=== PATIENT | male | born 1960 | race Caucasian/White ===

== ENCOUNTER 2023-08-18 14:04 | Inpatient (IN) | payer OTHER, SELFPAY ==
[2023-08-18] VITALS (19 sets, daily range): BP systolic 104–135; BP diastolic 50–81; BMI 35.1
--- NOTE | 2023-08-18 08:24 | ED.GENMED ---
History of Present Illness
<Christal Johnson PA-C - Last Filed: 08/18/23 10:46>
General
Chief Complaint: Weakness
Source: patient and ambulance crew
Exam Limitations: clinical condition
Time Seen by Provider: 08/18/23 08:18
Nursing documentation reviewed up to this point in time: agreed with
Travel History
Have you had any contact with someone who has COVID-19?: No
Do you have any symptoms of coronavirus? Fever > 100 degrees, chills, cough, shortness of breath, sore throat, loss of taste or smell, muscle aches, or headache?: No
History of Present Illness
History of Present Illness:
pt is a 62 y/o M wit hh/o alcoholic cirrhosis, recent hospitalization for hepatic encephalopathy thought ot be secondary to lactulose noncompliance
chronic pain on opiates
wuond vac on LLE amputation (? unclear)
here for dec mental status this am
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
pt was slow to respond to EMS, BP 70s/50s, accucheck 300
more awake and alert on arrival
pt has not had any complaints, he denies recent uri sxs, abd pain, vomiting, urinary symptoms,
it is not known whether pt has been taking the lactulose since discharge;
Past History
<Christal Johnson PA-C - Last Filed: 08/18/23 10:46>
Past History
ED Past Medical History: Arrthythmia, CHF, HTN, Hypercholesterolemia, IDDM and Other (Kidney disease, cirrhosis)
ED Past Surgical History: Orthopedic (Left BKA)
Social History
Tobacco: Non-smoker
Alcohol: None
Drug: None
Personal: Single
Living: [facility]
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
Family History
Family History: Other (Left AKA)
Review of Systems
<Christal Johnson PA-C - Last Filed: 08/18/23 10:46>
Review of Systems
Allergies reviewed?: Yes
Unable to obtain full review of systems at this time due to: due to acuity
All Other Systems: Not applicable
Phy Exam
<Christal Johnson PA-C - Last Filed: 08/18/23 10:46>
Physical Exam
Physical Exam:
GENERAL: awake, somewhat drowsy; globally confused , in no apparent distress
pale ill appearing
EYE: pupils equal and reactive , icteric, pale
NECK: Supple
ENT: o/p clr, dry mouth
CARDIAC tachy;
LUNGS: diminished breath sounds bases, no rhnochi or obvious rales
+ edema in RLE lymphedema, chroinc hyperpigmentation;
heme neg brown stool
ABDOMEN: Soft, without focal tenderness, no r/g, no cvat, normal bowel sounds
NEUROLOGICAL: Alert and orientedx 2, no focal neuro deficits, some mild dysarthria;
SKIN: Warm and dry, skin intact.
MUSCULOSKELETAL: lymphedema RLE; wound vac on left BKA
PSYCH: pt drowsy
Course
<NING Dior Last Filed: 08/18/23 10:46>
Orders/Labs/Results
Orders:
Orders
08/18/23 08:19
Electrocardiogram (*1) Urgent
Reason for Study: Other
Other Reason for Exam: sepsis
Cardiac Monitoring- Treatment ONCE
EKG- Treatment ONCE
0.9% Sodium Chloride 1000 ml [Nss] 1,000 ml IV BOLUS
Acetaminophen [Tylenol] 650 mg PO NOW STA
CR Chest Portable - 1 View Urgent
Comment:
Reason For Exam: fever, ams
Reason Study Needs to be Portable: Patient Unstable
O2 Therapy [RESP] Urgent
Titrate/Wean O2 to maintain O2 sat greater than (%): 92
08/18/23 08:22
Ammonia Urgent
COVID-19 Antigen Urgent
Source: Nasal Swab
Complete Blood Count/With Diff Urgent
Comprehensive Metabolic Panel Urgent
Lactic Acid Q4H
Comment: CANCEL 2nd LACTIC ACID IF 1st LACTIC ACID IS LESS THAN 2
NT-proBNP Urgent
PTT Urgent
Prothrombin Time Urgent
Troponin I Urgent
Influenza A+B Rapid Molecular Urgent
OC Source: Nasal Swab
Specimen Description:
08/18/23 08:23
Blood Culture Q30M
OC Source: Blood/Venous
Specimen Description:
08/18/23 08:29
Blood Culture Q30M
OC Source: Blood/Venous
Specimen Description:
08/18/23 09:02
Straight cath- Treatment ONCE
08/18/23 09:03
CT Abd/pel Without Iv Or Oral Urgent
Comment:
Reason For Exam: waldo, fever, hypotension
08/18/23 09:18
Urinalysis Reflex To Culture Urgent
Date Specimen was Collected: 08/18/23
Time Specimen was Collected: 09:16
Urine Microscopic Reflex Cult Urgent
Urine Culture Urgent
OC Source: U
Specimen Description:
Date Specimen was Collected: 08/18/23
Time Specimen was Collected: 09:16
08/18/23 09:25
CT Head W/o Iv Contrast Urgent
Comment:
Reason For Exam: confusion
08/18/23 09:59
CefTRIAXone [Rocephin] 1,000 mg IV NOW STA
08/18/23 12:30
Lactic Acid Q4H
Comment: CANCEL 2nd LACTIC ACID IF 1st LACTIC ACID IS LESS THAN 2
Abnormal Lab Results
08/18/23 08/18/23
08:22 09:18
WBC 4.3 L 10^3/uL
(4.8-10.8)
RBC 3.59 L 10^6/uL
(4.70-6.10)
Hgb 10.8 L g/dL
(13.0-18.0)
Hct 30.8 L %
(39.0-52.0)
RDW 15.2 H %
(11.5-14.5)
Plt Count 96 L 10^3/uL
(130-400)
MPV 10.8 H fL
(7.4-10.4)
Absolute Lymphs (auto) 0.9 L 10^3/uL
(1.2-3.4)
Lymphocytes % 19.6 L %
(20.5-51.1)
Monocytes % 11.1 H %
(1.7-9.3)
PT 16.9 H Sec
(11.4-14.6)
BUN 57 H mg/dl
(9-20)
Creatinine 1.9 H mg/dL
(0.7-1.3)
Glucose 284 H mg/dl
(70-99)
Total Bilirubin 1.6 H mg/dl
(0.2-1.3)
Alkaline Phosphatase 255 H U/L
(38-126)
Ammonia 54 H umol/L
(9-30)
Ur Occult Blood Reflex 1+ A
(Negative)
Leukocyte Esterase Rfl 2+ A
(Negative)
Urine RBC 11-15 A /HPF
(0-2)
Urine WBC (Reflex) 60-70 A /HPF
(0-5)
Urine Bacteria (Reflex) Many A
(Negative)
08/18/23 08:22
08/18/23 08:22
Vital Signs
Initial and Last Documented VS:
Initial Vital Signs
Temp Pulse Resp BP Pulse Ox
99 F 127 16 106/74 97
08/18/23 08:12 08/18/23 08:12 08/18/23 08:12 08/18/23 08:12 08/18/23 08:12
Last Documented Vital Signs
Temp Pulse Resp BP Pulse Ox
100.9 F H 60 16 133/63 94
08/18/23 08:16 08/18/23 09:57 08/18/23 08:42 08/18/23 09:56 08/18/23 09:57
<Hernandez Ernst MD - Last Filed: 08/18/23 09:49>
Orders/Labs/Results
Orders:
Orders
08/18/23 08:19
Electrocardiogram (*1) Urgent
Reason for Study: Other
Other Reason for Exam: sepsis
Cardiac Monitoring- Treatment ONCE
EKG- Treatment ONCE
0.9% Sodium Chloride 1000 ml [Nss] 1,000 ml IV BOLUS
Acetaminophen [Tylenol] 650 mg PO NOW STA
CR Chest Portable - 1 View Urgent
Comment:
Reason For Exam: fever, ams
Reason Study Needs to be Portable: Patient Unstable
O2 Therapy [RESP] Urgent
Titrate/Wean O2 to maintain O2 sat greater than (%): 92
08/18/23 08:22
Ammonia Urgent
COVID-19 Antigen Urgent
Source: Nasal Swab
Complete Blood Count/With Diff Urgent
Comprehensive Metabolic Panel Urgent
Lactic Acid Q4H
Comment: CANCEL 2nd LACTIC ACID IF 1st LACTIC ACID IS LESS THAN 2
NT-proBNP Urgent
PTT Urgent
Prothrombin Time Urgent
Troponin I Urgent
Influenza A+B Rapid Molecular Urgent
OC Source: Nasal Swab
Specimen Description:
08/18/23 08:23
Blood Culture Q30M
OC Source: Blood/Venous
Specimen Description:
08/18/23 08:29
Blood Culture Q30M
OC Source: Blood/Venous
Specimen Description:
08/18/23 09:02
Straight cath- Treatment ONCE
08/18/23 09:03
CT Abd/pel Without Iv Or Oral Urgent
Comment:
Reason For Exam: waldo, fever, hypotension
08/18/23 09:18
Urinalysis Reflex To Culture Urgent
Date Specimen was Collected: 08/18/23
Time Specimen was Collected: 09:16
Urine Microscopic Reflex Cult Urgent
Urine Culture Urgent
OC Source: U
Specimen Description:
Date Specimen was Collected: 08/18/23
Time Specimen was Collected: 09:16
08/18/23 09:25
CT Head W/o Iv Contrast Urgent
Comment:
Reason For Exam: confusion
08/18/23 09:59
CefTRIAXone [Rocephin] 1,000 mg IV NOW STA
08/18/23 12:30
Lactic Acid Q4H
Comment: CANCEL 2nd LACTIC ACID IF 1st LACTIC ACID IS LESS THAN 2
Abnormal Lab Results
08/18/23 08/18/23
08:22 09:18
WBC 4.3 L 10^3/uL
(4.8-10.8)
RBC 3.59 L 10^6/uL
(4.70-6.10)
Hgb 10.8 L g/dL
(13.0-18.0)
Hct 30.8 L %
(39.0-52.0)
RDW 15.2 H %
(11.5-14.5)
Plt Count 96 L 10^3/uL
(130-400)
MPV 10.8 H fL
(7.4-10.4)
Absolute Lymphs (auto) 0.9 L 10^3/uL
(1.2-3.4)
Lymphocytes % 19.6 L %
(20.5-51.1)
Monocytes % 11.1 H %
(1.7-9.3)
PT 16.9 H Sec
(11.4-14.6)
BUN 57 H mg/dl
(9-20)
Creatinine 1.9 H mg/dL
(0.7-1.3)
Glucose 284 H mg/dl
(70-99)
Total Bilirubin 1.6 H mg/dl
(0.2-1.3)
Alkaline Phosphatase 255 H U/L
(38-126)
Ammonia 54 H umol/L
(9-30)
Ur Occult Blood Reflex 1+ A
(Negative)
Leukocyte Esterase Rfl 2+ A
(Negative)
Urine RBC 11-15 A /HPF
(0-2)
Urine WBC (Reflex) 60-70 A /HPF
(0-5)
Urine Bacteria (Reflex) Many A
(Negative)
08/18/23 08:22
08/18/23 08:22
Vital Signs
Initial and Last Documented VS:
Initial Vital Signs
Temp Pulse Resp BP Pulse Ox
99 F 127 16 106/74 97
08/18/23 08:12 08/18/23 08:12 08/18/23 08:12 08/18/23 08:12 08/18/23 08:12
Last Documented Vital Signs
Temp Pulse Resp BP Pulse Ox
100.9 F H 60 16 133/63 94
08/18/23 08:16 08/18/23 09:57 08/18/23 08:42 08/18/23 09:56 08/18/23 09:57
<Christal Johnson PA-C - Last Filed: 08/18/23 10:46>
MDM/Problems Addressed
Differential Diagnosis Includes:
flu, covid, uti, sepsis, pneumonia, hepatic encephalopathy
MDM/Problems Addressed:
62 y/oM discharged 2 weeks ago for hepatic encephalopathy seconddary to noncompiance with lactulose; here with fever, dec mental status this am at home, hypotension for EMS; febrile 100.9; urine appears to be source; bp 130s, hr down to 60s from
120s; after fluids; abdomen no significant looking ascites, nontender; has WALDO; lactate normal; ct shows no obstructive uropathy; rocephin and cultulred
<Christal Johnson PA-C - Last Filed: 08/18/23 10:46>
*Critical Care Note
Total Time (30-74mins, 75-104mins- exclusive of procedures): Not Applicable
ED Attending Note
<Christal Johnson PA-C - Last Filed: 08/18/23 10:46>
-
Portions of this chart may have been created with voice recognition software.� Occasional wrong word or��sound alike� substitutions may have occurred due to the inherent limitations of voice recognition software.
<Hernandez Ernst MD - Last Filed: 08/18/23 09:49>
ED Attending Note
Patient seen and examined by attending physician: Yes
I performed the substantive portion of visit, reviewed & personally made and approve the management plan that is documented in note by myself or ALEX.: Yes
ED Attending Note:
62-year-old male complicated history including encephalopathy hypertension diabetes. Presents with weakness hypotension. No acute infectious symptoms denying cough congestion abdominal pain urinary symptoms. No change in the pain at his wound of
his left leg. Symptoms progressed over the last 3 to 4 days. Significant hypotension prior to ER arrival.
On exam patient is chronically ill-appearing he has a temperature of 100.9. No respiratory distress. Patient is tachycardic and regular no murmur. Abdomen soft and nontender. Elevated BMI. Left BKA. Right AKA. Wound VAC to the left leg. No
obvious cellulitis. Some ecchymosis to the left upper arm.
Previous testing reviewed. Discharge summary reviewed. Workup in progress. Septic workup in progress. Warrants admission.
Discharge Plan
Departure
Patient Disposition: Admit
Date of Disposition: 08/18/23
Time of Disposition: 10:39
Admit to: Telemetry
Presentation/result/management discussed w/ accepting MD/DO: Hospitalist
Patient with high blood pressure during this ER visit?: No
Condition: Fair
Covid-19: Negative COVID-19
Discharge Problem:
UTI (urinary tract infection), WALDO (acute kidney injury), AMS (altered mental status), Sepsis
Prescriptions:
No Action
atorvastatin 40 MG tablet
40 mg PO HS
aspirin 81 MG tablet,delayed release (DR/EC)
81 mg PO DAILY
calcitriol 0.25 MCG capsule
0.25 mcg PO DAILY
insulin aspart U-100 [Novolog FlexPen U-100 Insulin] 100 unit/mL (3 mL) insulin pen
22 unit SC AC
insulin degludec [Tresiba FlexTouch U-200] 200 unit/mL (3 mL) insulin pen
68 unit SC DAILY
potassium chloride 20 mEq tablet extended release
40 meq PO BID Qty: 120 0RF
magnesium oxide 500 mg Tablet
500 mg PO DAILY
tamsulosin 0.4 mg capsule
0.4 mg PO DAILY
sotalol 80 mg Tablet
80 mg PO BID 30 Days Qty: 60 0RF
lactulose 20 gram/30 mL Solution
20 g PO TID Qty: 60 0RF
trazodone 50 mg Tablet
50 mg PO HS PRN (Reason: SLEEP)
bumetanide 1 mg Tablet
1 mg PO BID
Centrum Silver Men [id number] mcg Tablet
1 tab PO DAILY
hydromorphone 8 mg tablet
8 mg PO TIDPRN PRN (Reason: severe pain) Qty: 20 0RF
miconazole nitrate 2 % Powder
1 applic TOPICAL BID PRN (Reason: apply to abd/groin folds/scrotal skin)
albuterol sulfate 90 mcg/actuation Hfa Aerosol Inhaler
2 puff INHALATION R Q4HPRN PRN (Reason: sob)
oxycodone 10 mg Tablet
10 mg PO Q4H PRN (Reason: severe pain)
naloxone [Narcan] 4 mg/actuation [place],Non-Aerosol
1 spray INTRANASAL DAILYPRN PRN (Reason: opioid overdose)
mecobalamin (vitamin B12) 2,500 mcg Tablet,Chewable
2,500 mcg PO DAILY
ascorbic acid (vitamin C) 1,000 mg Tablet
500 mg PO DAILY
Xifaxan 550 mg tablet
550 mg PO .2 TIMES A WEEK
Patient Comments:
08/18/2023, [facility] nurse does not know on which days of the week pt. receives this medication.
Referrals:
UNKNOWN - PT DOES,NOT KNOW [Family Provider] -
Interventions
Interventions:
*Risk Screen - Suicide Last Done: 08/18/23 08:15
*General Assessment Last Done: 08/18/23 08:15
*Neglect/Abuse Screening Last Done: 08/18/23 08:15
*ED COVID-19 Vaccine History Last Done: 08/18/23 08:15
ED- Cardiac Assessment Last Done: 08/18/23 08:16
ED- Neurological Assessment Last Done: 08/18/23 08:35
ED- Pulmonary Assessment Last Done: 08/18/23 08:16
[2023-08-18] MEDS: NSS 1000 IV ×2 (08:32→16:05)
[2023-08-18 08:35] LABS: % Basophils 0.7 % (0-2); % Eosinophils 1.2 % (0-6); % Immature Granulocytes 0.5 % (0-0.5); % Lymphocytes 19.6 % (20.5-51.1); % Monocytes 11.1 % (1.7-9.3); % Neutrophils 66.9 % (42.2-75.2); Absolute Eosinophils 0.1 10^3/uL (0-0.7); Absolute Lymphocytes 0.9 10^3/uL (1.2-3.4); Absolute Monocytes 0.5 10^3/uL (0.1-0.6); Absolute Neutrophils 2.9 10^3/uL (1.4-6.5); Hematocrit 30.8 % (39.0-52.0); Hemoglobin 10.8 g/dL (13.0-18.0); Mean Corp Hgb Conc. 35.1 g/dL (33.0-37.0); Mean Corpuscular Hgb 30.1 pg (27.0-31.0); Mean Corpuscular Volume 85.8 fL (80.0-94.0); Mean Platelet Volume 10.8 fL (7.4-10.4); Nucleated Red Blood Cells % 0 % (-); Platelet Count 96 10^3/uL (130-400); Red Blood Cell Count 3.59 10^6/uL (4.70-6.10); Red Cell Dist. Width 15.2 % (11.5-14.5); White Blood Cell Count 4.3 10^3/uL (4.8-10.8)
[2023-08-18] MEDS: TYLENOL 650 MG PO ×2 (08:36→20:25)
[2023-08-18 08:47] LABS: APTT 32.3 Sec (23.4-35.0); INR 1.37; PT 16.9 Sec (11.4-14.6)
[2023-08-18 08:48] LABS: Ammonia 54 umol/L (9-30); Lactic Acid 1.6 mmol/L (0.7-2.0)
[2023-08-18 08:50] LABS: ALT (SGPT) 30 U/L (0-50); AST (SGOT) 31 U/L (17-59); Albumin 3.5 g/dl (3.5-5.0); Alkaline Phosphatase 255 U/L (38-126); Blood Urea Nitrogen 57 mg/dl (9-20); Calcium 8.8 mg/dl (8.4-10.2); Carbon Dioxide 27 mmol/L (22-30); Chloride 100 mmol/L (98-107); Glucose 284 mg/dl (70-99); Potassium 3.7 mmol/L (3.5-5.1); Sodium 135 mmol/L (135-145); Total Bilirubin 1.6 mg/dl (0.2-1.3); Total Protein 6.7 g/dl (6.3-8.2); eGFR 39.39
[2023-08-18 08:59] LABS: COVID-19 Antigen Negative (Negative)
[2023-08-18 09:00] LABS: NT-proBNP 2270 pg/ml; Troponin I 0.024 ng/ml
[2023-08-18 09:33] LABS: Urine Albumin Trace (Neg - Trace); Urine Bilirubin Negative (Negative); Urine Character Slightly Cloudy (Clear); Urine Color Yellow; Urine Glucose Negative (Negative); Urine Ketone Negative (Negative); Urine Leukocyte 2+ (Negative); Urine Nitrite Negative (Negative); Urine Occult Blood 1+ (Negative); Urine Urobilinogen Negative (Neg - 1+)
[2023-08-18 09:56] LABS: Urine Squamous Cell 0-2 /LPF (Few)
[2023-08-18 09:57] LABS: Urine Hyaline Cast >15 /LPF (0-2)
[2023-08-18 09:58] LABS: Urine Bacteria Many (Negative); Urine White Cell 60-70 /HPF (0-5)
--- NOTE | 2023-08-18 09:59 | PHANOTE ---
08/18/2023, [facility], called [facility] nurse to obtain pt.'s current medication history; pt. is taking Sotalol 80 mg BID; however, pt. has also recently filled Metoprolol Succinate ER 25 mg BID on 08/03/2023 for a 30-day
supply and Carvedilol 12.5 mg BID on 08/10/2023 for a 30-day supply. Per home care paperwork, pt. is NOT taking Levothyroxine 137 mcg daily, Cholecalciferol 5,000 units daily, Gabapentin 300 mg BID, and Metolazone 5 mg MOTH. Pt. also taking Xifaxan
550 mg twice a week but home care nurse does not know on which days of the week pt. takes this med.
[2023-08-18] MEDS: ROCEPHIN 1000 MG IV (10:04)
--- NOTE | 2023-08-18 13:16 | HPS.HSE ---
Family Physician
-
Family Physician: NOT KNOW UNKNOWN - PT DOES
Chief Complaint
-
weakness
History of Present Illness
62 y/o M, hx of ETOH cirrhosis, with prior hx of HE, on chronic opiates, here for change in mental status (Decline in mentation) this morning. 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 He was slow to respond and found to have
hypotensive. On arrival, patient was awake and denied any specific complaints.
in ER, found to have elevated Ammonia level, WALDO, UTI, and admitted for further eval.
Medical History
Past Medical History
Past Medical History: Reports Other (ETOH cirrhosis, HFpEF, SVT, Aflutter, PAD, HTN, CKD 3a, IDDM, Obesity, HLD, Hypothyroidism, AOCD, BPH, RLE edema, chronic opiod dependance)
Past Surgical History: Reports Other (L AKA)
Social History
Tobacco: Non-smoker
Alcohol: None
Drug: None
Personal: Single
Living: Longterm ([facility])
Employment: Employed ([employer])
Family History
Family History: Not pertinent
Allergies / Home Medications
Allergies reflects when Allergies were last updated in [facility] [employer] [facility].
Home Medications with original date entered in [facility]
Allergy/Medication List:
Allergies
Allergy/AdvReac Type Severity Reaction Status Date / Time
No Known Allergies Allergy Verified 05/05/23 10:20
Home Medications
aspirin 81 mg tablet,delayed release 81 mg PO DAILY Blood clot prevention/tx 09/25/19
atorvastatin 40 mg tablet 40 mg PO HS High cholesterol 09/25/19
calcitriol 0.25 mcg capsule 0.25 mcg PO DAILY Kidney Disease 09/25/19
insulin aspart U-100 100 unit/mL (3 mL) subcutaneous pen (Novolog FlexPen U-100 Insulin aspart) 22 unit SC AC Diabetes 04/21/22
insulin degludec 200 unit/mL (3 mL) subcutaneous pen (Tresiba FlexTouch U-200 insulin) 68 unit SC DAILY Diabetes 09/20/22
magnesium oxide 500 mg PO DAILY Supplement 05/05/23
tamsulosin 0.4 mg capsule 0.4 mg PO DAILY prostate 05/05/23
trazodone 50 mg tablet 50 mg PO HS PRN SLEEP 07/21/23
bumetanide 1 mg tablet 1 mg PO BID Fluid Retention/Swelling 07/22/23
vwywisaa-ej-jnemt 300 mcg-K 60 mcg-lycop 600 mcg-lutein 300 mcg tablet (Centrum Silver Men) 1 tab PO DAILY Supplement 07/22/23
hydromorphone 8 mg tablet 8 mg PO TIDPRN PRN severe pain #20 tabs 07/29/23
albuterol sulfate 90 mcg/actuation aerosol inhaler 2 puff inhalation R Q4HPRN PRN sob 08/18/23
ascorbic acid (vitamin C) 1,000 mg tablet 500 mg PO DAILY Supplement 08/18/23
lactulose 20 gram/30 mL oral solution 20 g PO TID Liver Issues 08/18/23
mecobalamin (vitamin B12) 2,500 mcg chewable tablet 2,500 mcg PO DAILY Supplement 08/18/23
miconazole nitrate 2 % topical powder 1 applic topical BID PRN apply to abd/groin folds/scrotal skin 08/18/23
naloxone 4 mg/actuation nasal spray (Narcan) 1 spray intranasal DAILYPRN PRN opioid overdose 08/18/23
oxycodone 10 mg tablet 10 mg PO Q4H PRN severe pain 08/18/23
potassium chloride 20 mEq tablet,extended release 40 meq PO BID Electrolyte Repletion 08/18/23
rifaximin 550 mg tablet (Xifaxan) 550 mg PO BID Liver Issues 08/18/23
sotalol 80 mg tablet 80 mg PO BID Arrhythmia 08/18/23
Review of Systems
-
Unable to obtain full review of systems at this time due to: Acuity
Physical Exam
Vital Signs
Vital Signs
Temp Pulse Resp BP Pulse Ox
100.9 F H 60 16 117/61 93
08/18/23 08:16 08/18/23 13:00 08/18/23 08:42 08/18/23 13:00 08/18/23 13:00
Physical Exam
General: Obese and Other (globally confused, drowsy)
HEENT: NormoCephalic and Anicteric
Respiratory: Decreased Breath Sounds
Cardiac: Tachycardia
GI: Soft
Musculoskeletal: Edema, Right Lower Extremity
Neuro: No Motor Deficits and No Sensory Deficits
Psych: Calm
Laboratory Results
-
08/18/23 08:22
08/18/23 08:22
Laboratory Results
PT 16.9 Sec (11.4-14.6) H 08/18/23 08:22
INR 1.37 08/18/23 08:22
APTT 32.3 Sec (23.4-35.0) 08/18/23 08:22
Lactic Acid 1.6 mmol/L (0.7-2.0) 08/18/23 08:22
Total Bilirubin 1.6 mg/dl (0.2-1.3) H 08/18/23 08:22
AST 31 U/L (17-59) 08/18/23 08:22
ALT 30 U/L (0-50) 08/18/23 08:22
Alkaline Phosphatase 255 U/L (38-126) H 08/18/23 08:22
Troponin I 0.024 ng/ml 08/18/23 08:22
Data Reviewed
-
Lab Data: Labs Reviewed by me
Impression/Plan
-
Assessment:
Urinary tract infection, suspected ESBL given prior hx
- CT without obstructive changes
- start Meropenem
- consult ID
Recurrent hepatic encephalopathy in setting of UTI
Hx of ETOH cirrhosis
- continue Lactulose; may need to consider rectal route if cannot safely take PO
- continue Rifaximin
- consult GI
WALDO on suspected CKD stage 3a
- check urine studies
- bladder scans/SC protocol
- hold Bumex
- hold KCL supplements
- hold Calcitriol
Chronic HFpEF
- EF 55% on Echo 04/2023
- hold Bumex
hx of SVT
Atrial Flutter
- continue Sotalol
- continue ASA
PAD s/p L BKA with chronic wound VAC
Right lower extremity lymphedema.
- wound care evaluation
- continue ASA
Essential HTN
IDDM
- resume Tresiba and Novolog
- SSI
- A1c 7.4% recently
Morbid obesity
HLD
- statin
Hypothyroidism on replacement
Anemia of chronic disease
BPH with history of urinary retention requiring Theodore catheter previously
Chronic pain syndrome with opiate dependence
- on Dilaudid and Oxycodone
DVT ppx: SC heparin
Code: Full
[2023-08-18] MEDS: MERREM 1000 MG IV (14:25)
--- NOTE | 2023-08-18 14:49 | CON.GI ---
Consultation
-
Date/Time Consultation Requested: 08/18/23; 1430
Date/Time Consultation Performed: 08/18/23; 1450
Requesting Provider: Dr. Singh
Performing Provider: Dr. Leon
Reason for Consultation: hepatic encephalopathy
Medical History
Chief Complaint / HPI
Chief Complaint: confusion, hypotension
History of Present Illness:
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
IDDM, CHF, LE lymphedema, PAD, BKA,� SVT, acute on chronic CHF. He is here (seen in the ER) with weakness and confusion found to have a positive urinalysis and a fever of 100.9. When he was at home he felt weak and was unable to get around felt
more confused at home. Now he is alert and oriented x 3 with some mild asterixis on exam. Denies any shortness of breath, chest pain, burning when he urinates, abdominal pain, GI bleeding. States he did have a glass of wine at [place] but
otherwise no alcohol. Sees a marketing operations intern at [place] but he is not aware of his name.
His liver disease has been worked up at [facility]. He has been here a few times now with confusion usually secondary to infection and often ESBL UTI. He was also just here for the first roughly 2 weeks of July for encephalopathy likely
secondary to lactulose noncompliance and questionable UTI.
�Liver serology including hepatitis panel, JOHNNY, AMA, iron studies neg with AFP <0.8 in May.�
Past Medical History
Past Medical History: Other ( Alcoholic cirrhosis with recurrent hepatic encephalopathy. Heart failure preserved EF. SVT/atrial flutter PAD, status post left below-knee amputation at [facility], stump infection completed antibiotic course ,
currently on the wound VAC. Essential hypertension Chronic kidney disease stag)
Past Surgical History: Other (BKA, PPMplacement )
Social History
Tobacco: Non-Smoker
Alcohol: Former
Drug: None
Personal: Single
Employment: Retired
Family History
Family History: Reviewed & Not Pertinent
Allergies / Home Medications
Allergy/AdvReac Type Severity Reaction Status Date / Time
No Known Allergies Allergy Verified 05/05/23 10:20
Medication Instructions Recorded
aspirin 81 mg tablet,delayed 81 mg PO DAILY Blood clot 09/25/19
release prevention/tx
atorvastatin 40 mg tablet 40 mg PO HS High cholesterol 09/25/19
calcitriol 0.25 mcg capsule 0.25 mcg PO DAILY Kidney Disease 09/25/19
insulin aspart U-100 100 unit/mL 22 unit SC AC Diabetes 04/21/22
(3 mL) subcutaneous pen (Novolog
FlexPen U-100 Insulin aspart)
insulin degludec 200 unit/mL (3 68 unit SC DAILY Diabetes 09/20/22
mL) subcutaneous pen (Tresiba
FlexTouch U-200 insulin)
magnesium oxide 500 mg PO DAILY Supplement 05/05/23
tamsulosin 0.4 mg capsule 0.4 mg PO DAILY prostate 05/05/23
trazodone 50 mg tablet 50 mg PO HS PRN SLEEP 07/21/23
bumetanide 1 mg tablet 1 mg PO BID Fluid 07/22/23
Retention/Swelling
yweevhea-nr-crecw 300 mcg-K 60 1 tab PO DAILY Supplement 07/22/23
mcg-lycop 600 mcg-lutein 300 mcg
tablet (Centrum Silver Men)
hydromorphone 8 mg tablet 8 mg PO TIDPRN PRN severe pain #20 07/29/23
tabs
albuterol sulfate 90 mcg/actuation 2 puff inhalation R Q4HPRN PRN sob 08/18/23
aerosol inhaler
ascorbic acid (vitamin C) 1,000 mg 500 mg PO DAILY Supplement 08/18/23
tablet
lactulose 20 gram/30 mL oral 20 g PO TID Liver Issues 08/18/23
solution
mecobalamin (vitamin B12) 2,500 2,500 mcg PO DAILY Supplement 08/18/23
mcg chewable tablet
miconazole nitrate 2 % topical 1 applic topical BID PRN apply to 08/18/23
powder abd/groin folds/scrotal skin
naloxone 4 mg/actuation nasal 1 spray intranasal DAILYPRN PRN 08/18/23
spray (Narcan) opioid overdose
oxycodone 10 mg tablet 10 mg PO Q4H PRN severe pain 08/18/23
potassium chloride 20 mEq 40 meq PO BID Electrolyte Repletion 08/18/23
tablet,extended release
rifaximin 550 mg tablet (Xifaxan) 550 mg PO BID Liver Issues 08/18/23
sotalol 80 mg tablet 80 mg PO BID Arrhythmia 08/18/23
Review of Systems
Vital Signs
Temp Pulse Resp BP Pulse Ox
100.9 F H 60 16 117/61 93
08/18/23 08:16 08/18/23 13:00 08/18/23 08:42 08/18/23 13:00 08/18/23 13:00
Physical Exam
Exam
General: No Apparent Distress and Comfortable
HEENT: Anicteric
Respiratory: Clear
Cardiac: Murmur
GI: Soft, Non Tender and Non Distended
Musculoskeletal: Other (+left BKA with wound vac)
Skin: Warm
Neuro: AO x 3 and Other (+asterixis )
Psych: Calm
Results
WBC 4.3 10^3/uL (4.8-10.8) L 08/18/23 08:22
Hgb 10.8 g/dL (13.0-18.0) L 08/18/23 08:22
Hct 30.8 % (39.0-52.0) L 08/18/23 08:22
MCV 85.8 fL (80.0-94.0) 08/18/23 08:22
Plt Count 96 10^3/uL (130-400) L 08/18/23 08:22
Absolute Neuts (auto) 2.9 10^3/uL (1.4-6.5) 08/18/23 08:22
PT 16.9 Sec (11.4-14.6) H 08/18/23 08:22
INR 1.37 08/18/23 08:22
APTT 32.3 Sec (23.4-35.0) 08/18/23 08:22
Sodium 135 mmol/L (135-145) 08/18/23 08:22
Potassium 3.7 mmol/L (3.5-5.1) 08/18/23 08:22
Chloride 100 mmol/L (98-107) 08/18/23 08:22
Carbon Dioxide 27 mmol/L (22-30) 08/18/23 08:22
BUN 57 mg/dl (9-20) H 08/18/23 08:22
Creatinine 1.9 mg/dL (0.7-1.3) H 08/18/23 08:22
Calcium 8.8 mg/dl (8.4-10.2) 08/18/23 08:22
Total Bilirubin 1.6 mg/dl (0.2-1.3) H 08/18/23 08:22
AST 31 U/L (17-59) 08/18/23 08:22
ALT 30 U/L (0-50) 08/18/23 08:22
Alkaline Phosphatase 255 U/L (38-126) H 08/18/23 08:22
Diagnostic Image Results:
White count 4.3, hemoglobin 10.8 which is stable from his baseline, platelets 96, INR 1.37, creatinine 1.9 with a baseline of 1, total bilirubin 1.6 with a baseline closer to 1, sodium 135, albumin 3.5, ammonia 54, BNP 2270
MELD 3.0 20 (08/18/23)
--- Urinalysis shows WBCs of 60-70 many bacteria, slightly cloudy, culture pending, blood cultures pending
--- Reviewed CT scan from 08/18/2023 showing small volume perihepatic ascites, splenomegaly, nodular capsule of the liver suggesting cirrhosis, normal pancreas compression fracture of T12 mild concentric thickening of the urinary bladder consistent
with chronic partial bladder outlet obstruction
05/26/23 US abd with doppler
Hepatomegaly. Sonographic features consistent with cirrhosis.
Splenomegaly.
Mild perihepatic ascites.
Evidence of recannulated paraumbilical vein. Otherwise, normal ultrasound evaluation of the abdominal vasculature.
Contracted gallbladder with gallstones. No bile duct dilatation.
Prior GI Procedures:�
EGD:? [facility] in past �
Colonoscopy:� ? [facility] in past
Assessment / Plan
-
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
catheter, chronic opiate use, IDDM, CHF, LE lymphedema, PAD, BKA,� SVT, acute on chronic CHF. He is here (seen in the ER) for weakness, worsening mentation. In the ER he has an elevated ammonia, acute on chronic CKD, complicated UTI
# Hepatic encephalopathy - grade 2 +asterixis and he is now protecting his airway so oral intake is fine
--- Most likely infectious considering he has a fever of 100.9 and in a cirrhotic that is significant. Often times cirrhotics do not mount symptoms but they should be considered somewhat immunocompromised
--- White count 4.3, hemoglobin 10.8 which is stable from his baseline, platelets 96, INR 1.37, creatinine 1.9 with a baseline of 1, total bilirubin 1.6 with a baseline closer to 1, sodium 135, albumin 3.5, ammonia 54, BNP 2270
MELD 3.0 20 (08/18/23)
--- Urinalysis shows WBCs of 60-70 many bacteria, slightly cloudy, culture pending, blood cultures pending
--- Reviewed CT scan from 08/18/2023 showing small volume perihepatic ascites, splenomegaly, nodular capsule of the liver suggesting cirrhosis, normal pancreas compression fracture of T12 mild concentric thickening of the urinary bladder consistent
with chronic partial bladder outlet obstruction
-- Negative CT head, chest x-ray shows borderline pulmonary edema
--- not enough ascites to tap
-- Patient was started on meropenem and ID to see
Patient has other reasons for encephalopathy but infection is most likely. Otherwise acute on chronic kidney injury. Avoid all diuretics, lactulose titrate for 3 bowel movements a day -since the etiology of his encephalopathy is more likely
related to the infection I would not give him too much lactulose as he already has acute kidney injury, continue the Xifaxan
#WALDO - patient is infected and was on diuretics
avoid diuretics
if it doesn't improve by tomorrow give albumin 25% 1g/kg x 2-3 days
He has a marketing operations intern in [place] per patient. He does not know the name. He should follow-up with that physician
Strict NO etoh - had a glass of wine at [place]
GI will sign off, please call if we can help. Overall, kidney function is important. Treat the infection and if he becomes more encephalopathic feel free to call us back.
Data Reviewed
-
CT Scan: Report Reviewed by me
Old Records: Reviewed
-
-
Thank you for consultation and allowing me to participate in the patient's care. Please call the health education aide GI physician during the after hours with any questions or concerns.
[2023-08-18 15:05] LABS: Urine Sodium 54 mmol/L (30-90)
--- NOTE | 2023-08-18 15:48 | PTOTSP ---
Dysphagia Evaluation
Oral and pharyngeal stages of swallowing are WFL. No signs of aspiration observed. No further dysphagia tx warranted at this time.
Recommend:
1. Regular, Thin Liquids
2. Medications as best tolerated
[2023-08-18] MEDS: LACTULOSE ENEMA 300 ML RECTAL (16:05)
--- NOTE | 2023-08-18 16:18 | WOUNDNOTE ---
[facility] RN note: Patient admitted with mental status changes. Patient lives at the [facility] with VN for wound vac changes L BKA wound.
See H&P for complete history.
PMH: alcoholic cirrhosis, HF, a fib, lymphedema, BKA, HTN, CKD3a, DM, obesity, anemia, chronic pain, urinary retention, L BKA stump infection s/p excisional debridement with vac 05/2023.
Wound Location and type/assessment: Patient admitted with: Full thickness L BKA surgical wound with pink, granular tissue. One small area of adherent red/brown tissue. Surrounding skin intact. Old vac dressing removed with old sanguinous drainage
and mild odor. +2-3 edema RLE and L stump. R palpable pedal pulse. He has worn compression with Vinnie to L BKA and RLE during past admissions. Sacrum and heels intact. Mild MASD abdominal/groin folds, scrotal skin.
Appetite: patient unable to discuss appetite at this time.
Pressure redistribution devices in place: He can turn in bed slowly with assistance. He is on [facility] Air bed.
Plan: Old vac dressing removed and local wound care provided (see worklist). TT Denisse with vascular and recommended Vashe moistened gauze dressings with silicone border foam and compression if plan is to d/c vac. Awaiting vascular consult and
will continue to follow. GUILHERME Montes given update.
--- NOTE | 2023-08-18 16:22 | CON.VAS ---
Addendum entered and electronically signed by Shiraz Theodore III, MD 08/19/23 12:52:
This patient was seen and examined with MAY Acevedo. I agree with the history and physical exam as well as the assessment and plan.
Continue local wound care
F/U in the office as scheduled.
Call with questions.
[id number]
Original Note:
Consultation
Consultation Request
Performing Provider: Arben
Reason for Consultation: Left stump wound
Medical History
-
Chief Complaint: L BKA stump wound
History of Present Illness:
62-year-old male well-known to the vascular service, last seen in the office on 07/21/[address] Theodore. Stump wound is healing well at that time with wound VAC. Patient is status post excisional debridement of stump 05/21/2023. Next planned
follow-up is next week. Patient admitted yesterday through the emergency room for weakness and hypotension. Patient was most recently discharged 2 weeks ago for hepatic encephalopathy secondary to noncompliance with lactulose.
Vascular consult for left stump wound being managed by wound VAC. Patient seen at bedside this a.m. overall looks well. Left stump wound clean, superficial, granulating tissue, no drainage, baseline leg edema, redressed. Spoke with wound care at
bedside as well. Patient denies complaints at this time. No real vascular issues at this time.
Past Medical History
Past Medical History: Arrhythmias, CHF, HTN, Hypercholesterolemia, Hypothyroidism, IDDM and Other (cirrhosis, CKD, lymphedema)
Past Surgical History: Other (left BKA, debridement of BKA 06/09)
Social History
Tobacco: Non-Smoker
Alcohol: Former
Drug: None
Employment: Employed
Family History
Family History: Reviewed & Not Pertinent
Allergies / Home Medications
Allergy/AdvReac Type Severity Reaction Status Date / Time
No Known Allergies Allergy Verified 05/05/23 10:20
Medication Instructions Recorded Confirmed Type
aspirin 81 mg tablet,delayed 81 mg PO DAILY Blood clot 03/10/20 02/01/24 History
release prevention/tx
atorvastatin 40 mg tablet 40 mg PO HS High cholesterol 09/25/19 08/18/23 History
calcitriol 0.25 mcg capsule 0.25 mcg PO DAILY Kidney Disease 09/25/19 08/18/23 History
insulin aspart U-100 100 unit/mL 22 unit SC AC Diabetes 04/21/22 08/18/23 History
(3 mL) subcutaneous pen (Novolog
FlexPen U-100 Insulin aspart)
insulin degludec 200 unit/mL (3 68 unit SC DAILY Diabetes 09/20/22 08/18/23 History
mL) subcutaneous pen (Tresiba
FlexTouch U-200 insulin)
magnesium oxide 500 mg PO DAILY Supplement 05/05/23 08/18/23 History
tamsulosin 0.4 mg capsule 0.4 mg PO DAILY prostate 05/05/23 08/18/23 History
trazodone 50 mg tablet 50 mg PO HS PRN SLEEP 07/21/23 08/18/23 History
bumetanide 1 mg tablet 1 mg PO BID Fluid 07/22/23 08/18/23 History
Retention/Swelling
xbuyagyb-oq-xgdre 300 mcg-K 60 1 tab PO DAILY Supplement 07/22/23 08/18/23 History
mcg-lycop 600 mcg-lutein 300 mcg
tablet (Centrum Silver Men)
hydromorphone 8 mg tablet 8 mg PO TIDPRN PRN severe pain #20 07/29/23 08/18/23 Rx
tabs
albuterol sulfate 90 mcg/actuation 2 puff inhalation R Q4HPRN PRN sob 08/18/23 08/18/23 History
aerosol inhaler
ascorbic acid (vitamin C) 1,000 mg 500 mg PO DAILY Supplement 08/18/23 08/18/23 History
tablet
lactulose 20 gram/30 mL oral 20 g PO TID Liver Issues 08/18/23 08/18/23 History
solution
mecobalamin (vitamin B12) 2,500 2,500 mcg PO DAILY Supplement 08/18/23 08/18/23 History
mcg chewable tablet
miconazole nitrate 2 % topical 1 applic topical BID PRN apply to 08/18/23 08/18/23 History
powder abd/groin folds/scrotal skin
naloxone 4 mg/actuation nasal 1 spray intranasal DAILYPRN PRN 08/18/23 08/18/23 History
spray (Narcan) opioid overdose
oxycodone 10 mg tablet 10 mg PO Q4H PRN severe pain 08/18/23 08/18/23 History
potassium chloride 20 mEq 40 meq PO BID Electrolyte Repletion 08/18/23 08/18/23 History
tablet,extended release
rifaximin 550 mg tablet (Xifaxan) 550 mg PO BID Liver Issues 08/18/23 08/18/23 History
sotalol 80 mg tablet 80 mg PO BID Arrhythmia 08/18/23 08/18/23 History
Review of Systems
-
History Source: Patient
All other systems: Negative unless noted
Constitutional: Reports Fatigue
EENT: Reports No Symptoms
Respiratory: Reports No Symptoms
Cardiac: Reports No Symptoms
Vascular: Denies Leg Pain / Claudication
Abdomen/GI: Reports No Symptoms
: Reports No Symptoms
Musculoskeletal: Reports No Symptoms
Skin: Reports Other (VAC)
Neurological: Reports No Symptoms
Endocrine: Reports No Symptoms
Physical Exam
Vital Signs
Temp Pulse Resp BP Pulse Ox
97.7 F 64 16 128/62 96
08/18/23 15:16 08/18/23 15:16 08/18/23 15:16 08/18/23 15:16 08/18/23 15:23
Lab Results
08/18/23 08:22
08/18/23 08:22
Troponin I 0.024 ng/ml 08/18/23 08:22
Ell-V-Nfcamelkvrr Pept 2270 pg/ml 08/18/23 08:22
Physical Exam
General: No Apparent Distress
HEENT: Normocephalic and Atraumatic
Respiratory: Non Labored Respirations
Cardiac: Negative JVD
Breast: Deferred by me
GI: Soft and Non Tender
Musculoskeletal: No Clubbing, No Cyanosis and Edema (+2/3 BL LE)
Skin: Warm, Rash and Other (See wound care note)
Neuro: Awake and Alert
Psych: Calm
Assessment / Plan
-
Plan:
-DC wound vac, Cont with local wound care
-Follow up as planned in vascular office
[2023-08-18 16:26] LABS: Glucose - Point of Care 260 mg/dl (70-99)
[2023-08-18] MEDS: NOVOLOG FLEXPEN-LOW RESISTANCE 2 UNITS SC (16:35)
[2023-08-18] MEDS: DUPHALAC/CHRONULAC 20 GRAMS PO (16:35)
[2023-08-18] MEDS: NOVOLOG FLEXPEN 22 UNITS SC (16:36)
--- NOTE | 2023-08-18 16:37 | W.PN.UPDATE ---
Update Note
Progress Note Update
Consulted to evaluate amputation site. Attempted to see patient, but he was undergoing nursing care for enema. Will return later to see patient or tomorrow morning. Wound care pictures reviewed. Wound site looks clean with excellent granulation
tissue.
--- NOTE | 2023-08-18 17:11 | CON.ID ---
Consultation
-
Date/Time Consultation Requested: 08/18/23 13:35
Date/Time Consultation Performed: 08/18/23 16:00
Requesting Provider: Dr Singh
Performing Provider: Dr Israel
Reason for Consultation: esbl uti
Chief Complaint / Past History
Chief Complaint
confusion
History of Present Illness
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 Reports he cant urinate at thsi time - unclear if dysuria. no
urgency. no suprapubic tenderness. No: shortness of breath, chest pain, burning when he urinates, abdominal pain, GI bleeding. Not taking any alcohol. He has had a recent urine culture with an ESBL e coli which was assessed as symptomatic
bacturia. Presented with a wound vac on the L amputation site.
Since arrival here he has been afebrile, bp stable, wbc 4.3, hgb 10.8, plt 96, no L shift, cr baseline 0.9 now 1.9, k 3.7, t bili 1.6, ast 31, alt 30, alk phos 255, ua 60-70 wbc/hpf and many bacteria, he had a dose of ceftriaxone and is now on
meropenem/rifaxamin. ID is consulted for assistance with managment.
Past History
Additional Past Medical History:
ETOH cirrhosis, HFpEF, SVT, Aflutter, PAD, HTN, CKD 3a, IDDM, Obesity, HLD, Hypothyroidism, AOCD, BPH, RLE edema, chronic opiod dependance
Additional Past Surgical History:
L AKA)
Allergy History:
No Known Allergies Allergy (Verified 05/05/23 10:20)
Medications Reviewed: Yes
Social History
Tobacco: Non-Smoker
Alcohol: None
Drug: None
Family History
Family History: Not Pertinent
Review of Systems
Review of Systems
General: Negative Fever or Chills
All systems: All other systems were reviewed and were negative
Vital Signs
Temp Pulse Resp BP Pulse Ox
97.7 F 64 16 128/62 96
08/18/23 15:16 08/18/23 15:16 08/18/23 15:16 08/18/23 15:16 08/18/23 15:23
Physical Exam
Physical Exam
Constitutional: No Acute Distress
Cardiovascular: Regular Rate and S1/S2; Negative Murmur or Rub
Pulmonary: Clear and Symmetric; Negative Wheezes, Rales or Rhonchi
Gastrointestinal: Soft, Non Tender, Non Distended and Normal Bowel Sounds
Genito-Urinary: Negative Suprapubic Tenderness
Skin: Warm and Dry; Negative Rash or Jaundice
Wound: Other (granulation tissue in the L amputation wound bed)
Lab / Diagnostic Study Results
08/18/23 08:22
08/18/23 08:22
Abs Immat Gran (auto) 0.0 10^3/uL (0-0.05) 08/18/23 08:22
Absolute Neuts (auto) 2.9 10^3/uL (1.4-6.5) 08/18/23 08:22
Absolute Lymphs (auto) 0.9 10^3/uL (1.2-3.4) L 08/18/23 08:22
Absolute Monos (auto) 0.5 10^3/uL (0.1-0.6) 08/18/23 08:22
Absolute Basos (auto) 0.0 10^3/uL (0-0.2) 08/18/23 08:22
Immature Gran % 0.5 % (0-0.5) 08/18/23 08:22
Neutrophils % 66.9 % (42.2-75.2) 08/18/23 08:22
Lymphocytes % 19.6 % (20.5-51.1) L 08/18/23 08:22
Monocytes % 11.1 % (1.7-9.3) H 08/18/23 08:22
Eosinophils % 1.2 % (0-6) 08/18/23 08:22
Basophils % 0.7 % (0-2) 08/18/23 08:22
PT 16.9 Sec (11.4-14.6) H 08/18/23 08:22
INR 1.37 08/18/23 08:22
Lactic Acid 1.6 mmol/L (0.7-2.0) 08/18/23 08:22
Ur Squamous Epith Cells 0-2 /LPF (Few) 08/18/23 09:18
Microbiology Results
Micro:
08/18/23 09:18 Urine Culture - Pending
Urine
08/18/23 08:22 Influenza Types A & B (WANG) - Final
Nasal Swab Negative for Influenza A & B, NAAT
Negative results must be combined with clinical observations
and patient history.
Nucleic Acid Amplification test (NAAT)performed on the
[employer] ID NOW platform.
08/18/23 08:29 Blood Culture - Pending
Blood/Venous
08/18/23 08:23 Blood Culture - Pending
Blood/Venous
Assessment / Plan
Suspected Prostatitis
WALDO
Colonization with ESBL e coli
- urine culture in progress, ua with pyuria
- blood cultures x2 no growth to date
- c/w meropenem - dose adjusted to 500 mg iv q8hrs
- renal US
- duran for suspected retention
- follow clinically
--- NOTE | 2023-08-18 17:47 | PTCARENOTE ---
pt admitted to 2N from the ED this afternoon. pt had indwelling duran placed at bedside. tolerated and had output of 750ml. see Worklist for proper documentation. pt is from [facility], has L BKA and came in with wound care set up in place without
the wound vac. this nurse and woundcare assessed the site and it had dark brown drainage, foul odor and local erythema and boggy skin around the area. pt received a lactulose enema this afternoon but was not able to keep any of it within his rectum
despite instruction. pt also received oral lactulose. pt is aaox3 and states that he is feeling a lot better at this time. NSS is running at 60ml/hr through his R wrist site. he was oriented to the room, call light and shown how to make outside of
the hospital phone calls by this nurse.
--- NOTE | 2023-08-18 19:20 | PTCARENOTE ---
Patient back on floor from imaging
[2023-08-18] MEDS: BETAPACE 80 MG PO (20:26)
[2023-08-18] MEDS: DUPHALAC/CHRONULAC PO ×2 (20:26→21:55)
[2023-08-18] MEDS: HEPARIN 5000 UNITS SC (20:26)
[2023-08-18] MEDS: XIFAXAN 550 MG PO (20:35)
[2023-08-18 21:45] LABS: Glucose - Point of Care 288 mg/dl (70-99)
[2023-08-18] MEDS: DESYREL 50 MG PO (23:12)
[2023-08-19] VITALS (7 sets, daily range): BP systolic 116–154; BP diastolic 55–68; BMI 35.6
[2023-08-19] MEDS: STERILE WATER FOR INJECTION 10 ML IV ×3 (02:12→21:33)
[2023-08-19] MEDS: MERREM 500 MG IV ×4 (02:12→21:33)
[2023-08-19 04:54] LABS: % Basophils 0.9 % (0-2); % Eosinophils 4.5 % (0-6); % Immature Granulocytes 0.3 % (0-0.5); % Lymphocytes 30.1 % (20.5-51.1); % Monocytes 12.5 % (1.7-9.3); % Neutrophils 51.7 % (42.2-75.2); Absolute Eosinophils 0.2 10^3/uL (0-0.7); Absolute Monocytes 0.4 10^3/uL (0.1-0.6); Absolute Neutrophils 1.7 10^3/uL (1.4-6.5); Hematocrit 27.2 % (39.0-52.0); Hemoglobin 9.2 g/dL (13.0-18.0); Mean Corp Hgb Conc. 33.8 g/dL (33.0-37.0); Mean Corpuscular Hgb 29.8 pg (27.0-31.0); Mean Platelet Volume 10.9 fL (7.4-10.4); Nucleated Red Blood Cells % 0 % (-); Platelet Count 79 10^3/uL (130-400); Red Blood Cell Count 3.09 10^6/uL (4.70-6.10); Red Cell Dist. Width 15.3 % (11.5-14.5); White Blood Cell Count 3.4 10^3/uL (4.8-10.8)
[2023-08-19 05:46] LABS: ALT (SGPT) 24 U/L (0-50); AST (SGOT) 25 U/L (17-59); Albumin 2.6 g/dl (3.5-5.0); Alkaline Phosphatase 174 U/L (38-126); Blood Urea Nitrogen 64 mg/dl (9-20); Calcium 8.2 mg/dl (8.4-10.2); Carbon Dioxide 23 mmol/L (22-30); Chloride 101 mmol/L (98-107); Estimated Creatinine Clearance 69 ml/min; Glucose 372 mg/dl (70-99); Iron 66 ug/dl (49-181); Magnesium 2.3 mg/dl (1.6-2.3); Percent Saturation 24 % (20-50); Potassium 2.6 mmol/L (3.5-5.1); Sodium 136 mmol/L (135-145); Total Bilirubin 1.1 mg/dl (0.2-1.3); Total Iron Binding Capacity 265 ug/dl (261-462); Total Protein 5.4 g/dl (6.3-8.2); eGFR > 60.00
[2023-08-19 06:04] LABS: Vitamin B12 > 1000 pg/ml (239-931)
[2023-08-19] MEDS: KCL 40 MEQ PO ×3 (06:10→20:24)
[2023-08-19 07:13] LABS: Glucose - Point of Care 360 mg/dl (70-99)
[2023-08-19] MEDS: DUPHALAC/CHRONULAC 20 GRAMS PO ×3 (07:57→17:17)
[2023-08-19] MEDS: BETAPACE 80 MG PO ×2 (07:57→20:25)
[2023-08-19] MEDS: SYNTHROID 137 MCG PO (07:57)
[2023-08-19] MEDS: XIFAXAN 550 MG PO ×2 (07:57→20:29)
[2023-08-19] MEDS: FLOMAX 0.400000000000000022 MG PO (07:57)
[2023-08-19] MEDS: HEPARIN 5000 UNITS SC ×2 (07:58→20:23)
[2023-08-19] MEDS: NOVOLOG FLEXPEN-LOW RESISTANCE 5 UNITS SC (07:59)
[2023-08-19] MEDS: NOVOLOG FLEXPEN 22 UNITS SC ×2 (07:59→13:57)
[2023-08-19] MEDS: LANTUS 0.680000000000000049 UNITS SC (08:14)
[2023-08-19] MEDS: ROXICODONE 10 MG PO ×3 (08:30→20:27)
--- NOTE | 2023-08-19 09:07 | WOUNDNOTE ---
[facility] RN note: Patient admitted with mental status changes. Patient lives at the [facility] with VN for wound vac changes L BKA wound.
See H&P for complete history.
PMH: alcoholic cirrhosis, HF, a fib, lymphedema, BKA, HTN, CKD3a, DM, obesity, anemia, chronic pain, urinary retention, L BKA stump infection s/p excisional debridement with vac 05/2023.
Wound Location and type/assessment: Patient admitted with: Full thickness L BKA surgical wound with pink, granular tissue. One small area of adherent red/brown tissue. Surrounding skin intact. Old vac dressing removed with old sanguinous drainage
and mild odor. +2-3 edema RLE and L stump. R palpable pedal pulse. He has worn compression with Vinnie to L BKA and RLE during past admissions. Sacrum and heels intact. Mild MASD abdominal/groin folds, scrotal skin.
Appetite: patient unable to discuss appetite at this time.
Pressure redistribution devices in place: He can turn in bed slowly with assistance. He is on [facility] Air bed.
Plan: Old vac dressing removed and local wound care provided (see worklist). TT Denisse with vascular and recommended Vashe moistened gauze dressings with silicone border foam and compression if plan is to d/c vac. Awaiting vascular consult and
will continue to follow. GUILHERME Montes given update.
[2023-08-19 11:32] LABS: Glucose - Point of Care 334 mg/dl (70-99)
--- NOTE | 2023-08-19 11:47 | W.PN.HOSP.TC ---
Today's Communication/Plan
-
continue Iv Abx, continue Lactulose
wound care
PT/OT
Assessment / Plan
Assessment / Plan
Assessment:
Urinary tract infection, suspected ESBL given prior hx
- CT without obstructive changes; Renal US without hydro
- continue Meropenem
- continue Theodore due to acute retention
- follow ID recs
Recurrent hepatic encephalopathy in setting of UTI
Hx of ETOH cirrhosis
- continue Lactulose PO. Did received 1 rectal lactulose yesterday. Mentation greatly improved
- continue Rifaximin
- appreciate GI recs
- follow up with [facility] Hepatology.
WALDO on suspected CKD stage 3a
- pre-renal with also concern for obstructive component
- bladder scans/SC protocol
- hold Bumex
- hold KCL supplements
- hold Calcitriol
- s/p IVF x 1 bag
- continue Theodore
Chronic HFpEF
- EF 55% on Echo 04/2023
- hold Bumex
hx of SVT
Atrial Flutter
- continue Sotalol
- continue ASA
PAD s/p L BKA with chronic wound VAC
Right lower extremity lymphedema.
- wound care following
- Vascular service following; currently without wound VAC
- follow their wound care orders
- continue ASA
Essential HTN
IDDM with hyperglycemia in setting of infection
- resume Tresiba 68 units AM and Novolog 22 units - titrate accordingly
- SSI
- A1c 7.4% recently
Morbid obesity
HLD
- statin
Hypothyroidism on replacement
Anemia of chronic disease
BPH with history of urinary retention requiring Theodore catheter previously
- Theodore placed for acute retention here
Chronic pain syndrome with opiate dependence
- on Dilaudid and Oxycodone
DVT ppx: SC heparin
Code: Full
Anticipated Discharge: > 48 hours
Subjective/Interval History
-
Date of Service: August 19, 2023
more alert today, denies any new complaints
Objective Data
-
Labs:
Laboratory Results
08/19/23
04:42
WBC 3.4 L
Hgb 9.2 L
Hct 27.2 L
Plt Count 79 L
Sodium 136
Potassium 2.6 L* D
Chloride 101
Carbon Dioxide 23
BUN 64 H
Creatinine 1.3
Glucose 372 H
Calcium 8.2 L
Total Bilirubin 1.1
AST 25
ALT 24
Alkaline Phosphatase 174 H
Vital Signs:
Vital Signs
Temp Pulse Resp BP Pulse Ox
98.1 F 62 16 116/55 98
08/19/23 11:46 08/19/23 11:46 08/19/23 11:46 08/19/23 11:46 08/19/23 11:46
I&O
08/18/23 08/19/23 08/20/23
06:59 06:59 06:59
Intake Total 1859 / 1859
Output Total 1750 / 1750
Balance 110 / 110
Physical Exam
-
General: No Apparent Distress
HEENT: Normocephalic and Atraumatic
Respiratory: Negative Wheezes
Cardiac: Regular Rhythm
GI: Soft and Nontender
Genito-urinary: No Costovertebral Tender
Neuro: AO x 3
Psych: Calm
Data Reviewed
-
Total Time Spent with Patient (in minutes): 45
Labs: Labs Reviewed by me
--- NOTE | 2023-08-19 12:40 | W.PN.ID1 ---
Date of Service
Date of Service: August 19, 2023
Today's Communication
- urine culture in progress, ua with pyuria - follow for ID/sensi
- blood cultures x2 no growth to date
- c/w meropenem - dose adjusted to 500 mg iv q6hrs given improving renal function - plan 2 weeks treatment for prostatitis
Assessment / Plan
Suspected Prostatitis
WALDO - improving
Colonization with ESBL e coli
- urine culture in progress, ua with pyuria - follow for ID/sensi
- blood cultures x2 no growth to date
- c/w meropenem - dose adjusted to 500 mg iv q6hrs given improving renal function - plan 2 weeks treatment for prostatitis
- midline ordered
- renal US - no obstruction after duran placed
- follow clinically
Chief Complaint
-: UTI and Other (prostatitis)
Subjective / Review of Systems
afebrile
bp stable
cr improving
mild leukopenia
urine culture GNR
blood cultures no growth to date
Vital Signs / Physical Exam
Vital Signs
Vital Signs
Temp Pulse Resp BP Pulse Ox
98.1 F 62 16 116/55 98
08/19/23 11:46 08/19/23 11:46 08/19/23 11:46 08/19/23 11:46 08/19/23 11:46
Physical Exam
Constitutional: No Acute Distress
Cardiovascular: Regular Rate and S1/S2; Negative Murmur or Rub
Pulmonary: Clear and Symmetric; Negative Wheezes or Rales
Gastrointestinal: Soft, Non Tender, Non Distended and Normal Bowel Sounds
Genito-Urinary: Negative Suprapubic Tenderness
Skin: Warm and Dry; Negative Rash or Jaundice
Objective Data
Lab Data
Lab Results
08/19/23 04:42
08/19/23 04:42
PT 16.9 Sec (11.4-14.6) H 08/18/23 08:22
INR 1.37 08/18/23 08:22
APTT 32.3 Sec (23.4-35.0) 08/18/23 08:22
Estimated Creat Clear 69 ml/min 08/19/23 04:42
Lactic Acid Cancelled 08/18/23 08:23
Total Bilirubin 1.1 mg/dl (0.2-1.3) 08/19/23 04:42
AST 25 U/L (17-59) 08/19/23 04:42
ALT 24 U/L (0-50) 08/19/23 04:42
Alkaline Phosphatase 174 U/L (38-126) H 08/19/23 04:42
Most recent labs reviewed.
Micro Results:
08/18/23 09:18 Urine Culture - Preliminary
Urine Gram negative bacilli
08/18/23 08:29 Blood Culture - Preliminary
Blood/Venous No Growth in 24 hours- Final report to follow
08/18/23 08:23 Blood Culture - Preliminary
Blood/Venous No Growth in 24 hours- Final report to follow
08/18/23 08:22 Influenza Types A & B (WANG) - Final
Nasal Swab Negative for Influenza A & B, NAAT
Negative results must be combined with clinical observations
and patient history.
Nucleic Acid Amplification test (NAAT)performed on the
[employer] platform.
Care Review
Plan reviewed with: Physician (Dr Singh - plans)
--- NOTE | 2023-08-19 13:51 | WOUNDNOTE ---
[facility] RN NOTE: Confirmed wound care and compression orders with Denisse Blake NP. No wound vac to be placed at this time. Hospitalist updated and orders and careplan updated. GUILHERME Linda updated. SPD called for Vas[place]ulo. Will continue to follow as needed.
[2023-08-19] MEDS: TYLENOL 650 MG PO (13:56)
[2023-08-19] MEDS: NOVOLOG FLEXPEN-LOW RESISTANCE 4 UNITS SC (13:57)
--- NOTE | 2023-08-19 15:13 | PTOTSP ---
Attempted to see patient for evaluation. Patient seen earlier sitting edge of bed, noting he had gotten himself there and back independently and plans to continue doing so for meals. The patient declined attempts to scoot to bedside chair with
armrest down despite encouragement, noting he will remain in bed or seated edge of bed while hospitalized. Patient anticipates returning [facility] the [facility] with support. Patient agreeable to signing off while hospitalized; please reconsult if needs
arise.
--- NOTE | 2023-08-19 15:39 | CM ---
Reviewed the chart notes and spoke with the patient at the bedside. The patient resides in a [place]ory on a [place] along with other monks. He has a first floor bedroom with complete bath. There is a ramp to enter the building. The patient
has a rolling walker,wheelchair, and an electric scooter. The patient is current with [facility] and has been to [facility] in the past. Patient most likely being discharged on IV abx. Patient anticipates being discharged back to home with resumption of [facility] and assistance with IV administration from the veterinary bacteriologist. CM continues to be available to patient/family and is monitoring medical plan for needs at discharge.
Plan: Discharge plans will depend on the patient's progress. Home with resumption of [facility] or may need short term rehab.
[2023-08-19 16:39] LABS: Glucose - Point of Care 132 mg/dl (70-99)
[2023-08-19 18:08] LABS: Glucose - Point of Care 102 mg/dl (70-99)
[2023-08-19] MEDS: NOVOLOG FLEXPEN-LOW RESISTANCE SC (18:17)
[2023-08-19] MEDS: NOVOLOG FLEXPEN SC (18:18)
--- NOTE | 2023-08-19 18:18 | PTCARENOTE ---
Pt refused standing order of Insulin before meal, MD aware. Pt refused standing order of insulin after BS was rechecked after dinner, MD aware.
[2023-08-19] MEDS: LIPITOR 40 MG PO (21:32)
[2023-08-19] MEDS: FLUSH (NSS) 2 FLUSH IV (21:34)
[2023-08-19 21:38] LABS: Glucose - Point of Care 124 mg/dl (70-99)
[2023-08-20] MEDS: ROXICODONE 10 MG PO ×5 (00:50→22:22)
[2023-08-20] MEDS: MERREM 500 MG IV ×4 (03:12→21:10)
[2023-08-20] MEDS: FLUSH (NSS) 2 FLUSH IV ×2 (03:13→21:12)
[2023-08-20] MEDS: STERILE WATER FOR INJECTION 10 ML IV ×4 (03:13→21:10)
[2023-08-20 03:30] VITALS: BP 137/66
[2023-08-20 04:31] VITALS: BMI 35.8
[2023-08-20 05:56] LABS: % Basophils 0.7 % (0-2); % Eosinophils 7.4 % (0-6); % Immature Granulocytes 0.2 % (0-0.5); % Lymphocytes 24.1 % (20.5-51.1); % Monocytes 10.4 % (1.7-9.3); % Neutrophils 57.2 % (42.2-75.2); Absolute Eosinophils 0.3 10^3/uL (0-0.7); Absolute Monocytes 0.4 10^3/uL (0.1-0.6); Absolute Neutrophils 2.3 10^3/uL (1.4-6.5); Hematocrit 26.9 % (39.0-52.0); Hemoglobin 9.5 g/dL (13.0-18.0); Mean Corp Hgb Conc. 35.3 g/dL (33.0-37.0); Mean Corpuscular Hgb 29.9 pg (27.0-31.0); Mean Corpuscular Volume 84.6 fL (80.0-94.0); Mean Platelet Volume 10.4 fL (7.4-10.4); Nucleated Red Blood Cells % 0 % (-); Platelet Count 86 10^3/uL (130-400); Red Blood Cell Count 3.18 10^6/uL (4.70-6.10)
[2023-08-20] MEDS: SYNTHROID 137 MCG PO (06:10)
[2023-08-20 06:26] LABS: ALT (SGPT) 30 U/L (0-50); AST (SGOT) 39 U/L (17-59); Albumin 2.9 g/dl (3.5-5.0); Alkaline Phosphatase 204 U/L (38-126); Blood Urea Nitrogen 57 mg/dl (9-20); Calcium 8.6 mg/dl (8.4-10.2); Carbon Dioxide 28 mmol/L (22-30); Chloride 102 mmol/L (98-107); Estimated Creatinine Clearance 82 ml/min; Glucose 158 mg/dl (70-99); Sodium 136 mmol/L (135-145); Total Bilirubin 1.1 mg/dl (0.2-1.3); Total Protein 5.9 g/dl (6.3-8.2); eGFR > 60.00
[2023-08-20 07:13] LABS: Glucose - Point of Care 172 mg/dl (70-99)
[2023-08-20 07:41] VITALS: BP 148/65
[2023-08-20] MEDS: KCL 40 MEQ PO ×2 (08:12→21:09)
[2023-08-20] MEDS: FLOMAX 0.400000000000000022 MG PO (08:12)
[2023-08-20] MEDS: DUPHALAC/CHRONULAC 20 GRAMS PO ×3 (08:12→17:08)
[2023-08-20] MEDS: BETAPACE 80 MG PO ×2 (08:13→21:05)
[2023-08-20] MEDS: XIFAXAN 550 MG PO ×2 (08:13→21:09)
[2023-08-20] MEDS: ASPIR LOW (ENTERIC COATED) 81 MG PO (08:13)
[2023-08-20] MEDS: ROCALTROL 0.25 MCG PO (08:13)
[2023-08-20] MEDS: LANTUS 0.680000000000000049 UNITS SC (08:13)
[2023-08-20] MEDS: NOVOLOG FLEXPEN 22 UNITS SC ×2 (08:14→17:05)
[2023-08-20] MEDS: NOVOLOG FLEXPEN-LOW RESISTANCE 1 UNITS SC ×2 (08:14→17:06)
[2023-08-20] MEDS: HEPARIN 5000 UNITS SC ×2 (08:14→21:06)
--- NOTE | 2023-08-20 08:49 | W.PN.ID1 ---
Date of Service
Date of Service: August 20, 2023
Today's Communication
Continue meropenem
Assessment / Plan
Suspected Prostatitis with ESBL e. coli
WALDO - improving
Colonization with ESBL e coli
- urine culture in progress, ua with pyuria - follow for ID/sensi
- blood cultures x2 no growth to date
- c/w meropenem - dose adjusted to 500 mg iv q6hrs given improving renal function - plan 2 weeks treatment for prostatitis
- midline ordered
- renal US - no obstruction after duran placed
- follow clinically
Chief Complaint
-: UTI and Other (prostatitis)
Subjective / Review of Systems
Doing better.
Vital Signs / Physical Exam
Vital Signs
Vital Signs
Temp Pulse Resp BP Pulse Ox
98.0 F 61 16 148/65 98
08/20/23 07:41 08/20/23 08:13 08/20/23 07:41 08/20/23 08:13 08/20/23 07:41
Physical Exam
Constitutional: No Acute Distress
Cardiovascular: Regular Rate and S1/S2
Pulmonary: Clear
Gastrointestinal: Soft, Non Tender and Non Distended
Genito-Urinary: Duran and Turbid Urine
Extremities: Edema (RLE lymphedema)
Neurological: AO x 3
Objective Data
Lab Data
Lab Results
08/20/23 05:29
08/20/23 05:29
PT 16.9 Sec (11.4-14.6) H 08/18/23 08:22
INR 1.37 08/18/23 08:22
APTT 32.3 Sec (23.4-35.0) 08/18/23 08:22
Estimated Creat Clear 82 ml/min 08/20/23 05:29
Lactic Acid Cancelled 08/18/23 08:23
Total Bilirubin 1.1 mg/dl (0.2-1.3) 08/20/23 05:29
AST 39 U/L (17-59) 08/20/23 05:29
ALT 30 U/L (0-50) 08/20/23 05:29
Alkaline Phosphatase 204 U/L (38-126) H 08/20/23 05:29
Most recent labs reviewed.
Micro Results:
08/18/23 08:29 Blood Culture - Preliminary
Blood/Venous No Growth in 48 hours- Final report to follow
08/18/23 08:23 Blood Culture - Preliminary
Blood/Venous No Growth in 48 hours- Final report to follow
08/18/23 09:18 Urine Culture - Preliminary
Urine Gram negative bacilli
08/18/23 08:22 Influenza Types A & B (WANG) - Final
Nasal Swab Negative for Influenza A & B, NAAT
Negative results must be combined with clinical observations
and patient history.
Nucleic Acid Amplification test (NAAT)performed on the
[employer] platform.
[2023-08-20 10:53] VITALS: BP 150/70
[2023-08-20 11:22] LABS: Glucose - Point of Care 209 mg/dl (70-99)
--- NOTE | 2023-08-20 11:32 | W.PN.HOSP.TC ---
Today's Communication/Plan
-
continue Merrem
setup home IV Abx. CM aware
Assessment / Plan
Assessment / Plan
Assessment:
Multi-drug resistance ESBL UTI
- CT without obstructive changes; Renal US without hydro
- continue Meropenem q6h via Midline - will need home infusion setup. CM aware. follow ID recs
- Theodore placed for acute retention here; for void trial Tuesday
Recurrent hepatic encephalopathy in setting of UTI
Hx of ETOH cirrhosis
- continue Lactulose PO to titrate 2-3 BMs daily. Did received 1 rectal lactulose on admission. Mentation greatly improved
- continue Rifaximin
- appreciate GI recs
- follow up with [facility] Hepatology.
WALDO on suspected CKD stage 3a
- pre-renal with also concern for obstructive component
- bladder scans/SC protocol
- hold Bumex
- hold KCL supplements
- hold Calcitriol
- s/p IVF x 1 bag
- continue Theodore
Hypokalemia - repleted
Chronic HFpEF
- EF 55% on Echo 04/2023
- hold Bumex
hx of SVT
Atrial Flutter
- continue Sotalol
- continue ASA
PAD s/p L BKA with chronic wound VAC
Right lower extremity lymphedema.
- wound care following
- Vascular service following; currently without wound VAC
- follow their wound care orders
- continue ASA
Essential HTN
IDDM with hyperglycemia in setting of infection
- resume Tresiba 68 units AM and Novolog 22 units - titrate accordingly
- SSI
- A1c 7.4% recently
Morbid obesity
HLD
- statin
Hypothyroidism on replacement
Anemia of chronic disease
BPH with history of urinary retention requiring Theodore catheter previously
- Theodore placed for acute retention here; for void trial Tuesday
Chronic pain syndrome with opiate dependence
- on Dilaudid and Oxycodone
DVT ppx: SC heparin
Code: Full
Anticipated Discharge: > 48 hours
Subjective/Interval History
-
Date of Service: August 20, 2023
no new concerns
Objective Data
-
Labs:
Laboratory Results
08/20/23
05:29
WBC 4.0 L
Hgb 9.5 L
Hct 26.9 L
Plt Count 86 L
Sodium 136
Potassium 4.0 D
Chloride 102
Carbon Dioxide 28
BUN 57 H
Creatinine 1.1
Glucose 158 H
Calcium 8.6
Total Bilirubin 1.1
AST 39
ALT 30
Alkaline Phosphatase 204 H
Vital Signs:
Vital Signs
Temp Pulse Resp BP Pulse Ox
97.5 F 67 16 150/70 98
08/20/23 10:53 08/20/23 10:53 08/20/23 10:53 08/20/23 10:53 08/20/23 10:53
I&O
08/19/23 08/20/23 08/21/23
06:59 06:59 06:59
Intake Total 1860 / 1860 1380 / 1380
Output Total 1750 / 1750 3125 / 3125
Balance 110 / 110 -1745 / -1745
Physical Exam
-
General: No Apparent Distress
HEENT: Normocephalic and Atraumatic
Respiratory: Negative Wheezes
Cardiac: Regular Rhythm
GI: Soft
Genito-urinary: No Costovertebral Tender
Neuro: AO x 3
Hematologic / Lymphatic: No Lymphadenopathy
Psych: Calm
Data Reviewed
-
Total Time Spent with Patient (in minutes): 45
Labs: Labs Reviewed by me
[2023-08-20] MEDS: NOVOLOG FLEXPEN SC (13:02)
[2023-08-20] MEDS: NOVOLOG FLEXPEN-LOW RESISTANCE SC (13:03)
[2023-08-20 14:44] VITALS: BP 147/64
--- NOTE | 2023-08-20 16:13 | CHAP ---
Fr. Barrientos was gracious and in good spirits. He said the treatment he's receiving is helping, and he hopes he won't have to keep coming back. We prayed together in [place].
[2023-08-20 16:40] LABS: Glucose - Point of Care 153 mg/dl (70-99)
[2023-08-20 19:14] VITALS: BP 136/63
[2023-08-20 20:08] LABS: Glucose - Point of Care 81 mg/dl (70-99)
[2023-08-20] MEDS: LIPITOR 40 MG PO (21:09)
[2023-08-20 23:42] VITALS: BP 129/56
[2023-08-21] VITALS (8 sets, daily range): BP systolic 139–169; BP diastolic 68–82; BMI 35.6
[2023-08-21] MEDS: MERREM 500 MG IV ×4 (03:17→22:53)
[2023-08-21] MEDS: FLUSH (NSS) 2 FLUSH IV (03:21)
[2023-08-21] MEDS: STERILE WATER FOR INJECTION 10 ML IV ×4 (03:21→22:53)
[2023-08-21] MEDS: ROXICODONE 10 MG PO ×4 (03:29→19:18)
[2023-08-21] MEDS: SYNTHROID 137 MCG PO (06:01)
[2023-08-21 07:41] LABS: Glucose - Point of Care 106 mg/dl (70-99)
[2023-08-21] MEDS: HEPARIN 5000 UNITS SC ×2 (08:11→19:23)
[2023-08-21] MEDS: DUPHALAC/CHRONULAC 20 GRAMS PO ×3 (08:11→18:10)
[2023-08-21] MEDS: FLOMAX 0.400000000000000022 MG PO (08:12)
[2023-08-21] MEDS: BETAPACE 80 MG PO ×2 (08:12→19:23)
[2023-08-21] MEDS: ASPIR LOW (ENTERIC COATED) 81 MG PO (08:14)
[2023-08-21] MEDS: ROCALTROL 0.25 MCG PO (08:14)
[2023-08-21] MEDS: KCL 40 MEQ PO ×2 (08:15→19:22)
[2023-08-21] MEDS: XIFAXAN 550 MG PO ×2 (08:15→19:23)
[2023-08-21 08:46] LABS: % Basophils 1.1 % (0-2); % Eosinophils 7.5 % (0-6); % Immature Granulocytes 0.3 % (0-0.5); % Lymphocytes 23.2 % (20.5-51.1); % Monocytes 8.8 % (1.7-9.3); % Neutrophils 59.1 % (42.2-75.2); Absolute Eosinophils 0.3 10^3/uL (0-0.7); Absolute Lymphocytes 0.9 10^3/uL (1.2-3.4); Absolute Monocytes 0.3 10^3/uL (0.1-0.6); Absolute Neutrophils 2.2 10^3/uL (1.4-6.5); Hematocrit 29.5 % (39.0-52.0); Hemoglobin 10.1 g/dL (13.0-18.0); Mean Corp Hgb Conc. 34.2 g/dL (33.0-37.0); Mean Corpuscular Hgb 29.8 pg (27.0-31.0); Mean Platelet Volume 10.4 fL (7.4-10.4); Nucleated Red Blood Cells % 0 % (-); Platelet Count 91 10^3/uL (130-400); Red Blood Cell Count 3.39 10^6/uL (4.70-6.10); Red Cell Dist. Width 14.9 % (11.5-14.5); White Blood Cell Count 3.8 10^3/uL (4.8-10.8)
[2023-08-21 09:05] LABS: ALT (SGPT) 33 U/L (0-50); AST (SGOT) 45 U/L (17-59); Albumin 3.3 g/dl (3.5-5.0); Alkaline Phosphatase 245 U/L (38-126); Blood Urea Nitrogen 40 mg/dl (9-20); Calcium 8.6 mg/dl (8.4-10.2); Carbon Dioxide 28 mmol/L (22-30); Chloride 108 mmol/L (98-107); Estimated Creatinine Clearance 100 ml/min; Glucose 143 mg/dl (70-99); Potassium 4.6 mmol/L (3.5-5.1); Sodium 137 mmol/L (135-145); Total Bilirubin 1.1 mg/dl (0.2-1.3); Total Protein 6.4 g/dl (6.3-8.2); eGFR > 60.00
--- NOTE | 2023-08-21 09:27 | W.PN.ID1 ---
Date of Service
Date of Service: August 21, 2023
Today's Communication
Continue meropenem.
Assessment / Plan
Suspected Prostatitis with ESBL e. coli
WALDO - improving
Colonization with ESBL e coli
- urine culture: + ESBL-Ecoli
- blood cultures x2 no growth to date
- c/w meropenem - dose adjusted to 500 mg iv q6hrs given improving renal function - plan 2 weeks treatment for prostatitis
- midline in place
- renal US - no obstruction after duran placed
- follow clinically
Chief Complaint
-: UTI and Other (prostatitis)
Subjective / Review of Systems
Feels well.
Vital Signs / Physical Exam
Vital Signs
Vital Signs
Temp Pulse Resp BP Pulse Ox
97.7 F 69 16 150/82 98
08/21/23 07:17 08/21/23 08:12 08/21/23 07:17 08/21/23 08:12 08/21/23 07:17
Physical Exam
Constitutional: No Acute Distress and Comfortable
Gastrointestinal: Soft, Non Tender and Non Distended
Genito-Urinary: Duran and Clear Urine
Neurological: AO x 3
Objective Data
Lab Data
Lab Results
08/21/23 08:36
08/21/23 08:36
PT 16.9 Sec (11.4-14.6) H 08/18/23 08:22
INR 1.37 08/18/23 08:22
APTT 32.3 Sec (23.4-35.0) 08/18/23 08:22
Estimated Creat Clear 100 ml/min 08/21/23 08:36
Lactic Acid Cancelled 08/18/23 08:23
Total Bilirubin 1.1 mg/dl (0.2-1.3) 08/21/23 08:36
AST 45 U/L (17-59) 08/21/23 08:36
ALT 33 U/L (0-50) 08/21/23 08:36
Alkaline Phosphatase 245 U/L (38-126) H 08/21/23 08:36
Most recent labs reviewed.
Micro Results:
08/18/23 08:29 Blood Culture - Preliminary
Blood/Venous No Growth in 72 hours- Final report to follow
08/18/23 08:23 Blood Culture - Preliminary
Blood/Venous No Growth in 72 hours- Final report to follow
08/18/23 09:18 Urine Culture - Final
Urine Escherichia coli - ESBL
08/18/23 08:22 Influenza Types A & B (WANG) - Final
Nasal Swab Negative for Influenza A & B, NAAT
Negative results must be combined with clinical observations
and patient history.
Nucleic Acid Amplification test (NAAT)performed on the
[employer] platform.
[2023-08-21] MEDS: NOVOLOG FLEXPEN-LOW RESISTANCE SC (10:12)
[2023-08-21] MEDS: NOVOLOG FLEXPEN SC ×2 (10:14→12:45)
--- NOTE | 2023-08-21 11:28 | W.PN.HOSP.TC ---
Today's Communication/Plan
-
home IV Abx setup for Tuesday DC
titrate down Insulin doses
wound Left leg stump wound care
Assessment / Plan
Assessment / Plan
Assessment:
Multi-drug resistance ESBL UTI
- CT without obstructive changes; Renal US without hydro
- continue Meropenem q6h via Midline - will need home infusion setup. CM aware. follow ID recs
- Theodore placed for acute retention here; for void trial Tuesday
Recurrent hepatic encephalopathy in setting of UTI
Hx of ETOH cirrhosis
- continue Lactulose PO to titrate 2-3 BMs daily. Did received 1 rectal lactulose on admission. Mentation greatly improved
- continue Rifaximin
- appreciate GI recs
- follow up with [facility] Hepatology.
WALDO on suspected CKD stage 3a
- pre-renal with also concern for obstructive component
- hold Bumex + KCL supplements - resume nearer to discharge
- continue Calcitriol
- s/p IVF x 1 bag
- Theodore placed for acute retention here; for void trial Tuesday
Hypokalemia - repleted
Chronic HFpEF
- EF 55% on Echo 04/2023
- hold Bumex + KCL supplements - resume nearer to discharge
hx of SVT
Atrial Flutter
- continue Sotalol
- continue ASA
PAD s/p L BKA with chronic wound VAC
Right lower extremity lymphedema.
- wound care following
- Vascular service following; currently without wound VAC
- follow their wound care orders
- continue ASA
Essential HTN
IDDM with hyperglycemia in setting of infection
- resume Tresiba 68 units AM and Novolog 22 units but with hypoglycemia 2/3, will reduce Tresiba to 50 and Novolog to 15
- SSI
- A1c 7.4% recently
Morbid obesity
HLD
- statin
Hypothyroidism on replacement
Anemia of chronic disease
BPH with history of urinary retention requiring Theodore catheter previously
- Theodore placed for acute retention here; for void trial Tuesday
Chronic pain syndrome with opiate dependence
- on Dilaudid and Oxycodone
DVT ppx: SC heparin
Code: Full
Anticipated Discharge: 24 - 48 hours
Subjective/Interval History
-
Date of Service: August 21, 2023
no new complaints
overnight sugars were low, requiring ice cream and juice for recovery
Objective Data
-
Labs:
Laboratory Results
08/21/23
08:36
WBC 3.8 L
Hgb 10.1 L
Hct 29.5 L
Plt Count 91 L
Sodium 137
Potassium 4.6
Chloride 108 H
Carbon Dioxide 28
BUN 40 H
Creatinine 0.9
Glucose 143 H
Calcium 8.6
Total Bilirubin 1.1
AST 45
ALT 33
Alkaline Phosphatase 245 H
Vital Signs:
Vital Signs
Temp Pulse Resp BP Pulse Ox
97.7 F 69 16 150/82 98
08/21/23 07:17 08/21/23 08:12 08/21/23 07:17 08/21/23 08:12 08/21/23 07:17
I&O
08/20/23 08/21/23 08/22/23
06:59 06:59 06:59
Intake Total 1380 / 1380 1350 / 1350
Output Total 3125 / 3125 3500 / 3500
Balance -1745 / -1745 -2150 / -2150
Physical Exam
-
General: No Apparent Distress
HEENT: Normocephalic and Atraumatic
Respiratory: Negative Wheezes or Rales
Cardiac: Regular Rhythm and S1/S2
GI: Soft and Nontender
Musculoskeletal: No Edema
Neuro: AO x 3
Hematologic / Lymphatic: No Lymphadenopathy
Psych: Calm
Data Reviewed
-
Total Time Spent with Patient (in minutes): 45
Labs: Labs Reviewed by me
[2023-08-21 11:36] LABS: Glucose - Point of Care 243 mg/dl (70-99)
[2023-08-21] MEDS: LANTUS SC (12:10)
[2023-08-21] MEDS: NOVOLOG FLEXPEN-LOW RESISTANCE 2 UNITS SC (12:40)
[2023-08-21] MEDS: LANTUS 0.5 UNITS SC (12:41)
[2023-08-21] MEDS: APRESOLINE 5 MG IV (14:22)
--- NOTE | 2023-08-21 16:21 | PTCARENOTE ---
Elevated BP this afternoon, 160s/70-80s. Dr. Singh aware. Order received for x1 dose hydralazine, given. BP gghamaf=770/74.
[2023-08-21 16:53] LABS: Glucose - Point of Care 189 mg/dl (70-99)
[2023-08-21] MEDS: NOVOLOG FLEXPEN-LOW RESISTANCE 1 UNITS SC (18:10)
[2023-08-21 22:07] LABS: Glucose - Point of Care 122 mg/dl (70-99)
[2023-08-21] MEDS: LIPITOR 40 MG PO (22:50)
[2023-08-21] MEDS: DILAUDID 8 MG PO (22:59)
[2023-08-22 03:41] VITALS: BP 140/69
[2023-08-22] MEDS: STERILE WATER FOR INJECTION 10 ML IV ×2 (04:58→10:33)
[2023-08-22] MEDS: MERREM 500 MG IV ×2 (04:58→10:32)
[2023-08-22] MEDS: ROXICODONE 10 MG PO (05:11)
[2023-08-22 06:00] VITALS: BMI 35.3
[2023-08-22] MEDS: SYNTHROID 137 MCG PO (06:16)
[2023-08-22 07:12] VITALS: BP 169/81
[2023-08-22 08:01] LABS: Glucose - Point of Care 122 mg/dl (70-99)
--- NOTE | 2023-08-22 08:15 | PTCARENOTE ---
pt bp this am 169/81,61. no s/s of distress noted. Md aware. No new orders at this time. plan of care ongoing. call [facility] within reach.
[2023-08-22] MEDS: ROCALTROL 0.25 MCG PO (08:19)
[2023-08-22] MEDS: HEPARIN 5000 UNITS SC (08:19)
[2023-08-22] MEDS: DUPHALAC/CHRONULAC 20 GRAMS PO ×2 (08:19→12:26)
[2023-08-22] MEDS: ASPIR LOW (ENTERIC COATED) 81 MG PO (08:20)
[2023-08-22] MEDS: BETAPACE 80 MG PO (08:20)
[2023-08-22] MEDS: XIFAXAN 550 MG PO (08:20)
[2023-08-22] MEDS: FLOMAX 0.400000000000000022 MG PO (08:20)
[2023-08-22] MEDS: KCL 40 MEQ PO (08:21)
[2023-08-22] MEDS: NOVOLOG FLEXPEN-LOW RESISTANCE SC ×2 (08:22→12:21)
[2023-08-22] MEDS: LANTUS 0.5 UNITS SC (08:30)
--- NOTE | 2023-08-22 08:44 | VATNOTE ---
R midline dressing was changed last night by RN. Line redressed with central line dressing kit today by this RN. Pt c/o itchiness at site, multiple scratch escobar around dressing site. Will continue to monitor.
[2023-08-22 08:49] LABS: Hematocrit 29.9 % (39.0-52.0); Hemoglobin 10.3 g/dL (13.0-18.0); Mean Corp Hgb Conc. 34.4 g/dL (33.0-37.0); Mean Corpuscular Hgb 30.4 pg (27.0-31.0); Mean Corpuscular Volume 88.2 fL (80.0-94.0); Mean Platelet Volume 9.9 fL (7.4-10.4); Platelet Count 83 10^3/uL (130-400); Red Blood Cell Count 3.39 10^6/uL (4.70-6.10); Red Cell Dist. Width 14.8 % (11.5-14.5); White Blood Cell Count 3.2 10^3/uL (4.8-10.8)
[2023-08-22 09:17] LABS: Blood Urea Nitrogen 41 mg/dl (9-20); Carbon Dioxide 25 mmol/L (22-30); Chloride 105 mmol/L (98-107); Estimated Creatinine Clearance 100 ml/min; Glucose 185 mg/dl (70-99); Sodium 138 mmol/L (135-145); eGFR > 60.00
--- NOTE | 2023-08-22 10:19 | W.DS.TRANS ---
DC Summary - Engineering Documentation Specialist
-
Discharge Instructions:
Discharge Diagnosis/Procedures UTI, hepatic encephalopathy, acute kidney injury
Diet Diabetic, Carb Controlled
Activity With assistance
Driving Restrictions No driving
Bathing Restrictions None
Other Services VN
Instructions:
Stand-Alone Forms:
Changes to Home Medications: No
Discharge Medications:
DC Medications w/original date entered in [employer]
aspirin 81 mg tablet,delayed release 81 mg PO DAILY Blood clot prevention/tx 09/25/19
atorvastatin 40 mg tablet 40 mg PO HS High cholesterol 09/25/19
calcitriol 0.25 mcg capsule 0.25 mcg PO DAILY Kidney Disease 09/25/19
insulin aspart U-100 100 unit/mL (3 mL) subcutaneous pen (Novolog FlexPen U-100 Insulin aspart) 22 unit SC AC Diabetes 04/21/22
insulin degludec 200 unit/mL (3 mL) subcutaneous pen (Tresiba FlexTouch U-200 insulin) 68 unit SC DAILY Diabetes 09/20/22
magnesium oxide 500 mg PO DAILY Supplement 05/05/23
tamsulosin 0.4 mg capsule 0.4 mg PO DAILY prostate 05/05/23
trazodone 50 mg tablet 50 mg PO HS PRN SLEEP 07/21/23
bumetanide 1 mg tablet 1 mg PO BID Fluid Retention/Swelling 07/22/23
[id number] 300 mcg-K 60 mcg-lycop 600 mcg-lutein 300 mcg tablet (Centrum Silver Men) 1 tab PO DAILY Supplement 07/22/23
albuterol sulfate 90 mcg/actuation aerosol inhaler 2 puff inhalation R Q4HPRN PRN sob 08/18/23
ascorbic acid (vitamin C) 1,000 mg tablet 500 mg PO DAILY Supplement 08/18/23
lactulose 20 gram/30 mL oral solution 20 g PO TID Liver Issues 08/18/23
mecobalamin (vitamin B12) 2,500 mcg chewable tablet 2,500 mcg PO DAILY Supplement 08/18/23
miconazole nitrate 2 % topical powder 1 applic topical BID PRN apply to abd/groin folds/scrotal skin 08/18/23
naloxone 4 mg/actuation nasal spray (Narcan) 1 spray intranasal DAILYPRN PRN opioid overdose 08/18/23
rifaximin 550 mg tablet (Xifaxan) 550 mg PO BID Liver Issues 08/18/23
sotalol 80 mg tablet 80 mg PO BID Arrhythmia 08/18/23
levothyroxine 137 mcg tablet 137 mcg PO DAILY AT 0700 #0 tabs 08/22/23
meropenem 500 mg intravenous solution 500 mg IV Q6H #0 ea 08/22/23
oxycodone 10 mg tablet 10 mg PO Q4H PRN severe pain #12 tabs 08/22/23
potassium chloride 20 mEq tablet,extended release 40 meq PO BID Electrolyte Repletion #12 tabs 08/22/23
Home Medication Changes
Pending Results: No
--- NOTE | 2023-08-22 10:19 | W.PN.HOSP.TC ---
Addendum entered and electronically signed by Royal Poe DO 08/23/23 12:40:
- Sepsis was present on admission
Original Note:
Today's Communication/Plan
-
Discharge
Assessment / Plan
Assessment / Plan
Gen-AAOx3, NAD
HEENT-NC, AT, anicteric, clear oral mm
Neck-supple
CV-reg, no M, +S1/S2
Lungs-clear B/L
Abd-soft, NT, ND
Ext-no edema
Musculoskeletal-no cyanosis, clubbing
Skin-warm and dry
Neuro-grossly non-focal
Psych-calm, cooperative
Multi-drug resistance ESBL UTI
- CT without obstructive changes; Renal US without hydro
- continue Meropenem q6h via Midline - will need home infusion setup. CM aware. follow ID recs
- Theodore removed this morning. Check bladder scan. Discussed with nursing.
Recurrent hepatic encephalopathy in setting of UTI
Hx of ETOH cirrhosis
- continue Lactulose PO to titrate 2-3 BMs daily. Did received 1 rectal lactulose on admission. Mentation greatly improved
- continue Rifaximin
- appreciate GI recs
- follow up with [facility] Hepatology.
WALDO on suspected CKD stage 3a
- pre-renal with also concern for obstructive component
- hold Bumex + KCL supplements - resume nearer to discharge
- continue Calcitriol
- s/p IVF x 1 bag
- Theodore placed for acute retention here; for void trial Tuesday
Hypokalemia - repleted
Chronic HFpEF
- EF 55% on Echo 04/2023
- hold Bumex + KCL supplements - resume nearer to discharge
hx of SVT
Atrial Flutter
- continue Sotalol
- continue ASA
PAD s/p L BKA with chronic wound VAC
Right lower extremity lymphedema.
- wound care following
- Vascular service following; currently without wound VAC
- follow their wound care orders
- continue ASA
Essential HTN -stable.
DM 2 with hyperglycemia in setting of infection
- resume Tresiba 68 units AM and Novolog 22 units but with hypoglycemia 2/3, will reduce Tresiba to 50 and Novolog to 15
- SSI
- A1c 7.4% recently
Morbid obesity due to excess calories
HLD
- statin
Hypothyroidism on replacement
Anemia of chronic disease
BPH with history of urinary retention requiring Theodore catheter previously
- Theodore placed for acute retention here; for void trial Tuesday
Chronic pain syndrome with opiate dependence
- on Dilaudid and Oxycodone
DVT ppx: SC heparin
Code: Full
Dispo -medically stable for discharge home today with VNA and home antibiotics. Case management aware.
35 minutes spent in discharge process.
Anticipated Discharge: Today
Subjective/Interval History
-
Date of Service: August 22, 2023
Patient seen and examined. No complaints. Eager to go home.
Objective Data
-
Labs:
Laboratory Results
08/22/23
08:32
WBC 3.2 L
Hgb 10.3 L
Hct 29.9 L
Plt Count 83 L
Sodium 138
Potassium 5.0
Chloride 105
Carbon Dioxide 25
BUN 41 H
Creatinine 0.9
Glucose 185 H
Calcium 9.0
Vital Signs:
Vital Signs
Temp Pulse Resp BP Pulse Ox
97.6 F 61 18 169/81 97
08/22/23 07:12 08/22/23 08:20 08/22/23 07:12 08/22/23 08:20 08/22/23 07:12
I&O
08/21/23 08/22/2324
06:59 06:59 06:59
Intake Total 1350 / 1350 1800 / 1800
Output Total 3500 / 3500 2600 / 2600
Balance -2150 / -2150 -800 / -800
Review of Systems
-
History Source: Patient
All other systems: Reviewed and negative
--- NOTE | 2023-08-22 10:51 | W.PN.ID1 ---
Date of Service
Date of Service: August 22, 2023
Today's Communication
Replace meropenem with Ertapenem 1g IV q24 (easier dosing) to complete 14d course through 09/01/23.
Home infusion sheet submitted to case advocate.
Assessment / Plan
Suspected Prostatitis with ESBL e. coli
WALDO - improving
Colonization with ESBL e coli
- urine culture: + ESBL-Ecoli
- blood cultures x2 no growth to date
- renal US - no obstruction. Theodore removed.
- Replace meropenem with Ertapenem 1g IV q24 (easier dosing) to complete 14d course through 09/01/23.
- midline in place
-Home IV infusion sheet submitted to pillowcase maker.
Chief Complaint
-: UTI and Other (prostatitis)
Subjective / Review of Systems
No complaints.
Vital Signs / Physical Exam
Vital Signs
Vital Signs
Temp Pulse Resp BP Pulse Ox
97.6 F 61 18 169/81 97
08/22/23 07:12 08/22/23 08:20 08/22/23 07:12 08/22/23 08:20 08/22/23 07:12
Physical Exam
Constitutional: No Acute Distress and Comfortable
Cardiovascular: Regular Rate and S1/S2
Pulmonary: Clear
Gastrointestinal: Soft, Non Tender and Non Distended
Lines: Other (RUE midline intact)
Objective Data
Lab Data
Lab Results
08/22/23 08:32
08/22/23 08:32
PT 16.9 Sec (11.4-14.6) H 08/18/23 08:22
INR 1.37 08/18/23 08:22
APTT 32.3 Sec (23.4-35.0) 08/18/23 08:22
Estimated Creat Clear 100 ml/min 08/22/23 08:32
Lactic Acid Cancelled 08/18/23 08:23
Total Bilirubin 1.1 mg/dl (0.2-1.3) 08/21/23 08:36
AST 45 U/L (17-59) 08/21/23 08:36
ALT 33 U/L (0-50) 08/21/23 08:36
Alkaline Phosphatase 245 U/L (38-126) H 08/21/23 08:36
Most recent labs reviewed.
Micro Results:
08/18/23 08:29 Blood Culture - Preliminary
Blood/Venous No Growth in 4 days- Final report to follow
08/18/23 08:23 Blood Culture - Preliminary
Blood/Venous No Growth in 4 days- Final report to follow
08/18/23 09:18 Urine Culture - Final
Urine Escherichia coli - ESBL
08/18/23 08:22 Influenza Types A & B (WANG) - Final
Nasal Swab Negative for Influenza A & B, NAAT
Negative results must be combined with clinical observations
and patient history.
Nucleic Acid Amplification test (NAAT)performed on the
[employer] platform.
Care Review
Plan reviewed with: Physician (Dr. Poe)
[2023-08-22 11:05] VITALS: BP 157/74
--- NOTE | 2023-08-22 11:11 | CM ---
Addendum entered by Marianne Rivera RN 08/22/23 16:05:
Call placed to [facility] for address: Bita Villegas Father's Halle Moreno Angie of [facility].
Addendum entered by Marianne Rivera RN 08/22/23 15:20:
[facility] will not be able to service patient as his insurance dictates that VN come from infusion [facility]. [facility] Home Care will following for wound care.
[facility] Home Care
Addendum entered by Marianne Rivera RN 08/22/23 12:21:
Malu with [facility] Home Care called to request referral to [facility] be made for midline care. They do not feel comfortable providing service. Referral sent to [facility] via [facility].
Original Note:
Reviewed the chart notes and spoke with the patient at the bedside. The patient is to be discharged to home with IV abx (ertapenem 1GM IV Q24) until 09/01/2023. Midline placed on 08/19/2023. Faxed clinicals to [facility] and spoke
with Valerie ( ) [facility] Liaison. CM spoke with Clive who assures CM that he will be able to assist the patient with administering the IV abx. CM spoke with Malu [facility] Home Care Site Planner. They are able to do midline
dressing changes once weekly. Patient is current on their service for wound care. CM continues to be available to patient/family and is monitoring medical plan for needs at discharge.
Plan: Home with IV abx until 09/01/2023. Father Clive will transport the patient home. [facility] for wound care and Midline care.
[2023-08-22 11:44] LABS: Glucose - Point of Care 162 mg/dl (70-99)
[2023-08-22] MEDS: INVANZ 60 MG IV (12:21)
[2023-08-22] MEDS: DILAUDID 8 MG PO (12:49)
--- NOTE | 2023-08-22 14:45 | W.DS.TRANS ---
DC Summary - Side Hemmer
-
Discharge Instructions:
Discharge Diagnosis/Procedures UTI, hepatic encephalopathy, acute kidney injury
Diet Diabetic, Carb Controlled
Activity With assistance
Driving Restrictions No driving
Bathing Restrictions None
Other Services VN
Instructions:
Stand-Alone Forms:
Changes to Home Medications: No
Discharge Medications:
DC Medications w/original date entered in [employer]
aspirin 81 mg tablet,delayed release 81 mg PO DAILY Blood clot prevention/tx 09/25/19
atorvastatin 40 mg tablet 40 mg PO HS High cholesterol 09/25/19
calcitriol 0.25 mcg capsule 0.25 mcg PO DAILY Kidney Disease 09/25/19
insulin aspart U-100 100 unit/mL (3 mL) subcutaneous pen (Novolog FlexPen U-100 Insulin aspart) 22 unit SC AC Diabetes 04/21/22
insulin degludec 200 unit/mL (3 mL) subcutaneous pen (Tresiba FlexTouch U-200 insulin) 68 unit SC DAILY Diabetes 09/20/22
magnesium oxide 500 mg PO DAILY Supplement 05/05/23
tamsulosin 0.4 mg capsule 0.4 mg PO DAILY prostate 05/05/23
trazodone 50 mg tablet 50 mg PO HS PRN SLEEP 07/21/23
bumetanide 1 mg tablet 1 mg PO BID Fluid Retention/Swelling 07/22/23
teadiqux-ad-eaomh 300 mcg-K 60 mcg-lycop 600 mcg-lutein 300 mcg tablet (Centrum Silver Men) 1 tab PO DAILY Supplement 07/22/23
albuterol sulfate 90 mcg/actuation aerosol inhaler 2 puff inhalation R Q4HPRN PRN sob 08/18/23
ascorbic acid (vitamin C) 1,000 mg tablet 500 mg PO DAILY Supplement 08/18/23
lactulose 20 gram/30 mL oral solution 20 g PO TID Liver Issues 08/18/23
mecobalamin (vitamin B12) 2,500 mcg chewable tablet 2,500 mcg PO DAILY Supplement 08/18/23
miconazole nitrate 2 % topical powder 1 applic topical BID PRN apply to abd/groin folds/scrotal skin 08/18/23
naloxone 4 mg/actuation nasal spray (Narcan) 1 spray intranasal DAILYPRN PRN opioid overdose 08/18/23
rifaximin 550 mg tablet (Xifaxan) 550 mg PO BID Liver Issues 08/18/23
sotalol 80 mg tablet 80 mg PO BID Arrhythmia 08/18/23
Ertapenem [Invanz] 1,000 mg 120 mls/hr IV Q24H 08/22/23
levothyroxine 137 mcg tablet 137 mcg PO DAILY AT 0700 #0 tabs 08/22/23
oxycodone 10 mg tablet 10 mg PO Q4H PRN severe pain #12 tabs 08/22/23
potassium chloride 20 mEq tablet,extended release 40 meq PO BID Electrolyte Repletion #12 tabs 08/22/23
Home Medication Changes
Pending Results: No
--- NOTE | 2023-08-22 14:59 | PTCARENOTE ---
Pt discharged per order. Pt left with father tonya(friend) via his own wheelchair. Midline intact, patent and dry. no s/s of distress noted.
--- NOTE | 2023-08-23 11:02 | PN.CDI ---
CDI
- -
CDI:
Physician Documentation Request
Admit Date: 08/18/23 14:04
Dear Doctor Deepika,
The diagnosis of sepsis was documented on 08/18 as part of the ED 'discharge problem' but is not consistently noted in subsequent documentation.
T max 08/18 100.9
Presenting heart rate 127
08/18 respiratory rate 14-18
WBC 08/18 4.3 L
Please clarify the following:
____ - Sepsis was present on admission
____ - Sepsis was ruled out
____ - Other
�Sepsis
-Systemic manifestations of infection, with 2 or more SIRS criteria which include:
-Fever > 100.4��F or hypothermia < 96.8��F
-Leukocytosis WBC > 12,000 or leukopenia, WBC < 4,000, or > 10% bands
-Tachycardia- > 90 beats/minute
-Tachypnea- RR > 20 breaths/minute or PaCO2 < 32mmHg
Source: Merck Manual 2013
Use of terms such as suspected, likely, concern for, or probable (associated with a specific diagnosis that is being evaluated, monitored, or treated as if it exists) are acceptable and can be coded in the inpatient setting, when documented at the
time of discharge.
Thank you,
Luisa Kirkland RN, BSN
CDI Specialist
tiger text
Please use your independent medical judgment in providing your response.
== END 2023-08-22 14:59 | disposition home health service (06) | DRG 872 ==
LOC: 2 NORTH 14:04
PROVIDERS: Physician Assistant; ADMITTING PHYSICIAN Internal Medicine; ATTENDING PHYSICIAN Hospitalist; CONSULT PHYSICIAN Internal Medicine Gastroenterology; CONSULT PHYSICIAN Internal Medicine Infectious Disease; EMERGENCY PHYSICIAN Emergency Medicine; OTHER PHYSICIAN Nurse Practitioner Acute Care
DX: A41.9 Sepsis, unspecified organism (principal); N39.0 Urinary tract infection, site not specified; Z16.12 Extended spectrum beta lactamase (ESBL) resistance; N17.9 Acute kidney failure, unspecified; I13.0 Hypertensive heart and chronic kidney disease with heart failure and stage 1 through stage 4 chronic kidney disease, or unspecified chronic kidney disease; I50.32 Chronic diastolic (congestive) heart failure; Z16.24 Resistance to multiple antibiotics; F11.20 Opioid dependence, uncomplicated; I48.92 Unspecified atrial flutter; I47.10 Supraventricular tachycardia, unspecified; K76.82 Hepatic encephalopathy; N18.31 Chronic kidney disease, stage 3a; E11.22 Type 2 diabetes mellitus with diabetic chronic kidney disease; E87.6 Hypokalemia; B96.20 Unspecified Escherichia coli [E. coli] as the cause of diseases classified elsewhere; G89.4 Chronic pain syndrome; E66.01 Morbid (severe) obesity due to excess calories; E11.65 Type 2 diabetes mellitus with hyperglycemia; Z89.512 Acquired absence of left leg below knee; Z68.35 Body mass index [BMI] 35.0-35.9, adult; Z79.82 Long term (current) use of aspirin; Z79.4 Long term (current) use of insulin
CPT/HCPCS: 70450; 71045; 74176; 76770; 80048; 80053; 81003; 81015; 82140; 82570; 82607; 82728; 82962; 83540; 83550; 83605; 83735; 83880; 84300; 84443; 84484; 85025; 85027; 85610; 85730; 87040; 87077; 87086; 87186; 87502; 87811; 92610; 93005; 96361; 96374; 99285; J1335; J2185

== ENCOUNTER 2023-09-02 09:48 | Emergency (ER) | payer OTHER, SELFPAY ==
[2023-09-02] VITALS (7 sets, daily range): BP systolic 101–139; BP diastolic 57–112; BMI 32.7
--- NOTE | 2023-09-02 09:53 | ED.GENMED ---
History of Present Illness
General
Chief Complaint: Change in Mental Status
Source: patient and ambulance crew
Exam Limitations: none
Time Seen by Provider: 09/02/23 09:51
Nursing documentation reviewed up to this point in time: agreed with
History of Present Illness
History of Present Illness:
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 Home care nurse arrived for visit, patient usually greets her at the door but today
did not. Roommates explained that he has been very weak, poor appetite, somnolent the past 2 days. Pt denies headache or recent fall. Denies n/v/d/c. Feels weak, no appetite
Past History
Past History
ED Past Medical History: Arrthythmia, CHF, HTN, Hypercholesterolemia, IDDM and Other (Kidney disease, cirrhosis)
ED Past Surgical History: Orthopedic (Left BKA)
Social History
Tobacco: Non-smoker
Alcohol: None
Drug: None
Personal: Single
Living: shelter
Employment: Employed ([employer]rew [employer])
Family History
Family History: Other (Left AKA)
Review of Systems
Review of Systems
Allergies reviewed?: Yes
All Other Systems: ROS reviewed and negative except as documented in HPI and ROS
Constitutional: Reports fatigue; Denies fever
Respiratory: Denies trouble breathing
Cardiac: Denies chest pain or syncope
ABD/GI: Reports anorexia; Denies abdominal pain, nausea, vomiting or diarrhea
: Denies dysuria, flank pain or difficulty voiding
Musculoskeletal: Reports other (Left BKA); Denies edema
Skin: Reports other (open wound left BKA stump, followed by home wound care, healing well, on IV antibiotics via PICC line)
Neurological: Reports weakness; Denies dizzy, headache or numbness
Phy Exam
Physical Exam
Physical Exam:
GENERAL: No acute distress. Awake &Ox3. Drifts off to sleep frequently during evaluation
CONSTITUTIONAL: Afebrile.
EYES: PERRL, conjunctivae normal
ENMT: moist mucus membranes, Pharynx nl
RESPIRATORY: Regular respirations, nonlabored, lungs clear.
CARDIOVASCULAR: Regular rate and rhythm, no murmurs, no rubs.
GI: Soft, nontender, normal BS
MUSCULOSKELETAL: Left BKA moves with ease. Well perfused.
SKIN: Warm, dry, pink. Left BKA stump with open wound, no drainage, no surrounding erythema or swelling. appears to be healing well.
PSYCH: Depressed mood and affect. Well kept, interactive and appropriate
NEUROLOGIC: Awake but somnolent, oriented and appropriate. No focal neurological deficits. Speech a little slurred as he drifts off to sleep No focal neuro deficits.
Course
Orders/Labs/Results
Orders:
Orders
09/02/23 09:53
0.9% Sodium Chloride 1000 ml [Nss] 1,000 ml IV BOLUS
09/02/23 09:54
CR Chest - 2 Views Urgent
Comment:
Reason For Exam: change in mental status and PICC confirmation
09/02/23 10:18
Complete Blood Count/With Diff Urgent
Comprehensive Metabolic Panel Urgent
TSH Urgent
Comment: ADD ON
Urinalysis Reflex To Culture Urgent
Date Specimen was Collected: 09/02/23
Time Specimen was Collected: 10:15
09/02/23 10:49
EKG [Electrocardiogram (*1)] Urgent
Reason for Study: Vertigo / Dizzy
EKG- Treatment ONCE
09/02/23 11:03
Add On- LAB Urgent
Tests Added?: TSH
CT Head W/o Iv Contrast Urgent
Comment:
Reason For Exam: Change in mental state
Abnormal Lab Results
09/02/23
10:18
RBC 3.62 L 10^6/uL
(4.70-6.10)
Hgb 10.7 L g/dL
(13.0-18.0)
Hct 31.4 L %
(39.0-52.0)
Plt Count 93 L 10^3/uL
(130-400)
MPV 11.3 H fL
(7.4-10.4)
Absolute Lymphs (auto) 1.0 L 10^3/uL
(1.2-3.4)
BUN 63 H mg/dl
(9-20)
Creatinine 1.4 H mg/dL
(0.7-1.3)
Glucose 246 H mg/dl
(70-99)
Total Bilirubin 1.4 H mg/dl
(0.2-1.3)
Alkaline Phosphatase 247 H U/L
(38-126)
09/02/23 10:18
09/02/23 10:18
Vital Signs
Initial and Last Documented VS:
Initial Vital Signs
Temp Pulse Resp BP Pulse Ox
97.6 F 60 14 137/112 94
09/02/23 09:56 09/02/23 09:56 09/02/23 09:56 09/02/23 09:56 09/02/23 09:56
Last Documented Vital Signs
Temp Pulse Resp BP Pulse Ox
98.2 F 60 18 128/60 99
09/02/23 13:07 09/02/23 13:00 09/02/23 13:00 09/02/23 12:38 09/02/23 12:45
MDM/Problems Addressed
Differential Diagnosis Includes:
UTI, CVA, dehydration
MDM/Problems Addressed:
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 Home care nurse arrived for visit, patient usually greets her at the door but today
did not. Roommates explained that he has been very weak, poor appetite, somnolent the past 2 days. Pt denies headache or recent fall. Denies n/v/d/c. Feels weak, no appetite
09/02/2023 1049 AM
CBC with no clinically significant abnormality, hemoglobin is baseline, platelets at his baseline
CMP:BUN/creat 63/1.4, Glucose 247, stable elevation of alk phosphatase
RN reports bladder scan reveals over 500 mL, hx urine retention, straight cathed UA negative
Chest x-ray:
Spoke with Fr. Ibarra who states pt for past two days has been less alert, 'talking that didn't make sense,' didn't know how to use his fork or knife, said he had plenty of lemon for his tea but he had neither.
09/02/[address] radiology report read:IMPRESSION:
No acute intracranial abnormalities.
Findings again seen compatible with diffuse cortical atrophy with nonspecific white matter changes as described above.
09/02/2023 1348 PM
Sudden improvement of status. Pt alert, sitting up, requesting food and tea.
Pt stable for DC back to [facility]
Unclear etiology of symptoms, but they seem completely resolved.
*Critical Care Note
Total Time (30-74mins, 75-104mins- exclusive of procedures): Not Applicable
ED Attending Note
-
Portions of this chart may have been created with voice recognition software.� Occasional wrong word or��sound alike� substitutions may have occurred due to the inherent limitations of voice recognition software.
Discharge Plan
Departure
Patient Disposition: Home (Routine Discharge)
Date of Disposition: 09/02/23
Time of Disposition: 12:18
Patient with high blood pressure during this ER visit?: Yes
Condition: Fair
Discharge Problem:
Change in mental state, Generalized weakness, Acute dehydration
Instructions: Generalized Weakness, Dehydration, Adult ED, Fatigue ED
Prescriptions:
No Action
atorvastatin 40 MG tablet
40 mg PO HS
aspirin 81 MG tablet,delayed release (DR/EC)
81 mg PO DAILY
calcitriol 0.25 MCG capsule
0.25 mcg PO DAILY
insulin aspart U-100 [Novolog FlexPen U-100 Insulin] 100 unit/mL (3 mL) insulin pen
22 unit SC AC
insulin degludec [Tresiba FlexTouch U-200] 200 unit/mL (3 mL) insulin pen
68 unit SC DAILY
magnesium oxide 500 mg Tablet
500 mg PO DAILY
tamsulosin 0.4 mg capsule
0.4 mg PO DAILY
trazodone 50 mg Tablet
50 mg PO HS PRN (Reason: SLEEP)
bumetanide 1 mg Tablet
1 mg PO BID
Centrum Silver Men [id number] mcg Tablet
1 tab PO DAILY
albuterol sulfate 90 mcg/actuation Hfa Aerosol Inhaler
2 puff INHALATION R Q4HPRN PRN (Reason: sob)
naloxone [Narcan] 4 mg/actuation [place],Non-Aerosol
1 spray INTRANASAL DAILYPRN PRN (Reason: opioid overdose)
ascorbic acid (vitamin C) 1,000 mg Tablet
500 mg PO DAILY
Xifaxan 550 mg tablet
550 mg PO BID
Patient Comments:
08/18/2023, [facility] states 'twice a week' but pharmacy fill is BID.
sotalol 80 mg tablet
80 mg PO BID
lactulose 20 gram/30 mL solution
20 g PO TID
Ertapenem [Invanz] 1000 MG
0.9% Sodium Chloride [Nss] 50 ML
120 mls/hr IV Q24H
Ordered By: Royal Poe DO
Last Taken: Unknown
cyanocobalamin (vitamin B-12) 1,000 mcg Tablet
1,000 mcg PO QPM
gabapentin 300 mg capsule
300 mg PO DAILY@1999
cholecalciferol (vitamin D3) [Vitamin D3] 125 mcg (5,000 unit) Tablet
125 mcg PO DAILY
levothyroxine 137 mcg tablet
137 mcg PO DAILY@0700
oxycodone 10 mg tablet
10 mg PO Q4H PRN (Reason: moderate pain)
Patient Comments:
09/02/2023: last filled 08/10/23, 150 tabs for 30 days from [facility][id number]
potassium chloride 20 mEq tablet extended release
20 meq PO BID
Referrals:
Your, Primary doctor [Other] - Follow up in 2-3 days
UNKNOWN,NO INTERVIEW [Family Provider] -
Activity Restrictions/Additional Instructions:
As we discussed your kidney function is a little abnormal. It should get better in the next few days as you were a little dehydrated and we gave you IV fluids.
Drink at least sic 8 oz glasses of fluid daily to stay hydrated
See your family doctor Tuesday or Tuesday to have your blood work (kidney functions) rechecked.
Interventions
Interventions:
*Risk Screen - Suicide Last Done: 09/02/23 09:56
*General Assessment Last Done: 09/02/23 09:56
*Neglect/Abuse Screening Last Done: 09/02/23 09:56
*ED COVID-19 Vaccine History Last Done: 09/02/23 09:56
ED- Pulmonary Assessment Last Done: 09/02/23 11:12
ED- Neurological Assessment Last Done: 09/02/23 11:12
ED Swallowing Screen Last Done: 09/02/23 11:27
[2023-09-02 10:29] LABS: Urine Albumin Negative (Neg - Trace); Urine Bilirubin Negative (Negative); Urine Character Clear (Clear); Urine Color Yellow; Urine Glucose Negative (Negative); Urine Ketone Negative (Negative); Urine Leukocyte Negative (Negative); Urine Nitrite Negative (Negative); Urine Occult Blood Negative (Negative); Urine Urobilinogen Negative (Neg - 1+)
[2023-09-02 10:30] LABS: % Basophils 0.8 % (0-2); % Eosinophils 4.4 % (0-6); % Immature Granulocytes 0.4 % (0-0.5); % Lymphocytes 21.5 % (20.5-51.1); % Monocytes 6.1 % (1.7-9.3); % Neutrophils 66.8 % (42.2-75.2); Absolute Eosinophils 0.2 10^3/uL (0-0.7); Absolute Monocytes 0.3 10^3/uL (0.1-0.6); Absolute Neutrophils 3.2 10^3/uL (1.4-6.5); Hematocrit 31.4 % (39.0-52.0); Hemoglobin 10.7 g/dL (13.0-18.0); Mean Corp Hgb Conc. 34.1 g/dL (33.0-37.0); Mean Corpuscular Hgb 29.6 pg (27.0-31.0); Mean Corpuscular Volume 86.7 fL (80.0-94.0); Mean Platelet Volume 11.3 fL (7.4-10.4); Nucleated Red Blood Cells % 0 % (-); Platelet Count 93 10^3/uL (130-400); Red Blood Cell Count 3.62 10^6/uL (4.70-6.10); Red Cell Dist. Width 14.2 % (11.5-14.5); White Blood Cell Count 4.8 10^3/uL (4.8-10.8)
[2023-09-02 10:42] LABS: ALT (SGPT) 44 U/L (0-50); AST (SGOT) 42 U/L (17-59); Albumin 3.5 g/dl (3.5-5.0); Alkaline Phosphatase 247 U/L (38-126); Blood Urea Nitrogen 63 mg/dl (9-20); Calcium 9.7 mg/dl (8.4-10.2); Carbon Dioxide 28 mmol/L (22-30); Chloride 103 mmol/L (98-107); Estimated Creatinine Clearance 62 ml/min; Glucose 246 mg/dl (70-99); Potassium 3.7 mmol/L (3.5-5.1); Sodium 142 mmol/L (135-145); Total Bilirubin 1.4 mg/dl (0.2-1.3); Total Protein 6.7 g/dl (6.3-8.2); eGFR 56.83
--- NOTE | 2023-09-02 10:49 | PHANOTE ---
Med Rec Note:
Unable to interview pt due to change of mental status. Home med list found in pt's belongings. Home med list compiled from Home med list, Dr Nelson and Discharge from on 08/22/23.
[2023-09-02 12:38] LABS: TSH 1.68 uIU/ml (0.47-4.68)
== END 2023-09-02 16:11 | disposition home or self-care (01) ==
LOC: EMR 09:48
PROVIDERS: Registered Nurse; EMERGENCY PHYSICIAN Emergency Medicine
DX: E86.0 Dehydration (principal); R41.82 Altered mental status, unspecified; R53.1 Weakness; R33.9 Retention of urine, unspecified; E11.40 Type 2 diabetes mellitus with diabetic neuropathy, unspecified; G31.9 Degenerative disease of nervous system, unspecified; I11.0 Hypertensive heart disease with heart failure; I50.9 Heart failure, unspecified; E78.00 Pure hypercholesterolemia, unspecified; E03.9 Hypothyroidism, unspecified; K74.60 Unspecified cirrhosis of liver; Z95.0 Presence of cardiac pacemaker; Z89.512 Acquired absence of left leg below knee; Z79.4 Long term (current) use of insulin; Z79.82 Long term (current) use of aspirin
CPT/HCPCS: 99285; 51701; 51798; 70450; 71046; 80053; 81003; 84443; 85025; 93005

== ENCOUNTER 2024-02-20 17:46 | Inpatient (IN) | payer OTHER, SELFPAY ==
[2024-02-20 14:35] VITALS: BP 150/73
[2024-02-20 14:51] LABS: % Basophils 0.4 % (0-2); % Eosinophils 3.8 % (0-6); % Immature Granulocytes 0.6 % (0-0.5); % Lymphocytes 14.3 % (20.5-51.1); % Monocytes 5.5 % (1.7-9.3); % Neutrophils 75.4 % (42.2-75.2); Absolute Eosinophils 0.2 10^3/uL (0-0.7); Absolute Lymphocytes 0.8 10^3/uL (1.2-3.4); Absolute Monocytes 0.3 10^3/uL (0.1-0.6); Hemoglobin 9.8 g/dL (13.0-18.0); Mean Corp Hgb Conc. 33.8 g/dL (33.0-37.0); Mean Corpuscular Hgb 30.8 pg (27.0-31.0); Mean Corpuscular Volume 91.2 fL (80.0-94.0); Mean Platelet Volume 10.2 fL (7.4-10.4); Nucleated Red Blood Cells % 0 % (-); Platelet Count 88 10^3/uL (130-400); Red Blood Cell Count 3.18 10^6/uL (4.70-6.10); White Blood Cell Count 5.3 10^3/uL (4.8-10.8)
[2024-02-20 15:03] LABS: ALT (SGPT) 21 U/L (0-50); AST (SGOT) 30 U/L (17-59); Albumin 3.6 g/dl (3.5-5.0); Alkaline Phosphatase 149 U/L (38-126); Blood Urea Nitrogen 30 mg/dl (9-20); Calcium 8.8 mg/dl (8.4-10.2); Carbon Dioxide 25 mmol/L (22-30); Chloride 103 mmol/L (98-107); Glucose 197 mg/dl (70-99); Potassium 4.4 mmol/L (3.5-5.1); Sodium 135 mmol/L (135-145); Total Protein 6.7 g/dl (6.3-8.2); eGFR > 60.00
[2024-02-20 15:11] LABS: NT-proBNP 1370 pg/ml; Troponin I < 0.012 ng/ml
[2024-02-20 15:13] VITALS: BP 142/62
--- NOTE | 2024-02-20 15:44 | ED.GENMED ---
History of Present Illness
General
Chief Complaint: Breathing Problem
Time Seen by Provider: 02/20/24 14:21
History of Present Illness
History of Present Illness:
63-year-old male with history of CHF, diabetes, hypertension presenting to the emergency department for shortness of breath. Patient reports symptoms for the last 3 to 4 days, worsened last night. Reports that he has been out of his Bumex for 4
days. He believes that this could be contributing to his symptoms. He denies associated chest pain. He denies cough or fever. He denies any abdominal pain, however does feel that it has been more distended secondary to fluid retention. He
denies additional acute medical complaints
Past History
Past History
ED Past Medical History: Arrthythmia, CHF, HTN, Hypercholesterolemia, IDDM and Other (Kidney disease, cirrhosis)
ED Past Surgical History: Orthopedic (Left BKA)
Social History
Tobacco: Non-smoker
Alcohol: None
Drug: None
Personal: Single
Living: long-term
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
Family History
Family History: Other (Left AKA)
Phy Exam
Physical Exam
Physical Exam:
General: Well-appearing, no clinical signs of dehydration, nontoxic and in no acute distress
HEENT: protecting airway
Neck: appears supple
CV: Normal heart rate, regular rhythm, no evidence of cyanosis
Resp: No accessory muscle use, no increased work of breathing, lungs clear to auscultation bilaterally
Abd: Soft and non-distended, no tenderness to palpation
Extremities: No deformities, generalized swelling, left BKA. Slight clear oozing from prior incision from BKA. No erythema or warmth
Neuro: alert, no focal neurologic deficit
: deferred
Rectal: deferred
Psych: Normal affect
Skin: Intact
Scores
Heart Failure Risk
Heart Failure Risk Score: Yes
History of Stroke or TIA: No
History of intubation for respiratory distress: No
Heart rate on ED arrival >/= 110: No
SaO2 <90% on arrival on room air: No
HR >/=110 during 3min walk test (or too ill to perform test): Yes
ECG has acute ischemic changes: No
Urea >/=12mmol/L (BUN 33.6mg/dL): No
Serum CO2>/=35mmol/L: No
Troponin I or T elevated to MN Level (0.4mg/dL): No
NT-proBNP >/=5,000ng/L (5,000pg/ml): No
HF Risk Score: 2
Admission Status: MEDIUM RISK 9.2% Consider observation or discharge to home with homecare & f/u visit to PCP/[facility], or SNF for treatment
Course
Orders/Labs/Results
Orders:
Orders
02/20/24 14:26
EKG [Electrocardiogram (*1)] Urgent
Reason for Study: Shortness of Breath
EKG- Treatment ONCE
02/20/24 14:35
IV Insert/Care/Rem.- Treatment PRN
02/20/24 14:37
BNP [NT-proBNP] Urgent
Complete Blood Count/With Diff Urgent
Comprehensive Metabolic Panel Urgent
TSH Urgent
Comment: ADD ON
Troponin I Urgent
02/20/24 14:39
CR Chest - 2 Views Urgent
Comment:
Reason For Exam: chf
02/20/24 16:23
Furosemide [Lasix] 40 mg IV ONCE ONE
02/20/24 17:03
Admit/Transfer Patient As Directed
Co-Sign Provider:
Level of Care: Inpatient admission
Assign to:: Telemetry
Physician / Group: Chad Lehman
Diagnosis: AoC HFpEF
Reason for Telemetry: Arrhythmia
Date to Stop Telemetry: 02/23/24
Time to Stop Telemetry: 11:00
Reason for Hospitalization: IV diuretics, optimize GDMT
Expected length of stay greater than two midnights?: Yes
ELOS- Estimated Length of Stay in days: 3
I certify the patient meets the requirements for IP care: Yes
PRN Pain Medication Management As Directed
May give lesser potent ordered pain med per pt: Yes
preference::
Protocol:: Medication orders for pain may be administered in a
manner that supports deferring to patient preference
when the pt is:
- Requesting an ordered lesser potent pain medication.
Least to most potent pain medications are defined
as: acetaminophen < NSAID < tramadol < opioids
(morphine, oxycodone, hydromorphone).
- Requesting a lesser dose of the same medication IF
ORDERED.
- Requesting a less intrusive route of administration
if both routes are prescribed by the provider (PO <
IV).
02/20/24 17:05
Code Status As Directed
Resuscitation Status: Full Code
02/20/24 17:11
Accucheck [Bedside Glucose Monitoring] As Directed
Frequency: AC&HS
02/20/24 17:33
Bumetanide [Bumex] 1 mg IV NOW STA
02/20/24 18:00
Insulin Aspart Corrective Mod [Novolog Flexpen-Moderate Resistance] See Protocol SC AC
02/20/24 18:20
Cyanocobalamin [Vitamin B-12] 1,000 mcg PO QPM
Enoxaparin Sodium [Lovenox] 40 mg SC QPM
Oxycodone [Roxicodone] 10 mg PO Q4HPRN PRN
Trazodone [Desyrel] 50 mg PO HSPRN PRN
02/20/24 18:20
Activity As Directed
Activity Level: Out of Bed-Early Mobility
I&O [Intake/ Output] As Directed
Frequency: Per unit guidelines
DX Deep Vein Thrombosis Video Routine
02/20/24 20:00
Bumetanide [Bumex] 1 mg IV BID
Gabapentin [Neurontin] 300 mg PO BID
Metoprolol Xl [Toprol Xl] 25 mg PO BID
Rifaximin [Xifaxan] 550 mg PO BID
02/20/24 22:00
Atorvastatin [Lipitor] 40 mg PO HS
Tamsulosin [Flomax] 0.4 mg PO HS
02/21/24 Breakfast
Regular
At Your Request: Limited Participation
Does patient need a safe tray?: No
Comment: <4 g dietary sodium, no added salt
Levothyroxine [Synthroid] 137 mcg PO DAILY@0600
02/21/24 07:30
Insulin Aspart Pen [Novolog Flexpen] 18 units SC AC
02/21/24 08:00
Aspirin Low Dose EC [Aspir Low (Enteric Coated)] 81 mg PO DAILY
Bumetanide [Bumex] 1 mg IV BID AT 0800,1600
Calcitriol [Rocaltrol] 0.25 mcg PO DAILY
Magnesium Oxide 500 mg PO DAILY
Metolazone [Zaroxolyn] 5 mg PO MoTu@0800
Multivitamin [Theragran] 1 tablet PO DAILY
Potassium Chloride [KCl] 20 meq PO DAILY
US Abdomen Limited Routine
Reason For Exam: Assess for ascites
02/23/24 11:00
DC Protocol for Telemetry ONCE
Abnormal Lab Results
02/20/24
14:37
RBC 3.18 L 10^6/uL
(4.70-6.10)
Hgb 9.8 L g/dL
(13.0-18.0)
Hct 29.0 L %
(39.0-52.0)
RDW 15.0 H %
(11.5-14.5)
Plt Count 88 L 10^3/uL
(130-400)
Absolute Lymphs (auto) 0.8 L 10^3/uL
(1.2-3.4)
Immature Gran % 0.6 H %
(0-0.5)
Neutrophils % 75.4 H %
(42.2-75.2)
Lymphocytes % 14.3 L %
(20.5-51.1)
BUN 30 H mg/dl
(9-20)
Glucose 197 H mg/dl
(70-99)
Alkaline Phosphatase 149 H U/L
(38-126)
02/20/24 14:37
02/20/24 14:37
Vital Signs
Initial and Last Documented VS:
Initial Vital Signs
Pulse Resp BP Pulse Ox
60 17 150/73 96
02/20/24 14:35 02/20/24 14:35 02/20/24 14:35 02/20/24 14:35
Last Documented Vital Signs
Temp Pulse Resp BP Pulse Ox
98.9 F 65 19 131/54 93
02/21/24 11:26 02/21/24 11:26 02/21/24 11:26 02/21/24 11:26 02/21/24 11:26
MDM/Problems Addressed
MDM/Problems Addressed:
63-year-old male with history of CHF on Bumex presenting for shortness of breath. Vital signs on arrival are normal.
On exam, patient is well-appearing, no acute respiratory distress. Benign cardiac and pulmonary exam. Patient notes that he has been out of his Bumex for the past several days, which align with symptom onset. Suspect volume overloaded state.
Lower suspicion for severe CHF exacerbation. Lungs clear to auscultation, no increased respiratory effort or crackles on exam. No increased oxygen requirements. Patient afebrile, denies cough. No concern for infectious pathology. EKG obtained,
without significant change from prior. Plan for screening laboratory analysis and chest x-ray imaging.
16:20 -patient's labs are relatively unremarkable, elevated BNP, consistent with prior. Chest x-ray however does show some pulmonary vascular congestion, consistent with CHF. Patient reports he does not feel that he can be managed at home given
the swelling to his lower extremities, cannot get around and transfer to his wheelchair given increased weight. For this reason we will admit for IV diuresis
*EKG
Interpreted by ED Provider?: Yes
EKG Intrepretation Date: 02/20/24
EKG Intrepretation Time: 15:48
Interpretation: normal
Comparison EKG: no changes (09/02/23)
Heart Rate: 61
Rate: normal
Rhythm: sinus and other (AV paced)
E[place]: normal axis
Interval: normal interval
QRS Pattern: normal QRS
Ischemia: no ischemia
*Critical Care Note
Total Time (30-74mins, 75-104mins- exclusive of procedures): Not Applicable
ED Attending Note
-
Portions of this chart may have been created with voice recognition software.� Occasional wrong word or��sound alike� substitutions may have occurred due to the inherent limitations of voice recognition software.
Discharge Plan
Departure
Patient Disposition: Admit
Date of Disposition: 02/20/24
Time of Disposition: 16:27
Presentation/result/management discussed w/ accepting MD/DO: Hospitalist
Patient with high blood pressure during this ER visit?: No
Condition: Fair
Discharge Problem:
Acute exacerbation of CHF (congestive heart failure), Swelling of both lower extremities
Interventions
Interventions:
*Risk Screen - Suicide Last Done: 02/20/24 19:45
*General Assessment Last Done: 02/20/24 14:34
*Neglect/Abuse Screening Last Done: 02/20/24 14:34
*ED COVID-19 Vaccine History Last Done: 02/20/24 19:45
*Nursing Disposition Last Done: 02/20/24 18:00
ED- Cardiac Assessment Last Done: 02/20/24 14:34
ED- Pulmonary Assessment Last Done: 02/20/24 14:34
Discharge Date and Time
Discharge Date/Time: 02/20/24 18:01
[2024-02-20] MEDS: LASIX 40 MG IV (16:38)
--- NOTE | 2024-02-20 16:39 | HPS.HSE ---
Addendum entered and electronically signed by Chad Lehman DO 02/20/24 21:15:
#Thrombocytopenia
-2/2 cirrhosis, portal hypertension
-No signs of bleeding or thrombosis
-Will trend CBC for now
Original Note:
Family Physician
-
Family Physician: Megan Scott DO
Chief Complaint
-
Dyspnea, ran out of Bumex 4 days ago
History of Present Illness
63-year-old male with HFpEF (LVEF 55%, LA enlargement on TTE 04/2023), alcoholic cirrhosis (C/B hepatic encephalopathy), PAD (s/p left BKA with chronic wound VAC), CKD 3A, hypertension, T2DM, HLD, hypothyroidism, AoCD, BPH, chronic pain syndrome
with opiate dependence, H/O SVT/AFL (not on anticoagulation) that presented to the emergency department today with a complaint of shortness of breath.
He reports that his symptoms started about 3 to 4 days ago and have progressively worsened to the point of last night with a crescendoed. He reports that 4 days ago he ran out of his Bumex and has not been able to have it refilled. States he
thinks this is contributing to his symptoms. He denies any chest pain, fever, cough or wheezing. Denies any abdominal pain though states his belly does feel more distended and full of fluid than usual.
Upon arrival to the ED he was afebrile, hemodynamically stable, and on room air with SpO2 94% ED labs showed BUN 30, ALP 149, hemoglobin 9.8 with MCV 91.2, platelet count 88 but were otherwise unremarkable. BNP was 1370. Troponin was negative x 1
on arrival, ECG without any evidence of acute ST deviation or STEMI equivalents. Chest x-ray showed increased pulmonary vascular prominence consistent with pulmonary edema.
Medical History
Past Medical History
Past Medical History: Reports Arrhythmia (Unspecified SVT versus AFL), CHF, HTN, Hypercholesterolemia, Hypothyroidism and NIDDM
Past Surgical History: Reports Other (Left BKA)
Social History
Tobacco: Non-smoker
Alcohol: Former
Drug: None
Family History
Family History: Not pertinent
Allergies / Home Medications
Allergies reflects when Allergies were last updated in [employer].
Home Medications with original date entered in [employer]
Allergy/Medication List:
NKDA
Review of Systems
-
History Source: Patient
A 12 point ROS was completed and negative except as noted: Yes
Constitutional: Reports No Symptoms
Respiratory: Reports Trouble Breathing
Cardiac: Reports No Symptoms
Abdomen/GI: Reports Other (Bloating)
: Reports No Symptoms
Musculoskeletal: Reports No Symptoms
Skin: Reports No Symptoms
Neurological: Reports No Symptoms
Endocrine: Reports No Symptoms
Hematologic/Lymphatic: Reports No Symptoms
Psych: Reports No Symptoms
Physical Exam
Vital Signs
Vital Signs
Temp Pulse Resp BP Pulse Ox
98.1 F 60 15 142/62 94
02/20/24 14:37 02/20/24 16:15 02/20/24 16:15 02/20/24 15:13 02/20/24 16:26
Physical Exam
General: No Apparent Distress, Comfortable and Conversant
HEENT: NormoCephalic, Anicteric, Moist mucous membranes and Atraumatic
Respiratory: Crackles, Non Labored Respirations and Clear to Percussion; No Wheezes, Rhonchi or Accessory Resp Muscle Use
Cardiac: S1/S2, Regular Rhythm, Peripheral Edema and JVD; No Murmur, Rub or Gallop
GI: Soft, Non Tender, Normal Bowel Sounds and Distended (Mildly distended)
Musculoskeletal: No Clubbing, No Cyanosis and Other (3+ lower extremity edema bilaterally; left-sided BKA)
Skin: Warm, Dry and Other (Chronic stasis dermatological changes); No Rash or Jaundice
Neuro: AO x 3, Nonfocal/grossly intact and Cranial Nerves Intact
Laboratory Results
-
02/20/24 14:37
02/20/24 14:37
Laboratory Results
Total Bilirubin 1.0 mg/dl (0.2-1.3) 02/20/24 14:37
AST 30 U/L (17-59) 02/20/24 14:37
ALT 21 U/L (0-50) 02/20/24 14:37
Alkaline Phosphatase 149 U/L (38-126) H 02/20/24 14:37
Troponin I < 0.012 ng/ml 02/20/24 14:37
Data Reviewed
-
Diagnostic Radiology: Image Personally Visualized and interpreted
Lab Data: Labs Reviewed by me
Impression/Plan
-
#Acute on chronic HFpEF
-Last LVEF 55 to 60% in 2022; Home meds include metoprolol succinate; no GDMT as of now
-Diuretic regimen includes Bumex twice daily and metolazone for sequential nephron blockade
-Decompensated condition in the context of missing 4 days of Bumex, unclear if cost is a burden
-BNP elevated, chest x-ray with signs of vascular prominence, hypervolemic on exam
-Given 1 dose of IV Lasix in the ED; remains HD stable and on room air comfortably
-Has not put out any urine in the ED, took metolazone today but without Bumex ineffective
-warm and wet phenotype
Plan
-Give additional IV Bumex 1 mg now, start IV Bumex 1mg BID,
-C/W metolazone rescheduled to Tuesday/Tuesday, sodium restricted diet
-monitor I's and O's, monitor weights, trend BMP for renal function
-Consider starting SGLT2i vs MRA; may be dependent on his finances
-Order complete echocardiogram to reassess LVEF
-Consider cardiology consult
#PAD s/p left BKA
#Hyperlipidemia
-Severe disease, likely related to diabetic history and other comorbidities
-Home medications include high intensity statin and aspirin
-No signs of CLI or poor perfusion right now
# Alcoholic cirrhosis
-MELD-Na 11; complicated by hepatic encephalopathy, on lactulose and Xifaxan
-Does have worsening abdomen bloating, likely fluid from heart failure not in ascites
-Consider diagnostic paracentesis if not improving abdominal distention
-Ordered ultrasound abdomen to assess degree of ascites
#CKD 3A -- ?
-Unclear etiology, likely related to diabetes and hypertensive history
-Most recently his renal function was normal, EGFR >60
-Will continue to trend BMP
#IDDM
-No recent A1c on record; C/B PAD and peripheral neuropathy
-Home medications include NovoLog and Tresiba
-Will transition to equivalent insulin scale while hospitalized
-Will add on ISS with Accu-Cheks for additional coverage
# Hypothyroidism
-Unclear etiology, no known iatrogenic causes
-Home regimen includes levothyroxine 137 mcg daily
-No obvious signs or symptoms of thyroid dysfunction no
# Anemia of chronic disease
-Secondary to the above issues; hemoglobin baseline near 10
-Hemoglobin on arrival was 9.8, no obvious signs of bleeding
-Will monitor daily CBC
#Chronic pain syndrome
-Will continue with home medication regimen for analgesia
#H/O SVT unspecified versus AFL
-No obvious signs of dysrhythmia/arrhythmia at this time
-Is not currently on any anticoagulant regimen
-Unclear if he had MCOT for ambulatory monitor
#S/p PPM
-Patient unsure medication sounds like SSS/tachybradycardia syndrome
-Scar is well-healed, no signs of dysfunction with
DVT prophylaxis: Lovenox
Diet: House, 2 g sodium restricted
CODE STATUS: Full code
Disposition: Admit to telemetry
I will be admitting Piter Agee to telemetry for decompensated heart failure with preserved ejection fraction. He is at high risk for ongoing morbidity and mortality due to worsening hypervolemia with potential compromise of his respiratory status,
worsening attributed arrhythmias. He will require ongoing IV diuretics, monitoring of his renal function and volume status I have spoken with the ED staff in regards to the patient. I have spoken with cardiology to alert them about admission with
pending consult.
[2024-02-20 17:00] VITALS: BP 152/57
[2024-02-20 18:37] VITALS: BP 146/67; BMI 46.9
[2024-02-20 18:56] LABS: Glucose - Point of Care 155 mg/dl (70-99)
[2024-02-20] MEDS: NOVOLOG FLEXPEN-MODERATE RESISTANCE 1 UNITS SC (19:35)
[2024-02-20] MEDS: VITAMIN B-12 1000 MCG PO (19:36)
[2024-02-20] MEDS: LOVENOX 40 MG SC (19:36)
[2024-02-20] MEDS: BUMEX 1 MG IV (19:41)
[2024-02-20] MEDS: TOPROL XL 25 MG PO (19:43)
[2024-02-20] MEDS: XIFAXAN 550 MG PO (19:43)
[2024-02-20] MEDS: NEURONTIN 300 MG PO (19:43)
[2024-02-20 21:39] LABS: Glucose - Point of Care 152 mg/dl (70-99)
[2024-02-20 22:08] LABS: TSH 4.34 uIU/ml (0.47-4.68)
[2024-02-20] MEDS: FLOMAX 0.4 MG PO (23:17)
[2024-02-20] MEDS: LIPITOR 40 MG PO (23:24)
[2024-02-20] MEDS: ROXICODONE 10 MG PO (23:25)
[2024-02-20 23:27] VITALS: BP 126/55
[2024-02-21] VITALS (9 sets, daily range): BP systolic 116–158; BP diastolic 49–76; PULSE 63–65; O2SAT 100; BMI 46.3
--- NOTE | 2024-02-21 06:02 | PTCARENOTE ---
~03:25 Pt reported pain, pressure, and distended bladder. Bladder scan >754. Condom cath in place draining yellow urine. Notified MAY Lowery. New orders placed. Straight cath output 900 mL. Post void bladder scan 0 mL. Pt reported relief
of pain, pressure, and distention. New condom cath placed, size 30. Plan of care ongoing.
[2024-02-21] MEDS: SYNTHROID 137 MCG PO (06:11)
[2024-02-21] MEDS: NOVOLOG FLEXPEN-MODERATE RESISTANCE 1 UNITS SC (06:22)
[2024-02-21 06:26] LABS: Glucose - Point of Care 168 mg/dl (70-99)
--- NOTE | 2024-02-21 09:29 | CARDSERVLU ---
Echocardiogram with [facility] completed after protocol screening completed. Allergies verified.
Patent IV site: ___Rt wrist_
IV site flushed with 0.9% NaCl pre and post administration.
Diluted bolus method utilized to enhance visualization of ventricular hernandez.
Total volume given: _4.0___ mL
Patient tolerated all procedures well without complications.
[2024-02-21] MEDS: NOVOLOG FLEXPEN SC ×3 (09:57→18:21)
[2024-02-21] MEDS: BUMEX 1 MG IV ×2 (09:58→17:11)
[2024-02-21] MEDS: LANTUS 0.6 UNITS SC (09:59)
[2024-02-21] MEDS: ASPIR LOW (ENTERIC COATED) 81 MG PO (10:02)
[2024-02-21] MEDS: KCL 20 MEQ PO (10:02)
[2024-02-21] MEDS: MAGNESIUM OXIDE 500 MG PO (10:02)
[2024-02-21] MEDS: NEURONTIN 300 MG PO ×2 (10:02→20:01)
[2024-02-21] MEDS: THERAGRAN 1 TABLET PO (10:03)
[2024-02-21] MEDS: TOPROL XL 25 MG PO ×2 (10:03→20:02)
[2024-02-21] MEDS: XIFAXAN 550 MG PO ×2 (10:03→20:03)
[2024-02-21] MEDS: ROCALTROL 0.25 MCG PO (10:03)
--- NOTE | 2024-02-21 10:07 | W.PN.HOSP.TC ---
Today's Communication/Plan
-
Continue IV diuretics (Bumex and metolazone for SNB)
Monitor I's/O's strictly, sodium restricted diet
Straight cath as needed based off of symptoms
Assessment / Plan
Assessment / Plan
#Acute on chronic HFpEF
-Last LVEF 55 to 60% in 2022; Home meds include metoprolol succinate; no GDMT as of now
-Diuretic regimen includes Bumex twice daily and metolazone for sequential nephron blockade
-Decompensated from missing 4 days of Bumex, says pharmacy was out of stock
-BNP elevated, chest x-ray with signs of vascular prominence, hypervolemic on exam
-Initially was not making urine in ED, has since improved with net -900 mL overnight
-Repeat TTE here shows LVEF 65%, mild LVH, mild pulmonary hypertension
-warm and wet phenotype, still hypervolemic, comfortable on room air
Plan
-Continue with IV Bumex 1 mg BID, metolazone 5 mg on /
-monitor I's and O's, monitor weights, trend BMP for renal function
-Consider starting SGLT2i vs MRA if renal function permits
-Order complete echocardiogram to reassess LVEF
-Consider cardiology consult
#Urinary retention
-Was found to have 800 mL urine retained which required straight cath
-Currently on tamsulosin, unclear if related to BPH or other cause of obstruction
-Will continue to monitor, straight cath as needed, plan for Theodore at 3 times needed
#PAD s/p left BKA
#Hyperlipidemia
-Severe disease, likely related to diabetic history and other comorbidities
-Home medications include high intensity statin and aspirin
-No signs of CLI or poor perfusion right now
# Alcoholic cirrhosis
-MELD-Na 11; complicated by hepatic encephalopathy, on lactulose and Xifaxan
-Does have worsening abdomen bloating, likely fluid from heart failure not in ascites
-Consider diagnostic paracentesis if not improving abdominal distention
-Ordered ultrasound abdomen to assess degree of ascites
#CKD 3A
-Unclear etiology, likely related to diabetes and hypertensive history
-Most recently his renal function was normal, EGFR >60
-Will continue to trend BMP
#IDDM
-No recent A1c on record; C/B PAD and peripheral neuropathy
-Home medications include NovoLog and Tresiba
-Will transition to equivalent insulin scale while hospitalized
-Will add on ISS with Accu-Cheks for additional coverage
# Hypothyroidism
-Unclear etiology, no known iatrogenic causes
-Home regimen includes levothyroxine 137 mcg daily
-No obvious signs or symptoms of thyroid dysfunction no
# Anemia of chronic disease
-Secondary to the above issues; hemoglobin baseline near 10
-Hemoglobin on arrival was 9.8, no obvious signs of bleeding
-Will monitor daily CBC
#Chronic pain syndrome
-Will continue with home medication regimen for analgesia
#H/O SVT unspecified versus AFL
-No obvious signs of dysrhythmia/arrhythmia at this time
-Is not currently on any anticoagulant regimen
-Unclear if he had MCOT for ambulatory monitor
#S/p PPM
-Patient unsure medication sounds like SSS/tachybradycardia syndrome
-Scar is well-healed, no signs of dysfunction with
DVT prophylaxis: Lovenox
Diet: House, 2 g sodium restricted
CODE STATUS: Full code
Anticipated Discharge: > 48 hours
Subjective/Interval History
-
Date of Service: February 21, 2024
No acute events overnight. States he feels about the same today as he did yesterday, has put out urine with net -900 mL reported per I's and O's. Denies chest pain or shortness of breath, fevers or chills, gastroenterologic symptoms this morning.
He did have some urinary discomfort, was found to retain 800 mL urine which required straight cath. Symptoms improved following straight catheter
Objective Data
-
Labs:
Laboratory Results
02/21/24
06:00
WBC Pending
Hgb Pending
Hct Pending
Plt Count Pending
Sodium Pending
Potassium Pending
Chloride Pending
Carbon Dioxide Pending
BUN Pending
Creatinine Pending
Glucose Pending
Calcium Pending
Vital Signs:
Vital Signs
Temp Pulse Resp BP Pulse Ox
97.7 F 61 20 158/76 95
02/21/24 07:46 02/21/24 07:46 02/21/24 07:46 02/21/24 07:46 02/21/24 07:46
I&O
02/20/24 02/21/24 02/22/24
06:59 06:59 06:59
Output Total 900 / 900
Balance -900 / -900
Review of Systems
-
History Source: Patient
Constitutional: Reports No Symptoms
Respiratory: Reports No Symptoms
Cardiac: Reports No Symptoms
Abdomen/GI: Reports No Symptoms
Genitourinary: Reports Other (See subjective)
Musculoskeletal: Reports No Symptoms
Skin: Reports No Symptoms
Neuro: Reports No Symptoms
Physical Exam
-
General: Well Nourished, No Apparent Distress and Comfortable
HEENT: Normocephalic, Atraumatic and Moist Mucous Membranes; Negative Anicteric
Respiratory: Non Labored Respirations and Decreased Breath Sounds (Bilateral bases); Negative Wheezes, Rales, Rhonchi or Accessory Resp Muscle Use
Cardiac: Regular Rhythm, S1/S2, JVD and HJR; Negative Murmur, Rub or Gallop
GI: Soft, Nontender, Normal Bowel Sounds and Distended (Moderate)
Musculoskeletal: No Clubbing, No Cyanosis and Other (2+ pitting edema bilateral lower extremity; left BKA)
Skin: Warm and Dry; Negative Rash or Jaundice
Neuro: AO x 3, Nonfocal/Grossly Intact and Central Nerve's Intact
Data Reviewed
-
Labs: Labs Reviewed by me
[2024-02-21 11:20] LABS: % Basophils 0.5 % (0-2); % Eosinophils 2.9 % (0-6); % Immature Granulocytes 0.3 % (0-0.5); % Lymphocytes 16.9 % (20.5-51.1); % Monocytes 6.2 % (1.7-9.3); % Neutrophils 73.2 % (42.2-75.2); Absolute Eosinophils 0.1 10^3/uL (0-0.7); Absolute Lymphocytes 0.6 10^3/uL (1.2-3.4); Absolute Monocytes 0.2 10^3/uL (0.1-0.6); Absolute Neutrophils 2.7 10^3/uL (1.4-6.5); Hematocrit 26.2 % (39.0-52.0); Hemoglobin 8.8 g/dL (13.0-18.0); Mean Corp Hgb Conc. 33.6 g/dL (33.0-37.0); Mean Corpuscular Hgb 30.1 pg (27.0-31.0); Mean Corpuscular Volume 89.7 fL (80.0-94.0); Mean Platelet Volume 10.9 fL (7.4-10.4); Nucleated Red Blood Cells % 0 % (-); Platelet Count 85 10^3/uL (130-400); Red Blood Cell Count 2.92 10^6/uL (4.70-6.10); Red Cell Dist. Width 15.5 % (11.5-14.5); White Blood Cell Count 3.7 10^3/uL (4.8-10.8)
[2024-02-21 11:41] LABS: Glucose - Point of Care 203 mg/dl (70-99)
--- NOTE | 2024-02-21 11:46 | WOUNDNOTE ---
JHONY RN note: Patient admitted with CHF. Patient lives at the [facility].
See H&P for complete history.
PMH: alcoholic cirrhosis, HF, a fib, lymphedema, BKA, HTN, CKD3a, DM, obesity, anemia, chronic pain, urinary retention, L BKA stump wound debridement.
Wound Location and type/assessment: Patient known to service, last seen 08/18/23, admitted with Full thickness L BKA chronic slow to heal surgical site. Lymphedema in both legs. Base of wound with adherent slough, using Vashe moist gauze to dry
dressing daily. Has not been using compression or lymphedema pumps. Patient states he has help at [facility] to do dressing changes and apply vinnie wraps. PT was working with patient this morning, assessed intact sacrum. R heel is intact, blanchable red.
Skin on legs very dry.
Appetite: Good.
Pressure redistribution devices in place: He can turn in bed slowly with assistance. He is on [facility] Air bed.
Plan: Will confirm with hospitalist order for Santyl then Vashe moistened gauze to dry dressing daily. Called [facility] for Vashe. Moisturize legs with mineral oil, applied Vaseline today. Pillow placed under R leg and adhesive foam applied to heel to
protect. Vinnie wrap applied to R leg and L stump, knee high. Will update nurse Helen and follow as needed.
--- NOTE | 2024-02-21 12:10 | CM ---
Patient seen bedside.
Patient lives at [facility].
Patient has WC and scooter, can transfer in and out of chair by himself.
Brothers transport in handicap accessible Van.
Will need ambulance transport home.
Patient current with [facility].
PT/OT recommending home care.
Multiple wounds, cont IV Diresis.
PCP; Dr Fowler
Pharmacy: [facility] [address]
Plan: home with [facility]N
Referral to [facility]N
[2024-02-21] MEDS: NOVOLOG FLEXPEN-MODERATE RESISTANCE SC ×2 (13:47→17:40)
[2024-02-21] MEDS: NOVOLOG FLEXPEN 18 UNITS SC (13:48)
[2024-02-21 14:07] LABS: Blood Urea Nitrogen 32 mg/dl (9-20); Calcium 8.4 mg/dl (8.4-10.2); Carbon Dioxide 24 mmol/L (22-30); Chloride 104 mmol/L (98-107); Estimated Creatinine Clearance 94 ml/min; Glucose 188 mg/dl (70-99); Magnesium 2.6 mg/dl (1.6-2.3); Potassium 4.1 mmol/L (3.5-5.1); Sodium 135 mmol/L (135-145); eGFR > 60.00
[2024-02-21] MEDS: ZAROXOLYN 5 MG PO (16:00)
[2024-02-21 16:10] LABS: Glucose - Point of Care 108 mg/dl (70-99)
[2024-02-21 17:19] LABS: Glucose - Point of Care 100 mg/dl (70-99)
--- NOTE | 2024-02-21 17:30 | PTCARENOTE ---
1730 Pt blood sugar checked at 16:08 result 108. 1700 Pt ordered dinner meal. 1715 Pt called to have blood sugar recheck, pt felt blood sugar is low.
171 Recheck blood sugar, result 100. Pt express concern stated ' Novolog insulin 18 units is too much'
173 Dr. Lehman decrease Novolog to 10 units sq with each meal. Explain to pt current orders, pt express concern and refuse to take Novolog [address] Lehman notified.
[2024-02-21] MEDS: VITAMIN B-12 1000 MCG PO (18:09)
[2024-02-21] MEDS: LOVENOX 40 MG SC (18:09)
[2024-02-21] MEDS: LOPRESSOR 5 MG IV (21:01)
[2024-02-21 21:48] LABS: Glucose - Point of Care 110 mg/dl (70-99)
--- NOTE | 2024-02-21 22:07 | W.PN.UPDATE ---
Update Note
Progress Note Update
Per nursing, patient's HR changed from A-paced to tachycardic HR sustaining in 120-130s, patient asymptomatic other VSS. Rx 5mg IV Lopressor given with no improvement. Cardiology on-call consulted via TT for recommendation. Recommendation made to
continue to monitor. Consult placed for cardiology.
EKG EKG shows ACCELERATED JUNCTIONAL RHYTHM WITH RETROGRADE CONDUCTION
ABNORMAL ECG
WHEN COMPARED WITH ECG OF 20-FEB-2024 14:32,
JUNCTIONAL RHYTHM HAS REPLACED ELECTRONIC ATRIAL PACEMAKER
VENT. RATE HAS INCREASED BY 65 BPM
[2024-02-21] MEDS: FLOMAX 0.4 MG PO (22:51)
[2024-02-21] MEDS: LIPITOR 40 MG PO (22:51)
[2024-02-21] MEDS: ROXICODONE 10 MG PO (22:58)
--- NOTE | 2024-02-22 01:31 | PTCARENOTE ---
~19:54 Heart monitor alarmed that pt's A-paced changed to tachycardic sustaining 130s to 120s. Pt asymptomatic. VS: Pulse 127, Resp Rate 18, BP 138/65, and O2 96% on RA. Scheduled Toprol Xl administered, see MAR. Pt reported 'at night my HR
sometimes goes to the 120s or 130s then it comes down after 1 or 2 hours.' Notified MAY Mccormick. New orders placed. ECG completed. Plan of care ongoing.
~20:46 HR still sustaining 120s. New orders placed. Lopressor IV administered. Plan of care ongoing.
~22:48 Heart monitor showed tachycardic HR changed back to A-paced. Notified MAY Mccormick. Plan of care ongoing.
[2024-02-22 01:59] LABS: Glucose - Point of Care 84 mg/dl (70-99)
[2024-02-22 03:13] VITALS: BP 131/55
[2024-02-22 06:00] VITALS: BMI 46.2
[2024-02-22] MEDS: SYNTHROID 137 MCG PO (06:17)
[2024-02-22] MEDS: SANTYL OINTMENT 1 APPLIC TOPICAL (06:18)
[2024-02-22 07:13] VITALS: BP 153/77
--- NOTE | 2024-02-22 07:16 | PTCARENOTE ---
At beginning of shift, urinal collecting bag contained 250 mL pink tinged urine with 1 small blood clot. Pt was aware of blood clot in urine and asked if there was more than one. Condom cath tubing contained yellow urine. SUPERVISOR DUMPING aware. No more clots
throughout the night. Urine output was yellow throughout the night. AM RN aware. Plan of care ongoing.
[2024-02-22 08:08] LABS: Glucose - Point of Care 117 mg/dl (70-99)
[2024-02-22] MEDS: NOVOLOG FLEXPEN-MODERATE RESISTANCE SC ×2 (08:14→17:04)
[2024-02-22] MEDS: KCL 20 MEQ PO (08:17)
[2024-02-22] MEDS: MAGNESIUM OXIDE 500 MG PO (08:17)
[2024-02-22] MEDS: THERAGRAN 1 TABLET PO (08:17)
[2024-02-22] MEDS: XIFAXAN 550 MG PO ×2 (08:17→19:50)
[2024-02-22] MEDS: ROCALTROL 0.25 MCG PO (08:17)
[2024-02-22] MEDS: NEURONTIN 300 MG PO ×2 (08:17→19:50)
[2024-02-22] MEDS: ASPIR LOW (ENTERIC COATED) 81 MG PO (08:17)
[2024-02-22] MEDS: HYDROPHOR 1 APPLIC TOPICAL (08:18)
[2024-02-22] MEDS: ROXICODONE 10 MG PO ×3 (08:20→19:55)
[2024-02-22] MEDS: LANTUS 0.6 UNITS SC (08:20)
[2024-02-22] MEDS: NOVOLOG FLEXPEN SC ×3 (08:20→18:04)
[2024-02-22] MEDS: TOPROL XL 25 MG PO ×2 (08:25→11:45)
[2024-02-22] MEDS: BUMEX 1 MG IV ×2 (08:27→15:58)
--- NOTE | 2024-02-22 08:53 | CON.CAR ---
Addendum entered and electronically signed by Kaitlyn Gallegos MD 02/22/24 11:22:
I saw and examined the patient.
The RUG CLEANER HAND's note was reviewed and I agree with the note.
Comment: 63 y/o male with HFpEF, PAD with BKA, DM, HTN, ETOH cirrhosis, anemia, CKD, HLD, obesity, tachy-kayleigh syndrome with pacemaker, SVT, chronic LE lymphedema presents with massive volume overload and recurrent SVT. It seems he has not been
responding well to diuresis at home. On exam he has massive edema of legs with skin changes of chronic venous stasis. Edema in the belly. Lungs are clear to auscultation, regular rate and rhythm with normal S1-S2. Overall he has acute heart
failure with preserved EF and chronic lymphedema with massive volume overload. Agree with Bumex. He should be on an MRA and SGLT2 inhibitor. Will start MRA today and asked case management to ambrosio out SGLT2 inhibitor. Regarding his SVT he had
last night, this is resolved. In the past he had been on sotalol. Unclear why this has been stopped. Will request records from primary ladle repairman Dr. Mcfarland. Additionally will increase his beta-marcus. We will interrogate his device to see
how often this is an issue. Will follow.
Original Note:
Consultation
Consultation Request
Date/Time Consultation Requested: 02/21/246
Date/Time Consultation Performed: 02/22/24 0920
Requesting Provider: Janet OLVERA
Performing Provider: Lynn OLVERA for Dr. Gallegos
Reason for Consultation: tachycardia
Medical History
-
Chief Complaint: SOB
History of Present Illness:
63 y/o male with HFpEF, PAD with BKA, DM, HTN, ETOH cirrhosis, anemia, CKD, HLD, obesity, tachy-kayleigh syndrome with pacemaker, SVT, chronic LE lymphedema who is here for SOB, which has been progressing for a while now, but worsened over the past few
days. He has been off bumex for about 4 days since he ran out. He is admitted for management of CHF exacerbation. His weight is up 70 lbs from August! Additionally, he has abdominal bloating and severe LE edema and difficulty urinating due to
swelling as well. He is admitted for IV diursis. Echo is stable. We are consulted for pSVT that was noted on the monitor last night. He does not check weight at home as he is unable to do it (L BKA and wheelchair). Dr. Mcfarland is ladle repairman.
Past Medical History
Past Medical History: Arrhythmias (SVT), CHF, HTN, Hypercholesterolemia, Hypothyroidism, IDDM and Other (as above)
Social History
Tobacco: Non-Smoker
Alcohol: Former
Living: Other (at [facility])
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
Family History
Family History: Reviewed & Not Pertinent
Allergies / Home Medications
Allergy/AdvReac Type Severity Reaction Status Date / Time
No Known Allergies Allergy Verified 09/02/23 12:32
�Medication �Instructions �Recorded �Confirmed �Type
aspirin 81 mg tablet,delayed 81 mg PO DAILY Blood clot 09/25/19 02/20/24 History
release prevention/tx
atorvastatin 40 mg tablet 40 mg PO HS High cholesterol 09/25/19 02/20/24 History
calcitriol 0.25 mcg capsule 0.25 mcg PO DAILY Kidney Disease 09/25/19 02/20/24 History
insulin aspart U-100 100 unit/mL 18 unit SC AC Diabetes 04/21/22 02/20/24 History
(3 mL) subcutaneous pen (Novolog
FlexPen U-100 Insulin aspart)
insulin degludec 200 unit/mL (3 60 unit SC DAILY Diabetes 09/20/22 02/20/24 History
mL) subcutaneous pen (Tresiba
FlexTouch U-200 insulin)
magnesium oxide 500 mg PO DAILY Supplement 05/05/23 02/20/24 History
tamsulosin 0.4 mg capsule 0.4 mg PO HS prostate 05/05/23 02/20/24 History
trazodone 50 mg tablet 50 mg PO HS PRN SLEEP 07/21/23 02/20/24 History
bumetanide 1 mg tablet 1 mg PO BID Fluid 07/22/23 02/20/24 History
Retention/Swelling
pupaoqkm-oz-bcoiw 300 mcg-K 60 1 tab PO DAILY Supplement 07/22/23 02/20/24 History
mcg-lycop 600 mcg-lutein 300 mcg
tablet (Centrum Silver Men)
rifaximin 550 mg tablet (Xifaxan) 550 mg PO BID Liver Issues 08/18/23 02/20/24 History
cyanocobalamin (vitamin B-12) 1,000 mcg PO QPM 09/02/23 02/20/24 History
1,000 mcg tablet
gabapentin 300 mg capsule 300 mg PO BID 09/02/23 02/20/24 History
levothyroxine 137 mcg tablet 137 mcg PO DAILY@0700 09/02/23 02/20/24 History
oxycodone 10 mg tablet 10 mg PO Q4HPRN PRN moderate pain 09/02/23 02/20/24 History
potassium chloride 20 mEq 20 meq PO DAILY Electrolyte 09/02/23 02/20/24 History
tablet,extended release Repletion
metolazone 5 mg tablet 5 mg PO MOTU 02/20/24 02/20/24 History
metoprolol succinate 25 mg 25 mg PO BID 02/20/24 02/20/24 History
tablet,extended release 24 hr
(Toprol XL)
Review of Systems
-
History Source: Patient
All other systems: Negative unless noted
Constitutional: Weight Gain
Respiratory: Trouble Breathing
Abdomen/GI: Other (distention)
Musculoskeletal: Edema
Physical Exam
Vital Signs
Temp Pulse Resp BP Pulse Ox
98.4 F 61 16 131/55 95
02/22/24 03:13 02/22/24 03:13 02/22/24 03:13 02/22/24 03:13 02/22/24 03:13
Lab Results
Troponin I < 0.012 ng/ml 02/20/24 14:37
Uks-Q-Lmxxnsacpsf Pept 1370 pg/ml 02/20/24 14:37
Physical Exam
General: No Apparent Distress
HEENT: Normocephalic and Anicteric
Respiratory: Other (diminished to b/l bases)
Cardiac: Regular Rhythm
GI: Distended
Musculoskeletal: Edema (severe BLE edema (left BKA, but thigh edema noted))
Skin: Warm and Dry
Neuro: AO x 3
Psych: Calm
Impression / Plan
-
pSVT:
-patient has known PSVT and was previously on sotalol for this. He is no longer on it and thinks his ladle repairman stopped it, but details unknown. He is minimally symptomatic with it.
-continue metoprolol- increase dose and follow telemetry
-will have pacemaker interrogated to see how frequent this is
HFpEF: acute on chronic
-severe in that his weight is up 70 lbs from August and he has severe LE edema (of note, he also has chronic lymphedema)
-agree with IV diuretic, which requires intensive monitoring
-work on GDMT. Add spironolactone to start.
Anemia:
-AM labs pending
-management per primary
CKD:
-follow with diuresis- stable currently
Pacemaker:
-stable on telemetry- follow
-check device as above
Data Reviewed
-
EKG: Tracing Personally Visualized and interpreted (likely SVT 126 BPM )
Radiology: Report Reviewed by me (CXR: Low lung volumes. Cardiomegaly with increased pulmonary vascularity suggesting possible mild CHF.)
Medical Tests (Nuc Med, Echo etc): Report Reviewed by me (echo 02/21/24: Borderline LV size with mild LVH. Normal wall motion with EF 65% 2. MAC with trace MR)
Labs: Labs Reviewed by me
--- NOTE | 2024-02-22 08:59 | PN.CDI ---
CDI
- -
CDI:
Physician Documentation Request
Admit Date: 02/20/24 17:46
Dear Doctor Dominik,
Please review the following and provide your response in the progress notes.
Clinical Indicators:
Height: 5 ft 8 inches
Weight: 308
BMI: 46.9 8/5
If possible, please provide an associated diagnosis related to the abnormal BMI, such as:
BMI > or = to 40
Overweight
Obesity:
Due to excess calories
Drug induced
Due to other cause
Severe or morbid obesity:
With alveolar hypoventilation (Obesity hypoventilation syndrome)
Without alveolar hypoventilation
- BMI is not significant
- Other
Use of terms such as suspected, likely, concern for, or probable (associated with a specific diagnosis that is being evaluated, monitored, or treated as if it exists) are acceptable and can be coded in the inpatient setting, when documented at the
time of discharge.
Thank you,
Luisa Kirkland RN, BSN
CDI Specialist
tiger text
Please use your independent medical judgment in providing your response.
[2024-02-22 10:26] LABS: % Basophils 0.5 % (0-2); % Eosinophils 3.9 % (0-6); % Immature Granulocytes 0.5 % (0-0.5); % Lymphocytes 20.8 % (20.5-51.1); % Neutrophils 67.3 % (42.2-75.2); Absolute Eosinophils 0.2 10^3/uL (0-0.7); Absolute Lymphocytes 0.9 10^3/uL (1.2-3.4); Absolute Monocytes 0.3 10^3/uL (0.1-0.6); Absolute Neutrophils 2.8 10^3/uL (1.4-6.5); Hematocrit 28.3 % (39.0-52.0); Hemoglobin 9.4 g/dL (13.0-18.0); Mean Corp Hgb Conc. 33.2 g/dL (33.0-37.0); Mean Corpuscular Hgb 30.9 pg (27.0-31.0); Mean Corpuscular Volume 93.1 fL (80.0-94.0); Mean Platelet Volume 9.2 fL (7.4-10.4); Nucleated Red Blood Cells % 0 % (-); Platelet Count 77 10^3/uL (130-400); Red Blood Cell Count 3.04 10^6/uL (4.70-6.10); Red Cell Dist. Width 15.4 % (11.5-14.5); White Blood Cell Count 4.1 10^3/uL (4.8-10.8)
--- NOTE | 2024-02-22 10:40 | W.PN.HOSP.TC ---
Today's Communication/Plan
-
Continue IV Bumex, next metolazone for Tuesday
Monitor I's and O's, weights, sodium restricted diet
Start spironolactone for HFpEF GDMT
Uptitrate beta-marcus as needed for pSVT
Follow-up pacemaker interrogation
Assessment / Plan
Assessment / Plan
#Acute on chronic HFpEF
-Last LVEF 55 to 60% in 2022; Home meds include metoprolol succinate; no GDMT PTO
-Diuretic regimen includes Bumex twice daily and metolazone for sequential nephron blockade
-Decompensated from missing 4 days of Bumex, says pharmacy was out of stock
-BNP elevated, chest x-ray with signs of vascular prominence, hypervolemic on exam
-Repeat TTE here shows LVEF 65%, mild LVH, mild pulmonary hypertension
-Improving clinically; I/Os net -4 L, down multiple kilograms since admission
-warm and wet phenotype, still hypervolemic, comfortable on room air
Plan
-Continue with IV Bumex 1 mg BID, metolazone 5 mg on
-Started on spironolactone 25 mg, uptitrate as HD allow; Consider SGLT2i
-monitor I's and O's, monitor weights, trend BMP for renal function
-Monitor respiratory status
#Urinary retention
-Was found to have 800 mL urine retained which required straight cath
-Currently on tamsulosin, unclear if related to BPH or other cause of obstruction
-After multiple straight caths with >800 mL of urine, Theodore catheter was placed
-Possibly transient blood after catheter placement, urine is clear yellow today
Plan
-Plan for trial of void when euvolemic
-May require Theodore at discharge with outpatient urology follow-up
#Paroxysmal SVT
-Chronic issue, was previously on sotalol per cardiology; stopped by his outpatient heavy equipment service technician
-Had a run of tachycardia overnight on telemetry, minimally symptomatic with events
-Was given an extra dose of metoprolol today by cardiology, plan to interrogate pacemaker
Plan
-Continue metoprolol, uptitrate as needed for rate control
-Continue to follow on telemetry
-Follow-up PM interrogation
#PAD s/p left BKA
#Hyperlipidemia
-Severe disease, likely related to diabetic history and other comorbidities
-Home medications include high intensity statin and aspirin
-No signs of CLI or poor perfusion right now
#Alcoholic cirrhosis
-MELD-Na 11; complicated by hepatic encephalopathy, on lactulose and Xifaxan
-Does have worsening abdomen bloating, likely fluid from heart failure not in ascites
-Consider diagnostic paracentesis if not improving abdominal distention
-Ordered ultrasound abdomen to assess degree of ascites
#CKD 3A
-Unclear etiology, likely related to diabetes and hypertensive history
-Most recently his renal function was normal, EGFR >60
-Will continue to trend BMP
#IDDM
-No recent A1c on record; C/B PAD and peripheral neuropathy
-Home medications include NovoLog and Tresiba
-Will transition to equivalent insulin scale while hospitalized
-Will add on ISS with Accu-Cheks for additional coverage
#Hypothyroidism
-Unclear etiology, no known iatrogenic causes
-Home regimen includes levothyroxine 137 mcg daily
-No obvious signs or symptoms of thyroid dysfunction no
#Anemia of chronic disease
-Secondary to the above issues; hemoglobin baseline near 10
-Hemoglobin on arrival was 9.8, no obvious signs of bleeding
-Will monitor daily CBC
#Chronic pain syndrome
-Will continue with home medication regimen for analgesia
#S/p PPM
-Patient unsure medication sounds like SSS/tachybradycardia syndrome
-Scar is well-healed, no signs of dysfunction with
DVT prophylaxis: Lovenox
Diet: House, 2 g sodium restricted
CODE STATUS: Full code
Anticipated Discharge: 24 - 48 hours
Subjective/Interval History
-
Date of Service: February 22, 2024
Seen and examined at bedside today. States he feels improved, with less abdominal distention though still feels like he is carrying extra fluid. He denies any shortness of breath or chest pain.
Last night he did have a run of tachycardia picked up on telemetry, likely paroxysmal SVT which is known. Cardiology consult was placed by overnight team
Objective Data
-
Labs:
Laboratory Results
02/22/24
10:02
WBC 4.1 L
Hgb 9.4 L
Hct 28.3 L
Plt Count 77 L
Sodium Pending
Potassium Pending
Chloride Pending
Carbon Dioxide Pending
BUN Pending
Creatinine Pending
Glucose Pending
Calcium Pending
Vital Signs:
Vital Signs
Temp Pulse Resp BP Pulse Ox
97.4 F 62 20 153/77 96
02/22/24 07:13 02/22/24 07:13 02/22/24 07:13 02/22/24 07:13 02/22/24 07:13
I&O
02/21/24 02/22/24 02/23/24
06:59 06:59 06:59
Intake Total 1290 / 1290
Output Total 900 / 900 5300 / 5300
Balance -900 / -900 -4010 / -4010
Review of Systems
-
History Source: Patient
Constitutional: Reports No Symptoms
Respiratory: Reports No Symptoms
Cardiac: Reports No Symptoms
Abdomen/GI: Reports Bloated; Denies Nausea, Vomiting, Diarrhea, Constipated or Bloody Stools
Genitourinary: Reports Difficulty Voiding
Musculoskeletal: Reports No Symptoms
Skin: Reports No Symptoms
Neuro: Reports No Symptoms
Endocrine: Reports No Symptoms
Hematologic / Lymphatic: Reports No Symptoms
Physical Exam
-
General: Obese
HEENT: Normocephalic, Atraumatic, Moist Mucous Membranes and Anicteric
Respiratory: Clear to Auscultation (Upper lungs) and Decreased Breath Sounds (Bases); Negative Wheezes, Rales or Rhonchi
Cardiac: Regular Rhythm, S1/S2, JVD and HJR; Negative Murmur, Rub or Gallop
GI: Soft, Nontender, Normal Bowel Sounds and Distended (Improving, less tense today)
Musculoskeletal: No Clubbing, No Cyanosis and Other (2+ edema of lower extremities bilaterally; left BKA noted)
Skin: Warm, Dry and Normal Turgor; Negative Rash or Jaundice
Neuro: AO x 3, Nonfocal/Grossly Intact and Central Nerve's Intact; Negative Tremors
Data Reviewed
-
Labs: Labs Reviewed by me
[2024-02-22 11:21] LABS: Blood Urea Nitrogen 37 mg/dl (9-20); Calcium 8.6 mg/dl (8.4-10.2); Carbon Dioxide 26 mmol/L (22-30); Chloride 102 mmol/L (98-107); Estimated Creatinine Clearance 86 ml/min; Glucose 168 mg/dl (70-99); Magnesium 2.3 mg/dl (1.6-2.3); Potassium 4.3 mmol/L (3.5-5.1); Sodium 136 mmol/L (135-145); eGFR > 60.00
--- NOTE | 2024-02-22 11:25 | CM ---
Case management consult completed.
TT to Lynn Alba.
Farxiga not covered under his insurance, but Jardiance is covered no cost.
[2024-02-22 11:42] VITALS: BP 145/66
[2024-02-22] MEDS: ALDACTONE 25 MG PO (11:45)
[2024-02-22 12:27] LABS: Glucose - Point of Care 175 mg/dl (70-99)
[2024-02-22] MEDS: NOVOLOG FLEXPEN-MODERATE RESISTANCE 1 UNITS SC (12:28)
[2024-02-22] MEDS: NOVOLOG FLEXPEN 10 UNITS SC (12:29)
[2024-02-22 15:50] VITALS: BP 152/65
--- NOTE | 2024-02-22 16:17 | CM ---
Continue diuresis.
PT recommending home with HC vs no needs.
Accepted by [facility].
Plan: home with VN when stable.
[2024-02-22 16:58] LABS: Glucose - Point of Care 142 mg/dl (70-99)
[2024-02-22] MEDS: LOVENOX 40 MG SC (17:51)
[2024-02-22] MEDS: VITAMIN B-12 1000 MCG PO (17:51)
[2024-02-22 19:42] VITALS: BP 142/63
[2024-02-22] MEDS: TOPROL XL 50 MG PO (19:50)
[2024-02-22] MEDS: LIPITOR 40 MG PO (21:19)
[2024-02-22] MEDS: FLOMAX 0.4 MG PO (21:19)
[2024-02-22 21:37] LABS: Glucose - Point of Care 213 mg/dl (70-99)
[2024-02-22 23:37] VITALS: BP 141/61
[2024-02-23] VITALS (7 sets, daily range): BP systolic 127–162; BP diastolic 54–74; BMI 45.5
[2024-02-23] MEDS: ROXICODONE 10 MG PO ×3 (03:23→18:04)
[2024-02-23] MEDS: SYNTHROID 137 MCG PO (05:29)
[2024-02-23] MEDS: SANTYL OINTMENT 1 APPLIC TOPICAL (05:29)
[2024-02-23 08:01] LABS: Glucose - Point of Care 151 mg/dl (70-99)
[2024-02-23 08:44] LABS: % Basophils 0.5 % (0-2); % Eosinophils 4.8 % (0-6); % Immature Granulocytes 0.5 % (0-0.5); % Lymphocytes 21.2 % (20.5-51.1); % Monocytes 8.4 % (1.7-9.3); % Neutrophils 64.6 % (42.2-75.2); Absolute Eosinophils 0.2 10^3/uL (0-0.7); Absolute Lymphocytes 0.8 10^3/uL (1.2-3.4); Absolute Monocytes 0.3 10^3/uL (0.1-0.6); Absolute Neutrophils 2.5 10^3/uL (1.4-6.5); Hematocrit 28.4 % (39.0-52.0); Hemoglobin 9.6 g/dL (13.0-18.0); Mean Corp Hgb Conc. 33.8 g/dL (33.0-37.0); Mean Corpuscular Hgb 30.8 pg (27.0-31.0); Mean Platelet Volume 9.5 fL (7.4-10.4); Nucleated Red Blood Cells % 0 % (-); Platelet Count 76 10^3/uL (130-400); Red Blood Cell Count 3.12 10^6/uL (4.70-6.10); Red Cell Dist. Width 15.1 % (11.5-14.5); White Blood Cell Count 3.9 10^3/uL (4.8-10.8)
[2024-02-23] MEDS: JARDIANCE 10 MG PO (08:48)
[2024-02-23] MEDS: ALDACTONE 25 MG PO (08:48)
[2024-02-23] MEDS: ASPIR LOW (ENTERIC COATED) 81 MG PO (08:48)
[2024-02-23] MEDS: BUMEX 1 MG IV ×2 (08:48→16:07)
[2024-02-23] MEDS: LANTUS 0.6 UNITS SC (08:48)
[2024-02-23] MEDS: NEURONTIN 300 MG PO ×2 (08:48→20:02)
[2024-02-23] MEDS: XIFAXAN 550 MG PO ×2 (08:48→20:03)
[2024-02-23] MEDS: ROCALTROL 0.25 MCG PO (08:48)
[2024-02-23] MEDS: KCL 20 MEQ PO (08:48)
[2024-02-23] MEDS: TOPROL XL 50 MG PO ×2 (08:48→20:03)
[2024-02-23] MEDS: THERAGRAN 1 TABLET PO (08:48)
[2024-02-23] MEDS: MAGNESIUM OXIDE 500 MG PO (08:48)
[2024-02-23] MEDS: NOVOLOG FLEXPEN SC ×3 (08:49→17:16)
[2024-02-23] MEDS: NOVOLOG FLEXPEN-MODERATE RESISTANCE SC ×3 (08:49→17:16)
[2024-02-23] MEDS: HYDROPHOR 1 APPLIC TOPICAL (08:50)
[2024-02-23 09:13] LABS: Blood Urea Nitrogen 38 mg/dl (9-20); Calcium 8.9 mg/dl (8.4-10.2); Carbon Dioxide 32 mmol/L (22-30); Chloride 101 mmol/L (98-107); Estimated Creatinine Clearance 93 ml/min; Glucose 126 mg/dl (70-99); Magnesium 2.1 mg/dl (1.6-2.3); Potassium 4.1 mmol/L (3.5-5.1); Sodium 137 mmol/L (135-145); eGFR > 60.00
--- NOTE | 2024-02-23 09:46 | W.PN.CD ---
Today's Communication / Plan
-
continue IV bumex
continue Toprol XL 50mg bid
trend tele
Impression / Plan
-
HFpEF: acute on chronic, severe
-severe in that his weight is up 70 lbs from August and he has severe LE edema (of note, he also has chronic lymphedema too)
-continue bumex 1mg IV bid, with close monitoring of labs and tele
-continue aldactone 25mg daily, and jardiance 10mg daily (new)
-no co pay for jardiance confirmed
pSVT:
-patient has known PSVT and was previously on sotalol for this. He is no longer on it and thinks his financial controller stopped it, but details unknown. He is minimally symptomatic with it.
-continue metoprolol- increase dose and follow telemetry: now at Toprol XL 50mg bid
-will have pacemaker interrogated to see how frequent this is: he is having frequent short runs at home, but no runs overnight since Toprol increase
Anemia:
-chronic
CKD:
-noted in history, but normal Cr/GFR so far
Pacemaker:
-stable on telemetry- Apaced
Physical Exam
Vital Signs/Labs
Vital Signs
Temp Pulse Resp BP Pulse Ox
97.4 F 61 18 146/71 97
02/23/24 07:55 02/23/24 07:55 02/23/24 07:55 02/23/24 07:55 02/23/24 07:55
02/22/24 02/23/24 02/24/24
06:59 06:59 06:59
Actual Weight 137.665 kg 135.794 kg
02/23/24 08:25
02/23/24 08:25
Magnesium 2.1 mg/dl (1.6-2.3) 02/23/24 08:25
TSH 4.34 uIU/ml (0.47-4.68) 02/20/24 14:37
02/20/24
14:37
Txl-N-Qwzczysupvv Pept 1370
LAB Results
02/20/24
14:37
Troponin I < 0.012
Physical Exam
Constitutional: No acute distress and Comfortable
EENT: Moist mucous membranes
Cardiovascular: Rhythm & rate is regular, Systolic murmur absent, Pedal edema present and JVD present
Respiratory: Respiratory effort normal and Lungs clear to auscul.
GI: Soft and Distention absent
Neuro/Psych: AO x 3
Data Reviewed
-
Date of Service: February 23, 2024
EKG: Other (Tele: A paced 60)
Labs: Labs Reviewed by me
--- NOTE | 2024-02-23 10:33 | W.PN.HOSP.TC ---
Addendum entered and electronically signed by Chad Lehman DO 02/23/24 17:15:
CDI clarification: CBC abnormalities represent multifacorial pancytopenia. Non-contributory to admission. Chronic anemia and thrombocytopenia with chronic ESLD/systemic illness. Leukopenia is mild, but below baseline. Will monitor CBC, consider
hematology follow up at [place].
Original Note:
Today's Communication/Plan
-
Continue with IV Bumex, next dose metolazone tomorrow morning
Continue with metoprolol succinate 50 mg twice daily for PSVT
Monitor on telemetry
Plan for trial of void prior to [place]
Assessment / Plan
Assessment / Plan
#Acute on chronic HFpEF
-Last LVEF 55 to 60% in 2022; Home meds include metoprolol succinate; no GDMT PTO
-Diuretic regimen includes Bumex twice daily and metolazone for sequential nephron blockade
-Decompensated from missing 4 days of Bumex, says pharmacy was out of stock
-BNP elevated, chest x-ray with signs of vascular prominence, hypervolemic on exam
-Repeat TTE here shows LVEF 65%, mild LVH, mild pulmonary hypertension
-Improving clinically; I/Os net -4 L, down multiple kilograms since admission
-warm and wet phenotype, still hypervolemic, comfortable on room air
Plan
-Continue with IV Bumex 1 mg BID, metolazone 5 mg on /
-Started on spironolactone 25 mg, uptitrate as HD allow; Consider SGLT2i
-monitor I's and O's, monitor weights, trend BMP for renal function
-Monitor respiratory status
#Urinary retention
-Was found to have 800 mL urine retained which required straight cath
-Currently on tamsulosin, unclear if related to BPH or other cause of obstruction
-After multiple straight caths with >800 mL of urine, Theodore catheter was placed
-Possibly transient blood after catheter placement, urine is clear yellow today
Plan
-Plan for trial of void when euvolemic
-May require Theodore at discharge with outpatient urology follow-up
#Paroxysmal SVT
-Chronic issue, was previously on sotalol per cardiology; stopped by his outpatient hide measuring machine operator
-Had a run of tachycardia overnight on telemetry, minimally symptomatic with events
-Was given an extra dose of metoprolol today by cardiology, plan to interrogate pacemaker
-Heart rate has appeared stable on higher dose of metoprolol
Plan
-Continue metoprolol succinate 50 mg twice daily
-Continue to follow on telemetry
#PAD s/p left BKA
#Hyperlipidemia
-Severe disease, likely related to diabetic history and other comorbidities
-Home medications include high intensity statin and aspirin
-No signs of CLI or poor perfusion right now
#Alcoholic cirrhosis
-MELD-Na 11; complicated by hepatic encephalopathy, on lactulose and Xifaxan
-Does have worsening abdomen bloating, likely fluid from heart failure not in ascites
-Consider diagnostic paracentesis if not improving abdominal distention
-Ordered ultrasound abdomen to assess degree of ascites
#CKD 3A
-Unclear etiology, likely related to diabetes and hypertensive history
-Most recently his renal function was normal, EGFR >60
-Will continue to trend BMP
#IDDM
-No recent A1c on record; C/B PAD and peripheral neuropathy
-Home medications include NovoLog and Tresiba
-Will transition to equivalent insulin scale while hospitalized
-Will add on ISS with Accu-Cheks for additional coverage
#Hypothyroidism
-Unclear etiology, no known iatrogenic causes
-Home regimen includes levothyroxine 137 mcg daily
-No obvious signs or symptoms of thyroid dysfunction no
#Anemia of chronic disease
-Secondary to the above issues; hemoglobin baseline near 10
-Hemoglobin on arrival was 9.8, no obvious signs of bleeding
-Will monitor daily CBC
#Chronic pain syndrome
-Will continue with home medication regimen for analgesia
#S/p PPM
-Patient unsure medication sounds like SSS/tachybradycardia syndrome
-Scar is well-healed, no signs of dysfunction with
#Morbid obesity -- BMI 45
-BMI may be inaccurate in the context of excessive hypervolemia
-Still has obese habitus, recommend diet/exercise as he tolerates
DVT prophylaxis: Lovenox
Diet: House, 2 g sodium restricted
CODE STATUS: Full code
Anticipated Discharge: 24 - 48 hours
Subjective/Interval History
-
Date of Service: February 23, 2024
Seen and examined at the bedside. Feels good, appears to have more energy today. Denies any chest pain or shortness of breath, denies fevers or chills, GI issues or urinary issues at this moment. 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
with some abdominal distention still present which is worse when he flexes at the waist.
Objective Data
-
Labs:
Laboratory Results
02/23/24
08:25
WBC 3.9 L
Hgb 9.6 L
Hct 28.4 L
Plt Count 76 L
Sodium 137
Potassium 4.1
Chloride 101
Carbon Dioxide 32 H
BUN 38 H
Creatinine 1.1
Glucose 126 H
Calcium 8.9
Vital Signs:
Vital Signs
Temp Pulse Resp BP Pulse Ox
97.4 F 61 18 146/71 97
02/23/24 07:55 02/23/24 07:55 02/23/24 07:55 02/23/24 07:55 02/23/24 08:00
I&O
02/22/24 02/23/24 02/24/24
06:59 06:59 06:59
Intake Total 1290 / 1290 1620 / 1620
Output Total 5300 / 5300 5200 / 5200
Balance -4010 / -4010 -3580 / -3580
Review of Systems
-
History Source: Patient
All other systems: Reviewed and negative
Physical Exam
-
General: Well Nourished, No Apparent Distress and Comfortable; Negative Respiratory Distress
HEENT: Normocephalic, Atraumatic, Moist Mucous Membranes and Anicteric
Respiratory: Non Labored Respirations and Decreased Breath Sounds (Bilateral bases, improved); Negative Wheezes, Rales or Rhonchi
Cardiac: Regular Rhythm, S1/S2 and JVD; Negative Murmur, Rub or Gallop
GI: Soft, Nontender, Normal Bowel Sounds and Distended (Improving)
Musculoskeletal: No Clubbing, No Cyanosis and Other (2+ LE edema; left-sided BKA)
Skin: Warm, Dry and Normal Turgor; Negative Rash
Neuro: AO x 3, Nonfocal/Grossly Intact and Central Nerve's Intact
Data Reviewed
-
Labs: Labs Reviewed by me and Discussed with Patient
[2024-02-23 12:13] LABS: Glucose - Point of Care 170 mg/dl (70-99)
--- NOTE | 2024-02-23 12:15 | PN.CDI ---
CDI
- -
CDI:
Physician Documentation Request
Admit Date: 02/20/24 17:46
Dear Doctor Dominik,
Patient admitted for management of heart failure.
Recent labs:
Laboratory Tests
02/21/24 02/22/24 02/23/24
10:40 10:02 08:25
WBC 3.7 L 4.1 L 3.9 L
RBC 2.92 L 3.04 L 3.12 L
Plt Count 85 L 77 L 76 L
Please provide a diagnosis that supports the above lab abnormalities and additional evaluation, monitoring:
Pancytopenia
Abnormal lab values clinically insignificant
Other
Use of terms such as suspected, likely, concern for, or probable (associated with a specific diagnosis that is being evaluated, monitored, or treated as if it exists) are acceptable and can be coded in the inpatient setting, when documented at the
time of discharge.
Thank you,
Luisa Kirkland RN, BSN
CDI Specialist
tiger text
Please use your independent medical judgment in providing your response.
--- NOTE | 2024-02-23 12:19 | CM ---
Patient seen bedside.
Theodore cath draining.
Continue IV diuresis.
Plan home vs skilled rehab.
[2024-02-23] MEDS: NOVOLOG FLEXPEN-MODERATE RESISTANCE 1 UNITS SC (12:43)
[2024-02-23] MEDS: NOVOLOG FLEXPEN 10 UNITS SC (12:44)
[2024-02-23 17:15] LABS: Glucose - Point of Care 145 mg/dl (70-99)
[2024-02-23] MEDS: VITAMIN B-12 1000 MCG PO (18:02)
[2024-02-23] MEDS: LOVENOX 40 MG SC (18:02)
[2024-02-23] MEDS: FLOMAX 0.4 MG PO (20:03)
[2024-02-23] MEDS: LIPITOR 40 MG PO (20:03)
[2024-02-23 21:13] LABS: Glucose - Point of Care 184 mg/dl (70-99)
[2024-02-24] VITALS (7 sets, daily range): BP systolic 125–151; BP diastolic 52–69; PULSE 61; O2SAT 96; BMI 45.6
[2024-02-24] MEDS: SYNTHROID 137 MCG PO (04:27)
[2024-02-24] MEDS: ROXICODONE 10 MG PO ×3 (04:27→21:01)
[2024-02-24 07:50] LABS: Glucose - Point of Care 162 mg/dl (70-99)
[2024-02-24] MEDS: ALDACTONE 25 MG PO (08:09)
[2024-02-24] MEDS: MAGNESIUM OXIDE 500 MG PO (08:09)
[2024-02-24] MEDS: KCL 20 MEQ PO (08:09)
[2024-02-24] MEDS: ROCALTROL 0.25 MCG PO (08:09)
[2024-02-24] MEDS: BUMEX 1 MG IV ×2 (08:09→16:28)
[2024-02-24] MEDS: NEURONTIN 300 MG PO ×2 (08:09→19:23)
[2024-02-24] MEDS: ASPIR LOW (ENTERIC COATED) 81 MG PO (08:09)
[2024-02-24] MEDS: THERAGRAN 1 TABLET PO (08:09)
[2024-02-24] MEDS: TOPROL XL 50 MG PO ×2 (08:09→19:23)
[2024-02-24] MEDS: JARDIANCE 10 MG PO (08:09)
[2024-02-24] MEDS: HYDROPHOR 1 APPLIC TOPICAL (08:10)
[2024-02-24] MEDS: XIFAXAN 550 MG PO ×2 (08:10→19:23)
[2024-02-24] MEDS: SANTYL OINTMENT TOPICAL (08:11)
[2024-02-24] MEDS: LANTUS 0.6 UNITS SC (08:12)
[2024-02-24] MEDS: NOVOLOG FLEXPEN-MODERATE RESISTANCE SC ×2 (08:32→17:13)
[2024-02-24] MEDS: NOVOLOG FLEXPEN SC ×2 (08:32→17:13)
[2024-02-24 10:13] LABS: % Basophils 0.7 % (0-2); % Eosinophils 4.6 % (0-6); % Immature Granulocytes 0.5 % (0-0.5); % Lymphocytes 20.6 % (20.5-51.1); % Monocytes 7.9 % (1.7-9.3); % Neutrophils 65.7 % (42.2-75.2); Absolute Eosinophils 0.2 10^3/uL (0-0.7); Absolute Lymphocytes 0.9 10^3/uL (1.2-3.4); Absolute Monocytes 0.3 10^3/uL (0.1-0.6); Absolute Neutrophils 2.8 10^3/uL (1.4-6.5); Hematocrit 28.7 % (39.0-52.0); Hemoglobin 9.7 g/dL (13.0-18.0); Mean Corp Hgb Conc. 33.8 g/dL (33.0-37.0); Mean Corpuscular Hgb 30.8 pg (27.0-31.0); Mean Corpuscular Volume 91.1 fL (80.0-94.0); Mean Platelet Volume 10.7 fL (7.4-10.4); Nucleated Red Blood Cells % 0 % (-); Platelet Count 82 10^3/uL (130-400); Red Blood Cell Count 3.15 10^6/uL (4.70-6.10); White Blood Cell Count 4.3 10^3/uL (4.8-10.8)
--- NOTE | 2024-02-24 10:18 | W.PN.HOSP.TC ---
Today's Communication/Plan
-
Follow-up BMP
Tuesday dose metolazone today if BMP without new WALDO
Continue with IV Bumex twice daily
I's/O's and daily weights
Assessment / Plan
Assessment / Plan
#Acute on chronic HFpEF
-Last LVEF 55 to 60% in 2022; Home meds include metoprolol succinate; no GDMT PTO
-Diuretic regimen includes Bumex twice daily and metolazone for sequential nephron blockade
-Decompensated from missing 4 days of Bumex, says pharmacy was out of stock
-Repeat TTE here shows LVEF 65%, mild LVH, mild pulmonary hypertension
-Improving clinically; I/Os net -4.1 L, weight is down multiple Kg from admission
-warm and wet phenotype, still hypervolemic though improving, comfortable on room air
Plan
-Continue with IV Bumex 1 mg BID, metolazone 5 mg on /; follow-up morning BMP
-Started on spironolactone 25 mg, uptitrate as HD allow; Consider SGLT2i
-monitor I's and O's, monitor weights, trend BMP daily for renal function
-Monitor respiratory status
#Urinary retention
-Was found to have 800 mL urine retained which required straight cath
-Currently on tamsulosin, unclear if related to BPH or other cause of obstruction
-After multiple straight caths with >800 mL of urine, Theodore catheter was placed
-Possibly transient blood after catheter placement, urine is clear yellow today
Plan
-Plan for trial of void when euvolemic
-May require Theodore at discharge with outpatient urology follow-up
#Paroxysmal SVT
-Chronic issue, was previously on sotalol per cardiology; stopped by his outpatient painter chassis
-Had a run of tachycardia overnight on telemetry, minimally symptomatic with events
-Was given an extra dose of metoprolol today by cardiology, plan to interrogate pacemaker
-Heart rate has appeared stable on higher dose of metoprolol succinate (50 mg twice daily)
#PAD s/p left BKA
#Hyperlipidemia
-Severe disease, likely related to diabetic history and other comorbidities
-Home medications include high intensity statin and aspirin
-No signs of CLI or poor perfusion right now
#Alcoholic cirrhosis
#Chronic thrombocytopenia -- platelet baseline 70-90
-MELD-Na 11; complicated by HE, on lactulose and Xifaxan
-Ultrasound here did not show significant degree of ascites
-Seems fairly well compensated
#CKD 3A
-Unclear etiology, likely related to diabetes and hypertensive history
-Most recently his renal function was normal, EGFR >60
-Will continue to trend BMP as above
#IDDM
-No recent A1c on record; C/B PAD and peripheral neuropathy
-Home medications include NovoLog and Tresiba; ISS added on admission
-Blood glucose has been well-controlled here with current
#Hypothyroidism
-Unclear etiology, no known iatrogenic causes
-Home regimen includes levothyroxine 137 mcg daily
-No obvious signs or symptoms of thyroid dysfunction no
#Anemia of chronic disease
-Secondary to the above issues; hemoglobin baseline near 9-10
-Hemoglobin on arrival was 9.8, no obvious signs of bleeding
-CBC has been stable, no signs of bleeding
#Chronic pain syndrome
-Will continue with home medication regimen for analgesia
#S/p PPM
-Patient unsure medication sounds like SSS/tachybradycardia syndrome
-Scar is well-healed, no signs of dysfunction with
#Morbid obesity -- BMI 45
-BMI may be inaccurate in the context of excessive hypervolemia
-Still has obese habitus, recommend diet/exercise as he tolerates
DVT prophylaxis: Lovenox
Diet: House, 2 g sodium restricted
CODE STATUS: Full code
Anticipated Discharge: 24 - 48 hours
Subjective/Interval History
-
Date of Service: February 24, 2024
No acute events overnight. Feels well this morning, is in good spirits. Denies any chest pain, shortness of breath, fevers or chills, nausea, vomiting, diarrhea, paresthesias or abnormal bleeding or bruising. He does state his abdominal
distention is improving day by day though still present. Feels that his legs and other parts of body are still heavy.
Objective Data
-
Labs:
Laboratory Results
02/24/24
09:27
WBC 4.3 L
Hgb 9.7 L
Hct 28.7 L
Plt Count 82 L
Sodium Pending
Potassium Pending
Chloride Pending
Carbon Dioxide Pending
BUN Pending
Creatinine Pending
Glucose Pending
Calcium Pending
Vital Signs:
Vital Signs
Temp Pulse Resp BP Pulse Ox
97.8 F 61 18 141/69 97
02/24/24 08:08 02/24/24 08:08 02/24/24 08:08 02/24/24 08:09 02/24/24 08:08
I&O
02/23/24 02/24/24 02/25/24
06:59 06:59 06:59
Intake Total 1620 / 1620 1800 / 1800
Output Total 5200 / 5200 5900 / 5900
Balance -3580 / -3580 -4100 / -4100
Review of Systems
-
History Source: Patient
All other systems: Reviewed and negative
Physical Exam
-
General: Well Nourished, No Apparent Distress, Comfortable and Obese; Negative Respiratory Distress
HEENT: Normocephalic, Atraumatic and Moist Mucous Membranes; Negative Anicteric
Respiratory: Rales (Bibasilar, CTA otherwise) and Non Labored Respirations; Negative Wheezes, Rhonchi or Accessory Resp Muscle Use
Cardiac: Regular Rhythm, S1/S2 and JVD (Improving); Negative Murmur, Rub or Gallop
GI: Soft, Nontender, Normal Bowel Sounds and Distended (Mildly, improving)
Musculoskeletal: No Clubbing, No Cyanosis and Other (Left BKA, no other gross abnormalities); Negative No Edema (1+ lower extremity edema)
Skin: Warm and Dry; Negative Rash
Neuro: AO x 3, Nonfocal/Grossly Intact and Central Nerve's Intact
Data Reviewed
-
Labs: Labs Reviewed by me
--- NOTE | 2024-02-24 11:38 | W.PN.CD ---
Today's Communication / Plan
-
Cont IV diuresis with Bumex
Impression / Plan
-
HFpEF: acute on chronic, severe
-severe in that his weight is up 70 lbs from August and he has severe LE edema (of note, he also has chronic lymphedema too)
-continue bumex 1mg IV bid, with close monitoring of labs and tele
-continue aldactone 25mg daily, and jardiance 10mg daily (new)
-no co pay for jardiance confirmed
- weight is 300 lbs today, up ~ 1 lb from yesterday, if resistant likely need to increase bumex to 2 IV daily
pSVT:
-patient has known PSVT and was previously on sotalol for this. He is no longer on it and thinks his ring striker stopped it, but details unknown. He is minimally symptomatic with it.
-continue metoprolol- increase dose and follow telemetry: now at Toprol XL 50mg bid
-will have pacemaker interrogated to see how frequent this is: he is having frequent short runs at home, but no runs overnight since Toprol increase
Anemia:
-chronic
CKD:
-noted in history, but normal Cr/GFR so far
Pacemaker:
-stable on telemetry- Apaced
Physical Exam
Vital Signs/Labs
Vital Signs
Temp Pulse Resp BP Pulse Ox
97.8 F 61 18 141/69 97
02/24/24 08:08 02/24/24 08:08 02/24/24 08:08 02/24/24 08:09 02/24/24 08:08
02/23/24 02/24/24 02/25/24
06:59 06:59 06:59
Actual Weight 299 lb 6 oz 300 lb 2 oz
02/24/24 09:27
Magnesium 2.1 mg/dl (1.6-2.3) 02/23/24 08:25
TSH 4.34 uIU/ml (0.47-4.68) 02/20/24 14:37
02/20/24
14:37
Pou-I-Rpooduloscf Pept 1370
Physical Exam
Constitutional: No acute distress
EENT: Anicteric
Cardiovascular: Rhythm & rate is regular, Pedal edema present and JVD present
Respiratory: Respiratory effort normal and Lungs clear to auscul.
GI: Soft
Neuro/Psych: AO x 3
Data Reviewed
-
Date of Service: February 24, 2024
EKG: Tracing Personally Visualized and interpreted (sr)
Labs: Labs Reviewed by me
--- NOTE | 2024-02-24 12:00 | CM ---
Patient seen bedside.
Continues IV Bumex BID.
Plan home with [facility] on discharge, although patient may be interested in skilled rehab prior to home depending how he does.
Patient will require transportation home.
[2024-02-24 12:05] LABS: Glucose - Point of Care 208 mg/dl (70-99)
[2024-02-24] MEDS: NOVOLOG FLEXPEN 10 UNITS SC (12:07)
[2024-02-24] MEDS: NOVOLOG FLEXPEN-MODERATE RESISTANCE 3 UNITS SC (12:07)
[2024-02-24 12:12] LABS: Blood Urea Nitrogen 41 mg/dl (9-20); Calcium 9.1 mg/dl (8.4-10.2); Carbon Dioxide 28 mmol/L (22-30); Chloride 101 mmol/L (98-107); Estimated Creatinine Clearance 93 ml/min; Glucose 195 mg/dl (70-99); Sodium 135 mmol/L (135-145); eGFR > 60.00
[2024-02-24] MEDS: ZAROXOLYN 5 MG PO (15:39)
[2024-02-24 17:10] LABS: Glucose - Point of Care 98 mg/dl (70-99)
[2024-02-24] MEDS: VITAMIN B-12 1000 MCG PO (17:42)
[2024-02-24] MEDS: LOVENOX 40 MG SC (17:42)
[2024-02-24] MEDS: LIPITOR 40 MG PO (19:23)
[2024-02-24] MEDS: FLOMAX 0.4 MG PO (19:23)
[2024-02-24 21:41] LABS: Glucose - Point of Care 122 mg/dl (70-99)
--- NOTE | 2024-02-25 01:32 | PTCARENOTE ---
pt with large hard bm- bp ordered Colace
[2024-02-25 03:43] VITALS: BP 132/60
[2024-02-25 06:00] VITALS: BMI 43.1
[2024-02-25] MEDS: SYNTHROID 137 MCG PO (06:02)
[2024-02-25] MEDS: ROXICODONE 10 MG PO ×3 (06:32→23:42)
[2024-02-25 07:00] VITALS: BP 137/70
[2024-02-25 07:04] LABS: Glucose - Point of Care 131 mg/dl (70-99)
[2024-02-25 09:24] LABS: % Basophils 0.7 % (0-2); % Eosinophils 5.7 % (0-6); % Immature Granulocytes 0.2 % (0-0.5); % Lymphocytes 21.3 % (20.5-51.1); % Monocytes 7.8 % (1.7-9.3); % Neutrophils 64.3 % (42.2-75.2); Absolute Eosinophils 0.2 10^3/uL (0-0.7); Absolute Lymphocytes 0.9 10^3/uL (1.2-3.4); Absolute Monocytes 0.3 10^3/uL (0.1-0.6); Absolute Neutrophils 2.7 10^3/uL (1.4-6.5); Hematocrit 28.7 % (39.0-52.0); Hemoglobin 9.7 g/dL (13.0-18.0); Mean Corp Hgb Conc. 33.8 g/dL (33.0-37.0); Mean Corpuscular Hgb 30.8 pg (27.0-31.0); Mean Corpuscular Volume 91.1 fL (80.0-94.0); Mean Platelet Volume 10.7 fL (7.4-10.4); Nucleated Red Blood Cells % 0 % (-); Platelet Count 83 10^3/uL (130-400); Red Blood Cell Count 3.15 10^6/uL (4.70-6.10); White Blood Cell Count 4.2 10^3/uL (4.8-10.8)
--- NOTE | 2024-02-25 09:46 | W.PN.CD ---
Today's Communication / Plan
-
Continue diuresis
Impression / Plan
-
Background: 63M with HFpEF, PAD with BKA, DM, HTN, ETOH cirrhosis, anemia, CKD, HLD, obesity, tachy-kayleigh syndrome with pacemaker, SVT, chronic LE lymphedema presents with massive volume overload and recurrent SVT.
Production Planning Supervisor: Dr Mcfarland
HFpEF: acute on chronic, severe
-Severe in that his weight is up 70 lbs from August and he has severe LE edema (of note, he also has chronic lymphedema too)
-In August, his weight was approximately 106 kg when he was admitted here (admit weight 141 kg)
-Continue spironolactone 25mg daily and Jardiance 10mg daily (new, no co-pay)
-Continue Bumex 1mg IV BID, with close monitoring of labs and telemetry
-Metolazone 5 mg was given yesterday which resulted in a significant decline in weight if correct (136kg -> 128kg), which appears correct given an output of 5 L per documentation
pSVT
-Patient has known PSVT and was previously on sotalol for this. He is no longer on it and thinks his nursing unit clerk stopped it, but details unknown. He is minimally symptomatic with it.
-Continue metoprolol, dose increased. Follow telemetry: now at Toprol XL 50mg BID
Anemia, of chronic disease
CKD, noted in history, but normal Cr/GFR so far
PPM, [employer] (implanted 09/2022) stable on telemetry, remains A paced
Lymphedema, chronic
PAD status post left BKA
EtOH cirrhosis
Subjective:
'My legs feel perforator operator.'
Physical Exam
Vital Signs/Labs
Vital Signs
Temp Pulse Resp BP Pulse Ox
97.9 F 63 18 137/70 96
02/25/24 07:00 02/25/24 07:00 02/25/24 07:00 02/25/24 07:00 02/25/24 07:00
02/24/24 02/25/24 02/26/24
06:59 06:59 06:59
Actual Weight 136.134 kg 128.423 kg
02/25/24 08:39
Magnesium 2.0 mg/dl (1.6-2.3) 02/24/24 09:27
TSH 4.34 uIU/ml (0.47-4.68) 02/20/24 14:37
02/20/24
14:37
Vad-D-Jpygzmnjnmr Pept 1370
Physical Exam
Constitutional: No acute distress and Comfortable
EENT: Anicteric and Moist mucous membranes
Cardiovascular: Rhythm & rate is regular, Pedal edema present, S1S2 is normal and Murmur/rub/gallop absent
Respiratory: Respiratory effort normal and Lungs clear to auscul.
GI: Soft, Distention absent, Flat and Non tender
Neuro/Psych: AO x 3
Other: Skin (warm and dry)
Data Reviewed
-
Date of Service: February 25, 2024
Labs: Labs Reviewed by me
[2024-02-25] MEDS: NOVOLOG FLEXPEN-MODERATE RESISTANCE SC ×4 (09:54→17:36)
[2024-02-25] MEDS: NOVOLOG FLEXPEN SC ×3 (09:54→17:36)
[2024-02-25] MEDS: MAGNESIUM OXIDE 500 MG PO (09:55)
[2024-02-25] MEDS: JARDIANCE 10 MG PO (09:55)
[2024-02-25] MEDS: XIFAXAN 550 MG PO ×2 (09:55→19:57)
[2024-02-25] MEDS: ASPIR LOW (ENTERIC COATED) 81 MG PO (09:55)
[2024-02-25 09:56] LABS: Blood Urea Nitrogen 45 mg/dl (9-20); Carbon Dioxide 31 mmol/L (22-30); Chloride 98 mmol/L (98-107); Estimated Creatinine Clearance 82 ml/min; Glucose 154 mg/dl (70-99); Sodium 135 mmol/L (135-145); eGFR > 60.00
[2024-02-25] MEDS: ALDACTONE 25 MG PO (09:56)
[2024-02-25] MEDS: BUMEX 1 MG IV ×2 (09:56→17:43)
[2024-02-25] MEDS: ROCALTROL 0.25 MCG PO (09:57)
[2024-02-25] MEDS: SANTYL OINTMENT 1 APPLIC TOPICAL (09:57)
[2024-02-25] MEDS: KCL 20 MEQ PO (09:57)
[2024-02-25] MEDS: TOPROL XL 50 MG PO ×2 (09:57→19:57)
[2024-02-25] MEDS: NEURONTIN 300 MG PO ×2 (09:58→19:58)
[2024-02-25] MEDS: THERAGRAN 1 TABLET PO (09:58)
[2024-02-25] MEDS: LANTUS 0.6 UNITS SC (10:03)
[2024-02-25] MEDS: HYDROPHOR 1 APPLIC TOPICAL (10:07)
[2024-02-25] MEDS: COLACE 100 MG PO ×2 (10:22→19:57)
--- NOTE | 2024-02-25 11:36 | W.PN.HOSP.TC ---
Today's Communication/Plan
-
Continue with IV diuretics and GDMT
Trend daily BMP
Trial of void before DC
Assessment / Plan
Assessment / Plan
#Acute on chronic HFpEF
-Last LVEF 55 to 60% in 2022; Home meds include metoprolol succinate; no GDMT PTO
-Diuretic regimen includes Bumex twice daily and metolazone for sequential nephron blockade
-Decompensated from missing 4 days of Bumex, says pharmacy was out of stock
-Repeat TTE here shows LVEF 65%, mild LVH, mild pulmonary hypertension
-Improving clinically; I/Os net -4 L daily, suspect weight readings are inaccurate
-warm and wet phenotype, mildly hypervolemic at this point
Plan
-Continue with IV Bumex 1 mg BID, metolazone 5 mg on ; follow-up morning BMP
-GDMT: Spironolactone 25 mg daily, Jardiance 10 mg daily; uptitrate MRA as hemodynamics permit
-monitor I's and O's, monitor weights, trend BMP daily for renal function
-Monitor respiratory status
#Urinary retention
-Was found to have 800 mL urine retained which required straight cath
-Currently on tamsulosin, unclear if related to BPH or other cause of obstruction
Plan
-Plan for trial of void when euvolemic
-Continue tamsulosin
#Paroxysmal SVT
-Chronic issue, was previously on sotalol per cardiology; stopped by his outpatient title camera operator
-Had a run of tachycardia overnight on telemetry, minimally symptomatic with events
-Heart rate has appeared stable on higher dose of metoprolol succinate (50 mg twice daily)
#PAD s/p left BKA
#Hyperlipidemia
-Home medications include high intensity statin and aspirin
-No signs of CLI or poor perfusion right now
#Alcoholic cirrhosis
#Chronic thrombocytopenia -- platelet baseline 70-90
-MELD-Na 11; complicated by HE, on lactulose and Xifaxan
-Ultrasound here did not show significant degree of ascites
-Seems fairly well compensated
#CKD 3A
-Unclear etiology, likely related to diabetes and hypertensive history
-Most recently his renal function was normal, EGFR >60
-Will continue to trend BMP as above
#IDDM
-No recent A1c on record; C/B PAD and peripheral neuropathy
-Home medications include NovoLog and Tresiba; ISS added on admission
-Blood glucose has been well-controlled here with current regimen
#Hypothyroidism
-Unclear etiology, no known iatrogenic causes
-Home regimen includes levothyroxine 137 mcg daily
#Anemia of chronic disease
-Secondary to the above issues; hemoglobin baseline near 9-10
-Hemoglobin on arrival was 9.8, no obvious signs of bleeding, CBC stable
#Chronic pain syndrome
-Will continue with home medication regimen for analgesia
#S/p PPM
-Patient unsure medication sounds like SSS/tachybradycardia syndrome
-Scar is well-healed, no signs of dysfunction with
#Morbid obesity -- BMI 45
-BMI may be inaccurate in the context of excessive hypervolemia
-Still has obese habitus, recommend diet/exercise as he tolerates
DVT prophylaxis: Lovenox
Diet: House, 2 g sodium restricted
CODE STATUS: Full code
Anticipated Discharge: 24 - 48 hours
Subjective/Interval History
-
Date of Service: February 25, 2024
No acute events. He states he feels well today, in good spirits yet again. No chest pain, shortness of breath, fevers or chills, nausea/vomiting/diarrhea, urinary issues, paresthesias, significant pain, abnormal bleeding or bruising per review of
systems today.
Continues to feel lead fabricator in weight every day, abdomen seems less distended and overall seems closer to euvolemia by the day
Objective Data
-
Labs:
Laboratory Results
02/25/24
08:39
WBC 4.2 L
Hgb 9.7 L
Hct 28.7 L
Plt Count 83 L
Sodium 135
Potassium 4.0
Chloride 98
Carbon Dioxide 31 H
BUN 45 H
Creatinine 1.2
Glucose 154 H
Calcium 9.0
Vital Signs:
Vital Signs
Temp Pulse Resp BP Pulse Ox
97.9 F 63 18 137/70 96
02/25/24 07:00 02/25/24 09:56 02/25/24 07:00 02/25/24 09:56 02/25/24 07:00
I&O
02/24/24 02/25/24 02/26/24
06:59 06:59 06:59
Intake Total 1800 / 1800 1440 / 1440
Output Total 5900 / 5900 5400 / 5400
Balance -4100 / -4100 -3960 / -3960
Review of Systems
-
History Source: Patient
All other systems: Reviewed and negative
Physical Exam
-
General: Well Nourished, No Apparent Distress and Comfortable
HEENT: Normocephalic, Atraumatic, Moist Mucous Membranes and Anicteric
Respiratory: Rales (Trace, bibasilar) and Non Labored Respirations; Negative Wheezes or Rhonchi
Cardiac: Regular Rhythm, S1/S2 and JVD (Trace, improving); Negative Murmur, Rub or Gallop
GI: Soft, Nontender, Normal Bowel Sounds and Distended (Minimally distended today)
Musculoskeletal: No Clubbing, No Cyanosis and Other (Left-sided BKA present; 1+ pitting edema)
Skin: Warm and Dry; Negative Rash or Jaundice
Neuro: AO x 3, Nonfocal/Grossly Intact and Central Nerve's Intact; Negative Tremors
Data Reviewed
-
Labs: Labs Reviewed by me and Discussed with Patient
[2024-02-25 12:08] LABS: Glucose - Point of Care 203 mg/dl (70-99)
[2024-02-25] MEDS: NOVOLOG FLEXPEN 10 UNITS SC (12:11)
[2024-02-25 15:00] VITALS: BP 155/73
[2024-02-25 17:09] LABS: Glucose - Point of Care 133 mg/dl (70-99)
[2024-02-25] MEDS: LOVENOX 40 MG SC (17:44)
[2024-02-25] MEDS: VITAMIN B-12 1000 MCG PO (17:47)
[2024-02-25 19:33] VITALS: BP 134/61
[2024-02-25] MEDS: LIPITOR 40 MG PO (19:58)
[2024-02-25] MEDS: FLOMAX 0.4 MG PO (20:01)
[2024-02-25 21:09] LABS: Glucose - Point of Care 182 mg/dl (70-99)
[2024-02-25 23:26] VITALS: BP 135/60
[2024-02-26 03:04] VITALS: BP 127/58
[2024-02-26 06:00] VITALS: BMI 41.0
[2024-02-26] MEDS: SYNTHROID 137 MCG PO (06:33)
[2024-02-26 07:16] LABS: Glucose - Point of Care 83 mg/dl (70-99)
[2024-02-26] MEDS: NOVOLOG FLEXPEN-MODERATE RESISTANCE SC (07:47)
[2024-02-26 07:50] VITALS: BP 131/54
[2024-02-26 08:30] LABS: Blood Urea Nitrogen 51 mg/dl (9-20); Calcium 9.4 mg/dl (8.4-10.2); Carbon Dioxide 31 mmol/L (22-30); Chloride 100 mmol/L (98-107); Estimated Creatinine Clearance 74 ml/min; Glucose 106 mg/dl (70-99); Sodium 137 mmol/L (135-145); eGFR > 60.00
[2024-02-26] MEDS: NOVOLOG FLEXPEN 10 UNITS SC (08:51)
[2024-02-26] MEDS: LANTUS 0.6 UNITS SC (08:52)
[2024-02-26] MEDS: THERAGRAN 1 TABLET PO (08:53)
[2024-02-26] MEDS: SANTYL OINTMENT 1 APPLIC TOPICAL (08:53)
[2024-02-26] MEDS: MAGNESIUM OXIDE 500 MG PO (08:53)
[2024-02-26] MEDS: KCL 20 MEQ PO (08:54)
[2024-02-26] MEDS: XIFAXAN 550 MG PO ×2 (08:54→20:03)
[2024-02-26] MEDS: JARDIANCE 10 MG PO (08:54)
[2024-02-26] MEDS: BUMEX 1 MG IV ×2 (08:54→15:09)
[2024-02-26] MEDS: ROCALTROL 0.25 MCG PO (08:54)
[2024-02-26] MEDS: NEURONTIN 300 MG PO ×2 (08:54→20:04)
[2024-02-26] MEDS: ALDACTONE 25 MG PO (08:54)
[2024-02-26] MEDS: TOPROL XL 50 MG PO ×2 (08:54→20:04)
[2024-02-26] MEDS: ASPIR LOW (ENTERIC COATED) PO (08:55)
[2024-02-26] MEDS: HYDROPHOR 1 APPLIC TOPICAL (08:56)
[2024-02-26] MEDS: ROXICODONE 10 MG PO ×2 (09:45→18:31)
--- NOTE | 2024-02-26 10:30 | W.PN.HOSP.TC ---
Today's Communication/Plan
-
Continue IV diuretics for now, anticipate transition to oral soon
Continue to trend daily BMP
Reduce mealtime insulin to 5 units, encourage ISS for additional coverage
Trial of void overnight
Assessment / Plan
Assessment / Plan
#Acute on chronic HFpEF
-Last LVEF 55 to 60% in 2022; Home meds include metoprolol succinate; no GDMT PTO
-Diuretic regimen includes Bumex twice daily and metolazone for sequential nephron blockade
-Decompensated from missing 4 days of Bumex, says pharmacy was out of stock
-Repeat TTE here shows LVEF 65%, mild LVH, mild pulmonary hypertension
-Improving clinically; I/Os net -4 L daily, suspect weight readings are inaccurate
-warm and wet phenotype, renal function showing bump in BUN, as well as Cr
-Anticipate he can be transitioned to oral diuretics within the next day or 2
Plan
-Continue with IV Bumex 1 mg BID, metolazone 5 mg on /; plan to transition to oral Bumex soon
-GDMT: Spironolactone 25 mg daily, Jardiance 10 mg daily; uptitrate MRA as hemodynamics permit
-monitor I's and O's, monitor weights, trend BMP daily for renal function
-Monitor respiratory status
#Urinary retention
-Was found to have 800 mL urine retained which required straight cath
-Currently on tamsulosin, unclear if related to BPH or other cause of obstruction
Plan
-Plan for trial of void tonight
-Continue with tamsulosin
#IDDM
-Type 2 diabetes; no recent A1c on record; C/B PAD and peripheral neuropathy
-Home medications listed she will insulin degludec 60U QD, insulin aspart 18U AC
-On arrival was transition to ISS; mealtime insulin to 10 units with long-acting at 60U
-Glucose well-controlled without ISS need (patient has refused), glucose <100 today
Plan
-Reduced mealtime insulin to 5 units
-Encourage sliding scale with additional insulin needed
-Continue with long-acting insulin at 60 units
#Paroxysmal SVT
-Chronic issue, was previously on sotalol per cardiology; stopped by his outpatient coverstitch elastic attacher
-Had a run of tachycardia overnight on telemetry, minimally symptomatic with events
-Heart rate has appeared stable on higher dose of metoprolol succinate (50 mg twice daily)
#PAD s/p left BKA
#Hyperlipidemia
-Home medications include high intensity statin and aspirin
-No signs of CLI or poor perfusion right now
#Alcoholic cirrhosis
#Chronic thrombocytopenia -- platelet baseline 70-90
-MELD-Na 11; complicated by HE, on lactulose and Xifaxan
-Ultrasound here did not show significant degree of ascites
-Seems fairly well compensated
#CKD 3A
-Unclear etiology, likely related to diabetes and hypertensive history
-Most recently his renal function was normal, EGFR >60
-Will continue to trend BMP as above
#Hypothyroidism
-Unclear etiology, no known iatrogenic causes
-Home regimen includes levothyroxine 137 mcg daily
#Anemia of chronic disease
-Secondary to the above issues; hemoglobin baseline near 9-10
-Hemoglobin on arrival was 9.8, no obvious signs of bleeding, CBC stable
#Chronic pain syndrome
-Will continue with home medication regimen for analgesia
#S/p PPM
-Patient unsure medication sounds like SSS/tachybradycardia syndrome
-Scar is well-healed, no signs of dysfunction with
#Morbid obesity -- BMI 45
-BMI may be inaccurate in the context of excessive hypervolemia
-Still has obese habitus, recommend diet/exercise as he tolerates
DVT prophylaxis: Lovenox
Diet: House, 2 g sodium restricted
CODE STATUS: Full code
Anticipated Discharge: Within 24 hours
Subjective/Interval History
-
Date of Service: February 26, 2024
No acute events overnight. He states he feels well, continues to feel like her every day. Able to lift his leg off of the bed today.
He denies any chest pain, shortness of breath, fevers or chills, urinary issues, his gastrointestinal issues, abnormal bleeding or bruising, paresthesias or weakness.
He does have questions about his insulin, concerns that his blood glucose gets down to near 100, has been lower once while here. Has refused insulin sliding scale coverage. Blood glucose, still remains consistently less than 200 over the course of
the hospital stay.
Objective Data
-
Labs:
Laboratory Results
02/26/24
08:08
Sodium 137
Potassium 4.0
Chloride 100
Carbon Dioxide 31 H
BUN 51 H
Creatinine 1.3
Glucose 106 H
Calcium 9.4
Vital Signs:
Vital Signs
Temp Pulse Resp BP Pulse Ox
97.8 F 62 16 131/54 97
02/26/24 07:50 02/26/24 07:50 02/26/24 07:50 02/26/24 07:50 02/26/24 07:50
I&O
02/25/24 02/26/24 02/27/24
06:59 06:59 06:59
Intake Total 1440 / 1440 600 / 600
Output Total 5400 / 5400 5900 / 5900
Balance -3960 / -3960 -5300 / -5300
Review of Systems
-
History Source: Patient
All other systems: Reviewed and negative
Physical Exam
-
General: No Apparent Distress, Comfortable and Obese
HEENT: Normocephalic, Atraumatic, Moist Mucous Membranes and Anicteric
Respiratory: Rales (Trace, bibasilar) and Non Labored Respirations; Negative Wheezes, Rhonchi or Accessory Resp Muscle Use
Cardiac: Regular Rhythm, S1/S2 and JVD; Negative Murmur, Rub or Gallop
GI: Soft, Nontender, Nondistended and Normal Bowel Sounds
Musculoskeletal: No Clubbing and No Cyanosis; Negative No Edema (Trace lower extremity edema)
Skin: Warm and Dry; Negative Rash
Neuro: AO x 3, Nonfocal/Grossly Intact and Central Nerve's Intact
Data Reviewed
-
Labs: Labs Reviewed by me and Discussed with Patient
[2024-02-26 11:19] VITALS: BP 129/62
[2024-02-26 11:28] LABS: Glucose - Point of Care 197 mg/dl (70-99)
[2024-02-26] MEDS: NOVOLOG FLEXPEN-MODERATE RESISTANCE 1 UNITS SC ×2 (11:42→17:02)
[2024-02-26] MEDS: NOVOLOG FLEXPEN 5 UNITS SC ×2 (11:42→17:03)
--- NOTE | 2024-02-26 14:41 | W.PN.CD ---
Today's Communication / Plan
-
continue IV diuresis
Impression / Plan
-
Background: 63M with HFpEF, PAD with BKA, DM, HTN, ETOH cirrhosis, anemia, CKD, HLD, obesity, tachy-kayleigh syndrome with pacemaker, SVT, chronic LE lymphedema presents with massive volume overload and recurrent SVT.
Door Framer: Dr Mcfarland
HFpEF: acute on chronic, severe
-Severe in that his weight is up 70 lbs from August and he has severe LE edema (of note, he also has chronic lymphedema too)
-In August, his weight was approximately 106 kg when he was admitted here (admit weight 141 kg)
-Continue spironolactone 25mg daily and Jardiance 10mg daily (new, no co-pay)
-Continue Bumex 1mg IV BID, with close monitoring of labs and telemetry
-Metolazone 5 mg was given 02/24/24
-Wt down to 122.5kg today
pSVT
-Patient has known PSVT and was previously on sotalol for this. He is no longer on it and thinks his novelty printing machine operator stopped it, but details unknown. He is minimally symptomatic with it.
-Continue metoprolol, dose increased. Follow telemetry: now at Toprol XL 50mg BID
Anemia, of chronic disease
CKD, noted in history, but normal Cr/GFR so far
PPM, [employer] (implanted 09/2022) stable on telemetry, remains A paced
Lymphedema, chronic
PAD status post left BKA
EtOH cirrhosis
Subjective:
Physical Exam
Vital Signs/Labs
Vital Signs
Temp Pulse Resp BP Pulse Ox
97.7 F 61 18 129/62 95
02/26/24 11:19 02/26/24 11:19 02/26/24 11:19 02/26/24 11:19 02/26/24 11:19
02/25/24 02/26/24 02/27/24
06:59 06:59 06:59
Actual Weight 128.423 kg 122.271 kg
02/25/24 08:39
02/26/24 08:08
Magnesium 2.0 mg/dl (1.6-2.3) 02/25/24 08:39
TSH 4.34 uIU/ml (0.47-4.68) 02/20/24 14:37
02/20/24
14:37
Xyb-B-Ugkzglybffp Pept 1370
Physical Exam
Constitutional: No acute distress
Cardiovascular: Rhythm & rate is regular and Pedal edema present (2+ with chronic skin changes of lymphedema)
Respiratory: Respiratory effort normal and Crackles Present (Bibasilar)
Neuro/Psych: AO x 3
Data Reviewed
-
Date of Service: February 26, 2024
Medical Decision Making: Review of Case with other Provider (Telemetry with sinus rhythm no SVT)
[2024-02-26 15:15] VITALS: BP 140/67
[2024-02-26 16:42] LABS: Glucose - Point of Care 190 mg/dl (70-99)
[2024-02-26] MEDS: LOVENOX 40 MG SC (17:03)
[2024-02-26] MEDS: VITAMIN B-12 1000 MCG PO (17:03)
[2024-02-26 19:15] VITALS: BP 137/63
[2024-02-26] MEDS: LIPITOR 40 MG PO (20:04)
[2024-02-26] MEDS: FLOMAX 0.4 MG PO (20:04)
[2024-02-26 21:36] LABS: Glucose - Point of Care 188 mg/dl (70-99)
[2024-02-26 23:40] VITALS: BP 156/62
[2024-02-27] VITALS (7 sets, daily range): BP systolic 141–165; BP diastolic 61–79; PULSE 64; O2SAT 95; BMI 40.5
[2024-02-27] MEDS: SYNTHROID 137 MCG PO (05:50)
--- NOTE | 2024-02-27 06:46 | PTCARENOTE ---
Arben DCed at 0600 per order. Pt. is DTV by 1400. Plan of care continues.
[2024-02-27 07:56] LABS: Glucose - Point of Care 158 mg/dl (70-99)
[2024-02-27] MEDS: LANTUS 0.6 UNITS SC (07:58)
[2024-02-27] MEDS: SANTYL OINTMENT 1 APPLIC TOPICAL (07:58)
[2024-02-27] MEDS: NOVOLOG FLEXPEN-MODERATE RESISTANCE 1 UNITS SC ×2 (07:59→16:50)
[2024-02-27] MEDS: ROCALTROL 0.25 MCG PO (08:00)
[2024-02-27] MEDS: JARDIANCE 10 MG PO (08:00)
[2024-02-27] MEDS: ASPIR LOW (ENTERIC COATED) 81 MG PO (08:00)
[2024-02-27] MEDS: ALDACTONE 25 MG PO (08:00)
[2024-02-27] MEDS: NOVOLOG FLEXPEN 5 UNITS SC ×3 (08:00→16:50)
[2024-02-27] MEDS: MAGNESIUM OXIDE 500 MG PO (08:01)
[2024-02-27] MEDS: NEURONTIN 300 MG PO ×2 (08:01→20:03)
[2024-02-27] MEDS: BUMEX 1 MG IV ×2 (08:01→16:48)
[2024-02-27] MEDS: XIFAXAN 550 MG PO ×2 (08:01→20:02)
[2024-02-27] MEDS: TOPROL XL 50 MG PO ×2 (08:01→20:02)
[2024-02-27] MEDS: THERAGRAN 1 TABLET PO (08:01)
[2024-02-27] MEDS: KCL 20 MEQ PO (08:01)
[2024-02-27] MEDS: HYDROPHOR 1 APPLIC TOPICAL (08:02)
[2024-02-27] MEDS: ROXICODONE 10 MG PO ×2 (08:16→21:56)
--- NOTE | 2024-02-27 08:39 | W.PN.HOSP.TC ---
Today's Communication/Plan
-
Continue IV Bumex and beta marcus
Assessment / Plan
Assessment / Plan
Physical Exam
General: No Apparent Distress, Comfortable and Obese
HEENT: Normocephalic, Atraumatic, Moist Mucous Membranes and Anicteric
Respiratory: Rales (Trace, bibasilar) and Non Labored Respirations; Negative Wheezes, Rhonchi or Accessory Resp Muscle Use
Cardiac: Regular Rhythm, S1/S2 and JVD; Negative Murmur, Rub or Gallop
GI: Soft, Nontender, Nondistended and Normal Bowel Sounds
Musculoskeletal: No Clubbing and No Cyanosis; Negative No Edema (Trace lower extremity edema)
Skin: Warm and Dry; Negative Rash
Neuro: AO x 3, Nonfocal/Grossly Intact and Central Nerve's Intact
Assessment/Plan
#Acute on chronic HFpEF
-Last LVEF 55 to 60% in 2022; Home meds include metoprolol succinate; no GDMT PTO
-Diuretic regimen includes Bumex twice daily and metolazone for sequential nephron blockade
-Decompensated from missing 4 days of Bumex, says pharmacy was out of stock
-Repeat TTE here shows LVEF 65%, mild LVH, mild pulmonary hypertension
-Improving clinically; I/Os net -4 L daily, suspect weight readings are inaccurate
-warm and wet phenotype, renal function showing bump in BUN, as well as Cr
-Continue Bumex 1mg IV BID, with close monitoring of labs and telemetry
Plan
-Continue with IV Bumex 1 mg BID, metolazone 5 mg on ; plan to transition to oral Bumex soon
-GDMT: Spironolactone 25 mg daily, Jardiance 10 mg daily; uptitrate MRA as hemodynamics permit
-monitor I's and O's, monitor weights, trend BMP daily for renal function
-Monitor respiratory status
#Urinary retention
-Was found to have 800 mL urine retained which required straight cath
-Currently on tamsulosin, unclear if related to BPH or other cause of obstruction
Plan
-Trial of void
-Continue with tamsulosin
#IDDM
-Type 2 diabetes; no recent A1c on record; C/B PAD and peripheral neuropathy
-Home medications listed she will insulin degludec 60U QD, insulin aspart 18U AC
-On arrival was transition to ISS; mealtime insulin to 10 units with long-acting at 60U
-Glucose well-controlled without ISS need (patient has refused), glucose <100 today
Plan
-Reduced mealtime insulin to 5 units
-Encourage sliding scale with additional insulin needed
-Continue with long-acting insulin at 60 units
#Paroxysmal SVT
-Chronic issue, was previously on sotalol per cardiology; stopped by his outpatient cardroom hand
-Had a run of tachycardia overnight on telemetry, minimally symptomatic with events
-Heart rate has appeared stable on higher dose of metoprolol succinate (50 mg twice daily)
#PAD s/p left BKA
#Hyperlipidemia
-Home medications include high intensity statin and aspirin
-No signs of CLI or poor perfusion right now
#Alcoholic cirrhosis
#Chronic thrombocytopenia -- platelet baseline 70-90
-MELD-Na 11; complicated by HE, on lactulose and Xifaxan
-Ultrasound here did not show significant degree of ascites
-Seems fairly well compensated
#CKD 3A
-Unclear etiology, likely related to diabetes and hypertensive history
-Most recently his renal function was normal, EGFR >60
-Will continue to trend BMP as above
#Hypothyroidism
-Unclear etiology, no known iatrogenic causes
-Home regimen includes levothyroxine 137 mcg daily
#Anemia of chronic disease
-Secondary to the above issues; hemoglobin baseline near 9-10
-Hemoglobin on arrival was 9.8, no obvious signs of bleeding, CBC stable
#Chronic pain syndrome
-Will continue with home medication regimen for analgesia
#S/p PPM
-Patient unsure medication sounds like SSS/tachybradycardia syndrome
-Scar is well-healed, no signs of dysfunction with
#Morbid obesity -- BMI 45
-BMI may be inaccurate in the context of excessive hypervolemia
-Still has obese habitus, recommend diet/exercise as he tolerates
DVT prophylaxis: Lovenox
Diet: House, 2 g sodium restricted
CODE STATUS: Full code
Anticipated Discharge: 24 - 48 hours
Subjective/Interval History
-
Date of Service: February 27, 2024
Patient was seen and examined. He reported his shortness of breath is better overall.
Objective Data
-
Vital Signs:
Vital Signs
Temp Pulse Resp BP Pulse Ox
98.9 F 65 18 141/65 96
02/27/24 07:33 02/27/24 07:33 02/27/24 07:33 02/27/24 08:00 02/27/24 07:33
I&O
02/26/24 02/27/24 02/28/24
06:59 06:59 06:59
Intake Total 600 / 600 1560 / 1560
Output Total 5900 / 5900 5150 / 5150
Balance -5300 / -5300 -3590 / -3590
[2024-02-27 11:15] LABS: Glucose - Point of Care 236 mg/dl (70-99)
[2024-02-27] MEDS: NOVOLOG FLEXPEN-MODERATE RESISTANCE 3 UNITS SC (12:03)
--- NOTE | 2024-02-27 13:12 | WOUNDNOTE ---
WON RN NOTE: Followed up today for reported PI on L buttock. Patient remains on an air mattress, patient can turn self. Getting oob to recliner chair. Asked nurse Martell to bring in air cushion for chair.L buttock with superficial blister, pink base
with streaks of maroon surrounding. Patient states he felt pain there over the weekend. Patient confirmed that he does use bedpan when needed. Suspect that patient developed blister stage 2, from bedpan and the fact that he is on blood thinners
causing red escobar. Adaptic and silicone foam applied. Repositioned patient onto R semi side lying position. Encouraged patient to turn to sides q few hours. Appetite is good patient states, just always hungry. L BKA wound appears casting cleaner compared to
last week. R heel intact foam adhesive in use. Pillows placed under stump and R leg. Moisturized skin on legs with mineral oil, dressing changed and clementina wraps applied. RN updated on the above, will follow as needed.
--- NOTE | 2024-02-27 13:33 | W.PN.CD ---
Today's Communication / Plan
-
Continue IV diuresis
Impression / Plan
-
Background: 63M with HFpEF, PAD with left BKA, DM, HTN, ETOH cirrhosis, anemia, CKD, HLD, obesity, tachy-kayleigh syndrome with pacemaker, SVT, chronic LE lymphedema presents with massive volume overload and recurrent SVT. Construction Craft Laborer: Dr Mcfarland
HFpEF: acute on chronic, severe, admitted 70 lbs over weight of Aug 2023, goal weight about 106 kg
- Today 120.8 kg, down almost 1.4 kg in one day
- Continue spironolactone 25mg daily (currently also on KCl) and Jardiance 10mg daily (new, no co-pay)
- Continue Bumex 1mg IV BID, with close monitoring of labs and telemetry
- Metolazone 5 mg was given 02/21/2024 and 02/24/2024 and is scheduled for Tu and Fr
Known PSVT, previously on sotalol. Minimally symptomatic => Toprol XL 50mg BID
Anemia, of chronic disease
CKD, noted in history, but normal Cr/GFR so far
PPM, Medtronic (implanted 09/2022) stable on telemetry, remains A paced
Lymphedema, chronic
PAD status post left BKA
EtOH cirrhosis
Subjective:
Feeling better.
Physical Exam
Vital Signs/Labs
Vital Signs
Temp Pulse Resp BP Pulse Ox
97.8 F 61 20 145/65 96
02/27/24 11:07 02/27/24 11:07 02/27/24 11:07 02/27/24 11:07 02/27/24 11:07
02/26/24 02/27/24 02/28/24
06:59 06:59 06:59
Actual Weight 122.271 kg 120.854 kg
02/25/24 08:39
02/26/24 08:08
Magnesium 2.0 mg/dl (1.6-2.3) 02/25/24 08:39
TSH 4.34 uIU/ml (0.47-4.68) 02/20/24 14:37
02/20/24
14:37
[id number] Pept 1370
Data Reviewed
-
Date of Service: February 27, 2024
--- NOTE | 2024-02-27 14:56 | CM ---
Patient continues with IV diuresis.
Arben discontinued this am.
Plan: Back to [facility] when stable with [facility].
[2024-02-27 16:33] LABS: Glucose - Point of Care 198 mg/dl (70-99)
[2024-02-27] MEDS: VITAMIN B-12 1000 MCG PO (17:42)
[2024-02-27] MEDS: LOVENOX 40 MG SC (17:42)
[2024-02-27] MEDS: LIPITOR 40 MG PO (20:02)
[2024-02-27] MEDS: FLOMAX 0.4 MG PO (20:02)
[2024-02-27 20:11] LABS: Blood Urea Nitrogen 57 mg/dl (9-20); Calcium 9.7 mg/dl (8.4-10.2); Carbon Dioxide 30 mmol/L (22-30); Chloride 98 mmol/L (98-107); Estimated Creatinine Clearance 74 ml/min; Glucose 125 mg/dl (70-99); Magnesium 2.1 mg/dl (1.6-2.3); Potassium 4.1 mmol/L (3.5-5.1); Sodium 136 mmol/L (135-145); eGFR > 60.00
[2024-02-27 21:12] LABS: Glucose - Point of Care 160 mg/dl (70-99)
[2024-02-28 03:10] VITALS: BP 141/70
[2024-02-28] MEDS: SYNTHROID 137 MCG PO (05:53)
[2024-02-28 06:25] VITALS: BMI 39.9
[2024-02-28 07:53] VITALS: BP 146/71
[2024-02-28 07:54] LABS: Glucose - Point of Care 187 mg/dl (70-99)
[2024-02-28] MEDS: NOVOLOG FLEXPEN 5 UNITS SC ×3 (08:02→17:10)
[2024-02-28] MEDS: NOVOLOG FLEXPEN-MODERATE RESISTANCE 1 UNITS SC (08:03)
[2024-02-28] MEDS: ASPIR LOW (ENTERIC COATED) 81 MG PO (08:04)
[2024-02-28] MEDS: ALDACTONE 25 MG PO (08:04)
[2024-02-28] MEDS: XIFAXAN 550 MG PO ×2 (08:04→20:46)
[2024-02-28] MEDS: NEURONTIN 300 MG PO ×2 (08:04→20:46)
[2024-02-28] MEDS: THERAGRAN 1 TABLET PO (08:04)
[2024-02-28] MEDS: MAGNESIUM OXIDE 500 MG PO (08:04)
[2024-02-28] MEDS: KCL 20 MEQ PO (08:04)
[2024-02-28] MEDS: LANTUS 0.6 UNITS SC (08:04)
[2024-02-28] MEDS: TOPROL XL 50 MG PO ×2 (08:04→20:47)
[2024-02-28] MEDS: JARDIANCE 10 MG PO (08:04)
[2024-02-28] MEDS: HYDROPHOR 1 APPLIC TOPICAL (08:04)
[2024-02-28] MEDS: ROCALTROL 0.25 MCG PO (08:04)
[2024-02-28] MEDS: SANTYL OINTMENT 1 APPLIC TOPICAL (08:05)
[2024-02-28] MEDS: BUMEX 1 MG IV ×2 (08:05→15:44)
[2024-02-28] MEDS: ROXICODONE 10 MG PO ×3 (08:14→20:50)
[2024-02-28] MEDS: COLACE 100 MG PO ×2 (08:15→20:50)
--- NOTE | 2024-02-28 10:36 | W.PN.HOSP.TC ---
Today's Communication/Plan
-
Weight coming down
Continue diuresis
Continue Bladder Scan protocol -- likely will need Theodore Catheter replaced
Assessment / Plan
Assessment / Plan
Physical Exam
General: Not in acute distress
HEENT: Normocephalic
Respiratory: Rales (Trace, bibasilar) and Non Labored Respirations
Cardiac: Regular Rhythm, S1/S2 and JVD
GI: Soft, Nontender, Nondistended and Normal Bowel Sounds
Musculoskeletal: No Cyanosis; Negative No Edema (Trace lower extremity edema)
Skin: Warm and Dry
Neuro: AAO x 3, Nonfocal/Grossly Intact and Central Nerve's Intact
Assessment/Plan
#Acute on chronic HFpEF
-Last LVEF 55 to 60% in 2022; Home meds include metoprolol succinate; no GDMT PTO
-Diuretic regimen includes Bumex twice daily and metolazone for sequential nephron blockade
-Decompensated from missing 4 days of Bumex, says pharmacy was out of stock
-Repeat TTE here shows LVEF 65%, mild LVH, mild pulmonary hypertension
-Improving clinically; I/Os net -4 L daily, suspect weight readings are inaccurate
-warm and wet phenotype, renal function showed bump in BUN, as well as Creatinine
-Continue Bumex 1mg IV BID, with close monitoring of labs and telemetry
Plan
-Continue with IV Bumex 1 mg BID, metolazone 5 mg on ; plan to transition to oral Bumex soon
-GDMT: Spironolactone 25 mg daily, Jardiance 10 mg daily; uptitrate MRA as hemodynamics permit
-monitor I's and O's, monitor weights, trend BMP daily for renal function
-Monitor respiratory status
#Urinary retention
-Was found to have 800 mL urine retained which required straight cath
-Currently on tamsulosin, unclear if related to BPH or other cause of obstruction
Plan
-Trial of void: on 02/28/24, patient complained of difficulty urinating and severe abdominal pain, nurse bladder scanned him for 700 cc and drained 925 cc
-Resume Theodore Catheter as per Bladder Scan protocol
-Continue with tamsulosin
#IDDM
-Type 2 diabetes; no recent A1c on record; C/B PAD and peripheral neuropathy
-Home medications listed she will insulin degludec 60U QD, insulin aspart 18U AC
-On arrival was transition to ISS; mealtime insulin to 10 units with long-acting at 60U
-Glucose well-controlled without ISS need (patient has refused)
Plan
-Continue 5 units of premeal Insulin
-Encourage sliding scale with additional insulin needed
-Continue with long-acting insulin at 60 units
#Paroxysmal SVT
-Chronic issue, was previously on sotalol per cardiology; stopped by his outpatient popcorn vendor
-Heart rate has appeared stable on higher dose of metoprolol succinate (50 mg twice daily)
#PAD s/p left BKA
#Hyperlipidemia
-Home medications include high intensity statin and aspirin
-No signs of CLI or poor perfusion right now
#Alcoholic cirrhosis
#Chronic thrombocytopenia -- platelet baseline 70-90
-MELD-Na 11; complicated by HE, on lactulose and Xifaxan
-Ultrasound here did not show significant degree of ascites
-Seems fairly well compensated
#CKD 3A
-Unclear etiology, likely related to diabetes and hypertensive history
-Most recently his renal function was normal, EGFR >60
-Will continue to trend BMP as above
#Hypothyroidism
-Unclear etiology, no known iatrogenic causes
-Home regimen includes levothyroxine 137 mcg daily
#Anemia of chronic disease
-Secondary to the above issues; hemoglobin baseline near 9-10
-Hemoglobin on arrival was 9.8, no obvious signs of bleeding, CBC stable
#Chronic pain syndrome
-Will continue with home medication regimen for analgesia
#S/p PPM
-Patient unsure medication sounds like SSS/tachybradycardia syndrome
-Scar is well-healed, no signs of dysfunction with
#Morbid obesity -- BMI 45
-BMI may be inaccurate in the context of excessive hypervolemia
-Still has obese habitus, recommend diet/exercise as he tolerates
DVT prophylaxis: Lovenox
Diet: House, 2 g sodium restricted
CODE STATUS: Full code
Anticipated Discharge: > 48 hours
Subjective/Interval History
-
Date of Service: February 28, 2024
Patient was seen and examined. He reported that he may be having urinary retention.
Objective Data
-
Labs:
Laboratory Results
02/28/24
08:26
Sodium Pending
Potassium Pending
Chloride Pending
Carbon Dioxide Pending
BUN Pending
Creatinine Pending
Glucose Pending
Calcium Pending
Vital Signs:
Vital Signs
Temp Pulse Resp BP Pulse Ox
98.1 F 96 20 146/71 97
02/28/24 07:53 02/28/24 07:53 02/28/24 07:53 02/28/24 07:53 02/28/24 07:53
I&O
02/27/24 02/28/24 02/29/24
06:59 06:59 06:59
Intake Total 1560 / 1560 1320 / 1320
Output Total 5150 / 5150 3200 / 3200
Balance -3590 / -3590 -1880 / -1880
[2024-02-28 11:30] LABS: Glucose - Point of Care 283 mg/dl (70-99)
[2024-02-28] MEDS: NOVOLOG FLEXPEN-MODERATE RESISTANCE 5 UNITS SC ×2 (11:34→17:10)
[2024-02-28 11:45] VITALS: BP 147/71
--- NOTE | 2024-02-28 12:06 | W.PN.CD ---
Today's Communication / Plan
-
Continue diuresis
Follow kaila de la cruz, BUN/Cr, exam
Impression / Plan
-
Background: 63M with HFpEF, PAD with left BKA, DM, HTN, ETOH cirrhosis, anemia, CKD, HLD, obesity, tachy-kayleigh syndrome with pacemaker, SVT, chronic LE lymphedema presents with massive volume overload and recurrent SVT. Install And Repair Technician: Dr Mcfarland
HFpEF: acute on chronic, severe, admitted 70 lbs over weight of Aug 2023, goal weight about 106 kg
- Today 118.96 kg, down almost 1.9 kg in one day
- Continue spironolactone 25mg daily (currently also on KCl) and Jardiance 10mg daily (new, no co-pay)
- Continue Bumex 1mg IV BID, with close monitoring of labs and telemetry
- Metolazone 5 mg is scheduled for Tu and Fr
Known PSVT, previously on sotalol. Minimally symptomatic => Toprol XL 50mg BID
Anemia, of chronic disease
CKD, noted in history, but normal Cr/GFR so far
PPM, Medtronic (implanted 09/2022) stable on telemetry, remains A paced
Lymphedema, chronic
PAD status post left BKA
EtOH cirrhosis
Subjective:
Feeling better.
Physical Exam
Vital Signs/Labs
Vital Signs
Temp Pulse Resp BP Pulse Ox
97.9 F 61 20 147/71 97
02/28/24 11:45 02/28/24 11:45 02/28/24 11:45 02/28/24 11:45 02/28/24 11:45
02/27/24 02/28/24 02/29/24
06:59 06:59 06:59
Actual Weight 120.854 kg 118.955 kg
02/25/24 08:39
Magnesium 2.1 mg/dl (1.6-2.3) 02/27/24 19:42
TSH 4.34 uIU/ml (0.47-4.68) 02/20/24 14:37
02/20/24
14:37
[id number] Pept 1370
Physical Exam
Constitutional: No acute distress
EENT: Anicteric
Cardiovascular: Pedal edema present
Respiratory: Respiratory effort normal and Lungs clear to auscul.
GI: Soft and Distention absent
Neuro/Psych: Alert
Data Reviewed
-
Date of Service: February 28, 2024
[2024-02-28 12:56] LABS: Blood Urea Nitrogen 54 mg/dl (9-20); Calcium 9.6 mg/dl (8.4-10.2); Carbon Dioxide 29 mmol/L (22-30); Chloride 98 mmol/L (98-107); Estimated Creatinine Clearance 73 ml/min; Glucose 234 mg/dl (70-99); Potassium 3.8 mmol/L (3.5-5.1); Sodium 138 mmol/L (135-145); eGFR > 60.00
--- NOTE | 2024-02-28 14:21 | CM ---
Patient continues with IV diuresis.
Monitor labs.
PT recommending home care.
Plan: Back to [facility] when stable with [facility].
[2024-02-28] MEDS: ZAROXOLYN 5 MG PO (15:41)
[2024-02-28 15:43] VITALS: BP 156/69
[2024-02-28 16:01] LABS: Glucose - Point of Care 500 mg/dl (70-99)
[2024-02-28 16:50] LABS: Glucose 271 mg/dl (70-99)
[2024-02-28] MEDS: LOVENOX 40 MG SC (17:10)
[2024-02-28] MEDS: VITAMIN B-12 1000 MCG PO (17:10)
[2024-02-28 18:16] LABS: Glucose - Point of Care 293 mg/dl (70-99)
[2024-02-28 19:47] VITALS: BP 150/64
[2024-02-28] MEDS: FLOMAX 0.4 MG PO (20:46)
[2024-02-28] MEDS: LIPITOR 40 MG PO (20:46)
[2024-02-28 21:18] LABS: Glucose - Point of Care 298 mg/dl (70-99)
[2024-02-28 23:28] VITALS: BP 135/68
[2024-02-29 03:34] VITALS: BP 145/70
[2024-02-29] MEDS: SYNTHROID 137 MCG PO (05:58)
[2024-02-29 06:00] VITALS: BMI 39.3
[2024-02-29 07:28] LABS: Glucose - Point of Care 198 mg/dl (70-99)
[2024-02-29 08:09] VITALS: BP 142/67
--- NOTE | 2024-02-29 08:19 | PN.DE.MGMTRT ---
Insulin Management
- -
02/29/2024 Diabetes Management Consult
Patient admitted 02/19 with SOB, acute on chronic HFpEF. Consult for Diabetes Management 02/28. PMH CHF, PAD (LBKA), type 2 diabetes, HTN, HLD, ETOH cirrhosis, anemia, CKD, obesity, lymphedema, SVT, tachy/kayleigh syndrome with pacemaker. Prior to
admission was taking Jardiance 10 mg daily with novolog 14 to 16 units AC and Tresiba 60 units daily. Last A1C July 2022 7.4%, ordered this AM.
Patient is pleasant, awake, alert and oriented sitting up in bed. Able to discuss diabetes management. States he has had diabetes 25 years. He decides how much novolog to take based on his glucose pre meal and how much he will eat. The Tresiba
is always 60 units. He states he has a Epifanio 3 for glucose monitoring.
Early this admission glucose was fairly well controlled, patient frequently refused AC novolog. Glucose has trended as high as 298 in last 2 days receiving 5 units standing dose plus additional 5 units corrective, remaining high.
Will increase AC novolog to 10 units, continue lantus 60 units in AM daily. Will discuss with patient importance of receiving AC novolog if eating a meal, patient is agreeable.
Discussed with nurse.
Diabetes History
- -
Type of Diabetes: 2 requiring insulin
Pre-Admission Diabetes Regimen
02/28/24
10:46
Creatinine 1.3
Insulin Pump Settings
IP Diabetes Regimen
02/28/24 02/28/24 02/28/24
10:46 11:25 15:58
Glucose 234 H
POC Glucose 283 H 500 H*
02/28/24 02/28/24 02/28/24
15:59 18:14 21:09
Glucose 271 H
POC Glucose 293 H 298 H
02/29/24
07:17
Glucose
POC Glucose 198 H
Meal type: Lunch
Meal type: Breakfast
Amount consumed: 100%
Amount consumed: 100%
Patient Education
[2024-02-29] MEDS: NOVOLOG FLEXPEN 10 UNITS SC ×3 (08:58→17:17)
[2024-02-29] MEDS: NOVOLOG FLEXPEN-MODERATE RESISTANCE 1 UNITS SC (08:58)
[2024-02-29] MEDS: NEURONTIN 300 MG PO ×2 (08:59→20:52)
[2024-02-29] MEDS: LANTUS 0.6 UNITS SC (08:59)
[2024-02-29] MEDS: JARDIANCE 10 MG PO (09:00)
[2024-02-29] MEDS: KCL 20 MEQ PO (09:00)
[2024-02-29] MEDS: MAGNESIUM OXIDE 500 MG PO (09:00)
[2024-02-29] MEDS: ASPIR LOW (ENTERIC COATED) 81 MG PO (09:00)
[2024-02-29] MEDS: TOPROL XL 50 MG PO ×2 (09:00→20:52)
[2024-02-29] MEDS: ROCALTROL 0.25 MCG PO (09:00)
[2024-02-29] MEDS: THERAGRAN 1 TABLET PO (09:00)
[2024-02-29] MEDS: XIFAXAN 550 MG PO ×2 (09:00→20:52)
[2024-02-29] MEDS: ALDACTONE 25 MG PO (09:00)
[2024-02-29] MEDS: BUMEX 1 MG IV ×2 (09:01→15:24)
[2024-02-29] MEDS: SANTYL OINTMENT 1 APPLIC TOPICAL (09:01)
[2024-02-29] MEDS: ROXICODONE 10 MG PO ×2 (09:10→20:55)
[2024-02-29] MEDS: COLACE 100 MG PO ×2 (09:11→20:55)
[2024-02-29] MEDS: NOVOLOG FLEXPEN SC (09:15)
--- NOTE | 2024-02-29 10:37 | W.PN.HOSP.TC ---
Today's Communication/Plan
-
Continue IV diuresis, appreciate cardiology
Weights are coming down but still not near the goal weight
Continue Bladder Scans and monitor for urinary retention
Assessment / Plan
Assessment / Plan
Physical Exam
General: Not in acute distress
HEENT: Normocephalic
Respiratory: Rales (Trace, bibasilar) and Non Labored Respirations
Cardiac: Regular Rhythm, S1/S2 and JVD
GI: Soft, Nontender, Nondistended and Normal Bowel Sounds
Musculoskeletal: Bilateral lower extremity edema
Skin: Warm and Dry
Neuro: AAO x 3, Nonfocal/Grossly Intact and Central Nerve's Intact
Assessment/Plan
#Acute on chronic HFpEF
-Last LVEF 55 to 60% in 2022; Home meds include metoprolol succinate; no GDMT PTO
-Diuretic regimen includes Bumex twice daily and metolazone
-Was decompensated from missing 4 days of Bumex, says pharmacy was out of stock
-Repeat TTE here shows LVEF 65%, mild LVH, mild pulmonary hypertension
-Improving clinically
-warm and wet phenotype, renal function showed bump in BUN, as well as Creatinine
-Continue Bumex 1mg IV BID, with close monitoring of labs and telemetry
Plan
-Continue with IV Bumex 1 mg BID, metolazone 5 mg on ; weight coming down nicely, goal weight is 106 kg, currently at ~117 kg
-GDMT: Spironolactone 25 mg daily, Jardiance 10 mg daily; uptitrate MRA as hemodynamics permit
-monitor I's and O's, monitor weights, trend BMP daily for renal function
-Monitor respiratory status
#Urinary retention
-Was found to have 800 mL urine retained which required straight cath
-Currently on tamsulosin, unclear if related to BPH or other cause of obstruction
Plan
-Trial of void: on 02/28/24, patient complained of difficulty urinating and severe abdominal pain, nurse bladder scanned him for 700 cc and drained 925 cc
-Continue Bladder Scan protocol and Duran Catheter only if needed
-Continue with tamsulosin
#IDDM
-Type 2 diabetes; no recent A1c on record; C/B PAD and peripheral neuropathy
-Home medications listed she will insulin degludec 60U QD, insulin aspart 18U AC
-On arrival was transition to ISS; mealtime insulin to 10 units with long-acting at 60U
-Glucose well-controlled without ISS need (patient has refused)
Plan
-Premeal Insulin increased from 5 units to 10 units
-Encourage sliding scale with additional insulin needed
-Continue with long-acting insulin at 60 units daily
-Consulted Diabetes Nurse Practitioner, appreciate evaluation and recommendations
#Paroxysmal SVT
-Chronic issue, was previously on sotalol per cardiology; stopped by his outpatient heavy forging machine operator
-Heart rate has appeared stable on higher dose of metoprolol succinate (50 mg twice daily)
#PAD s/p left BKA
#Hyperlipidemia
-Home medications include high intensity statin and aspirin
-No signs of CLI or poor perfusion right now
#Alcoholic cirrhosis
#Chronic thrombocytopenia -- platelet baseline 70-90
-MELD-Na 11; complicated by HE, on Xifaxan
-Ultrasound here did not show significant degree of ascites
-Seems fairly well compensated
#CKD 3A
-Unclear etiology, likely related to diabetes and hypertensive history
-Most recently his renal function was normal, EGFR >60
-Will continue to trend BMP as above
#Hypothyroidism
-Unclear etiology, no known iatrogenic causes
-Home regimen includes levothyroxine 137 mcg daily
#Anemia of chronic disease
-Secondary to the above issues; hemoglobin baseline near 9-10
-Hemoglobin on arrival was 9.8, no obvious signs of bleeding, CBC has been stable
#Chronic pain syndrome
-Will continue with home medication regimen for analgesia
#S/p PPM
-Patient unsure medication sounds like SSS/tachybradycardia syndrome
-Scar is well-healed, no signs of dysfunction with
#Morbid obesity -- BMI 45
-BMI may be inaccurate in the context of excessive hypervolemia
-Still has obese habitus, recommend diet/exercise as he tolerates
DVT prophylaxis: Lovenox
Diet: House, 2 g sodium restricted
CODE STATUS: Full code
Anticipated Discharge: > 48 hours
Subjective/Interval History
-
Date of Service: February 29, 2024
Patient was seen and examined. He reported urinating fine, did not need duran catheter.
Objective Data
-
Labs:
Laboratory Results
02/29/24
10:36
WBC Pending
Hgb Pending
Hct Pending
Plt Count Pending
Sodium Pending
Potassium Pending
Chloride Pending
Carbon Dioxide Pending
BUN Pending
Creatinine Pending
Glucose Pending
Calcium Pending
Vital Signs:
Vital Signs
Temp Pulse Resp BP Pulse Ox
98.1 F 64 20 142/67 97
02/29/24 08:09 02/29/24 08:09 02/29/24 08:09 02/29/24 08:09 02/29/24 08:09
I&O
02/28/24 02/29/24 03/01/24
06:59 06:59 06:59
Intake Total 1320 / 1320 2160 / 2160
Output Total 3200 / 3200 5400 / 5400
Balance -1880 / -1880 -3240 / -3240
[2024-02-29 11:06] LABS: Hematocrit 27.5 % (39.0-52.0); Hemoglobin 9.4 g/dL (13.0-18.0); Mean Corp Hgb Conc. 34.2 g/dL (33.0-37.0); Mean Corpuscular Hgb 29.8 pg (27.0-31.0); Mean Corpuscular Volume 87.3 fL (80.0-94.0); Mean Platelet Volume 10.7 fL (7.4-10.4); Platelet Count 101 10^3/uL (130-400); Red Blood Cell Count 3.15 10^6/uL (4.70-6.10); Red Cell Dist. Width 14.6 % (11.5-14.5)
[2024-02-29 11:21] LABS: Blood Urea Nitrogen 59 mg/dl (9-20); Calcium 9.4 mg/dl (8.4-10.2); Carbon Dioxide 27 mmol/L (22-30); Chloride 99 mmol/L (98-107); Estimated Creatinine Clearance 67 ml/min; Glucose 273 mg/dl (70-99); Magnesium 2.2 mg/dl (1.6-2.3); Potassium 4.3 mmol/L (3.5-5.1); Sodium 135 mmol/L (135-145); eGFR 56.48
[2024-02-29 11:42] VITALS: BP 137/63
[2024-02-29 11:55] LABS: Glucose - Point of Care 268 mg/dl (70-99)
--- NOTE | 2024-02-29 12:15 | CM ---
Patient seen beside.
Patient continues with IV diuresis.
TC to Grace from [facility] to see if a hospital bed that weighs a patient or a WC that weighs a patient is available. They do not carry, she called around to her contacts and nothing available. Per Grace even if they did have it, it would not be
covered under insurance.
TC to [facility] to see if they have suggestions to weigh patient, they are unable to weigh patient due to his inability to stand.
Will see if patients PMD or spice grinder has a WC scale as an option.
NORM was able to find WC scale on [employer]. The least expensive was around $300.
Plan: home with [facility] when medically stable.
--- NOTE | 2024-02-29 12:16 | PN.CDI ---
CDI
- -
CDI:
Physician Documentation Request
Admit Date: 02/20/24 17:46
Dear Doctor Marc,
02/26 WOCN documents stage 2 pressure injury to left buttock .
Physician documentation of the type and location of wounds is required for compliant documentation. Based on the above clinical findings and your assessment, please provide the following in your progress note:
1. Location of the ulcer/wound, including laterality.
2. Type (etiology) of ulcer/wound:
- Diabetic ulcer
- Arterial (ischemic) ulcer
- Traumatic wound
- Venous stasis ulcer
- Pressure (decubitus) ulcer
- Non-healing surgical wound
- Other
- Unable to determine
Use of terms such as suspected, likely, concern for, or probable (associated with a specific diagnosis that is being evaluated, monitored, or treated as if it exists) are acceptable and can be coded in the inpatient setting, when documented at the
time of discharge.
Thank you,
Luisa Kirkland RN, BSN
CDI Specialist
tiger text
Please use your independent medical judgment in providing your response.
*Source: National Pressure Ulcer Advisory Panel (NPUAP)
[2024-02-29] MEDS: HYDROPHOR 1 APPLIC TOPICAL (12:26)
[2024-02-29] MEDS: NOVOLOG FLEXPEN-MODERATE RESISTANCE 5 UNITS SC ×2 (12:31→17:17)
--- NOTE | 2024-02-29 13:49 | W.PN.CD ---
Today's Communication / Plan
-
Continue diuresis
We may need to slow diuresis if we see much more elevation of BUN/Cr and rising bicarb
Impression / Plan
-
Background: 63M with HFpEF, PAD with left BKA, DM, HTN, ETOH cirrhosis, anemia, CKD, HLD, obesity, tachy-kayleigh syndrome with pacemaker, SVT, chronic LE lymphedema presents with massive volume overload and recurrent SVT. [place]: Dr Mcfarland
HFpEF: acute on chronic, severe, admitted 70 lbs over weight of Aug 2023, goal weight about 106 kg
- Today 1178.25 and yesterday was 118.96 kg, down almost 1.9 kg in one day
- Continue spironolactone 25mg daily (currently also on KCl) and Jardiance 10mg daily (new, no co-pay)
- Continue Bumex 1mg IV BID, with close monitoring of labs and telemetry
- Metolazone 5 mg is scheduled for Tu and Fr
Known PSVT, previously on sotalol. Minimally symptomatic => Toprol XL 50mg BID
Anemia, of chronic disease
CKD, noted in history, but normal Cr/GFR so far
PPM, Medtronic (implanted 09/2022) stable on telemetry, remains A paced
Lymphedema, chronic
PAD status post left BKA
EtOH cirrhosis
Subjective:
Feeling better.
Physical Exam
Vital Signs/Labs
Vital Signs
Temp Pulse Resp BP Pulse Ox
98.3 F 61 20 137/63 97
02/29/24 11:42 02/29/24 11:42 02/29/24 11:42 02/29/24 11:42 02/29/24 11:42
02/28/24 02/29/24 03/01/24
06:59 06:59 06:59
Actual Weight 118.955 kg 117.254 kg
02/29/24 10:51
02/29/24 09:30
Magnesium 2.2 mg/dl (1.6-2.3) 02/29/24 09:30
TSH 4.34 uIU/ml (0.47-4.68) 02/20/24 14:37
02/20/24
14:37
[id number] Pept 1370
Physical Exam
Constitutional: No acute distress
Cardiovascular: Pedal edema present, S1S2 is normal and Rub absent
Respiratory: Respiratory effort normal and Lungs clear to auscul.
Neuro/Psych: Alert
Data Reviewed
-
Date of Service: February 29, 2024
[2024-02-29 14:24] LABS: Glycohemoglobin (HgbA1c) 6.9 % (4.0-5.6)
[2024-02-29 15:19] LABS: Glucose - Point of Care 269 mg/dl (70-99)
[2024-02-29 15:38] VITALS: BP 127/68
--- NOTE | 2024-02-29 17:12 | PTCARENOTE ---
Patient complained of pressure in his bladder and difficulty peeing. Bladder scan for 480 and straight cath for 750. Patient reports instant relief with straight cath.
[2024-02-29] MEDS: VITAMIN B-12 1000 MCG PO (17:19)
[2024-02-29] MEDS: LOVENOX 40 MG SC (17:19)
[2024-02-29 19:14] VITALS: BP 148/72
[2024-02-29] MEDS: FLOMAX 0.4 MG PO (20:52)
[2024-02-29] MEDS: LIPITOR 40 MG PO (20:52)
[2024-02-29 21:10] LABS: Glucose - Point of Care 183 mg/dl (70-99)
[2024-02-29 23:49] VITALS: BP 139/64
[2024-03-01 03:36] VITALS: BP 144/68
[2024-03-01 06:00] VITALS: BMI 38.7
[2024-03-01] MEDS: SYNTHROID 137 MCG PO (06:05)
[2024-03-01] MEDS: ROXICODONE 10 MG PO ×3 (06:08→23:03)
--- NOTE | 2024-03-01 07:19 | PN.DE.MGMTRT ---
Insulin Management
- -
03/01/2024 Diabetes Management Consult Follow up
Patient admitted 02/19 with SOB, acute on chronic HFpEF. Consult for Diabetes Management 02/28. PMH CHF, PAD (LBKA), type 2 diabetes, HTN, HLD, ETOH cirrhosis, anemia, CKD, obesity, lymphedema, SVT, tachy/kayleigh syndrome with pacemaker. Prior to
admission was taking Jardiance 10 mg daily with novolog 14 to 16 units AC and Tresiba 60 units daily. Last A1C July 2022 7.4%, ordered this AM.
Patient is pleasant, awake, alert and oriented sitting up in bed. Able to discuss diabetes management. States he has had diabetes 25 years. He decides how much novolog to take based on his glucose pre meal and how much he will eat. The Tresiba
is always 60 units. He states he has a Epifanio 3 for glucose monitoring.
Early this admission glucose was fairly well controlled, patient frequently refused AC novolog. Novolog increased to 10 units AC 02/28. Glucose remains elevated range 183 to 269. Fasting this AM 260.
Will increase AC novolog to 14 units, continue lantus 60 units in AM daily. Patient refused corrective insulin this AM. While speaking with him his sensor indicates his glucose is trending up to 307 as we are talking. Assured patient his
glucose would not drop too low. He did take the corrective.
Discussed with nurse.
Patient for discharge, novolog ac dose increased to 14 units AC.
Diabetes History
- -
Type of Diabetes: 2 requiring insulin
Pre-Admission Diabetes Regimen
02/29/24
09:30
Creatinine 1.4 H
Lab Results
Hemoglobin A1c 6.9 % (4.0-5.6) H 02/29/24 09:30
Insulin Pump Settings
IP Diabetes Regimen
02/29/24 02/29/24 02/29/24
07:17 09:30 11:53
Glucose 273 H
POC Glucose 198 H 268 H
02/29/24 02/29/24
15:08 21:05
Glucose
POC Glucose 269 H 183 H
Meal type: Lunch
Meal type: Breakfast
Amount consumed: 100%
Amount consumed: 100%
Patient Education
--- NOTE | 2024-03-01 07:44 | W.PN.CD ---
Today's Communication / Plan
-
continue to diuresis
nearing transition to po bumex, labs pending, if cr up further transition to po
Impression / Plan
-
Background: 63M with HFpEF, PAD with left BKA, DM, HTN, ETOH cirrhosis, anemia, CKD, HLD, obesity, tachy-kayleigh syndrome with pacemaker, SVT, chronic LE lymphedema presents with massive volume overload and recurrent SVT. Printed Circuit Board Layout Designer: Dr Mcfarland
HFpEF: acute on chronic, severe, admitted 70 lbs over weight of Aug 2023, goal weight about 106 kg
- Today 115.29
- Continue spironolactone 25mg daily (currently also on KCl) and Jardiance 10mg daily (new, no co-pay)
- Continue Bumex 1mg IV BID, with close monitoring of labs and telemetry
- Metolazone 5 mg is scheduled for Tu and Fr
Known PSVT, previously on sotalol. Minimally symptomatic => Toprol XL 50mg BID
Anemia, of chronic disease
CKD, noted in history, but normal Cr/GFR so far
PPM, Medtronic (implanted 09/2022) stable on telemetry, remains A paced
Lymphedema, chronic
PAD status post left BKA
EtOH cirrhosis
Subjective:
Feeling better. easier to breath and feels tipple engineer
Physical Exam
Vital Signs/Labs
Vital Signs
Temp Pulse Resp BP Pulse Ox
97.6 F 62 18 144/68 97
03/01/24 03:36 03/01/24 03:36 03/01/24 03:36 03/01/24 03:36 03/01/24 03:36
02/29/24 03/01/24 03/02/24
06:59 06:59 06:59
Actual Weight 117.254 kg 115.298 kg
02/29/24 10:51
Magnesium 2.2 mg/dl (1.6-2.3) 02/29/24 09:30
TSH 4.34 uIU/ml (0.47-4.68) 02/20/24 14:37
02/20/24
14:37
Duq-P-Tinebxslqtx Pept 1370
Physical Exam
Constitutional: No acute distress
Cardiovascular: Rhythm & rate is regular, Pedal edema is absent, JVD pressure is normal and Systolic murmur absent
Respiratory: Respiratory effort normal, Lungs clear to auscul., Wheeze Absent, Crackles Absent and Rhonchi Absent
Neuro/Psych: AO x 3
Data Reviewed
-
Date of Service: March 01, 2024
Medical Decision Making: Review of Case with other Provider (Dr Jama, continue diuesis, await labs)
EKG: Other (tele sinus)
[2024-03-01 08:00] VITALS: BMI 38.7
[2024-03-01 08:11] LABS: Glucose - Point of Care 261 mg/dl (70-99)
[2024-03-01] MEDS: NOVOLOG FLEXPEN 14 UNITS SC ×3 (09:04→17:49)
[2024-03-01] MEDS: LANTUS 0.6 UNITS SC (09:05)
[2024-03-01] MEDS: ROCALTROL 0.25 MCG PO (09:08)
[2024-03-01] MEDS: NEURONTIN 300 MG PO ×2 (09:08→19:35)
[2024-03-01] MEDS: TOPROL XL 50 MG PO ×2 (09:09→19:39)
[2024-03-01] MEDS: THERAGRAN 1 TABLET PO (09:09)
[2024-03-01] MEDS: JARDIANCE 10 MG PO (09:09)
[2024-03-01] MEDS: MAGNESIUM OXIDE 500 MG PO (09:09)
[2024-03-01] MEDS: ASPIR LOW (ENTERIC COATED) 81 MG PO (09:09)
[2024-03-01] MEDS: XIFAXAN 550 MG PO ×2 (09:09→19:35)
[2024-03-01] MEDS: ALDACTONE 25 MG PO (09:09)
[2024-03-01] MEDS: SANTYL OINTMENT 1 APPLIC TOPICAL (09:10)
[2024-03-01] MEDS: BUMEX 1 MG IV (09:10)
[2024-03-01] MEDS: KCL 20 MEQ PO (09:14)
[2024-03-01] MEDS: HYDROPHOR 1 APPLIC TOPICAL (09:16)
[2024-03-01] MEDS: NOVOLOG FLEXPEN-MODERATE RESISTANCE 5 UNITS SC (09:17)
[2024-03-01 09:55] LABS: Blood Urea Nitrogen 66 mg/dl (9-20); Calcium 9.5 mg/dl (8.4-10.2); Carbon Dioxide 28 mmol/L (22-30); Chloride 99 mmol/L (98-107); Estimated Creatinine Clearance 58 ml/min; Glucose 231 mg/dl (70-99); Magnesium 2.3 mg/dl (1.6-2.3); Potassium 4.2 mmol/L (3.5-5.1); Sodium 135 mmol/L (135-145); eGFR 48.11
--- NOTE | 2024-03-01 10:28 | W.PN.HOSP.TC ---
Addendum entered and electronically signed by Jude Tran MD 03/01/24 12:32:
Patient stated that he does not want to leave today, anticipate discharge tomorrow.
Original Note:
Today's Communication/Plan
-
Today, discussed case with Dr. Gallegos of cardiology, and she mentioned it is okay to discharge patient with PO Bumex with repeat labs in 1 week
Will need Tehodore Catheter on discharge
Assessment / Plan
Assessment / Plan
Physical Exam
General: Not in acute distress
HEENT: Normocephalic
Respiratory: Rales (Trace, bibasilar) and Non Labored Respirations
Cardiac: Regular Rhythm, S1/S2 and JVD
GI: Soft, Nontender, Nondistended and Normal Bowel Sounds
Musculoskeletal: Bilateral lower extremity edema
Skin: Warm and Dry
Neuro: AAO x 3, Nonfocal/Grossly Intact and Central Nerve's Intact
Assessment/Plan
#Acute on chronic HFpEF
-Last LVEF 55 to 60% in 2022; Home meds include metoprolol succinate; no GDMT PTO
-Diuretic regimen includes Bumex twice daily and metolazone
-Was decompensated from missing 4 days of Bumex, says pharmacy was out of stock
-Repeat TTE here shows LVEF 65%, mild LVH, mild pulmonary hypertension
-Improving clinically
-warm and wet phenotype, renal function showed bump in BUN, as well as Creatinine
Plan
-Given bump in creatinine, transition from IV Bumex 1 mg BID to PO Bumex 1 mg BID, metolazone 5 mg on Tue/ (here is not on , but will change to Tuesday/Tuesday on discharge); weight came down
-GDMT: Spironolactone 25 mg daily, Jardiance 10 mg daily; uptitrate MRA as hemodynamics permit
-monitor I's and O's, monitor weights, trend BMP daily for renal function
-Monitor respiratory status
-On March 01, 2024, discussed case with Dr. Gallegos of cardiology and she said patient is okay to discharge today with BMP to be done in 1 week and also close follow-up with outpatient inventory auditor Dr. Mcfarland.
#Urinary retention
-Was found to have 800 mL urine retained which required straight cath
-Currently on tamsulosin, unclear if related to BPH or other cause of obstruction
Plan
-Trial of void: on 02/28/24, patient complained of difficulty urinating and severe abdominal pain, nurse bladder scanned him for 700 cc and drained 925 cc
-Back on Theodore Catheter for urinary retention
-Continue with tamsulosin
-Follow-up within 1 week with outpatient urology
#IDDM
-Type 2 diabetes; no recent A1c on record; C/B PAD and peripheral neuropathy
-Diabetes ALARM INVESTIGATOR consulted, recommendations appreciated
Plan
-Consulted Diabetes Nurse Practitioner, appreciate evaluation and recommendations -- and will send out on a new regimen on discharge
#Paroxysmal SVT
-Chronic issue, was previously on sotalol per cardiology; stopped by his outpatient inventory auditor
-Heart rate has appeared stable on higher dose of metoprolol succinate (50 mg twice daily)
#PAD s/p left BKA
#Hyperlipidemia
-Home medications include high intensity statin and aspirin
-No signs of CLI or poor perfusion right now
#Alcoholic cirrhosis
#Chronic thrombocytopenia -- platelet baseline 70-90
-MELD-Na 11; complicated by HE, on Xifaxan
-Ultrasound here did not show significant degree of ascites
-Seems fairly well compensated
#CKD 3A
-Unclear etiology, likely related to diabetes and hypertensive history
-Most recently his renal function was normal, EGFR >60
-Will continue to trend BMP as above
#Hypothyroidism
-Unclear etiology, no known iatrogenic causes
-Home regimen includes levothyroxine 137 mcg daily
#Anemia of chronic disease
-Secondary to the above issues; hemoglobin baseline near 9-10
-Hemoglobin on arrival was 9.8, no obvious signs of bleeding, CBC has been stable
#Chronic pain syndrome
-Will continue with home medication regimen for analgesia
#S/p PPM
-Patient unsure medication sounds like SSS/tachybradycardia syndrome
-Scar is well-healed, no signs of dysfunction with
#Obesity
-BMI may be inaccurate in the context of excessive hypervolemia
-Still has obese habitus, recommend diet/exercise as he tolerates
#Stage 2 pressure injury to left buttock
-Continue wound care
DVT prophylaxis: Lovenox
Diet: House, 2 g sodium restricted
CODE STATUS: Full code
More than 30 minutes spent in discharge including
Final examination of the patient
Summarizing hospital stay
Instructions for continuing care to all relevant caregivers
Preparation of discharge records, prescriptions, and referral forms
Total time spent (in minutes): 45
Anticipated Discharge: Today
Subjective/Interval History
-
Date of Service: March 01, 2024
Patient was seen and examined. He reported urinary retention in the past 24 hours, requiring him to be back on a Theodore Catheter.
Objective Data
-
Labs:
Laboratory Results
03/01/24
08:04
Sodium 135
Potassium 4.2
Chloride 99
Carbon Dioxide 28
BUN 66 H
Creatinine 1.6 H
Glucose 231 H
Calcium 9.5
Vital Signs:
Vital Signs
Temp Pulse Resp BP Pulse Ox
97.6 F 62 18 144/68 97
03/01/24 03:36 03/01/24 03:36 03/01/24 03:36 03/01/24 03:36 03/01/24 03:36
I&O
02/29/24 03/01/24 03/02/24
06:59 06:59 06:59
Intake Total 2160 / 2160 2520 / 2520
Output Total 5400 / 5400 5350 / 5350
Balance -3240 / -3240 -2830 / -2830
--- NOTE | 2024-03-01 10:29 | PTCARENOTE ---
filtering machine tender helper in this morning to speak with patient. He needed encouragement to take prescribed insulin dose . Finally agreed.
[2024-03-01 11:05] VITALS: BP 135/56
[2024-03-01 11:59] LABS: Glucose - Point of Care 310 mg/dl (70-99)
[2024-03-01] MEDS: COLACE 100 MG PO ×2 (12:26→19:38)
[2024-03-01] MEDS: NOVOLOG FLEXPEN-MODERATE RESISTANCE 7 UNITS SC (12:27)
[2024-03-01 14:01] VITALS: BP 142/64; PULSE 64; O2SAT 95
--- NOTE | 2024-03-01 15:56 | CM ---
Continue diuresis.
Patient not feeling well enough for d/c today.
PT/OT recommending home health.
Per patient , brothers will transport. he has his sliding board in the room.
Plan: home with [facility] when stable.
[2024-03-01 16:06] VITALS: BP 144/63
--- NOTE | 2024-03-01 16:37 | WOUNDNOTE ---
LEFT BUTTOCK WOUND
--- NOTE | 2024-03-01 16:40 | WOUNDNOTE ---
[facility] RN NOTE: Reviewed chart. Met with patient to follow up on wounds. Spoke to RN Sharon who recently completed wound care. Left buttock wound. Left stump dressing clean and intact. Patient demonstrated ability to turn self in bed and is on a Versa
Care Air bed. Right heel elevated on pillows. Will continue to follow as needed.
[2024-03-01 17:43] LABS: Glucose - Point of Care 192 mg/dl (70-99)
[2024-03-01] MEDS: LOVENOX 40 MG SC (17:50)
[2024-03-01] MEDS: NOVOLOG FLEXPEN-MODERATE RESISTANCE 1 UNITS SC (17:50)
[2024-03-01] MEDS: VITAMIN B-12 1000 MCG PO (17:50)
[2024-03-01] MEDS: BUMEX 1 MG PO (19:39)
[2024-03-01 19:51] VITALS: BP 158/72
[2024-03-01] MEDS: MIRALAX 17 GRAMS PO (20:37)
[2024-03-01] MEDS: DULCOLAX 10 MG RECTAL (20:37)
[2024-03-01 21:01] LABS: Glucose - Point of Care 301 mg/dl (70-99)
[2024-03-01] MEDS: LIPITOR 40 MG PO (21:36)
[2024-03-01] MEDS: FLOMAX 0.4 MG PO (21:36)
[2024-03-01 23:08] VITALS: BP 128/77
[2024-03-02 03:40] VITALS: BP 147/63
[2024-03-02] MEDS: SYNTHROID 137 MCG PO (05:38)
[2024-03-02 06:00] VITALS: BMI 39.0
[2024-03-02 07:00] VITALS: BP 135/58
[2024-03-02 07:20] LABS: Glucose - Point of Care 240 mg/dl (70-99)
--- NOTE | 2024-03-02 07:46 | PN.DE.MGMTRT ---
Insulin Management
- -
03/02/2024 Diabetes Management Consult Follow up
Patient admitted 02/19 with SOB, acute on chronic HFpEF. Consult for Diabetes Management 02/28. PMH CHF, PAD (LBKA), type 2 diabetes, HTN, HLD, ETOH cirrhosis, anemia, CKD, obesity, lymphedema, SVT, tachy/kayleigh syndrome with pacemaker. Prior to
admission was taking Jardiance 10 mg daily with novolog 14 to 16 units AC and Tresiba 60 units daily. Last A1C July 2022 7.4%, current A1C 6.9% .
Patient is pleasant, awake, alert and oriented sitting up in bed. Able to discuss diabetes management. States he has had diabetes 25 years. He decides how much novolog to take based on his glucose pre meal and how much he will eat. The Tresiba
is always 60 units. He states he has a Epifanio 3 for glucose monitoring.
Early this admission glucose was fairly well controlled, patient frequently refused AC novolog. Novolog increased to 10 units AC 02/28. Glucose remains elevated range 183 to 269. Fasting this AM 260.
AC novolog increased 03/01 to 14 units, continue lantus 60 units in AM daily. Patient frequently refuses corrective insulin, discussed the importance of glucose control. Assured patient his glucose would not drop too low. He did take the
corrective, but reluctantly. Fasting this AM 240. Nurse reports he was reluctant to take corrective insulin but eventually did agree.
Discussed with nurse.
Patient for discharge, novolog ac dose increased to 14 units AC, to resume home insulin Tresiba at 60 units.
Diabetes History
- -
Type of Diabetes: 2 requiring insulin
Pre-Admission Diabetes Regimen
03/01/24
08:04
Creatinine 1.6 H
Lab Results
Hemoglobin A1c 6.9 % (4.0-5.6) H 02/29/24 09:30
Insulin Pump Settings
IP Diabetes Regimen
03/01/24 03/01/24 03/01/24
08:04 08:10 11:57
Glucose 231 H
POC Glucose 261 H 310 H
03/01/24 03/01/24 03/02/24
17:40 20:59 07:19
Glucose
POC Glucose 192 H 301 H 240 H
Meal type: Breakfast
Amount consumed: 100%
Patient Education
[2024-03-02] MEDS: KCL 20 MEQ PO (07:51)
[2024-03-02] MEDS: THERAGRAN 1 TABLET PO (07:51)
[2024-03-02] MEDS: HYDROPHOR 1 APPLIC TOPICAL (07:52)
[2024-03-02] MEDS: MAGNESIUM OXIDE 500 MG PO (07:52)
[2024-03-02] MEDS: ROCALTROL 0.25 MCG PO (07:52)
[2024-03-02] MEDS: NEURONTIN 300 MG PO ×2 (07:52→19:28)
[2024-03-02] MEDS: XIFAXAN 550 MG PO ×2 (07:52→19:28)
[2024-03-02] MEDS: ASPIR LOW (ENTERIC COATED) 81 MG PO (07:52)
[2024-03-02] MEDS: LANTUS 0.6 UNITS SC (07:56)
[2024-03-02] MEDS: NOVOLOG FLEXPEN-MODERATE RESISTANCE 3 UNITS SC (07:57)
[2024-03-02] MEDS: NOVOLOG FLEXPEN 14 UNITS SC ×3 (07:58→17:50)
[2024-03-02] MEDS: TOPROL XL 50 MG PO (07:58)
[2024-03-02] MEDS: SANTYL OINTMENT 1 APPLIC TOPICAL (07:58)
[2024-03-02] MEDS: BUMEX 1 MG PO ×2 (07:58→16:47)
[2024-03-02] MEDS: JARDIANCE 10 MG PO (07:59)
[2024-03-02] MEDS: ALDACTONE 25 MG PO (08:00)
[2024-03-02] MEDS: COLACE 100 MG PO (08:04)
--- NOTE | 2024-03-02 09:39 | W.PN.CD ---
Today's Communication / Plan
-
Will update renal Today
Continue with P.O. Diuresis. Will Transition Metolazone to the A.M. When Discharged.
Increase metoprolol to 75 mg p.o. twice daily (patient has a pacemaker)
No cardiac contraindication to follow-up, we will sign off
He should follow-up with his primary drop hammer setter up Dr. Mcfarland.
Impression / Plan
-
Background: 63M with HFpEF, PAD with left BKA, DM, HTN, ETOH cirrhosis, anemia, CKD, HLD, obesity, tachy-kayleigh syndrome with pacemaker, SVT, chronic LE lymphedema presents with massive volume overload and recurrent SVT. Senior Principal: Dr Mcfarland
HFpEF: acute on chronic, severe, admitted 70 lbs over weight of Aug 2023, goal weight about 106 kg
- Continue spironolactone 25mg daily (currently also on KCl) and Jardiance 10mg daily (new, no co-pay)
- Continue Bumex 1mg po BID, with close monitoring of labs and telemetry
- Metolazone 5 mg is scheduled for Tu and Fr( as outpatient should get in the am)
Known PSVT, previously on sotalol. Minimally Assymptomatic last night=> Toprol XL 50mg BID will increase to 75mg po bid
Anemia, of chronic disease
CKD, noted in history, but normal Cr/GFR so far
PPM, Medtronic (implanted 09/2022) stable on telemetry, remains A paced
Lymphedema, chronic
PAD status post left BKA
EtOH cirrhosis
Subjective:
Feeling better. easier to breath and feels start up specialist, but constipated
Physical Exam
Vital Signs/Labs
Vital Signs
Temp Pulse Resp BP Pulse Ox
97.9 F 62 14 132/58 97
03/02/24 07:00 03/02/24 08:00 03/02/24 07:00 03/02/24 08:00 03/02/24 07:00
03/01/24 03/02/24 03/03/24
06:59 06:59 06:59
Actual Weight 115.298 kg 116.29 kg
02/29/24 10:51
03/01/24 08:04
Magnesium 2.3 mg/dl (1.6-2.3) 03/01/24 08:04
TSH 4.34 uIU/ml (0.47-4.68) 02/20/24 14:37
02/20/24
14:37
Akz-E-Btzirsfmrca Pept 1370
Physical Exam
Constitutional: No acute distress
Cardiovascular: Rhythm & rate is regular, Systolic murmur absent, Diastolic murmur absent and Pedal edema present (Chronic lymphedema with skin changes as such)
Respiratory: Respiratory effort normal and Lungs clear to auscul.
Neuro/Psych: AO x 3
Data Reviewed
-
Date of Service: March 02, 2024
EKG: Other (Telemetry with SVT in the 120s last night, EKG showed possible sinus tachycardia but likely in AT given sudden offset.)
--- NOTE | 2024-03-02 10:49 | PN.CDI ---
CDI
- -
CDI:
Physician Documentation Request
Admit Date: 02/20/24 17:46
Dear Doctor Marc,
Patient admitted for heart failure.
Recent creatinine resulted as follows:
Laboratory Tests
02/28/24 02/29/24 03/01/24
10:46 09:30 08:04
Creatinine 1.3 1.4 H 1.6 H
Could you please provide a diagnosis that supports the above lab abnormalities and additional evaluation/ monitoring :
WALDO
abnormal lab value clinically insignificant
Other
Criteria for WALDO*
1 Increase in serum creatinine by > or = to 0.3 mg/dL (> or = to 26.5 micromol/L) within 48 hours, OR
2 Increase in serum creatinine to > or = to 1.5 times baseline, which is known or presumed to have occurred within 7 days, OR
3 Urine volume < 0.5 nL/kg/hour for six hours
Use of terms such as suspected, likely, concern for, or probable (associated with a specific diagnosis that is being evaluated, monitored, or treated as if it exists) are acceptable and can be coded in the inpatient setting, when documented at the
time of discharge.
Thank you,
Luisa Kirkland RN, BSN
CDI Specialist
tiger text
Please use your independent medical judgment in providing your response.
[2024-03-02 11:10] VITALS: BP 152/71
[2024-03-02] MEDS: SENOKOT-S 1 TABLET PO ×2 (11:27→19:29)
[2024-03-02] MEDS: MIRALAX 17 GRAMS PO (11:27)
[2024-03-02 11:44] LABS: Glucose - Point of Care 320 mg/dl (70-99)
[2024-03-02 12:01] LABS: Blood Urea Nitrogen 74 mg/dl (9-20); Calcium 9.2 mg/dl (8.4-10.2); Carbon Dioxide 27 mmol/L (22-30); Chloride 96 mmol/L (98-107); Estimated Creatinine Clearance 62 ml/min; Glucose 290 mg/dl (70-99); Magnesium 2.4 mg/dl (1.6-2.3); Sodium 132 mmol/L (135-145); eGFR 51.99
[2024-03-02] MEDS: NOVOLOG FLEXPEN-MODERATE RESISTANCE 7 UNITS SC (12:32)
--- NOTE | 2024-03-02 13:55 | W.PN.HOSP.TC ---
Addendum entered and electronically signed by Jude Tran MD 03/02/24 14:24:
Patient refused discharge saying he wants voiding trial done here inpatient and monitor overnight, and discharge tomorrow.
Addendum entered and electronically signed by Jude Tran MD 03/02/24 14:02:
Concern for WALDO
Original Note:
Today's Communication/Plan
-
Discharge today
Assessment / Plan
Assessment / Plan
Physical Exam
General: Not in acute distress
HEENT: Normocephalic
Respiratory: Rales (Trace, bibasilar) and Non Labored Respirations
Cardiac: Regular Rhythm, S1/S2 and JVD
GI: Soft, Nontender, Nondistended and Normal Bowel Sounds
Musculoskeletal: Bilateral lower extremity edema
Skin: Warm and Dry
Neuro: AAO x 3, Nonfocal/Grossly Intact and Central Nerve's Intact
Assessment/Plan
#Acute on chronic HFpEF
-Last LVEF 55 to 60% in 2022; Home meds include metoprolol succinate; no GDMT PTO
-Diuretic regimen includes Bumex twice daily and metolazone
-Was decompensated from missing 4 days of Bumex, says pharmacy was out of stock
-Repeat TTE here shows LVEF 65%, mild LVH, mild pulmonary hypertension
-Improving clinically
-warm and wet phenotype, renal function showed bump in BUN, as well as Creatinine
Plan
-Given bump in creatinine, transition from IV Bumex 1 mg BID to PO Bumex 1 mg BID, metolazone 5 mg on Tue/ in the MORNINGS (here is not on Tue/, but will change to Tuesday/Tuesday on discharge); weight came down
-GDMT: Spironolactone 25 mg daily, Jardiance 10 mg daily; uptitrate MRA as hemodynamics permit
-monitor I's and O's, monitor weights, trend BMP daily for renal function
-Monitor respiratory status
-On March 01, 2024, discussed case with Dr. Gallegos of cardiology and she said patient is okay to discharge today with BMP to be done in 1 week and also close follow-up with outpatient locator Dr. Mcfarland.
#Urinary retention
-Was found to have 800 mL urine retained which required straight cath
-Currently on tamsulosin, unclear if related to BPH or other cause of obstruction
Plan
-Trial of void: on 02/28/24, patient complained of difficulty urinating and severe abdominal pain, nurse bladder scanned him for 700 cc and drained 925 cc
-Back on Theodore Catheter for urinary retention
-Continue with tamsulosin
-Follow-up within 1 week with outpatient urology
#IDDM
-Type 2 diabetes; no recent A1c on record; C/B PAD and peripheral neuropathy
-Diabetes CABLE INSTALLATION MANAGER consulted, recommendations appreciated
Plan
-Consulted Diabetes Nurse Practitioner, appreciate evaluation and recommendations -- and will send out on a new regimen on discharge
#Paroxysmal SVT
-Had SVT overnight 03/01/24 to 03/02/24
-Chronic issue, was previously on sotalol per cardiology; stopped by his outpatient locator
-Heart rate has appeared stable on higher dose of metoprolol succinate 75mg po bid
#PAD s/p left BKA
#Hyperlipidemia
-Home medications include high intensity statin and aspirin
-No signs of CLI or poor perfusion right now
#Alcoholic cirrhosis
#Chronic thrombocytopenia -- platelet baseline 70-90
-MELD-Na 11; complicated by HE, on Xifaxan
-Ultrasound here did not show significant degree of ascites
-Seems fairly well compensated
#CKD 3A
-Unclear etiology, likely related to diabetes and hypertensive history
-Most recently his renal function was normal, EGFR >60
-Will continue to trend BMP as above
#Hypothyroidism
-Unclear etiology, no known iatrogenic causes
-Home regimen includes levothyroxine 137 mcg daily
#Anemia of chronic disease
-Secondary to the above issues; hemoglobin baseline near 9-10
-Hemoglobin on arrival was 9.8, no obvious signs of bleeding, CBC has been stable
#Chronic pain syndrome
-Will continue with home medication regimen for analgesia
#S/p PPM
-Patient unsure medication sounds like SSS/tachybradycardia syndrome
-Scar is well-healed, no signs of dysfunction with
#Obesity
-BMI may be inaccurate in the context of excessive hypervolemia
-Still has obese habitus, recommend diet/exercise as he tolerates
#Stage 2 pressure injury to left buttock
-Continue wound care
DVT prophylaxis: Lovenox
Diet: 2 g sodium restricted
CODE STATUS: Full code
More than 30 minutes spent in discharge including
Final examination of the patient
Summarizing hospital stay
Instructions for continuing care to all relevant caregivers
Preparation of discharge records, prescriptions, and referral forms
Total time spent (in minutes): 40
Anticipated Discharge: Today
Subjective/Interval History
-
Date of Service: March 02, 2024
Patient was seen and examined. Earlier in the day he reported constipation but later in the day he had a good bowel movement after bowel regimen was given.
Objective Data
-
Labs:
Laboratory Results
03/02/24
10:57
Sodium 132 L
Potassium 4.0
Chloride 96 L
Carbon Dioxide 27
BUN 74 H
Creatinine 1.5 H
Glucose 290 H
Calcium 9.2
Vital Signs:
Vital Signs
Temp Pulse Resp BP Pulse Ox
97.4 F 64 18 152/71 96
03/02/24 11:10 03/02/24 11:10 03/02/24 11:10 03/02/24 11:10 03/02/24 11:10
I&O
03/01/24 03/02/24 03/03/24
06:59 06:59 06:59
Intake Total 2520 / 2520 1200 / 1200
Output Total 5350 / 5350 3175 / 3175
Balance -2830 / -2830 -1974 /
--- NOTE | 2024-03-02 15:08 | CM ---
Patient seen today.
tt Dr. Salmon regarding discharge.
Discharge for tomorrow.
Spoke with Cecy from [facility] will accept patient. Updated clinicals sent via care port.
Voiding trial today.
PLAN: Discharge tomorrow to [facility] with [facility].
REPORT: [phone]
FAX on weekend:
FAX during week: [phone]
[2024-03-02 15:30] VITALS: BP 147/66
[2024-03-02] MEDS: ZAROXOLYN 5 MG PO (16:16)
--- NOTE | 2024-03-02 16:30 | PTCARENOTE ---
Removed duran per provider. Patient to have another voiding trial before discharge to home tomorrow.
[2024-03-02 16:45] LABS: Glucose - Point of Care 277 mg/dl (70-99)
[2024-03-02] MEDS: NOVOLOG FLEXPEN-MODERATE RESISTANCE 5 UNITS SC (17:49)
[2024-03-02] MEDS: LOVENOX 40 MG SC (17:51)
[2024-03-02] MEDS: VITAMIN B-12 1000 MCG PO (17:51)
[2024-03-02] MEDS: ROXICODONE 10 MG PO (19:26)
[2024-03-02] MEDS: TOPROL XL 75 MG PO (19:44)
[2024-03-02 20:59] LABS: Glucose - Point of Care 252 mg/dl (70-99)
[2024-03-02] MEDS: FLOMAX 0.4 MG PO (21:38)
[2024-03-02] MEDS: LIPITOR 40 MG PO (21:38)
[2024-03-02 23:06] VITALS: BP 152/75
[2024-03-03 03:29] VITALS: BP 170/75
[2024-03-03 04:52] VITALS: BMI 39.1
[2024-03-03] MEDS: SYNTHROID 137 MCG PO (04:55)
[2024-03-03 06:22] VITALS: BP 135/64
[2024-03-03 07:00] VITALS: BP 147/64
[2024-03-03 07:48] LABS: Glucose - Point of Care 252 mg/dl (70-99)
[2024-03-03] MEDS: TOPROL XL 75 MG PO (07:55)
[2024-03-03] MEDS: NEURONTIN 300 MG PO (07:55)
[2024-03-03] MEDS: ALDACTONE 25 MG PO (07:55)
[2024-03-03] MEDS: ROCALTROL 0.25 MCG PO (07:55)
[2024-03-03] MEDS: ASPIR LOW (ENTERIC COATED) 81 MG PO (07:55)
[2024-03-03] MEDS: SENOKOT-S 1 TABLET PO (07:55)
[2024-03-03] MEDS: BUMEX 1 MG PO (07:55)
[2024-03-03] MEDS: THERAGRAN 1 TABLET PO (07:55)
[2024-03-03] MEDS: MIRALAX 17 GRAMS PO (07:55)
[2024-03-03] MEDS: JARDIANCE 10 MG PO (07:55)
[2024-03-03] MEDS: XIFAXAN 550 MG PO (07:59)
[2024-03-03] MEDS: SANTYL OINTMENT 1 APPLIC TOPICAL (08:00)
[2024-03-03] MEDS: KCL 20 MEQ PO (08:00)
[2024-03-03] MEDS: MAGNESIUM OXIDE 500 MG PO (08:00)
[2024-03-03] MEDS: LANTUS 0.6 UNITS SC (08:01)
[2024-03-03] MEDS: NOVOLOG FLEXPEN-MODERATE RESISTANCE 3 UNITS SC (08:01)
[2024-03-03] MEDS: NOVOLOG FLEXPEN 14 UNITS SC ×2 (08:01→12:04)
[2024-03-03] MEDS: HYDROPHOR 1 APPLIC TOPICAL (08:02)
[2024-03-03 08:07] LABS: Blood Urea Nitrogen 78 mg/dl (9-20); Calcium 9.5 mg/dl (8.4-10.2); Carbon Dioxide 26 mmol/L (22-30); Chloride 99 mmol/L (98-107); Estimated Creatinine Clearance 63 ml/min; Glucose 201 mg/dl (70-99); Magnesium 2.6 mg/dl (1.6-2.3); Potassium 3.4 mmol/L (3.5-5.1); Sodium 137 mmol/L (135-145); eGFR 51.99
--- NOTE | 2024-03-03 10:32 | W.PN.HOSP.TC ---
Today's Communication/Plan
-
Discharge today
Assessment / Plan
Assessment / Plan
Physical Exam
General: Not in acute distress
HEENT: Normocephalic
Respiratory: Rales (Trace, bibasilar) and Non Labored Respirations
Cardiac: Regular Rhythm, S1/S2 and JVD
GI: Soft, Nontender, Nondistended and Normal Bowel Sounds
Musculoskeletal: Bilateral lower extremity edema
Skin: Warm and Dry
Neuro: AAO x 3, Nonfocal/Grossly Intact and Central Nerve's Intact
Assessment/Plan
#Acute on chronic HFpEF
-Last LVEF 55 to 60% in 2022; Home meds include metoprolol succinate; no GDMT PTO
-Diuretic regimen includes Bumex twice daily and metolazone
-Was decompensated from missing 4 days of Bumex, says pharmacy was out of stock
-Repeat TTE here shows LVEF 65%, mild LVH, mild pulmonary hypertension
-Improving clinically
-warm and wet phenotype, renal function showed bump in BUN, as well as Creatinine
Plan
-Given bump in creatinine, transition from IV Bumex 1 mg BID to PO Bumex 1 mg BID, metolazone 5 mg on Tue/ in the MORNINGS (here is not on Tue/, but will change to Tuesday/Tuesday on discharge); weight came down
-GDMT: Spironolactone 25 mg daily, Jardiance 10 mg daily; uptitrate MRA as hemodynamics permit
-monitor I's and O's, monitor weights, trend BMP daily for renal function
-Monitor respiratory status
-On March 01, 2024, discussed case with Dr. Gallegos of cardiology and she said patient is okay to discharge today with BMP to be done in 1 week and also close follow-up with outpatient global regulatory affairs manager Dr. Mcfarland.
#Mild Hypokalemia on 03/03/24
-Additional oral potassium ordered for 03/03/24 morning
-Recheck BMP in 4 to 6 days outpatient
#Urinary retention
-Was found to have 800 mL urine retained which required straight cath
-Currently on tamsulosin, unclear if related to BPH or other cause of obstruction
Plan
-Trial of void: on 02/28/24, patient complained of difficulty urinating and severe abdominal pain, nurse bladder scanned him for 700 cc and drained 925 cc
-Trial of void 03/02/24 to 03/03/24: voided 250 and had a residual of 320 on 03/03/24 AM, spoke with urology Dr. Joya who recommended 1) Doubling Flomax dose, or 2) recheck a PVR in a couple of hours and if lower/stable then won't need a Theodore
Catheter but if increasing and over 400 then probably needs to be discharged with Theodore Catheter
-Continue with tamsulosin
-Follow-up within 1 week with outpatient urology
#IDDM
-Type 2 diabetes; no recent A1c on record; C/B PAD and peripheral neuropathy
-Diabetes FINISHER [employer]IP consulted, recommendations appreciated
Plan
-Consulted Diabetes Nurse Practitioner, appreciate evaluation and recommendations -- and will send out on a new regimen on discharge
-Follow sugars at home and with PCP after discharge
#Paroxysmal SVT
-Had SVT overnight 03/01/24 to 03/02/24
-Chronic issue, was previously on sotalol per cardiology; stopped by his outpatient global regulatory affairs manager
-Heart rate has appeared stable on higher dose of metoprolol succinate 75mg po bid
#PAD s/p left BKA
#Hyperlipidemia
-Home medications include high intensity statin and aspirin
-No signs of CLI or poor perfusion right now
#Alcoholic cirrhosis
#Chronic thrombocytopenia -- platelet baseline 70-90
-MELD-Na 11; complicated by HE, on Xifaxan
-Ultrasound here did not show significant degree of ascites
-Seems fairly well compensated
#CKD 3A
-Unclear etiology, likely related to diabetes and hypertensive history
-Most recently his renal function was normal, EGFR >60
-Will continue to trend BMP as above
#Hypothyroidism
-Unclear etiology, no known iatrogenic causes
-Home regimen includes levothyroxine 137 mcg daily
#Anemia of chronic disease
-Secondary to the above issues; hemoglobin baseline near 9-10
-Hemoglobin on arrival was 9.8, no obvious signs of bleeding, CBC has been stable
#Chronic pain syndrome
-Will continue with home medication regimen for analgesia
#S/p PPM
-Patient unsure medication sounds like SSS/tachybradycardia syndrome
-Scar is well-healed, no signs of dysfunction with
#Obesity
-BMI may be inaccurate in the context of excessive hypervolemia
-Still has obese habitus, recommend diet/exercise as he tolerates
#Stage 2 pressure injury to left buttock
-Continue wound care
DVT prophylaxis: Lovenox
Diet: 2 g sodium restricted
CODE STATUS: Full code
More than 30 minutes spent in discharge including
Final examination of the patient
Summarizing hospital stay
Instructions for continuing care to all relevant caregivers
Preparation of discharge records, prescriptions, and referral forms
Total time spent (in minutes): 45
Anticipated Discharge: Today
Subjective/Interval History
-
Date of Service: March 03, 2024
Patient was seen and examined. He reported no new symptoms or complaints.
Objective Data
-
Labs:
Laboratory Results
03/03/24
06:35
Sodium 137
Potassium 3.4 L
Chloride 99
Carbon Dioxide 26
BUN 78 H
Creatinine 1.5 H
Glucose 201 H
Calcium 9.5
Vital Signs:
Vital Signs
Temp Pulse Resp BP Pulse Ox
98.0 F 61 20 147/64 97
03/03/24 07:00 03/03/24 07:00 03/03/24 07:00 03/03/24 07:00 08/17/24 07:00
I&O
03/02/24 03/03/24 03/04/24
06:59 06:59 06:59
Intake Total 1200 / 1200 2400 / 2400
Output Total 3175 / 3175 3950 / 3950
Balance -1974 / -1974 -1550 / -1550
[2024-03-03] MEDS: KCL 40 MEQ PO (10:33)
[2024-03-03 11:00] VITALS: BP 144/70
--- NOTE | 2024-03-03 11:16 | W.DS.TRANS ---
DC Summary - Inbound Sales Advisor
-
Discharge Instructions:
Sleep Apnea Risk High
Discharge Diagnosis/Procedures #Acute on chronic HFpEF
#Urinary retention
#IDDM
#Paroxysmal SVT
#PAD s/p left BKA
#Hyperlipidemia
#Alcoholic cirrhosis
#Chronic thrombocytopenia -- platelet baseline
70-90
#CKD 3A
#Hypothyroidism
#Anemia of chronic disease
#Chronic pain syndrome
#Status post PPM
#Obesity
#Stage 2 pressure injury to left buttock
Diet Low Sodium,Diabetic, Carb Controlled,Low
Cholesterol,Low Fat,Restrict fluids to 48 oz
Activity As tolerated
Driving Restrictions No driving
Blood Work Recheck CBC, BMP and magnesium with your primary
care provider's office by Tuesday03/05/24
Other Services PT,OT
Specialty Instructions Weigh Daily
Instructions: *PCP/Other Lab Technologist Heart Failure Instructions
Stand-Alone Forms:
Changes to Home Medications: Yes
Discharge Medications:
DC Medications w/original date entered in [employer]
aspirin 81 mg tablet,delayed release 81 mg PO DAILY Blood clot prevention/tx 09/25/19
atorvastatin 40 mg tablet 40 mg PO HS High cholesterol 09/25/19
calcitriol 0.25 mcg capsule 0.25 mcg PO DAILY Kidney Disease 09/25/19
insulin degludec 200 unit/mL (3 mL) subcutaneous pen (Tresiba FlexTouch U-200 insulin) 60 unit SC DAILY Diabetes 09/20/22
magnesium oxide 500 mg PO DAILY Supplement 05/05/23
trazodone 50 mg tablet 50 mg PO HS PRN SLEEP 07/21/23
vrcstmkd-vu-uuuut 300 mcg-K 60 mcg-lycop 600 mcg-lutein 300 mcg tablet (Centrum Silver Men) 1 tab PO DAILY Supplement 07/22/23
rifaximin 550 mg tablet (Xifaxan) 550 mg PO BID Liver Issues 08/18/23
cyanocobalamin (vitamin B-12) 1,000 mcg tablet 1,000 mcg PO QPM 09/02/23
gabapentin 300 mg capsule 300 mg PO BID 09/02/23
levothyroxine 137 mcg tablet 137 mcg PO DAILY@0700 09/02/23
oxycodone 10 mg tablet 10 mg PO Q4HPRN PRN moderate pain 09/02/23
potassium chloride 20 mEq tablet,extended release 20 meq PO DAILY Electrolyte Repletion 09/02/23
empagliflozin 10 mg tablet (Jardiance) 10 mg PO DAILY CHF 1 month #30 tabs 02/26/24
spironolactone 25 mg tablet 25 mg PO DAILY CHF 1 month #30 tabs 02/26/24
insulin aspart U-100 100 unit/mL (3 mL) subcutaneous pen (Novolog FlexPen U-100 Insulin aspart) 14 unit (0.14 mL) SC AC #5 ea 03/01/24
metolazone 5 mg tablet 5 mg PO .MonFr@AM #20 tabs 03/02/24
metoprolol succinate 50 mg tablet,extended release 24 hr 75 mg (1.5 x 50 mg) PO BID #90 tabs 03/02/24
polyethylene glycol 3350 17 gram oral powder packet (HealthyLax) 17 g PO DAILY #30 ea 03/02/24
sennosides 8.6 mg-docusate sodium 50 mg tablet 1 tab PO BID #60 tabs 03/02/24
bumetanide 1 mg tablet 1 mg PO BID Fluid Retention/Swelling #60 tabs 03/03/24
tamsulosin 0.4 mg capsule 0.8 mg (2 x 0.4 mg) PO HS prostate #30 caps 03/03/24
Home Medication Changes
Start Jardiance 10 mg daily
Start Spironolactone 25 mg daily
Increase metoprolol succinate to 75 mg twice daily
Continue 60 units long acting insulin daily
Take 14 units short acting insulin with meals and use additional sliding scale coverage as needed
Tamsulosin (Flomax) Dose has been increased to help your urinary retention
Pending Results: No
Total time spent discharging patient (in min): 45
[2024-03-03 11:36] LABS: Glucose - Point of Care 253 mg/dl (70-99)
--- NOTE | 2024-03-03 11:47 | CM ---
Patient seen beside.
PAtien for d/c home with Theodore catheter.
RXs sent to pharmacy, TC to pharmacy and Bumes and new medications will be available for pickup at 2:30 pm.
Brothers will transport home.
patient has sliding board i n his room.
Plan: home with [facility]
[place] [facility]
[2024-03-03] MEDS: NOVOLOG FLEXPEN-MODERATE RESISTANCE 5 UNITS SC (12:04)
== END 2024-03-03 13:28 | disposition home health service (06) | DRG 291 ==
LOC: 4 WEST ACU 17:46
PROVIDERS: Nurse Practitioner; ADMITTING PHYSICIAN Internal Medicine; ATTENDING PHYSICIAN Hospitalist; EMERGENCY PHYSICIAN Student in an Organized Health Care Education/Training Program; FAMILY PHYSICIAN Family Medicine; OTHER PHYSICIAN Internal Medicine Cardiovascular Disease
DX: I13.0 Hypertensive heart and chronic kidney disease with heart failure and stage 1 through stage 4 chronic kidney disease, or unspecified chronic kidney disease (principal); I50.33 Acute on chronic diastolic (congestive) heart failure; K76.6 Portal hypertension; F11.20 Opioid dependence, uncomplicated; I47.10 Supraventricular tachycardia, unspecified; Z68.42 Body mass index [BMI] 45.0-49.9, adult; N17.9 Acute kidney failure, unspecified; K76.82 Hepatic encephalopathy; D63.8 Anemia in other chronic diseases classified elsewhere; D63.1 Anemia in chronic kidney disease; E11.42 Type 2 diabetes mellitus with diabetic polyneuropathy; D69.59 Other secondary thrombocytopenia; E11.22 Type 2 diabetes mellitus with diabetic chronic kidney disease; E11.51 Type 2 diabetes mellitus with diabetic peripheral angiopathy without gangrene; E66.01 Morbid (severe) obesity due to excess calories; F10.20 Alcohol dependence, uncomplicated; N18.31 Chronic kidney disease, stage 3a; E03.9 Hypothyroidism, unspecified; L89.322 Pressure ulcer of left buttock, stage 2; I49.5 Sick sinus syndrome; K70.30 Alcoholic cirrhosis of liver without ascites; N40.0 Benign prostatic hyperplasia without lower urinary tract symptoms; G89.4 Chronic pain syndrome; E78.00 Pure hypercholesterolemia, unspecified; Z86.79 Personal history of other diseases of the circulatory system; Z95.0 Presence of cardiac pacemaker; I87.8 Other specified disorders of veins; I89.0 Lymphedema, not elsewhere classified; Z79.82 Long term (current) use of aspirin; Z79.4 Long term (current) use of insulin; Z79.890 Hormone replacement therapy; Z79.899 Other long term (current) drug therapy; Z89.512 Acquired absence of left leg below knee
CPT/HCPCS: 71046; 76705; 80048; 80053; 82947; 82962; 83036; 83735; 83880; 84443; 84484; 85025; 85027; 87070; 93005; 93306; 96374; 97110; 97162; 97166; 97530; 99285; Q9950

== ENCOUNTER 2024-08-06 19:46 | Inpatient (IN) | payer OTHER, SELFPAY ==
[2024-08-06] VITALS (11 sets, daily range): BP systolic 89–166; BP diastolic 39–84; BMI 36.5
[2024-08-06 16:13] LABS: % Basophils 0.3 % (0-2); % Immature Granulocytes 0.9 % (0-0.5); % Monocytes 5.3 % (1.7-9.3); % Neutrophils 90.5 % (42.2-75.2); Absolute Immature Granulocytes 0.1 10^3/uL (0-0.05); Absolute Lymphocytes 0.3 10^3/uL (1.2-3.4); Absolute Monocytes 0.6 10^3/uL (0.1-0.6); Absolute Neutrophils 10.4 10^3/uL (1.4-6.5); Hematocrit 28.7 % (39.0-52.0); Hemoglobin 9.9 g/dL (13.0-18.0); Mean Corp Hgb Conc. 34.5 g/dL (33.0-37.0); Mean Corpuscular Hgb 31.2 pg (27.0-31.0); Mean Corpuscular Volume 90.5 fL (80.0-94.0); Mean Platelet Volume 11.3 fL (7.4-10.4); Nucleated Red Blood Cells % 0 % (-); Platelet Count 80 10^3/uL (130-400); Red Blood Cell Count 3.17 10^6/uL (4.70-6.10); Red Cell Dist. Width 15.2 % (11.5-14.5); White Blood Cell Count 11.5 10^3/uL (4.8-10.8)
[2024-08-06 16:24] LABS: ALT (SGPT) 40 U/L (0-50); AST (SGOT) 46 U/L (17-59); Albumin 3.5 g/dl (3.5-5.0); Alkaline Phosphatase 150 U/L (38-126); Blood Urea Nitrogen 83 mg/dl (9-20); Calcium 8.4 mg/dl (8.4-10.2); Carbon Dioxide 25 mmol/L (22-30); Chloride 95 mmol/L (98-107); Estimated Creatinine Clearance 50 ml/min; Glucose 274 mg/dl (70-99); Potassium 3.5 mmol/L (3.5-5.1); Sodium 133 mmol/L (135-145); Total Bilirubin 1.3 mg/dl (0.2-1.3); Total Protein 6.5 g/dl (6.3-8.2); eGFR 41.77
[2024-08-06 16:33] LABS: NT-proBNP 9620 pg/ml
[2024-08-06 16:50] LABS: Venous Blood Gas B.E. 2.9 mmol/L (-4 to +4); Venous Blood Gas HCO3 27.1 mmol/L (22-27); Venous Blood Gas O2 Sat % 99.3 %; Venous Blood Gas pCO2 39 mmHg (35-48); Venous Blood Gas pH 7.45 (7.32-7.43); Venous Blood Gas pO2 111 mmHg (30-50)
[2024-08-06 16:52] LABS: Urine Albumin Negative (Neg - Trace); Urine Bilirubin Negative (Negative); Urine Character Clear (Clear); Urine Color Yellow; Urine Glucose 2+ (Negative); Urine Ketone Negative (Negative); Urine Leukocyte Negative (Negative); Urine Nitrite Negative (Negative); Urine Occult Blood Negative (Negative); Urine Urobilinogen Negative (Neg - 1+)
[2024-08-06 17:20] LABS: B-Hydroxybutyrate 0.31 mmol/L (0.02-0.27)
[2024-08-06] MEDS: BUMEX 1 MG IV (17:47)
[2024-08-06] MEDS: LOPRESSOR 5 MG IV (17:47)
--- NOTE | 2024-08-06 17:47 | EDRN ---
Metoprolol IV was administered per Theodore CHANEL's orders for HR in the 130's
[2024-08-06] MEDS: ADENOCARD 6 MG IV (18:22)
--- NOTE | 2024-08-06 18:30 | EDRN ---
adenosine 6mg IV was administered for SVT in the 130's, the pts HR went down to the 80's, and then the pt went back up to the 130's, Theodore CHANEL was at the pts bedside and is aware
--- NOTE | 2024-08-06 18:31 | ED.GENMED ---
History of Present Illness
General
Chief Complaint: Weakness
Time Seen by Provider: 08/06/24 15:41
History of Present Illness
History of Present Illness:
62-year-old male with history of CHF presents to the emergency department for evaluation of generalized weakness. He states he normally can stand with assistance however feels too weak to do so. States has been compliant with his home medications.
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 Denies chest pain or dyspnea at this time. Does report increased right leg swelling.
Past History
Past History
ED Past Medical History: Arrthythmia, CHF, HTN, Hypercholesterolemia, IDDM and Other (Kidney disease, cirrhosis)
ED Past Surgical History: Orthopedic (Left BKA)
Social History
Tobacco: Non-smoker
Alcohol: None
Drug: None
Personal: Single
Living: correction
Employment: Employed ([employer])
Family History
Family History: Other (Left AKA)
Review of Systems
Review of Systems
Allergies reviewed?: Yes
All Other Systems: ROS reviewed and negative except as documented in HPI and ROS
Phy Exam
Physical Exam
Physical Exam:
GEN: Well appearing, NAD, WDWN
Eyes: PERRLA, EOMs intact, no scleral icterus
HENT: NCAT, oral mucosa moist, no JVD, no cervical adenopathy.
Lungs: Tachypneic, bibasilar rales, no wheezes
Cardiac: RRR, no M/R/G, no peripheral edema. Radial pulses 2+ bilat
Abdomen: Morbid obesity limits exam, gross anasarca
Neuro: AO x 3, no focal deficits to BUE/BLE, normal sensation throughout
MSK: Status post left BKA, marked right lower extremity edema
Skin: No rashes, petechiae. Normal color, no pallor or jaundice.
Psych: Calm, cooperative, proper hygiene
Course
Orders/Labs/Results
Orders:
Orders
08/06/24 15:51
Electrocardiogram (*1) Urgent
Reason for Study: Fatigue / Weakness
EKG- Treatment ONCE
08/06/24 15:57
Complete Blood Count/With Diff Urgent
Comprehensive Metabolic Panel Urgent
NT-proBNP Urgent
TSH Urgent
Comment: ADDON
Urinalysis Reflex To Culture Urgent
Date Specimen was Collected: 08/06/24
Time Specimen was Collected: 15:52
08/06/24 16:09
CR Chest Portable - 1 View Urgent
Comment:
Reason For Exam: weakness, rales
Reason Study Needs to be Portable: Other
08/06/24 16:29
Acetone [B-Hydroxybutyrate] Urgent
Venous Blood Gas Urgent
%Oxygen/Room Air: 97
08/06/24 17:25
Bumetanide [Bumex] 1 mg IV NOW STA
08/06/24 17:38
Add On- LAB Urgent
Tests Added?: TSH
08/06/24 17:40
Metoprolol [Lopressor] 5 mg IV NOW STA
08/06/24 18:20
Adenosine [Adenocard] 6 mg IV NOW STA
Abnormal Lab Results
08/06/24 08/06/24
15:57 16:29
WBC 11.5 H 10^3/uL
(4.8-10.8)
RBC 3.17 L 10^6/uL
(4.70-6.10)
Hgb 9.9 L g/dL
(13.0-18.0)
Hct 28.7 L %
(39.0-52.0)
MCH 31.2 H pg
(27.0-31.0)
RDW 15.2 H %
(11.5-14.5)
Plt Count 80 L 10^3/uL
(130-400)
MPV 11.3 H fL
(7.4-10.4)
Abs Immat Gran (auto) 0.1 H 10^3/uL
(0-0.05)
Absolute Neuts (auto) 10.4 H 10^3/uL
(1.4-6.5)
Absolute Lymphs (auto) 0.3 L 10^3/uL
(1.2-3.4)
Immature Gran % 0.9 H %
(0-0.5)
Neutrophils % 90.5 H %
(42.2-75.2)
Lymphocytes % 3.0 L %
(20.5-51.1)
VBG pH 7.45 H
(7.32-7.43)
VBG pO2 111 H mmHg
(30-50)
VBG HCO3 27.1 H mmol/L
(22-27)
Sodium 133 L mmol/L
(135-145)
Chloride 95 L mmol/L
(98-107)
BUN 83 H mg/dl
(9-20)
Creatinine 1.8 H mg/dL
(0.7-1.3)
Glucose 274 H mg/dl
(70-99)
Alkaline Phosphatase 150 H U/L
(38-126)
Urine Glucose 2+ A
(Negative)
B-Hydroxybutyrate 0.31 H mmol/L
(0.02-0.27)
08/06/24 15:57
08/06/24 15:57
Vital Signs
Initial and Last Documented VS:
Initial Vital Signs
BP
102/68
08/06/24 15:46
Last Documented Vital Signs
Temp Pulse Resp BP Pulse Ox
96.8 F L 136 20 145/71 96
08/06/24 15:52 08/06/24 17:47 08/06/24 15:52 08/06/24 17:47 08/06/24 15:52
MDM/Problems Addressed
MDM/Problems Addressed:
Patient arrives in acute CHF most likely on the basis of persistent SVT. Initially gave IV beta-blockers however no change to heart rate was noted as blood pressure dropped somewhat, was then given 6 mg of IV adenosine with brief conversion to
paced rhythm however recurrent SVT developed shortly thereafter. Discussed case with cardiology, will admit for IV diuresis and further assessment in the morning
*Critical Care Note
Total Time (30-74mins, 75-104mins- exclusive of procedures): Not Applicable
ED Attending Note
-
Portions of this chart may have been created with voice recognition software.� Occasional wrong word or��sound alike� substitutions may have occurred due to the inherent limitations of voice recognition software.
Discharge Plan
Departure
Patient Disposition: Admit
Date of Disposition: 08/06/24
Time of Disposition: 18:34
Admit to: Telemetry
Presentation/result/management discussed w/ accepting MD/DO: Hospitalist
Discharge Problem:
Acute CHF, Sustained SVT
Prescriptions:
No Action
atorvastatin 40 MG tablet
40 mg PO HS
aspirin 81 MG tablet,delayed release (DR/EC)
81 mg PO DAILY
calcitriol 0.25 MCG capsule
0.25 mcg PO DAILY
insulin degludec [Tresiba FlexTouch U-200] 200 unit/mL (3 mL) insulin pen
60 unit SC DAILY
magnesium oxide 500 mg Tablet
500 mg PO DAILY
trazodone 50 mg Tablet
50 mg PO HS PRN (Reason: SLEEP)
Centrum Silver Men [phone] mcg Tablet
1 tab PO DAILY
Xifaxan 550 mg tablet
550 mg PO BID
Patient Comments:
08/18/2023, [facility] states 'twice a week' but pharmacy fill is BID.
cyanocobalamin (vitamin B-12) 1,000 mcg Tablet
1,000 mcg PO QPM
gabapentin 300 mg capsule
300 mg PO BID
levothyroxine 137 mcg tablet
137 mcg PO DAILY@0700
oxycodone 10 mg tablet
10 mg PO Q4HPRN PRN (Reason: moderate pain)
Patient Comments:
09/02/2023: last filled 08/10/23, 150 tabs for 30 days from [id number]
Rx Instructions:
normal takes hydromorphone 8mg prn but pharmacy has been out of them
potassium chloride 20 mEq tablet extended release
20 meq PO DAILY
spironolactone 25 mg Tablet
25 mg PO DAILY 30 Days Qty: 30 0RF
Jardiance 10 mg Tablet
10 mg PO DAILY 30 Days Qty: 30 0RF
insulin aspart U-100 [Novolog FlexPen U-100 Insulin] 100 unit/mL (3 mL) Insulin Pen
14 unit SC AC Qty: 5 0RF
Rx Instructions:
Take 14 units before each meal
metolazone 5 mg Tablet
5 mg PO .MonFr@AM Qty: 20 1RF
Rx Instructions:
Take every Tuesday and Tuesday, in the morning
polyethylene glycol 3350 [HealthyLax] 17 gram Powder In Packet
17 g PO DAILY Qty: 30 1RF
sennosides-docusate sodium 8.6-50 mg Tablet
1 tab PO BID Qty: 60 1RF
metoprolol succinate 50 mg Tablet Extended Release 24 Hr
75 mg PO BID Qty: 90 1RF
tamsulosin 0.4 mg capsule
0.8 mg PO HS Qty: 30 0RF
bumetanide 1 mg Tablet
1 mg PO BID Qty: 60 1RF
Referrals:
UNKNOWN - PT DOES,NOT KNOW [Family Provider] -
Interventions
Interventions:
*Risk Screen - Suicide Last Done: 08/06/24 15:52
*General Assessment Last Done: 08/06/24 15:52
*Neglect/Abuse Screening Last Done: 08/06/24 15:52
ED- Fall Risk Assessment Last Done: 08/06/24 15:52
*ED COVID-19 Vaccine History Last Done: 08/06/24 15:52
ED- Cardiac Assessment Last Done: 08/06/24 15:52
ED- Neurological Assessment Last Done: 08/06/24 15:52
ED- Pulmonary Assessment Last Done: 08/06/24 15:52
Discharge Date and Time
Print Language: SINHALA
--- NOTE | 2024-08-06 18:37 | HPS.HSE ---
Family Physician
-
Family Physician: NOT KNOW UNKNOWN - PT DOES
Chief Complaint
-
Weakness
History of Present Illness
Patient is a 63-year-old male past medical history of heart failure, paroxysmal SVT, atrial flutter, PAD s/p left AKA, DM, CKD who presents with weakness. At baseline he is able to transfer to his wheelchair but today was unable to do so due to
significant generalized weakness. He notes significant increased edema of the right lower extremity. He reports mild shortness of breath. He denies chest pain. He denies fever, sweats or chills.
Medical History
Past Medical History
Past Medical History: Reports Other
Additional Past Medical History:
Chronic HFpEF
Paroxysmal SVT
Atrial FLutter
Peripheral Arterial Disease
Essential Hypertension
HYperlipidemia
Diabetes Mellitus, Type II
CKD Stage IIIA
Anemia of Chronic Disease
Alcoholic Cirrhosis
Hypothyroidism
Peripheral Neuropathy
BPH
Chronic Pain Syndrome
Past Surgical History: Reports Other
Additional Past Surgical History:
Left Above Knee Amputation
Social History
Tobacco: Non-smoker
Alcohol: Former
Drug: None
Family History
Family History: Not pertinent
Allergies / Home Medications
Allergies reflects when Allergies were last updated in [employer].
Home Medications with original date entered in [employer]
Allergy/Medication List:
Allergies
Allergy/AdvReac Type Severity Reaction Status Date / Time
No Known Allergies Allergy Verified 09/02/23 12:32
Home Medications
aspirin 81 mg tablet,delayed release 81 mg PO DAILY Blood clot prevention/tx 09/25/19
atorvastatin 40 mg tablet 40 mg PO HS High cholesterol 09/25/19
calcitriol 0.25 mcg capsule 0.25 mcg PO DAILY Kidney Disease 09/25/19
insulin degludec 200 unit/mL (3 mL) subcutaneous pen (Tresiba FlexTouch U-200 insulin) 60 unit SC DAILY Diabetes 09/20/22
magnesium oxide 500 mg PO DAILY Supplement 05/05/23
trazodone 50 mg tablet 50 mg PO HS PRN SLEEP 07/21/23
gwiwdhmg-ol-ajmac 300 mcg-K 60 mcg-lycop 600 mcg-lutein 300 mcg tablet (Centrum Silver Men) 1 tab PO DAILY Supplement 07/22/23
rifaximin 550 mg tablet (Xifaxan) 550 mg PO BID Liver Issues 08/18/23
cyanocobalamin (vitamin B-12) 1,000 mcg tablet 1,000 mcg PO QPM 09/02/23
gabapentin 300 mg capsule 300 mg PO BID 09/02/23
levothyroxine 137 mcg tablet 137 mcg PO DAILY@0700 09/02/23
oxycodone 10 mg tablet 10 mg PO Q4HPRN PRN moderate pain 09/02/23
potassium chloride 20 mEq tablet,extended release 20 meq PO DAILY Electrolyte Repletion 09/02/23
empagliflozin 10 mg tablet (Jardiance) 10 mg PO DAILY CHF 1 month #30 tabs 02/26/24
spironolactone 25 mg tablet 25 mg PO DAILY CHF 1 month #30 tabs 02/26/24
insulin aspart U-100 100 unit/mL (3 mL) subcutaneous pen (Novolog FlexPen U-100 Insulin aspart) 14 unit (0.14 mL) SC AC #5 ea 03/01/24
metolazone 5 mg tablet 5 mg PO .MonFr@AM #20 tabs 03/02/24
metoprolol succinate 50 mg tablet,extended release 24 hr 75 mg (1.5 x 50 mg) PO BID #90 tabs 03/02/24
polyethylene glycol 3350 17 gram oral powder packet (HealthyLax) 17 g PO DAILY #30 ea 03/02/24
sennosides 8.6 mg-docusate sodium 50 mg tablet 1 tab PO BID #60 tabs 03/02/24
bumetanide 1 mg tablet 1 mg PO BID Fluid Retention/Swelling #60 tabs 03/03/24
tamsulosin 0.4 mg capsule 0.8 mg (2 x 0.4 mg) PO HS prostate #30 caps 03/03/24
Review of Systems
-
A 12 point ROS was completed and negative except as noted: Yes
Constitutional: Denies Fever or Chills
Respiratory: Reports Trouble Breathing; Denies Cough
Cardiac: Denies Chest Pain or Palpitations
Physical Exam
Vital Signs
Vital Signs
Temp Pulse Resp BP Pulse Ox
96.8 F L 136 20 145/71 96
08/06/24 15:52 08/06/24 17:47 08/06/24 15:52 08/06/24 17:47 08/06/24 15:52
Physical Exam
General: Comfortable and Conversant
HEENT: Anicteric and Moist mucous membranes
Respiratory: Rales (Bilateral Bases) and Non Labored Respirations
Cardiac: S1/S2, Regular Rhythm and Tachycardia
GI: Soft and Non Tender
Rectal: Deferred by Provider
Musculoskeletal: No Clubbing, No Cyanosis and Other (Left AKA; Right LE with evidence of lymphedema with increased pitting edema)
Skin: Warm, Dry and Other (Mild erythema RLE with slight increased warmth to touch)
Neuro: Awake, Alert, Oriented and Nonfocal/grossly intact
Psych: Calm
Laboratory Results
-
08/06/24 15:57
08/06/24 15:57
Laboratory Results
Total Bilirubin 1.3 mg/dl (0.2-1.3) 08/06/24 15:57
AST 46 U/L (17-59) 08/06/24 15:57
ALT 40 U/L (0-50) 08/06/24 15:57
Alkaline Phosphatase 150 U/L (38-126) H 08/06/24 15:57
Data Reviewed
-
Diagnostic Radiology: Report Reviewed by me
Lab Data: Labs Reviewed by me
Impression/Plan
-
Acute on Chronic HFpEF
-Consult Cardiology
-Continue Bumex 1mg IV BID
-Continue metolazone 5mg, usually Tuesday and Tuesday - Unclear if patient took today - Will plan for dose in AM then resume usual Tuesday/Tuesday schedule
-Monitor Is&Os and Daily Weights
Paroxysmal SVT
-Patient received adenosine in ED
-ED reviewed with Cardiology
-Plan to continue metoprolol as per prior admission
Right Lower Extremity Cellulitis
-Continue Keflex
Peripheral Arterial Disease s/p Left AKA
-Continue aspirin
Essential Hypertension
Hyperlipidemia
-Continue atorvastatin
Diabetes Mellitus, Type II
-Continue Tresiba
-Continue Jardiance
-Monitor sugars and continue coverage insulin
CKD Stage IIIA
-Creatinine slightly higher than baseline likely due to volume overload
-Monitor creatinine closely while on diuretics
Anemia of Chronic Disease
-Hgb at baseline
Alcoholic Cirrhosis
-Continue Xifaxan
Hypothyroidism
-Continue levothyroxine
Peripheral Neuropathy
-Continue gabapentin
BPH
-Continue Flomax
Chronic Pain Syndrome
-Continue Dilaudid as prior to admission
DVT proph: SC Heparin
Code Status: Full Code
--- NOTE | 2024-08-06 19:03 | PHANOTE ---
med rec tech(08/06/24)-Patient unsure of all medications, family will bring to help confirm all medications currently taking. Confirmed what patient could remember on home med list, awaiting family's return.
[2024-08-06 19:34] LABS: TSH 0.82 uIU/ml (0.47-4.68)
[2024-08-06] MEDS: TOPROL XL 75 MG PO (19:39)
[2024-08-06] MEDS: KEFLEX 1000 MG PO (19:42)
--- NOTE | 2024-08-06 20:57 | W.PN.UPDATE ---
Update Note
Progress Note Update
Attending addendum
Patient seen independently
63-year-old man with the past medical history of:
heart failure,
paroxysmal SVT,
atrial flutter,
PAD s/p left AKA,
insulin dependent DM,
CKD
who presented with weakness. At baseline he is able to transfer to his wheelchair but today was unable to do so due to significant generalized weakness. He notes significant increased edema of the right lower extremity. He reports mild shortness
of breath. He denies chest pain. He denies fever, sweats or chills. He states he has his chronic leg pain, but no new pain. In the ED he had SVT. The SVT resolved during the admit process after he took his beta marcus medication.
Past Medical History
Chronic HFpEF
Paroxysmal SVT
Atrial FLutter
Peripheral Arterial Disease
Essential Hypertension
HYperlipidemia
Diabetes Mellitus, Type II
CKD Stage IIIA
Anemia of Chronic Disease
Alcoholic Cirrhosis
Hypothyroidism
Peripheral Neuropathy
BPH
Chronic Pain Syndrome
Left Above Knee Amputation
Physical Exam
General: Comfortable and Conversant
HEENT: Anicteric and Moist mucous membranes, poor dentition
Respiratory: Rales (Bilateral Bases) and Non Labored Respirations
Cardiac: S1/S2, Regular Rhythm and Tachycardia
GI: Soft and Non Tender
MSK: Left AKA; Right LE with evidence of lymphedema with increased pitting edema
Skin: Mild erythema RLE with slight increased warmth to touch
Psych: Calm
Impression/Plan
1. Acute on Chronic HFpEF - Cardiology consulted
-Bumex 1mg IV BID
-metolazone 5mg, dose in AM then resume usual Tuesday/Tuesday schedule
2. Paroxysmal SVT - now resolved
-continue metoprolol as per prior admission
3. Right Lower Extremity Cellulitis
-Keflex
Please see PA note for full details on:
Peripheral Arterial Disease s/p Left AKA
Essential Hypertension
Diabetes Mellitus, Type II
CKD Stage IIIA
Anemia of Chronic Disease
Alcoholic Cirrhosis
Hypothyroidism
Peripheral Neuropathy
BPH
Chronic Pain Syndrome
DVT proph: SC Heparin
Code Status: Full Code
--- NOTE | 2024-08-06 21:53 | PTCARENOTE ---
received patient from the ED. AAox3. chronic b/l LE pain-01/24. patient states he does not need something right now for pain. A paced on tele 60s. bp 126/56. 95% on RA. RLE cellulitis noted/ +4 edema. doppler pulses present/sites marked. wounds noted
on admission. dressed and cleansed- see documentation. wound care consult. oriented to room. call crowley provided.
[2024-08-06] MEDS: DILAUDID 8 MG PO (22:03)
[2024-08-06] MEDS: LIPITOR 40 MG PO (22:03)
[2024-08-06] MEDS: FLOMAX 0.4 MG PO (22:03)
[2024-08-06 22:08] LABS: Glucose - Point of Care 239 mg/dl (70-99)
[2024-08-06] MEDS: XIFAXAN 550 MG PO (23:44)
[2024-08-07] VITALS (9 sets, daily range): BP systolic 108–140; BP diastolic 53–58; PULSE 62–64; O2SAT 96–97; BMI 40.6
[2024-08-07] MEDS: HEPARIN 5000 UNITS SC ×3 (00:20→18:07)
[2024-08-07] MEDS: SYNTHROID 137 MCG PO (05:22)
[2024-08-07 06:04] LABS: Hematocrit 27.7 % (39.0-52.0); Hemoglobin 9.4 g/dL (13.0-18.0); Mean Corp Hgb Conc. 33.9 g/dL (33.0-37.0); Mean Corpuscular Hgb 31.4 pg (27.0-31.0); Mean Corpuscular Volume 92.6 fL (80.0-94.0); Mean Platelet Volume 11.3 fL (7.4-10.4); Platelet Count 81 10^3/uL (130-400); Red Blood Cell Count 2.99 10^6/uL (4.70-6.10); Red Cell Dist. Width 15.6 % (11.5-14.5); White Blood Cell Count 8.1 10^3/uL (4.8-10.8)
[2024-08-07 06:47] LABS: Blood Urea Nitrogen 82 mg/dl (9-20); Carbon Dioxide 29 mmol/L (22-30); Chloride 97 mmol/L (98-107); Estimated Creatinine Clearance 53 ml/min; Glucose 165 mg/dl (70-99); Magnesium 2.6 mg/dl (1.6-2.3); Potassium 2.6 mmol/L (3.5-5.1); Sodium 136 mmol/L (135-145); eGFR 41.77
--- NOTE | 2024-08-07 07:31 | W.PN.HOSP.TC ---
Today's Communication/Plan
-
hold Metolazone and Lasix with low K
replete with 40 PO and 20 IV; repeat at 11AM --> can then resume diuretics if not dangerously low
F/U further cardiology recommendations
RLE US
Assessment / Plan
Assessment / Plan
Mr. Floyd Agee is a 63 yo man with hx heart failure, paroxysmal SVT, atrial flutter, PAD s/p left AKA, DM, CKD who presents with weakness and increased RLE swelling. ER course complicated by SVT not responsive to IV metoprolol; responded to IV
adenosine but then recurred.
CXR
IMPRESSION:
1. Mild acute interstitial and alveolar cardiogenic pulmonary edema.
2. Mild subsegmental atelectasis/scarring in both lower lungs.
3. Moderate cardiomegaly.
4. Left-sided cardiac pacemaker in place.
5. Previous bilateral posterior thoracic instrumentation.
Acute on Chronic HFpEF
-TTE from 03/10 with EF 65%; he is on Bumex 2mg PO qPM at home
-Consult Cardiology
-hold Bumex with Hypokalemia this AM - will repeat K at 11AM and then re-order
-weights likely inaccurate
-stop metolazone with low K and give when K repleted, usually Tuesday and Tuesday - Unclear if patient took today - Will plan for dose in AM then resume usual Tuesday/Tuesday schedule
-Monitor Is&Os and Daily Weights
-obtain RLE US for swelling
Hypokalemia
-40mEq PO x 1 now and 20mEq IV; repeat at 11AM
Paroxysmal SVT
-Patient received adenosine in ED with conversion to sinus then recurrence; started on oral metoprolol - he is in paced rhythm 60's this AM
-ED reviewed with Cardiology
-Plan to continue metoprolol as per prior admission - Metoprolol succinate 75mg PO BID
Right Lower Extremity Cellulitis
-Continue Keflex 500 QID (day 07/22)
Peripheral Arterial Disease s/p Left AKA
-Continue aspirin
Essential Hypertension
Hyperlipidemia
-Continue atorvastatin
Diabetes Mellitus, Type II
-Continue Tresiba
-Continue Jardiance
-Monitor sugars and continue coverage insulin
CKD Stage IIIA
-Creatinine slightly higher than baseline likely due to volume overload
-Monitor creatinine closely while on diuretics
Anemia of Chronic Disease
-Hgb at baseline
Alcoholic Cirrhosis
-Continue Xifaxan
Hypothyroidism
-Continue levothyroxine
Peripheral Neuropathy
-Continue gabapentin
BPH
-Continue Flomax
Chronic Pain Syndrome
-Continue Dilaudid as prior to admission
DVT proph: SC Heparin
Code Status: Full Code
51 minutes spent on patient care
Anticipated Discharge: > 48 hours
Subjective/Interval History
-
Date of Service: August 07, 2024
states he feels a little bit better
he was very weak over past several days
Objective Data
-
Labs:
Laboratory Results
08/07/24
05:05
WBC 8.1
Hgb 9.4 L
Hct 27.7 L
Plt Count 81 L
Sodium 136
Potassium 2.6 L* D
Chloride 97 L
Carbon Dioxide 29
BUN 82 H
Creatinine 1.8 H
Glucose 165 H
Calcium 8.0 L
Vital Signs:
Vital Signs
Temp Pulse Resp BP Pulse Ox
98.3 F 67 17 113/55 96
08/07/24 04:47 08/07/24 07:15 08/07/24 04:47 08/07/24 04:51 08/07/24 04:47
I&O
01/20/25 01/21/25 01/22/25
06:59 06:59 06:59
Intake Total 250 / 250
Output Total 450 / 450
Balance -200 / -200
Review of Systems
-
History Source: Patient
All other systems: Reviewed and negative
Physical Exam
-
General: No Apparent Distress, Comfortable and Obese
HEENT: Normocephalic, Atraumatic, Moist Mucous Membranes and Anicteric
Respiratory: Rales (Trace, bibasilar) and Non Labored Respirations; Negative Wheezes, Rhonchi or Accessory Resp Muscle Use
Cardiac: Regular Rhythm, S1/S2 and JVD; Negative Murmur, Rub or Gallop
GI: Soft, Nontender, Nondistended and Normal Bowel Sounds
Musculoskeletal: No Clubbing, No Cyanosis and Other (significant RLE swelling; lymphedema; LLE AKA with stump swelling)
Skin: Warm and Dry; Negative Rash
Neuro: AO x 3, Nonfocal/Grossly Intact and Central Nerve's Intact
Psych: Calm
Data Reviewed
-
Diagnostic Radiology: Report Reviewed by me
Labs: Labs Reviewed by me
--- NOTE | 2024-08-07 07:47 | CON.CAR ---
Consultation
Consultation Request
Date/Time Consultation Requested: 08/06/2024 21:30
Date/Time Consultation Performed: 08/07/2024 07:40
Requesting Provider: Kathe Darling PA-C
Performing Provider: MAY Barton for Dr. Junior
Reason for Consultation: Acute on chronic HF
Medical History
-
Chief Complaint: Weakness
History of Present Illness:
Floyd Agee is a 63 year old male (known to Dr. Mcfarland, his primary computer systems hardware analyst), with HFpEF, PAD with BKA, DM, HTN, ETOH cirrhosis, anemia, CKD, HLD, obesity, tachy-kayleigh syndrome with pacemaker, SVT, and chronic LE lymphedema who is here with a
chief complaint of weakness. He endorsed associate RLE swelling. He endorsed mild shortness of breath. He is not sure how much weight he has gained on his home scale. He was found to have SVT that did not respond to intravenous metoprolol. He was
then given adenosine. He reports he had no symptoms while in SVT.
Past Medical History
Past Medical History: Arrhythmias (pSVT, tachy-kayleigh S/P PPM), CHF, HTN, Hypercholesterolemia, Hypothyroidism, IDDM, Renal Failure (CKD) and Other (PAD S/P BKA)
Social History
Tobacco: Non-Smoker
Alcohol: Former
Drug: None
Personal: Single
Living: Other ([facility])
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
Family History
Family History: Reviewed & Not Pertinent
Allergies / Home Medications
Allergy/AdvReac Type Severity Reaction Status Date / Time
No Known Allergies Allergy Verified 09/02/23 12:32
�Medication �Instructions �Recorded �Confirmed �Type
aspirin 81 mg tablet,delayed 81 mg PO DAILY Blood clot 09/25/19 08/06/24 History
release prevention/tx
atorvastatin 40 mg tablet 40 mg PO HS High cholesterol 09/25/19 02/20/24 History
calcitriol 0.25 mcg capsule 0.25 mcg PO DAILY Kidney Disease 09/25/19 08/06/24 History
insulin degludec 200 unit/mL (3 60 unit SC DAILY Diabetes 09/20/22 08/06/24 History
mL) subcutaneous pen (Tresiba
FlexTouch U-200 insulin)
magnesium oxide 500 mg PO DAILY Supplement 05/05/23 08/06/24 History
dfysbwtl-ip-ssimi 300 mcg-K 60 1 tab PO DAILY Supplement 07/22/23 08/06/24 History
mcg-lycop 600 mcg-lutein 300 mcg
tablet (Centrum Silver Men)
rifaximin 550 mg tablet (Xifaxan) 550 mg PO BID Liver Issues 08/18/23 02/20/24 History
cyanocobalamin (vitamin B-12) 1,000 mcg PO QPM 09/02/23 08/06/24 History
1,000 mcg tablet
gabapentin 300 mg capsule 300 mg PO DAILY 09/02/23 08/06/24 History
levothyroxine 137 mcg tablet 137 mcg PO DAILY@0700 09/02/23 08/06/24 History
potassium chloride 20 mEq 40 meq PO DAILY Electrolyte 09/02/23 08/06/24 History
tablet,extended release Repletion
empagliflozin 10 mg tablet 10 mg PO DAILY CHF 1 month #30 tabs 02/26/24 08/06/24 Rx
(Jardiance)
metoprolol succinate 50 mg 75 mg (1.5 x 50 mg) PO BID #90 tabs 03/02/24 Rx
tablet,extended release 24 hr
tamsulosin 0.4 mg capsule 0.8 mg (2 x 0.4 mg) PO HS prostate 03/03/24 Rx
#30 caps
bumetanide 1 mg tablet 2 mg PO QPM Fluid 08/06/24 08/06/24 History
Retention/Swelling
hydromorphone 8 mg tablet 8 mg PO TIDPRN PRN severe pain 08/06/24 08/06/24 History
insulin aspart U-100 100 unit/mL 0 sliding scale dose SC AC 08/06/24 08/06/24 History
(3 mL) subcutaneous pen (Novolog
FlexPen U-100 Insulin aspart)
metolazone 5 mg tablet 5 mg PO MOFR 08/06/24 08/06/24 History
Review of Systems
-
History Source: Patient
All other systems: Negative unless noted
Constitutional: Fatigue
EENT: No Symptoms
Respiratory: No Symptoms
Cardiac: No Symptoms
Abdomen/GI: No Symptoms
: No Symptoms
Musculoskeletal: Edema
Skin: No Symptoms
Neurological: Weakness
Endocrine: No Symptoms
Hematologic/Lymphatic: No Symptoms
Physical Exam
Vital Signs
Temp Pulse Resp BP Pulse Ox
98.3 F 67 17 113/55 96
08/07/24 04:47 08/07/24 07:15 08/07/24 04:47 08/07/24 04:51 08/07/24 04:47
Lab Results
08/07/24 05:05
08/07/24 05:05
Rmh-J-Uhwepvtudbb Pept 9620 pg/ml 08/06/24 15:57
Physical Exam
General: Well Developed, Well Nourished, No Apparent Distress and Comfortable
HEENT: Normocephalic, Anicteric and Moist Mucous Membranes
Respiratory: Clear
Cardiac: S1/S2, Regular Rhythm and Peripheral Edema
Breast: Deferred by me
GI: Soft, Non Tender, Non Distended and Normal Bowel Sounds
Rectal: Deferred by Provider
Genito-urinary: No Costovertebral Tender
Musculoskeletal: No Clubbing and No Cyanosis
Skin: Warm and Dry
Neuro: AO x 3
Hematologic/Lymphatic: No Lymphadenopathy
Psych: Calm
Impression / Plan
-
IMPRESSION/PLAN: 63M with HFpEF, PAD with left BKA, DM, HTN, ETOH cirrhosis, anemia, CKD, HLD, obesity, tachy-kayleigh syndrome S/P MDT pacemaker, SVT, & chronic LE lymphedema presents in acute HF
Primary computer systems hardware analyst: Dr. Mcfarland ([facility])
HFpEF, acute on chronic
-Diuresis with bumetanide 1mg IV BID, he takes bumetanide 2 mg daily at home -- hold AM dose for hypokalemia
-He was discharged at 116kg in February,
-On Jardiance, continue
-Heart failure education
-Update
Hypokalemia, in the setting of potassium wasting diuretic
-Supplementation given, recheck potassium later this morning prior to diuresis
-He was on spironolactone at the time of his prior hospitalization
PSVT
-Previously on sotalol, continue metoprolol
-He reports he was asymptomatic with elevated heart rate yesterday
CKD, Stage IIIa
-Near baseline, follow with diuresis
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
Lymphedema, chronic, he would benefit from lymphedema therapy
Anemia of chronic disease
Type II DM, HgbA1c 8.4%, per primary service
EtOH cirrhosis
PAD S/P left BKA
Obesity, he would benefit from weight loss
Data Reviewed
-
EKG: Report Reviewed by me (AV paced with prolonged AV conduction, rate 61; SVT, rate 135)
Radiology: Report Reviewed by me (CXR: Mild acute interstitial and alveolar cardiogenic pulmonary edema.)
Medical Tests (Nuc Med, Echo etc): Report Reviewed by me
Labs: Labs Reviewed by me
Old Records: Reviewed
[2024-08-07] MEDS: KCL 40 MEQ PO ×2 (08:06→14:08)
[2024-08-07] MEDS: LANTUS 0.6 UNITS SC (08:09)
[2024-08-07] MEDS: NOVOLOG FLEXPEN-MODERATE RESISTANCE 3 UNITS SC (08:10)
[2024-08-07] MEDS: ASPIR LOW (ENTERIC COATED) 81 MG PO (08:12)
[2024-08-07] MEDS: ROCALTROL 0.25 MCG PO (08:12)
[2024-08-07] MEDS: FARXIGA 10 MG PO (08:12)
[2024-08-07] MEDS: KEFLEX 500 MG PO ×4 (08:12→20:40)
[2024-08-07] MEDS: NEURONTIN 300 MG PO (08:13)
[2024-08-07] MEDS: TOPROL XL 75 MG PO ×2 (08:13→20:24)
[2024-08-07] MEDS: XIFAXAN 550 MG PO ×2 (08:14→20:24)
[2024-08-07 08:15] LABS: Glucose - Point of Care 202 mg/dl (70-99)
[2024-08-07] MEDS: KCL 160 MEQ IV (08:15)
[2024-08-07 09:04] LABS: Glycohemoglobin (HgbA1c) 8.4 % (4.0-5.6)
--- NOTE | 2024-08-07 11:19 | WOUNDNOTE ---
Pam BKA SITE
--- NOTE | 2024-08-07 11:21 | WOUNDNOTE ---
L BUTTOCKS AND SACRUM
--- NOTE | 2024-08-07 11:22 | WOUNDNOTE ---
JHONY RN note: Patient admitted with Acute CHF and sustained SVT.
See H&P for complete history. 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
PMH: alcoholic cirrhosis, HF, a fib, lymphedema, BKA, HTN, CKD3a, DM, obesity, anemia, chronic pain, urinary retention, L BKA stump wound debridement, chronic non healing surgical site.
Wound Location and type/assessment: Patient known to service, last seen 03/01/24 for L BKA chronic slow to heal surgical site. Lymphedema in both legs. Today L BKA site much improved, mainly open medially with few tiny openings mid wound. Base of
wound pink with scant adherent slough. Patient confirmed wound care is Santyl and Vashe moist gauze to dry dressing daily. Patient turned with assist of PCT, L flank with purple red bruise and open blister in center, scant drainage. L buttock with
small bruise. R flank and buttock intact. Patient did not know that he had wound on L flank, does not look new. R great toe with old scab from abrasion. Peripheral vascular ultrasound on order for R leg.
Appetite: Good.
Pressure redistribution devices in place: He can turn in bed with assistance. He is on Air bed. Pillow under R leg.
Plan: Called SPD for Vashe, changed all dressings. Will confirm with hospitalist order for L BKA Santyl dressing and L flank adaptic and silicone foam dressing. Applied silicone foam to L buttock and adhesive foam applied to heel to protect. Will
update nurse Leidy and follow as needed.
[2024-08-07] MEDS: SANTYL OINTMENT 1 APPLIC TOPICAL (11:46)
[2024-08-07 11:53] LABS: Potassium 3.1 mmol/L (3.5-5.1)
--- NOTE | 2024-08-07 11:53 | PTCARENOTE ---
Discussed all nursing measures prior to implementation. Report given to 3 W RN. Pt transported to room 3327, via stretcher, on complaint clerk.
--- NOTE | 2024-08-07 12:36 | PTCARENOTE ---
patient arrived to room via stretcher from IVU. arrived aaox3, forgetful, did verbalize understanding of having to use call crowley for assistance, denies pain, able to turn self, vss, will continue to monitor.
[2024-08-07] MEDS: ALDACTONE 25 MG PO (13:40)
[2024-08-07 13:45] LABS: Glucose - Point of Care 311 mg/dl (70-99)
[2024-08-07] MEDS: NOVOLOG FLEXPEN-MODERATE RESISTANCE 7 UNITS SC (13:46)
[2024-08-07] MEDS: KCL 260 MEQ IV (15:49)
[2024-08-07 18:15] LABS: Glucose - Point of Care 299 mg/dl (70-99)
[2024-08-07] MEDS: NOVOLOG FLEXPEN-MODERATE RESISTANCE 5 UNITS SC (18:15)
[2024-08-07] MEDS: DILAUDID 8 MG PO (20:39)
[2024-08-07] MEDS: LIPITOR 40 MG PO (20:40)
[2024-08-07] MEDS: FLOMAX 0.4 MG PO (20:41)
[2024-08-07 22:00] LABS: Glucose - Point of Care 351 mg/dl (70-99)
[2024-08-07 22:23] LABS: Potassium 3.6 mmol/L (3.5-5.1)
[2024-08-08] MEDS: HEPARIN 5000 UNITS SC ×3 (00:40→16:14)
--- NOTE | 2024-08-08 02:09 | DOWNTIME ---
There was a [employer] Client Ticket Collector Downtime on 08/08/2024 from 0100 to 08/08/2023 at 0205 . Downtime documentation of patient's care, including medication administrations, has been reconciled in the electronic record per guidelines. Refer to the
patient's paper chart under the miscellaneous tab to see printed paper medication records and downtime forms.
[2024-08-08 03:00] VITALS: BP 121/60
[2024-08-08] MEDS: SYNTHROID 137 MCG PO (05:12)
[2024-08-08 06:00] VITALS: BMI 41.0
[2024-08-08 06:47] LABS: Blood Urea Nitrogen 77 mg/dl (9-20); Calcium 8.2 mg/dl (8.4-10.2); Carbon Dioxide 28 mmol/L (22-30); Chloride 98 mmol/L (98-107); Estimated Creatinine Clearance 60 ml/min; Glucose 254 mg/dl (70-99); Magnesium 2.7 mg/dl (1.6-2.3); Potassium 3.4 mmol/L (3.5-5.1); eGFR 48.11
[2024-08-08 06:54] LABS: Sodium 135 mmol/L (135-145)
[2024-08-08 07:35] VITALS: BP 127/56
[2024-08-08 07:46] LABS: Glucose - Point of Care 260 mg/dl (70-99)
[2024-08-08] MEDS: LANTUS 0.6 UNITS SC (08:20)
[2024-08-08] MEDS: FARXIGA 10 MG PO (08:24)
[2024-08-08] MEDS: NOVOLOG FLEXPEN-MODERATE RESISTANCE 5 UNITS SC (08:24)
[2024-08-08] MEDS: KEFLEX 500 MG PO ×4 (08:25→22:25)
[2024-08-08] MEDS: KCL 40 MEQ PO ×2 (08:25→09:31)
[2024-08-08] MEDS: ROCALTROL 0.25 MCG PO (08:25)
[2024-08-08] MEDS: XIFAXAN 550 MG PO ×2 (08:25→20:40)
[2024-08-08] MEDS: ASPIR LOW (ENTERIC COATED) 81 MG PO (08:25)
[2024-08-08] MEDS: NEURONTIN 300 MG PO (08:25)
[2024-08-08] MEDS: TOPROL XL 75 MG PO (08:25)
[2024-08-08] MEDS: SANTYL OINTMENT 1 APPLIC TOPICAL (08:27)
[2024-08-08] MEDS: ALDACTONE 25 MG PO (08:27)
--- NOTE | 2024-08-08 08:35 | W.PN.CD ---
Today's Communication / Plan
-
add allyson wrap to left leg
start bumex 1mg bid IV with intensive monitoring
replete K
increase spironolactone
Impression / Plan
-
IMPRESSION/PLAN: 63M with HFpEF, PAD with left BKA, DM, HTN, ETOH cirrhosis, anemia, CKD, HLD, obesity, tachy-kayleigh syndrome S/P MDT pacemaker, SVT, & chronic LE lymphedema presents in acute HF
Primary information resource consultant: Dr. Mcfarland ([facility])
HFpEF, acute on chronic
-Diuresis with bumetanide 1mg IV BID, he takes bumetanide 2 mg daily at home, will give KCL now and tonight
-He was discharged at 116kg in February,
-On Jardiance, continue
-will increase spironolactone tomorrow am dose and watch renal function and k
-Heart failure education
Hypokalemia, in the setting of potassium wasting diuretic
-increase his standing kcl dose
-replete today
PSVT
-Previously on sotalol, continue metoprolol
-He reports he was asymptomatic with elevated heart rate yesterday
CKD, Stage IIIa
-Near baseline, follow with diuresis
Lymphedema, chronic, he would benefit from lymphedema therapy
-will add ALLYSON wrap today
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
Anemia of chronic disease
Type II DM, HgbA1c 8.4%, per primary service
EtOH cirrhosis
PAD S/P left BKA
Obesity, he would benefit from weight loss
Subjective:
left leg feels tight but is improving, no cp or sob
Data Reviewed:
tte 08/07/24
CONCLUSIONS
Normal biventricular size and systolic function without regional wall motion
abnormality.
No significant valvular disease.
Right heart pressures could not be determined.
No pericardial effusion.
No significant change since the prior study of 02/21/2024.
Physical Exam
Vital Signs/Labs
Vital Signs
Temp Pulse Resp BP Pulse Ox
97.9 F 62 18 127/56 97
08/08/24 07:35 08/08/24 07:35 08/08/24 07:35 08/08/24 07:35 08/08/24 07:35
08/07/24 08/08/24 08/09/24
06:59 06:59 06:59
Actual Weight 121 kg 122.243 kg
08/07/24 05:05
08/08/24 06:06
Magnesium 2.7 mg/dl (1.6-2.3) H 08/08/24 06:06
TSH 0.82 uIU/ml (0.47-4.68) 08/06/24 15:57
08/06/24
15:57
Wvd-R-Drcyvmspsjc Pept 9620
Physical Exam
Constitutional: No acute distress
Cardiovascular: Rhythm & rate is regular, Systolic murmur absent, Diastolic murmur absent and Pedal edema present (LEFt leg massive nonpitting edema, right leg is amputated)
Respiratory: Respiratory effort normal, Lungs clear to auscul., Wheeze Absent and Crackles Absent
Data Reviewed
-
Date of Service: August 08, 2024
Medical Decision Making: Review of Case with other Provider (Dr Stevens and nursing add allyson wrap, diuresis)
EKG: Other (tele a pacing)
[2024-08-08] MEDS: HYDROPHOR 1 APPLIC TOPICAL (08:48)
[2024-08-08] MEDS: BUMEX 1 MG IV ×2 (09:28→16:20)
[2024-08-08] MEDS: DILAUDID 8 MG PO ×2 (09:35→20:40)
--- NOTE | 2024-08-08 10:54 | PN.CDI ---
CDI
- -
CDI:
Physician Documentation Request
Admit Date: 08/06/24 19:46
Dear Doctor Hilda,
Please review the following and provide your response in the progress notes.
Clinical Indicators:
- Patient admit for acute CHF
- 08/07 PN 'Chronic Pain Syndrome...Continue Dilaudid as prior to admission'
- per H&P home med Oxycodone 10mg PRN
- 8mg Hydromorphone given x 3
If possible, please provide further specificity as outlined below:
Opioid use with dependence
Opioid dependence
Other (please specify)
Use of terms such as suspected, likely, concern for, or probable (associated with a specific diagnosis that is being evaluated, monitored, or treated as if it exists) are acceptable and can be coded in the inpatient setting, when documented at the
time of discharge.
Thank you,
Adriana Montes RN
CDI Specialist
Please use your independent medical judgment in providing your response.
[2024-08-08 11:09] VITALS: BP 135/55
--- NOTE | 2024-08-08 11:12 | W.PN.HOSP.TC ---
Today's Communication/Plan
-
continue diuresis
monitor K
Assessment / Plan
Assessment / Plan
Mr. Floyd Agee is a 63 yo man with hx heart failure, paroxysmal SVT, atrial flutter, PAD s/p left AKA, DM, CKD who presents with weakness and increased RLE swelling. ER course complicated by SVT not responsive to IV metoprolol; responded to IV
adenosine but then recurred.
CXR
IMPRESSION:
1. Mild acute interstitial and alveolar cardiogenic pulmonary edema.
2. Mild subsegmental atelectasis/scarring in both lower lungs.
3. Moderate cardiomegaly.
4. Left-sided cardiac pacemaker in place.
5. Previous bilateral posterior thoracic instrumentation.
Acute on Chronic HFpEF
-TTE from 03/10 with EF 65%; he is on Bumex 2mg PO qPM at home
-Consult Cardiology
-Bumex held on 08/07 for hypokalemia, renewed this morning
-IV Bumex 1mg BID
-Monitor Is&Os and Daily Weights
-RLE US without DVT
Hypokalemia
-replete and recheck 4PM
Paroxysmal SVT
-Patient received adenosine in ED with conversion to sinus then recurrence; started on oral metoprolol - he is in paced rhythm 60's this AM
-ED reviewed with Cardiology
-Plan to continue metoprolol as per prior admission - Metoprolol succinate 75mg PO BID
Right Lower Extremity Cellulitis
-Continue Keflex 500 QID (day 2)
Peripheral Arterial Disease s/p Left AKA
-Continue aspirin
Essential Hypertension
Hyperlipidemia
-Continue atorvastatin
Diabetes Mellitus, Type II
-Continue Tresiba
-Continue Jardiance
-Monitor sugars and continue coverage insulin
CKD Stage IIIA
-Creatinine slightly higher than baseline likely due to volume overload
-Monitor creatinine closely while on diuretics
Anemia of Chronic Disease
-Hgb at baseline
Alcoholic Cirrhosis
-Continue Xifaxan
Hypothyroidism
-Continue levothyroxine
Peripheral Neuropathy
-Continue gabapentin
BPH
-Continue Flomax
Chronic Pain Syndrome
-Continue Dilaudid as prior to admission
DVT proph: SC Heparin
Code Status: Full Code
51 minutes spent on patient care
Anticipated Discharge: 24 - 48 hours
Subjective/Interval History
-
Date of Service: August 08, 2024
feeling better
leg continues to feel heavy
Objective Data
-
Labs:
Laboratory Results
08/08/24 08/08/24
06:06 16:00
Sodium 135
Potassium 3.4 L Pending
Chloride 98
Carbon Dioxide 28
BUN 77 H
Creatinine 1.6 H
Glucose 254 H
Calcium 8.2 L
Vital Signs:
Vital Signs
Temp Pulse Resp BP Pulse Ox
98.1 F 62 18 135/55 18
08/08/24 11:09 08/08/24 11:09 08/08/24 11:09 08/08/24 11:09 08/08/24 11:09
I&O
08/07/24 08/08/24 08/09/24
06:59 06:59 06:59
Intake Total 250 / 250 2700 / 2700 240 / 240
Output Total 450 / 450 3525 / 3525 250 / 250
Balance -200 / -200 -825 / -825 -10 / -10
Review of Systems
-
History Source: Patient
All other systems: Reviewed and negative
Physical Exam
-
General: No Apparent Distress, Comfortable and Obese
HEENT: Normocephalic, Atraumatic, Moist Mucous Membranes and Anicteric
Respiratory: Rales (Trace, bibasilar) and Non Labored Respirations; Negative Wheezes, Rhonchi or Accessory Resp Muscle Use
Cardiac: Regular Rhythm, S1/S2 and JVD; Negative Murmur, Rub or Gallop
GI: Soft, Nontender, Nondistended and Normal Bowel Sounds
Musculoskeletal: No Clubbing, No Cyanosis and Other (significant RLE swelling; lymphedema; LLE AKA with stump swelling)
Skin: Warm and Dry; Negative Rash
Neuro: AO x 3, Nonfocal/Grossly Intact and Central Nerve's Intact
Psych: Calm
Data Reviewed
-
Diagnostic Radiology: Report Reviewed by me
Labs: Labs Reviewed by me
[2024-08-08 11:48] LABS: Glucose - Point of Care 411 mg/dl (70-99)
[2024-08-08 12:29] LABS: Glucose 364 mg/dl (70-99)
[2024-08-08] MEDS: NOVOLOG FLEXPEN-MODERATE RESISTANCE SC (12:40)
[2024-08-08] MEDS: NOVOLOG FLEXPEN SC (12:41)
[2024-08-08] MEDS: NOVOLOG FLEXPEN 20 UNITS SC (12:50)
[2024-08-08] MEDS: LOPRESSOR 5 MG IV (12:51)
[2024-08-08] MEDS: ADENOCARD 6 MG IV (14:21)
--- NOTE | 2024-08-08 14:38 | CM ---
Patient seen at bedside.
IA completed
Lives in 2 story home at [facility] with felicia fathers/brothers, ramp to enter, resides on 1st floor - elevator to 2nd floor
PLOF: wheelchair, electric scooter
DME: wheelchair, electric scooter, shower chair, commode
[facility] - referral entered in [facility]
[place] in past
Denies insecurities
PCP: Megan Scott
Pharmacy: [facility] [address]
PLAN: Discharge when medically stable, [facility]
[2024-08-08 15:18] VITALS: BP 103/68
[2024-08-08 15:36] LABS: Glucose - Point of Care 340 mg/dl (70-99)
[2024-08-08] MEDS: CARDIZEM 125 IV (16:13)
[2024-08-08] MEDS: NOVOLOG FLEXPEN 15 UNITS SC (16:22)
[2024-08-08 16:24] LABS: Potassium 4.3 mmol/L (3.5-5.1)
[2024-08-08 17:01] LABS: Glucose - Point of Care 374 mg/dl (70-99)
[2024-08-08] MEDS: NOVOLOG FLEXPEN-MODERATE RESISTANCE 9 UNITS SC (18:30)
[2024-08-08] MEDS: NOVOLOG FLEXPEN 5 UNITS SC (18:31)
[2024-08-08 19:00] VITALS: BP 110/73
[2024-08-08] MEDS: TOPROL XL 100 MG PO (20:40)
[2024-08-08 21:50] LABS: Glucose - Point of Care 219 mg/dl (70-99)
[2024-08-08] MEDS: LIPITOR 40 MG PO (22:25)
[2024-08-08] MEDS: FLOMAX 0.4 MG PO (22:25)
[2024-08-08] MEDS: KCL 20 MEQ PO (22:25)
[2024-08-08 23:00] VITALS: BP 130/61
[2024-08-09] VITALS (7 sets, daily range): BP systolic 110–136; BP diastolic 50–74; BMI 37.5
[2024-08-09] MEDS: HEPARIN 5000 UNITS SC ×4 (00:58→23:57)
[2024-08-09 07:07] LABS: Blood Urea Nitrogen 75 mg/dl (9-20); Calcium 8.3 mg/dl (8.4-10.2); Carbon Dioxide 29 mmol/L (22-30); Chloride 97 mmol/L (98-107); Estimated Creatinine Clearance 61 ml/min; Glucose 197 mg/dl (70-99); Potassium 4.2 mmol/L (3.5-5.1); Sodium 135 mmol/L (135-145); eGFR 51.99
[2024-08-09 07:56] LABS: Glucose - Point of Care 232 mg/dl (70-99)
--- NOTE | 2024-08-09 08:51 | W.PN.CD ---
Today's Communication / Plan
-
Continue Diuresis
Constipated and needs bowel regimen
Impression / Plan
-
IMPRESSION/PLAN: 63M with HFpEF, PAD with left BKA, DM, HTN, ETOH cirrhosis, anemia, CKD, HLD, obesity, tachy-kayleigh syndrome S/P MDT pacemaker, SVT, & chronic LE lymphedema presents in acute HF
Primary circuit clerk: Dr. Mcfarland ([facility])
HFpEF, acute on chronic
-Diuresis with bumetanide 1mg IV BID, he takes bumetanide 2 mg daily at home, will give KCL now and tonight
-He was discharged at 116kg in February,
-On Jardiance, continue
-appears to be tolerating spironolactone increased dose
-Heart failure education
Hypokalemia, in the setting of potassium wasting diuretic
-stable
PSVT
-Previously on sotalol, continue metoprolol
-He reports he was asymptomatic with elevated heart rate 08/08
CKD, Stage IIIa
-Near baseline, follow with diuresis
Lymphedema, chronic, he would benefit from lymphedema therapy
-will add ALLYSON wrap today
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
Anemia of chronic disease
Type II DM, HgbA1c 8.4%, per primary service
EtOH cirrhosis
PAD S/P left BKA
Obesity, he would benefit from weight loss
Subjective:
feeling improved today would like to have a BM
Data Reviewed:
tte 08/07/24
CONCLUSIONS
Normal biventricular size and systolic function without regional wall motion
abnormality.
No significant valvular disease.
Right heart pressures could not be determined.
No pericardial effusion.
No significant change since the prior study of 02/21/2024.
Physical Exam
Vital Signs/Labs
Vital Signs
Temp Pulse Resp BP Pulse Ox
98.3 F 62 16 119/65 98
08/09/24 07:30 08/09/24 07:30 08/09/24 07:30 08/09/24 07:30 08/09/24 07:30
08/08/24 08/09/24 08/10/24
06:59 06:59 06:59
Actual Weight 269 lb 8 oz 246 lb 8 oz
08/07/24 05:05
08/09/24 06:05
Magnesium 2.7 mg/dl (1.6-2.3) H 08/08/24 06:06
TSH 0.82 uIU/ml (0.47-4.68) 08/06/24 15:57
08/06/24
15:57
[id number]-Chhepmpxsbw Pept 9620
Physical Exam
Constitutional: No acute distress
EENT: Anicteric
Cardiovascular: Rhythm & rate is regular
Respiratory: Respiratory effort normal and Lungs clear to auscul.
GI: Soft
Neuro/Psych: AO x 3
Data Reviewed
-
Date of Service: August 09, 2024
Medical Decision Making: Reviewed Test Results
EKG: Tracing Personally Visualized and interpreted (sr)
Echo: Report Reviewed by me
Labs: Labs Reviewed by me
[2024-08-09] MEDS: LANTUS 0.6 UNITS SC (08:52)
[2024-08-09] MEDS: DILAUDID 8 MG PO ×2 (08:53→18:32)
[2024-08-09] MEDS: XIFAXAN 550 MG PO ×2 (08:53→20:03)
[2024-08-09] MEDS: NEURONTIN 300 MG PO (08:53)
[2024-08-09] MEDS: ROCALTROL 0.25 MCG PO (08:54)
[2024-08-09] MEDS: KCL 40 MEQ PO (08:54)
[2024-08-09] MEDS: FARXIGA 10 MG PO (08:54)
[2024-08-09] MEDS: TOPROL XL 100 MG PO ×2 (08:54→18:32)
[2024-08-09] MEDS: ASPIR LOW (ENTERIC COATED) 81 MG PO (08:54)
[2024-08-09] MEDS: SYNTHROID 137 MCG PO (08:54)
[2024-08-09] MEDS: KEFLEX 500 MG PO ×4 (08:54→21:43)
[2024-08-09] MEDS: ALDACTONE 50 MG PO (08:54)
[2024-08-09] MEDS: SANTYL OINTMENT 1 APPLIC TOPICAL (08:55)
[2024-08-09] MEDS: BUMEX 1 MG IV ×2 (08:55→17:27)
[2024-08-09] MEDS: NOVOLOG FLEXPEN 5 UNITS SC ×2 (08:56→12:56)
[2024-08-09] MEDS: NOVOLOG FLEXPEN-MODERATE RESISTANCE 3 UNITS SC (08:56)
[2024-08-09] MEDS: HYDROPHOR 1 APPLIC TOPICAL (08:57)
--- NOTE | 2024-08-09 10:12 | W.PN.HOSP.TC ---
Addendum entered and electronically signed by Brit Stevens MD 08/09/24 10:37:
Opioid use with dependence
-continue ELEVATOR REPAIR MECHANIC regimen
Original Note:
Today's Communication/Plan
-
IV Bumex
Bowel regimen
higher dose Metoprolol
Assessment / Plan
Assessment / Plan
Mr. Floyd Agee is a 63 yo man with hx heart failure, paroxysmal SVT, atrial flutter, PAD s/p left AKA, DM, CKD who presents with weakness and increased RLE swelling. ER course complicated by SVT not responsive to IV metoprolol; responded to IV
adenosine but then recurred.
CXR
IMPRESSION:
1. Mild acute interstitial and alveolar cardiogenic pulmonary edema.
2. Mild subsegmental atelectasis/scarring in both lower lungs.
3. Moderate cardiomegaly.
4. Left-sided cardiac pacemaker in place.
5. Previous bilateral posterior thoracic instrumentation.
Acute on Chronic HFpEF
-TTE from 03/10 with EF 65%; he is on Bumex 2mg PO qPM at home
-appreciate Cardiology consult
-Bumex held on 08/07 for hypokalemia, renewed and patient diuresing well
-IV Bumex 1mg BID
-Monitor Is&Os and Daily Weights
-RLE US without DVT
Hypokalemia
-repleted
-started on Spironolactone
Paroxysmal SVT
-Patient received adenosine in ED with conversion to sinus then recurrence; started on oral metoprolol
-Metop XL 75 BID --> increased to 100mg
Right Lower Extremity Cellulitis
-Continue Keflex 500 QID (day 3)
Peripheral Arterial Disease s/p Left AKA
-Continue aspirin
Essential Hypertension
Hyperlipidemia
-Continue atorvastatin
Constipation
-bowel regimen ordered
Diabetes Mellitus, Type II
-Continue Tresiba
-Continue Jardiance
-Monitor sugars and continue coverage insulin
CKD Stage IIIA
-Creatinine slightly higher than baseline likely due to volume overload
-Monitor creatinine closely while on diuretics
Anemia of Chronic Disease
-Hgb at baseline
Alcoholic Cirrhosis
-Continue Xifaxan
Hypothyroidism
-Continue levothyroxine
Peripheral Neuropathy
-Continue gabapentin
BPH
-Continue Flomax
Chronic Pain Syndrome
-Continue Dilaudid as prior to admission
DVT proph: SC Heparin
Code Status: Full Code
51 minutes spent on patient care
Anticipated Discharge: 24 - 48 hours
Subjective/Interval History
-
Date of Service: August 09, 2024
main complaint is constipation
he is urinating a lot and leg feels less swollen
Objective Data
-
Labs:
Laboratory Results
08/09/24
06:05
Sodium 135
Potassium 4.2
Chloride 97 L
Carbon Dioxide 29
BUN 75 H
Creatinine 1.5 H
Glucose 197 H
Calcium 8.3 L
Vital Signs:
Vital Signs
Temp Pulse Resp BP Pulse Ox
98.3 F 62 16 119/65 98
08/09/24 07:30 08/09/24 07:30 08/09/24 07:30 08/09/24 07:30 08/09/24 07:30
I&O
08/08/24 08/09/24 08/10/24
06:59 06:59 06:59
Intake Total 2700 / 2700 1440 / 1440
Output Total 3525 / 3525 3325 / 3325
Balance -825 / -825 -1885 / -1885
Review of Systems
-
History Source: Patient
All other systems: Reviewed and negative
Physical Exam
-
General: No Apparent Distress, Comfortable and Obese
HEENT: Normocephalic, Atraumatic, Moist Mucous Membranes and Anicteric
Respiratory: Rales (Trace, bibasilar) and Non Labored Respirations; Negative Wheezes, Rhonchi or Accessory Resp Muscle Use
Cardiac: Regular Rhythm, S1/S2 and JVD; Negative Murmur, Rub or Gallop
GI: Soft, Nontender, Nondistended and Normal Bowel Sounds
Musculoskeletal: No Clubbing, No Cyanosis and Other (significant RLE swelling; lymphedema; LLE AKA with stump swelling)
Skin: Warm and Dry; Negative Rash
Neuro: AO x 3, Nonfocal/Grossly Intact and Central Nerve's Intact
Psych: Calm
Data Reviewed
-
Diagnostic Radiology: Report Reviewed by me
Labs: Labs Reviewed by me
[2024-08-09] MEDS: MIRALAX 17 GRAMS PO (10:59)
[2024-08-09] MEDS: COLACE 100 MG PO ×2 (10:59→20:03)
[2024-08-09 12:15] LABS: Glucose - Point of Care 319 mg/dl (70-99)
[2024-08-09] MEDS: NOVOLOG FLEXPEN-MODERATE RESISTANCE 7 UNITS SC (12:57)
[2024-08-09] MEDS: DULCOLAX 10 MG RECTAL (16:21)
[2024-08-09 16:48] LABS: Glucose - Point of Care 263 mg/dl (70-99)
[2024-08-09] MEDS: NOVOLOG FLEXPEN 15 UNITS SC (17:26)
[2024-08-09] MEDS: NOVOLOG FLEXPEN-MODERATE RESISTANCE 5 UNITS SC (17:27)
[2024-08-09] MEDS: LOPRESSOR 5 MG IV (18:03)
--- NOTE | 2024-08-09 18:04 | PTCARENOTE ---
Pt with heart rate sustaining in the 140's. Dr Stevens paged and made aware. IV Lopressor ordered and administered.
[2024-08-09] MEDS: CARDIZEM IV (20:03)
[2024-08-09] MEDS: CARDIZEM 125 IV (20:38)
--- NOTE | 2024-08-09 20:59 | PTCARENOTE ---
Pt's HR still sustaining in 140s, instructed dayshift nurse to have this RN restart cardizem gtt if toprol does not bring HR down. BAD WORK GATHERER notified, cardizem gtt reordered. New IV needed, VAT team notified and new RFA IV placed. Cardizem gtt running
at 5mg/hr.
Pt ordered enema if colace/miralax and suppository does not work. Enema explained to pt in detail multiple times, pt refused. Scheduled colace given. Pt having difficulty urinating, bladder scan due at 2215.
Pt also refusing Q2t and placing legs on pillows. Education provided. Call crowley within reach and plan of care ongoing.
[2024-08-09] MEDS: FLOMAX 0.8 MG PO (21:43)
[2024-08-09] MEDS: LIPITOR 40 MG PO (21:43)
[2024-08-09 22:36] LABS: Glucose - Point of Care 141 mg/dl (70-99)
[2024-08-10] VITALS (9 sets, daily range): BP systolic 102–144; BP diastolic 54–68; PULSE 94; O2SAT 94; BMI 37.6
--- NOTE | 2024-08-10 00:37 | PTCARENOTE ---
Pt had small BM, still refusing enema. Bladder scanned for >835, EXCHANGE ENGINEER notified. Duran ordered. 16f duran placed, 900mls of clear yellow urine out. call crowley within reach and plan of care ongoing.
--- NOTE | 2024-08-10 01:37 | PTCARENOTE ---
Addendum entered by Pari Conteh RN 08/10/24 06:46:
FITNESS MANAGER added order to hold cardizem gtt. gtt placed in standby. HR 60s-70s. Plan of care ongoing.
Original Note:
Pt's HR at 2235 was sustaining in 130s, FITNESS MANAGER notified. Cardizem gtt ordered to increase to 10mg/hr. BP 110/72.
At 0110, pt's HR back in 60s and A-paced on monitor. FITNESS MANAGER notified, Cardizem gtt lowered to 5mg/hr. BP 118/55. Plan of care ongoing.
[2024-08-10 07:00] LABS: Blood Urea Nitrogen 77 mg/dl (9-20); Calcium 8.3 mg/dl (8.4-10.2); Carbon Dioxide 27 mmol/L (22-30); Chloride 96 mmol/L (98-107); Estimated Creatinine Clearance 57 ml/min; Glucose 113 mg/dl (70-99); Potassium 3.8 mmol/L (3.5-5.1); Sodium 134 mmol/L (135-145); eGFR 48.11
[2024-08-10] MEDS: SYNTHROID 137 MCG PO (07:22)
[2024-08-10 07:46] LABS: Glucose - Point of Care 117 mg/dl (70-99)
[2024-08-10] MEDS: NOVOLOG FLEXPEN-MODERATE RESISTANCE SC ×3 (09:03→17:10)
[2024-08-10] MEDS: NEURONTIN 300 MG PO (09:04)
[2024-08-10] MEDS: FARXIGA 10 MG PO (09:04)
[2024-08-10] MEDS: MIRALAX 17 GRAMS PO (09:04)
[2024-08-10] MEDS: ROCALTROL 0.25 MCG PO (09:04)
[2024-08-10] MEDS: KEFLEX 500 MG PO ×4 (09:04→22:57)
[2024-08-10] MEDS: XIFAXAN 550 MG PO ×2 (09:04→20:32)
[2024-08-10] MEDS: KCL 40 MEQ PO (09:04)
[2024-08-10] MEDS: ASPIR LOW (ENTERIC COATED) 81 MG PO (09:05)
[2024-08-10] MEDS: TOPROL XL 100 MG PO ×2 (09:05→20:30)
[2024-08-10] MEDS: COLACE 100 MG PO ×2 (09:05→20:30)
[2024-08-10] MEDS: BUMEX 1 MG IV (09:06)
[2024-08-10] MEDS: ALDACTONE 50 MG PO (09:06)
[2024-08-10] MEDS: SANTYL OINTMENT 1 APPLIC TOPICAL (09:07)
[2024-08-10] MEDS: HEPARIN 5000 UNITS SC ×3 (09:07→22:58)
[2024-08-10] MEDS: NOVOLOG FLEXPEN 15 UNITS SC ×2 (09:08→13:23)
[2024-08-10] MEDS: LANTUS 0.6 UNITS SC (09:10)
[2024-08-10] MEDS: DILAUDID 8 MG PO ×2 (09:23→20:30)
[2024-08-10] MEDS: HYDROPHOR 1 APPLIC TOPICAL (09:33)
--- NOTE | 2024-08-10 09:37 | W.PN.CD ---
Today's Communication / Plan
-
Bowel regimen
Resume home bumex 2 mg
Dilt 180 for PSVT
We will sign off please call with questions/concerns.
Impression / Plan
-
IMPRESSION/PLAN: 63M with HFpEF, PAD with left BKA, DM, HTN, ETOH cirrhosis, anemia, CKD, HLD, obesity, tachy-kayleigh syndrome S/P MDT pacemaker, SVT, & chronic LE lymphedema presents in acute HF
Primary floriculturist: Dr. Mcfarland ([facility])
HFpEF, acute on chronic
-PO bumex 2 mg, he is feeling much improved
-He was discharged at 116kg in February,
-On Jardiance, continue
-appears to be tolerating spironolactone increased dose
-Heart failure education
Hypokalemia, in the setting of potassium wasting diuretic
-stable
PSVT
-Previously on sotalol, continue metoprolol
-He reports he was asymptomatic with elevated heart rate 08/08
- will add dilt 180 mg for this, can f/u with outpatient provider
CKD, Stage IIIa
-Near baseline, follow with diuresis
Lymphedema, chronic, he would benefit from lymphedema therapy
-will add ALLYSON wrap today
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
Anemia of chronic disease
Type II DM, HgbA1c 8.4%, per primary service
EtOH cirrhosis
PAD S/P left BKA
Obesity, he would benefit from weight loss
Subjective:
feeling improved today would like to have a BM
Data Reviewed:
tte 08/07/24
CONCLUSIONS
Normal biventricular size and systolic function without regional wall motion
abnormality.
No significant valvular disease.
Right heart pressures could not be determined.
No pericardial effusion.
No significant change since the prior study of 02/21/2024.
Physical Exam
Vital Signs/Labs
Vital Signs
Temp Pulse Resp BP Pulse Ox
98.9 F 64 17 118/54 96
08/10/24 03:51 08/10/24 09:05 08/10/24 03:51 08/10/24 09:05 08/10/24 03:51
08/09/24 08/10/24 08/11/24
06:59 06:59 06:59
Actual Weight 246 lb 8 oz 247 lb 8 oz
08/07/24 05:05
08/10/24 06:15
Magnesium 2.7 mg/dl (1.6-2.3) H 08/08/24 06:06
TSH 0.82 uIU/ml (0.47-4.68) 08/06/24 15:57
08/06/24
15:57
Idl-V-Xyjvjxgtchd Pept 9620
Physical Exam
Constitutional: No acute distress and Comfortable
EENT: Anicteric
Cardiovascular: Rhythm & rate is regular and Other (lymphedema )
Respiratory: Respiratory effort normal and Lungs clear to auscul.
GI: Soft
Neuro/Psych: AO x 3
Data Reviewed
-
Date of Service: August 10, 2024
Medical Decision Making: Reviewed Test Results
EKG: Tracing Personally Visualized and interpreted (sr)
Echo: Report Reviewed by me
Labs: Labs Reviewed by me
[2024-08-10] MEDS: CARDIZEM CD 180 MG PO (09:44)
--- NOTE | 2024-08-10 10:10 | W.PN.HOSP.TC ---
Addendum entered and electronically signed by Brit Stevens MD 08/10/24 10:20:
oral Dlitiazem added for SVT
Original Note:
Today's Communication/Plan
-
treat constipation
then perform voiding trial
hopefully can remove duran prior to DC
Assessment / Plan
Assessment / Plan
Mr. Floyd Agee is a 63 yo man with hx heart failure, paroxysmal SVT, atrial flutter, PAD s/p left AKA, DM, CKD who presents with weakness and increased RLE swelling. ER course complicated by SVT not responsive to IV metoprolol; responded to IV
adenosine but then recurred.
CXR
IMPRESSION:
1. Mild acute interstitial and alveolar cardiogenic pulmonary edema.
2. Mild subsegmental atelectasis/scarring in both lower lungs.
3. Moderate cardiomegaly.
4. Left-sided cardiac pacemaker in place.
5. Previous bilateral posterior thoracic instrumentation.
Acute on Chronic HFpEF
-TTE from 03/10 with EF 65%; he is on Bumex 2mg PO qPM at home
-appreciate Cardiology consult
-Bumex held on 08/07 for hypokalemia, renewed and patient diuresing well
-s/p IV Bumex 1mg BID - transitioned back to oral per Cardiology
-Monitor Is&Os and Daily Weights
-RLE US without DVT
Urinary retention
-s/p Duran
-UA clear on admit
-in setting of constipation therefore need to effectively treat constipation before voiding trial
Constipation
-Miralax, Colace
-refused enema last night - will give today
Hypokalemia
-repleted
-started on Spironolactone
Paroxysmal SVT
-Patient received adenosine in ED with conversion to sinus then recurrence; started on oral metoprolol
-Metop XL 75 BID --> increased to 100mg
Right Lower Extremity Cellulitis
-Continue Keflex 500 QID (day 3)
Peripheral Arterial Disease s/p Left AKA
-Continue aspirin
Essential Hypertension
Hyperlipidemia
-Continue atorvastatin
Constipation
-bowel regimen ordered
Diabetes Mellitus, Type II
-Continue Tresiba
-Continue Jardiance
-Monitor sugars and continue coverage insulin
CKD Stage IIIA
-Creatinine slightly higher than baseline likely due to volume overload
-Monitor creatinine closely while on diuretics
Anemia of Chronic Disease
-Hgb at baseline
Alcoholic Cirrhosis
-Continue Xifaxan
Hypothyroidism
-Continue levothyroxine
Peripheral Neuropathy
-Continue gabapentin
BPH
-Continue Flomax
Chronic Pain Syndrome
-Continue Dilaudid as prior to admission
DVT proph: SC Heparin
Code Status: Full Code
51 minutes spent on patient care
Anticipated Discharge: Within 24 hours
Subjective/Interval History
-
Date of Service: August 10, 2024
has duran in
remains constipated without significant BM
Objective Data
-
Labs:
Laboratory Results
08/10/24
06:15
Sodium 134 L
Potassium 3.8
Chloride 96 L
Carbon Dioxide 27
BUN 77 H
Creatinine 1.6 H
Glucose 113 H
Calcium 8.3 L
Vital Signs:
Vital Signs
Temp Pulse Resp BP Pulse Ox
98.9 F 64 17 118/54 96
08/10/24 03:51 08/10/24 09:44 08/10/24 03:51 08/10/24 09:44 08/10/24 03:51
I&O
08/09/24 08/10/24 08/11/24
06:59 06:59 06:59
Intake Total 1440 / 1440 1200 / 1200
Output Total 3325 / 3325 3500 / 3500
Balance -188 / -188 -2299 / -2299
Review of Systems
-
History Source: Patient
All other systems: Reviewed and negative
Physical Exam
-
General: No Apparent Distress, Comfortable and Obese
HEENT: Normocephalic, Atraumatic, Moist Mucous Membranes and Anicteric
Respiratory: Rales (Trace, bibasilar) and Non Labored Respirations; Negative Wheezes, Rhonchi or Accessory Resp Muscle Use
Cardiac: Regular Rhythm, S1/S2 and JVD; Negative Murmur, Rub or Gallop
GI: Soft, Nontender, Nondistended and Normal Bowel Sounds
Musculoskeletal: No Clubbing, No Cyanosis and Other (significant RLE swelling; lymphedema; LLE AKA with stump swelling)
Skin: Warm and Dry; Negative Rash
Neuro: AO x 3, Nonfocal/Grossly Intact and Central Nerve's Intact
Psych: Calm
Data Reviewed
-
Diagnostic Radiology: Report Reviewed by me
Labs: Labs Reviewed by me
[2024-08-10 12:15] LABS: Glucose - Point of Care 145 mg/dl (70-99)
--- NOTE | 2024-08-10 13:01 | CM ---
Reviewed PT notes, patient functioning close to Baseline. Patient wants resumption of care with [facility]. Will update their admissions as to when patient is being discharge.
Plan: Case management will continue to follow and assist with discharge planning. Home with [facility] services through [place].
--- NOTE | 2024-08-10 13:49 | PTCARENOTE ---
pt given milk and molasses enema, pt had 2 large, solid stools, and multiple golf ball sized stools, pt reports feeling much better
[2024-08-10 17:10] LABS: Glucose - Point of Care 74 mg/dl (70-99)
[2024-08-10] MEDS: NOVOLOG FLEXPEN SC (17:10)
[2024-08-10 22:02] LABS: Glucose - Point of Care > 600 mg/dl (70-99)
[2024-08-10] MEDS: FLOMAX 0.8 MG PO (22:57)
[2024-08-10] MEDS: LIPITOR 40 MG PO (22:58)
[2024-08-11 00:05] LABS: Glucose 109 mg/dl (70-99)
[2024-08-11 03:00] VITALS: BP 113/50
[2024-08-11 05:06] VITALS: BMI 40.3
[2024-08-11] MEDS: SYNTHROID 137 MCG PO (06:23)
[2024-08-11 07:52] LABS: Glucose - Point of Care 89 mg/dl (70-99)
[2024-08-11] MEDS: NOVOLOG FLEXPEN 15 UNITS SC ×2 (09:06→11:42)
[2024-08-11] MEDS: NOVOLOG FLEXPEN-MODERATE RESISTANCE SC (09:07)
[2024-08-11] MEDS: KEFLEX 500 MG PO ×2 (09:08→11:43)
[2024-08-11] MEDS: XIFAXAN 550 MG PO (09:09)
[2024-08-11] MEDS: ROCALTROL 0.25 MCG PO (09:09)
[2024-08-11] MEDS: BUMEX 2 MG PO (09:09)
[2024-08-11] MEDS: COLACE 100 MG PO (09:09)
[2024-08-11] MEDS: TOPROL XL 100 MG PO (09:09)
[2024-08-11] MEDS: MIRALAX 17 GRAMS PO (09:09)
[2024-08-11] MEDS: FARXIGA 10 MG PO (09:09)
[2024-08-11] MEDS: SANTYL OINTMENT 1 APPLIC TOPICAL (09:09)
[2024-08-11] MEDS: CARDIZEM CD 180 MG PO (09:10)
[2024-08-11] MEDS: HEPARIN 5000 UNITS SC (09:10)
[2024-08-11] MEDS: ALDACTONE 50 MG PO (09:10)
[2024-08-11] MEDS: KCL 40 MEQ PO (09:10)
[2024-08-11] MEDS: NEURONTIN 300 MG PO (09:10)
[2024-08-11] MEDS: ASPIR LOW (ENTERIC COATED) 81 MG PO (09:10)
[2024-08-11] MEDS: HYDROPHOR 1 APPLIC TOPICAL (09:11)
[2024-08-11] MEDS: LANTUS 0.6 UNITS SC (09:11)
[2024-08-11] MEDS: DILAUDID 8 MG PO (09:24)
[2024-08-11 09:27] VITALS: BP 118/70
--- NOTE | 2024-08-11 09:44 | W.PN.HOSP.TC ---
Today's Communication/Plan
-
OK for DC today
Assessment / Plan
Assessment / Plan
Mr. Floyd Agee is a 63 yo man with hx heart failure, paroxysmal SVT, atrial flutter, PAD s/p left AKA, DM, CKD who presents with weakness and increased RLE swelling. ER course complicated by SVT not responsive to IV metoprolol; responded to IV
adenosine but then recurred.
CXR
IMPRESSION:
1. Mild acute interstitial and alveolar cardiogenic pulmonary edema.
2. Mild subsegmental atelectasis/scarring in both lower lungs.
3. Moderate cardiomegaly.
4. Left-sided cardiac pacemaker in place.
5. Previous bilateral posterior thoracic instrumentation.
Acute on Chronic HFpEF
-TTE from 03/10 with EF 65%; he is on Bumex 2mg PO qPM at home
-appreciate Cardiology consult
-Bumex held on 08/07 for hypokalemia, renewed and patient diuresing well
-s/p IV Bumex 1mg BID - transitioned back to oral per Cardiology
-Monitor Is&Os and Daily Weights
-RLE US without DVT
Urinary retention
-s/p duran; now that constipation treated patient able to urinate on his own
Constipation
-Miralax, Colace
-refused enema last night - will give today
Hypokalemia
-repleted
-started on Spironolactone
Paroxysmal SVT
-Patient received adenosine in ED with conversion to sinus then recurrence; started on oral metoprolol
-Metop XL 75 BID --> increased to 100mg
-new start Diltiazem
Right Lower Extremity Cellulitis
-Continue Keflex 500 QID (day 3)
Peripheral Arterial Disease s/p Left AKA
-Continue aspirin
Essential Hypertension
Hyperlipidemia
-Continue atorvastatin
Constipation
-bowel regimen ordered
Diabetes Mellitus, Type II
-Continue Tresiba
-Continue Jardiance
-Monitor sugars and continue coverage insulin
CKD Stage IIIA
-Creatinine slightly higher than baseline likely due to volume overload
-Monitor creatinine closely while on diuretics
Anemia of Chronic Disease
-Hgb at baseline
Alcoholic Cirrhosis
-Continue Xifaxan
Hypothyroidism
-Continue levothyroxine
Peripheral Neuropathy
-Continue gabapentin
BPH
-Continue Flomax
Chronic Pain Syndrome
-Continue Dilaudid as prior to admission
DVT proph: SC Heparin
Code Status: Full Code
51 minutes spent on patient care
Anticipated Discharge: Today
Subjective/Interval History
-
Date of Service: August 11, 2024
had a BM yesterday and urinated without duran this morning
feels ready to DC
Objective Data
-
Labs:
Laboratory Results
08/10/24
23:39
Glucose 109 H
Vital Signs:
Vital Signs
Temp Pulse Resp BP Pulse Ox
98.1 F 60 20 118/70 95
08/11/24 09:27 08/11/24 09:27 08/11/24 09:27 08/11/24 09:27 08/11/24 09:27
I&O
08/10/24 08/11/24 08/12/24
06:59 06:59 06:59
Intake Total 1200 / 1200 1320 / 1320
Output Total 3500 / 3500 2450 / 2450
Balance -2300 / -2300 -1130 / -1130
Review of Systems
-
History Source: Patient
All other systems: Reviewed and negative
Physical Exam
-
General: No Apparent Distress, Comfortable and Obese
HEENT: Normocephalic, Atraumatic, Moist Mucous Membranes and Anicteric
Respiratory: Rales (Trace, bibasilar) and Non Labored Respirations; Negative Wheezes, Rhonchi or Accessory Resp Muscle Use
Cardiac: Regular Rhythm and S1/S2; Negative Murmur, Rub or Gallop
GI: Soft, Nontender, Nondistended and Normal Bowel Sounds
Musculoskeletal: No Clubbing, No Cyanosis and Other (b/l LE swelling much improved; left AKA )
Skin: Warm and Dry; Negative Rash
Neuro: AO x 3, Nonfocal/Grossly Intact and Central Nerve's Intact
Psych: Calm
Data Reviewed
-
Diagnostic Radiology: Report Reviewed by me
Labs: Labs Reviewed by me
--- NOTE | 2024-08-11 09:59 | W.DS.TRANS ---
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
-
Discharge Instructions:
Sleep Apnea Risk High
Discharge Diagnosis/Procedures heart failure exacerbation, supraventricular
tachycardia (fast heart rate), constipation and
urinary retention now resolved
Diet Restrict fluids to 48 oz,Low Sodium
Activity As tolerated
Driving Restrictions As prior to admission
Blood Work BMP on Tuesday08/14/24
Other Services VN,PT,OT
Specialty Instructions Weigh Daily
Instructions: *PCP/Other Senior Treasury Consultant Heart Failure Instructions
Stand-Alone Forms:
Changes to Home Medications: Yes
Discharge Medications:
DC Medications w/original date entered in [employer]
aspirin 81 mg tablet,delayed release 81 mg PO DAILY Blood clot prevention/tx 09/25/19
atorvastatin 40 mg tablet 40 mg PO HS High cholesterol 09/25/19
calcitriol 0.25 mcg capsule 0.25 mcg PO DAILY Kidney Disease 09/25/19
insulin degludec 200 unit/mL (3 mL) subcutaneous pen (Tresiba FlexTouch U-200 insulin) 60 unit SC DAILY Diabetes 09/20/22
magnesium oxide 500 mg PO DAILY Supplement 05/05/23
cmxmgllg-cb-gxlvg 300 mcg-K 60 mcg-lycop 600 mcg-lutein 300 mcg tablet (Centrum Silver Men) 1 tab PO DAILY Supplement 07/22/23
rifaximin 550 mg tablet (Xifaxan) 550 mg PO BID Liver Issues 08/18/23
cyanocobalamin (vitamin B-12) 1,000 mcg tablet 1,000 mcg PO QPM Supplement 09/02/23
gabapentin 300 mg capsule 300 mg PO DAILY Neurological Condition 09/02/23
levothyroxine 137 mcg tablet 137 mcg PO DAILY@0700 Thyroid 09/02/23
potassium chloride 20 mEq tablet,extended release 40 meq PO DAILY Electrolyte Repletion 09/02/23
empagliflozin 10 mg tablet (Jardiance) 10 mg PO DAILY CHF 1 month #30 tabs 02/26/24
tamsulosin 0.4 mg capsule 0.8 mg (2 x 0.4 mg) PO HS prostate #30 caps 03/03/24
hydromorphone 8 mg tablet 8 mg PO TIDPRN PRN severe pain 08/06/24
insulin aspart U-100 100 unit/mL (3 mL) subcutaneous pen (Novolog FlexPen U-100 Insulin aspart) 0 sliding scale dose SC AC Diabetes 08/06/24
metolazone 5 mg tablet 5 mg PO MOFR Fluid Retention/Swelling 08/06/24
bumetanide 2 mg tablet 2 mg PO DAILY #0 tabs 08/11/24
diltiazem HCl 180 mg capsule,extended release 24 hr 180 mg PO DAILY #30 caps 08/11/24
metoprolol succinate 100 mg tablet,extended release 24 hr 100 mg PO BID #60 tabs 08/11/24
polyethylene glycol 3350 17 gram oral powder packet 17 g PO DAILY #30 ea 08/11/24
spironolactone 25 mg tablet 50 mg (2 x 25 mg) PO DAILY #60 tabs 08/11/24
white petrolatum 42 % topical ointment (Hydrophor) 1 applic topical DAILY #100 grams 08/11/24
Home Medication Changes
Continue oral Bumex - 2mg daily
You are started on another diuretic - Spironolactone 50mg daily - this helps keep potassium levels up
Given fast heart rates, your Metoprolol XL is increased from 75mg to 100mg twice a day (stop the 75mg twice a day).
You are also started on Diltiazem to help with rate control
Take Miralax daily to help treat constipation
Pending Results: No
[2024-08-11 11:05] VITALS: BP 125/57
[2024-08-11 11:42] LABS: Glucose - Point of Care 155 mg/dl (70-99)
[2024-08-11] MEDS: NOVOLOG FLEXPEN-MODERATE RESISTANCE 1 UNITS SC (11:42)
--- NOTE | 2024-08-11 13:06 | W.DCSUMMARY ---
Discharge Summary
Discharge Data
Date of Admission: 08/06/24
Date of Discharge: 08/11/24
-
Pending Results: No
Hospital Course
Discharging Physician : Dr. Brit Stevens
Disposition : Home with Home Health
Principal Discharge diagnosis : heart failure exacerbation, supraventricular tachycardia, constipation and urinary retention now resolved
Hospital Course :
Mr. Floyd Agee is a 63 yo man with hx heart failure, paroxysmal SVT, atrial flutter, PAD s/p left AKA, DM, CKD who presents with weakness and increased RLE swelling found to be in acute heart failure. CXR with e/o pulmonary edema. LE US without DVT.
ER course complicated by SVT.
Patient was admitted to medicine with Cardiology consulting. He was diuresed effectively with drop in weight from 121 kg to 112 kg (weight on 08/11 ready as 120 kg and inaccurate as exam remains improved). TTE repeated which showed no significant
change from prior 02/21/24. Hospital course complicated by hypokalemia. He was started on Spironolactone 50mg daily with stable electrolytes prior to DC. Repeat BMP is ordered for Tuesday08/14/24.
He intermittently went into SVT during hospitalization. Metoprolol XL dosing increased from 75mg to 100mg twice a day. He was also started on oral Diltiazem with stable rates for 24 hours prior to discharge.
Hospital course complicated by urinary retention requiring duran catheter likely related to constipation. Constipation treated and patient passed voiding trial prior to DC.
HH is ordered at [place]. He is told to follow up with his Sales Enablement Lead soon after discharge.
Time spent on discharge was 35 minutes.
Important imaging findings :
CXR
IMPRESSION:
1. Mild acute interstitial and alveolar cardiogenic pulmonary edema.
2. Mild subsegmental atelectasis/scarring in both lower lungs.
3. Moderate cardiomegaly.
4. Left-sided cardiac pacemaker in place.
5. Previous bilateral posterior thoracic instrumentation.
CONCLUSIONS
Normal biventricular size and systolic function without regional wall motion
abnormality.
No significant valvular disease.
Right heart pressures could not be determined.
No pericardial effusion.
No significant change since the prior study of 02/21/2024.
Indications:
acute HFPEF
Procedure findings :
Discharge Plan
-
Patient Disposition: Home (Routine Discharge)
Discharge Diagnosis/Procedures: heart failure exacerbation, supraventricular tachycardia (fast heart rate), constipation and urinary retention now resolved
Diet: Low Sodium and Restrict fluids to 48 oz
Activity: As tolerated
Driving Restrictions: As prior to admission
Blood Work: BMP on Tuesday08/14/24
Other Services: VN, PT and OT
Specialty Instructions: Weigh Daily- Call MD for wt gain/loss 3 lbs overnight/5 lbs in 1 week
Activity Restrictions/Additional Instructions:
Wound Care Instructions
L amp site: Clean with saline, Santyl to slough followed by vashe moistened gauze and dry dressing change daily and prn drainage.
L flank: clean with saline, adaptic and silicone foam dressing change q 2 days and prn drainage.
L buttock: clean with soap and water, silicone foam change q 2-3 days and prn soilage
R leg elevation
Resume compression and lymphedema pumps as scheduled.
Follow up at wound care center call for an appointment.
Follow up with your Sales Enablement Lead, Dr. Mcfarland within the next 1-2 weeks (let office know you were just hospitalized)
Instructions: *PCP/Other Sales Enablement Lead Heart Failure Instructions
Referrals:
[facility].Visiting Nurse [Outside]
UNKNOWN - PT DOES,NOT KNOW [Family Provider] -
Additional Discharge Medication Instructions: Continue oral Bumex - 2mg daily
You are started on another diuretic - Spironolactone 50mg daily - this helps keep potassium levels up
Given fast heart rates, your Metoprolol XL is increased from 75mg to 100mg twice a day (stop the 75mg twice a day).
You are also started on Diltiazem to help with rate control
Take Miralax daily to help treat constipation
Prescriptions:
New
bumetanide 2 mg Tablet
2 mg PO DAILY Qty: 0 0RF
diltiazem HCl 180 mg Capsule,Extended Release 24hr
180 mg PO DAILY Qty: 30 0RF
spironolactone 25 mg Tablet
50 mg PO DAILY Qty: 60 0RF
white petrolatum [Hydrophor] 42 % Ointment
1 applic topical DAILY Qty: 100 0RF
polyethylene glycol 3350 17 gram Powder In Packet
17 g PO DAILY Qty: 30 0RF
metoprolol succinate 100 mg Tablet Extended Release 24 Hr
100 mg PO BID Qty: 60 0RF
Continued
atorvastatin 40 MG tablet
40 mg PO HS
aspirin 81 MG tablet,delayed release (DR/EC)
81 mg PO DAILY
calcitriol 0.25 MCG capsule
0.25 mcg PO DAILY
insulin degludec [Tresiba FlexTouch U-200] 200 unit/mL (3 mL) insulin pen
60 unit SC DAILY
magnesium oxide 500 mg Tablet
500 mg PO DAILY
Centrum Silver Men [id number] mcg Tablet
1 tab PO DAILY
Xifaxan 550 mg tablet
550 mg PO BID
cyanocobalamin (vitamin B-12) 1,000 mcg Tablet
1,000 mcg PO QPM
gabapentin 300 mg capsule
300 mg PO DAILY
levothyroxine 137 mcg tablet
137 mcg PO DAILY@0700
potassium chloride 20 mEq tablet extended release
40 meq PO DAILY
Jardiance 10 mg Tablet
10 mg PO DAILY 30 Days Qty: 30 0RF
tamsulosin 0.4 mg capsule
0.8 mg PO HS Qty: 30 0RF
hydromorphone 8 mg Tablet
8 mg PO TIDPRN PRN (Reason: severe pain)
metolazone 5 mg tablet
5 mg PO MOFR
insulin aspart U-100 [Novolog FlexPen U-100 Insulin] 100 unit/mL (3 mL) insulin pen
0 sliding scale dose SC AC
Discontinued
metoprolol succinate 50 mg Tablet Extended Release 24 Hr
75 mg PO BID Qty: 90 1RF
bumetanide 1 mg tablet
2 mg PO QPM
Discharge Orders:
Discharge Patient (As Directed); Ordered 08/11/24
Ordered By: Brit Stevens
Care Plan Goals
Care Plan Goals:
Problem: Readiness for enhanced knowledge related to diagnosis and treatment plan
Goal: Understand your diagnosis and treatment plan needs, including medications if applicable.
Instructions: Know your diagnosis, underlying causes and treatment plan options, including medications if applicable. Consult with your health care team to learn about your diagnosis and treatment plan, including medications if applicable.
Discharge Date and Time
Print Language: SINHALA
[2024-08-11 14:00] VITALS: BP 115/48
--- NOTE | 2024-08-11 14:23 | CM ---
Addendum entered by NADIA Puckett 08/11/24 15:19:
another one of the brothers at [facility] came with w/c and slide board to sampler pickup patient.
Original Note:
gave reverse unit operator fax for [facility] home care. Filled out papers for ambulance transfer back home.
[2024-08-11 15:31] VITALS: BP 115/48
== END 2024-08-11 15:24 | disposition home health service (06) | DRG 291 ==
LOC: 3 WEST ACU 19:46
PROVIDERS: Physician Assistant; Physician Assistant Medical; ADMITTING PHYSICIAN Internal Medicine; ATTENDING PHYSICIAN Student in an Organized Health Care Education/Training Program; EMERGENCY PHYSICIAN Emergency Medicine; OTHER PHYSICIAN Internal Medicine Cardiovascular Disease
DX: I13.0 Hypertensive heart and chronic kidney disease with heart failure and stage 1 through stage 4 chronic kidney disease, or unspecified chronic kidney disease (principal); I50.33 Acute on chronic diastolic (congestive) heart failure; I47.19 Other supraventricular tachycardia; L03.115 Cellulitis of right lower limb; J98.11 Atelectasis; I48.92 Unspecified atrial flutter; Z68.41 Body mass index [BMI] 40.0-44.9, adult; F11.20 Opioid dependence, uncomplicated; Z89.612 Acquired absence of left leg above knee; N18.31 Chronic kidney disease, stage 3a; E11.22 Type 2 diabetes mellitus with diabetic chronic kidney disease; E11.51 Type 2 diabetes mellitus with diabetic peripheral angiopathy without gangrene; D63.8 Anemia in other chronic diseases classified elsewhere; K70.30 Alcoholic cirrhosis of liver without ascites; E03.9 Hypothyroidism, unspecified; E11.40 Type 2 diabetes mellitus with diabetic neuropathy, unspecified; N40.1 Benign prostatic hyperplasia with lower urinary tract symptoms; G89.4 Chronic pain syndrome; Z95.0 Presence of cardiac pacemaker; E87.6 Hypokalemia; K59.00 Constipation, unspecified; E78.00 Pure hypercholesterolemia, unspecified; E66.9 Obesity, unspecified; I34.81 Nonrheumatic mitral (valve) annulus calcification; Z79.4 Long term (current) use of insulin; Z79.82 Long term (current) use of aspirin
CPT/HCPCS: 71045; 80048; 80053; 81003; 82010; 82805; 82947; 82962; 83036; 83735; 83880; 84132; 84443; 85025; 85027; 87070; 93005; 93306; 93971; 96374; 96375; 97163; 97166; 97530; 99285; J0153

== ENCOUNTER 2024-10-09 18:15 | Inpatient (IN) | payer OTHER, SELFPAY ==
[2024-10-09] VITALS (10 sets, daily range): BP systolic 91–151; BP diastolic 58–69; BMI 41.3
[2024-10-09 14:25] LABS: % Basophils 0.5 % (0-2); % Eosinophils 3.1 % (0-6); % Immature Granulocytes 0.2 % (0-0.5); % Lymphocytes 6.5 % (20.5-51.1); % Neutrophils 81.7 % (42.2-75.2); Absolute Eosinophils 0.1 10^3/uL (0-0.7); Absolute Lymphocytes 0.3 10^3/uL (1.2-3.4); Absolute Monocytes 0.3 10^3/uL (0.1-0.6); Absolute Neutrophils 3.4 10^3/uL (1.4-6.5); Hematocrit 28.3 % (39.0-52.0); Hemoglobin 9.5 g/dL (13.0-18.0); Mean Corp Hgb Conc. 33.6 g/dL (33.0-37.0); Mean Corpuscular Hgb 30.1 pg (27.0-31.0); Mean Corpuscular Volume 89.6 fL (80.0-94.0); Mean Platelet Volume 10.8 fL (7.4-10.4); Nucleated Red Blood Cells % 0 % (-); Platelet Count 112 10^3/uL (130-400); Red Blood Cell Count 3.16 10^6/uL (4.70-6.10); Red Cell Dist. Width 13.9 % (11.5-14.5); White Blood Cell Count 4.1 10^3/uL (4.8-10.8)
[2024-10-09 14:41] LABS: ALT (SGPT) 186 U/L (0-50); AST (SGOT) 208 U/L (17-59); Albumin 3.1 g/dl (3.5-5.0); Alkaline Phosphatase 924 U/L (38-126); Blood Urea Nitrogen 73 mg/dl (9-20); Calcium 8.2 mg/dl (8.4-10.2); Carbon Dioxide 26 mmol/L (22-30); Chloride 97 mmol/L (98-107); Glucose 178 mg/dl (70-99); Potassium 2.7 mmol/L (3.5-5.1); Sodium 136 mmol/L (135-145); Total Bilirubin 5.2 mg/dl (0.2-1.3); Total Protein 6.2 g/dl (6.3-8.2); eGFR 36.81
--- NOTE | 2024-10-09 15:37 | ED.GENMED ---
History of Present Illness
<Blaise Leong PA-C - Last Filed: 10/10/24 07:15>
General
Chief Complaint: Abnormal Lab Value
Source: patient and records
Time Seen by Provider: 10/09/24 15:07
History of Present Illness
History of Present Illness:
63-year-old male with past medical history of hypertension, hyperlipidemia, CHF, alcoholic liver cirrhosis, insulin-dependent diabetes presenting to the emergency department for evaluation of 'abnormal blood work'. Patient states that he had
routine labs done yesterday with primary care provider and was told that he had abnormal labs but is unsure as to what labs were exactly abnormal. Patient states he feels as if he is in his usual state of health although does note a couple people
at his living facility told him 'my face looked a little bit different'. Patient denies any abdominal pain, nausea, vomiting, bowel changes, urinary symptoms, chest pain, shortness of breath, fevers or infectious symptoms or any other concerns at
present. Patient notes that he does not get around and is rather sedentary, needs significant assistance for any type of movement.
Past History
<Blaise Leong PA-C - Last Filed: 10/10/24 07:15>
Past History
ED Past Medical History: Arrthythmia, CHF, HTN, Hypercholesterolemia, IDDM and Other (Kidney disease, cirrhosis)
ED Past Surgical History: Orthopedic (Left BKA)
Social History
Tobacco: Non-smoker
Alcohol: None
Drug: None
Personal: Single
Living: [facility]
Employment: Employed ([employer])
Family History
Family History: Other (Left AKA)
Review of Systems
<Blaise Leong PA-C - Last Filed: 10/10/24 07:15>
Review of Systems
All Other Systems: ROS reviewed and negative except as documented in HPI and ROS
Phy Exam
<Blaise Leong PA-C - Last Filed: 10/10/24 07:15>
Physical Exam
Physical Exam:
GENERAL: Alert , in no apparent distress, appears older than stated age, chronically ill-appearing
HEAD: Normocephalic atraumatic
EYE: Icteric sclera
NECK: Supple
ENT: o/p clr, mmm.
CARDIAC: Regular rate and rhythm .
LUNGS: Clear breath sounds bilaterally, no acute respiratory distress, no wheezes/rales/rhonchi
ABDOMEN: Soft, without focal tenderness, no r/g, no cvat, distended with ascites
NEUROLOGICAL: Alert and oriented
SKIN: Warm and dry, skin intact.
MUSCULOSKELETAL: Left BKA. Significant lymphedema and venous stasis changes to the right lower extremity
PSYCH: Normal and appropriate interaction.
Scores
<Blaise Leong PA-C - Last Filed: 10/10/24 07:15>
Heart Failure Risk
Heart Failure Risk Score: Not Applicable
Heart Score for Chest Pain Patients
STEMI patient?: Not applicable
Withdrawal Assessment of Alcohol
Withdrawal Assessment Completed?: Not applicable
Course
<NING Jackson Last Filed: 10/10/24 07:15>
Orders/Labs/Results
Orders:
Orders
10/09/24 13:38
Complete Blood Count/With Diff Urgent
Comprehensive Metabolic Panel Urgent
Direct Bilirubin Urgent
Comment: ADD ON
Lipase Urgent
Comment: ADD ON
Magnesium Urgent
Phosphorus Urgent
10/09/24 Dinner
NPO
Allow oral meds: Yes
Allow clear liquids: No
10/09/24 15:09
Electrocardiogram (*1) Urgent
Reason for Study: Other
Other Reason for Exam: hypokalemia
EKG- Treatment ONCE
10/09/24 15:10
CT Abd/pel Without Iv Or Oral Urgent
Comment:
Reason For Exam: hepatic/renal failure
Potassium Chloride [KCl] 40 meq PO NOW STA
10/09/24 15:50
Potassium Chloride [KCl] 40 meq 0.9% Sodium Chloride 250 ml [Nss] 250 ml IV NOW
10/09/24 16:12
PTT Urgent
Prothrombin Time Urgent
10/09/24 17:20
US Abdomen Complete/Upper Urgent
Comment:
Reason For Exam: elevated lfts
10/09/24 17:59
Urinalysis Reflex To Culture Urgent
Date Specimen was Collected: 10/09/24
Time Specimen was Collected: 17:56
10/09/24 18:06
Admit/Transfer Patient As Directed
Co-Sign Provider:
Level of Care: Inpatient admission
Assign to:: Telemetry
Physician / Group: Manish Marsh
Diagnosis: Transaminitis, Ascites, WALDO on CKD stage IIIa, Hypokalemia
Reason for Telemetry: Arrhythmia
Date to Stop Telemetry: 10/12/24
Time to Stop Telemetry: 11:00
Reason for Hospitalization: Transaminitis, Ascites, WADLO on CKD stage IIIa, Hypokalemia
Expected length of stay greater than two midnights?: Yes
ELOS- Estimated Length of Stay in days: 3
I certify the patient meets the requirements for IP care: Yes
PRN Pain Medication Management As Directed
May give lesser potent ordered pain med per pt: Yes
preference::
Protocol:: Medication orders for pain may be administered in a
manner that supports deferring to patient preference
when the pt is:
- Requesting an ordered lesser potent pain medication.
Least to most potent pain medications are defined
as: acetaminophen < NSAID < tramadol < opioids
(morphine, oxycodone, hydromorphone).
- Requesting a lesser dose of the same medication IF
ORDERED.
- Requesting a less intrusive route of administration
if both routes are prescribed by the provider (PO <
IV).
10/09/24 18:09
Code Status As Directed
Resuscitation Status: Full Code
10/09/24 19:48
Polyethylene Glycol Powder [Miralax] 17 grams PO DAILYPRN PRN
10/09/24 19:48
Activity As Directed
Activity Level: With Assistance
Intake/ Output As Directed
Frequency: Per unit guidelines
Vital Signs As Directed
Frequency: Per unit guidelines
Weight As Directed
Frequency: Daily
DX Deep Vein Thrombosis Video Routine
10/09/24 20:00
Gabapentin [Neurontin] 300 mg PO BID
Rifaximin [Xifaxan] 550 mg PO BID
10/09/24 20:36
HYDROmorphone [Dilaudid] 8 mg PO TIDPRN PRN
10/09/24 22:00
Atorvastatin [Lipitor] 40 mg PO HS
Tamsulosin [Flomax] 0.8 mg PO HS
10/10/24 00:00
Heparin 5,000 units SC Q8
10/10/24 05:46
Comprehensive Metabolic Panel IN AM
10/10/24 06:00
Complete Blood Count/No Diff IN AM
Levothyroxine [Synthroid] 137 mcg PO DAILY@0600
10/10/24 08:00
Aspirin Low Dose EC [Aspir Low (Enteric Coated)] 81 mg PO DAILY
Calcitriol [Rocaltrol] 0.25 mcg PO DAILY
Diltiazem Extended Release [Cardizem Cd] 180 mg PO DAILY
Magnesium Oxide 500 mg PO DAILY
Multivitamin [Theragran] 1 tablet PO DAILY
Potassium Chloride [KCl] 40 meq PO DAILY
insulin degludec [Tresiba FlexTouch U-200] 30 unit SC DAILY
10/10/24 18:00
Cyanocobalamin [Vitamin B-12] 1,000 mcg PO QPM
10/10/24 22:00
Basic Metabolic Panel Routine
10/11/24 06:00
Complete Blood Count/No Diff IN AM
Comprehensive Metabolic Panel IN AM
10/12/24 06:00
Complete Blood Count/No Diff IN AM
Comprehensive Metabolic Panel IN AM
10/12/24 11:00
DC Protocol for Telemetry ONCE
Abnormal Lab Results
10/09/24 10/09/24
13:38 16:12
WBC 4.1 L 10^3/uL
(4.8-10.8)
RBC 3.16 L 10^6/uL
(4.70-6.10)
Hgb 9.5 L g/dL
(13.0-18.0)
Hct 28.3 L %
(39.0-52.0)
Plt Count 112 L 10^3/uL
(130-400)
MPV 10.8 H fL
(7.4-10.4)
Absolute Lymphs (auto) 0.3 L 10^3/uL
(1.2-3.4)
Neutrophils % 81.7 H %
(42.2-75.2)
Lymphocytes % 6.5 L %
(20.5-51.1)
PT 16.6 H Sec
(11.4-14.6)
Potassium 2.7 L* mmol/L
(3.5-5.1)
Chloride 97 L mmol/L
(98-107)
BUN 73 H mg/dl
(9-20)
Creatinine 2.0 H mg/dL
(0.7-1.3)
Glucose 178 H mg/dl
(70-99)
Calcium 8.2 L mg/dl
(8.4-10.2)
Magnesium 2.9 H mg/dl
(1.6-2.3)
Total Bilirubin 5.2 H mg/dl
(0.2-1.3)
Direct Bilirubin 3.8 H mg/dl
(0.0-0.4)
AST 208 H U/L
(17-59)
ALT 186 H U/L
(0-50)
Alkaline Phosphatase 924 H U/L
(38-126)
Total Protein 6.2 L g/dl
(6.3-8.2)
Albumin 3.1 L g/dl
(3.5-5.0)
10/09/24 13:38
10/09/24 13:38
Vital Signs
Initial and Last Documented VS:
Initial Vital Signs
Temp Pulse Resp BP Pulse Ox
97.8 F 68 16 151/68 97
10/09/24 13:26 10/09/24 13:26 10/09/24 13:26 10/09/24 13:26 10/09/24 13:26
Last Documented Vital Signs
Temp Pulse Resp BP Pulse Ox
97.8 F 65 20 119/51 97
10/10/24 03:05 10/10/24 03:05 10/10/24 03:05 10/10/24 03:05 10/10/24 03:05
<Brijesh Hobbs, DO - Last Filed: 10/09/24 16:11>
Orders/Labs/Results
Orders:
Orders
10/09/24 13:38
Complete Blood Count/With Diff Urgent
Comprehensive Metabolic Panel Urgent
Direct Bilirubin Urgent
Comment: ADD ON
Lipase Urgent
Comment: ADD ON
Magnesium Urgent
Phosphorus Urgent
10/09/24 Dinner
NPO
Allow oral meds: Yes
Allow clear liquids: No
10/09/24 15:09
Electrocardiogram (*1) Urgent
Reason for Study: Other
Other Reason for Exam: hypokalemia
EKG- Treatment ONCE
10/09/24 15:10
CT Abd/pel Without Iv Or Oral Urgent
Comment:
Reason For Exam: hepatic/renal failure
Potassium Chloride [KCl] 40 meq PO NOW STA
10/09/24 15:50
Potassium Chloride [KCl] 40 meq 0.9% Sodium Chloride 250 ml [Nss] 250 ml IV NOW
10/09/24 16:12
PTT Urgent
Prothrombin Time Urgent
10/09/24 17:20
US Abdomen Complete/Upper Urgent
Comment:
Reason For Exam: elevated lfts
10/09/24 17:59
Urinalysis Reflex To Culture Urgent
Date Specimen was Collected: 10/09/24
Time Specimen was Collected: 17:56
10/09/24 18:06
Admit/Transfer Patient As Directed
Co-Sign Provider:
Level of Care: Inpatient admission
Assign to:: Telemetry
Physician / Group: Manish Marsh
Diagnosis: Transaminitis, Ascites, WALDO on CKD stage IIIa, Hypokalemia
Reason for Telemetry: Arrhythmia
Date to Stop Telemetry: 10/12/24
Time to Stop Telemetry: 11:00
Reason for Hospitalization: Transaminitis, Ascites, WALDO on CKD stage IIIa, Hypokalemia
Expected length of stay greater than two midnights?: Yes
ELOS- Estimated Length of Stay in days: 3
I certify the patient meets the requirements for IP care: Yes
PRN Pain Medication Management As Directed
May give lesser potent ordered pain med per pt: Yes
preference::
Protocol:: Medication orders for pain may be administered in a
manner that supports deferring to patient preference
when the pt is:
- Requesting an ordered lesser potent pain medication.
Least to most potent pain medications are defined
as: acetaminophen < NSAID < tramadol < opioids
(morphine, oxycodone, hydromorphone).
- Requesting a lesser dose of the same medication IF
ORDERED.
- Requesting a less intrusive route of administration
if both routes are prescribed by the provider (PO <
IV).
10/09/24 18:09
Code Status As Directed
Resuscitation Status: Full Code
10/09/24 19:48
Polyethylene Glycol Powder [Miralax] 17 grams PO DAILYPRN PRN
10/09/24 19:48
Activity As Directed
Activity Level: With Assistance
Intake/ Output As Directed
Frequency: Per unit guidelines
Vital Signs As Directed
Frequency: Per unit guidelines
Weight As Directed
Frequency: Daily
DX Deep Vein Thrombosis Video Routine
10/09/24 20:00
Gabapentin [Neurontin] 300 mg PO BID
Rifaximin [Xifaxan] 550 mg PO BID
10/09/24 20:36
HYDROmorphone [Dilaudid] 8 mg PO TIDPRN PRN
10/09/24 22:00
Atorvastatin [Lipitor] 40 mg PO HS
Tamsulosin [Flomax] 0.8 mg PO HS
10/10/24 00:00
Heparin 5,000 units SC Q8
10/10/24 05:46
Comprehensive Metabolic Panel IN AM
10/10/24 06:00
Complete Blood Count/No Diff IN AM
Levothyroxine [Synthroid] 137 mcg PO DAILY@0600
10/10/24 08:00
Aspirin Low Dose EC [Aspir Low (Enteric Coated)] 81 mg PO DAILY
Calcitriol [Rocaltrol] 0.25 mcg PO DAILY
Diltiazem Extended Release [Cardizem Cd] 180 mg PO DAILY
Magnesium Oxide 500 mg PO DAILY
Multivitamin [Theragran] 1 tablet PO DAILY
Potassium Chloride [KCl] 40 meq PO DAILY
insulin degludec [Tresiba FlexTouch U-200] 30 unit SC DAILY
10/10/24 18:00
Cyanocobalamin [Vitamin B-12] 1,000 mcg PO QPM
10/10/24 22:00
Basic Metabolic Panel Routine
10/11/24 06:00
Complete Blood Count/No Diff IN AM
Comprehensive Metabolic Panel IN AM
10/12/24 06:00
Complete Blood Count/No Diff IN AM
Comprehensive Metabolic Panel IN AM
10/12/24 11:00
DC Protocol for Telemetry ONCE
Abnormal Lab Results
10/09/24 10/09/24
13:38 16:12
WBC 4.1 L 10^3/uL
(4.8-10.8)
RBC 3.16 L 10^6/uL
(4.70-6.10)
Hgb 9.5 L g/dL
(13.0-18.0)
Hct 28.3 L %
(39.0-52.0)
Plt Count 112 L 10^3/uL
(130-400)
MPV 10.8 H fL
(7.4-10.4)
Absolute Lymphs (auto) 0.3 L 10^3/uL
(1.2-3.4)
Neutrophils % 81.7 H %
(42.2-75.2)
Lymphocytes % 6.5 L %
(20.5-51.1)
PT 16.6 H Sec
(11.4-14.6)
Potassium 2.7 L* mmol/L
(3.5-5.1)
Chloride 97 L mmol/L
(98-107)
BUN 73 H mg/dl
(9-20)
Creatinine 2.0 H mg/dL
(0.7-1.3)
Glucose 178 H mg/dl
(70-99)
Calcium 8.2 L mg/dl
(8.4-10.2)
Magnesium 2.9 H mg/dl
(1.6-2.3)
Total Bilirubin 5.2 H mg/dl
(0.2-1.3)
Direct Bilirubin 3.8 H mg/dl
(0.0-0.4)
AST 208 H U/L
(17-59)
ALT 186 H U/L
(0-50)
Alkaline Phosphatase 924 H U/L
(38-126)
Total Protein 6.2 L g/dl
(6.3-8.2)
Albumin 3.1 L g/dl
(3.5-5.0)
10/09/24 13:38
10/09/24 13:38
Vital Signs
Initial and Last Documented VS:
Initial Vital Signs
Temp Pulse Resp BP Pulse Ox
97.8 F 68 16 151/68 97
10/09/24 13:26 10/09/24 13:26 10/09/24 13:26 10/09/24 13:26 10/09/24 13:26
Last Documented Vital Signs
Temp Pulse Resp BP Pulse Ox
97.8 F 65 20 119/51 97
10/10/24 03:05 10/10/24 03:05 10/10/24 03:05 10/10/24 03:05 10/10/24 03:05
<Blaise Leong PA-C - Last Filed: 10/10/24 07:15>
MDM/Problems Addressed
Differential Diagnosis Includes:
Labs initiated in triage show significant chemistry derangement
Hypokalemia, acute kidney injury, significant liver dysfunction.
Choledocholithiasis, medication side effect, malignancy
MDM/Problems Addressed:
63-year-old male presenting the ER for evaluation of abnormal blood work that was done as an outpatient yesterday. Patient stating he feels as if he is in his usual state of health. Labs noted for significant derangement including hypokalemia,
significant transaminitis and acute kidney injury. Will add on additional labs. Will replete patient's potassium. CT of the abdomen and pelvis ordered. Plan for admission.
Chronic conditions affecting care: DM and Other (Congestive heart failure, alcoholic liver cirrhosis)
<Blaise Leong PA-C - Last Filed: 10/10/24 07:15>
*Radiology
Radiology exam reviewed: radiology read reviewed
*Pulse Oximetry
Patient hypoxic: no
*Critical Care Note
Total Time (30-74mins, 75-104mins- exclusive of procedures): Not Applicable
Data Reviewed
Review of Other/Old Records Reveals: Labs and Records
<Blaise Leong PA-C - Last Filed: 10/10/24 07:15>
Patient Management
Discussion with other providers: Hospitalist
Escalation/DeEscalation of care consider admission/obs:
CT scan with mostly chronic findings. Suspect given patient's chronic medical conditions this is all acute on chronic but given significant electrolyte derangement and worsening hepatic/renal function plan for admission for continued care and
evaluation. Hospitalist team aware and accepts for continued evaluation and treatment
ED Attending Note
<Blaise Leong PA-C - Last Filed: 10/10/24 07:15>
-
Portions of this chart may have been created with voice recognition software.� Occasional wrong word or��sound alike� substitutions may have occurred due to the inherent limitations of voice recognition software.
<Brijesh Hobbs DO - Last Filed: 10/09/24 16:11>
ED Attending Note
Patient seen and examined by attending physician: Yes
I performed the substantive portion of visit, reviewed & personally made and approve the management plan that is documented in note by myself or ALEX.: Yes
ED Attending Note:
I evaluated patient at bedside. Elevated BMI, scleral icterus, marked lower extremity edema with hypertrophic skin changes, but appears fairly comfortable with relatively unremarkable vital signs. Worsening renal function and markedly elevated alk
phos with worsening total bilirubin. CT imaging being obtained. Planning admission to the hospital.
Discharge Plan
Departure
Patient Disposition: Admit
Date of Disposition: 10/09/24
Time of Disposition: 16:47
Presentation/result/management discussed w/ accepting MD/DO: Hospitalist
Discharge Problem:
WALDO (acute kidney injury), Liver failure, Acute hypokalemia
Interventions
Interventions:
*Risk Screen - Suicide Last Done: 10/09/24 15:44
*General Assessment Last Done: 10/09/24 17:00
*Neglect/Abuse Screening Last Done: 10/09/24 15:44
*ED- Fall Risk Assessment Last Done: 10/09/24 15:44
*ED COVID-19 Vaccine History Last Done: 10/09/24 15:44
*Nursing Disposition Last Done: 10/09/24 19:31
Discharge Date and Time
Discharge Date/Time: 10/09/24 19:33
[2024-10-09] MEDS: KCL 40 MEQ PO (16:17)
[2024-10-09 16:21] LABS: Lipase 205 U/L (23-300); Magnesium 2.9 mg/dl (1.6-2.3); Phosphorus 4.1 mg/dl (2.5-4.5)
[2024-10-09 16:36] LABS: INR 1.32; PT 16.6 Sec (11.4-14.6)
[2024-10-09] MEDS: KCL 270 MEQ IV (16:38)
--- NOTE | 2024-10-09 16:59 | HPS.HSE ---
Family Physician
-
Family Physician: Megan Scott DO
Chief Complaint
-
abnormal outpatient labs
History of Present Illness
Patient is a 63-year-old male with past medical history significant for chronic HFpEF, paroxysmal SVT, atrial flutter, peripheral arterial disease, essential hypertension, hyperlipidemia, diabetes mellitus type II, CKD Stage IIIA, anemia of chronic
disease, alcoholic cirrhosis, hypothyroidism, peripheral neuropathy, BPH and chronic pain syndrome who presented to [facility] ED for evaluation s/p abnormal out patient labs. Patient states he had routine lab work done yesterday, primary
care called him today and requested he come to hospital for evaluation and treatment. Patient denies any recent illness, dizziness, fever, chills, cough, shortness of breath, chest pain, nausea, vomiting, constipation, diarrhea, urinary symptoms, no
new medications, no alcohol in >12 years.
Medical History
Past Medical History
Past Medical History: Reports Other
Additional Past Medical History:
Chronic HFpEF
Paroxysmal SVT
Atrial Flutter
Peripheral Arterial Disease
Essential Hypertension
Hyperlipidemia
Diabetes Mellitus, Type II
CKD Stage IIIA
Anemia of Chronic Disease
Alcoholic Cirrhosis
Hypothyroidism
Peripheral Neuropathy
BPH
Chronic Pain Syndrome
Past Surgical History: Reports Other
Additional Past Surgical History:
Left Above Knee Amputation
Social History
Tobacco: Non-smoker
Alcohol: Former (quit >12 years ago)
Drug: None
Family History
Family History: Not pertinent
Allergies / Home Medications
Allergies reflects when Allergies were last updated in [facility].
Home Medications with original date entered in [facility]
Allergy/Medication List:
Allergies
Allergy/AdvReac Type Severity Reaction Status Date / Time
No Known Allergies Allergy Verified 10/09/24 13:29
Home Medications
aspirin 81 mg tablet,delayed release 81 mg PO DAILY Blood clot prevention/tx 09/25/19
atorvastatin 40 mg tablet 40 mg PO HS High cholesterol 09/25/19
calcitriol 0.25 mcg capsule 0.25 mcg PO DAILY Kidney Disease 09/25/19
insulin degludec 200 unit/mL (3 mL) subcutaneous pen (Tresiba FlexTouch U-200 insulin) 60 unit SC DAILY Diabetes 09/20/22
magnesium oxide 500 mg PO DAILY Supplement 05/05/23
izdwcmvo-yc-rfziv 300 mcg-K 60 mcg-lycop 600 mcg-lutein 300 mcg tablet (Centrum Silver Men) 1 tab PO DAILY Supplement 07/22/23
rifaximin 550 mg tablet (Xifaxan) 550 mg PO BID Liver Issues 08/18/23
cyanocobalamin (vitamin B-12) 1,000 mcg tablet 1,000 mcg PO QPM Supplement 09/02/23
gabapentin 300 mg capsule 300 mg PO BID Neurological Condition 09/02/23
levothyroxine 137 mcg tablet 137 mcg PO DAILY@0700 Thyroid 09/02/23
potassium chloride 20 mEq tablet,extended release 40 meq PO DAILY Electrolyte Repletion 09/02/23
empagliflozin 10 mg tablet (Jardiance) 10 mg PO DAILY CHF 1 month #30 tabs 02/26/24
tamsulosin 0.4 mg capsule 0.8 mg (2 x 0.4 mg) PO HS prostate #30 caps 03/03/24
hydromorphone 8 mg tablet 8 mg PO TIDPRN PRN severe pain 08/06/24
insulin aspart U-100 100 unit/mL (3 mL) subcutaneous pen (Novolog FlexPen U-100 Insulin aspart) 0 sliding scale dose SC AC Diabetes 08/06/24
metolazone 5 mg tablet 5 mg PO MOFR Fluid Retention/Swelling 08/06/24
diltiazem HCl 180 mg capsule,extended release 24 hr 180 mg PO DAILY #30 caps 08/11/24
bumetanide 1 mg tablet 2 mg PO DAILY 10/09/24
metoprolol succinate 50 mg tablet,extended release 24 hr 75 mg PO BID 10/09/24
polyethylene glycol 3350 17 gram oral powder packet 17 g PO DAILYPRN PRN constipation 10/09/24
tirzepatide 5 mg/0.5 mL subcutaneous pen injector (Mounjaro) 5 mg SC VEGA 10/09/24
Review of Systems
-
History Source: Patient
Constitutional: Reports No Symptoms
EENT: Reports No Symptoms
Respiratory: Reports No Symptoms
Cardiac: Reports No Symptoms
Abdomen/GI: Reports No Symptoms
: Reports No Symptoms
Musculoskeletal: Reports No Symptoms
Skin: Reports No Symptoms
Neurological: Reports No Symptoms
Endocrine: Reports No Symptoms
Hematologic/Lymphatic: Reports No Symptoms
Psych: Reports No Symptoms
Physical Exam
Vital Signs
Vital Signs
Temp Pulse Resp BP Pulse Ox
97.6 F 60 21 140/67 96
10/09/24 15:48 10/09/24 16:00 10/09/24 15:48 10/09/24 15:48 10/09/24 15:48
Physical Exam
General: Well Developed, Well Nourished, No Apparent Distress, Comfortable and Conversant
HEENT: NormoCephalic, Moist mucous membranes, Atraumatic, Nose Appears Normal and Ears Appear Normal
Respiratory: Clear and Non Labored Respirations
Cardiac: S1/S2 and Regular Rhythm; No Murmur, Rub or Gallop
Breast: Deferred by me
GI: Soft, Non Tender, Normal Bowel Sounds and Distended; No Organomegaly
Rectal: Deferred by Provider
Genito-urinary: Deferred by me
Musculoskeletal: No Clubbing, No Cyanosis, No Edema and Other (Left AKA)
Skin: Jaundice and IV/Catheter Site
Neuro: Awake, Alert, AO x 3 and Nonfocal/grossly intact
Psych: Calm and Intact Judgment/Insight
Laboratory Results
-
10/09/24 13:38
10/09/24 13:38
Laboratory Results
PT 16.6 Sec (11.4-14.6) H 10/09/24 16:12
INR 1.32 10/09/24 16:12
APTT 32.0 Sec (23.4-35.0) 10/09/24 16:12
Total Bilirubin 5.2 mg/dl (0.2-1.3) H 10/09/24 13:38
AST 208 U/L (17-59) H 10/09/24 13:38
ALT 186 U/L (0-50) H 10/09/24 13:38
Alkaline Phosphatase 924 U/L (38-126) H 10/09/24 13:38
Lipase 205 U/L (23-300) 10/09/24 13:38
Data Reviewed
-
Medical Tests (Nuc Med, Echo, EKG etc): Report Reviewed by me (EKG: Atrial-paced rhythm with prolonged AV conduction)
Lab Data: Labs Reviewed by me (K+ 2.7, BUN 73, Creat 2.0, tot valentino 5.2, AST 208, ALT 186, Alk Phos 924)
Impression/Plan
-
IMPRESSION/PLAN:
#decompensated cirrhosis
#transaminitis
#Hx Alcoholic Cirrhosis
tot valentino 5.2, AST 208, ALT 186, Alk Phos 924
CT Abd: pending
US Abd: pending
- Admit to
- Consult GI
- NPO
- continue Xifaxan
#ascites
- consult IR for paracentesis
- hold diuretics in setting of WALDO
#acute kidney injury on CKD Stage IIIA
BUN 73, Creat 2.0 (baseline 1.5-1.6)
- hold diuretics
#hypokalemia likely 2/2 potassium wasting diuretics
K+ 2.7
- replete tonight
- repeat BMP
- continue KCl and magnesium
#Chronic HFpEF
ECHO (08/07/2024): Normal biventricular size and systolic function without regional wall motion abnormality.
No significant valvular disease.
Right heart pressures could not be determined.
No pericardial effusion.
No significant change since the prior study of 02/21/2024.
#Paroxysmal SVT
#Atrial Flutter
EKG: Atrial-paced rhythm with prolonged AV conduction
pt report tachycardia yesterday but was asymptomatic
- continue metoprolol and diltiazem
#lymphedema
- add ALLYSON wrap
- may benefit from lymphemia therapy
#Essential Hypertension
#Hyperlipidemia
- continue aspirin and atorvastatin
#Diabetes Mellitus, Type II
- AccuCheck AC & HS
- half dose Lantus while NPO
- SSI
#Anemia of Chronic Disease
hgb 9.5, hct 28.3
- appears at baseline
- monitor H/H
#Hypothyroidism
- continue levothyroxine
#Peripheral Neuropathy
- continue gabapentin
#BPH
- continue tamsulosin
#Chronic Pain Syndrome
- continue hydromorphone PRN
#Peripheral Arterial Disease
Code status: full code
DVT prophylaxis: heparin Sq
--- NOTE | 2024-10-09 18:01 | W.PN.UPDATE ---
Update Note
Progress Note Update
I saw and examined the patient.
The LEAD NETWORK ARCHITECT or PA's note was reviewed and I agree with the note.
Comment:
63-year-old male with past medical Struve hypertension, hyperlipidemia, HFpEF, paroxysmal SVT, atrial flutter, PAD s/p left AKA, DM, CKD now presents to the hospital after found to have abnormal blood work.� Routine labs were primary care doctor and
was indicated that abnormal labs, unclear what they were.� Patient does not knowledge his face looked a bit different, otherwise in usual state of health.� No shortness of breath, coughing, nausea, vomiting, diarrhea, chest pain.� Afebrile, blood
pressure 140/67, respiratory rate 21, pulse 60, 96% on room air.� Potassium 2.7 which was noted to be low on previous admission.� Creatinine 2.0 (1.6 in July), notable transaminitis with total bilirubin 5.2, AST 208, ALT 186, Alp Phos 924.�
Imaging pending. �Physical exam with evidence of icteric sclera, abdomen distended - nontender
#Transaminitis
#History of alcohol cirrhosis
#Suspected decompensated cirrhosis
� Add on direct bili
� Follow-up CT imaging
� Follow-up complete abdominal ultrasound
� GI consult
� Remain n.p.o.
�Continue Xifaxan
#Ascites
� IR for paracentesis
� Hold diuresis in setting of WALDO for now; not on Aldactone � may be a good option due to persistent hypokalemia
� In no acute respiratory distress
-See plan above
# WALDO on CKD stage IIIa
� Baseline 1.5-1.6
� Hold diuretics
� May need to provide gentle hydration depending on imaging
#Hypokalemia, in the setting of potassium wasting diuretic
-Continue standing KCl dose
-replete today
� Follow BMP this evening
�Continue magnesium
#Diabetes type 2
� Reduce to half dose Lantus as n.p.o.
� Sliding scale
#Presumed Chronic HFpEF
� Hold diuretics including Jardiance for now until further imaging was found and potassium is repleted
� Follow-up proBNP
PSVT
- continue metoprolol
-He reports he was asymptomatic with elevated heart rate yesterday
Lymphedema, chronic, he would benefit from lymphedema therapy
-will add ALLYSON wrap today
#Hypothyroidism
� Continue Synthroid
#Hyperlipidemia
� Continue statin
� Continue aspirin
#Anemia chronic disease
� Monitor
#Chronic pain syndrome
-Will continue with home medication regimen for analgesia
#S/p PPM
-Patient unsure medication sounds like SSS/tachybradycardia syndrome
-Scar is well-healed, no signs of dysfunction with
#Morbid obesity
#DVT ppx
-HSQ
[2024-10-09 18:08] LABS: Urine Albumin Negative (Neg - Trace); Urine Bilirubin Negative (Negative); Urine Character Clear (Clear); Urine Color Yellow; Urine Glucose Negative (Negative); Urine Ketone Negative (Negative); Urine Leukocyte Negative (Negative); Urine Nitrite Negative (Negative); Urine Occult Blood Negative (Negative); Urine Urobilinogen Negative (Neg - 1+)
[2024-10-09 18:40] LABS: Direct Bilirubin 3.8 mg/dl (0.0-0.4)
[2024-10-09] MEDS: XIFAXAN 550 MG PO (21:00)
[2024-10-09] MEDS: NEURONTIN 300 MG PO (21:00)
[2024-10-09 21:23] LABS: Glucose - Point of Care 114 mg/dl (70-99)
[2024-10-09] MEDS: DILAUDID 8 MG PO (21:45)
[2024-10-09] MEDS: FLOMAX 0.8 MG PO (21:46)
[2024-10-09] MEDS: LIPITOR 40 MG PO (21:46)
[2024-10-09] MEDS: TOPROL XL 75 MG PO (21:59)
[2024-10-09] MEDS: HEPARIN 5000 UNITS SC (23:06)
--- NOTE | 2024-10-09 23:09 | PTCARENOTE ---
Received pt from ED via stretcher with belongings/ wheelchair; Telemetry order> A-Paced on the monitor, afebrile, HR 60s, RR 20, BP 135/60,
pox 100% on room air. C/o chronic LE pain -Hydromorphone 8mg administered. KRider infusing through LAC IV. Pt AAOx3.
Skin> LAKA stump w/ x2 pinhole open areas draining small serous fluid- cleansed with NSS and foam applied. RLE -chronic lymphedema- pt states that he wears compression sock during the day. Leg elevated on pillow, foam applied to heel for protection.
Buttocks/ Sacrum intact.
Pt states that he stand-pivots self and utilizes a motorized scooter and wheelchair at the [facility], lives on first floor.
PMH and medications reviewed by this RN and patient/ medical records. Plan of care discussed. Pt oriented to room. Call crowley within reach.
[2024-10-10 03:05] VITALS: BP 119/51
[2024-10-10] MEDS: SYNTHROID 137 MCG PO (04:56)
[2024-10-10 06:00] VITALS: BMI 40.8
[2024-10-10 07:07] LABS: ALT (SGPT) 181 U/L (0-50); AST (SGOT) 174 U/L (17-59); Albumin 3.2 g/dl (3.5-5.0); Alkaline Phosphatase 1078 U/L (38-126); Blood Urea Nitrogen 74 mg/dl (9-20); Calcium 8.2 mg/dl (8.4-10.2); Carbon Dioxide 26 mmol/L (22-30); Chloride 102 mmol/L (98-107); Estimated Creatinine Clearance 56 ml/min; Glucose 92 mg/dl (70-99); Potassium 2.7 mmol/L (3.5-5.1); Sodium 140 mmol/L (135-145); Total Bilirubin 4.6 mg/dl (0.2-1.3); Total Protein 6.3 g/dl (6.3-8.2); eGFR 44.74
--- NOTE | 2024-10-10 07:14 | CON.GI ---
Addendum entered and electronically signed by Stephania Guerrero MD 10/10/24 16:38:
d/w RN MRI needs to clear that can be done with his pacer
I advanced diet to 2g na for now
Addendum entered and electronically signed by Stephania Guerrero MD 10/10/24 16:31:
outpatient follow up for panc cyst as noted
Addendum entered and electronically signed by Stephania Guerrero MD 10/10/24 16:24:
The patient was seen and examined by me independently in collaboration with the nurse practitioner.
Past medical history/social history/medications/allergies/family history reviewed.
Lab data and imaging data reviewed.
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 Reid told me his last follow-up was 1 year ago but obviously
has questionable compliance. Prior history of ascites, encephalopathy, A-fib/a flutter, pacemaker, CKD presenting with abnormal labs sent in from his outpatient doctor found to have alkaline phosphatase 1078, total bilirubin initially 5.2 and
repeat 4.6. AST 174, ALT 181.
US/CT unremarkable this admission. Had liver work up as below in 2022 that was negative.
Plan for MRI/MRCP - alk phos/bili more elevated than prior. Differential obstructive, infiltrative. Denies pain, fevers/chills. I also ordered AMA although low suspicion as well as other autoimmune markers and will repeat acute hep serologies as
well.
Addendum entered and electronically signed by MAY Mendoza 10/10/24 12:31:
Pt also note with pancreatic cystic lesion up to 2 cm possible pseudocyst vs side brandk IPMN -- consider OP MRI.
Original Note:
Consultation
-
Date/Time Consultation Requested: 10/09/24 2330
Date/Time Consultation Performed: 10/10/24 1045
Requesting Provider: MAY Judd
Performing Provider: MAY Bryant, Caitlin Guerrero MD
Reason for Consultation: eval for cirrhosis
Medical History
Chief Complaint / HPI
Chief Complaint: abnormal labs
History of Present Illness:
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
amputation, stage III CKD, PAD, anemia of chronic disease, BPH, chronic pain presents with abnormal OP labs. On admission noted with WBC 4.1, hbg 9.5, platelets 112, INR 1.32, Na 136, creat 2, glucose 178, bili 5.2, d bili 3.8, AST 208, ALT 186,
alk phos 924, lipase 205. Prior liver 2022 work up with hepatitis, JOHNNY, AMA neg with stable ferritin levels. In review of chart patient with admission in July with CHF, SVT, constipation and urinary retention. Per prior record follows at
[facility] for his chronic liver disease but states he saw Dr. Reid about 3 years ago and admits to poor compliance with follow up.
At thist time he denies odynophagia,dysphagia, GERD, nausea, vomiting, abdominal pain, diarrhea, constipation or rectal bleeding. He believes he has prior colonoscopy about 3 years ago at [facility] but did not recall EGD in past.
Past Medical History
Past Medical History: Arrhythmias (PSVT, aflutter), CHF, HTN, Hypercholesterolemia, Hypothyroidism, NIDDM (with neuropathy), Renal Failure (CKD stage III ) and Other (PAF, anemia of chronic disease, ETOH cirrhosis, BPH, chronic pain, lymphedema)
Past Surgical History: Cardiac (pacer) and Orthopedic (left above knee amputation)
Social History
Tobacco: Non-Smoker
Alcohol: Former (quit >12 years ago)
Drug: None
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
Living: Other (lives at [facility] with priests that assist with caregiving )
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
Family History
Family History: Other (? mother with liver disease but of bone cancer)
Allergies / Home Medications
Allergy/AdvReac Type Severity Reaction Status Date / Time
No Known Allergies Allergy Verified 10/09/24 13:29
�Medication �Instructions �Recorded
aspirin 81 mg tablet,delayed 81 mg PO DAILY Blood clot 09/25/19
release prevention/tx
atorvastatin 40 mg tablet 40 mg PO HS High cholesterol 09/25/19
calcitriol 0.25 mcg capsule 0.25 mcg PO DAILY Kidney Disease 09/25/19
insulin degludec 200 unit/mL (3 60 unit SC DAILY Diabetes 09/20/22
mL) subcutaneous pen (Tresiba
FlexTouch U-200 insulin)
magnesium oxide 500 mg PO DAILY Supplement 05/05/23
gyciygiy-rw-nbxws 300 mcg-K 60 1 tab PO DAILY Supplement 07/22/23
mcg-lycop 600 mcg-lutein 300 mcg
tablet (Centrum Silver Men)
rifaximin 550 mg tablet (Xifaxan) 550 mg PO BID Liver Issues 08/18/23
cyanocobalamin (vitamin B-12) 1,000 mcg PO QPM Supplement 09/02/23
1,000 mcg tablet
gabapentin 300 mg capsule 300 mg PO BID Neurological 09/02/23
Condition
levothyroxine 137 mcg tablet 137 mcg PO DAILY@0700 Thyroid 09/02/23
potassium chloride 20 mEq 40 meq PO DAILY Electrolyte 09/02/23
tablet,extended release Repletion
empagliflozin 10 mg tablet 10 mg PO DAILY CHF 1 month #30 tabs 02/26/24
(Jardiance)
tamsulosin 0.4 mg capsule 0.8 mg (2 x 0.4 mg) PO HS prostate 03/03/24
#30 caps
hydromorphone 8 mg tablet 8 mg PO TIDPRN PRN severe pain 08/06/24
insulin aspart U-100 100 unit/mL 0 sliding scale dose SC AC Diabetes 08/06/24
(3 mL) subcutaneous pen (Novolog
FlexPen U-100 Insulin aspart)
metolazone 5 mg tablet 5 mg PO MOFR Fluid 08/06/24
Retention/Swelling
diltiazem HCl 180 mg 180 mg PO DAILY #30 caps 08/11/24
capsule,extended release 24 hr
bumetanide 1 mg tablet 2 mg PO DAILY 10/09/24
metoprolol succinate 50 mg 75 mg PO BID 10/09/24
tablet,extended release 24 hr
polyethylene glycol 3350 17 gram 17 g PO DAILYPRN PRN constipation 10/09/24
oral powder packet
tirzepatide 5 mg/0.5 mL 5 mg SC VEGA 10/09/24
subcutaneous pen injector
(Navid)
Review of Systems
-
History Source: Patient
Constitutional: Reports Weight Gain (with LE edema )
EENT: Reports No Symptoms
Respiratory: Reports No Symptoms
Cardiac: Reports No Symptoms
Musculoskeletal: Reports Edema and Other (hx Left BKA)
Neurological: Reports Weakness
Endocrine: Reports No Symptoms
Hematologic/Lymphatic: Reports No Symptoms
Vital Signs
Temp Pulse Resp BP Pulse Ox
97.8 F 65 20 119/51 97
10/10/24 03:05 10/10/24 03:05 10/10/24 03:05 10/10/24 03:05 10/10/24 03:05
Physical Exam
Exam
General: Other (appears older than stated age )
HEENT: Other (jaundice, with icteric sclera )
Respiratory: Clear
Cardiac: Regular Rhythm and Peripheral Edema (right leg with lymphedema )
GI: Soft and Distended (edema up to mid abdomen )
Musculoskeletal: No Clubbing and No Cyanosis
Skin: Warm and Dry
Neuro: Awake, Alert and AO x 3
Psych: Calm
Results
WBC 4.1 10^3/uL (4.8-10.8) L 10/09/24 13:38
Hgb 9.5 g/dL (13.0-18.0) L 10/09/24 13:38
Hct 28.3 % (39.0-52.0) L 10/09/24 13:38
MCV 89.6 fL (80.0-94.0) 10/09/24 13:38
Plt Count 112 10^3/uL (130-400) L 10/09/24 13:38
Absolute Neuts (auto) 3.4 10^3/uL (1.4-6.5) 10/09/24 13:38
PT 16.6 Sec (11.4-14.6) H 10/09/24 16:12
INR 1.32 10/09/24 16:12
APTT 32.0 Sec (23.4-35.0) 10/09/24 16:12
Sodium 140 mmol/L (135-145) 10/10/24 05:46
Potassium 2.7 mmol/L (3.5-5.1) L* 10/10/24 05:46
Chloride 102 mmol/L (98-107) 10/10/24 05:46
Carbon Dioxide 26 mmol/L (22-30) 10/10/24 05:46
BUN 74 mg/dl (9-20) H 10/10/24 05:46
Creatinine 1.7 mg/dL (0.7-1.3) H 10/10/24 05:46
Calcium 8.2 mg/dl (8.4-10.2) L 10/10/24 05:46
Total Bilirubin 4.6 mg/dl (0.2-1.3) H 10/10/24 05:46
AST 174 U/L (17-59) H 10/10/24 05:46
ALT 181 U/L (0-50) H 10/10/24 05:46
Alkaline Phosphatase 1078 U/L (38-126) H 10/10/24 05:46
Lipase 205 U/L (23-300) 10/09/24 13:38
Diagnostic Image Results:
10/09- US abdomen
1. Cholelithiasis without convincing sonographic evidence for acute cholecystitis.
2. Cirrhosis and portal hypertension changes.
10/09/24 CT Abd/pel Without Iv Or Oral
1. Small volume abdominopelvic ascites, similar to prior. No other significant acute abnormality identified in the abdomen or pelvis, within the limits of unenhanced CT, as described above.
2. Hepatic cirrhosis and portal hypertension.
3. Cholelithiasis.
4. Pancreatic cystic lesions measuring up to 2.0 cm, possibly pseudocysts or side branch intraductal papillary mucinous neoplasms. Recommend outpatient workup with dedicated MRI abdomen without and with gadolinium contrast.
07/2024 echo
Normal biventricular size and systolic function without regional wall motion
abnormality.
No significant valvular disease.
Right heart pressures could not be determined.
No pericardial effusion.
No significant change since the prior study of 02/21/2024.
Prior GI Procedures:
EGD:? [facility] in past
Colonoscopy: ? [facility] in past
Assessment / Plan
-
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
anemia of chronic disease, BPH, chronic pain presents with abnormal OP labs. On admission noted with WBC 4.1, hbg 9.5, platelets 112, INR 1.32, Na 136, creat 2, glucose 178, bili 5.2, d bili 3.8, AST 208, ALT 186, alk phos 924, lipase 205. Prior
liver 2022 work up with hepatitis, JOHNNY, AMA neg with stable ferritin levels. In review of chart patient with admission in July with CHF, SVT, constipation and urinary retention. Per prior record follows with Dr. Reid in past with some
compliance with follow up.
-Hx ETOH cirrhosis with decompensation
-ascites
-increased LFT's
-hx hepatic encephalopathy on chronic Xifaxan BID
-ascites
-WALDO on chronic on admission
-hypokalemia
-chronic anemia
-constipation on July admission
-hypoalbuminemia
-thrombocytopenia
-LE edema with lymphedema
-admission in July with CHF
other medical problems:
-afib/flutter
-PAD with BKA
-NIDDM with neuropathy on chronic Moujaro/insulin
-CHF
-pacer
-HTN
-hyperlipidemia
-hypothyroidism
-BKA
-SVT
-obesity
-chronic pain
-anemia
PLAN:
current admit with Acute on chronic CKD and hypokalemia but concern for underlying cirrhosis - ETOH (last 12 years ago) vs mash with hx DM vs other
pt also with hx CHF with admission in July with adjustment of diuretics
Pt was on Metolazone/Bumex prior to admission now no hold-- currently managed by cardiology
Not enough ascites to tap
current MELD 24 based on admission labs driven by worsening renal function and rise in bilirubin
discussed concern for underlying liver disease and need for hepatology follow up
US completed add AFP
cont to trend MELD labs
will need OP EGD
complete OP serology work up
ETOH avoidance and avoid hepatotoxic medications
I discussed with patient concern for lack of follow up in past-- He needs to decide how aggressive he wants to be with liver disease-- proceed with OP hepatology evaluation vs local GI care but need regular follow up
will review with Dr. Guerrero for further recs
-
-
Thank you for consultation and allowing me to participate in the patient's care. Please call the recreation therapist GI physician during the after hours with any questions or concerns.
[2024-10-10 07:37] VITALS: BP 120/57
[2024-10-10 07:37] LABS: Glucose - Point of Care 102 mg/dl (70-99)
[2024-10-10] MEDS: NOVOLOG FLEXPEN-LOW RESISTANCE SC ×3 (08:36→17:21)
[2024-10-10 09:01] LABS: Hematocrit 32.1 % (39.0-52.0); Hemoglobin 11.1 g/dL (13.0-18.0); Mean Corp Hgb Conc. 34.6 g/dL (33.0-37.0); Mean Corpuscular Hgb 30.7 pg (27.0-31.0); Mean Corpuscular Volume 88.7 fL (80.0-94.0); Mean Platelet Volume 10.6 fL (7.4-10.4); Platelet Count 121 10^3/uL (130-400); Red Blood Cell Count 3.62 10^6/uL (4.70-6.10); White Blood Cell Count 4.5 10^3/uL (4.8-10.8)
[2024-10-10] MEDS: MAGNESIUM OXIDE 500 MG PO (09:14)
[2024-10-10] MEDS: KCL 40 MEQ PO (09:14)
[2024-10-10] MEDS: THERAGRAN 1 TABLET PO (09:14)
[2024-10-10] MEDS: ASPIR LOW (ENTERIC COATED) 81 MG PO (09:14)
[2024-10-10] MEDS: TOPROL XL 75 MG PO ×2 (09:14→20:11)
[2024-10-10] MEDS: HEPARIN 5000 UNITS SC ×2 (09:15→16:33)
[2024-10-10] MEDS: ROCALTROL 0.25 MCG PO (09:15)
[2024-10-10] MEDS: CARDIZEM CD 180 MG PO (09:15)
[2024-10-10] MEDS: NEURONTIN 300 MG PO ×2 (09:15→20:11)
[2024-10-10] MEDS: XIFAXAN 550 MG PO ×2 (09:15→20:11)
[2024-10-10] MEDS: LANTUS 0.3 UNITS SC (09:16)
[2024-10-10 10:25] LABS: Glycohemoglobin (HgbA1c) 7.7 % (4.0-5.6)
[2024-10-10] MEDS: KLOR-CON 40 MEQ PO ×4 (10:26→20:10)
--- NOTE | 2024-10-10 12:16 | CM ---
Reviewed the chart notes and spoke with the patient at the bedside. The patient resides in a two story home with a ramp to enter with other roommates on the property of [facility]. The patient resides on the first floor and there is an
elevator to the second floor. The patient has an wheelchair, electric scooter, shower chair, and a bsc. The patient has had [facility] in the past and been to [facility]. The patient confirmed his pharmacy of choice is the [facility]
continues to be available to patient/family and is monitoring medical plan for needs at discharge.
Plan: Discharge plans will depend on the patient's progress.
[2024-10-10 12:25] LABS: Glucose - Point of Care 93 mg/dl (70-99)
--- NOTE | 2024-10-10 12:30 | W.PN.HOSP.TC ---
Today's Communication/Plan
-
f/u afp
mrcp
gi recs
k repletion
Assessment / Plan
Assessment / Plan
Physical Exam
General: Well Developed, Well Nourished, No Apparent Distress, Comfortable and Conversant
HEENT: NormoCephalic, Moist mucous membranes, Atraumatic, Nose Appears Normal and Ears Appear Normal
Respiratory: Clear and Non Labored Respirations
Cardiac: S1/S2 and Regular Rhythm; No Murmur, Rub or Gallop
Breast: Deferred by me
GI: Soft, Non Tender, Normal Bowel Sounds and Distended; No Organomegaly
Rectal: Deferred by Provider
Genito-urinary: Deferred by me
Musculoskeletal: No Clubbing, No Cyanosis, RLE edema and Other (Left AKA)
Skin: Jaundice and IV/Catheter Site
Neuro: Awake, Alert, AO x 3 and Nonfocal/grossly intact
Psych: Calm and Intact Judgment/Insight
#Transaminitis
#History of alcohol cirrhosis
#Suspected decompensated cirrhosis
#Suspected Portal Hypertension
-F/u MRCP
� GI consult
� Remain n.p.o.
�Continue Xifaxan
#Ascites
-not enough for tapping
-nontender
-ctm
� Hold diuresis in setting of WALDO for now; not on Aldactone � may be a good option due to persistent hypokalemia
� In no acute respiratory distress
-See plan above
# WALDO on CKD stage IIIa
� Baseline 1.5-1.6
� Hold diuretics
� improving
#Hypokalemia, in the setting of potassium wasting diuretic
-Continue standing KCl dose
-replete today
� Follow BMP this afternoon
�magnesium wnl
#Diabetes type 2
� Reduce to half dose Lantus as n.p.o.
� Sliding scale
#Presumed Chronic HFpEF
� Hold diuretics including Jardiance for now until further imaging was found and potassium is repleted
� Follow-up proBNP
#Pancreatic cystic lesions
-measuring up to 2.0 cm: possibly pseudocysts or side branch intraductal papillary mucinous neoplasms.
-F/u MRI abd
PSVT
- continue metoprolol, CCB
-He reports he was asymptomatic with elevated heart rate yesterday
Lymphedema, chronic, he would benefit from lymphedema therapy
-ALLYSON wrap today
#Hypothyroidism
� Continue Synthroid
#Hyperlipidemia
�hold statin
� Continue aspirin
#Anemia chronic disease
� Monitor
#Chronic pain syndrome
-Will continue with home medication regimen for analgesia
#S/p PPM
-Patient unsure medication sounds like SSS/tachybradycardia syndrome
-Scar is well-healed, no signs of dysfunction with
#Morbid obesity
#DVT ppx
-HSQ
Total time spent on today's encounter was 50 minutes which included time spent in counseling the patient/family regarding diagnosis and treatment plan as listed above, goals of care, and symptom management. Case was discussed with nursing staff,
specialists, and care coordinators/case management. All labs and imaging personally reviewed by me. Remainder the time spent in detailed review of previous records, lab data, imaging, and other medical provider documentation.
Anticipated Discharge: > 48 hours
Subjective/Interval History
-
Date of Service: October 10, 2024
not enough fluid to tap
Objective Data
-
Labs:
Laboratory Results
10/10/24 10/10/24 10/10/24
05:46 08:41 12:18
WBC 4.5 L
Hgb 11.1 L
Hct 32.1 L
Plt Count 121 L
Sodium 140 Pending
Potassium 2.7 L* Pending
Chloride 102 Pending
Carbon Dioxide 26 Pending
BUN 74 H Pending
Creatinine 1.7 H Pending
Glucose 92 Pending
Calcium 8.2 L Pending
Total Bilirubin 4.6 H
AST 174 H
ALT 181 H
Alkaline Phosphatase 1078 H
Vital Signs:
Vital Signs
Temp Pulse Resp BP Pulse Ox
97.5 F 71 16 120/57 96
10/10/24 07:37 10/10/24 09:15 10/10/24 07:37 10/10/24 09:15 10/10/24 07:37
I&O
10/09/24 10/10/24 10/11/24
06:59 06:59 06:59
Intake Total 240 / 240
Output Total 2475 / 2475
Balance -2235 / -2235
Review of Systems
-
History Source: Patient
All other systems: Not reviewed unless documented
Data Reviewed
-
Diagnostic Radiology: Report Reviewed by me
CT Scan: Report Reviewed by me
Labs: Labs Reviewed by me
[2024-10-10 12:53] LABS: Blood Urea Nitrogen 71 mg/dl (9-20); Calcium 8.3 mg/dl (8.4-10.2); Carbon Dioxide 29 mmol/L (22-30); Chloride 102 mmol/L (98-107); Estimated Creatinine Clearance 60 ml/min; Glucose 95 mg/dl (70-99); Potassium 3.2 mmol/L (3.5-5.1); Sodium 141 mmol/L (135-145); eGFR 48.11
[2024-10-10 15:25] VITALS: BP 117/57
[2024-10-10 16:33] LABS: Blood Urea Nitrogen 70 mg/dl (9-20); Calcium 8.5 mg/dl (8.4-10.2); Carbon Dioxide 30 mmol/L (22-30); Chloride 102 mmol/L (98-107); Estimated Creatinine Clearance 60 ml/min; Glucose 95 mg/dl (70-99); Potassium 3.6 mmol/L (3.5-5.1); Sodium 142 mmol/L (135-145); eGFR 48.11
[2024-10-10] MEDS: VITAMIN B-12 1000 MCG PO (16:39)
[2024-10-10] MEDS: DILAUDID 8 MG PO (16:46)
[2024-10-10 16:53] LABS: Glucose - Point of Care 96 mg/dl (70-99)
[2024-10-10 16:57] VITALS: BMI 40.8
[2024-10-10 19:10] VITALS: BP 127/58
[2024-10-10 21:37] LABS: Glucose - Point of Care 262 mg/dl (70-99)
[2024-10-10] MEDS: FLOMAX 0.8 MG PO (22:47)
[2024-10-10 23:08] LABS: Blood Urea Nitrogen 69 mg/dl (9-20); Calcium 8.4 mg/dl (8.4-10.2); Carbon Dioxide 31 mmol/L (22-30); Chloride 102 mmol/L (98-107); Estimated Creatinine Clearance 64 ml/min; Glucose 267 mg/dl (70-99); Potassium 4.6 mmol/L (3.5-5.1); Sodium 141 mmol/L (135-145); eGFR 51.99
[2024-10-10 23:30] VITALS: BP 126/65
[2024-10-11] MEDS: HEPARIN 5000 UNITS SC ×3 (00:37→16:46)
[2024-10-11 03:09] VITALS: BP 116/56
[2024-10-11] MEDS: SYNTHROID 137 MCG PO (05:21)
[2024-10-11 06:00] VITALS: BMI 40.4
[2024-10-11 06:17] LABS: Hematocrit 30.8 % (39.0-52.0); Hemoglobin 10.1 g/dL (13.0-18.0); Mean Corp Hgb Conc. 32.8 g/dL (33.0-37.0); Mean Corpuscular Hgb 30.4 pg (27.0-31.0); Mean Corpuscular Volume 92.8 fL (80.0-94.0); Mean Platelet Volume 10.4 fL (7.4-10.4); Platelet Count 131 10^3/uL (130-400); Red Blood Cell Count 3.32 10^6/uL (4.70-6.10); Red Cell Dist. Width 14.1 % (11.5-14.5); White Blood Cell Count 3.7 10^3/uL (4.8-10.8)
[2024-10-11 06:31] LABS: INR 1.22; PT 15.9 Sec (11.4-14.6)
[2024-10-11 06:40] LABS: ALT (SGPT) 156 U/L (0-50); AST (SGOT) 125 U/L (17-59); Albumin 3.3 g/dl (3.5-5.0); Blood Urea Nitrogen 67 mg/dl (9-20); Calcium 8.4 mg/dl (8.4-10.2); Carbon Dioxide 27 mmol/L (22-30); Chloride 103 mmol/L (98-107); Direct Bilirubin 3.7 mg/dl (0.0-0.4); Estimated Creatinine Clearance 64 ml/min; Glucose 282 mg/dl (70-99); Potassium 3.7 mmol/L (3.5-5.1); Sodium 141 mmol/L (135-145); Total Bilirubin 4.7 mg/dl (0.2-1.3); Total Protein 6.5 g/dl (6.3-8.2); eGFR 51.99
[2024-10-11 06:50] LABS: Alkaline Phosphatase 1171 U/L (38-126)
[2024-10-11 06:52] LABS: IgA 702 mg/dl (70-400); IgG 1171 mg/dl (700-1600); IgM 76 mg/dl (40-230)
[2024-10-11 07:30] VITALS: BP 110/60
[2024-10-11 07:35] LABS: Glucose - Point of Care 250 mg/dl (70-99)
[2024-10-11] MEDS: NOVOLOG FLEXPEN-LOW RESISTANCE 3 UNITS SC (08:06)
[2024-10-11] MEDS: LANTUS 0.3 UNITS SC (08:06)
[2024-10-11] MEDS: CARDIZEM CD 180 MG PO (08:07)
[2024-10-11] MEDS: KCL 40 MEQ PO (08:08)
[2024-10-11] MEDS: ROCALTROL 0.25 MCG PO (08:08)
[2024-10-11] MEDS: TOPROL XL 75 MG PO ×2 (08:08→20:11)
[2024-10-11] MEDS: NEURONTIN 300 MG PO ×2 (08:08→20:07)
[2024-10-11] MEDS: ASPIR LOW (ENTERIC COATED) 81 MG PO (08:08)
[2024-10-11] MEDS: MAGNESIUM OXIDE 500 MG PO (08:08)
[2024-10-11] MEDS: THERAGRAN 1 TABLET PO (08:08)
[2024-10-11] MEDS: XIFAXAN 550 MG PO ×2 (08:08→20:07)
--- NOTE | 2024-10-11 09:33 | CM ---
Reviewed the chart notes. Patient's diet advanced to 2GM Sodium. CM continues to be available to patient/family and is monitoring medical plan for needs at discharge.
Plan: Discharge plans will depend on the patient's progress.
[2024-10-11 11:55] VITALS: BP 116/61
[2024-10-11 12:52] LABS: Glucose - Point of Care 331 mg/dl (70-99)
--- NOTE | 2024-10-11 12:52 | W.PN.HOSP.TC ---
Today's Communication/Plan
-
hold diuretics today
monitor K
MRCP, MRI abd w/ con
Assessment / Plan
Assessment / Plan
Physical Exam
General: Well Developed, Well Nourished, No Apparent Distress, Comfortable and Conversant
HEENT: NormoCephalic, Moist mucous membranes, Atraumatic, Nose Appears Normal and Ears Appear Normal
Respiratory: Clear and Non Labored Respirations
Cardiac: S1/S2 and Regular Rhythm; No Murmur, Rub or Gallop
Breast: Deferred by me
GI: Soft, Non Tender, Normal Bowel Sounds and Distended; No Organomegaly
Rectal: Deferred by Provider
Genito-urinary: Deferred by me
Musculoskeletal: No Clubbing, No Cyanosis, RLE edema and Other (Left AKA)
Skin: Jaundice and IV/Catheter Site
Neuro: Awake, Alert, AO x 3 and Nonfocal/grossly intact
Psych: Calm and Intact Judgment/Insight
#Transaminitis
#History of alcohol cirrhosis
#Suspected decompensated cirrhosis
#Suspected Portal Hypertension
-F/u MRCP, MRI abdomen contrast
� GI consult
� Remain n.p.o.
�Continue Xifaxan
#Ascites
-not enough for tapping
-nontender
-ctm
� Hold diuresis in setting of WALDO for now; not on Aldactone � may be a good option due to persistent hypokalemia
� In no acute respiratory distress
-See plan above
# WALDO on CKD stage IIIa
� Baseline 1.5-1.6
� Hold diuretics
� improving
#Hypokalemia, in the setting of potassium wasting diuretic
-Continue standing KCl dose
-replete as needed
� Follow BMP this afternoon
�magnesium wnl
#Diabetes type 2
� Reduce to half dose Lantus as n.p.o.
� Sliding scale
#Presumed Chronic HFpEF
� Hold diuretics including Jardiance for now
-would benefit rather from Aldactone, was started last admission but appears to have stopped
#Pancreatic cystic lesions
-measuring up to 2.0 cm: possibly pseudocysts or side branch intraductal papillary mucinous neoplasms.
-F/u MRI abd
PSVT
- continue metoprolol, CCB
-He reports he was asymptomatic with elevated heart rate yesterday
Lymphedema, chronic, he would benefit from lymphedema therapy
-ALLYSON wrap
#Hypothyroidism
� Continue Synthroid
#Hyperlipidemia
�hold statin
� Continue aspirin
#Anemia chronic disease
� Monitor
#Chronic pain syndrome
-Will continue with home medication regimen for analgesia
#S/p PPM
-Patient unsure medication sounds like SSS/tachybradycardia syndrome
-Scar is well-healed, no signs of dysfunction with
#Morbid obesity
#DVT ppx
-HSQ
Total time spent on today's encounter was 51 minutes which included time spent in counseling the patient/family regarding diagnosis and treatment plan as listed above, goals of care, and symptom management. Case was discussed with nursing staff,
specialists, and care coordinators/case management. All labs and imaging personally reviewed by me. Remainder the time spent in detailed review of previous records, lab data, imaging, and other medical provider documentation.
Anticipated Discharge: > 48 hours
Subjective/Interval History
-
Date of Service: October 11, 2024
No acute events, did not get much rest overnight
Objective Data
-
Labs:
Laboratory Results
10/11/24
05:44
WBC 3.7 L
Hgb 10.1 L
Hct 30.8 L
Plt Count 131
PT 15.9 H
INR 1.22
Sodium 141
Potassium 3.7
Chloride 103
Carbon Dioxide 27
BUN 67 H
Creatinine 1.5 H
Glucose 282 H
Calcium 8.4
Total Bilirubin 4.7 H
AST 125 H
ALT 156 H
Alkaline Phosphatase 1171 H
Vital Signs:
Vital Signs
Temp Pulse Resp BP Pulse Ox
97.7 F 62 16 110/60 97
10/11/24 07:30 10/11/24 08:08 10/11/24 07:30 10/11/24 08:08 10/11/24 07:30
I&O
10/10/24 10/11/24 10/12/24
06:59 06:59 06:59
Intake Total 240 / 240 720 / 720
Output Total 2475 / 2475 2600 / 2600
Balance -2235 / -2235 -0 / -1879
Review of Systems
-
History Source: Patient
All other systems: Not reviewed unless documented
Physical Exam
-
General: No Apparent Distress, Comfortable and Obese
HEENT: Normocephalic, Atraumatic, Moist Mucous Membranes and Anicteric
Respiratory: Rales (Trace, bibasilar) and Non Labored Respirations; Negative Wheezes, Rhonchi or Accessory Resp Muscle Use
Cardiac: Regular Rhythm and S1/S2; Negative Murmur, Rub or Gallop
GI: Soft, Nontender, Nondistended and Normal Bowel Sounds
Musculoskeletal: No Clubbing, No Cyanosis and Other (b/l LE swelling much improved; left AKA )
Skin: Warm and Dry; Negative Rash
Neuro: AO x 3, Nonfocal/Grossly Intact and Central Nerve's Intact
Psych: Calm
Data Reviewed
-
Diagnostic Radiology: Report Reviewed by me
CT Scan: Report Reviewed by me
Labs: Labs Reviewed by me
[2024-10-11] MEDS: NOVOLOG FLEXPEN-LOW RESISTANCE 4 UNITS SC (13:02)
[2024-10-11] MEDS: NOVOLOG FLEXPEN 5 UNITS SC (13:27)
[2024-10-11] MEDS: NSS (PRESERVATIVE FREE) 0.5 ML IV (15:01)
[2024-10-11] MEDS: ATIVAN 1 MG IV (15:01)
[2024-10-11 16:30] VITALS: BP 114/55
[2024-10-11] MEDS: VITAMIN B-12 1000 MCG PO (16:46)
[2024-10-11 16:51] LABS: Glucose - Point of Care 237 mg/dl (70-99)
[2024-10-11] MEDS: NOVOLOG FLEXPEN-LOW RESISTANCE 2 UNITS SC (16:51)
[2024-10-11 18:29] LABS: AFP Male/Tumor Marker < 0.968 ng/ml
[2024-10-11 18:55] LABS: Hepatitis B Surface Antigen Negative (Negative)
[2024-10-11 19:14] LABS: Hepatitis A Antibody, Total Negative (Negative); Hepatitis B Surface Antibody Negative; Hepatitis C Antibody Negative (Negative)
[2024-10-11 19:18] VITALS: BP 131/59
[2024-10-11] MEDS: COLACE 100 MG PO (20:08)
[2024-10-11] MEDS: FLOMAX 0.8 MG PO (20:08)
[2024-10-11] MEDS: MIRALAX 17 GRAMS PO (20:11)
[2024-10-11 22:05] LABS: Glucose - Point of Care 296 mg/dl (70-99)
[2024-10-11 23:31] VITALS: BP 133/65
[2024-10-12] MEDS: HEPARIN 5000 UNITS SC ×4 (00:49→23:22)
[2024-10-12] MEDS: DILAUDID 8 MG PO ×2 (01:03→21:10)
[2024-10-12 03:21] VITALS: BP 129/53
[2024-10-12 05:58] VITALS: BMI 40.2
[2024-10-12] MEDS: SYNTHROID 137 MCG PO (06:18)
[2024-10-12 07:42] VITALS: BP 116/56
[2024-10-12 07:50] LABS: Glucose - Point of Care 266 mg/dl (70-99)
[2024-10-12 07:59] LABS: Hematocrit 28.3 % (39.0-52.0); Hemoglobin 9.4 g/dL (13.0-18.0); Mean Corp Hgb Conc. 33.2 g/dL (33.0-37.0); Mean Corpuscular Hgb 30.6 pg (27.0-31.0); Mean Corpuscular Volume 92.2 fL (80.0-94.0); Mean Platelet Volume 10.6 fL (7.4-10.4); Platelet Count 129 10^3/uL (130-400); Red Blood Cell Count 3.07 10^6/uL (4.70-6.10); Red Cell Dist. Width 14.4 % (11.5-14.5); White Blood Cell Count 3.4 10^3/uL (4.8-10.8)
[2024-10-12] MEDS: XIFAXAN 550 MG PO ×2 (08:38→21:04)
[2024-10-12] MEDS: MAGNESIUM OXIDE 500 MG PO (08:38)
[2024-10-12] MEDS: ROCALTROL 0.25 MCG PO (08:38)
[2024-10-12] MEDS: NEURONTIN 300 MG PO ×2 (08:38→21:04)
[2024-10-12] MEDS: ASPIR LOW (ENTERIC COATED) 81 MG PO (08:38)
[2024-10-12] MEDS: COLACE 100 MG PO (08:38)
[2024-10-12] MEDS: TOPROL XL 75 MG PO ×2 (08:39→21:04)
[2024-10-12] MEDS: KCL 40 MEQ PO (08:40)
[2024-10-12] MEDS: THERAGRAN 1 TABLET PO (08:40)
[2024-10-12] MEDS: CARDIZEM CD 180 MG PO (08:41)
[2024-10-12 08:44] LABS: ALT (SGPT) 111 U/L (0-50); AST (SGOT) 73 U/L (17-59); Albumin 2.8 g/dl (3.5-5.0); Alkaline Phosphatase 1162 U/L (38-126); Blood Urea Nitrogen 57 mg/dl (9-20); Calcium 8.2 mg/dl (8.4-10.2); Carbon Dioxide 26 mmol/L (22-30); Chloride 104 mmol/L (98-107); Estimated Creatinine Clearance 73 ml/min; GGTP 417 U/L (15-73); Glucose 256 mg/dl (70-99); Potassium 3.8 mmol/L (3.5-5.1); Sodium 138 mmol/L (135-145); Total Protein 5.8 g/dl (6.3-8.2); eGFR > 60.00
[2024-10-12] MEDS: LANTUS 0.6 UNITS SC (08:52)
[2024-10-12] MEDS: NOVOLOG FLEXPEN-LOW RESISTANCE 3 UNITS SC (08:53)
[2024-10-12 11:02] VITALS: BP 115/54
[2024-10-12 12:12] LABS: Glucose - Point of Care 392 mg/dl (70-99)
--- NOTE | 2024-10-12 12:49 | W.PN.GI.CBS2 ---
Today's Communication / Plan
-
Please see assessment and plan for details.
Assessment / Plan
-
1. Elevated LFTs: Intermix pattern, though markedly elevated alkaline phosphatase with GGT, with significant biliary duct dilation. While there was a CBD stone noted on MRI, he has had no pain and his alkaline phosphatase seems out of proportion.
He does have dilated pancreatic duct, and on my review of the MRI there does appear to be some signal dropout in the head of the pancreas. I did review personally with radiology, no obvious mass on different sequences, though pancreatic malignancy
is suspicious and still in the differential given his presentation and radiographical findings. At this point we will continue to trend labs, await labs as ordered. I will discuss with Dr. Garrett, tentatively plan EUS with ERCP on Tuesday.
2. Cirrhosis: Decompensated with mild ascites and hepatic encephalopathy, no report of esophageal varices though there were varices noted on imaging, with chronic lymphedema. At this point we will continue salt restriction and Xifaxan. He has
mild thrombocytopenia and INR is preserved.
Subjective
Subjective
Date of Service: October 12, 2024
Patient doing okay, denies any abdominal pain, nausea or vomiting, fever or chills. No melena or cloudy thinking.
Objective
Data Reviewed
Laboratory Data:
Laboratory Results
10/12/24 07:08
10/12/24 07:08
Laboratory Results
PT 15.9 Sec (11.4-14.6) H 10/11/24 05:44
INR 1.22 10/11/24 05:44
APTT 32.0 Sec (23.4-35.0) 10/09/24 16:12
Phosphorus 4.1 mg/dl (2.5-4.5) 10/09/24 13:38
Magnesium 2.9 mg/dl (1.6-2.3) H 10/09/24 13:38
Total Bilirubin 3.0 mg/dl (0.2-1.3) H 10/12/24 07:08
AST 73 U/L (17-59) H 10/12/24 07:08
ALT 111 U/L (0-50) H 10/12/24 07:08
Alkaline Phosphatase 1162 U/L (38-126) H 10/12/24 07:08
Lipase 205 U/L (23-300) 10/09/24 13:38
Vital Signs and I&O:
Vital Signs
Temp Pulse Resp BP Pulse Ox
97.7 F 62 18 115/54 95
10/12/24 11:02 10/12/24 11:02 10/12/24 11:02 10/12/24 11:02 10/12/24 12:00
I&O
10/11/24 10/12/24 10/13/24
06:59 06:59 06:59
Intake Total 720 / 720 780 / 780
Output Total 2600 / 2600 2049 / 2049 425 / 425
Balance -1880 / -1880 -1270 / -1270 -425 / -425
Physical Exam
Physical Exam
General: NAD
Abdomen: normal bowel sounds, soft, no tenderness, no masses or bruits, minimal appreciable ascites
Extremities: Significant lymphedema
--- NOTE | 2024-10-12 12:49 | W.PN.HOSP.TC ---
Today's Communication/Plan
-
ERCP tuesday
hold abx for now
trend LFTs
resume bumex, monitor K
Assessment / Plan
Assessment / Plan
Physical Exam
General: Well Developed, Well Nourished, No Apparent Distress, Comfortable and Conversant
HEENT: NormoCephalic, Moist mucous membranes, Atraumatic, Nose Appears Normal and Ears Appear Normal; external sclera
Respiratory: Clear and Non Labored Respirations
Cardiac: S1/S2 and Regular Rhythm; No Murmur, Rub or Gallop
Breast: Deferred by me
GI: Soft, Non Tender, Normal Bowel Sounds and Distended; No Organomegaly
Rectal: Deferred by Provider
Genito-urinary: Deferred by me
Musculoskeletal: No Clubbing, No Cyanosis, RLE edema and Other (Left AKA)
Skin: Jaundice and IV/Catheter Site
Neuro: Awake, Alert, AO x 3 and Nonfocal/grossly intact
Psych: Calm and Intact Judgment/Insight
#Transaminitis
#History of alcohol cirrhosis
#Suspected decompensated cirrhosis
#Suspected Portal Hypertension
-F/u MRCP, MRI abdomen contrast: Obstruction of the distal common biliary duct is noted
� Suspect possible mass
� ERCP on Tuesday
� Patient is nontender, afebrile, can hold on antibiotics at this time unless becomes hemodynamically unstable or spikes temperature
� GI consult
�Continue Xifaxan
#Ascites
-not enough for tapping
-nontender
-ctm
� Hold diuresis in setting of WALDO for now; not on Aldactone � may be a good option due to persistent hypokalemia
� In no acute respiratory distress
-See plan above
# WALDO on CKD stage IIIa
� Baseline 1.5-1.6
� resume lasix and monitor
� improving
#Hypokalemia, in the setting of potassium wasting diuretic
-Continue standing KCl dose
-replete as needed
� Follow BMP this afternoon
�magnesium wnl
-restart bumex and monitor; will benefit from aldactone
#Diabetes type 2
� Reduce to half dose Lantus as n.p.o.
� Sliding scale
#Presumed Chronic HFpEF
� Resume bumex and monitor
-would benefit rather from Aldactone, was started last admission but appears to have stopped
#Pancreatic cystic lesions
-measuring up to 2.0 cm: possibly pseudocysts or side branch intraductal papillary mucinous neoplasms.
-F/u ERCP
PSVT
- continue metoprolol, CCB
-He reports he was asymptomatic with elevated heart rate yesterday
Lymphedema, chronic, he would benefit from lymphedema therapy
-ALLYSON wrap
#Hypothyroidism
� Continue Synthroid
#Hyperlipidemia
�hold statin
� Continue aspirin
#Anemia chronic disease
� Monitor
#Chronic pain syndrome
-Will continue with home medication regimen for analgesia
#S/p PPM
-Patient unsure medication sounds like SSS/tachybradycardia syndrome
-Scar is well-healed, no signs of dysfunction with
#Morbid obesity
#DVT ppx
-HSQ
Total time spent on today's encounter was 53 minutes which included time spent in counseling the patient/family regarding diagnosis and treatment plan as listed above, goals of care, and symptom management. Case was discussed with nursing staff,
specialists, and care coordinators/case management. All labs and imaging personally reviewed by me. Remainder the time spent in detailed review of previous records, lab data, imaging, and other medical provider documentation.
Anticipated Discharge: > 48 hours
Subjective/Interval History
-
Date of Service: October 12, 2024
No acute events
Objective Data
-
Labs:
Laboratory Results
10/12/24
07:08
WBC 3.4 L
Hgb 9.4 L
Hct 28.3 L
Plt Count 129 L
Sodium 138
Potassium 3.8
Chloride 104
Carbon Dioxide 26
BUN 57 H
Creatinine 1.3
Glucose 256 H
Calcium 8.2 L
Total Bilirubin 3.0 H
AST 73 H
ALT 111 H
Alkaline Phosphatase 1162 H
Vital Signs:
Vital Signs
Temp Pulse Resp BP Pulse Ox
97.7 F 62 18 115/54 95
10/12/24 11:02 10/12/24 11:02 10/12/24 11:02 10/12/24 11:02 10/12/24 12:00
I&O
10/11/24 10/12/24 10/13/24
06:59 06:59 06:59
Intake Total 720 / 720 780 / 780
Output Total 2600 / 2600 2049 / 2049 425 / 425
Balance -1880 / -1880 -1270 / -1270 -425 / -425
Review of Systems
-
History Source: Patient
All other systems: Not reviewed unless documented
Physical Exam
-
General: No Apparent Distress, Comfortable and Obese
HEENT: Normocephalic, Atraumatic, Moist Mucous Membranes and Anicteric
Respiratory: Rales (Trace, bibasilar) and Non Labored Respirations; Negative Wheezes, Rhonchi or Accessory Resp Muscle Use
Cardiac: Regular Rhythm and S1/S2; Negative Murmur, Rub or Gallop
GI: Soft, Nontender, Nondistended and Normal Bowel Sounds
Musculoskeletal: No Clubbing, No Cyanosis and Other (b/l LE swelling much improved; left AKA )
Skin: Warm and Dry; Negative Rash
Neuro: AO x 3, Nonfocal/Grossly Intact and Central Nerve's Intact
Psych: Calm
Data Reviewed
-
Diagnostic Radiology: Report Reviewed by me
CT Scan: Report Reviewed by me
MRI: Report Reviewed by me
Labs: Labs Reviewed by me
[2024-10-12] MEDS: NOVOLOG FLEXPEN-LOW RESISTANCE 5 UNITS SC (13:02)
--- NOTE | 2024-10-12 14:48 | CM ---
Reviewed the chart notes. CM continues to be available to patient/family and is monitoring medical plan for needs at discharge.
Plan: Discharge plans will depend on the patient's progress.
[2024-10-12 15:31] VITALS: BP 123/59
[2024-10-12 16:54] LABS: Glucose - Point of Care 460 mg/dl (70-99)
[2024-10-12 16:56] LABS: Glucose - Point of Care 420 mg/dl (70-99)
[2024-10-12 18:08] LABS: Glucose 453 mg/dl (70-99)
[2024-10-12] MEDS: VITAMIN B-12 1000 MCG PO (18:08)
[2024-10-12] MEDS: NOVOLOG FLEXPEN-LOW RESISTANCE 6 UNITS SC (18:14)
[2024-10-12] MEDS: NOVOLOG FLEXPEN 5 UNITS SC (19:15)
[2024-10-12 19:26] VITALS: BP 141/61
[2024-10-12] MEDS: MIRALAX PO (21:03)
[2024-10-12] MEDS: COLACE PO (21:03)
[2024-10-12] MEDS: FLOMAX 0.8 MG PO (21:07)
[2024-10-12 21:50] LABS: Glucose - Point of Care 426 mg/dl (70-99)
[2024-10-12 21:50] LABS: Glucose - Point of Care 399 mg/dl (70-99)
[2024-10-12 22:35] LABS: Glucose 386 mg/dl (70-99)
[2024-10-12] MEDS: NOVOLOG FLEXPEN 10 UNITS SC (23:01)
[2024-10-12 23:18] VITALS: BP 134/61
[2024-10-13 01:19] LABS: Glucose - Point of Care 334 mg/dl (70-99)
[2024-10-13] MEDS: NOVOLOG FLEXPEN 10 UNITS SC (01:34)
[2024-10-13 02:12] LABS: ANA, IgG Reflex to HEp-2 None Detected (None Detected)
[2024-10-13 03:50] VITALS: BP 132/66
[2024-10-13 04:16] LABS: LKM-1 Ab (IgG) 1.2 U (0.0-24.9); Soluble Liver Antigen Ab 1.2 U (0.0-24.9)
[2024-10-13 04:55] LABS: Glucose - Point of Care 288 mg/dl (70-99)
[2024-10-13] MEDS: SYNTHROID 137 MCG PO (05:00)
[2024-10-13 05:30] VITALS: BMI 40.4
[2024-10-13 07:16] LABS: Glucose - Point of Care 306 mg/dl (70-99)
[2024-10-13 07:24] LABS: Mitochondrial M2 Ab, IgG 1.9 Units (0.0-24.9)
[2024-10-13 07:37] VITALS: BP 118/52
[2024-10-13 08:18] LABS: Hematocrit 29.9 % (39.0-52.0); Hemoglobin 9.8 g/dL (13.0-18.0); Mean Corp Hgb Conc. 32.8 g/dL (33.0-37.0); Mean Corpuscular Hgb 30.2 pg (27.0-31.0); Mean Platelet Volume 10.2 fL (7.4-10.4); Platelet Count 111 10^3/uL (130-400); Red Blood Cell Count 3.25 10^6/uL (4.70-6.10); Red Cell Dist. Width 14.1 % (11.5-14.5); White Blood Cell Count 3.8 10^3/uL (4.8-10.8)
--- NOTE | 2024-10-13 08:33 | W.PN.GI.CBS2 ---
Today's Communication / Plan
-
Please see assessment and plan for details.
Assessment / Plan
-
1. Elevated LFTs: In a mixed pattern, though markedly elevated alkaline phosphatase with GGT, with significant biliary and pancreatic duct dilation. While there was a CBD stone noted on MRI, he has had no pain and his alkaline phosphatase seems
out of proportion. He does have dilated pancreatic duct, and on my review of the MRI there does appear to be some signal dropout in the head of the pancreas. I did review personally with radiology, no obvious mass on different sequences, though
pancreatic malignancy is suspicious and still in the differential given his presentation and radiographical findings. At this point we will continue to trend labs, autoimmune and viral serologies are negative. I discussed with Dr. Garrett, tentatively
plan EUS with ERCP on Tuesday.
2. Cirrhosis: Decompensated with mild ascites and hepatic encephalopathy, no report of esophageal varices though there were varices noted on imaging, with chronic lymphedema. At this point we will continue salt restriction and Xifaxan. He has
mild thrombocytopenia and INR is preserved. Would restart outpatient diuretics, on Bumex and metolazone, though will defer to internal medicine.
Subjective
Subjective
Date of Service: October 13, 2024
Patient feeling okay, no new abdominal pain, nausea or vomiting, fever or chills. MRI was reviewed personally with radiology, show changes consistent with cirrhosis and portal hypertension. There was a small stone noted in the distal CBD which was
dilated, though there was also pancreatic duct dilation to 5 mm with multiple cysts measuring up to 2.9 cm. On my review of the MRI there appear to be some signal dropout in the head of the pancreas though after discussion with radiology no
definitive mass was seen.
Objective
Data Reviewed
Laboratory Data:
Laboratory Results
10/13/24 08:07
Laboratory Results
PT 15.9 Sec (11.4-14.6) H 10/11/24 05:44
INR 1.22 10/11/24 05:44
APTT 32.0 Sec (23.4-35.0) 10/09/24 16:12
Phosphorus 4.1 mg/dl (2.5-4.5) 10/09/24 13:38
Magnesium 2.9 mg/dl (1.6-2.3) H 10/09/24 13:38
Total Bilirubin 3.0 mg/dl (0.2-1.3) H 10/12/24 07:08
AST 73 U/L (17-59) H 10/12/24 07:08
ALT 111 U/L (0-50) H 10/12/24 07:08
Alkaline Phosphatase 1162 U/L (38-126) H 10/12/24 07:08
Lipase 205 U/L (23-300) 10/09/24 13:38
Vital Signs and I&O:
Vital Signs
Temp Pulse Resp BP Pulse Ox
97.7 F 62 18 118/52 97
10/13/24 07:37 10/13/24 07:37 10/13/24 07:37 10/13/24 07:37 10/13/24 07:37
I&O
10/12/24 10/13/24 10/14/24
06:59 06:59 06:59
Intake Total 780 / 780 1600 / 1600
Output Total 2049 / 2049 2425 / 2425
Balance -1270 / -1270 -825 / -825
Physical Exam
Physical Exam
General: NAD, alert and oriented x 3
Abdomen: normal bowel sounds, soft, no tenderness, no masses or bruits, no appreciable ascites
Extremities: Significant chronic lymphedema
[2024-10-13] MEDS: LANTUS 0.6 UNITS SC (08:42)
[2024-10-13] MEDS: ROCALTROL 0.25 MCG PO (08:43)
[2024-10-13] MEDS: NOVOLOG FLEXPEN-LOW RESISTANCE 4 UNITS SC (08:43)
[2024-10-13] MEDS: MAGNESIUM OXIDE 500 MG PO (08:43)
[2024-10-13] MEDS: THERAGRAN 1 TABLET PO (08:43)
[2024-10-13] MEDS: TOPROL XL 75 MG PO ×2 (08:44→20:29)
[2024-10-13] MEDS: COLACE 100 MG PO (08:44)
[2024-10-13] MEDS: CARDIZEM CD 180 MG PO (08:44)
[2024-10-13] MEDS: XIFAXAN 550 MG PO ×2 (08:44→20:29)
[2024-10-13] MEDS: NEURONTIN 300 MG PO ×2 (08:44→20:29)
[2024-10-13] MEDS: KCL 40 MEQ PO (08:44)
[2024-10-13] MEDS: ASPIR LOW (ENTERIC COATED) 81 MG PO (08:44)
[2024-10-13] MEDS: HEPARIN 5000 UNITS SC ×2 (08:45→17:39)
[2024-10-13 08:50] LABS: ALT (SGPT) 94 U/L (0-50); AST (SGOT) 53 U/L (17-59); Albumin 3.2 g/dl (3.5-5.0); Alkaline Phosphatase 1147 U/L (38-126); Blood Urea Nitrogen 54 mg/dl (9-20); Calcium 8.5 mg/dl (8.4-10.2); Carbon Dioxide 25 mmol/L (22-30); Chloride 103 mmol/L (98-107); Estimated Creatinine Clearance 73 ml/min; Glucose 279 mg/dl (70-99); Magnesium 2.9 mg/dl (1.6-2.3); Potassium 4.3 mmol/L (3.5-5.1); Sodium 138 mmol/L (135-145); Total Bilirubin 2.5 mg/dl (0.2-1.3); Total Protein 6.2 g/dl (6.3-8.2); eGFR > 60.00
[2024-10-13] MEDS: BUMEX 2 MG PO (11:08)
[2024-10-13 11:10] LABS: Glucose - Point of Care 349 mg/dl (70-99)
[2024-10-13 11:30] VITALS: BP 124/54
--- NOTE | 2024-10-13 11:41 | W.PN.HOSP.TC ---
Today's Communication/Plan
-
resume Bumex
monitor renal function, K and will plan to initiate Aldactone
ERCP Tuesday
high corrective sliding scale
Assessment / Plan
Assessment / Plan
Physical Exam
General: Well Developed, Well Nourished, No Apparent Distress, Comfortable and Conversant
HEENT: NormoCephalic, Moist mucous membranes, Atraumatic, Nose Appears Normal and Ears Appear Normal; external sclera
Respiratory: Clear and Non Labored Respirations
Cardiac: S1/S2 and Regular Rhythm; No Murmur, Rub or Gallop
Breast: Deferred by me
GI: Soft, Non Tender, Normal Bowel Sounds and Distended; No Organomegaly
Rectal: Deferred by Provider
Genito-urinary: Deferred by me
Musculoskeletal: No Clubbing, No Cyanosis, RLE edema and Other (Left AKA)
Skin: Jaundice and IV/Catheter Site
Neuro: Awake, Alert, AO x 3 and Nonfocal/grossly intact
Psych: Calm and Intact Judgment/Insight
#Transaminitis
#History of alcohol cirrhosis
#Suspected decompensated cirrhosis
#Suspected Portal Hypertension
-F/u MRCP, MRI abdomen contrast: Obstruction of the distal common biliary duct is noted
� Suspect possible mass
� ERCP on Tuesday
� Patient is nontender, afebrile, can hold on antibiotics at this time unless becomes hemodynamically unstable or spikes temperature
� GI consult
�Continue Xifaxan
#Ascites
-not enough for tapping
-nontender
-ctm
� Resume diuresis; not on Aldactone � may be a good option due to persistent hypokalemia
� In no acute respiratory distress
-See plan above
# WALDO on CKD stage IIIa, resolved
� Baseline 1.5-1.6
� resume Bumex and monitor
� improving
#Hypokalemia, in the setting of potassium wasting diuretic
-Continue standing KCl dose
-replete as needed
� Follow BMP this afternoon
�magnesium wnl
-restart bumex and monitor; will benefit from aldactone; can initiate within 1 to 2 days
#Diabetes type 2
-a1c 7.7
� Lantus
� Sliding scale
#Presumed Chronic HFpEF
� Resume bumex and monitor
-would benefit rather from Aldactone, added metolazone in setting of severe hypokalemia; was started last admission but appears to have stopped at direction of cardiology as outpatient
#Pancreatic cystic lesions
-measuring up to 2.0 cm: possibly pseudocysts or side branch intraductal papillary mucinous neoplasms.
-F/u ERCP
PSVT
- continue metoprolol, CCB
-He reports he was asymptomatic with elevated heart rate yesterday
Lymphedema, chronic, he would benefit from lymphedema therapy
-ALLYSON wrap
#Hypothyroidism
� Continue Synthroid
#Hyperlipidemia
�hold statin
� Continue aspirin
#Anemia chronic disease
� Monitor
#Chronic pain syndrome
-Will continue with home medication regimen for analgesia
#S/p PPM
-Patient unsure medication sounds like SSS/tachybradycardia syndrome
-Scar is well-healed, no signs of dysfunction with
#Morbid obesity
#DVT ppx
-HSQ
Anticipated Discharge: > 48 hours
Subjective/Interval History
-
Date of Service: October 13, 2024
No acute events
Objective Data
-
Labs:
Laboratory Results
10/13/24
08:07
WBC 3.8 L
Hgb 9.8 L
Hct 29.9 L
Plt Count 111 L
Sodium 138
Potassium 4.3
Chloride 103
Carbon Dioxide 25
BUN 54 H
Creatinine 1.3
Glucose 279 H
Calcium 8.5
Total Bilirubin 2.5 H
AST 53
ALT 94 H
Alkaline Phosphatase 1147 H
Vital Signs:
Vital Signs
Temp Pulse Resp BP Pulse Ox
98.1 F 62 17 124/54 95
10/13/24 11:30 10/13/24 11:30 10/13/24 11:30 10/13/24 11:30 10/13/24 11:30
I&O
10/12/24 10/13/24 10/14/24
06:59 06:59 06:59
Intake Total 780 / 780 1600 / 1600
Output Total 2049 / 2049 2425 / 2425
Balance -1270 / -1270 -825 / -825
Review of Systems
-
History Source: Patient
All other systems: Not reviewed unless documented
Data Reviewed
-
Diagnostic Radiology: Report Reviewed by me
CT Scan: Report Reviewed by me
MRI: Report Reviewed by me
Labs: Labs Reviewed by me
[2024-10-13] MEDS: NOVOLOG FLEXPEN-HIGH RESISTANCE 10 UNITS SC (11:53)
[2024-10-13] MEDS: NOVOLOG FLEXPEN-LOW RESISTANCE SC (12:09)
[2024-10-13 15:27] VITALS: BP 130/59
[2024-10-13 16:44] LABS: Glucose - Point of Care 380 mg/dl (70-99)
[2024-10-13] MEDS: NOVOLOG FLEXPEN-HIGH RESISTANCE 12 UNITS SC (17:13)
[2024-10-13] MEDS: VITAMIN B-12 1000 MCG PO (17:39)
[2024-10-13 19:17] VITALS: BP 141/64
[2024-10-13] MEDS: COLACE PO (20:32)
[2024-10-13] MEDS: MIRALAX PO (20:32)
[2024-10-13] MEDS: DILAUDID 8 MG PO (20:38)
[2024-10-13] MEDS: FLOMAX 0.8 MG PO (21:34)
[2024-10-13 22:12] LABS: Glucose - Point of Care 325 mg/dl (70-99)
[2024-10-13] MEDS: NOVOLOG FLEXPEN 4 UNITS SC (22:19)
[2024-10-13 23:28] VITALS: BP 133/61
[2024-10-14] MEDS: HEPARIN 5000 UNITS SC ×3 (00:17→16:16)
[2024-10-14 00:22] LABS: Glucose - Point of Care 285 mg/dl (70-99)
[2024-10-14 03:39] VITALS: BP 125/58
[2024-10-14] MEDS: SYNTHROID 137 MCG PO (05:25)
[2024-10-14 06:00] VITALS: BMI 40.9
[2024-10-14 07:05] LABS: Hematocrit 29.1 % (39.0-52.0); Hemoglobin 9.3 g/dL (13.0-18.0); Mean Corpuscular Hgb 29.6 pg (27.0-31.0); Mean Corpuscular Volume 92.7 fL (80.0-94.0); Mean Platelet Volume 10.1 fL (7.4-10.4); Platelet Count 116 10^3/uL (130-400); Red Blood Cell Count 3.14 10^6/uL (4.70-6.10); Red Cell Dist. Width 14.2 % (11.5-14.5); White Blood Cell Count 3.8 10^3/uL (4.8-10.8)
[2024-10-14 07:20] LABS: Glucose - Point of Care 277 mg/dl (70-99)
[2024-10-14 07:40] VITALS: BP 128/60
[2024-10-14 07:41] LABS: ALT (SGPT) 76 U/L (0-50); AST (SGOT) 42 U/L (17-59); Albumin 2.8 g/dl (3.5-5.0); Alkaline Phosphatase 1015 U/L (38-126); Blood Urea Nitrogen 51 mg/dl (9-20); Calcium 8.4 mg/dl (8.4-10.2); Carbon Dioxide 28 mmol/L (22-30); Chloride 103 mmol/L (98-107); Estimated Creatinine Clearance 80 ml/min; Glucose 274 mg/dl (70-99); Magnesium 2.7 mg/dl (1.6-2.3); Potassium 4.3 mmol/L (3.5-5.1); Sodium 136 mmol/L (135-145); Total Protein 5.8 g/dl (6.3-8.2); eGFR > 60.00
--- NOTE | 2024-10-14 08:22 | W.PN.GI.CBS2 ---
Today's Communication / Plan
-
Please see assessment and plan for details.
Assessment / Plan
-
1. Elevated LFTs: In a mixed pattern, though markedly elevated alkaline phosphatase with GGT, with significant biliary and pancreatic duct dilation. While there was a CBD stone noted on MRI, he has had no pain and his alkaline phosphatase seems
out of proportion. He does have dilated pancreatic duct, and on my review of the MRI there does appear to be some signal dropout in the head of the pancreas. I did review personally with radiology, no obvious mass on different sequences, though
pancreatic malignancy is suspicious and still in the differential given his presentation and radiographical findings. At this point we will continue to trend labs, autoimmune and viral serologies are negative. For EUS/ERCP tomorrow.
2. Cirrhosis: Decompensated with mild ascites and hepatic encephalopathy, no report of esophageal varices though there were varices noted on imaging, with chronic lymphedema. At this point we will continue salt restriction and Xifaxan. He has
mild thrombocytopenia and INR is preserved. He has been restarted on Bumex.
Subjective
Subjective
Date of Service: October 14, 2024
Patient feeling okay, denies any abdominal pain, fever, chills, nausea or vomiting.
Objective
Data Reviewed
Laboratory Data:
Laboratory Results
10/14/24 06:15
10/14/24 06:15
Laboratory Results
PT 15.9 Sec (11.4-14.6) H 10/11/24 05:44
INR 1.22 10/11/24 05:44
APTT 32.0 Sec (23.4-35.0) 10/09/24 16:12
Phosphorus 4.1 mg/dl (2.5-4.5) 10/09/24 13:38
Magnesium 2.7 mg/dl (1.6-2.3) H 10/14/24 06:15
Total Bilirubin 2.0 mg/dl (0.2-1.3) H 10/14/24 06:15
AST 42 U/L (17-59) 10/14/24 06:15
ALT 76 U/L (0-50) H 10/14/24 06:15
Alkaline Phosphatase 1015 U/L (38-126) H 10/14/24 06:15
Lipase 205 U/L (23-300) 10/09/24 13:38
Vital Signs and I&O:
Vital Signs
Temp Pulse Resp BP Pulse Ox
97.5 F 62 17 128/60 96
10/14/24 07:40 10/14/24 07:40 10/14/24 07:40 10/14/24 07:40 10/14/24 07:40
I&O
10/13/24 10/14/24 10/15/24
06:59 06:59 06:59
Intake Total 1600 / 1600 1160 / 1160
Output Total 2425 / 2425 1750 / 1750
Balance -825 / -825 -590 / -590
Physical Exam
Physical Exam
General: NAD, alert and oriented x 3
Abdomen: normal bowel sounds, soft, no tenderness, no masses or bruits, minimal appreciable ascites
Extremities: Chronic lymphedema
[2024-10-14] MEDS: NOVOLOG FLEXPEN-HIGH RESISTANCE 7 UNITS SC (08:58)
[2024-10-14] MEDS: KCL 40 MEQ PO (08:59)
[2024-10-14] MEDS: LANTUS 0.6 UNITS SC (08:59)
[2024-10-14] MEDS: CARDIZEM CD 180 MG PO (08:59)
[2024-10-14] MEDS: ASPIR LOW (ENTERIC COATED) 81 MG PO (08:59)
[2024-10-14] MEDS: THERAGRAN 1 TABLET PO (09:00)
[2024-10-14] MEDS: TOPROL XL 75 MG PO ×2 (09:00→21:17)
[2024-10-14] MEDS: COLACE 100 MG PO ×2 (09:00→21:18)
[2024-10-14] MEDS: MAGNESIUM OXIDE 500 MG PO (09:01)
[2024-10-14] MEDS: BUMEX 2 MG PO (09:01)
[2024-10-14] MEDS: NEURONTIN 300 MG PO ×2 (09:01→21:16)
[2024-10-14] MEDS: ROCALTROL 0.25 MCG PO (09:02)
[2024-10-14] MEDS: XIFAXAN 550 MG PO ×2 (09:02→21:16)
[2024-10-14 11:12] LABS: Glucose - Point of Care 366 mg/dl (70-99)
[2024-10-14] MEDS: NOVOLOG FLEXPEN-HIGH RESISTANCE 12 UNITS SC (11:52)
[2024-10-14] MEDS: MIRALAX 17 GRAMS PO ×2 (11:53→21:18)
--- NOTE | 2024-10-14 12:07 | W.PN.HOSP.TC ---
Today's Communication/Plan
-
start Aldactone
monitor bmp
EUS with ERCP tomorrow
Assessment / Plan
Assessment / Plan
Physical Exam
General: Well Developed, Well Nourished, No Apparent Distress, Comfortable and Conversant
HEENT: NormoCephalic, Moist mucous membranes, Atraumatic, Nose Appears Normal and Ears Appear Normal; external sclera
Respiratory: Clear and Non Labored Respirations
Cardiac: S1/S2 and Regular Rhythm; No Murmur, Rub or Gallop
Breast: Deferred by me
GI: Soft, Non Tender, Normal Bowel Sounds and Distended; No Organomegaly
Rectal: Deferred by Provider
Genito-urinary: Deferred by me
Musculoskeletal: No Clubbing, No Cyanosis, RLE edema and Other (Left AKA)
Skin: Jaundice and IV/Catheter Site
Neuro: Awake, Alert, AO x 3 and Nonfocal/grossly intact
Psych: Calm and Intact Judgment/Insight
#Transaminitis
#History of alcohol cirrhosis
#Suspected decompensated cirrhosis
#Suspected Portal Hypertension
-F/u MRCP, MRI abdomen contrast: Obstruction of the distal common biliary duct is noted
� Suspect possible mass
� EUS and ERCP on Tuesday
� Patient is nontender, afebrile, can hold on antibiotics at this time unless becomes hemodynamically unstable or spikes temperature
� GI consult
�Continue Xifaxan
#Ascites
-not enough for tapping
-nontender
-ctm
� Resume diuresis; not on Aldactone � may be a good option due to persistent hypokalemia; Start aldactone today;
� In no acute respiratory distress
-See plan above
# WALDO on CKD stage IIIa, resolved
� Baseline 1.5-1.6
� resume Bumex and monitor
� improving
#Hypokalemia, in the setting of potassium wasting diuretic
-Continue standing KCl dose
-replete as needed
� Follow BMP this afternoon
�magnesium wnl
-restart bumex and monitor; will benefit from aldactone; initiate and monitor
-cards wanted metolazone although with severe hypokalemia - will avoid now
#Diabetes type 2
-a1c 7.7
� Lantus
� Sliding scale
#Presumed Chronic HFpEF
� Resume bumex and monitor
-start Aldactone
-added metolazone outpt cardiology for diuresis although holding in setting of severe hypokalemia;
#Pancreatic cystic lesions
-measuring up to 2.0 cm: possibly pseudocysts or side branch intraductal papillary mucinous neoplasms.
-F/u ERCP
PSVT
- continue metoprolol, CCB
-He reports he was asymptomatic with elevated heart rate yesterday
Lymphedema, chronic, he would benefit from lymphedema therapy
-ALLYSON wrap
#Hypothyroidism
� Continue Synthroid
#Hyperlipidemia
�hold statin
� Continue aspirin
#Anemia chronic disease
� Monitor
#Chronic pain syndrome
-Will continue with home medication regimen for analgesia
#S/p PPM
-Patient unsure medication sounds like SSS/tachybradycardia syndrome
-Scar is well-healed, no signs of dysfunction with
#Morbid obesity
#DVT ppx
-HSQ
Anticipated Discharge: Within 24 hours
Subjective/Interval History
-
Date of Service: October 14, 2024
No acute events overnight
Objective Data
-
Labs:
Laboratory Results
10/14/24
06:15
WBC 3.8 L
Hgb 9.3 L
Hct 29.1 L
Plt Count 116 L
Sodium 136
Potassium 4.3
Chloride 103
Carbon Dioxide 28
BUN 51 H
Creatinine 1.2
Glucose 274 H
Calcium 8.4
Total Bilirubin 2.0 H
AST 42
ALT 76 H
Alkaline Phosphatase 1015 H
Vital Signs:
Vital Signs
Temp Pulse Resp BP Pulse Ox
97.5 F 62 17 128/60 96
10/14/24 07:40 10/14/24 09:01 10/14/24 07:40 10/14/24 09:01 10/14/24 07:40
I&O
10/13/24 10/14/24 10/15/24
06:59 06:59 06:59
Intake Total 1600 / 1600 1160 / 1160
Output Total 2425 / 2425 1750 / 1750
Balance -825 / -825 -590 / -590
Review of Systems
-
History Source: Patient
All other systems: Not reviewed unless documented
Data Reviewed
-
Diagnostic Radiology: Report Reviewed by me
CT Scan: Report Reviewed by me
MRI: Report Reviewed by me
Labs: Labs Reviewed by me
[2024-10-14] MEDS: ALDACTONE 12.5 MG PO (13:10)
[2024-10-14 15:22] VITALS: BP 125/58
[2024-10-14 16:25] LABS: Glucose - Point of Care 316 mg/dl (70-99)
[2024-10-14] MEDS: VITAMIN B-12 1000 MCG PO (17:47)
[2024-10-14] MEDS: NOVOLOG FLEXPEN-HIGH RESISTANCE 10 UNITS SC (17:47)
[2024-10-14] MEDS: DILAUDID 8 MG PO (17:52)
[2024-10-14] MEDS: FLOMAX 0.8 MG PO (21:18)
[2024-10-14 22:19] LABS: Glucose - Point of Care 354 mg/dl (70-99)
[2024-10-14 23:35] VITALS: BP 140/66
[2024-10-14] MEDS: NOVOLOG FLEXPEN 10 UNITS SC (23:55)
[2024-10-15] VITALS (8 sets, daily range): BP systolic 121–157; BP diastolic 57–71; BMI 41.4
[2024-10-15] MEDS: HEPARIN 5000 UNITS SC ×4 (00:16→23:03)
[2024-10-15 02:19] LABS: Glucose - Point of Care 308 mg/dl (70-99)
[2024-10-15] MEDS: NOVOLOG FLEXPEN 10 UNITS SC (02:38)
[2024-10-15 04:50] LABS: Glucose - Point of Care 242 mg/dl (70-99)
[2024-10-15] MEDS: SYNTHROID 137 MCG PO (06:23)
[2024-10-15 07:47] LABS: Hemoglobin 9.1 g/dL (13.0-18.0); Mean Corp Hgb Conc. 32.5 g/dL (33.0-37.0); Mean Corpuscular Volume 92.4 fL (80.0-94.0); Mean Platelet Volume 10.3 fL (7.4-10.4); Platelet Count 121 10^3/uL (130-400); Red Blood Cell Count 3.03 10^6/uL (4.70-6.10); Red Cell Dist. Width 14.1 % (11.5-14.5); White Blood Cell Count 4.6 10^3/uL (4.8-10.8)
--- NOTE | 2024-10-15 08:06 | W.PN.HOSP.TC ---
Today's Communication/Plan
-
EUS/ERCP today
as pt is NPO, will decrease Lantus dose this morning, resume prior dose 10/16
Assessment / Plan
Assessment / Plan
#Transaminitis
#History of alcohol cirrhosis
#Suspected decompensated cirrhosis
#Suspected Portal Hypertension
-F/u MRCP, MRI abdomen contrast: 1. SEVERE HEPATIC CIRRHOSIS.
2. PORTAL HYPERTENSION with MODERATE SPLENOMEGALY and gastrosplenic varices in the left upper quadrant of the abdomen.
3. CHOLEDOCHOLITHIASIS in the distal common bile duct causing a partial bile duct obstruction.
4. Cholelithiasis, gallbladder distention, and diffuse gallbladder wall thickening.
5. Small volume ascites.
6. Mild to moderate chronic bilateral renal disease.
7. MULTIPLE PANCREATIC CYSTS measuring up to 2.9 cm in size.
8. Moderate cardiomegaly.
9. Previous extensive bilateral posterior thoracolumbar instrumentation, previous laminectomies at T12 and L1, and osseous fusion across the T12/L1 intervertebral disc.
� Concern for possible mass in head of pancreas, as per Dr. Franco
� EUS and ERCP today
� Patient is nontender, afebrile, can hold on antibiotics at this time unless becomes hemodynamically unstable or spikes temperature
� GI input appreciated
�Continue Xifaxan
#Ascites
-not enough for tapping
-nontender
-ctm
� Resume diuresis; not on Aldactone � may be a good option due to persistent hypokalemia; Started aldactone 10/14;
� In no acute respiratory distress
-See plan above
# WALDO on CKD stage IIIa, resolved
� Baseline 1.5-1.6
� resumed Bumex/Aldactone and monitor
� improving
#Hypokalemia, in the setting of potassium wasting diuretic
-Continue standing KCl dose
-replete as needed
� Follow BMP this afternoon
�magnesium wnl
-restart bumex and monitor; will benefit from aldactone; initiate and monitor
CBC resulted, CMP labs to be drawn now
-cards wanted metolazone although with severe hypokalemia - will avoid now
#Diabetes type 2
-a1c 7.7%
� Lantus
� Sliding scale
glu this morning 242
Pt receives Lantus in morning, he is NPO, will give 1/2 usual dos of Lantus this morning and resume usual 60 units tomorrow. Reviewed with GUILHERME Ferguson
#Presumed Chronic HFpEF
� Resume bumex and monitor
-start Aldactone
-added metolazone outpt cardiology for diuresis although holding in setting of severe hypokalemia;
#Pancreatic cystic lesions
-measuring up to 2.0 cm: possibly pseudocysts or side branch intraductal papillary mucinous neoplasms.
-F/u ERCP
PSVT
- continue metoprolol, CCB
-He reports he was asymptomatic with elevated heart rate yesterday
Lymphedema, chronic, he would benefit from lymphedema therapy
-ALLYSON wrap
#Hypothyroidism
� Continue Synthroid
#Hyperlipidemia
�hold statin
� Continue aspirin
#Anemia chronic disease
� Monitor
#Chronic pain syndrome
-Will continue with home medication regimen for analgesia
#S/p PPM
-Patient unsure medication sounds like SSS/tachybradycardia syndrome
-Scar is well-healed, no signs of dysfunction with
#Morbid obesity
#DVT ppx
-HSQ
Anticipated Discharge: > 48 hours
Subjective/Interval History
-
Date of Service: October 15, 2024
awake, alert, conversant. Apprehensive about planned EUS/ERCP
Objective Data
-
Labs:
Laboratory Results
10/15/24
07:25
WBC 4.6 L
Hgb 9.1 L
Hct 28.0 L
Plt Count 121 L
Sodium Pending
Potassium Pending
Chloride Pending
Carbon Dioxide Pending
BUN Pending
Creatinine Pending
Glucose Pending
Calcium Pending
Total Bilirubin Pending
AST Pending
ALT Pending
Alkaline Phosphatase Pending
Vital Signs:
Vital Signs
Temp Pulse Resp BP Pulse Ox
98.0 F 67 18 140/66 98
10/14/24 23:35 10/14/24 23:35 10/14/24 23:35 10/14/24 23:35 10/14/24 23:35
I&O
10/14/24 10/15/24 10/16/24
06:59 06:59 06:59
Intake Total 1160 / 1160 900 / 900
Output Total 1750 / 1750 2049
Balance -590 / -590 -1150 / -1150
Review of Systems
-
History Source: Patient and Coordinated Provider
Constitutional: Denies Fever
EENT: Reports No Symptoms Reported
Respiratory: Reports No Symptoms
Cardiac: Reports No Symptoms
Abdomen/GI: Reports Abdominal Pain (pt denies) and Bloated
Physical Exam
-
General: Well Developed, Well Nourished, No Apparent Distress and Morbidly Obese
HEENT: Normocephalic, Atraumatic and Moist Mucous Membranes
Respiratory: Clear to Auscultation; Negative Wheezes, Rales or Rhonchi
Cardiac: Regular Rhythm and S1/S2
GI: Soft, Nontender, Normal Bowel Sounds and Distended
Musculoskeletal: No Clubbing, No Cyanosis, Edema, Right Lower Extrem (2+) and Other (left AKA)
Neuro: Awake, Alert and Oriented
[2024-10-15 08:22] LABS: Glucose - Point of Care 288 mg/dl (70-99)
[2024-10-15 08:38] LABS: ALT (SGPT) 61 U/L (0-50); AST (SGOT) 37 U/L (17-59); Albumin 2.9 g/dl (3.5-5.0); Alkaline Phosphatase 837 U/L (38-126); Blood Urea Nitrogen 54 mg/dl (9-20); Calcium 8.5 mg/dl (8.4-10.2); Carbon Dioxide 29 mmol/L (22-30); Chloride 102 mmol/L (98-107); Estimated Creatinine Clearance 81 ml/min; Glucose 223 mg/dl (70-99); Magnesium 2.4 mg/dl (1.6-2.3); Potassium 4.4 mmol/L (3.5-5.1); Sodium 135 mmol/L (135-145); Total Bilirubin 1.7 mg/dl (0.2-1.3); Total Protein 5.9 g/dl (6.3-8.2); eGFR > 60.00
[2024-10-15] MEDS: NOVOLOG FLEXPEN-HIGH RESISTANCE SC ×2 (08:46→12:38)
[2024-10-15] MEDS: CARDIZEM CD 180 MG PO (08:46)
[2024-10-15] MEDS: MAGNESIUM OXIDE 500 MG PO (08:47)
[2024-10-15] MEDS: NEURONTIN 300 MG PO ×2 (08:47→20:52)
[2024-10-15] MEDS: XIFAXAN 550 MG PO ×2 (08:47→20:52)
[2024-10-15] MEDS: THERAGRAN 1 TABLET PO (08:48)
[2024-10-15] MEDS: ALDACTONE 12.5 MG PO (08:48)
[2024-10-15] MEDS: ROCALTROL 0.25 MCG PO (08:48)
[2024-10-15] MEDS: BUMEX 2 MG PO (08:48)
[2024-10-15] MEDS: COLACE 100 MG PO ×2 (08:48→20:53)
[2024-10-15] MEDS: KCL 40 MEQ PO (08:48)
[2024-10-15] MEDS: ASPIR LOW (ENTERIC COATED) 81 MG PO (08:48)
[2024-10-15] MEDS: LANTUS SC (08:49)
[2024-10-15] MEDS: TOPROL XL 75 MG PO ×2 (08:49→20:52)
[2024-10-15] MEDS: LANTUS 0.3 UNITS SC (09:19)
[2024-10-15 11:54] LABS: Glucose - Point of Care 232 mg/dl (70-99)
--- NOTE | 2024-10-15 13:23 | CM ---
Reviewed the chart notes. Per note, patient is scheduled for EUS and ERCP today. CM continues to be available to patient/family and is monitoring medical plan for needs at discharge.
Plan: Discharge plans will depend on the patient's progress at time of discharge.
[2024-10-15 17:01] LABS: Glucose - Point of Care 217 mg/dl (70-99)
[2024-10-15] MEDS: NOVOLOG FLEXPEN-HIGH RESISTANCE 4 UNITS SC (18:03)
[2024-10-15] MEDS: VITAMIN B-12 1000 MCG PO (18:03)
[2024-10-15] MEDS: NSS 500 IV (18:06)
[2024-10-15] MEDS: MIRALAX 17 GRAMS PO (20:52)
[2024-10-15] MEDS: DILAUDID 8 MG PO (20:57)
[2024-10-15] MEDS: FLOMAX 0.8 MG PO (20:58)
[2024-10-15 21:21] LABS: Glucose - Point of Care 406 mg/dl (70-99)
[2024-10-15 22:46] LABS: Glucose 375 mg/dl (70-99)
[2024-10-15] MEDS: NOVOLOG FLEXPEN 15 UNITS SC (23:01)
[2024-10-16 01:17] LABS: Glucose - Point of Care 347 mg/dl (70-99)
[2024-10-16] MEDS: NOVOLOG FLEXPEN 15 UNITS SC ×2 (02:14→05:22)
[2024-10-16 05:02] LABS: Glucose - Point of Care 362 mg/dl (70-99)
[2024-10-16 05:02] LABS: Glucose - Point of Care 376 mg/dl (70-99)
[2024-10-16] MEDS: SYNTHROID 137 MCG PO (05:23)
[2024-10-16 06:00] VITALS: BMI 41.8
[2024-10-16 07:25] VITALS: BP 124/60
[2024-10-16 07:35] LABS: Glucose - Point of Care 352 mg/dl (70-99)
--- NOTE | 2024-10-16 07:48 | W.PN.GI.CBS2 ---
Today's Communication / Plan
-
Advance diet. Plan for abdominal xray in 2 weeks and office follow-up with Dr. Garrett in 8 weeks. Needs office follow-up with Dr. Reid or if wishes to transition care, can arrange for f/u in our office for management of his cirrhosis. GI will sign
off, please call with questions.
Assessment / Plan
-
1. Elevated LFTs: In a mixed pattern, though markedly elevated alkaline phosphatase with GGT, with significant biliary and pancreatic duct dilation. He is s/p EUS and ERCP yesterday with Dr. Garrett, choledocholithiasis found with biliary
sphincterotomy and balloon extraction and placement of plastic stent into the ventral pancreatic duct. EUS demonstrated pancreatic parenchymal abnormalities consisting of hyperechoic strands, hyperechoic foci and lobularity in the pancreatic head
and body, a cystic lesion in the pancreatic body, FNA performed. A cystic lesion in the pancreatic tail. There was endosonographically a dilated appearance of the main pancreatic duct. No significant pathology in the ampulla.
That said, the findings on ERCP/EUS seem out of proportion to degree of elevation in alkaline phosphatase. AM labs pending.
Autoimmune and viral serologies are negative. Will plan for abdominal xray in 2 weeks and office f/u with Dr. Garrett in 8 weeks. Will advance diet.
2. Cirrhosis: Decompensated with mild ascites and hepatic encephalopathy, no evidence of esophageal or gastric varices but evidence of portal hypertensive gastropathy. report of esophageal varices though there were varices noted on imaging, with
chronic lymphedema. At this point we will continue salt restriction and Xifaxan. He has mild thrombocytopenia and INR is preserved. He has been restarted on Bumex as well as aldactone.
Subjective
Subjective
Date of Service: October 16, 2024
Patient seen in follow-up this morning. Reports feeling well this morning, no abdominal pain, requesting breakfast. He underwent ERCP and EUS with Dr. Garrett yesterday.
EUS Findings: Impression: - A large amount of food (residue) in the stomach.
- Portal hypertensive gastropathy.
- A cystic lesion was seen in the pancreatic body.
Fine needle aspiration performed. Fine needle
aspiration for fluid performed.
- A cystic lesion was seen in the pancreatic tail.
- Main pancreatic duct (MPD) diameter was measured.
Endosonographically, the MPD had a dilated appearance.
- Pancreatic parenchymal abnormalities consisting of
hyperechoic strands, hyperechoic foci and lobularity
were noted in the pancreatic head and pancreatic body.
- One stone was visualized endosonographically in the
common bile duct.
- There was dilation in the common bile duct which
measured up to 8 mm.
- There was no sign of significant pathology in the
ampulla.
ERCP Findings: Impression: - A large amount of food (residue) in the stomach.
- Retained food in the duodenum.
- The major papilla appeared normal.
- A filling defect consistent with a stone was seen on
the cholangiogram.
- The common bile duct was mildly dilated.
- Choledocholithiasis was found. Likely removal was
accomplished (stone was not visualized due to large
food bezoar) by biliary sphincterotomy and balloon
extraction.
- A biliary sphincterotomy was performed.
- The biliary tree was swept.
- One plastic stent was placed into the ventral
pancreatic duct.
Objective
Data Reviewed
Laboratory Data:
Laboratory Results
PT 15.9 Sec (11.4-14.6) H 10/11/24 05:44
INR 1.22 10/11/24 05:44
APTT 32.0 Sec (23.4-35.0) 10/09/24 16:12
Phosphorus 4.1 mg/dl (2.5-4.5) 10/09/24 13:38
Magnesium 2.4 mg/dl (1.6-2.3) H 10/15/24 07:25
Total Bilirubin 1.7 mg/dl (0.2-1.3) H 10/15/24 07:25
AST 37 U/L (17-59) 10/15/24 07:25
ALT 61 U/L (0-50) H 10/15/24 07:25
Alkaline Phosphatase 837 U/L (38-126) H 10/15/24 07:25
Lipase 205 U/L (23-300) 10/09/24 13:38
Vital Signs and I&O:
Vital Signs
Temp Pulse Resp BP Pulse Ox
99.0 F 62 20 131/60 97
10/15/24 22:50 10/15/24 22:50 10/15/24 22:50 10/15/24 22:50 10/15/24 22:50
I&O
10/15/24 10/16/24 10/17/24
06:59 06:59 06:59
Intake Total 900 / 900 1080 / 1080
Output Total 2049 1375 / 1375
Balance -1150 / -1150 -295 / -295
[2024-10-16] MEDS: NOVOLOG FLEXPEN-HIGH RESISTANCE 12 UNITS SC ×3 (08:28→18:32)
[2024-10-16] MEDS: ROCALTROL 0.25 MCG PO (08:29)
[2024-10-16] MEDS: MAGNESIUM OXIDE 500 MG PO (08:29)
[2024-10-16] MEDS: CARDIZEM CD 180 MG PO (08:29)
[2024-10-16] MEDS: BUMEX 2 MG PO (08:29)
[2024-10-16] MEDS: XIFAXAN 550 MG PO ×2 (08:29→20:41)
[2024-10-16] MEDS: KCL 40 MEQ PO (08:30)
[2024-10-16] MEDS: THERAGRAN 1 TABLET PO (08:30)
[2024-10-16] MEDS: COLACE 100 MG PO ×2 (08:30→20:41)
[2024-10-16] MEDS: TOPROL XL 75 MG PO ×2 (08:30→20:41)
[2024-10-16] MEDS: ALDACTONE 12.5 MG PO (08:30)
[2024-10-16] MEDS: ASPIR LOW (ENTERIC COATED) 81 MG PO (08:30)
[2024-10-16] MEDS: HEPARIN 5000 UNITS SC (08:30)
[2024-10-16] MEDS: NEURONTIN 300 MG PO ×2 (08:30→20:42)
[2024-10-16] MEDS: LANTUS 0.6 UNITS SC (08:31)
[2024-10-16] MEDS: LANTUS SC (08:36)
[2024-10-16 08:55] LABS: Hematocrit 28.5 % (39.0-52.0); Hemoglobin 9.5 g/dL (13.0-18.0); Mean Corp Hgb Conc. 33.3 g/dL (33.0-37.0); Mean Corpuscular Hgb 30.6 pg (27.0-31.0); Mean Corpuscular Volume 91.9 fL (80.0-94.0); Mean Platelet Volume 10.3 fL (7.4-10.4); Platelet Count 120 10^3/uL (130-400); White Blood Cell Count 4.7 10^3/uL (4.8-10.8)
[2024-10-16 09:57] LABS: Blood Urea Nitrogen 51 mg/dl (9-20); Glucose 331 mg/dl (70-99)
[2024-10-16 09:58] LABS: ALT (SGPT) 76 U/L (0-50); AST (SGOT) 76 U/L (17-59); Albumin 3.2 g/dl (3.5-5.0); Alkaline Phosphatase 1112 U/L (38-126); Calcium 8.6 mg/dl (8.4-10.2); Carbon Dioxide 24 mmol/L (22-30); Chloride 102 mmol/L (98-107); Estimated Creatinine Clearance 81 ml/min; Magnesium 2.5 mg/dl (1.6-2.3); Sodium 135 mmol/L (135-145); Total Bilirubin 2.4 mg/dl (0.2-1.3); Total Protein 6.3 g/dl (6.3-8.2); eGFR > 60.00
--- NOTE | 2024-10-16 10:19 | W.PN.HOSP.TC ---
Today's Communication/Plan
-
stop KCL supplement with pt on Aldactone and Metolazone stopped
check BMP in AM
hold dc for 1 more day
Assessment / Plan
Assessment / Plan
#Transaminitis
#History of alcohol cirrhosis
#Suspected decompensated cirrhosis
#Suspected Portal Hypertension
-F/u MRCP, MRI abdomen contrast: 1. SEVERE HEPATIC CIRRHOSIS.
2. PORTAL HYPERTENSION with MODERATE SPLENOMEGALY and gastrosplenic varices in the left upper quadrant of the abdomen.
3. CHOLEDOCHOLITHIASIS in the distal common bile duct causing a partial bile duct obstruction.
4. Cholelithiasis, gallbladder distention, and diffuse gallbladder wall thickening.
5. Small volume ascites.
6. Mild to moderate chronic bilateral renal disease.
7. MULTIPLE PANCREATIC CYSTS measuring up to 2.9 cm in size.
8. Moderate cardiomegaly.
9. Previous extensive bilateral posterior thoracolumbar instrumentation, previous laminectomies at T12 and L1, and osseous fusion across the T12/L1 intervertebral disc.
� Concern for possible mass in head of pancreas, as per Dr. Franco
� EUS and ERCP 10/15
ERCP: - A large amount of food (residue) in the stomach.
- Retained food in the duodenum.
- The major papilla appeared normal.
- A filling defect consistent with a stone was seen on
the cholangiogram.
- The common bile duct was mildly dilated.
- Choledocholithiasis was found. Likely removal was
accomplished (stone was not visualized due to large
food bezoar) by biliary sphincterotomy and balloon
extraction.
- A biliary sphincterotomy was performed.
- The biliary tree was swept.
- One plastic stent was placed into the ventral
pancreatic duct.
EUS: - A large amount of food (residue) in the stomach.
- Portal hypertensive gastropathy.
- A cystic lesion was seen in the pancreatic body.
Fine needle aspiration performed. Fine needle
aspiration for fluid performed.
- A cystic lesion was seen in the pancreatic tail.
- Main pancreatic duct (MPD) diameter was measured.
Endosonographically, the MPD had a dilated appearance.
- Pancreatic parenchymal abnormalities consisting of
hyperechoic strands, hyperechoic foci and lobularity
were noted in the pancreatic head and pancreatic body.
- One stone was visualized endosonographically in the
common bile duct.
- There was dilation in the common bile duct which
measured up to 8 mm.
- There was no sign of significant pathology in the
ampulla.
� Patient is nontender, afebrile, can hold on antibiotics at this time unless becomes hemodynamically unstable or spikes temperature
� GI input appreciated
�Continue Xifaxan
#Ascites
-not enough for tapping
-nontender
-ctm
� Resume diuresis; not on Aldactone � may be a good option due to persistent hypokalemia; Started aldactone 10/14;
� In no acute respiratory distress
-See plan above
# WALDO on CKD stage IIIa, resolved
� Baseline 1.5-1.6--->Creat now 1.2
� resumed Bumex/Aldactone and monitor
� improving
#Hypokalemia, in the setting of potassium wasting diuretic
resolved K now 5.0
-Continue standing KCl dose
Unclear as to why significant increase in K with pt on usual dose of KCl 40 Meq daily, possibly related to hyperglycemia yesterday, but more likely due to Aldactone
Unfortunately pt labs just became available and pt has already received dose of Aldactone and KCL
Will stop KCL supplement and check K tomorrow, If K is acceptable potential dc, but would not send home at this time with significant rise in K
-replete as needed
�magnesium wnl
-restart bumex and monitor; started on low dose aldactone; monitor
-cards wanted metolazone although with severe hypokalemia - will avoid now
K was 2.7 on admission
#Diabetes type 2
-a1c 7.7%
� Lantus
� Sliding scale
glu 10/15 morning 242
Pt receives Lantus in morning, he was NPO, was given 1/2 usual dos of Lantus yesterday morning to avoid hypoglycemia during procedures and resumed usual 60 units today.
#Presumed Chronic HFpEF
� Resume bumex and monitor
-started Aldactone
-added metolazone outpt cardiology for diuresis although holding in setting of severe hypokalemia;
#Pancreatic cystic lesions
-measuring up to 2.0 cm: possibly pseudocysts or side branch intraductal papillary mucinous neoplasms.
-F/u ERCP
PSVT
- continue metoprolol, CCB
-He reports he was asymptomatic with elevated heart rate yesterday
Lymphedema, chronic, he would benefit from lymphedema therapy
-ALLYSON wrap
#Hypothyroidism
� Continue Synthroid
#Hyperlipidemia
�hold statin
� Continue aspirin
#Anemia chronic disease
� Monitor
#Chronic pain syndrome
-Will continue with home medication regimen for analgesia
#S/p PPM
-Patient unsure medication sounds like SSS/tachybradycardia syndrome
-Scar is well-healed, no signs of dysfunction with
#Morbid obesity
#DVT ppx
-HSQ
Anticipated Discharge: 24 - 48 hours
Subjective/Interval History
-
Date of Service: October 16, 2024
Awake, alert, good appetite
Objective Data
-
Labs:
Laboratory Results
10/15/24 10/16/24
21:43 08:43
WBC 4.7 L
Hgb 9.5 L
Hct 28.5 L
Plt Count 120 L
Sodium 135
Potassium 5.0
Chloride 102
Carbon Dioxide 24
BUN 51 H
Creatinine 1.2
Glucose 375 H 331 H
Calcium 8.6
Total Bilirubin 2.4 H
AST 76 H
ALT 76 H
Alkaline Phosphatase 1112 H
Vital Signs:
Vital Signs
Temp Pulse Resp BP Pulse Ox
97.5 F 64 15 124/60 97
10/16/24 07:25 10/16/24 08:29 10/16/24 07:25 10/16/24 08:30 10/16/24 07:25
I&O
10/15/24 10/16/24 10/17/24
06:59 06:59 06:59
Intake Total 900 / 900 1080 / 1080
Output Total 2049 1375 / 1375
Balance -1150 / -1150 -295 / -295
Review of Systems
-
History Source: Patient and Coordinated Provider
Constitutional: Denies Fever
EENT: Reports No Symptoms Reported
Respiratory: Reports No Symptoms
Cardiac: Reports No Symptoms
Abdomen/GI: Reports Abdominal Pain (pt denies) and Bloated
Physical Exam
-
General: Well Developed, Well Nourished, No Apparent Distress and Morbidly Obese
HEENT: Normocephalic, Atraumatic and Moist Mucous Membranes
Respiratory: Clear to Auscultation; Negative Wheezes, Rales or Rhonchi
Cardiac: Regular Rhythm and S1/S2
GI: Soft, Nontender, Normal Bowel Sounds and Distended
Musculoskeletal: No Clubbing, No Cyanosis, Edema, Right Lower Extrem (2+) and Other (left AKA)
Neuro: Awake, Alert and Oriented
[2024-10-16 12:11] LABS: Glucose - Point of Care 404 mg/dl (70-99)
[2024-10-16 13:10] LABS: Glucose 379 mg/dl (70-99)
[2024-10-16 14:50] LABS: Hepatitis B Core Ab, IgM Negative (Negative)
[2024-10-16 15:19] LABS: Hepatitis B Core Ab, Total Negative (Negative)
[2024-10-16 15:25] VITALS: BP 116/48
[2024-10-16 15:54] VITALS: BP 116/48
--- NOTE | 2024-10-16 16:00 | CM ---
Reviewed the chart notes and spoke with the patient at the bedside. IMM reviewed. The patient anticipates being discharged back to home with no additional needs. Patient has his wheelchair here and said he will have transportation home when
discharged. CM continues to be available to patient/family and is monitoring medical plan for needs at discharge.
Plan: Discharge to home when medically stable. Patient declined offer of VN services.
[2024-10-16] MEDS: HEPARIN SC ×2 (16:08→23:03)
[2024-10-16 17:22] LABS: Glucose - Point of Care 577 mg/dl (70-99)
[2024-10-16 18:22] LABS: Glucose 386 mg/dl (70-99)
[2024-10-16] MEDS: VITAMIN B-12 1000 MCG PO (18:32)
[2024-10-16 19:51] LABS: Glucose - Point of Care 443 mg/dl (70-99)
[2024-10-16 20:36] LABS: Glucose 415 mg/dl (70-99)
[2024-10-16] MEDS: FLOMAX 0.8 MG PO (20:41)
[2024-10-16] MEDS: DILAUDID 8 MG PO (20:41)
[2024-10-16] MEDS: MIRALAX PO (20:42)
[2024-10-16] MEDS: NOVOLOG FLEXPEN 14 UNITS SC (21:14)
[2024-10-16 23:21] LABS: Glucose - Point of Care 343 mg/dl (70-99)
[2024-10-16 23:35] VITALS: BP 159/71
[2024-10-16] MEDS: NOVOLOG FLEXPEN 10 UNITS SC (23:35)
--- NOTE | 2024-10-16 23:37 | GLUCOSE ---
Accucheck at 2000 RR HI. Stat glucose done and result was 415. Order received from MAY to give 14 units novolog. Repeat accucheck 2 hours later 343. Discussed with MAY and due to continued elevated glucose pt med with 10 units novolog. Will
recheck in 2 hours.
[2024-10-17 01:36] LABS: Glucose - Point of Care 271 mg/dl (70-99)
[2024-10-17] MEDS: SYNTHROID 137 MCG PO (05:28)
[2024-10-17 05:48] VITALS: BMI 41.5
--- NOTE | 2024-10-17 07:21 | W.PN.UPDATE ---
Update Note
Progress Note Update
HS accucheck RR hi, venous lab draw glucose result 415. Ordered Novolog 14 units SC x 1. Repeat accucheck @ 2 hours, result 343. Ordered additional Novolog�10 units SC x 1.
Repeat accucheck @ 2 hours 271
[2024-10-17 07:25] VITALS: BP 140/68
[2024-10-17 07:32] LABS: Glucose - Point of Care 225 mg/dl (70-99)
[2024-10-17 07:38] LABS: Hematocrit 28.3 % (39.0-52.0); Hemoglobin 9.1 g/dL (13.0-18.0); Mean Corp Hgb Conc. 32.2 g/dL (33.0-37.0); Mean Corpuscular Hgb 30.1 pg (27.0-31.0); Mean Corpuscular Volume 93.7 fL (80.0-94.0); Mean Platelet Volume 10.2 fL (7.4-10.4); Platelet Count 132 10^3/uL (130-400); Red Blood Cell Count 3.02 10^6/uL (4.70-6.10); Red Cell Dist. Width 14.4 % (11.5-14.5); White Blood Cell Count 4.8 10^3/uL (4.8-10.8)
[2024-10-17 08:17] LABS: ALT (SGPT) 71 U/L (0-50); AST (SGOT) 46 U/L (17-59); Albumin 2.9 g/dl (3.5-5.0); Alkaline Phosphatase 872 U/L (38-126); Blood Urea Nitrogen 50 mg/dl (9-20); Calcium 8.9 mg/dl (8.4-10.2); Carbon Dioxide 28 mmol/L (22-30); Chloride 104 mmol/L (98-107); Estimated Creatinine Clearance 81 ml/min; Glucose 221 mg/dl (70-99); Magnesium 2.4 mg/dl (1.6-2.3); Potassium 4.9 mmol/L (3.5-5.1); Sodium 136 mmol/L (135-145); Total Bilirubin 1.5 mg/dl (0.2-1.3); Total Protein 5.9 g/dl (6.3-8.2); eGFR > 60.00
[2024-10-17] MEDS: NOVOLOG FLEXPEN-HIGH RESISTANCE 4 UNITS SC (08:49)
[2024-10-17] MEDS: LANTUS 0.6 UNITS SC (08:50)
[2024-10-17] MEDS: ROCALTROL 0.25 MCG PO (08:51)
[2024-10-17] MEDS: ASPIR LOW (ENTERIC COATED) 81 MG PO (08:51)
[2024-10-17] MEDS: ALDACTONE 12.5 MG PO (08:51)
[2024-10-17] MEDS: COLACE 100 MG PO (08:51)
[2024-10-17] MEDS: NEURONTIN 300 MG PO (08:51)
[2024-10-17] MEDS: THERAGRAN 1 TABLET PO (08:51)
[2024-10-17] MEDS: XIFAXAN 550 MG PO (08:51)
[2024-10-17] MEDS: HEPARIN 5000 UNITS SC (08:51)
[2024-10-17] MEDS: MAGNESIUM OXIDE 500 MG PO (08:51)
[2024-10-17] MEDS: BUMEX 2 MG PO (08:53)
[2024-10-17] MEDS: TOPROL XL 75 MG PO (08:55)
[2024-10-17] MEDS: CARDIZEM CD 180 MG PO (08:55)
--- NOTE | 2024-10-17 11:23 | W.PN.HOSP.TC ---
Today's Communication/Plan
-
dc to home at [facility]
Assessment / Plan
Assessment / Plan
#Transaminitis
#History of alcohol cirrhosis
#Suspected decompensated cirrhosis
#Suspected Portal Hypertension
-F/u MRCP, MRI abdomen contrast: 1. SEVERE HEPATIC CIRRHOSIS.
2. PORTAL HYPERTENSION with MODERATE SPLENOMEGALY and gastrosplenic varices in the left upper quadrant of the abdomen.
3. CHOLEDOCHOLITHIASIS in the distal common bile duct causing a partial bile duct obstruction.
4. Cholelithiasis, gallbladder distention, and diffuse gallbladder wall thickening.
5. Small volume ascites.
6. Mild to moderate chronic bilateral renal disease.
7. MULTIPLE PANCREATIC CYSTS measuring up to 2.9 cm in size.
8. Moderate cardiomegaly.
9. Previous extensive bilateral posterior thoracolumbar instrumentation, previous laminectomies at T12 and L1, and osseous fusion across the T12/L1 intervertebral disc.
� Concern for possible mass in head of pancreas, as per Dr. Franco
� EUS and ERCP 10/15
ERCP: - A large amount of food (residue) in the stomach.
- Retained food in the duodenum.
- The major papilla appeared normal.
- A filling defect consistent with a stone was seen on
the cholangiogram.
- The common bile duct was mildly dilated.
- Choledocholithiasis was found. Likely removal was
accomplished (stone was not visualized due to large
food bezoar) by biliary sphincterotomy and balloon
extraction.
- A biliary sphincterotomy was performed.
- The biliary tree was swept.
- One plastic stent was placed into the ventral
pancreatic duct.
EUS: - A large amount of food (residue) in the stomach.
- Portal hypertensive gastropathy.
- A cystic lesion was seen in the pancreatic body.
Fine needle aspiration performed. Fine needle
aspiration for fluid performed.
- A cystic lesion was seen in the pancreatic tail.
- Main pancreatic duct (MPD) diameter was measured.
Endosonographically, the MPD had a dilated appearance.
- Pancreatic parenchymal abnormalities consisting of
hyperechoic strands, hyperechoic foci and lobularity
were noted in the pancreatic head and pancreatic body.
- One stone was visualized endosonographically in the
common bile duct.
- There was dilation in the common bile duct which
measured up to 8 mm.
- There was no sign of significant pathology in the
ampulla.
� Patient is nontender, afebrile, can hold on antibiotics at this time unless becomes hemodynamically unstable or spikes temperature
� GI input appreciated
�Continue Xifaxan
He is planning to switch GI care to GI. Discussed with Adri Luis, the office will reach out to pt to set up sooner appt. Will also follow up with Dr. Garrett 12/07 and that appt is set up
#Ascites
-not enough for tapping
-nontender
-ctm
� Resume diuresis; not on Aldactone � may be a good option due to persistent hypokalemia; Started aldactone 10/14;
� In no acute respiratory distress
-See plan above
# WALDO on CKD stage IIIa, resolved
� Baseline 1.5-1.6--->Creat now 1.2
� resumed Bumex/Aldactone and monitor
� improving
#Hypokalemia, in the setting of potassium wasting diuretic
resolved K now 5.0-->4.9
-will stop standing KCl dose as pt is on Aldactone
-replete as needed
�magnesium wnl
-restart bumex and monitor; started on low dose aldactone; monitor
-cards wanted metolazone although with severe hypokalemia - will avoid now
K was 2.7 on admission
#Diabetes type 2
-a1c 7.7%
� Lantus
� Sliding scale
glu 10/15 morning 242
Pt receives Lantus in morning, he was NPO, was given 1/2 usual dos of Lantus yesterday morning to avoid hypoglycemia during procedures and resumed usual 60 units today.
#Presumed Chronic HFpEF
� Resume bumex and monitor
-started Aldactone
-added metolazone outpt cardiology for diuresis although holding in setting of severe hypokalemia;
#Pancreatic cystic lesions
-measuring up to 2.0 cm: possibly pseudocysts or side branch intraductal papillary mucinous neoplasms.
-F/u ERCP
PSVT
- continue metoprolol, CCB
-He reports he was asymptomatic with elevated heart rate yesterday
Lymphedema, chronic, he would benefit from lymphedema therapy
-ALLYSON wrap
#Hypothyroidism
� Continue Synthroid
#Hyperlipidemia
�hold statin
� Continue aspirin
#Anemia chronic disease
� Monitor
#Chronic pain syndrome
-Will continue with home medication regimen for analgesia
#S/p PPM
-Patient unsure medication sounds like SSS/tachybradycardia syndrome
-Scar is well-healed, no signs of dysfunction with
#Morbid obesity
#DVT ppx
-HSQ
dc to home
complex dcMore than 30 minutes spent in discharge including
Final examination of the patient
Summarizing hospital stay
Instructions for continuing care to all relevant caregivers
Preparation of discharge records, prescriptions, and referral forms
Total time spent (in minutes): 45
Anticipated Discharge: Today
Subjective/Interval History
-
Date of Service: October 17, 2024
In good spirits, looking forward to dc to home
Objective Data
-
Labs:
Laboratory Results
10/17/24
06:10
WBC 4.8
Hgb 9.1 L
Hct 28.3 L
Plt Count 132
Sodium 136
Potassium 4.9
Chloride 104
Carbon Dioxide 28
BUN 50 H
Creatinine 1.2
Glucose 221 H
Calcium 8.9
Total Bilirubin 1.5 H
AST 46
ALT 71 H
Alkaline Phosphatase 872 H
Vital Signs:
Vital Signs
Temp Pulse Resp BP Pulse Ox
98.5 F 62 17 140/68 98
10/17/24 07:25 10/17/24 08:55 10/17/24 07:25 10/17/24 08:55 10/17/24 07:25
I&O
10/16/24 10/17/24 10/18/24
06:59 06:59 06:59
Intake Total 1080 / 1080 1440 / 1440
Output Total 1375 / 1375 2700 / 2700
Balance -295 / -295 -1260 / -1260
Review of Systems
-
History Source: Patient and Coordinated Provider
Constitutional: Denies Fever
EENT: Reports No Symptoms Reported
Respiratory: Reports No Symptoms
Cardiac: Reports No Symptoms
Abdomen/GI: Reports Bloated; Denies Abdominal Pain (pt denies)
Physical Exam
-
General: Well Developed, Well Nourished, No Apparent Distress and Morbidly Obese
HEENT: Normocephalic, Atraumatic and Moist Mucous Membranes
Respiratory: Clear to Auscultation; Negative Wheezes, Rales or Rhonchi
Cardiac: Regular Rhythm and S1/S2
GI: Soft, Nontender, Normal Bowel Sounds and Distended
Musculoskeletal: No Clubbing, No Cyanosis, Edema, Right Lower Extrem (2+) and Other (left AKA)
Neuro: Awake, Alert and Oriented
--- NOTE | 2024-10-17 11:32 | CM ---
Addendum entered by Marianne Rivera RN 10/17/24 11:38:
Consult for VN received. CM spoke with the patient regarding VN services. Patient not interested. Patient feels he does not need at this time.
Original Note:
Reviewed the chart notes. The patient anticipates being discharged back to home with no additional needs. Patient has his wheelchair here and said he will have transportation home when discharged. CM continues to be available to patient/family
and is monitoring medical plan for needs at discharge.
Plan: Discharge to home when medically stable.
--- NOTE | 2024-10-17 11:41 | W.DS.TRANS ---
DC Summary - [facility]
-
Discharge Instructions:
Sleep Apnea Risk High
Discharge Diagnosis/Procedures GI Upper Endoscopy with Biopsy
Diet Diabetic, Carb Controlled
Activity With assistance
Driving Restrictions No driving
Bathing Restrictions None
Blood Work CBC, CMP in 7-10 days
Others Tests obtain follow up X ray in 2 week to make sure
stent has passed see slip on chart for X ray
Other Services VN
Instructions:
Stand-Alone Forms:
Changes to Home Medications: Yes
Discharge Medications:
DC Medications w/original date entered in [employer]
aspirin 81 mg tablet,delayed release 81 mg PO DAILY Blood clot prevention/tx 09/25/19
atorvastatin 40 mg tablet 40 mg PO HS High cholesterol 09/25/19
calcitriol 0.25 mcg capsule 0.25 mcg PO DAILY Kidney Disease 09/25/19
insulin degludec 200 unit/mL (3 mL) subcutaneous pen (Tresiba FlexTouch U-200 insulin) 60 unit SC DAILY Diabetes 09/20/22
magnesium oxide 500 mg PO DAILY Supplement 05/05/23
qgkcdolj-if-seqdn 300 mcg-K 60 mcg-lycop 600 mcg-lutein 300 mcg tablet (Centrum Silver Men) 1 tab PO DAILY Supplement 07/22/23
rifaximin 550 mg tablet (Xifaxan) 550 mg PO BID Liver Issues 08/18/23
cyanocobalamin (vitamin B-12) 1,000 mcg tablet 1,000 mcg PO QPM Supplement 09/02/23
gabapentin 300 mg capsule 300 mg PO BID Neurological Condition 09/02/23
levothyroxine 137 mcg tablet 137 mcg PO DAILY@0700 Thyroid 09/02/23
empagliflozin 10 mg tablet (Jardiance) 10 mg PO DAILY CHF 1 month #30 tabs 02/26/24
tamsulosin 0.4 mg capsule 0.8 mg (2 x 0.4 mg) PO HS prostate #30 caps 03/03/24
hydromorphone 8 mg tablet 8 mg PO TIDPRN PRN severe pain 08/06/24
insulin aspart U-100 100 unit/mL (3 mL) subcutaneous pen (Novolog FlexPen U-100 Insulin aspart) 0 sliding scale dose SC AC Diabetes 08/06/24
diltiazem HCl 180 mg capsule,extended release 24 hr 180 mg PO DAILY #30 caps 08/11/24
bumetanide 1 mg tablet 2 mg PO DAILY Fluid Retention/Swelling 10/09/24
metoprolol succinate 50 mg tablet,extended release 24 hr 75 mg PO BID Blood Pressure 10/09/24
polyethylene glycol 3350 17 gram oral powder packet 17 g PO DAILYPRN PRN constipation 10/09/24
tirzepatide 5 mg/0.5 mL subcutaneous pen injector (Mounjaro) 5 mg SC VEGA Diabetes 10/09/24
spironolactone 25 mg tablet 12.5 mg (1/2 x 25 mg) PO DAILY #30 tabs 10/17/24
Home Medication Changes
stop Metolazone
stop KCL
start Aldactone 12.5 mg daily
Pending Results: Yes
Additional Pending Results:
Biopsy results
[2024-10-17 12:14] LABS: Glucose - Point of Care 304 mg/dl (70-99)
[2024-10-17] MEDS: NOVOLOG FLEXPEN-HIGH RESISTANCE 10 UNITS SC (12:15)
[2024-10-17 13:36] VITALS: BP 133/71
== END 2024-10-17 14:23 | disposition home health service (06) | DRG 445 ==
LOC: 2 NORTH 18:15
PROVIDERS: Emergency Medicine; Internal Medicine Gastroenterology; Nurse Practitioner Adult Health; Nurse Practitioner Family; Physician Assistant Medical; ADMITTING PHYSICIAN Internal Medicine; ATTENDING PHYSICIAN Internal Medicine; CONSULT PHYSICIAN Internal Medicine Gastroenterology; EMERGENCY PHYSICIAN Emergency Medicine; FAMILY PHYSICIAN Family Medicine
PROC: 0FC98ZZ Extirpation of Matter from Common Bile Duct, Via Natural or Artificial Opening Endoscopic (ICD-10-PCS; 2024-10-15)
PROC: 0F7D8DZ Dilation of Pancreatic Duct with Intraluminal Device, Via Natural or Artificial Opening Endoscopic (ICD-10-PCS; 2024-10-15)
DX: K80.50 Calculus of bile duct without cholangitis or cholecystitis without obstruction (principal); I13.0 Hypertensive heart and chronic kidney disease with heart failure and stage 1 through stage 4 chronic kidney disease, or unspecified chronic kidney disease; N17.9 Acute kidney failure, unspecified; Z68.41 Body mass index [BMI] 40.0-44.9, adult; I50.32 Chronic diastolic (congestive) heart failure; I48.92 Unspecified atrial flutter; N18.31 Chronic kidney disease, stage 3a; E87.6 Hypokalemia; E66.01 Morbid (severe) obesity due to excess calories; I48.0 Paroxysmal atrial fibrillation
CPT/HCPCS: 88173; 88305; 74176; 74183; 74330; 76000; 76700; 80048; 80053; 81003; 82105; 82248; 82784; 82947; 82962; 82977; 83036; 83516; 83690; 83735; 84100; 85025; 85027; 85610; 85730; 86038; 86376; 86381; 86704; 86705; 86706; 86708; 86803; 87070; 87340; 93005; 96374; 99285; A9575; C1769; C2617

== ENCOUNTER 2024-12-08 13:48 | Inpatient (IN) | payer OTHER, SELFPAY ==
[2024-12-08] VITALS (12 sets, daily range): BP systolic 118–165; BP diastolic 53–94; BMI 46.7; BMI 46.2
--- NOTE | 2024-12-08 08:44 | ED.GENMED ---
History of Present Illness
General
Chief Complaint: Breathing Problem
Source: patient and ambulance crew
Exam Limitations: none
Time Seen by Provider: 12/08/24 08:43
Nursing documentation reviewed up to this point in time: agreed with
History of Present Illness
History of Present Illness:
64-year-old male with history of neuropathy, CHF, paroxysmal SVT, a flutter, PAD, , HTN, HLD, pacemaker, alcoholic liver cirrhosis, IDDM, lower extremities lymphedema, anemia, left BKA 2019 presents for 3 days of 'fluid buildup,' legs more swollen,
shortness of breath and pressure mid chest. EMS reports his pulse ox was 89% to put him on 2 L nasal cannula and it came right up to 100%.
Past History
Past History
ED Past Medical History: Arrthythmia, CHF, HTN, Hypercholesterolemia, IDDM and Other (Kidney disease, cirrhosis, bilateral lower extremity lymphedema)
ED Past Surgical History: Cardiac (Pacemaker) and Orthopedic (Left BKA)
Social History
Tobacco: Non-smoker
Alcohol: None
Drug: None
Personal: Single
Living: other (Lives in the [facility] with others)
Employment: Employed ([employer]er)
Family History
Family History: Other (Left AKA)
Review of Systems
Review of Systems
Allergies reviewed?: Yes
All Other Systems: ROS reviewed and negative except as documented in HPI and ROS
Constitutional: Denies fever
Respiratory: Reports other (Shortness of breath)
Cardiac: Reports chest pain; Denies diaphoresis or syncope
ABD/GI: Denies abdominal pain, nausea, vomiting or diarrhea
Musculoskeletal: Reports other (Bilateral lower extremity lymphedema)
Phy Exam
Physical Exam
Physical Exam:
GENERAL: No acute distress. A&Ox3. Morbidly obese
CONSTITUTIONAL: Afebrile.
EYES: clear, conjunctivae normal
ENMT: moist mucus membranes, Pharynx nl
RESPIRATORY: Regular respirations, nonlabored, lungs clear.
CARDIOVASCULAR: Regular rate and rhythm, no murmurs, no rubs.
GI: Soft, nontender, normal BS
MUSCULOSKELETAL: Significant bilateral lower extremity lymphedema. Left BKA. Well perfused.
SKIN: Warm, dry, pink. Hypertropic skin changes LE's.
PSYCH: Normal mood and affect. Well kept, interactive and appropriate
NEUROLOGIC: Awake, alert and oriented. No focal neurological deficits
Scores
Heart Failure Risk
Heart Failure Risk Score: Not Applicable
Course
Orders/Labs/Results
Orders:
Orders
12/08/24 08:43
Electrocardiogram (*1) Urgent
Reason for Study: Chest Pain
EKG- Treatment ONCE
12/08/24 08:44
CR Chest - 2 Views Urgent
Comment:
Reason For Exam: chest pain,SOB
12/08/24 08:51
Complete Blood Count/With Diff Urgent
Comprehensive Metabolic Panel Urgent
Lipase Urgent
Comment: ADDED
NT-proBNP Urgent
Troponin I Urgent
12/08/24 Lunch
1800 calorie (15 carb) Diabetic
At Your Request: Full Participation
12/08/24 10:04
Bladder Scan- Treatment ONCE
12/08/24 10:21
Furosemide [Lasix] 60 mg IV NOW STA
12/08/24 11:36
Straight cath- Treatment ONCE
12/08/24 13:14
Admit/Transfer Patient As Directed
Co-Sign Provider:
Level of Care: Inpatient admission
Assign to:: Telemetry
Physician / Group: Sarabjit
Diagnosis: decompensated cirrrhosis
Reason for Telemetry: Arrhythmia
Date to Stop Telemetry: 12/11/24
Time to Stop Telemetry: 11:00
Reason for Hospitalization: decompensated cirrhosis
Expected length of stay greater than two midnights?: Yes
ELOS- Estimated Length of Stay in days: 3
I certify the patient meets the requirements for IP care: Yes
12/08/24 13:16
PRN Pain Medication Management As Directed
May give lesser potent ordered pain med per pt: Yes
preference::
Protocol:: Medication orders for pain may be administered in a
manner that supports deferring to patient preference
when the pt is:
- Requesting an ordered lesser potent pain medication.
Least to most potent pain medications are defined
as: acetaminophen < NSAID < tramadol < opioids
(morphine, oxycodone, hydromorphone).
- Requesting a lesser dose of the same medication IF
ORDERED.
- Requesting a less intrusive route of administration
if both routes are prescribed by the provider (PO <
IV).
12/08/24 13:20
Code Status As Directed
Resuscitation Status: Full Code
12/08/24 13:31
Add On- LAB Routine
Tests Added?: lipase
12/08/24 15:30
Polyethylene Glycol Powder [Miralax] 17 grams PO DAILYPRN PRN
hydromorphone 8 mg PO TIDPRN PRN
12/08/24 15:30
CT Angio Abdomen W/Wo Iv Contrast [CT Abdomen Angio W/wo Iv Contr] Routine
Comment:
Reason For Exam: ascites, hx pancreatic malignancy
PT/INR [Prothrombin Time] Routine
PTT Routine
Accucheck [Bedside Glucose Monitoring] As Directed
Frequency: AC&HS
Activity As Directed
Activity Level: As Tolerated
Bladder Scan As Directed
Follow Bladder Retention/Intermittent Cath Algorithm?: Yes
PRN if no void in __ hours: 6
Frequency: Per Retention Algorithm
If Bladder Scan Result >: 400
then:: Straight cath
I&O [Intake/ Output] As Directed
Frequency: q12h
Pneumatic Compression Sleeves As Directed
Type: Knee high
Straight Cath As Directed
Frequency: Per Retention Algorithm
Additional Instructions: straight cath as needed per acute urinary retention algorithm for 24 hrs
Additional Instructions: for bladder scan greater than 400 mL
Weight As Directed
Frequency: Daily
OT Consult [Ot Eval And Treat] Routine
Pt Eval And Treat Routine
Activity Level: As Tolerated
DX Deep Vein Thrombosis Video Routine
12/08/24 16:30
Insulin Aspart Pen [Novolog Flexpen] DOSE units SC AC
12/08/24 18:00
Cyanocobalamin [Vitamin B-12] 1,000 mcg PO QPM
12/08/24 20:00
Gabapentin [Neurontin] 300 mg PO BID
Metoprolol Xl [Toprol Xl] 75 mg PO BID
Rifaximin [Xifaxan] 550 mg PO BID
12/08/24 22:00
Atorvastatin [Lipitor] 40 mg PO HS
Tamsulosin [Flomax] 0.8 mg PO HS
12/09/24 06:00
CBC/No Diff [Complete Blood Count/No Diff] IN AM
CMP [Comprehensive Metabolic Panel] IN AM
Magnesium IN AM
12/09/24 07:00
Levothyroxine [Synthroid] 137 mcg PO DAILY@0700
12/09/24 08:00
Aspirin Low Dose EC [Aspir Low (Enteric Coated)] 81 mg PO DAILY
Bumetanide [Bumex] 2 mg PO DAILY
Calcitriol [Rocaltrol] 0.25 mcg PO DAILY
Diltiazem Extended Release [Cardizem Cd] 180 mg PO DAILY
Spironolactone [Aldactone] 12.5 mg PO DAILY
empagliflozin [Jardiance] 10 mg PO DAILY
insulin degludec [Tresiba FlexTouch U-200] 60 unit SC DAILY
12/10/24 06:00
CBC/No Diff [Complete Blood Count/No Diff] IN AM
CMP [Comprehensive Metabolic Panel] IN AM
Magnesium IN AM
12/11/24 06:00
CBC/No Diff [Complete Blood Count/No Diff] IN AM
CMP [Comprehensive Metabolic Panel] IN AM
Magnesium IN AM
12/11/24 11:00
DC Protocol for Telemetry ONCE
12/12/24 06:00
CBC/No Diff [Complete Blood Count/No Diff] IN AM
CMP [Comprehensive Metabolic Panel] IN AM
Magnesium IN AM
Abnormal Lab Results
12/08/24 12/08/24
08:47 08:51
RBC 3.25 L 10^6/uL
(4.70-6.10)
Hgb 9.5 L g/dL
(13.0-18.0)
Hct 29.7 L %
(39.0-52.0)
MCHC 32.0 L g/dL
(33.0-37.0)
RDW 15.6 H %
(11.5-14.5)
Plt Count 96 L 10^3/uL
(130-400)
Absolute Lymphs (auto) 0.7 L 10^3/uL
(1.2-3.4)
Lymphocytes % 15.3 L %
(20.5-51.1)
BUN 33 H mg/dl
(9-20)
Glucose 113 H mg/dl
(70-99)
Alkaline Phosphatase 178 H U/L
(38-126)
Lipase 21 L U/L
(23-300)
POC Glucose 119 H mg/dl
(70-99)
12/08/24 08:51
12/08/24 08:51
Vital Signs
Initial and Last Documented VS:
Initial Vital Signs
Pulse Resp Pulse Ox
71 15 95
12/08/24 08:50 12/08/24 08:50 12/08/24 08:50
Last Documented Vital Signs
Temp Pulse Resp BP Pulse Ox
97.7 F 68 18 130/62 99
12/08/24 15:00 12/08/24 15:00 12/08/24 15:00 12/08/24 15:00 12/08/24 15:00
Shell Maker Lockstitch consulted with Physician
Shell Maker Lockstitch consulted with physician?: Yes
Name of Physician Consulted: Noh
MDM/Problems Addressed
Differential Diagnosis Includes:
TX, CHF
MDM/Problems Addressed:
64-year-old male with history of neuropathy, CHF, paroxysmal SVT, a flutter, PAD,CKD, HTN, HLD, pacemaker, IDDM, alcoholic liver cirrhosis, lower extremities lymphedema, anemia, left BKA 2019 presents for 3 days of 'fluid buildup,' legs more
swollen, shortness of breath and pressure mid chest. EMS reports his pulse ox was 89% to put him on 2 L nasal cannula and it came right up to 100%.
EKG: Atrial paced rhythm with prolonged AV conduction, no significant change from previous
9:20 AM:
CBC unremarkable consistent with his baseline anemia
CMP: No clinically significant abnormality
Troponin WNL
BNP WNL
CXR: IMPRESSION:
Extremely low lung volumes.
Cardiomegaly, unchanged.
Pulmonary vascularity at least top normal, cannot exclude mild CHF versus acute pulmonary edema.
Although EMS reported a pulse ox of 89% and put him on 2 L nasal cannula, we removed the 2 L nasal cannula he has been on room air since arrival and his pulse ox is maintaining at 96%.
Results discussed with pt. He is concerned as he doesn't feel like he is urinating as much as he should. Denies feeling full or pain.
Post void Bladder scan:
10:20 AM:
64-year-old morbidly obese gentleman complaining of increasing shortness of breath, chest pressure, significant weight gain in the past 6 weeks on Bumex, chest x-ray showing possible mild CHF
Case discussed with Dr. Pelletier who agrees with admission to hospitalist
Hospitalist notified of admission
11:20 AM:
Patient is unable to urinate, bladder scan revealing 900 mL in bladder. Theodore catheter ordered. UA pending
*EKG
EKG Intrepretation Date: 12/08/24
Interpretation: abnormal
Heart Rate: 70
Rate: normal
Rhythm: other (Atrial paced)
Interval: normal interval
QRS Pattern: normal QRS
Ischemia: no ischemia
*Critical Care Note
Total Time (30-74mins, 75-104mins- exclusive of procedures): Not Applicable
ED Attending Note
-
Portions of this chart may have been created with voice recognition software.� Occasional wrong word or��sound alike� substitutions may have occurred due to the inherent limitations of voice recognition software.
Discharge Plan
Departure
Patient Disposition: Admit
Date of Disposition: 12/08/24
Time of Disposition: 10:20
Admit to: Med/Surg
Presentation/result/management discussed w/ accepting MD/DO: Hospitalist
Condition: Fair
Discharge Problem:
Fluid overload, Acute retention of urine
Interventions
Interventions:
*Risk Screen - Suicide Last Done: 12/08/24 08:53
*General Assessment Last Done: 12/08/24 08:53
*Neglect/Abuse Screening Last Done: 12/08/24 08:53
*ED- Fall Risk Assessment Last Done: 12/08/24 08:53
*ED COVID-19 Vaccine History Last Done: 12/08/24 08:53
*Nursing Disposition Last Done: 12/08/24 14:40
ED- Cardiac Assessment Last Done: 12/08/24 08:53
ED- Pulmonary Assessment Last Done: 12/08/24 08:53
Discharge Date and Time
Discharge Date/Time: 12/08/24 15:40
[2024-12-08 08:49] LABS: Glucose - Point of Care 119 mg/dl (70-99)
[2024-12-08 09:08] LABS: ALT (SGPT) 21 U/L (0-50); AST (SGOT) 30 U/L (17-59); Albumin 3.8 g/dl (3.5-5.0); Alkaline Phosphatase 178 U/L (38-126); Blood Urea Nitrogen 33 mg/dl (9-20); Calcium 8.8 mg/dl (8.4-10.2); Carbon Dioxide 30 mmol/L (22-30); Chloride 105 mmol/L (98-107); Glucose 113 mg/dl (70-99); Potassium 4.2 mmol/L (3.5-5.1); Sodium 141 mmol/L (135-145); Total Bilirubin 1.2 mg/dl (0.2-1.3); eGFR > 60.00
[2024-12-08 09:16] LABS: % Basophils 0.4 % (0-2); % Eosinophils 3.1 % (0-6); % Lymphocytes 15.3 % (20.5-51.1); % Monocytes 6.6 % (1.7-9.3); % Neutrophils 74.6 % (42.2-75.2); Absolute Eosinophils 0.2 10^3/uL (0-0.7); Absolute Lymphocytes 0.7 10^3/uL (1.2-3.4); Absolute Monocytes 0.3 10^3/uL (0.1-0.6); Absolute Neutrophils 3.6 10^3/uL (1.4-6.5); Hematocrit 29.7 % (39.0-52.0); Hemoglobin 9.5 g/dL (13.0-18.0); Mean Corpuscular Hgb 29.2 pg (27.0-31.0); Mean Corpuscular Volume 91.4 fL (80.0-94.0); Mean Platelet Volume 9.9 fL (7.4-10.4); Nucleated Red Blood Cells % 0 % (-); Red Cell Dist. Width 15.6 % (11.5-14.5); White Blood Cell Count 4.8 10^3/uL (4.8-10.8)
[2024-12-08 09:20] LABS: NT-proBNP 512 pg/ml; Troponin I < 0.012 ng/ml
[2024-12-08 09:50] LABS: Platelet Count 96 10^3/uL (130-400); Red Blood Cell Count 3.25 10^6/uL (4.70-6.10)
[2024-12-08] MEDS: LASIX 60 MG IV (11:02)
--- NOTE | 2024-12-08 11:51 | EDRN ---
the pt stated that he was short of breath, the pt is 94% on RA, this RN applied 3L NC and Sp02 is up to 96% and the pt states that his SOB is 'much better', the pt also stated that they were having a difficult time urinating, this RN notified the
provider Mariaa Paul CATEGORY SPECIALIST and bladder scanned the pt, per the providers orders this RN straight cathed the pt for retention
--- NOTE | 2024-12-08 11:58 | HPS.HSE ---
Addendum entered and electronically signed by Luciana Whipple MD 12/08/24 15:09:
I personally performed a history and physical exam of the patient and discussed management with the resident. I reviewed the resident's note and agree with the documented findings and plan of care HPI/CC.
GENERAL: well developed, well nourished, male in no apparent distress
HEENT: NC/AT O2 NC
HEART: regular rate and rhythm, +S1, +S2
LUNGS : clear to auscultation bilaterally
ABDOM: soft, nontender, nondistended, + bowel sounds
EXT: no cyanosis, clubbing--left leg with BKA and what appears to be fluid collection?/fluctuance on lateral side of stump--right leg with tense edema, chronic venous stasis changes with multiple 'nodules' on leg
NEUROLOGIC: grossly intact
SOB with acute hypoxemic resp insufficiency--on 2L O2--possible etiologies include exacerbation of HFpEF (but pro BNP is 512), Decompensated alcoholic liver cirrhosis, gradual weight gain from immobility--check CT scan ab/pelvis--cont diuresis--may
need paracentesis--consider GI consult--daily weights, I/Os--consider rechecking echo--trend troponin--consider cards--cont xifaxin--check coags
Urinary Retention secondary to BPH--had st cath--no duran placed at this time--cont flomax
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--consider need for cards eval--cont aldactone, metoprolol, bumex--daily weights, I/Os
anemia--Normocytic anemia with thrombocytopenia--likely from liver disease--follow
Paroxysmal SVT/Aflutter-- cont home diltiazem
type 2 IDDM--cont home insulin 60u degludec daily, 22ssi novolog-- cont home Jardiance
HTN/HLD- cont statin, metoprolol
Hypothyroidism- cont home levothyroxine
CKD stage 3a-- avoid nephrotoxic agents--consider renal consult
DVT proph-- SCDs
Code status--FULL CODE
Original Note:
Family Physician
-
Family Physician: Erasmo Calero, DO
Chief Complaint
-
'fluid buildup'
History of Present Illness
Pt is a 64yo M [facility] CHF, aflutter, paroxysmal SVT, PAD, HTN, HLD, IDDM, CKD stage IIIa, alcoholic liver cirrhosis, b/l LE lymphedema presented to [facility] ED on 12/08 for 'fluid buildup.' Pt reports his legs feel more swollen, he is more dyspneic, and has
a pressure midchest. Placed on 2L O2 via NC by EMS for SpO2 89%. Pt reports hx of pancreatic lesions concerning for cancer. Pt w urinary retention, duran placed & removed in ED.
Medical History
Past Medical History
Past Medical History: Reports Arrhythmia, CHF, HTN, Hypercholesterolemia, Hypothyroidism, IDDM and Other (Kidney disease, cirrhosis, bilateral lower extremity lymphedema)
Past Surgical History: Reports Cardiac (pacemaker) and Orthopedic (L BKA)
Social History
Tobacco: Non-smoker
Alcohol: None
Drug: None
Living: Other (Lives in the [facility] with others)
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
Family History
Family History: Not pertinent
Allergies / Home Medications
Allergies reflects when Allergies were last updated in [facility].
Home Medications with original date entered in [facility]
Allergy/Medication List:
Allergies
Allergy/AdvReac Type Severity Reaction Status Date / Time
No Known Allergies Allergy Verified 10/09/24 13:29
Home Medications
aspirin 81 mg tablet,delayed release 81 mg PO DAILY Blood clot prevention/tx 09/25/19
atorvastatin 40 mg tablet 40 mg PO HS High cholesterol 09/25/19
calcitriol 0.25 mcg capsule 0.25 mcg PO DAILY Kidney Disease 09/25/19
insulin degludec 200 unit/mL (3 mL) subcutaneous pen (Tresiba FlexTouch U-200 insulin) 60 unit SC DAILY Diabetes 09/20/22
magnesium oxide 500 mg PO DAILY Supplement 05/05/23
dnotiysv-kf-fpzcl 300 mcg-K 60 mcg-lycop 600 mcg-lutein 300 mcg tablet (Centrum Silver Men) 1 tab PO DAILY Supplement 07/22/23
rifaximin 550 mg tablet (Xifaxan) 550 mg PO BID Liver Issues 08/18/23
cyanocobalamin (vitamin B-12) 1,000 mcg tablet 1,000 mcg PO QPM Supplement 09/02/23
gabapentin 300 mg capsule 300 mg PO BID Neurological Condition 09/02/23
levothyroxine 137 mcg tablet 137 mcg PO DAILY@0700 Thyroid 09/02/23
empagliflozin 10 mg tablet (Jardiance) 10 mg PO DAILY CHF 1 month #30 tabs 02/26/24
tamsulosin 0.4 mg capsule 0.8 mg (2 x 0.4 mg) PO HS prostate #30 caps 03/03/24
hydromorphone 8 mg tablet 8 mg PO TIDPRN PRN severe pain 08/06/24
insulin aspart U-100 100 unit/mL (3 mL) subcutaneous pen (Novolog FlexPen U-100 Insulin aspart) 22 sliding scale dose SC AC Diabetes 08/06/24
diltiazem HCl 180 mg capsule,extended release 24 hr 180 mg PO DAILY #30 caps 08/11/24
bumetanide 1 mg tablet 2 mg PO DAILY Fluid Retention/Swelling 10/09/24
metoprolol succinate 50 mg tablet,extended release 24 hr 75 mg PO BID Blood Pressure 10/09/24
polyethylene glycol 3350 17 gram oral powder packet 17 g PO DAILYPRN PRN constipation 10/09/24
spironolactone 25 mg tablet 12.5 mg (1/2 x 25 mg) PO DAILY #30 tabs 10/17/24
Review of Systems
-
History Source: Patient
A 12 point ROS was completed and negative except as noted: Yes
Constitutional: Reports No Symptoms
EENT: Reports No Symptoms
Respiratory: Reports Trouble Breathing
Cardiac: Reports No Symptoms
Abdomen/GI: Reports No Symptoms
: Reports Difficulty Voiding
Musculoskeletal: Reports No Symptoms
Skin: Reports No Symptoms
Neurological: Reports No Symptoms
Endocrine: Reports No Symptoms
Hematologic/Lymphatic: Reports No Symptoms
Psych: Reports No Symptoms
Physical Exam
Vital Signs
Vital Signs
Temp Pulse Resp BP Pulse Ox
97.7 F 61 13 157/67 96
12/08/24 08:53 12/08/24 11:56 12/08/24 11:56 12/08/24 11:56 12/08/24 11:56
Physical Exam
General: Well Developed, Well Nourished and Conversant
HEENT: NormoCephalic, Atraumatic and Oxygen (3L O2 via NC)
Respiratory: Clear, Non Labored Respirations and Decreased Breath Sounds
Cardiac: S1/S2 and Regular Rhythm
GI: Non Tender, Normal Bowel Sounds and Distended
Musculoskeletal: No Clubbing, No Cyanosis, Edema, Left Upper Extremity, Edema, Right Upper Extremity, Edema, Left Lower Extremity, Edema, Right Lower Extremity and Other (L BKA)
Skin: Warm and Dry
Neuro: Awake, Alert and Oriented
Psych: Calm
Laboratory Results
-
12/08/24 08:51
12/08/24 08:51
Laboratory Results
Total Bilirubin 1.2 mg/dl (0.2-1.3) 12/08/24 08:51
AST 30 U/L (17-59) 12/08/24 08:51
ALT 21 U/L (0-50) 12/08/24 08:51
Alkaline Phosphatase 178 U/L (38-126) H 12/08/24 08:51
Troponin I < 0.012 ng/ml 12/08/24 08:51
Impression/Plan
-
IMPRESSION:
64yo M pmh HFpEF (EF 55-60%), aflutter, paroxysmal SVT, PAD, HTN, HLD, IDDM, CKD stage IIIa, alcoholic liver cirrhosis, b/l LE lymphedema presented to [facility] ED on 12/08 for 'fluid buildup.' Pt reports his legs feel more swollen, he is more dyspneic,
and has a pressure midchest.
PLAN:
Decompensated alcoholic liver cirrhosis
- follows w Dr. Garrett
- cont xifaxin
- CT abd/pelvis
- paracentesis if ascites is present
- I/O's
- daily weights
- PT/INR/PTT
Urinary Retention secondary to BPH
- duran placed and removed in ED
- cont home tamsulosin
- bladder scan w straight cath
Chronic HFpEF
- 08/07/24 echo: EF 55-60%
- follows w Dr. Blaise Mcfarland ([facility])
- CXR: Extremely low lung volumes. Cardiomegaly, unchanged. Pulmonary vascularity at least top normal, cannot exclude mild CHF versus acute pulmonary edema.
- proBNP wnl
- troponin undetectable
- keep Mg>2, K>4
- cont home spironolactone, metoprolol, bumex
Normocytic anemia
Thrombocytopenia
- monitor
- PT/INR/PTT
Aflutter
Paroxysmal SVT
- cont home diltiazem
- tele
IDDM
- cont home insulin 60u degludec daily, 22ssi novolog
- cont home jardiance
HTN/HLD
- cont statin, metoprolol
Hypothyroidism
- cont home levothyroxine
CKD stage 3a
- avoid nephrotoxic agents
- follows w Dr. Velazquez
Diet: diabetic
DVT ppx: SCDs
Code status: FULL CODE
--- NOTE | 2024-12-08 13:23 | CM ---
Patient seen at bedside in ED with physicians. Patient states that he lives at [facility] with the other Priests. Patient has had home health services from [facility] in the past. Patient PCP is Dr. Calero and he uses the [facility] on [address] Patient plan is for return to home with VN supports if needed. Patient has a wheelchair at home as well as an electric scooter. CM will continue to follow for discharge planning needs.
Plan;home with VN vs SNF pending medical treatment plan/therapy recommendations
[2024-12-08 14:03] LABS: Lipase 21 U/L (23-300)
--- NOTE | 2024-12-08 14:45 | EDRN ---
this RN called the receiving unit and notified them that paper report was going to be tubed up
--- NOTE | 2024-12-08 16:30 | PTCARENOTE ---
Received patient from ED, patient on 3L oxygen, aao x 3, appears relatively comfortable.
[2024-12-08 16:38] LABS: Glucose - Point of Care 148 mg/dl (70-99)
[2024-12-08 17:28] LABS: APTT 31.2 Sec (23.4-35.0); INR 1.24; PT 15.9 Sec (11.4-14.6)
[2024-12-08] MEDS: VITAMIN B-12 1000 MCG PO (18:02)
[2024-12-08] MEDS: TOPROL XL 75 MG PO (21:28)
[2024-12-08] MEDS: NEURONTIN 300 MG PO (21:28)
[2024-12-08] MEDS: XIFAXAN 550 MG PO (21:28)
[2024-12-08] MEDS: LIPITOR 40 MG PO (21:29)
[2024-12-08] MEDS: FLOMAX 0.8 MG PO (21:29)
[2024-12-08] MEDS: DILAUDID 8 MG PO (21:43)
[2024-12-08 22:10] LABS: Glucose - Point of Care 235 mg/dl (70-99)
[2024-12-09 03:24] VITALS: BP 120/56
[2024-12-09 06:00] VITALS: BMI 46.2
[2024-12-09 06:27] LABS: Hematocrit 27.3 % (39.0-52.0); Hemoglobin 8.6 g/dL (13.0-18.0); Mean Corp Hgb Conc. 31.5 g/dL (33.0-37.0); Mean Corpuscular Hgb 29.6 pg (27.0-31.0); Mean Corpuscular Volume 93.8 fL (80.0-94.0); Mean Platelet Volume 10.4 fL (7.4-10.4); Platelet Count 91 10^3/uL (130-400); Red Blood Cell Count 2.91 10^6/uL (4.70-6.10); Red Cell Dist. Width 15.7 % (11.5-14.5); White Blood Cell Count 3.6 10^3/uL (4.8-10.8)
[2024-12-09 06:47] LABS: ALT (SGPT) 21 U/L (0-50); AST (SGOT) 24 U/L (17-59); Albumin 3.4 g/dl (3.5-5.0); Alkaline Phosphatase 176 U/L (38-126); Blood Urea Nitrogen 33 mg/dl (9-20); Calcium 8.8 mg/dl (8.4-10.2); Carbon Dioxide 31 mmol/L (22-30); Chloride 106 mmol/L (98-107); Estimated Creatinine Clearance 78 ml/min; Glucose 280 mg/dl (70-99); Magnesium 2.5 mg/dl (1.6-2.3); Potassium 3.9 mmol/L (3.5-5.1); Sodium 143 mmol/L (135-145); Total Protein 6.3 g/dl (6.3-8.2); eGFR > 60.00
--- NOTE | 2024-12-09 07:12 | W.PN.HOSP.TC ---
Addendum entered and electronically signed by Luciana Whipple MD 12/09/24 15:03:
I saw and evaluated the patient independently. I reviewed the resident�s note and agree with findings and plan as documented by Dr. Blanco.
GENERAL: well developed, well nourished, male in no apparent distress
HEENT: NC/AT O2 NC
HEART: regular rate and rhythm, +S1, +S2
LUNGS : clear to auscultation bilaterally
ABDOM: soft, nontender, nondistended, + bowel sounds
EXT: no cyanosis, clubbing--left leg with BKA and what appears to be fluid collection?/fluctuance on lateral side of stump--right leg with tense edema, chronic venous stasis changes with multiple 'nodules' on leg
NEUROLOGIC: grossly intact
SOB with acute hypoxemic resp insufficiency--on 2L O2--possible etiologies include exacerbation of HFpEF (but pro BNP is 512), Decompensated alcoholic liver cirrhosis not likely as INR WNL, no ascites to tap, gradual weight gain from immobility?
ineffective meds and dose change needed?--consult renal and apprec input--cont diuresis--daily weights, I/Os--consider rechecking echo--trend troponin---cont xifaxin--may need right heart cath--metolazone added back, stopped last admission....
Urinary Retention secondary to BPH--had st cath--no duran placed at this time--cont flomax
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
anemia--Normocytic anemia with thrombocytopenia--likely from liver disease--follow
Paroxysmal SVT/Aflutter-- cont home diltiazem
type 2 IDDM--cont home insulin 60u degludec daily, 22ssi novolog-- cont home Jardiance
HTN/HLD- cont statin, metoprolol
Hypothyroidism- cont home levothyroxine
CKD stage 3a-- avoid nephrotoxic agents--apprec renal consult
DVT proph-- SCDs
Code status--FULL CODE
Original Note:
Today's Communication/Plan
-
- CT abd/pelvis
- diurese
Assessment / Plan
Assessment / Plan
IMPRESSION:
64yo M [facility] HFpEF (EF 55-60%), aflutter, paroxysmal SVT, PAD, HTN, HLD, IDDM, CKD stage IIIa, alcoholic liver cirrhosis, b/l LE lymphedema presented to [facility] ED on 12/08 for 'fluid buildup.' Pt reports his legs feel more swollen, he is more dyspneic,
and has a pressure midchest.
PLAN:
Dyspnea
- unlikely due to HFpEF exacerbation d/t proBNP 500
- unlikely due to decompensated cirrhosis d/t small volume ascites on CT abd/pelvis
- ? pneumonia vs atelectasis on CT abd/pelvis - less likely pna d/t absence of infectious signs/sx-- IS
- considering CTA chest to r/o PE, R heart cath to assess volume status
Alcoholic liver cirrhosis
- follows w Dr. Garrett
- cont xifaxin
- PT/INR/PTT wnl
Urinary Retention secondary to BPH
- duran placed and removed in ED
- cont home tamsulosin
- bladder scan w straight cath
Chronic HFpEF
- 08/07/24 echo: EF 55-60%
- follows w Dr. Blaise Mcfarland ([facility])
- CXR: Extremely low lung volumes. Cardiomegaly, unchanged. Pulmonary vascularity at least top normal, cannot exclude mild CHF versus acute pulmonary edema.
- proBNP wnl
- troponin undetectable
- keep Mg>2, K>4
- I/O's
- daily weights
- cont home spironolactone, metoprolol, bumex
Normocytic anemia
Thrombocytopenia
- monitor
- PT/INR/PTT wnl
Aflutter
Paroxysmal SVT
- cont home diltiazem
- tele
IDDM
- cont home insulin 60u degludec daily, 22ssi novolog
- cont home jardiance
HTN/HLD
- cont statin, metoprolol
Hypothyroidism
- cont home levothyroxine
CKD stage 3a
- avoid nephrotoxic agents
- follows w Dr. Velazquez
- appreciate nephrology input
Diet: diabetic
DVT ppx: SCDs
Code status: FULL CODE
Anticipated Discharge: > 48 hours
Subjective/Interval History
-
Date of Service: December 09, 2024
No acute overnight events. Pt feels more swollen in legs and abdomen.
Objective Data
-
Labs:
Laboratory Results
12/09/24
05:23
WBC 3.6 L
Hgb 8.6 L
Hct 27.3 L
Plt Count 91 L
Sodium 143
Potassium 3.9
Chloride 106
Carbon Dioxide 31 H
BUN 33 H
Creatinine 1.3
Glucose 280 H
Calcium 8.8
Total Bilirubin 1.0
AST 24
ALT 21
Alkaline Phosphatase 176 H
Vital Signs:
Vital Signs
Temp Pulse Resp BP Pulse Ox
97.7 F 62 18 120/56 98
12/09/24 03:24 12/09/24 03:24 12/09/24 03:24 12/09/24 03:24 12/09/24 03:24
I&O
12/08/24 12/09/24 12/10/24
06:59 06:59 06:59
Intake Total 960 / 960
Output Total 1775 / 1775
Balance -815 / -815
Review of Systems
-
History Source: Patient
Constitutional: Reports No Symptoms
Respiratory: Reports Trouble Breathing
Cardiac: Reports No Symptoms
Abdomen/GI: Reports No Symptoms
Genitourinary: Reports No Symptoms
Musculoskeletal: Reports Edema
Neuro: Reports No Symptoms
Physical Exam
-
General: Well Developed, Well Nourished, Conversant and Morbidly Obese
HEENT: Normocephalic, Atraumatic and Oxygen
Respiratory: Clear to Auscultation and Accessory Resp Muscle Use
Cardiac: Regular Rhythm and S1/S2
GI: Nontender, Normal Bowel Sounds and Distended
Musculoskeletal: No Clubbing, No Cyanosis, Edema, Right Upper Extrem, Edema, Left Upper Extrem, Edema, Right Lower Extrem and Edema, Left Lower Extrem
Skin: Warm and Dry
Neuro: Awake, Alert and Oriented
Psych: Calm
[2024-12-09 07:20] VITALS: BP 140/66
[2024-12-09 07:29] LABS: Glucose - Point of Care 257 mg/dl (70-99)
[2024-12-09] MEDS: SYNTHROID 137 MCG PO (07:33)
[2024-12-09] MEDS: ASPIR LOW (ENTERIC COATED) 81 MG PO (08:14)
[2024-12-09] MEDS: XIFAXAN 550 MG PO ×2 (08:14→20:21)
[2024-12-09] MEDS: NEURONTIN 300 MG PO ×2 (08:14→20:21)
[2024-12-09] MEDS: LANTUS 0.6 UNITS SC (08:14)
[2024-12-09] MEDS: BUMEX 2 MG PO (08:15)
[2024-12-09] MEDS: TOPROL XL 75 MG PO ×2 (08:16→20:21)
[2024-12-09] MEDS: CARDIZEM CD 180 MG PO (08:17)
[2024-12-09] MEDS: FARXIGA 10 MG PO (08:18)
[2024-12-09] MEDS: ROCALTROL 0.25 MCG PO (08:18)
[2024-12-09] MEDS: ALDACTONE 12.5 MG PO (08:18)
[2024-12-09] MEDS: NOVOLOG FLEXPEN-MODERATE RESISTANCE 5 UNITS SC ×3 (08:19→17:42)
[2024-12-09] MEDS: DILAUDID 8 MG PO (09:48)
[2024-12-09 11:07] VITALS: BP 141/64
[2024-12-09 12:05] LABS: Glucose - Point of Care 238 mg/dl (70-99)
--- NOTE | 2024-12-09 13:40 | W.CON.NEPH ---
Consultation
-
Date/Time Consultation Requested: 12/09/24 1233
Date/Time Consultation Performed: 12/09/24 1240
Requesting Provider: Luciana Lambert
Performing Provider: Rosio Ozuna
Reason for Consultation: CKD and hypervolemia
Medical History
-
Chief Complaint: sob
History of Present Illness:
64yo M pmh CHF, aflutter, paroxysmal SVT , PAD left BKA, HTN on Diltiazem, BB , HLD on statin, IDDM, CKD stage IIIa, alcoholic liver cirrhosis on Xifaxin, b/l LE lymphedema presented to [facility] ED on 12/08 for 'fluid buildup and sob.' The patient was
admitted in October for abnormal lab work and found to have a filling defect on ERCP from a stone, he underwent a sphincterotomy and balloon extraction with stent placement. He also had FNA done of the pancreatic lesion. during this admission due to
hyperkalemia metolazone was stopped and spironolactone was added. He Subsequently Saw GI 2 days ago and reportedly the FNA showed intraductal papillary mucinous Neoplasm. Since1-2 months patient started to gain weight about 20 pounds, increased
lower extra D edema. He follows with cardiology Dr. Mcfarland at [facility] [place] who recommended to take additional doses of Bumex for a few days which did not help the symptoms hence he presented to the hospital. He has baseline orthopnea. Reports
compliant with his diet and the medications, he follows fluid restriction of 48 ounces per day. Denies any dysuria with a known prior history of urinary retention from BPH. Denies any fever or coughing. He complains about abdominal girth is
increasing. Creatinine at 1.3, baseline. Chest x-ray with a low lung volumes and BNP is only elevated at 512. Nephrology consult at mainly to assess the volume status and need of diuretics with a CK D. He denies any abdominal pain or diarrhea or
constipation or nausea or vomiting. he is over 16kg from last admit.
Past Medical History
1. CKD stage 3 with baseline creatinine of 1.4.
2. Diastolic congestive heart failure.
3. Diabetes.
4. Anemia.
5. Left AKA.
6. Obesity.
7. Hypothyroidism.
8. Chronic right lower extremity lymphedema.
9. Cirrhosis.
10.BPH.
11.Hypothyroidism
Pancreatic lesion.
Past Surgical History: Cardiac (pacemaker) and Other (left bka)
Social History
Tobacco: Non-Smoker
Alcohol: None
Living: Other (Lives in the [facility] with others)
Family History
Family History: Not Pertinent
Allergies / Home Medications
Allergy/AdvReac Type Severity Reaction Status Date / Time
No Known Allergies Allergy Verified 10/09/24 13:29
�Medication �Instructions �Recorded �Confirmed �Type
aspirin 81 mg tablet,delayed 81 mg PO DAILY Blood clot 09/25/19 12/08/24 History
release prevention/tx
atorvastatin 40 mg tablet 40 mg PO HS High cholesterol 09/25/19 12/08/24 History
calcitriol 0.25 mcg capsule 0.25 mcg PO DAILY Kidney Disease 09/25/19 12/08/24 History
insulin degludec 200 unit/mL (3 60 unit SC DAILY Diabetes 09/20/22 12/08/24 History
mL) subcutaneous pen (Tresiba
FlexTouch U-200 insulin)
magnesium oxide 500 mg PO DAILY Supplement 05/05/23 12/08/24 History
xlhefmor-gd-hxlcr 300 mcg-K 60 1 tab PO DAILY Supplement 07/22/23 12/08/24 History
mcg-lycop 600 mcg-lutein 300 mcg
tablet (Centrum Silver Men)
rifaximin 550 mg tablet (Xifaxan) 550 mg PO BID Liver Issues 08/18/23 12/08/24 History
cyanocobalamin (vitamin B-12) 1,000 mcg PO QPM Supplement 09/02/23 12/08/24 History
1,000 mcg tablet
gabapentin 300 mg capsule 300 mg PO BID Neurological 09/02/23 12/08/24 History
Condition
levothyroxine 137 mcg tablet 137 mcg PO DAILY@0700 Thyroid 09/02/23 12/08/24 History
empagliflozin 10 mg tablet 10 mg PO DAILY CHF 1 month #30 tabs 02/26/24 12/08/24 Rx
(Jardiance)
tamsulosin 0.4 mg capsule 0.8 mg (2 x 0.4 mg) PO HS prostate 03/03/24 12/08/24 Rx
#30 caps
hydromorphone 8 mg tablet 8 mg PO TIDPRN PRN severe pain 08/06/24 12/08/24 History
insulin aspart U-100 100 unit/mL 22 sliding scale dose SC AC 08/06/24 12/08/24 History
(3 mL) subcutaneous pen (Novolog Diabetes
FlexPen U-100 Insulin aspart)
diltiazem HCl 180 mg 180 mg PO DAILY #30 caps 08/11/24 12/08/24 Rx
capsule,extended release 24 hr
bumetanide 1 mg tablet 2 mg PO DAILY Fluid 10/09/24 12/08/24 History
Retention/Swelling
metoprolol succinate 50 mg 75 mg PO BID Blood Pressure 10/09/24 12/08/24 History
tablet,extended release 24 hr
polyethylene glycol 3350 17 gram 17 g PO DAILYPRN PRN constipation 10/09/24 12/08/24 History
oral powder packet
spironolactone 25 mg tablet 12.5 mg (1/2 x 25 mg) PO DAILY #30 10/17/24 12/08/24 Rx
tabs
Review of Systems
-
All other systems: Negative unless noted
Physical Exam
Vital Signs
Vital Signs
Temp Pulse Resp BP Pulse Ox
98.0 F 64 20 141/64 95
12/09/24 11:07 12/09/24 11:07 12/09/24 11:07 12/09/24 11:07 12/09/24 11:07
Lab Results
WBC 3.6 10^3/uL (4.8-10.8) L 12/09/24 05:23
RBC 2.91 10^6/uL (4.70-6.10) L 12/09/24 05:23
Hgb 8.6 g/dL (13.0-18.0) L 12/09/24 05:23
Hct 27.3 % (39.0-52.0) L 12/09/24 05:23
Plt Count 91 10^3/uL (130-400) L 12/09/24 05:23
Sodium 143 mmol/L (135-145) 12/09/24 05:23
Potassium 3.9 mmol/L (3.5-5.1) 12/09/24 05:23
Chloride 106 mmol/L (98-107) 12/09/24 05:23
Carbon Dioxide 31 mmol/L (22-30) H 12/09/24 05:23
BUN 33 mg/dl (9-20) H 12/09/24 05:23
Creatinine 1.3 mg/dL (0.7-1.3) 12/09/24 05:23
eGFR > 60.00 12/09/24 05:23
Glucose 280 mg/dl (70-99) H 12/09/24 05:23
Calcium 8.8 mg/dl (8.4-10.2) 12/09/24 05:23
Nto-K-Gyhjhdaavkj Pept 512 pg/ml 12/08/24 08:51
Albumin 3.4 g/dl (3.5-5.0) L 12/09/24 05:23
Physical Exam
General: Awake, Alert, Oriented, AOx3, No Distress and Nontoxic
HEENT: Anicteric, Conjunctivae Clear and Facial Symmetry
Respiratory: Normal Excursion, Nonlabored Respirations and Other (Decreased breath sounds)
Cardiac: S1/S2 and Regular Rate/Rhythm
Breast: Deferred by me
Abdomen: Soft, Nontender and Other ( distended)
Musculoskeletal: Edema ( right leg 3+, left amputation significantly edematous too)
Skin: No Rash and Other ( chronic skin changes in the lower extremities)
Neuro: Nonfocal/Grossly Intact
Psych: Appropriate
Data Reviewed
-
Radiology: Report Reviewed by me, Discussed with Physician and Discussed with Patient
Labs: Labs Reviewed by me, Discussed with Patient and Discussed with Family
Assessment/Plan
-
IMP:
possible HFpEF - acute on chronic
CKD 3a cr 1.2-1.4
Type II DM
ETOH Cirrhosis
Lymphedema
Obesity, BMI 46
Intraductal papillary mucinous neoplasm -pancreatic cyst
Anemia
Hypothyroidism
h/o Urinary retention-BPH
Severe PAD, S/P left AKA
HLD
PLan:
A/w sob, 20lbs gain in last 2months more so in last 1 week failed increased dose of diuretics out pt
16kg over from last admit
based on clinical symp suggest possible acute on chr CHFpEF though BNP not high at 512
would trial bumex 2mg BID IV (pt was taking 3mg/day [employer]), consider metolazone(was on it before, stopped in October admit)
if no improvement of symp may benefit from RHC
check leg duplex to r/o DVT as he c/o increased edema
CXR and CT results noted, low lung vol
follow bladder scan with prior h/o urine retention, cont high dose flomax
stable renal function at baseline, cont Farxiga
Bp stable on CCB, low dose Aldactone
d/w pt and primary
[2024-12-09] MEDS: BUMEX 2 MG IV ×2 (14:06→20:23)
[2024-12-09 15:14] VITALS: BP 145/64
[2024-12-09 16:42] LABS: Glucose - Point of Care 258 mg/dl (70-99)
[2024-12-09] MEDS: VITAMIN B-12 1000 MCG PO (17:42)
[2024-12-09 19:13] VITALS: BP 138/61
[2024-12-09 21:42] LABS: Glucose - Point of Care 189 mg/dl (70-99)
[2024-12-09] MEDS: FLOMAX 0.8 MG PO (21:49)
[2024-12-09] MEDS: LIPITOR 40 MG PO (21:49)
[2024-12-09 23:22] VITALS: BP 140/57
[2024-12-10] VITALS (8 sets, daily range): BP systolic 129–161; BP diastolic 54–75; PULSE 62; O2SAT 95; BMI 45.8
[2024-12-10 06:40] LABS: ALT (SGPT) 20 U/L (0-50); AST (SGOT) 21 U/L (17-59); Albumin 3.5 g/dl (3.5-5.0); Alkaline Phosphatase 162 U/L (38-126); Blood Urea Nitrogen 35 mg/dl (9-20); Calcium 8.7 mg/dl (8.4-10.2); Carbon Dioxide 32 mmol/L (22-30); Chloride 106 mmol/L (98-107); Estimated Creatinine Clearance 85 ml/min; Glucose 176 mg/dl (70-99); Magnesium 2.2 mg/dl (1.6-2.3); Potassium 3.7 mmol/L (3.5-5.1); Sodium 143 mmol/L (135-145); Total Protein 6.4 g/dl (6.3-8.2); eGFR > 60.00
[2024-12-10 06:57] LABS: Hematocrit 26.6 % (39.0-52.0); Hemoglobin 8.6 g/dL (13.0-18.0); Mean Corp Hgb Conc. 32.3 g/dL (33.0-37.0); Mean Corpuscular Hgb 29.8 pg (27.0-31.0); Mean Platelet Volume 10.4 fL (7.4-10.4); Platelet Count 82 10^3/uL (130-400); Red Blood Cell Count 2.89 10^6/uL (4.70-6.10); Red Cell Dist. Width 15.3 % (11.5-14.5); White Blood Cell Count 4.8 10^3/uL (4.8-10.8)
--- NOTE | 2024-12-10 07:16 | W.PN.HOSP.TC ---
Addendum entered and electronically signed by Luciana Whipple MD 12/10/24 16:20:
I saw and evaluated the patient independently. I reviewed the resident�s note and agree with findings and plan as documented by Dr. Blanco.
GENERAL: well developed, well nourished, male in no apparent distress
HEENT: NC/AT O2 NC
HEART: regular rate and rhythm, +S1, +S2
LUNGS : clear to auscultation bilaterally
ABDOM: soft, nontender, nondistended, + bowel sounds
EXT: no cyanosis, clubbing--left leg with BKA and what appears to be fluid collection?/fluctuance on lateral side of stump--right leg with tense edema, chronic venous stasis changes with multiple 'nodules' on leg
NEUROLOGIC: grossly intact
SOB with acute hypoxemic resp insufficiency--on 2L O2--possible etiologies include exacerbation of HFpEF (but pro BNP is 512), Decompensated alcoholic liver cirrhosis not likely as INR WNL and no ascites to tap, gradual weight gain from immobility?
ineffective meds and dose change needed?--apprec renal--cont diuresis--daily weights, I/Os--consider rechecking echo--trend troponin---cont xifaxin--may need right heart cath--metolazone added back, stopped last admission....
Urinary Retention secondary to BPH--had st cath-- duran placed at this time--cont flomax
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
anemia--Normocytic anemia with thrombocytopenia--likely from liver disease--follow
Paroxysmal SVT/Aflutter-- cont home diltiazem
type 2 IDDM--cont home insulin 60u degludec daily, 22ssi novolog-- cont home Jardiance
HTN/HLD- cont statin, metoprolol
Hypothyroidism- cont home levothyroxine
CKD stage 3a-- avoid nephrotoxic agents--apprec renal consult
DVT proph-- SCDs
Code status--FULL CODE
Original Note:
Today's Communication/Plan
-
- abg
- pulm consult
Assessment / Plan
Assessment / Plan
IMPRESSION:
64yo M [facility] HFpEF (EF 55-60%), aflutter, paroxysmal SVT, PAD, HTN, HLD, IDDM, CKD stage IIIa, alcoholic liver cirrhosis, b/l LE lymphedema presented to [facility] ED on 12/08 for 'fluid buildup.' Pt reports his legs feel more swollen, he is more dyspneic,
and has a pressure midchest.
PLAN:
Dyspnea
Possible acute on chronic HFpEF exacerbation
- unlikely due to decompensated cirrhosis d/t small volume ascites on CT abd/pelvis
- ? pneumonia vs atelectasis on CT abd/pelvis - less likely pna d/t absence of infectious signs/sx-- IS
- considering CTA chest to r/o PE, R heart cath to assess volume status
- LE doppler: Examination is technically difficult and significantly limited with severe edema bilaterally. As described above, no evidence of deep venous thrombosis within the visualized veins, but a limited examination.
- 08/07/24 echo: EF 55-60%
- follows w Dr. Blaise Mcfarland ([facility])
- CXR: Extremely low lung volumes. Cardiomegaly, unchanged. Pulmonary vascularity at least top normal, cannot exclude mild CHF versus acute pulmonary edema.
- proBNP wnl
- troponin undetectable
- keep Mg>2, K>4
- I/O's
- daily weights
- bumex 2g BID
- cont home spironolactone, metoprolol
- appreciate pulmonary input - abg pending
Alcoholic liver cirrhosis
- follows w Dr. Garrett
- cont xifaxin
- PT/INR/PTT wnl
Urinary Retention secondary to BPH
- duran placed and removed in ED
- cont home tamsulosin
- bladder scan w straight cath
- place duran
Normocytic anemia
Thrombocytopenia
- monitor
- PT/INR/PTT wnl
Aflutter
Paroxysmal SVT
- cont home diltiazem
- tele
IDDM
- cont home insulin 60u degludec daily, 22ssi novolog
- cont home jardiance
HTN/HLD
- cont statin, metoprolol
Hypothyroidism
- cont home levothyroxine
CKD stage 3a
- avoid nephrotoxic agents
- follows w Dr. Velazquez
- appreciate nephrology input
Diet: diabetic
DVT ppx: SCDs
Code status: FULL CODE
Anticipated Discharge: > 48 hours
Subjective/Interval History
-
Date of Service: December 10, 2024
No acute overnight events. Dyspnea has not improved. Pt reports feeling pressure in his bladder. Scanned for 803 mL. 1L drained via straight cath
Objective Data
-
Labs:
Laboratory Results
12/10/24
05:42
WBC 4.8
Hgb 8.6 L
Hct 26.6 L
Plt Count 82 L
Sodium 143
Potassium 3.7
Chloride 106
Carbon Dioxide 32 H
BUN 35 H
Creatinine 1.2
Glucose 176 H
Calcium 8.7
Total Bilirubin 1.0
AST 21
ALT 20
Alkaline Phosphatase 162 H
Vital Signs:
Vital Signs
Temp Pulse Resp BP Pulse Ox
98.0 F 61 17 141/69 96
12/10/24 03:12 12/10/24 03:12 12/10/24 03:12 12/10/24 03:12 12/10/24 03:12
I&O
12/09/24 12/10/24 12/11/24
06:59 06:59 06:59
Intake Total 960 / 960 1740 / 1740
Output Total 1775 / 1775 3000 / 3000
Balance -815 / -815 -1260 / -1260
Review of Systems
-
History Source: Patient
Constitutional: Reports No Symptoms
Respiratory: Reports Trouble Breathing
Cardiac: Reports No Symptoms
Abdomen/GI: Reports No Symptoms
Genitourinary: Reports Difficulty Voiding
Musculoskeletal: Reports Edema
Neuro: Reports No Symptoms
Physical Exam
-
General: Well Developed, Well Nourished and Morbidly Obese
HEENT: Normocephalic and Atraumatic
Respiratory: Accessory Resp Muscle Use and Decreased Breath Sounds
Cardiac: Regular Rhythm and S1/S2
GI: Normal Bowel Sounds and Distended
Musculoskeletal: Edema, Right Upper Extrem, Edema, Left Upper Extrem, Edema, Right Lower Extrem and Edema, Left Lower Extrem
Skin: Warm
Neuro: Awake, Alert and Oriented
Psych: Calm
[2024-12-10 07:21] LABS: Glucose - Point of Care 199 mg/dl (70-99)
[2024-12-10] MEDS: SYNTHROID 137 MCG PO (07:55)
[2024-12-10] MEDS: FARXIGA 10 MG PO (07:55)
[2024-12-10] MEDS: CARDIZEM CD 180 MG PO (07:56)
[2024-12-10] MEDS: TOPROL XL 75 MG PO ×2 (07:56→20:47)
[2024-12-10] MEDS: ALDACTONE 12.5 MG PO (07:56)
[2024-12-10] MEDS: ASPIR LOW (ENTERIC COATED) 81 MG PO (07:56)
[2024-12-10] MEDS: NOVOLOG FLEXPEN-MODERATE RESISTANCE 1 UNITS SC (07:57)
[2024-12-10] MEDS: ROCALTROL 0.25 MCG PO (07:57)
[2024-12-10] MEDS: XIFAXAN 550 MG PO ×2 (07:57→20:47)
[2024-12-10] MEDS: LANTUS 0.6 UNITS SC (07:57)
[2024-12-10] MEDS: NEURONTIN 300 MG PO ×2 (07:57→20:47)
[2024-12-10] MEDS: KCL 40 MEQ PO ×2 (07:57→11:17)
[2024-12-10] MEDS: BUMEX 2 MG IV ×2 (07:58→20:52)
[2024-12-10 11:14] LABS: Glucose - Point of Care 318 mg/dl (70-99)
[2024-12-10] MEDS: NOVOLOG FLEXPEN-MODERATE RESISTANCE 7 UNITS SC (11:18)
--- NOTE | 2024-12-10 11:54 | W.PN.NEPH.PH ---
Today's Communication / Plan
-
cont bumex IV, consider adding metolazone
Assessment/Plan
-
IMP:
possible HFpEF - acute on chronic
CKD 3a cr 1.2-1.4
Type II DM
ETOH Cirrhosis
Lymphedema
Obesity, BMI 46
Intraductal papillary mucinous neoplasm -pancreatic cyst
Anemia
Hypothyroidism
h/o Urinary retention-BPH
Severe PAD, S/P left AKA
HLD
PLan:
A/w sob, 20lbs gain in last 2months more so in last 1 week failed increased dose of diuretics out pt
16kg over from last admit
based on clinical symp suggest possible acute on chr CHFpEF though BNP not high at 512
cont bumex 2mg BID IV (pt was taking 3mg/day [employer]), consider metolazone(was on it before, stopped in October admit)
if no improvement of symp may benefit from RHC
no DVT of leg with limited exam
follow bladder scan with prior h/o urine retention, SC as needed, cont high dose flomax
stable renal function at baseline, cont Farxiga
Bp stable on CCB, low dose Aldactone
d/w pt
-
-
Date of Service: December 10, 2024
CC / HPI / ROS
-
Chief Complaint:
CKD
History of Present Illness:
cr stable at 1.2
wt down slightly. non oliguric with diuretics
Bp stable
Review of Systems:
remains on O2, c/o sob no change
no cp
no n/v
Labs
-
Labs:
WBC 4.8 10^3/uL (4.8-10.8) 12/10/24 05:42
RBC 2.89 10^6/uL (4.70-6.10) L 12/10/24 05:42
Hgb 8.6 g/dL (13.0-18.0) L 12/10/24 05:42
Hct 26.6 % (39.0-52.0) L 12/10/24 05:42
Plt Count 82 10^3/uL (130-400) L 12/10/24 05:42
Sodium 143 mmol/L (135-145) 12/10/24 05:42
Potassium 3.7 mmol/L (3.5-5.1) 12/10/24 05:42
Chloride 106 mmol/L (98-107) 12/10/24 05:42
Carbon Dioxide 32 mmol/L (22-30) H 12/10/24 05:42
BUN 35 mg/dl (9-20) H 12/10/24 05:42
Creatinine 1.2 mg/dL (0.7-1.3) 12/10/24 05:42
eGFR > 60.00 12/10/24 05:42
Glucose 176 mg/dl (70-99) H 12/10/24 05:42
Calcium 8.7 mg/dl (8.4-10.2) 12/10/24 05:42
Kwn-F-Iowlnqrgcft Pept 512 pg/ml 12/08/24 08:51
Albumin 3.5 g/dl (3.5-5.0) 12/10/24 05:42
Physical Exam
-
Vital Signs:
Vital Signs
Temp Pulse Resp BP Pulse Ox
98.1 F 64 18 130/61 95
12/10/24 11:05 12/10/24 11:05 12/10/24 11:05 12/10/24 11:05 12/10/24 11:05
Cardiovascular:: Regular rate and rhythm
Respiratory:: Bilateral: CTA (decreased BS)
Lung Excursion:: Normal
Abdomen:: Nontender and Soft
Extremity Edema:: None: Right:
Theodore Catheter: No
Other Findings::
left bka-edematous stump
[2024-12-10 12:07] LABS: Venous Blood Gas B.E. 4.2 mmol/L (-4 to +4); Venous Blood Gas HCO3 29.2 mmol/L (22-27); Venous Blood Gas pCO2 44 mmHg (35-48); Venous Blood Gas pH 7.43 (7.32-7.43); Venous Blood Gas pO2 146 mmHg (30-50)
[2024-12-10 12:12] LABS: Venous Blood Gas O2 Sat % 99.3 %; Venous Blood Gas O2 Therapy 3l
[2024-12-10 16:13] LABS: Glucose - Point of Care 206 mg/dl (70-99)
--- NOTE | 2024-12-10 16:31 | CON.PUL ---
Consultation
Consultation Request
Date/Time Consultation Requested: 12/10/2024
Date/Time Consultation Performed: 12/10/2024
Requesting Provider: Luciana Whipple
Performing Provider: Michelle Paige
Reason for Consultation: Atelectasis, hypoxia
Medical History
-
Chief Complaint: Increasing edema, dyspnea/
History of Present Illness:
Patient is a very pleasant 64-year-old gentleman with history of paroxysmal SVT, hypertension, hyperlipidemia and chronic lymphedema along with history of liver cirrhosis who presents with worsening lower extremity swelling. Patient reports being
more short of breath, orthopneic as well as PND. He was noted to be around 89% on 2 L supplemental oxygen and was admitted to the hospitalist service for concern for heart failure exacerbation and anasarca. Imaging has suggested bilateral
atelectasis versus pneumonia. In view of hypoxia and atelectasis, pulmonary consultation was requested for further input.
Past Medical History
Past Medical History: Reports Arrhythmia, CHF, HTN, Hypercholesterolemia, Hypothyroidism, IDDM and Other (Kidney disease, cirrhosis, bilateral lower extremity lymphedema)
Past Surgical History: Reports Cardiac (pacemaker) and Orthopedic (L BKA)
Social History
Tobacco: Non-smoker
Alcohol: None
Drug: None
Living: Other (Lives in the [facility] with others)
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
Family History
Family History: Not pertinent
Allergies / Home Medications
Allergies / Home Medications
Allergies
Allergy/AdvReac Type Severity Reaction Status Date / Time
No Known Allergies Allergy Verified 10/09/24 13:29
Home Medications
�Medication �Instructions �Recorded �Confirmed �Last Taken �Type
aspirin 81 mg tablet,delayed 81 mg PO DAILY Blood clot 09/25/19 12/08/24 12/08/24 History
release prevention/tx
atorvastatin 40 mg tablet 40 mg PO HS High cholesterol 09/25/19 12/08/24 12/07/24 History
calcitriol 0.25 mcg capsule 0.25 mcg PO DAILY Kidney Disease 09/25/19 12/08/24 12/08/24 History
insulin degludec 200 unit/mL (3 60 unit SC DAILY Diabetes 09/20/22 12/08/24 10/09/24 09:00 History
mL) subcutaneous pen (Tresiba
FlexTouch U-200 insulin)
magnesium oxide 500 mg PO DAILY Supplement 05/05/23 12/08/24 12/08/24 History
cdvcjatm-tb-hqkvg 300 mcg-K 60 1 tab PO DAILY Supplement 07/22/23 12/08/24 12/08/24 History
mcg-lycop 600 mcg-lutein 300 mcg
tablet (Centrum Silver Men)
rifaximin 550 mg tablet (Xifaxan) 550 mg PO BID Liver Issues 08/18/23 12/08/24 12/08/24 History
cyanocobalamin (vitamin B-12) 1,000 mcg PO QPM Supplement 09/02/23 12/08/24 12/07/24 History
1,000 mcg tablet
gabapentin 300 mg capsule 300 mg PO BID Neurological 09/02/23 12/08/24 12/08/24 History
Condition
levothyroxine 137 mcg tablet 137 mcg PO DAILY@0700 Thyroid 09/02/23 12/08/24 12/08/24 History
empagliflozin 10 mg tablet 10 mg PO DAILY CHF 1 month #30 tabs 02/26/24 12/08/24 12/08/24 Rx
(Jardiance)
tamsulosin 0.4 mg capsule 0.8 mg (2 x 0.4 mg) PO HS prostate 03/03/24 12/08/24 12/07/24 Rx
#30 caps
hydromorphone 8 mg tablet 8 mg PO TIDPRN PRN severe pain 08/06/24 12/08/24 12/08/24 History
insulin aspart U-100 100 unit/mL 22 sliding scale dose SC AC 08/06/24 12/08/24 Unknown History
(3 mL) subcutaneous pen (Novolog Diabetes
FlexPen U-100 Insulin aspart)
diltiazem HCl 180 mg 180 mg PO DAILY #30 caps 08/11/24 12/08/24 12/08/24 Rx
capsule,extended release 24 hr
bumetanide 1 mg tablet 2 mg PO DAILY Fluid 10/09/24 12/08/24 12/08/24 History
Retention/Swelling
metoprolol succinate 50 mg 75 mg PO BID Blood Pressure 10/09/24 12/08/24 12/08/24 History
tablet,extended release 24 hr
polyethylene glycol 3350 17 gram 17 g PO DAILYPRN PRN constipation 10/09/24 12/08/24 Unknown History
oral powder packet
spironolactone 25 mg tablet 12.5 mg (1/2 x 25 mg) PO DAILY #30 10/17/24 12/08/24 12/08/24 Rx
tabs
Review of Systems
Vitals / Labs / Diagnostic Testing
Vital Signs
Temp Pulse Resp BP Pulse Ox
98.2 F 65 18 161/75 98
12/10/24 15:10 12/10/24 15:10 12/10/24 15:10 12/10/24 15:10 12/10/24 15:10
Lab Data
12/10/24 05:42
12/10/24 05:42
Laboratory Results
12/10/24
08:37
pH Cancelled
pCO2 Cancelled
pO2 Cancelled
HCO3 Cancelled
O2 Delivery Level Cancelled
Diagnostic Testing:
Physical Exam
-
HEENT: Normocephalic
Cardiovascular: S1/S2 and Peripheral Edema
Respiratory: Non-Labored Respirations and Other (No wheezing on exam. Bilateral inspiratory crackles posteriorly)
GI: Soft and Other (Obese abdomen)
Neurology: Awake, Alert and Oriented
Skin: Warm
General: Comfortable
Assessment
-
#1. Acute hypoxic respiratory failure.
- Responded well to supplemental oxygen, currently 96 to 98% on 3 L
- Etiology of hypoxia appears to be volume overload with pulmonary edema as well as significant bilateral atelectasis lower lobes.
- Patient is afebrile, has normal white count, no cough or expectoration, pneumonia is less likely
- Patient is morbidly obese, mostly bedbound, has underlying cirrhosis also along with significant anasarca, all of these things are contributing to poor ventilation and resultant atelectasis
- VBG is reassuring, 7.43, 44. No evidence of CO2 retention. No indication for CPAP or BiPAP therapy.
- Continue aggressive diuresis as you are doing with IV Bumex, Farxiga as well as Aldactone
- Incentive spirometry. I counseled patient regarding the use of it. He was only able to pull around 6 to 700 mL.
- Increase activity as tolerated, sit in chair as tolerated
- Patient does not have any cough or expectoration and no wheezing on exam. No indication for hypertonic saline, antibiotics or steroid therapy. Depending upon clinical course may consider vest therapy down the line
- Patient has never smoked. No prior history of COPD/asthma or emphysema. No wheezing on exam.
- ESS score is low. May consider sleep study as outpatient to evaluate for any sleep disordered breathing
#2. Acute on chronic heart failure with preserved ejection fraction.
- Patient has significant anasarca with volume overload.
- Cirrhosis is also contributing to volume overload. Albumin however is near normal at 3.5.
- Echocardiogram reviewed, right sided pulmonary artery pressure could not be assessed due to technical challenges. Right ventricular function and size appeared normal making significant pulmonary hypertension less likely.
- However if patient develops WALDO despite being volume overloaded, may consider right heart catheterization for further evaluation
- Continue diuretics, nephrology service on case
Other medical diagnoses:
- Anemia
- Paroxysmal SVT
- DM
- HTN/HLD
- CKD stage III
- Hypothyroidism
- Pancreatic lesion, s/p recent fine-needle aspiration. Currently being worked up
Total time spent on this consultation/encounter _82___ minutes which includes review of history, physical exam, medications, laboratory data, personal review of imaging, extensive review of outpatient records, discussion with care team and
respiratory therapy.
Data:
CXR 11/2024: Extremely low lung volumes.
Cardiomegaly, unchanged.
Pulmonary vascularity at least top normal, cannot exclude mild CHF versus acute pulmonary edema.
CT Abd/pelvis 11/2024: Small volume ascites, without significant change.
Hepatic cirrhotic morphology, splenomegaly and some perisplenic varices again seen. Heterogeneous appearance of the liver limited with this imaging modality for space-occupying lesion.
Cholelithiasis. Small pancreatic body and tail cystic lesions better appreciated on prior MRI.
Suggest follow-up MRI with contrast for pancreatic lesions and for more complete evaluation of liver.
Significantly increased bilateral lower lobe consolidations which although most likely represent atelectasis, pneumonia cannot be excluded.
Limited evaluation of intestinal tract without oral contrast, without intestinal obstruction or free air.
Marked widespread bilateral abdominal wall edematous changes, significantly increased from prior CT.
ECHO 07/2024: Normal biventricular size and systolic function without regional wall motion abnormality.
No significant valvular disease.
Right heart pressures could not be determined.
No pericardial effusion.
No significant change since the prior study of 02/21/2024.
[2024-12-10] MEDS: VITAMIN B-12 1000 MCG PO (17:04)
[2024-12-10] MEDS: NOVOLOG FLEXPEN-MODERATE RESISTANCE 3 UNITS SC (17:04)
[2024-12-10] MEDS: DILAUDID 8 MG PO (20:47)
[2024-12-10 21:52] LABS: Glucose - Point of Care 235 mg/dl (70-99)
[2024-12-10] MEDS: FLOMAX 0.8 MG PO (22:31)
[2024-12-10] MEDS: LIPITOR 40 MG PO (22:31)
[2024-12-11 03:00] VITALS: BP 134/53
[2024-12-11 05:37] VITALS: BMI 46.0
[2024-12-11 07:05] VITALS: BP 136/63
[2024-12-11 07:20] LABS: Glucose - Point of Care 176 mg/dl (70-99)
[2024-12-11 07:33] LABS: Hematocrit 26.9 % (39.0-52.0); Hemoglobin 8.6 g/dL (13.0-18.0); Mean Corpuscular Hgb 29.4 pg (27.0-31.0); Mean Corpuscular Volume 91.8 fL (80.0-94.0); Mean Platelet Volume 9.9 fL (7.4-10.4); Platelet Count 90 10^3/uL (130-400); Red Blood Cell Count 2.93 10^6/uL (4.70-6.10); Red Cell Dist. Width 15.3 % (11.5-14.5); White Blood Cell Count 4.2 10^3/uL (4.8-10.8)
--- NOTE | 2024-12-11 07:55 | W.PN.HOSP.TC ---
Addendum entered and electronically signed by Luciana Whipple MD 12/11/24 16:54:
I saw and evaluated the patient independently. I reviewed the resident�s note and agree with findings and plan as documented by Dr. Blanco.
GENERAL: well developed, well nourished, male in no apparent distress
HEENT: NC/AT O2 NC
HEART: regular rate and rhythm, +S1, +S2
LUNGS : clear to auscultation bilaterally
ABDOM: soft, nontender, nondistended, + bowel sounds
EXT: no cyanosis, clubbing--left leg with BKA and what appears to be fluid collection?/fluctuance on lateral side of stump--right leg with tense edema, chronic venous stasis changes with multiple 'nodules' on leg
NEUROLOGIC: grossly intact
SOB with acute hypoxemic resp insufficiency--on 2L O2--possible etiologies include exacerbation of HFpEF (but pro BNP is 512), Decompensated alcoholic liver cirrhosis not likely as INR WNL and no ascites to tap, gradual weight gain from immobility?
ineffective meds and dose change needed?--apprec renal--cont diuresis, lasix drip started--daily weights, I/Os--consider rechecking echo--trend troponin---cont xifaxin--may need right heart cath--metolazone added back, stopped last admission....
Urinary Retention secondary to BPH--had st cath-- duran placed at this time--cont flomax
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
anemia--Normocytic anemia with thrombocytopenia--likely from liver disease--follow
Paroxysmal SVT/Aflutter-- cont home diltiazem
type 2 IDDM--cont home insulin 60u degludec daily, 22ssi novolog-- cont home Jardiance
HTN/HLD- cont statin, metoprolol
Hypothyroidism- cont home levothyroxine
CKD stage 3a-- avoid nephrotoxic agents--apprec renal consult
DVT proph-- SCDs
Code status--FULL CODE
Original Note:
Today's Communication/Plan
-
- IS
- diurese
Assessment / Plan
Assessment / Plan
IMPRESSION:
64yo M [facility] HFpEF (EF 55-60%), aflutter, paroxysmal SVT, PAD, HTN, HLD, IDDM, CKD stage IIIa, alcoholic liver cirrhosis, b/l LE lymphedema presented to [facility] ED on 12/08 for 'fluid buildup.' Pt reports his legs feel more swollen, he is more dyspneic,
and has a pressure midchest.
PLAN:
Acute hypoxic respiratory failure
Possible acute on chronic HFpEF exacerbation
- unlikely due to decompensated cirrhosis d/t small volume ascites on CT abd/pelvis
- ? pneumonia vs atelectasis on CT abd/pelvis - less likely pna d/t absence of infectious signs/sx-- IS
- considering R heart cath to assess volume status
- LE doppler: Examination is technically difficult and significantly limited with severe edema bilaterally. As described above, no evidence of deep venous thrombosis within the visualized veins, but a limited examination.
- 08/07/24 echo: EF 55-60%
- follows w Dr. Blaise Mcfarland ([facility])
- CXR: Extremely low lung volumes. Cardiomegaly, unchanged. Pulmonary vascularity at least top normal, cannot exclude mild CHF versus acute pulmonary edema.
- proBNP wnl
- troponin undetectable
- abg reassuring
- keep Mg>2, K>4
- I/O's
- daily weights
- bumex 2g BID
- cont home spironolactone, metoprolol
- appreciate pulmonary input
Alcoholic liver cirrhosis
- follows w Dr. Garrett
- cont xifaxin
- PT/INR/PTT wnl
Urinary Retention secondary to BPH
- cont home tamsulosin
- duran
Normocytic anemia
Thrombocytopenia
- monitor
- PT/INR/PTT wnl
Aflutter
Paroxysmal SVT
- cont home diltiazem
- tele
IDDM
- cont home insulin 60u degludec daily, 22ssi novolog
- cont home jardiance
HTN/HLD
- cont statin, metoprolol
Hypothyroidism
- cont home levothyroxine
CKD stage 3a
- avoid nephrotoxic agents
- follows w Dr. Velazquez
- appreciate nephrology input
Diet: diabetic
DVT ppx: SCDs
Code status: FULL CODE
Anticipated Discharge: > 48 hours
Subjective/Interval History
-
Date of Service: December 11, 2024
No acute overnight events. Pt reports breathing better and feels in better spirits than yesterday.
Objective Data
-
Labs:
Laboratory Results
12/11/24
06:23
WBC 4.2 L
Hgb 8.6 L
Hct 26.9 L
Plt Count 90 L
Sodium Pending
Potassium Pending
Chloride Pending
Carbon Dioxide Pending
BUN Pending
Creatinine Pending
Glucose Pending
Calcium Pending
Total Bilirubin Pending
AST Pending
ALT Pending
Alkaline Phosphatase Pending
Vital Signs:
Vital Signs
Temp Pulse Resp BP Pulse Ox
98.1 F 62 16 136/63 97
12/11/24 07:05 12/11/24 07:05 12/11/24 07:05 12/11/24 07:05 12/11/24 07:05
I&O
12/10/24 12/11/24 12/12/24
06:59 06:59 06:59
Intake Total 1740 / 1740 2039 2039
Output Total 3000 / 3000 2920 / 2920
Balance -1260 / -1260 -880 / -880
Review of Systems
-
History Source: Patient
Constitutional: Reports No Symptoms
Respiratory: Reports Trouble Breathing
Cardiac: Reports No Symptoms
Abdomen/GI: Reports No Symptoms
Musculoskeletal: Reports Edema
Neuro: Reports No Symptoms
Physical Exam
-
General: Well Developed, Well Nourished, Conversant and Morbidly Obese
HEENT: Normocephalic, Atraumatic and Oxygen (3L O2 via NC)
Respiratory: Non Labored Respirations and Decreased Breath Sounds
Cardiac: Regular Rhythm and S1/S2
GI: Nontender, Normal Bowel Sounds and Distended
Musculoskeletal: Edema, Right Upper Extrem, Edema, Left Upper Extrem, Edema, Right Lower Extrem and Edema, Left Lower Extrem
Skin: Warm, Dry and IV Access / Catheter Site
Neuro: Awake, Alert and Oriented
Psych: Calm
[2024-12-11] MEDS: LANTUS 0.6 UNITS SC (08:12)
[2024-12-11] MEDS: NOVOLOG FLEXPEN-MODERATE RESISTANCE 1 UNITS SC (08:12)
[2024-12-11] MEDS: XIFAXAN 550 MG PO ×2 (08:13→19:34)
[2024-12-11] MEDS: ALDACTONE 12.5 MG PO (08:13)
[2024-12-11] MEDS: BUMEX 2 MG IV (08:13)
[2024-12-11] MEDS: TOPROL XL 75 MG PO ×2 (08:14→19:34)
[2024-12-11] MEDS: CARDIZEM CD 180 MG PO (08:14)
[2024-12-11] MEDS: ROCALTROL 0.25 MCG PO (08:14)
[2024-12-11 08:15] LABS: ALT (SGPT) 22 U/L (0-50); AST (SGOT) 24 U/L (17-59); Albumin 3.4 g/dl (3.5-5.0); Alkaline Phosphatase 180 U/L (38-126); Blood Urea Nitrogen 42 mg/dl (9-20); Calcium 8.6 mg/dl (8.4-10.2); Carbon Dioxide 28 mmol/L (22-30); Chloride 106 mmol/L (98-107); Estimated Creatinine Clearance 78 ml/min; Glucose 161 mg/dl (70-99); Magnesium 2.1 mg/dl (1.6-2.3); Potassium 4.3 mmol/L (3.5-5.1); Sodium 140 mmol/L (135-145); Total Bilirubin 1.2 mg/dl (0.2-1.3); Total Protein 6.2 g/dl (6.3-8.2); eGFR > 60.00
[2024-12-11] MEDS: ASPIR LOW (ENTERIC COATED) 81 MG PO (08:15)
[2024-12-11] MEDS: NEURONTIN 300 MG PO ×2 (08:15→19:34)
[2024-12-11] MEDS: FARXIGA 10 MG PO (08:16)
[2024-12-11] MEDS: SYNTHROID 137 MCG PO (08:16)
[2024-12-11] MEDS: DILAUDID 8 MG PO ×2 (08:19→19:34)
[2024-12-11 11:00] VITALS: BP 146/63
--- NOTE | 2024-12-11 11:13 | W.PN.PUL3 ---
Today's Communication / Plan
-
Continue with incentive spirometry, PT/OT as able
Diuresis per primary service
Does not appear to have any acute infectious process or acute airway process
Profoundly deconditioned
Disposition efforts
Assessment
-
#1. Acute hypoxic respiratory failure.
- Responded well to supplemental oxygen, currently 96 to 98% on 3 L
- Etiology of hypoxia appears to be volume overload with pulmonary edema as well as significant bilateral atelectasis lower lobes.
- Patient is afebrile, has normal white count, no cough or expectoration, pneumonia is less likely
- Patient is morbidly obese, mostly bedbound, has underlying cirrhosis also along with significant anasarca, all of these things are contributing to poor ventilation and resultant atelectasis
- VBG is reassuring, 7.43, 44. No evidence of CO2 retention. No indication for CPAP or BiPAP therapy.
- Continue aggressive diuresis as you are doing with IV Bumex, Farxiga as well as Aldactone
- Incentive spirometry. Technique was reviewed again
- Increase activity as tolerated, sit in chair as tolerated
- Patient does not have any cough or expectoration and no wheezing on exam. No indication for hypertonic saline, antibiotics or steroid therapy. Depending upon clinical course may consider vest therapy down the line
- Patient has never smoked. No prior history of COPD/asthma or emphysema. No wheezing on exam.
- ESS score is low. May consider sleep study as outpatient to evaluate for any sleep disordered breathing
#2. Acute on chronic heart failure with preserved ejection fraction.
- Patient has significant anasarca with volume overload.
- Cirrhosis is also contributing to volume overload. Albumin however is near normal at 3.5.
- Echocardiogram reviewed, right sided pulmonary artery pressure could not be assessed due to technical challenges. Right ventricular function and size appeared normal making significant pulmonary hypertension less likely.
- However if patient develops WALDO despite being volume overloaded, may consider right heart catheterization for further evaluation
- Continue diuretics, nephrology service on case
Other medical diagnoses:
- Anemia
- Paroxysmal SVT
- DM
- HTN/HLD
- CKD stage III
- Hypothyroidism
- Pancreatic lesion, s/p recent fine-needle aspiration. Currently being worked up
Data:
CXR 11/2024: Extremely low lung volumes.
Cardiomegaly, unchanged.
Pulmonary vascularity at least top normal, cannot exclude mild CHF versus acute pulmonary edema.
CT Abd/pelvis 11/2024: Small volume ascites, without significant change.
Hepatic cirrhotic morphology, splenomegaly and some perisplenic varices again seen. Heterogeneous appearance of the liver limited with this imaging modality for space-occupying lesion.
Cholelithiasis. Small pancreatic body and tail cystic lesions better appreciated on prior MRI.
Suggest follow-up MRI with contrast for pancreatic lesions and for more complete evaluation of liver.
Significantly increased bilateral lower lobe consolidations which although most likely represent atelectasis, pneumonia cannot be excluded.
Limited evaluation of intestinal tract without oral contrast, without intestinal obstruction or free air.
Marked widespread bilateral abdominal wall edematous changes, significantly increased from prior CT.
ECHO 07/2024: Normal biventricular size and systolic function without regional wall motion abnormality.
No significant valvular disease.
Right heart pressures could not be determined.
No pericardial effusion.
No significant change since the prior study of 02/21/2024.
Subjective Data
-
Date of Service:
Date of Service: December 11, 2024
Subjective:
Patient does not feel much different overall. Still with mild shortness of breath, fatigue. Denies chest pain, pleurisy. Complaining of abdominal distention but denies any abdominal pain. Denies nausea. Moving bowels.
Objective Data
Data Reviewed
Vital Signs / I&O / Oxygen:
Vital Signs
Temp Pulse Resp BP Pulse Ox
98.1 F 62 16 136/63 97
12/11/24 07:05 12/11/24 07:05 12/11/24 07:05 12/11/24 07:05 12/11/24 08:00
Intake and Output
12/10/24 12/11/24 12/12/24
06:59 06:59 06:59
Intake Total 1740 / 1740 2039 / 2039
Output Total 3000 / 3000 2920 / 2920
Balance -1260 / -1260 -880 / -880
SaO2 97
Nasal Cannula flow liters per 3
minute
Physical Exam
General: Comfortable
HEENT: Normocephalic, Anicteric and Other (Large neck)
Cardiovascular: S1-S2, Regular Rhythm, Murmur (n) and Rub (n)
Respiratory: Wheeze (n), Crackles (n), Rhonchi (n) and Other (Decreased at base)
GI: Soft, Non Distended (Obese) and Non Tender
Neurology: Awake, Alert, Oriented and No Motor Deficits (Profoundly weak, cannot lift up legs. Requires assistance to sit up)
Skin: Other (Chronic venous stasis changes right lower extremity, left AKA, chronic lymphedema)
Labs/Micro/Reports
Lab Data
12/11/24 06:23
12/11/24 06:23
Laboratory Results
12/10/24
08:37
pH Cancelled
pCO2 Cancelled
pO2 Cancelled
HCO3 Cancelled
O2 Delivery Level Cancelled
[2024-12-11 11:22] LABS: Glucose - Point of Care 229 mg/dl (70-99)
[2024-12-11] MEDS: NOVOLOG FLEXPEN-MODERATE RESISTANCE 3 UNITS SC ×2 (12:13→17:35)
--- NOTE | 2024-12-11 12:41 | W.PN.NEPH.PH ---
Today's Communication / Plan
-
Start Lasix drip
Assessment/Plan
-
IMP:
possible HFpEF - acute on chronic
CKD 3a cr 1.2-1.4
Type II DM
ETOH Cirrhosis
Lymphedema
Obesity, BMI 46
Intraductal papillary mucinous neoplasm -pancreatic cyst
Anemia
Hypothyroidism
h/o Urinary retention-BPH
Severe PAD, S/P left AKA
HLD
PLan:
A/w sob, 20lbs gain in last 2months more so in last 1 week failed increased dose of diuretics out pt
16kg over from last admit
if no improvement of symp may benefit from RHC
no DVT of leg with limited exam
follow bladder scan with prior h/o urine retention, SC as needed, cont high dose flomax
stable renal function at baseline, cont Farxiga
Bp stable on CCB, low dose Aldactone
Remains massively volume overloaded chronic lymphedema.
Will switch Bumex bolus twice daily to Lasix drip
Discussed with nursing staff
-
-
Date of Service: December 11, 2024
CC / HPI / ROS
-
Chief Complaint:
CKD
History of Present Illness:
cr stable at 1.2
Presents with shortness of breath
Review of Systems:
remains on O2, c/o sob no change
no cp
no n/v
Labs
-
Labs:
WBC 4.2 10^3/uL (4.8-10.8) L 12/11/24 06:23
RBC 2.93 10^6/uL (4.70-6.10) L 12/11/24 06:23
Hgb 8.6 g/dL (13.0-18.0) L 12/11/24 06:23
Hct 26.9 % (39.0-52.0) L 12/11/24 06:23
Plt Count 90 10^3/uL (130-400) L 12/11/24 06:23
Sodium 140 mmol/L (135-145) 12/11/24 06:23
Potassium 4.3 mmol/L (3.5-5.1) 12/11/24 06:23
Chloride 106 mmol/L (98-107) 12/11/24 06:23
Carbon Dioxide 28 mmol/L (22-30) 12/11/24 06:23
BUN 42 mg/dl (9-20) H 12/11/24 06:23
Creatinine 1.3 mg/dL (0.7-1.3) 12/11/24 06:23
eGFR > 60.00 12/11/24 06:23
Glucose 161 mg/dl (70-99) H 12/11/24 06:23
Calcium 8.6 mg/dl (8.4-10.2) 12/11/24 06:23
Btq-A-Fkifpyljfmw Pept 512 pg/ml 12/08/24 08:51
Albumin 3.4 g/dl (3.5-5.0) L 12/11/24 06:23
Physical Exam
-
Vital Signs:
Vital Signs
Temp Pulse Resp BP Pulse Ox
98.0 F 61 16 146/63 95
12/11/24 11:00 12/11/24 11:00 12/11/24 11:00 12/11/24 11:00 12/11/24 11:00
Cardiovascular:: Regular rate and rhythm
Respiratory:: Bilateral: CTA (decreased BS)
Lung Excursion:: Normal
Abdomen:: Distended
Extremity Edema:: +3: Right:
Theodore Catheter: No
Other Findings::
left bka-edematous stump
[2024-12-11] MEDS: LASIX 60 MG IV (13:56)
[2024-12-11] MEDS: LASIX 50 IV (13:56)
[2024-12-11 15:00] VITALS: BP 139/60
[2024-12-11 16:18] LABS: Glucose - Point of Care 221 mg/dl (70-99)
[2024-12-11] MEDS: VITAMIN B-12 1000 MCG PO (17:37)
[2024-12-11 19:11] VITALS: BP 138/61
[2024-12-11] MEDS: FLOMAX 0.8 MG PO (21:57)
[2024-12-11] MEDS: LIPITOR 40 MG PO (21:57)
[2024-12-11 21:58] LABS: Glucose - Point of Care 191 mg/dl (70-99)
[2024-12-11 23:12] VITALS: BP 138/63
[2024-12-12 03:20] VITALS: BP 130/59
[2024-12-12 06:00] VITALS: BMI 45.7
[2024-12-12 07:00] VITALS: BP 140/63
[2024-12-12 07:36] LABS: Glucose - Point of Care 149 mg/dl (70-99)
[2024-12-12 07:37] LABS: Hematocrit 26.2 % (39.0-52.0); Hemoglobin 8.5 g/dL (13.0-18.0); Mean Corp Hgb Conc. 32.4 g/dL (33.0-37.0); Mean Corpuscular Hgb 29.5 pg (27.0-31.0); Mean Platelet Volume 10.5 fL (7.4-10.4); Platelet Count 91 10^3/uL (130-400); Red Blood Cell Count 2.88 10^6/uL (4.70-6.10); Red Cell Dist. Width 15.1 % (11.5-14.5); White Blood Cell Count 4.1 10^3/uL (4.8-10.8)
[2024-12-12 07:50] VITALS: BMI 45.7
[2024-12-12 08:00] LABS: ALT (SGPT) 23 U/L (0-50); AST (SGOT) 27 U/L (17-59); Albumin 3.3 g/dl (3.5-5.0); Alkaline Phosphatase 191 U/L (38-126); Blood Urea Nitrogen 47 mg/dl (9-20); Calcium 8.4 mg/dl (8.4-10.2); Carbon Dioxide 27 mmol/L (22-30); Chloride 105 mmol/L (98-107); Estimated Creatinine Clearance 78 ml/min; Glucose 134 mg/dl (70-99); Magnesium 2.1 mg/dl (1.6-2.3); Potassium 4.1 mmol/L (3.5-5.1); Sodium 140 mmol/L (135-145); Total Bilirubin 1.1 mg/dl (0.2-1.3); Total Protein 6.1 g/dl (6.3-8.2); eGFR > 60.00
--- NOTE | 2024-12-12 08:09 | W.PN.HOSP.TC ---
Addendum entered and electronically signed by Luciana Whipple MD 12/12/24 17:49:
I saw and evaluated the patient independently. I reviewed the resident�s note and agree with findings and plan as documented by Dr. Blanco.
GENERAL: well developed, well nourished, male in no apparent distress
HEENT: NC/AT O2 NC
HEART: regular rate and rhythm, +S1, +S2
LUNGS : clear to auscultation bilaterally
ABDOM: soft, nontender, nondistended, + bowel sounds
EXT: no cyanosis, clubbing--left leg with BKA and what appears to be fluid collection?/fluctuance on lateral side of stump--right leg with tense edema, chronic venous stasis changes with multiple 'nodules' on leg
NEUROLOGIC: grossly intact
Selected Entries
12/08/24
08:53 12/12/24
06:00
Actual Weight 139.4 kg 136.395 kg
SOB with acute hypoxemic resp insufficiency--on 2L O2-- etiologies likely exacerbation of HFpEF (despite pro BNP of 512), Decompensated alcoholic liver cirrhosis not likely as INR WNL and no ascites to tap, gradual weight gain from immobility?
ineffective meds and dose change needed?--apprec renal--cont diuresis, lasix drip started and dose now increased, creat holding steady with diuresis--daily weights, I/Os---cont xifaxin--may need right heart cath--metolazone added back, was stopped
last admission....apprec pulm input
Urinary Retention secondary to BPH--had st cath-- duran placed at this time--cont flomax
Chronic HFpEF --undercoater at [facility]--consider need for cards eval--cont aldactone, metoprolol, bumex--daily weights, I/Os
anemia--Normocytic anemia with thrombocytopenia--likely from liver disease--follow
Paroxysmal SVT/Aflutter-- cont home diltiazem
type 2 IDDM--cont home insulin 60u degludec daily, 22ssi novolog-- cont home Jardiance
HTN/HLD- cont statin, metoprolol
Hypothyroidism- cont home levothyroxine
CKD stage 3a-- avoid nephrotoxic agents--apprec renal consult
DVT proph-- SCDs
Code status--FULL CODE
Original Note:
Today's Communication/Plan
-
- continue diuresis
Assessment / Plan
Assessment / Plan
IMPRESSION:
64yo M [facility] HFpEF (EF 55-60%), aflutter, paroxysmal SVT, PAD, HTN, HLD, IDDM, CKD stage IIIa, alcoholic liver cirrhosis, b/l LE lymphedema presented to [facility] ED on 12/08 for 'fluid buildup.' Pt reports his legs feel more swollen, he is more dyspneic,
and has a pressure midchest.
PLAN:
Acute hypoxic respiratory failure
Possible acute on chronic HFpEF exacerbation
- unlikely due to decompensated cirrhosis d/t small volume ascites on CT abd/pelvis
- ? pneumonia vs atelectasis on CT abd/pelvis - less likely pna d/t absence of infectious signs/sx-- IS
- considering R heart cath to assess volume status
- LE doppler: Examination is technically difficult and significantly limited with severe edema bilaterally. As described above, no evidence of deep venous thrombosis within the visualized veins, but a limited examination.
- 08/07/24 echo: EF 55-60%
- follows w Dr. Blaise Mcfarland ([facility])
- CXR: Extremely low lung volumes. Cardiomegaly, unchanged. Pulmonary vascularity at least top normal, cannot exclude mild CHF versus acute pulmonary edema.
- proBNP wnl
- troponin undetectable
- abg reassuring
- keep Mg>2, K>4
- I/O's
- daily weights
- IV lasix
- cont home spironolactone, metoprolol
- appreciate pulmonary input
Alcoholic liver cirrhosis
- follows w Dr. Garrett
- cont xifaxin
- PT/INR/PTT wnl
Urinary Retention secondary to BPH
- cont home tamsulosin
- duran
Normocytic anemia
Thrombocytopenia
- monitor
- PT/INR/PTT wnl
Aflutter
Paroxysmal SVT
- cont home diltiazem
- tele
IDDM
- cont home insulin 60u degludec daily, 22ssi novolog
- cont home jardiance
HTN/HLD
- cont statin, metoprolol
Hypothyroidism
- cont home levothyroxine
CKD stage 3a
- avoid nephrotoxic agents
- follows w Dr. Velazquez
- appreciate nephrology input
Diet: diabetic
DVT ppx: SCDs
Code status: FULL CODE
Anticipated Discharge: > 48 hours
Subjective/Interval History
-
Date of Service: December 12, 2024
No acute overnight events.
Objective Data
-
Labs:
Laboratory Results
12/12/24
06:01
WBC 4.1 L
Hgb 8.5 L
Hct 26.2 L
Plt Count 91 L
Sodium 140
Potassium 4.1
Chloride 105
Carbon Dioxide 27
BUN 47 H
Creatinine 1.3
Glucose 134 H
Calcium 8.4
Total Bilirubin 1.1
AST 27
ALT 23
Alkaline Phosphatase 191 H
Vital Signs:
Vital Signs
Temp Pulse Resp BP Pulse Ox
97.7 F 61 16 140/63 96
12/12/24 07:00 12/12/24 07:00 12/12/24 07:00 12/12/24 07:00 12/12/24 07:00
I&O
12/11/24 12/12/24 12/13/24
06:59 06:59 06:59
Intake Total 2039 1280 / 1280
Output Total 0 / 0 3225 / 3225
Balance -880 / -880 -1944 / -1944
[2024-12-12] MEDS: CARDIZEM CD 180 MG PO (08:51)
[2024-12-12] MEDS: FARXIGA 10 MG PO (08:52)
[2024-12-12] MEDS: SYNTHROID 137 MCG PO (08:52)
[2024-12-12] MEDS: ALDACTONE 12.5 MG PO (08:52)
[2024-12-12] MEDS: ASPIR LOW (ENTERIC COATED) 81 MG PO (08:52)
[2024-12-12] MEDS: XIFAXAN 550 MG PO ×2 (08:52→21:49)
[2024-12-12] MEDS: ROCALTROL 0.25 MCG PO (08:52)
[2024-12-12] MEDS: NEURONTIN 300 MG PO ×2 (08:52→21:49)
[2024-12-12] MEDS: TOPROL XL 75 MG PO ×2 (08:53→21:50)
[2024-12-12] MEDS: LANTUS 0.6 UNITS SC (08:55)
[2024-12-12] MEDS: DILAUDID 8 MG PO ×2 (09:01→21:54)
[2024-12-12] MEDS: NOVOLOG FLEXPEN-MODERATE RESISTANCE SC (09:05)
[2024-12-12 11:00] VITALS: BP 149/84
[2024-12-12 11:07] LABS: Glucose - Point of Care 213 mg/dl (70-99)
--- NOTE | 2024-12-12 11:34 | W.PN.NEPH.PH ---
Today's Communication / Plan
-
Increase lasix drip to 10mg/hr
check Fe studies
Assessment/Plan
-
IMP:
possible HFpEF - acute on chronic
CKD 3a cr 1.2-1.4
Type II DM
ETOH Cirrhosis
Lymphedema
Obesity, BMI 46
Intraductal papillary mucinous neoplasm -pancreatic cyst
Anemia
Hypothyroidism
h/o Urinary retention-BPH
Severe PAD, S/P left AKA
HLD
PLan:
A/w sob, 20lbs gain in last 2months more so in last 1 week failed increased dose of diuretics out pt
16kg over from last admit
Wt is improving but slowly
will increase lasix drip to 10mg/hr and likely add metolazone if needed
if no improvement of symp may benefit from RHC
no DVT of leg with limited exa
follow bladder scan with prior h/o urine retention, duran placed, cont high dose flomax
stable renal function at baseline, cont Farxiga
Bp stable on CCB, low dose Aldactone
Remains massively volume overloaded chronic lymphedema.
follow h/h-check fe studies
-
-
Date of Service: December 12, 2024
CC / HPI / ROS
-
Chief Complaint:
CKD
History of Present Illness:
cr stable at 1.3, k normal
wt only little better
Review of Systems:
remains on O2, may be mild improvement of sob
no cp
no n/v
Labs
-
Labs:
WBC 4.1 10^3/uL (4.8-10.8) L 12/12/24 06:01
RBC 2.88 10^6/uL (4.70-6.10) L 12/12/24 06:01
Hgb 8.5 g/dL (13.0-18.0) L 12/12/24 06:01
Hct 26.2 % (39.0-52.0) L 12/12/24 06:01
Plt Count 91 10^3/uL (130-400) L 12/12/24 06:01
Sodium 140 mmol/L (135-145) 12/12/24 06:01
Potassium 4.1 mmol/L (3.5-5.1) 12/12/24 06:01
Chloride 105 mmol/L (98-107) 12/12/24 06:01
Carbon Dioxide 27 mmol/L (22-30) 12/12/24 06:01
BUN 47 mg/dl (9-20) H 12/12/24 06:01
Creatinine 1.3 mg/dL (0.7-1.3) 12/12/24 06:01
eGFR > 60.00 12/12/24 06:01
Glucose 134 mg/dl (70-99) H 12/12/24 06:01
Calcium 8.4 mg/dl (8.4-10.2) 12/12/24 06:01
Dfb-D-Qrmqorqzkfn Pept 512 pg/ml 12/08/24 08:51
Albumin 3.3 g/dl (3.5-5.0) L 12/12/24 06:01
Physical Exam
-
Vital Signs:
Vital Signs
Temp Pulse Resp BP Pulse Ox
98.4 F 61 14 135/59 97
12/12/24 15:00 12/12/24 15:00 12/12/24 15:00 12/12/24 15:00 12/12/24 15:00
Cardiovascular:: Regular rate and rhythm
Respiratory:: Bilateral: CTA (decreased BS)
Lung Excursion:: Normal
Abdomen:: Distended
Extremity Edema:: +3: Right:
Duran Catheter: No
Other Findings::
left bka-edematous stump
[2024-12-12] MEDS: NOVOLOG FLEXPEN-MODERATE RESISTANCE 3 UNITS SC ×2 (12:44→17:31)
[2024-12-12 15:00] VITALS: BP 135/59
--- NOTE | 2024-12-12 16:04 | W.PN.PUL3 ---
Today's Communication / Plan
-
Continue diuresis per nephrology
Follow oxygen requirement
Patient may require oxygen at home
Incentive spirometry
Assessment
-
#1. Acute hypoxic respiratory failure.
- Responded well to supplemental oxygen, currently 96 to 98% on 3 L, remains on 3 L
- Etiology of hypoxia appears to be volume overload with pulmonary edema as well as significant bilateral atelectasis lower lobes.
- Patient is afebrile, has normal white count, no cough or expectoration, pneumonia is less likely
- Patient is morbidly obese, mostly bedbound, has underlying cirrhosis also along with significant anasarca, all of these things are contributing to poor ventilation and resultant atelectasis
- VBG is reassuring, 7.43, 44. No evidence of CO2 retention. No indication for CPAP or BiPAP therapy.
- Continue aggressive diuresis as you are doing with IV Bumex, Farxiga as well as Aldactone
- Incentive spirometry. Technique was reviewed again
- Increase activity as tolerated, sit in chair as tolerated
- Patient does not have any cough or expectoration and no wheezing on exam. No indication for hypertonic saline, antibiotics or steroid therapy. Depending upon clinical course may consider vest therapy down the line
- Patient has never smoked. No prior history of COPD/asthma or emphysema. No wheezing on exam.
- ESS score is low. May consider sleep study as outpatient to evaluate for any sleep disordered breathing
#2. Acute on chronic heart failure with preserved ejection fraction.
- Patient has significant anasarca with volume overload.
- Cirrhosis is also contributing to volume overload. Albumin however is near normal at 3.5.
- Echocardiogram reviewed, right sided pulmonary artery pressure could not be assessed due to technical challenges. Right ventricular function and size appeared normal making significant pulmonary hypertension less likely.
- However if patient develops WALDO despite being volume overloaded, may consider right heart catheterization for further evaluation
- Continue diuretics, nephrology service on case. Negative fluid status is target
Other medical diagnoses:
- Anemia
- Paroxysmal SVT
- DM
- HTN/HLD
- CKD stage III
- Hypothyroidism
- Pancreatic lesion, s/p recent fine-needle aspiration. Currently being worked up
Data:
CXR 11/2024: Extremely low lung volumes.
Cardiomegaly, unchanged.
Pulmonary vascularity at least top normal, cannot exclude mild CHF versus acute pulmonary edema.
CT Abd/pelvis 11/2024: Small volume ascites, without significant change.
Hepatic cirrhotic morphology, splenomegaly and some perisplenic varices again seen. Heterogeneous appearance of the liver limited with this imaging modality for space-occupying lesion.
Cholelithiasis. Small pancreatic body and tail cystic lesions better appreciated on prior MRI.
Suggest follow-up MRI with contrast for pancreatic lesions and for more complete evaluation of liver.
Significantly increased bilateral lower lobe consolidations which although most likely represent atelectasis, pneumonia cannot be excluded.
Limited evaluation of intestinal tract without oral contrast, without intestinal obstruction or free air.
Marked widespread bilateral abdominal wall edematous changes, significantly increased from prior CT.
ECHO 07/2024: Normal biventricular size and systolic function without regional wall motion abnormality.
No significant valvular disease.
Right heart pressures could not be determined.
No pericardial effusion.
No significant change since the prior study of 02/21/2024.
Subjective Data
-
Date of Service:
Date of Service: December 12, 2024
Subjective:
Patient feels breathing may be slightly better. Diuresis noted. Denies chest pain. Has mild dry cough. Remains sedentary, fatigued
Objective Data
Data Reviewed
Vital Signs / I&O / Oxygen:
Vital Signs
Temp Pulse Resp BP Pulse Ox
98.4 F 61 14 135/59 97
12/12/24 15:00 12/12/24 15:00 12/12/24 15:00 12/12/24 15:00 12/12/24 15:00
Intake and Output
12/11/24 12/12/24 12/13/24
06:59 06:59 06:59
Intake Total 2039 1280 / 1280
Output Total 0 / 2919 3225 / 3225
Balance -880 / -880 -1944 / -1944
SaO2 97
Nasal Cannula flow liters per 3
minute
Physical Exam
General: Comfortable
HEENT: Normocephalic, Anicteric and Other (Large neck)
Cardiovascular: S1-S2, Regular Rhythm, Murmur (n) and Rub (n)
Respiratory: Wheeze (n), Crackles (n), Rhonchi (n) and Other (Decreased at base)
GI: Soft, Non Distended (Obese) and Non Tender
Neurology: Awake, Alert, Oriented and No Motor Deficits (Profoundly weak, cannot lift up legs. Requires assistance to sit up)
Skin: Other (Chronic venous stasis changes right lower extremity, left AKA, chronic lymphedema)
Labs/Micro/Reports
Lab Data
12/12/24 06:01
12/12/24 06:01
[2024-12-12 16:06] LABS: Glucose - Point of Care 208 mg/dl (70-99)
--- NOTE | 2024-12-12 17:28 | DOWNTIME ---
There was a [employer] Client [employer] Downtime on 12/12/2024 from 1230 to 12/12/2024 at 1550. Downtime documentation of patient's care, including medication administrations, has been reconciled in the electronic record per guidelines. Refer to the
patient's paper chart under the miscellaneous tab to see printed paper medication records and downtime forms.
[2024-12-12] MEDS: VITAMIN B-12 1000 MCG PO (17:32)
[2024-12-12 19:13] VITALS: BP 141/58
[2024-12-12] MEDS: LIPITOR 40 MG PO (21:52)
[2024-12-12] MEDS: FLOMAX 0.8 MG PO (21:52)
[2024-12-12 22:04] LABS: Glucose - Point of Care 441 mg/dl (70-99)
[2024-12-12 22:04] LABS: Glucose - Point of Care 257 mg/dl (70-99)
[2024-12-12 23:15] VITALS: BP 143/66
[2024-12-13] VITALS (8 sets, daily range): BP systolic 130–144; BP diastolic 56–65; PULSE 62–63; O2SAT 97–98; BMI 44.9
--- NOTE | 2024-12-13 02:43 | GLUCOSE ---
SITUATION:
POC BG test completed at 2156 with a result of 441. Repeat BG @ 0 resulted as 257.
BACKGROUND:
Routine POC testing.
ASSESSMENT:
Initial POC test (2156) was found to be inaccurately preformed due to smearing and poor blood sample. Repeat POC testing was requested by Pt and RN. Repeat POC testing resulted in a lower value that matched pt's clinical presentation (denied s/s of
hyperglycemia).
RECOMMENDATION:
Provider notified of elevated BG. No new orders at this time. Lab was unable to remove the inaccurate POC testing value from the system.
[2024-12-13 07:26] LABS: Glucose - Point of Care 208 mg/dl (70-99)
[2024-12-13 07:34] LABS: Hematocrit 26.5 % (39.0-52.0); Hemoglobin 8.8 g/dL (13.0-18.0); Mean Corp Hgb Conc. 33.2 g/dL (33.0-37.0); Mean Corpuscular Hgb 29.6 pg (27.0-31.0); Mean Corpuscular Volume 89.2 fL (80.0-94.0); Mean Platelet Volume 10.7 fL (7.4-10.4); Platelet Count 93 10^3/uL (130-400); Red Blood Cell Count 2.97 10^6/uL (4.70-6.10); White Blood Cell Count 3.8 10^3/uL (4.8-10.8)
[2024-12-13] MEDS: NOVOLOG FLEXPEN-MODERATE RESISTANCE 3 UNITS SC ×3 (07:55→17:19)
--- NOTE | 2024-12-13 07:58 | W.PN.HOSP.TC ---
Today's Communication/Plan
-
- continue to diurese
Assessment / Plan
Assessment / Plan
IMPRESSION:
64yo M [facility] HFpEF (EF 55-60%), aflutter, paroxysmal SVT, PAD, HTN, HLD, IDDM, CKD stage IIIa, alcoholic liver cirrhosis, b/l LE lymphedema presented to [facility] ED on 12/08 for 'fluid buildup.' Pt reports his legs feel more swollen, he is more dyspneic,
and has a pressure midchest.
PLAN:
Acute hypoxic respiratory failure
Possible acute on chronic HFpEF exacerbation
- unlikely due to decompensated cirrhosis d/t small volume ascites on CT abd/pelvis
- ? pneumonia vs atelectasis on CT abd/pelvis - less likely pna d/t absence of infectious signs/sx-- IS
- considering R heart cath to assess volume status
- LE doppler: Examination is technically difficult and significantly limited with severe edema bilaterally. As described above, no evidence of deep venous thrombosis within the visualized veins, but a limited examination.
- 08/07/24 echo: EF 55-60%
- follows w Dr. Blaise Mcfarland ([facility])
- CXR: Extremely low lung volumes. Cardiomegaly, unchanged. Pulmonary vascularity at least top normal, cannot exclude mild CHF versus acute pulmonary edema.
- proBNP wnl
- troponin undetectable
- abg reassuring
- keep Mg>2, K>4
- I/O's
- daily weights
- IV lasix
- cont home spironolactone, metoprolol
- appreciate pulmonary input
Constipation
- colace
Alcoholic liver cirrhosis
- follows w Dr. Garrett
- cont xifaxin
- PT/INR/PTT wnl
Urinary Retention secondary to BPH
- cont home tamsulosin
- duran
Normocytic anemia
Thrombocytopenia
- monitor
- PT/INR/PTT wnl
Aflutter
Paroxysmal SVT
- cont home diltiazem
- tele
IDDM
- cont home insulin 60u degludec daily, 22ssi novolog
- cont home jardiance
HTN/HLD
- cont statin, metoprolol
Hypothyroidism
- cont home levothyroxine
CKD stage 3a
- avoid nephrotoxic agents
- follows w Dr. Velazquez
- appreciate nephrology input
Diet: diabetic
DVT ppx: SCDs
Code status: FULL CODE
Anticipated Discharge: > 48 hours
Subjective/Interval History
-
Date of Service: December 13, 2024
No acute overnight events. Dyspnea improving
Objective Data
-
Labs:
Laboratory Results
12/13/24
06:54
WBC 3.8 L
Hgb 8.8 L
Hct 26.5 L
Plt Count 93 L
Sodium Pending
Potassium Pending
Chloride Pending
Carbon Dioxide Pending
BUN Pending
Creatinine Pending
Glucose Pending
Calcium Pending
Total Bilirubin Pending
AST Pending
ALT Pending
Alkaline Phosphatase Pending
Vital Signs:
Vital Signs
Temp Pulse Resp BP Pulse Ox
98.2 F 61 18 130/56 97
12/13/24 03:06 12/13/24 03:06 12/13/24 03:06 12/13/24 03:06 12/13/24 03:06
I&O
12/12/24 12/13/24 12/14/24
06:59 06:59 06:59
Intake Total 1280 / 1280 2180 / 2180
Output Total 3225 / 3225 3525 / 3525
Balance -1945 / -1945 -1345 / -1345
Review of Systems
-
History Source: Patient
Constitutional: Reports No Symptoms
Respiratory: Reports Trouble Breathing
Cardiac: Reports No Symptoms
Abdomen/GI: Reports No Symptoms
Musculoskeletal: Reports Edema
Neuro: Reports No Symptoms
Physical Exam
-
General: Well Developed, Well Nourished and Morbidly Obese
HEENT: Normocephalic and Atraumatic
Respiratory: Accessory Resp Muscle Use and Decreased Breath Sounds
Cardiac: Regular Rhythm and S1/S2
GI: Soft, Nontender, Nondistended and Normal Bowel Sounds
Musculoskeletal: Edema, Right Lower Extrem and Edema, Left Lower Extrem
Skin: Warm, Dry and IV Access / Catheter Site
Neuro: Awake, Alert and Oriented
Psych: Calm
[2024-12-13] MEDS: TOPROL XL 75 MG PO ×2 (08:02→22:02)
[2024-12-13] MEDS: CARDIZEM CD 180 MG PO (08:03)
[2024-12-13] MEDS: DILAUDID 8 MG PO ×2 (08:04→22:10)
[2024-12-13] MEDS: SYNTHROID 137 MCG PO (08:04)
[2024-12-13] MEDS: FARXIGA 10 MG PO (08:05)
[2024-12-13] MEDS: ASPIR LOW (ENTERIC COATED) 81 MG PO (08:05)
[2024-12-13] MEDS: ROCALTROL 0.25 MCG PO (08:05)
[2024-12-13] MEDS: MIRALAX 17 GRAMS PO (08:05)
[2024-12-13] MEDS: XIFAXAN 550 MG PO ×2 (08:05→22:02)
[2024-12-13] MEDS: NEURONTIN 300 MG PO ×2 (08:05→22:01)
[2024-12-13] MEDS: ALDACTONE 12.5 MG PO (08:06)
[2024-12-13 08:07] LABS: ALT (SGPT) 21 U/L (0-50); AST (SGOT) 21 U/L (17-59); Albumin 3.4 g/dl (3.5-5.0); Alkaline Phosphatase 190 U/L (38-126); Blood Urea Nitrogen 48 mg/dl (9-20); Calcium 8.8 mg/dl (8.4-10.2); Carbon Dioxide 30 mmol/L (22-30); Chloride 104 mmol/L (98-107); Estimated Creatinine Clearance 77 ml/min; Glucose 184 mg/dl (70-99); Iron 52 ug/dl (49-181); Magnesium 2.1 mg/dl (1.6-2.3); Potassium 3.9 mmol/L (3.5-5.1); Sodium 141 mmol/L (135-145); Total Bilirubin 0.9 mg/dl (0.2-1.3); Total Protein 6.3 g/dl (6.3-8.2); eGFR > 60.00
[2024-12-13] MEDS: LANTUS 0.6 UNITS SC (08:08)
[2024-12-13 08:16] LABS: Percent Saturation 15 % (20-50); Total Iron Binding Capacity 333 ug/dl (261-462)
[2024-12-13 11:06] LABS: Glucose - Point of Care 229 mg/dl (70-99)
[2024-12-13 11:21] LABS: Ferritin 69.1 ng/ml (17.9-464.0)
[2024-12-13] MEDS: COLACE 100 MG PO (12:01)
--- NOTE | 2024-12-13 12:27 | CM ---
Patient seen at bedside daily with physicians. Patient plan continues to be to return to [facility] with VN, pending PT/OT assessments. Patient has no concerns at this time. CM will continue to follow for discharge planning needs.
Plan; return to home with VN vs SNF
--- NOTE | 2024-12-13 13:01 | W.PN.NEPH.PH ---
Today's Communication / Plan
-
metolazone, cont lasix gtt
increase spironolactone
Assessment/Plan
-
IMP:
possible HFpEF - acute on chronic
CKD 3a cr 1.2-1.4
Type II DM
ETOH Cirrhosis
Lymphedema
Obesity, BMI 46
Intraductal papillary mucinous neoplasm -pancreatic cyst
Anemia
Hypothyroidism
h/o Urinary retention-BPH
Severe PAD, S/P left AKA
HLD
PLan:
A/w sob, 20lbs gain in last 2months more so in last 1 week failed increased dose of diuretics out pt
Wt is improving but slowly
cont lasix drip to 10mg/hr and likely add metolazone today
reviewed imp of FR 48ounces/day, pt was not following even at home
consider RHC if no response to diuresis
remains on duran for h/o retention, cont high dose flomax
k is decreasing, increase Spironolactone to 25mg daily
stable renal function at baseline, cont Farxiga
Bp stable on CCB, low dose Aldactone
Remains massively volume overloaded chronic lymphedema.
follow h/h-fe sat only 15%, will start IV fe course
-
-
Date of Service: December 13, 2024
CC / HPI / ROS
-
Chief Complaint:
CKD
History of Present Illness:
cr stable at 1.3, k normal
wt only little better
Review of Systems:
remains on O2, mild improvement of sob and edema
no cp
no n/v
Labs
-
Labs:
WBC 3.8 10^3/uL (4.8-10.8) L 12/13/24 06:54
RBC 2.97 10^6/uL (4.70-6.10) L 12/13/24 06:54
Hgb 8.8 g/dL (13.0-18.0) L 12/13/24 06:54
Hct 26.5 % (39.0-52.0) L 12/13/24 06:54
Plt Count 93 10^3/uL (130-400) L 12/13/24 06:54
Sodium 141 mmol/L (135-145) 12/13/24 06:54
Potassium 3.9 mmol/L (3.5-5.1) 12/13/24 06:54
Chloride 104 mmol/L (98-107) 12/13/24 06:54
Carbon Dioxide 30 mmol/L (22-30) 12/13/24 06:54
BUN 48 mg/dl (9-20) H 12/13/24 06:54
Creatinine 1.3 mg/dL (0.7-1.3) 12/13/24 06:54
eGFR > 60.00 12/13/24 06:54
Glucose 184 mg/dl (70-99) H 12/13/24 06:54
Calcium 8.8 mg/dl (8.4-10.2) 12/13/24 06:54
Vlj-X-Fqunrahbxrp Pept 512 pg/ml 12/08/24 08:51
Albumin 3.4 g/dl (3.5-5.0) L 12/13/24 06:54
Physical Exam
-
Vital Signs:
Vital Signs
Temp Pulse Resp BP Pulse Ox
97.7 F 63 16 136/60 97
12/13/24 11:00 12/13/24 11:00 12/13/24 11:00 12/13/24 11:00 12/13/24 11:00
Cardiovascular:: Regular rate and rhythm
Respiratory:: Bilateral: CTA (decreased BS)
Lung Excursion:: Normal
Abdomen:: Distended
Extremity Edema:: +3: Right:
Duran Catheter: Yes
Other Findings::
left bka-edematous stump
[2024-12-13] MEDS: ZAROXOLYN 5 MG PO (13:54)
[2024-12-13] MEDS: FERRLECIT 110 MG IV (13:54)
--- NOTE | 2024-12-13 16:00 | CM ---
Patient seen at bedside in [address] [place] [address]. Patient asking for crackers, patient nurse made aware.
[2024-12-13 16:29] LABS: Glucose - Point of Care 228 mg/dl (70-99)
--- NOTE | 2024-12-13 17:06 | W.PN.PUL3 ---
Today's Communication / Plan
-
continue diuresis. Weight down 6 kg
Chest exam is improved, better movement
Obtain chest x-ray in the a.m.
I do suspect sleep disorder breathing. Continue with head of bed elevated
May require home oxygen, nocturnal oxygen
Assessment
-
#1. Acute hypoxic respiratory failure.
- Responded well to supplemental oxygen, currently 96 to 98% on 3 L, remains on 3 L
- Etiology of hypoxia appears to be volume overload with pulmonary edema as well as significant bilateral atelectasis lower lobes.
- Patient is afebrile, has normal white count, no cough or expectoration, pneumonia is less likely
- Patient is morbidly obese, mostly bedbound, has underlying cirrhosis also along with significant anasarca, all of these things are contributing to poor ventilation and resultant atelectasis
- VBG is reassuring, 7.43, 44. No evidence of CO2 retention. No indication for CPAP or BiPAP therapy.
- Continue aggressive diuresis as you are doing with IV Bumex, Farxiga as well as Aldactone
- Incentive spirometry.
- Increase activity as tolerated, sit in chair as tolerated
- Patient does not have any cough or expectoration and no wheezing on exam. No indication for hypertonic saline, antibiotics or steroid therapy. Depending upon clinical course may consider vest therapy down the line
- Patient has never smoked. No prior history of COPD/asthma or emphysema. No wheezing on exam. Chest exam appears to be improved today
- ESS score is low. May consider sleep study as outpatient to evaluate for any sleep disordered breathing
#2. Acute on chronic heart failure with preserved ejection fraction.
- Patient has significant anasarca with volume overload.
- Cirrhosis is also contributing to volume overload. Albumin however is near normal at 3.5.
- Echocardiogram reviewed, right sided pulmonary artery pressure could not be assessed due to technical challenges. Right ventricular function and size appeared normal making significant pulmonary hypertension less likely.
- However if patient develops WALDO despite being volume overloaded, may consider right heart catheterization for further evaluation
- Continue diuretics, nephrology service on case. Negative fluid status is target. Her weight is down 6 kg since admission
- Obtain chest x-ray in a.m.
Other medical diagnoses:
- Anemia
- Paroxysmal SVT
- DM
- HTN/HLD
- CKD stage III
- Hypothyroidism
- Pancreatic lesion, s/p recent fine-needle aspiration. Currently being worked up
Data:
CXR 11/2024: Extremely low lung volumes.
Cardiomegaly, unchanged.
Pulmonary vascularity at least top normal, cannot exclude mild CHF versus acute pulmonary edema.
CT Abd/pelvis 11/2024: Small volume ascites, without significant change.
Hepatic cirrhotic morphology, splenomegaly and some perisplenic varices again seen. Heterogeneous appearance of the liver limited with this imaging modality for space-occupying lesion.
Cholelithiasis. Small pancreatic body and tail cystic lesions better appreciated on prior MRI.
Suggest follow-up MRI with contrast for pancreatic lesions and for more complete evaluation of liver.
Significantly increased bilateral lower lobe consolidations which although most likely represent atelectasis, pneumonia cannot be excluded.
Limited evaluation of intestinal tract without oral contrast, without intestinal obstruction or free air.
Marked widespread bilateral abdominal wall edematous changes, significantly increased from prior CT.
ECHO 07/2024: Normal biventricular size and systolic function without regional wall motion abnormality.
No significant valvular disease.
Right heart pressures could not be determined.
No pericardial effusion.
No significant change since the prior study of 02/21/2024.
Subjective Data
-
Date of Service:
Date of Service: December 13, 2024
Subjective:
Patient feels slightly improved today. Less short of breath, left chest fullness. Has mild dry cough. Denies nausea, abdominal pain
Objective Data
Data Reviewed
Vital Signs / I&O / Oxygen:
Vital Signs
Temp Pulse Resp BP Pulse Ox
97.7 F 61 16 140/64 98
12/13/24 15:05 12/13/24 15:05 12/13/24 15:05 12/13/24 15:05 12/13/24 15:05
Intake and Output
12/12/24 12/13/24 12/14/24
06:59 06:59 06:59
Intake Total 1280 / 1280 2180 / 2180
Output Total 3225 / 3225 3525 / 3525
Balance -1945 / -1945 -1345 / -1345
SaO2 98
Nasal Cannula flow liters per 3
minute
Physical Exam
General: Comfortable
HEENT: Normocephalic, Anicteric and Other (Large neck)
Cardiovascular: S1-S2, Regular Rhythm, Murmur (n) and Rub (n)
Respiratory: Wheeze (n), Crackles (n) and Rhonchi (n)
GI: Soft, Non Distended (Obese) and Non Tender
Neurology: Awake, Alert, Oriented and No Motor Deficits (Profoundly weak, cannot lift up legs. Requires assistance to sit up)
Skin: Other (Chronic venous stasis changes right lower extremity, left AKA, chronic lymphedema)
Labs/Micro/Reports
Lab Data
12/13/24 06:54
12/13/24 06:54
[2024-12-13] MEDS: VITAMIN B-12 1000 MCG PO (17:19)
[2024-12-13 21:22] LABS: Glucose - Point of Care 271 mg/dl (70-99)
[2024-12-13] MEDS: LIPITOR 40 MG PO (22:02)
[2024-12-13] MEDS: FLOMAX 0.8 MG PO (22:02)
[2024-12-13] MEDS: LASIX 50 IV (22:57)
[2024-12-14 00:22] LABS: Blood Urea Nitrogen 53 mg/dl (9-20); Calcium 8.8 mg/dl (8.4-10.2); Carbon Dioxide 33 mmol/L (22-30); Chloride 101 mmol/L (98-107); Estimated Creatinine Clearance 77 ml/min; Glucose 226 mg/dl (70-99); Magnesium 2.1 mg/dl (1.6-2.3); Potassium 3.8 mmol/L (3.5-5.1); Sodium 139 mmol/L (135-145); eGFR > 60.00
[2024-12-14] MEDS: KCL 20 MEQ PO (00:52)
[2024-12-14 03:20] VITALS: BP 140/62
[2024-12-14 04:02] VITALS: BMI 44.4
[2024-12-14 06:00] VITALS: BMI 44.4
[2024-12-14] MEDS: SYNTHROID 137 MCG PO (06:28)
[2024-12-14 07:06] LABS: Hematocrit 27.9 % (39.0-52.0); Hemoglobin 8.9 g/dL (13.0-18.0); Mean Corp Hgb Conc. 31.9 g/dL (33.0-37.0); Mean Corpuscular Hgb 28.7 pg (27.0-31.0); Mean Platelet Volume 10.2 fL (7.4-10.4); Platelet Count 102 10^3/uL (130-400); Red Cell Dist. Width 14.8 % (11.5-14.5); White Blood Cell Count 3.9 10^3/uL (4.8-10.8)
[2024-12-14 07:10] VITALS: BP 126/63
[2024-12-14 07:19] LABS: Glucose - Point of Care 236 mg/dl (70-99)
[2024-12-14] MEDS: NOVOLOG FLEXPEN-MODERATE RESISTANCE 3 UNITS SC (08:08)
[2024-12-14] MEDS: LANTUS 0.6 UNITS SC (08:08)
[2024-12-14 08:09] LABS: ALT (SGPT) 24 U/L (0-50); AST (SGOT) 24 U/L (17-59); Albumin 3.5 g/dl (3.5-5.0); Alkaline Phosphatase 210 U/L (38-126); Blood Urea Nitrogen 52 mg/dl (9-20); Calcium 8.8 mg/dl (8.4-10.2); Carbon Dioxide 32 mmol/L (22-30); Chloride 100 mmol/L (98-107); Estimated Creatinine Clearance 71 ml/min; Glucose 190 mg/dl (70-99); Magnesium 2.1 mg/dl (1.6-2.3); Potassium 3.8 mmol/L (3.5-5.1); Sodium 139 mmol/L (135-145); Total Bilirubin 1.1 mg/dl (0.2-1.3); Total Protein 6.5 g/dl (6.3-8.2); eGFR 56.13
[2024-12-14] MEDS: TOPROL XL 75 MG PO ×2 (08:09→20:56)
[2024-12-14] MEDS: ROCALTROL 0.25 MCG PO (08:09)
[2024-12-14] MEDS: FARXIGA 10 MG PO (08:09)
[2024-12-14] MEDS: CARDIZEM CD 180 MG PO (08:09)
[2024-12-14] MEDS: NEURONTIN 300 MG PO ×2 (08:09→20:56)
[2024-12-14] MEDS: XIFAXAN 550 MG PO ×2 (08:10→20:56)
[2024-12-14] MEDS: ALDACTONE 25 MG PO (08:10)
[2024-12-14] MEDS: ASPIR LOW (ENTERIC COATED) 81 MG PO (08:10)
--- NOTE | 2024-12-14 08:10 | W.PN.HOSP.TC ---
Today's Communication/Plan
-
- cont diuresis
- pt/ot
Assessment / Plan
Assessment / Plan
IMPRESSION:
64yo M [facility] HFpEF (EF 55-60%), aflutter, paroxysmal SVT, PAD, HTN, HLD, IDDM, CKD stage IIIa, alcoholic liver cirrhosis, b/l LE lymphedema presented to [facility] ED on 12/08 for 'fluid buildup.' Pt reports his legs feel more swollen, he is more dyspneic,
and has a pressure midchest.
PLAN:
Acute hypoxic respiratory failure
Possible acute on chronic HFpEF exacerbation
- unlikely due to decompensated cirrhosis d/t small volume ascites on CT abd/pelvis
- ? pneumonia vs atelectasis on CT abd/pelvis - less likely pna d/t absence of infectious signs/sx-- IS
- considering R heart cath to assess volume status
- LE doppler: Examination is technically difficult and significantly limited with severe edema bilaterally. As described above, no evidence of deep venous thrombosis within the visualized veins, but a limited examination.
- 08/07/24 echo: EF 55-60%
- follows w Dr. Blaise Mcfarland ([facility])
- CXR: Extremely low lung volumes. Cardiomegaly, unchanged. Pulmonary vascularity at least top normal, cannot exclude mild CHF versus acute pulmonary edema.
- proBNP wnl
- troponin undetectable
- abg reassuring
- keep Mg>2, K>4
- I/O's
- daily weights
- IV lasix
- cont home spironolactone, metoprolol
- appreciate pulmonary input
Constipation
- colace
Alcoholic liver cirrhosis
- follows w Dr. Garrett
- cont xifaxin
- PT/INR/PTT wnl
Urinary Retention secondary to BPH
- cont home tamsulosin
- duran
Normocytic anemia
Thrombocytopenia
- monitor
- PT/INR/PTT wnl
Aflutter
Paroxysmal SVT
- cont home diltiazem
- tele
IDDM
- cont home insulin 60u degludec daily, 22ssi novolog
- cont home jardiance
HTN/HLD
- cont statin, metoprolol
Hypothyroidism
- cont home levothyroxine
CKD stage 3a
- avoid nephrotoxic agents
- follows w Dr. Velazquez
- appreciate nephrology input
Diet: diabetic
DVT ppx: SCDs
Code status: FULL CODE
Anticipated Discharge: > 48 hours
Subjective/Interval History
-
Date of Service: December 14, 2024
No acute overnight events.
Objective Data
-
Labs:
Laboratory Results
12/13/24 12/14/24
23:50 06:19
WBC 3.9 L
Hgb 8.9 L
Hct 27.9 L
Plt Count 102 L
Sodium 139 139
Potassium 3.8 3.8
Chloride 101 100
Carbon Dioxide 33 H 32 H
BUN 53 H 52 H
Creatinine 1.3 1.4 H
Glucose 226 H 190 H
Calcium 8.8 8.8
Total Bilirubin 1.1
AST 24
ALT 24
Alkaline Phosphatase 210 H
Vital Signs:
Vital Signs
Temp Pulse Resp BP Pulse Ox
98.4 F 61 16 140/62 96
12/14/24 03:20 12/14/24 03:20 12/14/24 03:20 12/14/24 03:20 12/14/24 03:20
I&O
12/13/24 12/14/24 12/15/24
06:59 06:59 06:59
Intake Total 2180 / 2180 1150 / 1150
Output Total 3525 / 3525 7500 / 7500
Balance -1345 / -1345 -6350 / -6350
Review of Systems
-
History Source: Patient
Constitutional: Reports No Symptoms
Respiratory: Reports Trouble Breathing
Cardiac: Reports No Symptoms
Abdomen/GI: Reports No Symptoms
Musculoskeletal: Reports Edema
Neuro: Reports No Symptoms
Physical Exam
-
General: Well Developed, Well Nourished and Morbidly Obese
HEENT: Normocephalic, Atraumatic and Oxygen
Respiratory: Accessory Resp Muscle Use and Decreased Breath Sounds
Cardiac: Regular Rhythm and S1/S2
GI: Soft, Nontender, Nondistended and Normal Bowel Sounds
Musculoskeletal: No Clubbing, No Cyanosis, Edema, Right Lower Extrem and Edema, Left Lower Extrem
Skin: Warm and Dry
Neuro: Awake, Alert and Oriented
Psych: Calm
[2024-12-14] MEDS: KCL 40 MEQ PO (08:17)
[2024-12-14] MEDS: DILAUDID 8 MG PO ×2 (08:17→20:56)
--- NOTE | 2024-12-14 08:59 | W.PN.PUL3 ---
Today's Communication / Plan
-
7 kg diuresis noted with subjective improvement
Chest x-ray consistent with continued pulmonary edema
Continue to wean oxygen as able
Patient may require oxygen therapy at time of discharge
When discussed pulmonary follow-up for oxygen requirement, optimization of pulmonary status, possible sleep apnea workup, patient not sure he will be able to follow-up
Our outpatient follow-up information left in chart
Otherwise we will sign off. Please call with questions
Assessment
-
#1. Acute hypoxic respiratory failure.
- Responded well to supplemental oxygen, currently 96 to 98% on 3 L, remains on 3 L
- Etiology of hypoxia appears to be volume overload with pulmonary edema as well as significant bilateral atelectasis lower lobes.
- Patient is afebrile, has normal white count, no cough or expectoration, pneumonia is less likely
- Patient is morbidly obese, mostly bedbound, has underlying cirrhosis also along with significant anasarca, all of these things are contributing to poor ventilation and resultant atelectasis
- VBG is reassuring, 7.43, 44. No evidence of CO2 retention. No indication for CPAP or BiPAP therapy.
- Continue aggressive diuresis as you are doing with IV Bumex, Farxiga as well as Aldactone. 7 kg diuresis noted
- Incentive spirometry.
- Increase activity as tolerated, sit in chair as tolerated. Unfortunately patient requires assistance to get out of bed. This is chronic
- Patient has never smoked. No prior history of COPD/asthma or emphysema. No wheezing on exam. Chest exam appears to be improved today
- ESS score is low. May consider sleep study as outpatient to evaluate for any sleep disordered breathing
- Unfortunately, when discussing follow-up in the pulmonary office with oxygen testing and possible sleep study, patient is not agreeable
#2. Acute on chronic heart failure with preserved ejection fraction.
- Patient has significant anasarca with volume overload.
- Cirrhosis is also contributing to volume overload. Albumin however is near normal at 3.5.
- Echocardiogram reviewed, right sided pulmonary artery pressure could not be assessed due to technical challenges. Right ventricular function and size appeared normal making significant pulmonary hypertension less likely.
- However if patient develops WALDO despite being volume overloaded, may consider right heart catheterization for further evaluation
- Continue diuretics, nephrology service on case. Negative fluid status is target. Her weight is down 6 kg since admission
- Chest x-ray continues to be consistent with pulmonary edema. Continue with aggressive diuresis as tolerates
- Weight has decreased 7 kg since admission
Other medical diagnoses:
- Anemia
- Paroxysmal SVT
- DM
- HTN/HLD
- CKD stage III
- Hypothyroidism
- Pancreatic lesion, s/p recent fine-needle aspiration. Currently being worked up
We will sign off. Please call with questions
Data:
CXR 11/2024: Extremely low lung volumes.
Cardiomegaly, unchanged.
Pulmonary vascularity at least top normal, cannot exclude mild CHF versus acute pulmonary edema.
CT Abd/pelvis 11/2024: Small volume ascites, without significant change.
Hepatic cirrhotic morphology, splenomegaly and some perisplenic varices again seen. Heterogeneous appearance of the liver limited with this imaging modality for space-occupying lesion.
Cholelithiasis. Small pancreatic body and tail cystic lesions better appreciated on prior MRI.
Suggest follow-up MRI with contrast for pancreatic lesions and for more complete evaluation of liver.
Significantly increased bilateral lower lobe consolidations which although most likely represent atelectasis, pneumonia cannot be excluded.
Limited evaluation of intestinal tract without oral contrast, without intestinal obstruction or free air.
Marked widespread bilateral abdominal wall edematous changes, significantly increased from prior CT.
ECHO 07/2024: Normal biventricular size and systolic function without regional wall motion abnormality.
No significant valvular disease.
Right heart pressures could not be determined.
No pericardial effusion.
No significant change since the prior study of 02/21/2024.
Subjective Data
-
Date of Service:
Date of Service: December 14, 2024
Subjective:
Patient continues to improve subjectively. Complaining of less abdominal fullness, denies chest pain. Denies cough, nausea, diarrhea. Diuresis continues
Objective Data
Data Reviewed
Vital Signs / I&O / Oxygen:
Vital Signs
Temp Pulse Resp BP Pulse Ox
97.8 F 61 20 126/63 94
12/14/24 07:10 12/14/24 07:10 12/14/24 07:10 12/14/24 07:10 12/14/24 07:10
Intake and Output
12/13/24 12/14/24 12/15/24
06:59 06:59 06:59
Intake Total 2180 / 2180 1150 / 1150
Output Total 3525 / 3525 7500 / 7500
Balance -1345 / -1345 -6350 / -6350
SaO2 94
Nasal Cannula flow liters per 3
minute
Physical Exam
General: Comfortable
HEENT: Normocephalic, Anicteric and Other (Large neck)
Cardiovascular: S1-S2, Regular Rhythm, Murmur (n) and Rub (n)
Respiratory: Wheeze (n), Crackles (n) and Rhonchi (n)
GI: Soft, Non Distended (Obese) and Non Tender
Neurology: Awake, Alert, Oriented and No Motor Deficits (Profoundly weak, cannot lift up legs. Requires assistance to sit up)
Skin: Other (Chronic venous stasis changes right lower extremity, left AKA, chronic lymphedema)
Labs/Micro/Reports
Lab Data
12/14/24 06:19
12/14/24 06:19
--- NOTE | 2024-12-14 10:51 | W.PN.NEPH.PH ---
Today's Communication / Plan
-
Decrease Lasix drip dose to 6/h
Assessment/Plan
-
IMP:
possible HFpEF - acute on chronic
CKD 3a cr 1.2-1.4
Type II DM
ETOH Cirrhosis
Lymphedema
Obesity, BMI 46
Intraductal papillary mucinous neoplasm -pancreatic cyst
Anemia
Hypothyroidism
h/o Urinary retention-BPH
Severe PAD, S/P left AKA
HLD
PLan:
A/w sob, 20lbs gain in last 2months more so in last 1 week failed increased dose of diuretics out pt
Wt is improving but slowly
cont lasix drip to 10mg/hr and likely add metolazone today
reviewed imp of FR 48ounces/day, pt was not following even at home
remains on duran for h/o retention, cont high dose flomax
Spironolactone to 25mg daily
stable renal function at baseline, cont Farxiga
Bp stable on CCB, low dose Aldactone
Volume status improving
-6 L 24 hours
Decrease Lasix drip to 6/h
-
-
Date of Service: December 14, 2024
CC / HPI / ROS
-
Chief Complaint:
CKD
History of Present Illness:
cr stable at 1.3, k normal
Review of Systems:
remains on O2, volume status improving
no cp
no n/v
Labs
-
Labs:
WBC 3.9 10^3/uL (4.8-10.8) L 12/14/24 06:19
RBC 3.10 10^6/uL (4.70-6.10) L 12/14/24 06:19
Hgb 8.9 g/dL (13.0-18.0) L 12/14/24 06:19
Hct 27.9 % (39.0-52.0) L 12/14/24 06:19
Plt Count 102 10^3/uL (130-400) L 12/14/24 06:19
Sodium 139 mmol/L (135-145) 12/14/24 06:19
Potassium 3.8 mmol/L (3.5-5.1) 12/14/24 06:19
Chloride 100 mmol/L (98-107) 12/14/24 06:19
Carbon Dioxide 32 mmol/L (22-30) H 12/14/24 06:19
BUN 52 mg/dl (9-20) H 12/14/24 06:19
Creatinine 1.4 mg/dL (0.7-1.3) H 12/14/24 06:19
eGFR 56.13 12/14/24 06:19
Glucose 190 mg/dl (70-99) H 12/14/24 06:19
Calcium 8.8 mg/dl (8.4-10.2) 12/14/24 06:19
Msj-P-Dcilihdhmwq Pept 512 pg/ml 12/08/24 08:51
Albumin 3.5 g/dl (3.5-5.0) 12/14/24 06:19
Physical Exam
-
Vital Signs:
Vital Signs
Temp Pulse Resp BP Pulse Ox
97.8 F 61 20 126/63 94
12/14/24 07:10 12/14/24 07:10 12/14/24 07:10 12/14/24 07:10 12/14/24 07:10
Cardiovascular:: Regular rate and rhythm
Respiratory:: Bilateral: CTA (decreased BS)
Lung Excursion:: Normal
Abdomen:: Distended
Extremity Edema:: +3: Right:
Duran Catheter: Yes
Other Findings::
left bka-edematous stump
[2024-12-14 11:45] VITALS: BP 135/60
[2024-12-14 12:00] LABS: Glucose - Point of Care 285 mg/dl (70-99)
[2024-12-14] MEDS: NOVOLOG FLEXPEN-MODERATE RESISTANCE 5 UNITS SC ×2 (12:21→17:31)
[2024-12-14] MEDS: FERRLECIT 110 MG IV (14:21)
[2024-12-14 15:29] VITALS: BP 139/65
--- NOTE | 2024-12-14 15:50 | CM ---
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 Patient would like to return to [facility] with
[facility] as he has had them for many years. CM will continue to follow for discharge planning needs.
Plan; return to [facility] with [facility]; [facility] will need referral vs SNF pending therapy recommendations.
[2024-12-14 16:30] LABS: Glucose - Point of Care 295 mg/dl (70-99)
[2024-12-14] MEDS: VITAMIN B-12 1000 MCG PO (17:31)
[2024-12-14 19:07] VITALS: BP 133/59
[2024-12-14] MEDS: LIPITOR 40 MG PO (21:02)
[2024-12-14] MEDS: FLOMAX 0.8 MG PO (21:02)
[2024-12-14 21:48] LABS: Glucose - Point of Care 209 mg/dl (70-99)
[2024-12-14 23:00] VITALS: BP 131/62
[2024-12-14] MEDS: LASIX 50 IV (23:20)
[2024-12-15 03:18] VITALS: BP 124/61
[2024-12-15 05:34] VITALS: BMI 42.0
[2024-12-15] MEDS: SYNTHROID 137 MCG PO (06:21)
[2024-12-15 07:14] LABS: Hematocrit 27.2 % (39.0-52.0); Mean Corp Hgb Conc. 33.1 g/dL (33.0-37.0); Mean Corpuscular Hgb 29.5 pg (27.0-31.0); Mean Corpuscular Volume 89.2 fL (80.0-94.0); Mean Platelet Volume 10.5 fL (7.4-10.4); Platelet Count 101 10^3/uL (130-400); Red Blood Cell Count 3.05 10^6/uL (4.70-6.10); Red Cell Dist. Width 14.8 % (11.5-14.5)
[2024-12-15 07:18] LABS: Glucose - Point of Care 179 mg/dl (70-99)
[2024-12-15 07:39] LABS: ALT (SGPT) 22 U/L (0-50); AST (SGOT) 23 U/L (17-59); Albumin 3.5 g/dl (3.5-5.0); Alkaline Phosphatase 215 U/L (38-126); Blood Urea Nitrogen 52 mg/dl (9-20); Calcium 9.2 mg/dl (8.4-10.2); Carbon Dioxide 38 mmol/L (22-30); Chloride 96 mmol/L (98-107); Estimated Creatinine Clearance 69 ml/min; Glucose 147 mg/dl (70-99); Potassium 3.6 mmol/L (3.5-5.1); Sodium 138 mmol/L (135-145); Total Protein 6.5 g/dl (6.3-8.2); eGFR 56.13
[2024-12-15 07:47] VITALS: BP 127/58
--- NOTE | 2024-12-15 08:02 | W.PN.NEPH.PH ---
Today's Communication / Plan
-
stop lasix
diamox x 1
Assessment/Plan
-
IMP:
possible HFpEF - acute on chronic
CKD 3a cr 1.2-1.4
Type II DM
ETOH Cirrhosis
Lymphedema
Obesity, BMI 46
Intraductal papillary mucinous neoplasm -pancreatic cyst
Anemia
Hypothyroidism
h/o Urinary retention-BPH
Severe PAD, S/P left AKA
HLD
PLan:
A/w sob, 20lbs gain in last 2months more so in last 1 week failed increased dose of diuretics out pt
Wt is improving but slowly
cont lasix drip to 10mg/hr and likely add metolazone today
reviewed imp of FR 48ounces/day, pt was not following even at home
remains on duran for h/o retention, cont high dose flomax
Spironolactone to 25mg daily
stable renal function at baseline, cont Farxiga
Bp stable on CCB, low dose Aldactone
Volume status improving
dc Lasix drip
diamox x 1 for bicarb 38
-
-
Date of Service: December 15, 2024
CC / HPI / ROS
-
Chief Complaint:
CKD
History of Present Illness:
cr stable at 1.3, k normal
Review of Systems:
remains on O2, volume status improving
no cp
no n/v
Labs
-
Labs:
WBC 4.0 10^3/uL (4.8-10.8) L 12/15/24 06:19
RBC 3.05 10^6/uL (4.70-6.10) L 12/15/24 06:19
Hgb 9.0 g/dL (13.0-18.0) L 12/15/24 06:19
Hct 27.2 % (39.0-52.0) L 12/15/24 06:19
Plt Count 101 10^3/uL (130-400) L 12/15/24 06:19
Sodium 138 mmol/L (135-145) 12/15/24 06:19
Potassium 3.6 mmol/L (3.5-5.1) 12/15/24 06:19
Chloride 96 mmol/L (98-107) L 12/15/24 06:19
Carbon Dioxide 38 mmol/L (22-30) H 12/15/24 06:19
BUN 52 mg/dl (9-20) H 12/15/24 06:19
Creatinine 1.4 mg/dL (0.7-1.3) H 12/15/24 06:19
eGFR 56.13 12/15/24 06:19
Glucose 147 mg/dl (70-99) H 12/15/24 06:19
Calcium 9.2 mg/dl (8.4-10.2) 12/15/24 06:19
Dmz-Z-Ngugrugdlfr Pept 512 pg/ml 12/08/24 08:51
Albumin 3.5 g/dl (3.5-5.0) 12/15/24 06:19
Physical Exam
-
Vital Signs:
Vital Signs
Temp Pulse Resp BP Pulse Ox
98.4 F 85 18 127/58 95
12/15/24 07:47 12/15/24 07:47 12/15/24 07:47 12/15/24 07:47 12/15/24 07:47
Cardiovascular:: Regular rate and rhythm
Respiratory:: Bilateral: CTA (decreased BS)
Lung Excursion:: Normal
Abdomen:: Distended
Extremity Edema:: +3: Right:
Duran Catheter: Yes
Other Findings::
left bka-edematous stump
[2024-12-15] MEDS: LANTUS 0.6 UNITS SC (08:30)
[2024-12-15] MEDS: NOVOLOG FLEXPEN-MODERATE RESISTANCE 1 UNITS SC (08:30)
[2024-12-15] MEDS: CARDIZEM CD 180 MG PO (08:30)
[2024-12-15] MEDS: XIFAXAN 550 MG PO ×2 (08:31→19:41)
[2024-12-15] MEDS: ASPIR LOW (ENTERIC COATED) 81 MG PO (08:31)
[2024-12-15] MEDS: ROCALTROL 0.25 MCG PO (08:31)
[2024-12-15] MEDS: NEURONTIN 300 MG PO ×2 (08:31→19:41)
[2024-12-15] MEDS: ALDACTONE 25 MG PO (08:31)
[2024-12-15] MEDS: FARXIGA 10 MG PO (08:31)
[2024-12-15] MEDS: TOPROL XL 75 MG PO ×2 (08:31→19:40)
[2024-12-15] MEDS: DIAMOX 125 MG PO (08:35)
[2024-12-15] MEDS: DILAUDID 8 MG PO ×2 (09:30→19:54)
[2024-12-15 11:14] LABS: Glucose - Point of Care 299 mg/dl (70-99)
--- NOTE | 2024-12-15 11:19 | W.PN.HOSP.TC ---
Today's Communication/Plan
-
Diuresis per nephrology
Continue monitoring weight/creatinine
Discharge planning, patient friend to bring wheelchair to be assessed for home physical therapy
Assessment / Plan
Assessment / Plan
SOB with acute hypoxic respiratory insufficiency--on 2-3L O2-- etiologies likely exacerbation of HFpEF (despite pro BNP of 512), Decompensated alcoholic liver cirrhosis not likely as INR WNL and no ascites to tap, gradual weight gain from
immobility? ineffective meds and dose change needed?--apprec renal--cont diuresis, patient was on Lasix drip has been switched to IV pushes. -patient have good urinary output and weight trending down rapidly.
Urinary Retention secondary to BPH--had st cath-- duran placed at this time--cont flomax
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
Chronic anemia--Normocytic anemia with thrombocytopenia--likely from liver disease--follow
Paroxysmal SVT/Aflutter-- cont home diltiazem
type 2 IDDM--cont home insulin 60u degludec daily, 22ssi novolog-- cont home Jardiance
HTN/HLD- cont statin, metoprolol
Hypothyroidism- cont home levothyroxine
CKD stage 3a-- avoid nephrotoxic agents--apprec renal consult
History of left BKA -this has been done 5 years back. Patient was provided prosthetic leg which has not been able to have it for roughly 4 years due to change in girth of the stump site. Currently patient uses a sliding board discussion and he can
self transfer himself to wheelchair. This was attempted here with physical therapy although patient declined as he does not have the wheelchair that he needs. Discussed with patient that in order to make sure patient can safely be discharged back
to preadmission level care we need the wheelchair. Friend/acquaintance likely to bring wheelchair on Tuesday t
DVT proph-- SCDs
Code status--FULL CODE
Care plan discussed with nephrology at bedside.
Anticipated Discharge: 24 - 48 hours
Subjective/Interval History
-
Date of Service: December 15, 2024
Subjective feeling better
Remains on oxygen through nasal cannula
No abdominal pain/nausea/vomiting
Objective Data
-
Labs:
Laboratory Results
12/15/24
06:19
WBC 4.0 L
Hgb 9.0 L
Hct 27.2 L
Plt Count 101 L
Sodium 138
Potassium 3.6
Chloride 96 L
Carbon Dioxide 38 H
BUN 52 H
Creatinine 1.4 H
Glucose 147 H
Calcium 9.2
Total Bilirubin 1.0
AST 23
ALT 22
Alkaline Phosphatase 215 H
Vital Signs:
Vital Signs
Temp Pulse Resp BP Pulse Ox
98.4 F 85 18 127/58 95
12/15/24 07:47 12/15/24 08:31 12/15/24 07:47 12/15/24 08:31 12/15/24 07:47
I&O
12/14/24 12/15/24 12/16/24
06:59 06:59 06:59
Intake Total 1150 / 1150 847.2 / 847.2
Output Total 7500 / 7500 6700 / 6700
Balance -6350 / -6350 -5852.8 / -5852.8
Review of Systems
-
Respiratory: Reports No Symptoms
Cardiac: Reports No Symptoms
Abdomen/GI: Reports No Symptoms
Physical Exam
-
General: Well Developed, Well Nourished and Morbidly Obese
HEENT: Oxygen
Cardiac: Regular Rhythm and S1/S2
GI: Soft, Nontender, Nondistended and Normal Bowel Sounds
Musculoskeletal: No Clubbing, No Cyanosis, Edema, Right Lower Extrem, Edema, Left Lower Extrem and Other (Left BKA)
Neuro: Awake, Alert and Oriented
Psych: Calm
[2024-12-15 11:39] VITALS: BP 124/50
[2024-12-15] MEDS: NOVOLOG FLEXPEN-MODERATE RESISTANCE 5 UNITS SC ×2 (12:00→17:09)
[2024-12-15] MEDS: FERRLECIT 110 MG IV (14:00)
[2024-12-15 15:26] VITALS: BP 130/58
[2024-12-15 16:52] LABS: Glucose - Point of Care 284 mg/dl (70-99)
[2024-12-15] MEDS: VITAMIN B-12 1000 MCG PO (17:09)
[2024-12-15 19:37] VITALS: BP 125/56
[2024-12-15] MEDS: FLOMAX 0.8 MG PO (19:40)
[2024-12-15] MEDS: LIPITOR 40 MG PO (19:41)
[2024-12-15 21:44] LABS: Glucose - Point of Care 202 mg/dl (70-99)
[2024-12-15 23:11] VITALS: BP 126/59
[2024-12-16 03:02] VITALS: BP 115/53
[2024-12-16 06:00] VITALS: BMI 41.4
[2024-12-16 06:52] LABS: Hematocrit 27.5 % (39.0-52.0); Hemoglobin 9.1 g/dL (13.0-18.0); Mean Corp Hgb Conc. 33.1 g/dL (33.0-37.0); Mean Corpuscular Hgb 29.4 pg (27.0-31.0); Mean Corpuscular Volume 88.7 fL (80.0-94.0); Mean Platelet Volume 10.3 fL (7.4-10.4); Platelet Count 105 10^3/uL (130-400); White Blood Cell Count 4.1 10^3/uL (4.8-10.8)
[2024-12-16 07:00] VITALS: BP 133/62
[2024-12-16 07:47] LABS: ALT (SGPT) 22 U/L (0-50); AST (SGOT) 22 U/L (17-59); Albumin 3.6 g/dl (3.5-5.0); Alkaline Phosphatase 201 U/L (38-126); Blood Urea Nitrogen 53 mg/dl (9-20); Carbon Dioxide 35 mmol/L (22-30); Chloride 96 mmol/L (98-107); Estimated Creatinine Clearance 64 ml/min; Glucose 172 mg/dl (70-99); Magnesium 2.2 mg/dl (1.6-2.3); Potassium 3.6 mmol/L (3.5-5.1); Sodium 137 mmol/L (135-145); Total Protein 6.5 g/dl (6.3-8.2); eGFR 51.67
[2024-12-16 07:55] LABS: Glucose - Point of Care 268 mg/dl (70-99)
[2024-12-16] MEDS: FARXIGA 10 MG PO (08:05)
[2024-12-16] MEDS: ROCALTROL 0.25 MCG PO (08:05)
[2024-12-16] MEDS: CARDIZEM CD 180 MG PO (08:05)
[2024-12-16] MEDS: DILAUDID 8 MG PO (08:05)
[2024-12-16] MEDS: SYNTHROID 137 MCG PO (08:05)
[2024-12-16] MEDS: ALDACTONE 25 MG PO (08:06)
[2024-12-16] MEDS: XIFAXAN 550 MG PO (08:06)
[2024-12-16] MEDS: NEURONTIN 300 MG PO (08:06)
[2024-12-16] MEDS: ASPIR LOW (ENTERIC COATED) 81 MG PO (08:06)
[2024-12-16] MEDS: TOPROL XL 75 MG PO (08:06)
[2024-12-16] MEDS: NOVOLOG FLEXPEN-MODERATE RESISTANCE 5 UNITS SC (08:07)
[2024-12-16] MEDS: LANTUS 0.6 UNITS SC (08:07)
[2024-12-16] MEDS: COLACE 100 MG PO (09:05)
[2024-12-16 11:00] VITALS: BP 119/54
[2024-12-16 11:29] LABS: Glucose - Point of Care 224 mg/dl (70-99)
[2024-12-16] MEDS: DESENEX/MITRAZOL/ZEASORB 1 APPLIC TOPICAL ×2 (11:30→20:33)
[2024-12-16] MEDS: NOVOLOG FLEXPEN-MODERATE RESISTANCE 3 UNITS SC (11:53)
[2024-12-16] MEDS: NOVOLOG FLEXPEN 5 UNITS SC (11:53)
--- NOTE | 2024-12-16 13:53 | W.PN.HOSP.TC ---
Today's Communication/Plan
-
see note
Assessment / Plan
Assessment / Plan
SOB with acute hypoxic respiratory insufficiency--on 2-3L O2-- etiologies likely exacerbation of HFpEF (despite pro BNP of 512), Decompensated alcoholic liver cirrhosis not likely as INR WNL and no ascites to tap, gradual weight gain from
immobility? ineffective meds and dose change needed?--apprec renal-patient was on Lasix drip and then pushes. Currently off of direuessis. Patient got dose of Diamox to help contraction alkalosis from Lasix
Aspiration episode -patient was having mashed potatoes/peas when choked on the food, most of the things patient coughed out although feels may have some food stuck and went into the lungs. Chest x-ray did not show any atelectasis suggestive of
bronchial obstruction. Doing CT chest without contrast, if truly endobronchial aspiration happen we will require pulmonology to be involved for possible bronch. Of note I have discussed this of consult with on-call pulmonology briefly. Patient
not in any respiratory distress right now, feeling some discomfort only. Covering with empiric Unasyn for possible pneumonitis and can be discontinued if not warranted.
Urinary Retention secondary to BPH--had st cath-- duran placed at this time--cont flomax
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
Chronic anemia--Normocytic anemia with thrombocytopenia--likely from liver disease--follow
Paroxysmal SVT/Aflutter-- cont home diltiazem
type 2 IDDM--cont home insulin 60u degludec daily, added novolog 5uAC, takes 22u pre-meal on review -- cont home Jardiance
HTN/HLD- cont statin, metoprolol
Hypothyroidism- cont home levothyroxine
CKD stage 3a-- avoid nephrotoxic agents--apprec renal consult
History of left BKA -this has been done 5 years back. Patient was provided prosthetic leg which has not been able to have it for roughly 4 years due to change in girth of the stump site. Currently patient uses a sliding board discussion and he can
self transfer himself to wheelchair. This was attempted here with physical therapy although patient declined as he does not have the wheelchair that he needs. Discussed with patient that in order to make sure patient can safely be discharged back
to preadmission level care we need the wheelchair. Friend/acquaintance likely to bring wheelchair on Tuesday t
DVT proph-- SCDs
Code status--FULL CODE
Care plan discussed with nephrology at bedside.
Total time spent : 52 mins
Anticipated Discharge: 24 - 48 hours
Subjective/Interval History
-
Date of Service: December 16, 2024
Patient had episode of aspiration on food
Dyspnea was morning in the better although patient feeling dyspneic after this
some dry cough
Objective Data
-
Labs:
Laboratory Results
12/16/24
06:11
WBC 4.1 L
Hgb 9.1 L
Hct 27.5 L
Plt Count 105 L
Sodium 137
Potassium 3.6
Chloride 96 L
Carbon Dioxide 35 H
BUN 53 H
Creatinine 1.5 H
Glucose 172 H
Calcium 9.0
Total Bilirubin 1.0
AST 22
ALT 22
Alkaline Phosphatase 201 H
Vital Signs:
Vital Signs
Temp Pulse Resp BP Pulse Ox
97.3 F 64 14 119/54 97
12/16/24 11:00 12/16/24 11:00 12/16/24 11:00 12/16/24 11:00 12/16/24 11:00
I&O
12/15/24 12/16/24 12/17/24
06:59 06:59 06:59
Intake Total 847.2 / 847.2 1550 / 1550
Output Total 6700 / 6700 3100 / 3100
Balance -5852.8 / -5852.8 -1550 / -1550
Review of Systems
-
Respiratory: Reports Cough and Trouble Breathing
Cardiac: Reports No Symptoms
Abdomen/GI: Reports No Symptoms
Physical Exam
-
General: Well Developed, Well Nourished and Morbidly Obese
HEENT: Oxygen
Cardiac: Regular Rhythm and S1/S2
GI: Soft, Nontender, Nondistended and Normal Bowel Sounds
Musculoskeletal: No Clubbing, No Cyanosis, Edema, Right Lower Extrem, Edema, Left Lower Extrem and Other (Left BKA)
Neuro: Awake, Alert and Oriented
Psych: Calm
[2024-12-16 15:00] VITALS: BP 131/63
[2024-12-16] MEDS: UNASYN IV ×2 (15:01→20:27)
--- NOTE | 2024-12-16 15:25 | PTCARENOTE ---
pt had a chocking episode while eating his lunch, consuming mashed potatoes with peas, able to cough it up most of, no respiratory distress but still feels as something stuck. Dr Ramirez made aware, xray ordered and CT scan. lungs clear on
auscultation; pt keep clearing his throat but no SOB, or complaints of respiratory.
--- NOTE | 2024-12-16 15:57 | W.PN.NEPH.PH ---
Today's Communication / Plan
-
Holding diuretic
Assessment/Plan
-
IMP:
possible HFpEF - acute on chronic
CKD 3a cr 1.2-1.4
Type II DM
ETOH Cirrhosis
Lymphedema
Obesity, BMI 46
Intraductal papillary mucinous neoplasm -pancreatic cyst
Anemia
Hypothyroidism
h/o Urinary retention-BPH
Severe PAD, S/P left AKA
HLD
PLan:
A/w sob, 20lbs gain in last 2months more so in last 1 week failed increased dose of diuretics out pt
Wt is improving but slowly
cont lasix drip to 10mg/hr and likely add metolazone today
reviewed imp of FR 48ounces/day, pt was not following even at home
remains on duran for h/o retention, cont high dose flomax
Spironolactone to 25mg daily
stable renal function at baseline, cont Farxiga
Bp stable on CCB, low dose Aldactone
Volume status improving
dc Lasix drip
diamox x 1 for bicarb 38 yesterday improved 35.
Continue to hold diuretics will reinitiate tomorrow as I discussed with the patient is only so much fluid will be able to remove without electrolyte imbalances.
Weights continue to improve 17 kg in 3 days.
Chest x-ray noted CAT scan pending review
-
-
Date of Service: December 16, 2024
CC / HPI / ROS
-
Chief Complaint:
CKD
History of Present Illness:
cr stable at 1.3�1.5
Review of Systems:
Off oxygen, volume status improving
no cp
no n/v
Patient feels as though he aspirated lunch he is status post CAT scan hemodynamically stable
Labs
-
Labs:
WBC 4.1 10^3/uL (4.8-10.8) L 12/16/24 06:11
RBC 3.10 10^6/uL (4.70-6.10) L 12/16/24 06:11
Hgb 9.1 g/dL (13.0-18.0) L 12/16/24 06:11
Hct 27.5 % (39.0-52.0) L 12/16/24 06:11
Plt Count 105 10^3/uL (130-400) L 12/16/24 06:11
Sodium 137 mmol/L (135-145) 12/16/24 06:11
Potassium 3.6 mmol/L (3.5-5.1) 12/16/24 06:11
Chloride 96 mmol/L (98-107) L 12/16/24 06:11
Carbon Dioxide 35 mmol/L (22-30) H 12/16/24 06:11
BUN 53 mg/dl (9-20) H 12/16/24 06:11
Creatinine 1.5 mg/dL (0.7-1.3) H 12/16/24 06:11
eGFR 51.67 12/16/24 06:11
Glucose 172 mg/dl (70-99) H 12/16/24 06:11
Calcium 9.0 mg/dl (8.4-10.2) 12/16/24 06:11
Zar-T-Lcypeaivrse Pept 512 pg/ml 12/08/24 08:51
Albumin 3.6 g/dl (3.5-5.0) 12/16/24 06:11
Physical Exam
-
Vital Signs:
Vital Signs
Temp Pulse Resp BP Pulse Ox
97.3 F 64 14 119/54 97
12/16/24 11:00 12/16/24 11:00 12/16/24 11:00 12/16/24 11:00 12/16/24 11:00
Cardiovascular:: Regular rate and rhythm
Respiratory:: Bilateral: CTA (decreased BS)
Lung Excursion:: Normal
Abdomen:: Distended
Extremity Edema:: +3: Right:
Duran Catheter: Yes
Other Findings::
left bka-edematous stump
[2024-12-16] MEDS: FERRLECIT 110 MG IV (16:19)
--- NOTE | 2024-12-16 17:19 | W.PN.UPDATE ---
Addendum entered and electronically signed by Mike Ramirez MD 12/16/24 18:53:
Discussed with instrument and controls technician GI and patient to be maintained strict NPO
ordering IV reglan 10mg q8hg x2 doses
GI will take to EGD tomorrow
Original Note:
Update Note
Progress Note Update
CT chest images reviewed and significant for contained in esophagus. Official read pending
making patient n.p.o.
GI consulted for evaluation as well.
[2024-12-16 18:24] LABS: Glucose - Point of Care 137 mg/dl (70-99)
[2024-12-16] MEDS: NOVOLOG FLEXPEN-MODERATE RESISTANCE SC (18:26)
[2024-12-16] MEDS: NOVOLOG FLEXPEN SC (18:26)
[2024-12-16] MEDS: VITAMIN B-12 PO (18:26)
[2024-12-16 19:13] VITALS: BP 132/59
[2024-12-16] MEDS: XIFAXAN PO (20:12)
[2024-12-16] MEDS: TOPROL XL PO (20:12)
[2024-12-16] MEDS: NEURONTIN PO (20:12)
[2024-12-16] MEDS: FLOMAX PO (20:13)
[2024-12-16] MEDS: LIPITOR PO (20:13)
[2024-12-16] MEDS: REGLAN 10 MG IV (20:27)
[2024-12-16 23:09] VITALS: BP 137/60
[2024-12-17] VITALS (10 sets, daily range): BP systolic 16–152; BP diastolic 56–70; BMI 41.3
[2024-12-17 00:28] LABS: Glucose - Point of Care 139 mg/dl (70-99)
[2024-12-17] MEDS: UNASYN IV ×4 (02:13→20:14)
[2024-12-17] MEDS: REGLAN 10 MG IV (04:00)
[2024-12-17] MEDS: SYNTHROID PO (04:07)
[2024-12-17 06:12] LABS: Glucose - Point of Care 131 mg/dl (70-99)
[2024-12-17 06:27] LABS: Hemoglobin 9.1 g/dL (13.0-18.0); Mean Corp Hgb Conc. 32.5 g/dL (33.0-37.0); Mean Corpuscular Hgb 29.4 pg (27.0-31.0); Mean Corpuscular Volume 90.3 fL (80.0-94.0); Mean Platelet Volume 10.5 fL (7.4-10.4); Platelet Count 104 10^3/uL (130-400); Red Cell Dist. Width 14.9 % (11.5-14.5); White Blood Cell Count 5.6 10^3/uL (4.8-10.8)
[2024-12-17 06:46] LABS: ALT (SGPT) 23 U/L (0-50); AST (SGOT) 27 U/L (17-59); Albumin 3.5 g/dl (3.5-5.0); Alkaline Phosphatase 217 U/L (38-126); Blood Urea Nitrogen 51 mg/dl (9-20); Calcium 9.3 mg/dl (8.4-10.2); Carbon Dioxide 34 mmol/L (22-30); Chloride 101 mmol/L (98-107); Estimated Creatinine Clearance 68 ml/min; Glucose 122 mg/dl (70-99); Magnesium 2.3 mg/dl (1.6-2.3); Potassium 3.2 mmol/L (3.5-5.1); Sodium 141 mmol/L (135-145); Total Bilirubin 1.2 mg/dl (0.2-1.3); Total Protein 6.5 g/dl (6.3-8.2); eGFR 56.13
[2024-12-17] MEDS: DESENEX/MITRAZOL/ZEASORB 1 APPLIC TOPICAL ×2 (07:55→20:13)
--- NOTE | 2024-12-17 08:22 | CON.GI ---
Addendum entered and electronically signed by Cata Wade MD 12/17/24 12:50:
I saw and examined the patient.
The CUBE MACHINE TENDER's note was reviewed and I agree with the note.
Comment: This is a 64-year-old male with past medical history as listed below including decompensated ETOH cirrhosis with prior history of hepatic encephalopathy, ascites, IPMN and rest as below who presented on 12/08 with shortness of breath and is
currently being treated for volume overload with possible CHF exacerbation and renal and pulmonary is also following. He sees Dr. Reid at [facility] for his cirrhosis. He sees Dr. Garrett for IPMN and he had EUS with FNA and ERCP with Dr. Garrett
09/2024 and does have a follow-up appointment with repeat MRI in March. Yesterday he had eaten breakfast without any problems but when he ate mashed potatoes and peas for lunch he felt that he choked on it and was unable to swallow secretions
and felt regurgitation he then had a CT chest which showed retained fluid and food in the thoracic esophagus with possible narrowing in the distal esophagus and probable aspiration pneumonia and was started on Unasyn and we were consulted. I spoke
to Dr. Mike Ramirez yesterday and since he had a large column of food concern for chronic food impaction told to give him Reglan which he received 2 doses of and he feels that the food has passed. He denies any symptoms of dysphagia prior to this
but on prior EUS and ERCP in September he was noted to have retained food in the stomach and duodenum.
Assessment and plan episode of food impaction after eating lunch but he feels that he passed it now and does not feel food stuck and is able to swallow secretions after receiving 2 doses of Reglan and prior to this has no symptoms of dysphagia but
there was possible narrowing noted on the CT chest in the distal esophagus with retained food and fluid in the thoracic esophagus. Will schedule him for endoscopy today and if there is evidence of stricture or ring will also dilate and remove any
retained food or fluid seen. There was no evidence of esophageal stricture or varices on prior EUS 09/2024. He does have evidence of retained food in the stomach and duodenum concerning for gastroparesis
2. IPMN he has an appointment in March for repeat MRI and follow-up with Dr. Garrett
3. alcohol cirrhosis with history of decompensation with hepatic encephalopathy and ascites continue Xifaxan and also is currently on diuretics for CHF exacerbation
Original Note:
Consultation
-
Date/Time Consultation Requested: 12/16/24 1716
Date/Time Consultation Performed: 12/17/24 0750
Requesting Provider: Dr. Ramirez
Performing Provider: Dr. Wade/MAY Woodard
Reason for Consultation: food impaction
Medical History
Chief Complaint / HPI
Chief Complaint: abnormal labs
History of Present Illness:
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
varices, afib/flutter, CHF, pacer, HTN, hypercholesterolemia, hypothyroidism, NIDDM with neuropathy and prior amputation, stage III CKD, PAD, anemia of chronic disease, paroxysmal SVT, BPH, CHF, constipation, urinary retention, significant
biliary and pancreatic duct dilatation status post EUS and ERCP with choledocholithiasis status post biliary sphincterotomy and balloon extraction with placement of plastic stent into the ventral pancreatic duct 10/15/2024, follows at [facility] for
chronic liver disease who presented to the emergency room on 12/08/2024 for 'fluid buildup' dyspnea, edema, and pressure in his mid chest. Patient was being treated for acute hypoxic respiratory insufficiency on 2 to 3 L of O2 either exacerbation of
HFpEF vs. cirrhosis. He had a 20 pound weight gain in the past 2 months. He failed increased dose of diuretics as an outpatient. He was on a Lasix drip. 48 ounce fluid restriction. And spironolactone. Yesterday he had an episode of choking on
mashed potatoes and peas yesterday afternoon when he choked. Patient coughed up food although he felt as if he had food stuck and went into his lungs. CT of the chest showed food material of fluid throughout the thoracic esophagus. With an
air-fluid level more superiorly. With possible narrowing of the GE junction. We are asked to evaluate for the same. The patient was given IV Reglan 10 mg every 8 x 2 doses. After speaking to the patient he states that yesterday morning he ate
oatmeal as well as scrambled eggs with bits of onion and peppers. He states he had no issues swallowing this and it went down fine. For lunch he states he ate mashed potatoes and peas and then all of a sudden he states he started 'choking'. He
states he got most of it up with vomiting and regurgitation however he did still feel the sensation as if something was stuck. He states that after medication he did feel this past. At the present time he no longer feels as if anything is stuck.
Currently he is on nasal cannula oxygen supplementation at 3 L. He has no signs of dyspnea or chest pain. He denies any nausea, vomiting or feeling of fullness. He remains NPO. He states he is never had any situation like this prior. He does
state on time to time he does feel a sensation of early satiety. On prior EUS 10/15/2024 he did have food residue found in the gastric body and antrum. Currently the patient denies any fevers, chills, nausea, vomiting. He is having daily bowel
movements. Last 1 was documented on 12/16/2024. He denies any abdominal pain. We did discuss a EGD and he is agreeable.
Past Medical History
Past Medical History: Arrhythmias (PSVT, aflutter), CHF, HTN, Hypercholesterolemia, Hypothyroidism, NIDDM (with neuropathy), Renal Failure (CKD stage III ) and Other (PAF, anemia of chronic disease, ETOH cirrhosis, BPH, chronic pain, lymphedema)
Past Surgical History: Cardiac (pacer) and Orthopedic (left above knee amputation)
Social History
Tobacco: Non-Smoker
Alcohol: Former (quit >12 years ago)
Drug: None
Personal: Other (sluice tender )
Living: Other (lives at [facility] with priests that assist with caregiving )
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
Family History
Family History: Other (? mother with liver disease but of bone cancer)
Allergies / Home Medications
Allergy/AdvReac Type Severity Reaction Status Date / Time
No Known Allergies Allergy Verified 10/09/24 13:29
�Medication �Instructions �Recorded
aspirin 81 mg tablet,delayed 81 mg PO DAILY Blood clot 09/25/19
release prevention/tx
atorvastatin 40 mg tablet 40 mg PO HS High cholesterol 09/25/19
calcitriol 0.25 mcg capsule 0.25 mcg PO DAILY Kidney Disease 09/25/19
insulin degludec 200 unit/mL (3 60 unit SC DAILY Diabetes 09/20/22
mL) subcutaneous pen (Tresiba
FlexTouch U-200 insulin)
magnesium oxide 500 mg PO DAILY Supplement 05/05/23
tdhopeeh-mf-jxcpk 300 mcg-K 60 1 tab PO DAILY Supplement 07/22/23
mcg-lycop 600 mcg-lutein 300 mcg
tablet (Centrum Silver Men)
rifaximin 550 mg tablet (Xifaxan) 550 mg PO BID Liver Issues 08/18/23
cyanocobalamin (vitamin B-12) 1,000 mcg PO QPM Supplement 09/02/23
1,000 mcg tablet
gabapentin 300 mg capsule 300 mg PO BID Neurological 09/02/23
Condition
levothyroxine 137 mcg tablet 137 mcg PO DAILY@0700 Thyroid 09/02/23
empagliflozin 10 mg tablet 10 mg PO DAILY CHF 1 month #30 tabs 02/26/24
(Jardiance)
tamsulosin 0.4 mg capsule 0.8 mg (2 x 0.4 mg) PO HS prostate 03/03/24
#30 caps
hydromorphone 8 mg tablet 8 mg PO TIDPRN PRN severe pain 08/06/24
insulin aspart U-100 100 unit/mL 22 sliding scale dose SC AC 08/06/24
(3 mL) subcutaneous pen (Novolog Diabetes
FlexPen U-100 Insulin aspart)
diltiazem HCl 180 mg 180 mg PO DAILY #30 caps 08/11/24
capsule,extended release 24 hr
bumetanide 1 mg tablet 2 mg PO DAILY Fluid 10/09/24
Retention/Swelling
metoprolol succinate 50 mg 75 mg PO BID Blood Pressure 10/09/24
tablet,extended release 24 hr
polyethylene glycol 3350 17 gram 17 g PO DAILYPRN PRN constipation 10/09/24
oral powder packet
spironolactone 25 mg tablet 12.5 mg (1/2 x 25 mg) PO DAILY #30 10/17/24
tabs
Review of Systems
-
All other systems: A 12 pt ROS was Negative except as stated above in HPI
Vital Signs
Temp Pulse Resp BP Pulse Ox
97.8 F 60 16 138/58 93
12/17/24 08:13 12/17/24 08:13 12/17/24 08:13 12/17/24 08:13 12/17/24 08:13
Physical Exam
Exam
General: No Apparent Distress
HEENT: Other (Nasal cannula oxygen supplementation at 3 L)
Respiratory: Clear (Decreased bases bilaterally)
Cardiac: Regular Rhythm
GI: Soft, Non Tender, Non Distended and Normal Bowel Sounds
Musculoskeletal: Other (Left AKA)
Skin: Warm and Dry
Neuro: AO x 3
Psych: Calm
Results
WBC 5.6 10^3/uL (4.8-10.8) 12/17/24 05:56
Hgb 9.1 g/dL (13.0-18.0) L 12/17/24 05:56
Hct 28.0 % (39.0-52.0) L 12/17/24 05:56
MCV 90.3 fL (80.0-94.0) 12/17/24 05:56
Plt Count 104 10^3/uL (130-400) L 12/17/24 05:56
Absolute Neuts (auto) 3.6 10^3/uL (1.4-6.5) 12/08/24 08:51
PT 15.9 Sec (11.4-14.6) H 12/08/24 17:11
INR 1.24 12/08/24 17:11
APTT 31.2 Sec (23.4-35.0) 12/08/24 17:11
Sodium 141 mmol/L (135-145) 12/17/24 05:56
Potassium 3.2 mmol/L (3.5-5.1) L 12/17/24 05:56
Chloride 101 mmol/L (98-107) 12/17/24 05:56
Carbon Dioxide 34 mmol/L (22-30) H 12/17/24 05:56
BUN 51 mg/dl (9-20) H 12/17/24 05:56
Creatinine 1.4 mg/dL (0.7-1.3) H 12/17/24 05:56
Calcium 9.3 mg/dl (8.4-10.2) 12/17/24 05:56
Total Bilirubin 1.2 mg/dl (0.2-1.3) 12/17/24 05:56
AST 27 U/L (17-59) 12/17/24 05:56
ALT 23 U/L (0-50) 12/17/24 05:56
Alkaline Phosphatase 217 U/L (38-126) H 12/17/24 05:56
Lipase 21 U/L (23-300) L 12/08/24 08:51
Diagnostic Image Results:
CT chest 12/16/24:
Probable developing mild right lower lobe aspiration pneumonia.
Mild bibasilar consolidation probably atelectasis.
Fluid and food filled esophagus as described above. Possible narrowing of the GE junction. Possible gastric wall thickening versus limited distention.Upper GI examination recommended.
Chest x-ray 12/16/2024:
IMPRESSION: Stable mild patchy suspected airspace disease in right lower lung field which could represent pneumonia.
Tiny bilateral pleural effusions. Improved on the left. Stable on the right.
Mild cardiomegaly. Stable.
CT abdomen pelvis with and without IV contrast 12/09/2024:
IMPRESSION:
Small volume ascites, without significant change.
Hepatic cirrhotic morphology, splenomegaly and some perisplenic varices again seen. Heterogeneous appearance of the liver limited with this imaging modality for space-occupying lesion.
Cholelithiasis. Small pancreatic body and tail cystic lesions better appreciated on prior MRI.
Suggest follow-up MRI with contrast for pancreatic lesions and for more complete evaluation of liver.
Significantly increased bilateral lower lobe consolidations which although most likely represent atelectasis, pneumonia cannot be excluded.
Limited evaluation of intestinal tract without oral contrast, without intestinal obstruction or free air.
Marked widespread bilateral abdominal wall edematous changes, significantly increased from prior CT
Prior GI Procedures:
EUS Findings: Impression: - A large amount of food (residue) in the stomach.
- Portal hypertensive gastropathy.
- A cystic lesion was seen in the pancreatic body.
Fine needle aspiration performed. Fine needle
aspiration for fluid performed.
- A cystic lesion was seen in the pancreatic tail.
- Main pancreatic duct (MPD) diameter was measured.
Endosonographically, the MPD had a dilated appearance.
- Pancreatic parenchymal abnormalities consisting of
hyperechoic strands, hyperechoic foci and lobularity
were noted in the pancreatic head and pancreatic body.
- One stone was visualized endosonographically in the
common bile duct.
- There was dilation in the common bile duct which
measured up to 8 mm.
- There was no sign of significant pathology in the
ampulla.
ERCP Findings: Impression: - A large amount of food (residue) in the stomach.
- Retained food in the duodenum.
- The major papilla appeared normal.
- A filling defect consistent with a stone was seen on
the cholangiogram.
- The common bile duct was mildly dilated.
- Choledocholithiasis was found. Likely removal was
accomplished (stone was not visualized due to large
food bezoar) by biliary sphincterotomy and balloon
extraction.
- A biliary sphincterotomy was performed.
- The biliary tree was swept.
- One plastic stent was placed into the ventral
pancreatic duct.
MRI abd 09/2024 -distended pancreatic duct 5 mm in the body of pancreas, approximately 10 cysts diffusely distributed throughout the pancreas most in the body and tail. Some of the cysts contain thin internal septation, 24 x 16 x 29 mm cyst in the
pancreatic body and an 18 x 14 x 20 mm cyst in the pancreatic tail. No enhancing solid mural nodules noted or thick enhancing internal septations in any of the cysts
EUS 09/2024 - cyst in the distal body of pancreas near tail measuring 17 x 18 mm, 2 compartments thickly septated, with thick outer wall. Intrinsic associated mass suggestive of possible mural nodule vs mucin ball present. FNA performed. Second
anechoic and septated cystic lesion in the tail measuring 24 x 25 mm. 2 compartments thickly septated. With thick outer wall. No associated mass. PD measured 3 mm in the head 4.5 mm in the body
Fluid analysis - CEA 3433, amylase 73, gluc 33, GNAS -ve, KRAS +ve low clonality
CT abd/pel w/o IV contrast 08/2023 - normal pancreas
EGD: ' [place] in the past'. Records unavailable to us
Colonoscopy: '[place] in the past'. Records unavailable to us
Assessment / Plan
-
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
varices, afib/flutter, CHF, pacer, HTN, hypercholesterolemia, hypothyroidism, NIDDM with neuropathy and prior amputation, stage III CKD, PAD, anemia of chronic disease, paroxysmal SVT, BPH, CHF, constipation, urinary retention, significant
biliary and pancreatic duct dilatation status post EUS and ERCP with choledocholithiasis status post biliary sphincterotomy and balloon extraction with placement of plastic stent into the ventral pancreatic duct 10/15/2024, found to have IPMN status
post follow-up with Dr. Garrett due to have repeat MRI in March 2025 who presented to the emergency room on 12/08/2024 for 'fluid buildup' dyspnea, edema, and pressure in his mid chest. Patient was being treated for acute hypoxic respiratory
insufficiency on 2 to 3 L of O2 either exacerbation of HFpEF vs. cirrhosis. He had a 20 pound weight gain in the past 2 months. He failed increased dose of diuretics as an outpatient. He was on a Lasix drip. 48 ounce fluid restriction. And
spironolactone. Yesterday he had an episode of choking on mashed potatoes and peas yesterday afternoon when he choked. Patient coughed up food although he felt as if he had food stuck and went into his lungs. CT of the chest showed food material
of fluid throughout the thoracic esophagus. With an air-fluid level more superiorly. With possible narrowing of the GE junction. We are asked to evaluate for the same.
Impression:
Episode of choking on food--> mashed potatoes and peas
Abnormal imaging--> CT chest showing food material throughout thoracic esophagus, air-fluid level superiorly possible narrowing at GE junction 12/16/24
Decompensated cirrhosis with history of ascites, hepatic encephalopathy and portal hypertensive gastropathy. Esophageal varices noted on imaging but not on prior endoscopic evaluation.
History IPMN-> status post EUS, repeat MRI in March 2025
Plan:
-NPO
-EGD today
-Potassium being replaced
-Patient has follow up with Dr. Garrett and MRI for March.
-We are awaiting his outpatient records from his prior GI.(Dr. Matt Reid) and will make follow up appt with him after DC with Dr. Guerrero.
-Xifaxan 550 mg po BID
-Diuretics as per IM/Nephrology
-Further recommendations to be forthcoming.
-
-
Thank you for consultation and allowing me to participate in the patient's care. Please call the electrical subcontractor GI physician during the after hours with any questions or concerns.
[2024-12-17 08:34] LABS: Glucose - Point of Care 133 mg/dl (70-99)
[2024-12-17] MEDS: KCL 270 MEQ IV (09:16)
[2024-12-17] MEDS: LANTUS 0.3 UNITS SC (09:16)
[2024-12-17] MEDS: CARDIZEM CD 180 MG PO (10:36)
[2024-12-17] MEDS: NEURONTIN 300 MG PO ×2 (10:37→20:13)
[2024-12-17] MEDS: TOPROL XL 75 MG PO ×2 (10:37→20:13)
[2024-12-17] MEDS: ROCALTROL 0.25 MCG PO (10:37)
[2024-12-17] MEDS: XIFAXAN 550 MG PO ×2 (10:37→20:14)
[2024-12-17] MEDS: ALDACTONE 25 MG PO (10:38)
[2024-12-17] MEDS: ASPIR LOW (ENTERIC COATED) 81 MG PO (10:38)
[2024-12-17] MEDS: FARXIGA 10 MG PO (10:38)
--- NOTE | 2024-12-17 11:21 | W.PN.HOSP.TC ---
Today's Communication/Plan
-
Monitor vitals
See plan
Replete potassium
Plan for EGD today
Add Lovenox for DVT prophylaxis
Assessment / Plan
Assessment / Plan
SOB with acute hypoxic respiratory insufficiency--on 2-3L O2-- etiologies likely exacerbation of HFpEF (despite pro BNP of 512), Decompensated alcoholic liver cirrhosis not likely as INR WNL and no ascites to tap, gradual weight gain from
immobility? ineffective meds and dose change needed?--apprec renal-patient was on Lasix drip and then pushes. Currently off of direuessis. Patient got dose of Diamox to help contraction alkalosis from Lasix
Aspiration episode 12/16 -patient was having mashed potatoes/peas when choked on the food, most of the things patient coughed out although feels may have some food stuck and went into the lungs. Chest x-ray did not show any atelectasis suggestive of
bronchial obstruction. CT with probable developing mid to right lower lobe aspiration pneumonia, continue with Unasyn. Also showed fluid-filled esophagus. GI following. Plan for EGD 12/17
Acute hypoxic respiratory insufficiency secondary to aspiration
Monitor, currently on 3 L
Wean oxygen as tolerated
Hypokalemia
replete
Urinary Retention secondary to BPH--had st cath-- duran placed at this time--cont flomax
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
Chronic anemia--Normocytic anemia with thrombocytopenia--likely from liver disease--follow
Paroxysmal SVT/Aflutter-- cont home diltiazem
type 2 IDDM--on home insulin 60u degludec daily, added novolog 5uAC, takes 22u pre-meal on review -- cont home Jardiance. Currently n.p.o., lower Lantus to 30 units
HTN/HLD- cont statin, metoprolol
Hypothyroidism- cont home levothyroxine
CKD stage 3a-- avoid nephrotoxic agents--apprec renal consult
History of left BKA -this has been done 5 years back. Patient was provided prosthetic leg which has not been able to have it for roughly 4 years due to change in girth of the stump site. Currently patient uses a sliding board discussion and he can
self transfer himself to wheelchair. This was attempted here with physical therapy although patient declined as he does not have the wheelchair that he needs. Discussed with patient that in order to make sure patient can safely be discharged back
to preadmission level care we need the wheelchair. Friend/acquaintance likely to bring wheelchair on Tuesday t
DVT proph-- SCDs, lovenox
Code status--FULL CODE
General: Well Developed, Well Nourished and Morbidly Obese
HEENT: Oxygen
Cardiac: Regular Rhythm and S1/S2
GI: Soft, Nontender, Nondistended and Normal Bowel Sounds
Musculoskeletal: No Clubbing, No Cyanosis, Edema, Right Lower Extrem, Edema, Left Lower Extrem and Other (Left BKA)
Neuro: Awake, Alert and Oriented
Psych: Calm
I spent a total of 52 minutes with the patient or on the floor. More than 50% of this time involved counseling and coordination of care.
Anticipated Discharge: > 48 hours
Subjective/Interval History
-
Date of Service: December 17, 2024
Denies pain
Objective Data
-
Labs:
Laboratory Results
12/17/24
05:56
WBC 5.6
Hgb 9.1 L
Hct 28.0 L
Plt Count 104 L
Sodium 141
Potassium 3.2 L
Chloride 101
Carbon Dioxide 34 H
BUN 51 H
Creatinine 1.4 H
Glucose 122 H
Calcium 9.3
Total Bilirubin 1.2
AST 27
ALT 23
Alkaline Phosphatase 217 H
Vital Signs:
Vital Signs
Temp Pulse Resp BP Pulse Ox
97.8 F 60 16 138/58 93
12/17/24 08:13 12/17/24 10:38 12/17/24 08:13 12/17/24 10:38 12/17/24 10:10
I&O
12/16/24 12/17/24 12/18/24
06:59 06:59 06:59
Intake Total 1550 / 1550 720 / 720
Output Total 3100 / 3100 3175 / 3175
Balance -1550 / -1550 -2455 / -2455
[2024-12-17 12:04] LABS: Glucose - Point of Care 134 mg/dl (70-99)
--- NOTE | 2024-12-17 12:23 | W.PN.NEPH.PH ---
Today's Communication / Plan
-
see plan
Assessment/Plan
-
IMP:
possible HFpEF - acute on chronic
CKD 3a cr 1.2-1.4
Type II DM
ETOH Cirrhosis
Lymphedema
Obesity, BMI 46
Intraductal papillary mucinous neoplasm -pancreatic cyst
Anemia
Hypothyroidism
h/o Urinary retention-BPH
Severe PAD, S/P left AKA
HLD
PLan:
cr slightly down to 1.4
replace k
net neg balance still and NPO for EGD so no diuretics today
resume tomorrow bumex 2mg BID
remains on duran for h/o retention, cont high dose flomax
cont Spironolactone to 25mg daily
cont Farxiga
Bp stable on CCB, Aldactone
Volume status improving, down 17kg , off lasix gtt 12/14
follow labs
-
-
Date of Service: December 17, 2024
CC / HPI / ROS
-
Chief Complaint:
CKD
History of Present Illness:
cr stable at 1.3�1.5
Bp stable, wt no change
hb stable 9
Review of Systems:
Off oxygen, volume status improving
no cp
no n/v
Labs
-
Labs:
WBC 5.6 10^3/uL (4.8-10.8) 12/17/24 05:56
RBC 3.10 10^6/uL (4.70-6.10) L 12/17/24 05:56
Hgb 9.1 g/dL (13.0-18.0) L 12/17/24 05:56
Hct 28.0 % (39.0-52.0) L 12/17/24 05:56
Plt Count 104 10^3/uL (130-400) L 12/17/24 05:56
Sodium 141 mmol/L (135-145) 12/17/24 05:56
Potassium 3.2 mmol/L (3.5-5.1) L 12/17/24 05:56
Chloride 101 mmol/L (98-107) 12/17/24 05:56
Carbon Dioxide 34 mmol/L (22-30) H 12/17/24 05:56
BUN 51 mg/dl (9-20) H 12/17/24 05:56
Creatinine 1.4 mg/dL (0.7-1.3) H 12/17/24 05:56
eGFR 56.13 12/17/24 05:56
Glucose 122 mg/dl (70-99) H 12/17/24 05:56
Calcium 9.3 mg/dl (8.4-10.2) 12/17/24 05:56
Omu-O-Tuyxwulnngy Pept 512 pg/ml 12/08/24 08:51
Albumin 3.5 g/dl (3.5-5.0) 12/17/24 05:56
Physical Exam
-
Vital Signs:
Vital Signs
Temp Pulse Resp BP Pulse Ox
97.6 F 63 16 141/68 96
12/17/24 14:17 12/17/24 14:17 12/17/24 14:17 12/17/24 14:17 12/17/24 14:17
Cardiovascular:: Regular rate and rhythm
Respiratory:: Bilateral: CTA (decreased BS)
Lung Excursion:: Normal
Abdomen:: Distended
Extremity Edema:: +2: Right:
Duran Catheter: Yes
Other Findings::
left bka-edematous stump
--- NOTE | 2024-12-17 12:37 | CM ---
CM following re: discharge planning.
Reviewed pt's chart, met with pt.
PT and OT evaluations noted from last week and VN services recommended. Pt is aware, expressed his agreement and [facility] requested.
A referral to [facility] made.
PT and OT will re-evaluate the pt. Pt now requires 3L NC of O2.
D/C plan: most likely return to [facility] with [facility].
CM will follow with discharge plan updates as hospitalization progresses
--- NOTE | 2024-12-17 13:19 | W.PN.UPDATE ---
Update Note
Progress Note Update
no retained food seen in the esophagus and no stricture or ring noted either. will resume diet. will sign off and will be available as needed.
[2024-12-17] MEDS: FERRLECIT 110 MG IV (14:12)
[2024-12-17 14:17] LABS: Glucose - Point of Care 112 mg/dl (70-99)
[2024-12-17] MEDS: NOVOLOG FLEXPEN-MODERATE RESISTANCE SC (15:13)
[2024-12-17] MEDS: NOVOLOG FLEXPEN 5 UNITS SC ×2 (15:28→17:02)
[2024-12-17 16:57] LABS: Glucose - Point of Care 214 mg/dl (70-99)
[2024-12-17] MEDS: NOVOLOG FLEXPEN-MODERATE RESISTANCE 3 UNITS SC (17:02)
[2024-12-17] MEDS: LOVENOX 40 MG SC (17:03)
[2024-12-17] MEDS: VITAMIN B-12 1000 MCG PO (17:03)
[2024-12-17] MEDS: BUMEX 2 MG IV (20:12)
[2024-12-17] MEDS: DILAUDID 8 MG PO (20:19)
[2024-12-17] MEDS: KCL 20 MEQ PO (21:32)
[2024-12-17] MEDS: FLOMAX 0.8 MG PO (21:32)
[2024-12-17] MEDS: LIPITOR 40 MG PO (21:32)
[2024-12-17 21:57] LABS: Glucose - Point of Care 219 mg/dl (70-99)
[2024-12-18] MEDS: UNASYN IV ×4 (02:11→21:49)
[2024-12-18 03:09] VITALS: BP 126/54
[2024-12-18 06:00] VITALS: BMI 41.4
[2024-12-18] MEDS: SYNTHROID 137 MCG PO (06:03)
[2024-12-18 06:56] LABS: % Basophils 0.7 % (0-2); % Lymphocytes 16.2 % (20.5-51.1); % Monocytes 9.3 % (1.7-9.3); % Neutrophils 68.8 % (42.2-75.2); Absolute Eosinophils 0.2 10^3/uL (0-0.7); Absolute Lymphocytes 0.7 10^3/uL (1.2-3.4); Absolute Monocytes 0.4 10^3/uL (0.1-0.6); Absolute Neutrophils 2.9 10^3/uL (1.4-6.5); Hematocrit 28.3 % (39.0-52.0); Mean Corp Hgb Conc. 31.8 g/dL (33.0-37.0); Mean Corpuscular Volume 91.3 fL (80.0-94.0); Mean Platelet Volume 10.4 fL (7.4-10.4); Nucleated Red Blood Cells % 0 % (-); Platelet Count 98 10^3/uL (130-400); White Blood Cell Count 4.2 10^3/uL (4.8-10.8)
[2024-12-18 07:12] LABS: ALT (SGPT) 23 U/L (0-50); AST (SGOT) 27 U/L (17-59); Albumin 3.6 g/dl (3.5-5.0); Alkaline Phosphatase 208 U/L (38-126); Blood Urea Nitrogen 49 mg/dl (9-20); Calcium 8.9 mg/dl (8.4-10.2); Carbon Dioxide 29 mmol/L (22-30); Chloride 105 mmol/L (98-107); Estimated Creatinine Clearance 73 ml/min; Glucose 196 mg/dl (70-99); Potassium 3.7 mmol/L (3.5-5.1); Sodium 141 mmol/L (135-145); Total Bilirubin 1.1 mg/dl (0.2-1.3); Total Protein 6.5 g/dl (6.3-8.2); eGFR > 60.00
[2024-12-18 07:15] VITALS: BP 134/62
[2024-12-18 07:22] LABS: Glucose - Point of Care 203 mg/dl (70-99)
[2024-12-18] MEDS: CARDIZEM CD 180 MG PO (08:23)
[2024-12-18] MEDS: LANTUS 0.6 UNITS SC (08:24)
[2024-12-18] MEDS: XIFAXAN 550 MG PO ×2 (08:24→21:48)
[2024-12-18] MEDS: TOPROL XL 75 MG PO ×2 (08:24→21:48)
[2024-12-18] MEDS: FARXIGA 10 MG PO (08:24)
[2024-12-18] MEDS: ASPIR LOW (ENTERIC COATED) 81 MG PO (08:24)
[2024-12-18] MEDS: ROCALTROL 0.25 MCG PO (08:24)
[2024-12-18] MEDS: ALDACTONE 25 MG PO (08:24)
[2024-12-18] MEDS: NEURONTIN 300 MG PO ×2 (08:24→21:48)
[2024-12-18] MEDS: BUMEX 2 MG IV ×2 (08:25→21:47)
[2024-12-18] MEDS: NOVOLOG FLEXPEN 5 UNITS SC ×2 (08:26→11:50)
[2024-12-18] MEDS: NOVOLOG FLEXPEN-MODERATE RESISTANCE 3 UNITS SC ×2 (08:27→16:56)
[2024-12-18] MEDS: COLACE 100 MG PO (08:47)
[2024-12-18] MEDS: DILAUDID 8 MG PO ×2 (08:47→21:51)
[2024-12-18] MEDS: DESENEX/MITRAZOL/ZEASORB 2 APPLIC TOPICAL (08:49)
--- NOTE | 2024-12-18 10:52 | W.PN.NEPH.PH ---
Today's Communication / Plan
-
diurese
Assessment/Plan
-
IMP:
HFpEF - acute on chronic
CKD 3a cr 1.2-1.4
Type II DM
ETOH Cirrhosis
Lymphedema
Obesity, BMI 46
Intraductal papillary mucinous neoplasm -pancreatic cyst
Anemia
Hypothyroidism
h/o Urinary retention-BPH
Severe PAD, S/P left AKA
HLD
Plan:
follow BMP
continue bumex 2mg IV BID and spironolactone
remains on duran for h/o retention, cont high dose flomax
cont Farxiga
Bp stable on CCB, Aldactone
goal another 5# at least
-
-
Date of Service: December 18, 2024
CC / HPI / ROS
-
Chief Complaint:
CKD
History of Present Illness:
Cr stable at 1.3
K up to 2.7
BP stable
hgb stable 9.0
diuresing with bumex for decompensated HF
Review of Systems:
Off oxygen
no cp
no n/v
Labs
-
Labs:
WBC 4.2 10^3/uL (4.8-10.8) L 12/18/24 06:00
RBC 3.10 10^6/uL (4.70-6.10) L 12/18/24 06:00
Hgb 9.0 g/dL (13.0-18.0) L 12/18/24 06:00
Hct 28.3 % (39.0-52.0) L 12/18/24 06:00
Plt Count 98 10^3/uL (130-400) L 12/18/24 06:00
Sodium 141 mmol/L (135-145) 12/18/24 06:00
Potassium 3.7 mmol/L (3.5-5.1) 12/18/24 06:00
Chloride 105 mmol/L (98-107) 12/18/24 06:00
Carbon Dioxide 29 mmol/L (22-30) 12/18/24 06:00
BUN 49 mg/dl (9-20) H 12/18/24 06:00
Creatinine 1.3 mg/dL (0.7-1.3) 12/18/24 06:00
eGFR > 60.00 12/18/24 06:00
Glucose 196 mg/dl (70-99) H 12/18/24 06:00
Calcium 8.9 mg/dl (8.4-10.2) 12/18/24 06:00
Jni-C-Wgmtrofcyzq Pept 512 pg/ml 12/08/24 08:51
Albumin 3.6 g/dl (3.5-5.0) 12/18/24 06:00
Physical Exam
-
Vital Signs:
Vital Signs
Temp Pulse Resp BP Pulse Ox
98.1 F 61 16 134/62 97
12/18/24 07:15 12/18/24 08:25 12/18/24 07:15 12/18/24 08:25 12/18/24 08:00
Cardiovascular:: Regular rate and rhythm
Respiratory:: Bilateral: Coarse
Lung Excursion:: Normal
Abdomen:: Nontender and Soft
Bowel Sounds:: Normal
Extremity Edema:: +3: Bilateral:
[2024-12-18 11:25] VITALS: BP 145/65
[2024-12-18 11:38] LABS: Glucose - Point of Care 272 mg/dl (70-99)
[2024-12-18] MEDS: NOVOLOG FLEXPEN-MODERATE RESISTANCE 5 UNITS SC (11:50)
--- NOTE | 2024-12-18 12:24 | W.PN.HOSP.TC ---
Today's Communication/Plan
-
Monitor vital signs see plan
Continue with IV diuresis
Increase mealtime insulin
Hopeful DC soon
Assessment / Plan
Assessment / Plan
SOB with acute hypoxic respiratory insufficiency--on 2-3L O2-- etiologies likely exacerbation of HFpEF (despite pro BNP of 512), Decompensated alcoholic liver cirrhosis not likely as INR WNL and no ascites to tap, gradual weight gain from
immobility? ineffective meds and dose change needed?--apprec renal-patient was on Lasix drip and then pushes. Now back on Bumex IV
Aspiration episode 12/16 -patient was having mashed potatoes/peas when choked on the food, most of the things patient coughed out although feels may have some food stuck and went into the lungs. Chest x-ray did not show any atelectasis suggestive of
bronchial obstruction. CT with probable developing mid to right lower lobe aspiration pneumonia, continue with Unasyn. Also showed fluid-filled esophagus. GI following. EGD 12/17 without any stricture. Small amount of food in the stomach.
Patient will follow-up with GI outpatient for repeat MRI. Currently tolerating regular diet
Acute hypoxic respiratory insufficiency secondary to aspiration
Monitor, nasal cannula as needed
Wean oxygen as tolerated
Hypokalemia
replete
Urinary Retention secondary to BPH--had st cath-- duran placed at this time--cont flomax. Will need to follow-up with urology
Chronic HFpEF --supervisor testing at [facility]--consider need for cards eval--cont aldactone, metoprolol
Chronic anemia--Normocytic anemia with thrombocytopenia--likely from liver disease--follow
Paroxysmal SVT/Aflutter-- cont home diltiazem
type 2 IDDM--on home insulin 60u degludec daily, increase aspart to 10 units-- cont home Jardiance.
HTN/HLD- cont statin, metoprolol
Hypothyroidism- cont home levothyroxine
CKD stage 3a-- avoid nephrotoxic agents--apprec renal consult
History of left BKA -this has been done 5 years back. Patient was provided prosthetic leg which has not been able to have it for roughly 4 years due to change in girth of the stump site. Currently patient uses a sliding board discussion and he can
self transfer himself to wheelchair. This was attempted here with physical therapy although patient declined as he does not have the wheelchair that he needs. Discussed with patient that in order to make sure patient can safely be discharged back
to preadmission level care we need the wheelchair. Friend/acquaintance likely to bring wheelchair on Tuesday t
DVT proph-- SCDs, lovenox
Code status--FULL CODE
General: Well Developed, Well Nourished and Morbidly Obese
HEENT: Oxygen
Cardiac: Regular Rhythm and S1/S2
GI: Soft, Nontender, Nondistended and Normal Bowel Sounds
Musculoskeletal: No Clubbing, No Cyanosis, Edema, Right Lower Extrem, Edema, Left Lower Extrem and Other (Left BKA)
Neuro: Awake, Alert and Oriented
Psych: Calm
I spent a total of 51 minutes with the patient or on the floor. More than 50% of this time involved counseling and coordination of care.
Anticipated Discharge: 24 - 48 hours
Subjective/Interval History
-
Date of Service: December 18, 2024
denies pain
Objective Data
-
Labs:
Laboratory Results
12/18/24
06:00
WBC 4.2 L
Hgb 9.0 L
Hct 28.3 L
Plt Count 98 L
Sodium 141
Potassium 3.7
Chloride 105
Carbon Dioxide 29
BUN 49 H
Creatinine 1.3
Glucose 196 H
Calcium 8.9
Total Bilirubin 1.1
AST 27
ALT 23
Alkaline Phosphatase 208 H
Vital Signs:
Vital Signs
Temp Pulse Resp BP Pulse Ox
98.2 F 61 18 145/65 94
12/18/24 11:25 12/18/24 11:25 12/18/24 11:25 12/18/24 11:25 12/18/24 11:25
I&O
12/17/24 12/18/24 12/19/24
06:59 06:59 06:59
Intake Total 720 / 720 1830 / 1830
Output Total 3175 / 3175 3575 / 3575
Balance -2455 / -2455 -1745 / -1745
[2024-12-18 15:51] VITALS: BP 142/67
[2024-12-18 16:53] LABS: Glucose - Point of Care 235 mg/dl (70-99)
[2024-12-18] MEDS: NOVOLOG FLEXPEN 10 UNITS SC (16:55)
[2024-12-18] MEDS: LOVENOX 40 MG SC (17:11)
[2024-12-18] MEDS: VITAMIN B-12 1000 MCG PO (17:11)
[2024-12-18 19:41] VITALS: BP 145/64
[2024-12-18 21:30] LABS: Glucose - Point of Care 243 mg/dl (70-99)
[2024-12-18] MEDS: FLOMAX 0.8 MG PO (21:48)
[2024-12-18] MEDS: DESENEX/MITRAZOL/ZEASORB 1 APPLIC TOPICAL (21:48)
[2024-12-18] MEDS: LIPITOR 40 MG PO (21:49)
[2024-12-18 23:41] VITALS: BP 141/65
[2024-12-19 03:29] VITALS: BP 133/58
[2024-12-19] MEDS: UNASYN IV ×2 (03:46→08:37)
[2024-12-19] MEDS: SYNTHROID 137 MCG PO (03:53)
[2024-12-19 06:00] VITALS: BMI 41.4
[2024-12-19 07:05] VITALS: BP 135/65
[2024-12-19 07:27] LABS: Glucose - Point of Care 207 mg/dl (70-99)
[2024-12-19 07:46] LABS: % Basophils 0.6 % (0-2); % Eosinophils 4.8 % (0-6); % Immature Granulocytes 0.8 % (0-0.5); % Lymphocytes 14.3 % (20.5-51.1); % Monocytes 8.1 % (1.7-9.3); % Neutrophils 71.4 % (42.2-75.2); Absolute Eosinophils 0.3 10^3/uL (0-0.7); Absolute Lymphocytes 0.7 10^3/uL (1.2-3.4); Absolute Monocytes 0.4 10^3/uL (0.1-0.6); Absolute Neutrophils 3.7 10^3/uL (1.4-6.5); Hematocrit 28.9 % (39.0-52.0); Hemoglobin 9.2 g/dL (13.0-18.0); Mean Corp Hgb Conc. 31.8 g/dL (33.0-37.0); Mean Corpuscular Hgb 29.2 pg (27.0-31.0); Mean Corpuscular Volume 91.7 fL (80.0-94.0); Mean Platelet Volume 10.6 fL (7.4-10.4); Nucleated Red Blood Cells % 0 % (-); Platelet Count 100 10^3/uL (130-400); Red Blood Cell Count 3.15 10^6/uL (4.70-6.10); Red Cell Dist. Width 15.1 % (11.5-14.5); White Blood Cell Count 5.2 10^3/uL (4.8-10.8)
[2024-12-19] MEDS: ASPIR LOW (ENTERIC COATED) 81 MG PO (07:49)
[2024-12-19] MEDS: NEURONTIN 300 MG PO ×2 (07:49→20:31)
[2024-12-19] MEDS: CARDIZEM CD 180 MG PO (07:49)
[2024-12-19] MEDS: TOPROL XL 75 MG PO ×2 (07:50→20:30)
[2024-12-19] MEDS: ALDACTONE 25 MG PO (07:51)
[2024-12-19] MEDS: FARXIGA 10 MG PO (07:51)
[2024-12-19] MEDS: XIFAXAN 550 MG PO ×2 (07:52→20:30)
[2024-12-19] MEDS: NOVOLOG FLEXPEN 10 UNITS SC ×2 (07:52→12:02)
[2024-12-19] MEDS: ROCALTROL 0.25 MCG PO (07:52)
[2024-12-19] MEDS: LANTUS 0.6 UNITS SC (07:52)
[2024-12-19] MEDS: NOVOLOG FLEXPEN-MODERATE RESISTANCE 3 UNITS SC ×2 (07:53→17:26)
[2024-12-19] MEDS: COLACE 100 MG PO (07:57)
[2024-12-19] MEDS: DILAUDID 8 MG PO ×2 (07:58→20:40)
[2024-12-19] MEDS: BUMEX 2 MG IV ×2 (08:37→20:30)
[2024-12-19] MEDS: DESENEX/MITRAZOL/ZEASORB 1 APPLIC TOPICAL ×2 (08:38→22:35)
[2024-12-19 08:42] LABS: ALT (SGPT) 24 U/L (0-50); AST (SGOT) 27 U/L (17-59); Albumin 3.7 g/dl (3.5-5.0); Alkaline Phosphatase 213 U/L (38-126); Blood Urea Nitrogen 52 mg/dl (9-20); Calcium 8.8 mg/dl (8.4-10.2); Carbon Dioxide 28 mmol/L (22-30); Chloride 104 mmol/L (98-107); Estimated Creatinine Clearance 68 ml/min; Glucose 188 mg/dl (70-99); Sodium 141 mmol/L (135-145); Total Bilirubin 1.2 mg/dl (0.2-1.3); Total Protein 6.7 g/dl (6.3-8.2); eGFR 56.13
--- NOTE | 2024-12-19 10:48 | W.PN.NEPH.PH ---
Today's Communication / Plan
-
Add metolazone today
Assessment/Plan
-
IMP:
HFpEF - acute on chronic
CKD 3a cr 1.2-1.4
Type II DM
ETOH Cirrhosis
Lymphedema
Obesity, BMI 46
Intraductal papillary mucinous neoplasm -pancreatic cyst
Anemia
Hypothyroidism
h/o Urinary retention-BPH
Severe PAD, S/P left AKA
HLD
Plan:
follow BMP
continue bumex 2mg IV BID and spironolactone
remains on duran for h/o retention, cont high dose flomax
cont Farxiga
Bp stable on CCB, Aldactone
goal another 5# at least
We will add metolazone today with decreased output no change in weight
-
-
Date of Service: December 19, 2024
CC / HPI / ROS
-
Chief Complaint:
CKD
History of Present Illness:
Cr stable at 1.3
BP stable
hgb stable 9.0
diuresing with bumex for decompensated HF
Review of Systems:
Off oxygen
no cp
no n/v
Labs
-
Labs:
WBC 5.2 10^3/uL (4.8-10.8) 12/19/24 06:21
RBC 3.15 10^6/uL (4.70-6.10) L 12/19/24 06:21
Hgb 9.2 g/dL (13.0-18.0) L 12/19/24 06:21
Hct 28.9 % (39.0-52.0) L 12/19/24 06:21
Plt Count 100 10^3/uL (130-400) L 12/19/24 06:21
Sodium 141 mmol/L (135-145) 12/19/24 06:21
Potassium 4.0 mmol/L (3.5-5.1) 12/19/24 06:21
Chloride 104 mmol/L (98-107) 12/19/24 06:21
Carbon Dioxide 28 mmol/L (22-30) 12/19/24 06:21
BUN 52 mg/dl (9-20) H 12/19/24 06:21
Creatinine 1.4 mg/dL (0.7-1.3) H 12/19/24 06:21
eGFR 56.13 12/19/24 06:21
Glucose 188 mg/dl (70-99) H 12/19/24 06:21
Calcium 8.8 mg/dl (8.4-10.2) 12/19/24 06:21
Ofy-X-Lnrnfnzvkae Pept 512 pg/ml 12/08/24 08:51
Albumin 3.7 g/dl (3.5-5.0) 12/19/24 06:21
Physical Exam
-
Vital Signs:
Vital Signs
Temp Pulse Resp BP Pulse Ox
98 F 61 16 135/65 90
12/19/24 07:05 12/19/24 08:37 12/19/24 07:05 12/19/24 08:37 12/19/24 07:05
Cardiovascular:: Regular rate and rhythm
Respiratory:: Bilateral: Coarse
Lung Excursion:: Normal
Abdomen:: Nontender and Soft
Bowel Sounds:: Normal
Extremity Edema:: +3: Bilateral:
[2024-12-19 11:00] VITALS: BP 142/65
[2024-12-19 11:26] LABS: Glucose - Point of Care 192 mg/dl (70-99)
--- NOTE | 2024-12-19 11:31 | W.PN.HOSP.TC ---
Today's Communication/Plan
-
Monitor vital signs see plan
Continue with diuresis per nephrology, added metolazone
Maintain Duran for now, voiding trial either later today or tomorrow if okay with nephrology
Change antibiotics to oral
Increase insulin
Assessment / Plan
Assessment / Plan
SOB with acute hypoxic respiratory insufficiency--on 2-3L O2-- etiologies likely exacerbation of HFpEF (despite pro BNP of 512), Decompensated alcoholic liver cirrhosis not likely as INR WNL and no ascites to tap, gradual weight gain from
immobility? ineffective meds and dose change needed?--apprec renal-patient was on Lasix drip and then pushes. Now back on Bumex IV. Added metolazone
Aspiration episode 12/16 -patient was having mashed potatoes/peas when choked on the food, most of the things patient coughed out although feels may have some food stuck and went into the lungs. Chest x-ray did not show any atelectasis suggestive of
bronchial obstruction. CT with probable developing mid to right lower lobe aspiration pneumonia, switch Zosyn to Augmentin to complete course. Also showed fluid-filled esophagus. GI following. EGD 12/17 without any stricture. Small amount of
food in the stomach. Patient will follow-up with GI outpatient for repeat MRI. Currently tolerating regular diet
Acute hypoxic respiratory insufficiency secondary to aspiration
Monitor, nasal cannula as needed
Wean oxygen as tolerated, now on room air
Hypokalemia
replete
Urinary Retention secondary to BPH--had st cath-- duran placed at this time--cont flomax. Will need to follow-up with urology. Voiding trial later 12/19 or 12/20
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
Chronic anemia--Normocytic anemia with thrombocytopenia--likely from liver disease--follow
Paroxysmal SVT/Aflutter-- cont home diltiazem
type 2 IDDM--on home insulin 60u degludec daily, increase aspart to 15 units-- cont home Jardiance.
HTN/HLD- cont statin, metoprolol
Hypothyroidism- cont home levothyroxine
CKD stage 3a-- avoid nephrotoxic agents--apprec renal consult
History of left BKA -this has been done 5 years back. Patient was provided prosthetic leg which has not been able to have it for roughly 4 years due to change in girth of the stump site. Currently patient uses a sliding board discussion and he can
self transfer himself to wheelchair. This was attempted here with physical therapy although patient declined as he does not have the wheelchair that he needs. Discussed with patient that in order to make sure patient can safely be discharged back
to preadmission level care we need the wheelchair. Friend/acquaintance likely to bring wheelchair on Tuesday. Now has wheelchair
DVT proph-- SCDs, lovenox
Code status--FULL CODE
General: Well Developed, Well Nourished and Morbidly Obese
HEENT: Oxygen
Cardiac: Regular Rhythm and S1/S2
GI: Soft, Nontender, Nondistended and Normal Bowel Sounds
Musculoskeletal: No Clubbing, No Cyanosis, Edema, Right Lower Extrem, Edema, Left Lower Extrem and Other (Left BKA)
Neuro: Awake, Alert and Oriented
Psych: Calm
I spent a total of 52 minutes with the patient or on the floor. More than 50% of this time involved counseling and coordination of care.
Anticipated Discharge: 24 - 48 hours
Subjective/Interval History
-
Date of Service: December 19, 2024
denies pain
Objective Data
-
Labs:
Laboratory Results
12/19/24
06:21
WBC 5.2
Hgb 9.2 L
Hct 28.9 L
Plt Count 100 L
Sodium 141
Potassium 4.0
Chloride 104
Carbon Dioxide 28
BUN 52 H
Creatinine 1.4 H
Glucose 188 H
Calcium 8.8
Total Bilirubin 1.2
AST 27
ALT 24
Alkaline Phosphatase 213 H
Vital Signs:
Vital Signs
Temp Pulse Resp BP Pulse Ox
98 F 61 16 135/65 90
12/19/24 07:05 12/19/24 08:37 12/19/24 07:05 12/19/24 08:37 12/19/24 11:17
I&O
12/18/24 12/19/24 12/20/24
06:59 06:59 06:59
Intake Total 1830 / 1830 1740 / 1740
Output Total 3575 / 3575 3250 / 3250
Balance -1745 / -1745 -1510 / -1510
[2024-12-19] MEDS: NOVOLOG FLEXPEN-MODERATE RESISTANCE 1 UNITS SC (12:02)
[2024-12-19] MEDS: ZAROXOLYN 5 MG PO (12:02)
[2024-12-19] MEDS: AUGMENTIN 875 MG/125 MG 1 TABLET PO ×2 (12:04→22:35)
--- NOTE | 2024-12-19 12:49 | CM ---
CM following re: discharge planning.
Reviewed pt's chart, met with pt.
PT and OT continue recommending VN services recommended.
A referral to [facility] made yesterday. Pt is accepted for VN services.
Please fax discharge instructions to [facility] at [phone]
D/C plan: return back to [facility] with [facility].
CM will follow with discharge plan updates as hospitalization progresses
[2024-12-19 15:00] VITALS: BP 132/52
[2024-12-19 16:37] LABS: Glucose - Point of Care 206 mg/dl (70-99)
[2024-12-19] MEDS: VITAMIN B-12 1000 MCG PO (17:25)
[2024-12-19] MEDS: LOVENOX 40 MG SC (17:25)
[2024-12-19] MEDS: NOVOLOG FLEXPEN 15 UNITS SC (17:26)
[2024-12-19 19:20] VITALS: BP 151/64
[2024-12-19 21:15] LABS: Glucose - Point of Care 173 mg/dl (70-99)
[2024-12-19] MEDS: FLOMAX 0.8 MG PO (22:35)
[2024-12-19] MEDS: LIPITOR 40 MG PO (22:36)
[2024-12-19 23:10] VITALS: BP 132/75
--- NOTE | 2024-12-20 00:26 | PTCARENOTE ---
Pt refusing turning/repostioning despite education
[2024-12-20 05:25] VITALS: BMI 41.2
[2024-12-20] MEDS: SYNTHROID 137 MCG PO (05:42)
[2024-12-20 06:48] LABS: % Basophils 0.7 % (0-2); % Eosinophils 5.3 % (0-6); % Lymphocytes 17.7 % (20.5-51.1); % Monocytes 7.9 % (1.7-9.3); % Neutrophils 67.4 % (42.2-75.2); Absolute Eosinophils 0.2 10^3/uL (0-0.7); Absolute Lymphocytes 0.7 10^3/uL (1.2-3.4); Absolute Monocytes 0.3 10^3/uL (0.1-0.6); Absolute Neutrophils 2.8 10^3/uL (1.4-6.5); Hematocrit 26.8 % (39.0-52.0); Hemoglobin 8.8 g/dL (13.0-18.0); Mean Corp Hgb Conc. 32.8 g/dL (33.0-37.0); Mean Corpuscular Hgb 29.3 pg (27.0-31.0); Mean Corpuscular Volume 89.3 fL (80.0-94.0); Mean Platelet Volume 10.6 fL (7.4-10.4); Nucleated Red Blood Cells % 0 % (-); Platelet Count 100 10^3/uL (130-400); White Blood Cell Count 4.2 10^3/uL (4.8-10.8)
[2024-12-20 07:03] LABS: ALT (SGPT) 26 U/L (0-50); AST (SGOT) 29 U/L (17-59); Albumin 3.5 g/dl (3.5-5.0); Alkaline Phosphatase 224 U/L (38-126); Blood Urea Nitrogen 56 mg/dl (9-20); Calcium 8.7 mg/dl (8.4-10.2); Carbon Dioxide 27 mmol/L (22-30); Chloride 102 mmol/L (98-107); Estimated Creatinine Clearance 63 ml/min; Glucose 184 mg/dl (70-99); Potassium 3.6 mmol/L (3.5-5.1); Sodium 138 mmol/L (135-145); Total Bilirubin 1.2 mg/dl (0.2-1.3); Total Protein 6.4 g/dl (6.3-8.2); eGFR 51.67
[2024-12-20 07:05] VITALS: BP 123/57
[2024-12-20 08:07] LABS: Glucose - Point of Care 239 mg/dl (70-99)
[2024-12-20] MEDS: ASPIR LOW (ENTERIC COATED) 81 MG PO (09:01)
[2024-12-20] MEDS: TOPROL XL 75 MG PO ×2 (09:01→21:02)
[2024-12-20] MEDS: AUGMENTIN 875 MG/125 MG 1 TABLET PO ×2 (09:02→21:02)
[2024-12-20] MEDS: XIFAXAN 550 MG PO ×2 (09:03→21:02)
[2024-12-20] MEDS: NEURONTIN 300 MG PO ×2 (09:03→21:02)
[2024-12-20] MEDS: DILAUDID 8 MG PO (09:03)
[2024-12-20] MEDS: ZAROXOLYN 5 MG PO (09:04)
[2024-12-20] MEDS: ALDACTONE 25 MG PO (09:04)
[2024-12-20] MEDS: FARXIGA 10 MG PO (09:04)
[2024-12-20] MEDS: COLACE 100 MG PO (09:04)
[2024-12-20] MEDS: ROCALTROL 0.25 MCG PO (09:04)
[2024-12-20] MEDS: CARDIZEM CD 180 MG PO (09:04)
[2024-12-20] MEDS: LANTUS 0.6 UNITS SC (09:05)
[2024-12-20] MEDS: BUMEX 2 MG IV ×2 (09:06→21:03)
[2024-12-20] MEDS: NOVOLOG FLEXPEN-MODERATE RESISTANCE 3 UNITS SC (09:07)
[2024-12-20] MEDS: NOVOLOG FLEXPEN 15 UNITS SC (09:07)
[2024-12-20] MEDS: DESENEX/MITRAZOL/ZEASORB 1 APPLIC TOPICAL ×2 (09:08→21:03)
[2024-12-20 11:00] VITALS: BP 133/62
[2024-12-20 11:18] LABS: Glucose - Point of Care 199 mg/dl (70-99)
--- NOTE | 2024-12-20 11:30 | W.PN.HOSP.TC ---
Today's Communication/Plan
-
Monitor vital signs
see plan
Continue with diuresis per nephrology
Voiding trial today if okay with nephrology
monitor renal function
Assessment / Plan
Assessment / Plan
SOB with acute hypoxic respiratory insufficiency--on 2-3L O2-- etiologies likely exacerbation of HFpEF (despite pro BNP of 512), Decompensated alcoholic liver cirrhosis not likely as INR WNL and no ascites to tap, gradual weight gain from
immobility? ineffective meds and dose change needed?--apprec renal-patient was on Lasix drip and then pushes. Now back on Bumex IV. Added metolazone
Aspiration episode 12/16 -patient was having mashed potatoes/peas when choked on the food, most of the things patient coughed out although feels may have some food stuck and went into the lungs. Chest x-ray did not show any atelectasis suggestive of
bronchial obstruction. CT with probable developing mid to right lower lobe aspiration pneumonia, switch Zosyn to Augmentin to complete course. Also showed fluid-filled esophagus. GI following. EGD 12/17 without any stricture. Small amount of
food in the stomach. Patient will follow-up with GI outpatient for repeat MRI. Currently tolerating regular diet
Acute hypoxic respiratory insufficiency secondary to aspiration
Monitor, nasal cannula as needed
Wean oxygen as tolerated, now on room air
Hypokalemia
monitor
Urinary Retention secondary to BPH--had st cath-- duran placed at this time--cont flomax. Will need to follow-up with urology. Voiding trial later 12/20 if okay with nephrology
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
Chronic anemia--Normocytic anemia with thrombocytopenia--likely from liver disease--follow
Paroxysmal SVT/Aflutter-- cont home diltiazem
type 2 IDDM--on home insulin 60u degludec daily, increase aspart to 18 units-- cont home Jardiance.
HTN/HLD- cont statin, metoprolol
Hypothyroidism- cont home levothyroxine
CKD stage 3a-- avoid nephrotoxic agents--apprec renal consult
History of left BKA -this has been done 5 years back. Patient was provided prosthetic leg which has not been able to have it for roughly 4 years due to change in girth of the stump site. Currently patient uses a sliding board discussion and he can
self transfer himself to wheelchair. This was attempted here with physical therapy although patient declined as he does not have the wheelchair that he needs. Discussed with patient that in order to make sure patient can safely be discharged back
to preadmission level care we need the wheelchair. Friend/acquaintance likely to bring wheelchair on Tuesday. Now has wheelchair
DVT proph-- SCDs, lovenox
Code status--FULL CODE
General: Well Developed, Well Nourished and Morbidly Obese
HEENT: Oxygen
Cardiac: Regular Rhythm and S1/S2
GI: Soft, Nontender, Nondistended and Normal Bowel Sounds
Musculoskeletal: No Clubbing, No Cyanosis, Edema, Right Lower Extrem, Edema, Left Lower Extrem and Other (Left BKA)
Neuro: Awake, Alert and Oriented
Psych: Calm
I spent a total of 51 minutes with the patient or on the floor. More than 50% of this time involved counseling and coordination of care.
Anticipated Discharge: Within 24 hours
Subjective/Interval History
-
Date of Service: December 20, 2024
denies pain
Objective Data
-
Labs:
Laboratory Results
12/20/24
05:39
WBC 4.2 L
Hgb 8.8 L
Hct 26.8 L
Plt Count 100 L
Sodium 138
Potassium 3.6
Chloride 102
Carbon Dioxide 27
BUN 56 H
Creatinine 1.5 H
Glucose 184 H
Calcium 8.7
Total Bilirubin 1.2
AST 29
ALT 26
Alkaline Phosphatase 224 H
Vital Signs:
Vital Signs
Temp Pulse Resp BP Pulse Ox
98.1 F 61 18 123/57 94
12/20/24 07:05 12/20/24 09:01 12/20/24 07:05 12/20/24 09:01 12/20/24 07:25
I&O
12/19/24 12/20/24 12/21/24
06:59 06:59 06:59
Intake Total 1740 / 1740 1530 / 1530
Output Total 3250 / 3250 3250 / 3250
Balance -1510 / -1510 -1720 / -1720
[2024-12-20] MEDS: NOVOLOG FLEXPEN-MODERATE RESISTANCE 1 UNITS SC (12:17)
[2024-12-20] MEDS: NOVOLOG FLEXPEN 18 UNITS SC ×2 (12:18→17:21)
[2024-12-20] MEDS: NOVOLOG FLEXPEN SC (12:22)
--- NOTE | 2024-12-20 13:01 | W.PN.NEPH.PH ---
Today's Communication / Plan
-
Continue diuretics
Remove Duran
Assessment/Plan
-
IMP:
HFpEF - acute on chronic
CKD 3a cr 1.2-1.4
Type II DM
ETOH Cirrhosis
Lymphedema
Obesity, BMI 46
Intraductal papillary mucinous neoplasm -pancreatic cyst
Anemia
Hypothyroidism
h/o Urinary retention-BPH
Severe PAD, S/P left AKA
HLD
Plan:
follow BMP
continue bumex 2mg IV BID and spironolactone, metolazone added 04/20
remains on duran for h/o retention, cont high dose flomax
cont Farxiga
Bp stable on CCB, Aldactone
Okay with Duran catheter removal
-
-
Date of Service: December 20, 2024
CC / HPI / ROS
-
Chief Complaint:
CKD
History of Present Illness:
Cr stable at 1.3
BP stable
hgb stable
diuresing with bumex for decompensated HF
Review of Systems:
Off oxygen
no cp
no n/v
Labs
-
Labs:
WBC 4.2 10^3/uL (4.8-10.8) L 12/20/24 05:39
RBC 3.00 10^6/uL (4.70-6.10) L 12/20/24 05:39
Hgb 8.8 g/dL (13.0-18.0) L 12/20/24 05:39
Hct 26.8 % (39.0-52.0) L 12/20/24 05:39
Plt Count 100 10^3/uL (130-400) L 12/20/24 05:39
Sodium 138 mmol/L (135-145) 12/20/24 05:39
Potassium 3.6 mmol/L (3.5-5.1) 12/20/24 05:39
Chloride 102 mmol/L (98-107) 12/20/24 05:39
Carbon Dioxide 27 mmol/L (22-30) 12/20/24 05:39
BUN 56 mg/dl (9-20) H 12/20/24 05:39
Creatinine 1.5 mg/dL (0.7-1.3) H 12/20/24 05:39
eGFR 51.67 12/20/24 05:39
Glucose 184 mg/dl (70-99) H 12/20/24 05:39
Calcium 8.7 mg/dl (8.4-10.2) 12/20/24 05:39
Jng-J-Wimqpgjhxue Pept 512 pg/ml 12/08/24 08:51
Albumin 3.5 g/dl (3.5-5.0) 12/20/24 05:39
Physical Exam
-
Vital Signs:
Vital Signs
Temp Pulse Resp BP Pulse Ox
98.1 F 63 16 133/62 97
12/20/24 11:00 12/20/24 11:00 12/20/24 11:00 12/20/24 11:00 12/20/24 11:00
Cardiovascular:: Regular rate and rhythm
Respiratory:: Bilateral: Coarse
Lung Excursion:: Normal
Abdomen:: Nontender and Soft
Bowel Sounds:: Normal
Extremity Edema:: +3: Bilateral:
[2024-12-20 15:00] VITALS: BP 131/52
[2024-12-20 16:21] LABS: Glucose - Point of Care 125 mg/dl (70-99)
[2024-12-20] MEDS: VITAMIN B-12 1000 MCG PO (17:19)
[2024-12-20] MEDS: LOVENOX 40 MG SC (17:20)
[2024-12-20] MEDS: NOVOLOG FLEXPEN-MODERATE RESISTANCE SC (17:22)
[2024-12-20 20:15] VITALS: BP 142/71
[2024-12-20] MEDS: FLOMAX 0.8 MG PO (21:02)
[2024-12-20] MEDS: LIPITOR 40 MG PO (21:02)
[2024-12-20] MEDS: DULCOLAX 10 MG RECTAL (21:05)
[2024-12-20 21:15] LABS: Glucose - Point of Care 121 mg/dl (70-99)
[2024-12-20 23:31] VITALS: BP 132/56
[2024-12-21 02:57] VITALS: BP 133/61
[2024-12-21 05:29] VITALS: BMI 40.5
[2024-12-21] MEDS: SYNTHROID 137 MCG PO (06:40)
[2024-12-21 07:00] LABS: % Basophils 0.5 % (0-2); % Eosinophils 4.8 % (0-6); % Immature Granulocytes 1.1 % (0-0.5); % Lymphocytes 17.4 % (20.5-51.1); % Monocytes 7.5 % (1.7-9.3); % Neutrophils 68.7 % (42.2-75.2); Absolute Eosinophils 0.2 10^3/uL (0-0.7); Absolute Immature Granulocytes 0.1 10^3/uL (0-0.05); Absolute Lymphocytes 0.8 10^3/uL (1.2-3.4); Absolute Monocytes 0.3 10^3/uL (0.1-0.6); Hematocrit 27.4 % (39.0-52.0); Hemoglobin 9.1 g/dL (13.0-18.0); Mean Corp Hgb Conc. 33.2 g/dL (33.0-37.0); Mean Corpuscular Hgb 29.2 pg (27.0-31.0); Mean Corpuscular Volume 87.8 fL (80.0-94.0); Mean Platelet Volume 10.5 fL (7.4-10.4); Nucleated Red Blood Cells % 0 % (-); Platelet Count 102 10^3/uL (130-400); Red Blood Cell Count 3.12 10^6/uL (4.70-6.10); Red Cell Dist. Width 14.9 % (11.5-14.5); White Blood Cell Count 4.4 10^3/uL (4.8-10.8)
[2024-12-21 07:20] VITALS: BP 153/70
[2024-12-21 07:24] LABS: ALT (SGPT) 26 U/L (0-50); AST (SGOT) 26 U/L (17-59); Albumin 3.7 g/dl (3.5-5.0); Alkaline Phosphatase 223 U/L (38-126); Blood Urea Nitrogen 62 mg/dl (9-20); Calcium 9.5 mg/dl (8.4-10.2); Carbon Dioxide 33 mmol/L (22-30); Chloride 99 mmol/L (98-107); Estimated Creatinine Clearance 59 ml/min; Glucose 210 mg/dl (70-99); Potassium 3.4 mmol/L (3.5-5.1); Sodium 138 mmol/L (135-145); Total Bilirubin 1.2 mg/dl (0.2-1.3); Total Protein 6.7 g/dl (6.3-8.2); eGFR 47.82
[2024-12-21 08:04] LABS: Glucose - Point of Care 247 mg/dl (70-99)
[2024-12-21] MEDS: BUMEX 2 MG IV ×2 (08:34→19:38)
[2024-12-21] MEDS: TOPROL XL 75 MG PO ×2 (08:35→19:42)
[2024-12-21] MEDS: ZAROXOLYN 5 MG PO (08:35)
[2024-12-21] MEDS: XIFAXAN 550 MG PO ×2 (08:35→19:44)
[2024-12-21] MEDS: ASPIR LOW (ENTERIC COATED) 81 MG PO (08:36)
[2024-12-21] MEDS: ROCALTROL 0.25 MCG PO (08:36)
[2024-12-21] MEDS: NEURONTIN 300 MG PO ×2 (08:36→19:44)
[2024-12-21] MEDS: FARXIGA 10 MG PO (08:36)
[2024-12-21] MEDS: CARDIZEM CD 180 MG PO (08:36)
[2024-12-21] MEDS: ALDACTONE 25 MG PO (08:36)
[2024-12-21] MEDS: LANTUS 0.6 UNITS SC (08:38)
[2024-12-21] MEDS: NOVOLOG FLEXPEN 18 UNITS SC ×2 (08:40→12:21)
[2024-12-21] MEDS: NOVOLOG FLEXPEN-MODERATE RESISTANCE 3 UNITS SC ×2 (08:40→17:23)
[2024-12-21] MEDS: DESENEX/MITRAZOL/ZEASORB 1 APPLIC TOPICAL ×2 (08:41→19:49)
--- NOTE | 2024-12-21 10:20 | W.PN.NEPH.PH ---
Today's Communication / Plan
-
hold metolazone
Assessment/Plan
-
IMP:
HFpEF - acute on chronic
CKD 3a cr 1.2-1.4
Type II DM
ETOH Cirrhosis
Lymphedema
Obesity, BMI 46
Intraductal papillary mucinous neoplasm -pancreatic cyst
Anemia
Hypothyroidism
h/o Urinary retention-BPH
Severe PAD, S/P left AKA
HLD
Plan:
follow BMP
continue bumex 2mg IV BID and spironolactone, metolazone added 04/20
hold metolazone
follow bladder scan, if fails a second time, reinsert duran
continue high dose flomax
-
-
Date of Service: December 21, 2024
CC / HPI / ROS
-
Chief Complaint:
CKD
History of Present Illness:
Cr up to 1.6
K low 3.4
BP stable
hgb stable
diuresing with bumex for decompensated HF
Review of Systems:
Off oxygen
no cp
no n/v
Labs
-
Labs:
WBC 4.4 10^3/uL (4.8-10.8) L 12/21/24 06:28
RBC 3.12 10^6/uL (4.70-6.10) L 12/21/24 06:28
Hgb 9.1 g/dL (13.0-18.0) L 12/21/24 06:28
Hct 27.4 % (39.0-52.0) L 12/21/24 06:28
Plt Count 102 10^3/uL (130-400) L 12/21/24 06:28
Sodium 138 mmol/L (135-145) 12/21/24 06:28
Potassium 3.4 mmol/L (3.5-5.1) L 12/21/24 06:28
Chloride 99 mmol/L (98-107) 12/21/24 06:28
Carbon Dioxide 33 mmol/L (22-30) H 12/21/24 06:28
BUN 62 mg/dl (9-20) H 12/21/24 06:28
Creatinine 1.6 mg/dL (0.7-1.3) H 12/21/24 06:28
eGFR 47.82 12/21/24 06:28
Glucose 210 mg/dl (70-99) H 12/21/24 06:28
Calcium 9.5 mg/dl (8.4-10.2) 12/21/24 06:28
Xru-R-Kkzcbzodekf Pept 512 pg/ml 12/08/24 08:51
Albumin 3.7 g/dl (3.5-5.0) 12/21/24 06:28
Physical Exam
-
Vital Signs:
Vital Signs
Temp Pulse Resp BP Pulse Ox
98.8 F 61 16 153/70 94
12/21/24 07:20 12/21/24 08:36 12/21/24 07:20 12/21/24 08:36 12/21/24 08:34
Cardiovascular:: Regular rate and rhythm
Respiratory:: Bilateral: Coarse
Lung Excursion:: Normal
Abdomen:: Nontender and Soft
Bowel Sounds:: Normal
Extremity Edema:: +3: Bilateral:
[2024-12-21] MEDS: KCL 20 MEQ PO (10:26)
[2024-12-21 11:20] VITALS: BP 132/60
--- NOTE | 2024-12-21 12:11 | W.PN.HOSP.TC ---
Today's Communication/Plan
-
Monitor vital signs see plan
Start to retain again, reinsert Theodore if retain second time
Continue with diuresis per nephrology
Continue insulin
Assessment / Plan
Assessment / Plan
SOB with acute hypoxic respiratory insufficiency--on 2-3L O2-- etiologies likely exacerbation of HFpEF (despite pro BNP of 512), Decompensated alcoholic liver cirrhosis not likely as INR WNL and no ascites to tap, gradual weight gain from
immobility? ineffective meds and dose change needed?--apprec renal-patient was on Lasix drip and then pushes. Now back on Bumex IV. Added metolazone
Aspiration episode 12/16 -patient was having mashed potatoes/peas when choked on the food, most of the things patient coughed out although feels may have some food stuck and went into the lungs. Chest x-ray did not show any atelectasis suggestive of
bronchial obstruction. CT with probable developing mid to right lower lobe aspiration pneumonia, switch Zosyn to Augmentin to complete course. Also showed fluid-filled esophagus. GI following. EGD 12/17 without any stricture. Small amount of
food in the stomach. Patient will follow-up with GI outpatient for repeat MRI. Currently tolerating regular diet
Acute hypoxic respiratory insufficiency secondary to aspiration
Monitor, nasal cannula as needed
Wean oxygen as tolerated, now on room air
Hypokalemia
monitor
Urinary Retention secondary to BPH--had st cath--continue Flomax. Theodore DC'd 12/20, started retaining again. If retains second time then we will insert Theodore again. Will need to follow-up with urology. Voiding trial later 12/20 if okay with
nephrology
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
Chronic anemia--Normocytic anemia with thrombocytopenia--likely from liver disease--follow
Paroxysmal SVT/Aflutter-- cont home diltiazem
type 2 IDDM--on home insulin 60u degludec daily, increase aspart to 18 units-- cont home Jardiance.
HTN/HLD- cont statin, metoprolol
Hypothyroidism- cont home levothyroxine
CKD stage 3a-- avoid nephrotoxic agents--apprec renal consult
History of left BKA -this has been done 5 years back. Patient was provided prosthetic leg which has not been able to have it for roughly 4 years due to change in girth of the stump site. Currently patient uses a sliding board discussion and he can
self transfer himself to wheelchair. This was attempted here with physical therapy although patient declined as he does not have the wheelchair that he needs. Discussed with patient that in order to make sure patient can safely be discharged back
to preadmission level care we need the wheelchair. Friend/acquaintance likely to bring wheelchair on Tuesday. Now has wheelchair
DVT proph-- SCDs, lovenox
Code status--FULL CODE
General: Well Developed, Well Nourished and Morbidly Obese
HEENT: Oxygen
Cardiac: Regular Rhythm and S1/S2
GI: Soft, Nontender, Nondistended and Normal Bowel Sounds
Musculoskeletal: No Clubbing, No Cyanosis, Edema, Right Lower Extrem, Edema, Left Lower Extrem and Other (Left BKA)
Neuro: Awake, Alert and Oriented
Psych: Calm
Anticipated Discharge: 24 - 48 hours
Subjective/Interval History
-
Date of Service: December 21, 2024
Denies nausea
Objective Data
-
Labs:
Laboratory Results
12/21/24
06:28
WBC 4.4 L
Hgb 9.1 L
Hct 27.4 L
Plt Count 102 L
Sodium 138
Potassium 3.4 L
Chloride 99
Carbon Dioxide 33 H
BUN 62 H
Creatinine 1.6 H
Glucose 210 H
Calcium 9.5
Total Bilirubin 1.2
AST 26
ALT 26
Alkaline Phosphatase 223 H
Vital Signs:
Vital Signs
Temp Pulse Resp BP Pulse Ox
98.2 F 61 16 132/60 94
12/21/24 11:20 12/21/24 11:20 12/21/24 11:20 12/21/24 11:20 12/21/24 11:20
I&O
12/20/24 12/21/24 12/22/24
06:59 06:59 06:59
Intake Total 1530 / 1530 890 / 890
Output Total 3250 / 3250 4950 / 4950 1200 / 1200
Balance -1720 / -1720 -4060 / -4060 -1200 / -1200
[2024-12-21 12:16] LABS: Glucose - Point of Care 270 mg/dl (70-99)
[2024-12-21] MEDS: NOVOLOG FLEXPEN-MODERATE RESISTANCE 5 UNITS SC (12:20)
--- NOTE | 2024-12-21 12:26 | CM ---
CM following re: discharge planning.
Reviewed pt's chart, met with pt.
PT and OT continue recommending VN services recommended.
A referral to [facility] made yesterday. Pt is accepted for VN services.
Please fax discharge instructions to [facility] at [phone]
D/C plan: return back to [facility] with [facility].
CM will follow with discharge plan updates as hospitalization progresses
--- NOTE | 2024-12-21 15:10 | PTCARENOTE ---
Patient noted with urinary retention. BC for 577mls. Order to place indwelling Theodore and initiated. 14 Fr Theodore draining yellow urine at this time. output 700mls. No s/s of distress noted at this time. Plan of care ongoing.
[2024-12-21 15:30] VITALS: BP 116/46
[2024-12-21 16:57] LABS: Glucose - Point of Care 225 mg/dl (70-99)
[2024-12-21] MEDS: NOVOLOG FLEXPEN 20 UNITS SC (17:22)
[2024-12-21] MEDS: LOVENOX 40 MG SC (17:23)
[2024-12-21] MEDS: VITAMIN B-12 1000 MCG PO (17:24)
[2024-12-21 19:26] VITALS: BP 130/58
[2024-12-21] MEDS: FLUSH (NSS) 2 FLUSH IV (19:41)
[2024-12-21] MEDS: DILAUDID 8 MG PO (19:57)
[2024-12-21] MEDS: FLOMAX 0.8 MG PO (21:13)
[2024-12-21] MEDS: LIPITOR 40 MG PO (21:13)
[2024-12-21 21:42] LABS: Glucose - Point of Care 253 mg/dl (70-99)
[2024-12-21 23:09] VITALS: BP 120/51
[2024-12-22 03:36] VITALS: BP 126/58
[2024-12-22 05:22] VITALS: BMI 39.7
[2024-12-22] MEDS: SYNTHROID 137 MCG PO (06:20)
[2024-12-22 06:48] LABS: % Basophils 0.7 % (0-2); % Eosinophils 5.4 % (0-6); % Immature Granulocytes 0.7 % (0-0.5); % Lymphocytes 22.5 % (20.5-51.1); % Monocytes 8.7 % (1.7-9.3); Absolute Eosinophils 0.2 10^3/uL (0-0.7); Absolute Monocytes 0.4 10^3/uL (0.1-0.6); Absolute Neutrophils 2.6 10^3/uL (1.4-6.5); Hematocrit 28.1 % (39.0-52.0); Hemoglobin 9.3 g/dL (13.0-18.0); Mean Corp Hgb Conc. 33.1 g/dL (33.0-37.0); Mean Corpuscular Hgb 29.2 pg (27.0-31.0); Mean Corpuscular Volume 88.1 fL (80.0-94.0); Mean Platelet Volume 10.6 fL (7.4-10.4); Nucleated Red Blood Cells % 0 % (-); Platelet Count 108 10^3/uL (130-400); Red Blood Cell Count 3.19 10^6/uL (4.70-6.10); White Blood Cell Count 4.3 10^3/uL (4.8-10.8)
[2024-12-22 07:05] VITALS: BP 121/54
[2024-12-22 07:40] LABS: ALT (SGPT) 24 U/L (0-50); AST (SGOT) 24 U/L (17-59); Albumin 3.7 g/dl (3.5-5.0); Alkaline Phosphatase 207 U/L (38-126); Blood Urea Nitrogen 66 mg/dl (9-20); Calcium 9.5 mg/dl (8.4-10.2); Carbon Dioxide 32 mmol/L (22-30); Chloride 97 mmol/L (98-107); Estimated Creatinine Clearance 58 ml/min; Glucose 238 mg/dl (70-99); Potassium 3.4 mmol/L (3.5-5.1); Sodium 137 mmol/L (135-145); Total Bilirubin 0.9 mg/dl (0.2-1.3); Total Protein 6.6 g/dl (6.3-8.2); eGFR 47.82
[2024-12-22 07:40] LABS: Glucose - Point of Care 263 mg/dl (70-99)
[2024-12-22] MEDS: NOVOLOG FLEXPEN-MODERATE RESISTANCE 5 UNITS SC ×2 (08:37→12:35)
[2024-12-22] MEDS: NOVOLOG FLEXPEN 20 UNITS SC ×2 (08:38→12:35)
[2024-12-22] MEDS: LANTUS 0.6 UNITS SC (08:39)
[2024-12-22] MEDS: BUMEX 2 MG IV (08:42)
[2024-12-22] MEDS: TOPROL XL 75 MG PO ×2 (08:43→19:32)
[2024-12-22] MEDS: KCL 40 MEQ PO (08:43)
[2024-12-22] MEDS: XIFAXAN 550 MG PO ×2 (08:43→19:30)
[2024-12-22] MEDS: FARXIGA 10 MG PO (08:44)
[2024-12-22] MEDS: NEURONTIN 300 MG PO ×2 (08:44→19:30)
[2024-12-22] MEDS: ASPIR LOW (ENTERIC COATED) 81 MG PO (08:44)
[2024-12-22] MEDS: ROCALTROL 0.25 MCG PO (08:44)
[2024-12-22] MEDS: CARDIZEM CD 180 MG PO (08:44)
[2024-12-22] MEDS: ALDACTONE 25 MG PO (08:44)
[2024-12-22] MEDS: DESENEX/MITRAZOL/ZEASORB 1 APPLIC TOPICAL ×2 (08:45→19:34)
--- NOTE | 2024-12-22 09:23 | W.PN.NEPH.PH ---
Today's Communication / Plan
-
po bumex
Assessment/Plan
-
IMP:
HFpEF - acute on chronic
CKD 3a cr 1.2-1.4
Type II DM
ETOH Cirrhosis
Lymphedema
Obesity, BMI 46
Intraductal papillary mucinous neoplasm -pancreatic cyst
Anemia
Hypothyroidism
h/o Urinary retention-BPH
Severe PAD, S/P left AKA
HLD
Plan:
follow BMP
no metolazone
convert to po bumex
continue high dose flomax
maintain duran, will need OP urology f/u
-
-
Date of Service: December 22, 2024
CC / HPI / ROS
-
Chief Complaint:
CKD
History of Present Illness:
Cr stable at 1.6
K low 3.4
BP stable
hgb stable
diuresing with IV bumex for decompensated HF
Review of Systems:
Off oxygen
no cp
no n/v
duran replaced 12/21 for retention, failed voiding trial
Labs
-
Labs:
WBC 4.3 10^3/uL (4.8-10.8) L 12/22/24 06:09
RBC 3.19 10^6/uL (4.70-6.10) L 12/22/24 06:09
Hgb 9.3 g/dL (13.0-18.0) L 12/22/24 06:09
Hct 28.1 % (39.0-52.0) L 12/22/24 06:09
Plt Count 108 10^3/uL (130-400) L 12/22/24 06:09
Sodium 137 mmol/L (135-145) 12/22/24 06:09
Potassium 3.4 mmol/L (3.5-5.1) L 12/22/24 06:09
Chloride 97 mmol/L (98-107) L 12/22/24 06:09
Carbon Dioxide 32 mmol/L (22-30) H 12/22/24 06:09
BUN 66 mg/dl (9-20) H 12/22/24 06:09
Creatinine 1.6 mg/dL (0.7-1.3) H 12/22/24 06:09
eGFR 47.82 12/22/24 06:09
Glucose 238 mg/dl (70-99) H 12/22/24 06:09
Calcium 9.5 mg/dl (8.4-10.2) 12/22/24 06:09
Nak-H-Wuomvxyvsoo Pept 512 pg/ml 12/08/24 08:51
Albumin 3.7 g/dl (3.5-5.0) 12/22/24 06:09
Physical Exam
-
Vital Signs:
Vital Signs
Temp Pulse Resp BP Pulse Ox
97.6 F 62 16 121/54 94
12/22/24 07:05 12/22/24 08:44 12/22/24 07:05 12/22/24 08:44 12/22/24 07:05
Cardiovascular:: Regular rate and rhythm
Respiratory:: Bilateral: Coarse
Lung Excursion:: Normal
Abdomen:: Nontender and Soft
Bowel Sounds:: Normal
Extremity Edema:: +2: Bilateral:
[2024-12-22 11:10] VITALS: BP 131/58
[2024-12-22 11:30] LABS: Glucose - Point of Care 298 mg/dl (70-99)
--- NOTE | 2024-12-22 13:18 | W.PN.HOSP.TC ---
Today's Communication/Plan
-
Monitor vital signs see plan
Continue with diuresis
Repeat potassium
Increase insulin
Assessment / Plan
Assessment / Plan
SOB with acute hypoxic respiratory insufficiency--on 2-3L O2-- etiologies likely exacerbation of HFpEF (despite pro BNP of 512), Decompensated alcoholic liver cirrhosis not likely as INR WNL and no ascites to tap, gradual weight gain from
immobility? ineffective meds and dose change needed?--apprec renal-patient was on Lasix drip and then pushes. Trial of p.o. Bumex per nephro. No movement found
Aspiration episode 12/16 -patient was having mashed potatoes/peas when choked on the food, most of the things patient coughed out although feels may have some food stuck and went into the lungs. Chest x-ray did not show any atelectasis suggestive of
bronchial obstruction. CT with probable developing mid to right lower lobe aspiration pneumonia, switch Zosyn to Augmentin to complete course. Also showed fluid-filled esophagus. GI following. EGD 12/17 without any stricture. Small amount of
food in the stomach. Patient will follow-up with GI outpatient for repeat MRI. Currently tolerating regular diet
Acute hypoxic respiratory insufficiency secondary to aspiration
Monitor, nasal cannula as needed
Wean oxygen as tolerated, now on room air
Hypokalemia
monitor, replete
Urinary Retention secondary to BPH--had st cath--continue Flomax. Theodore DC'd 12/20, started retaining again. If retains second time then we will insert Theodore again. Will need to follow-up with urology. Voiding trial later 12/20 if okay with
nephrology
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
Chronic anemia--Normocytic anemia with thrombocytopenia--likely from liver disease--follow
Paroxysmal SVT/Aflutter-- cont home diltiazem
type 2 IDDM--increase insulin-- cont home Jardiance.
HTN/HLD- cont statin, metoprolol
Hypothyroidism- cont home levothyroxine
CKD stage 3a-- avoid nephrotoxic agents--apprec renal consult
History of left BKA -this has been done 5 years back. Patient was provided prosthetic leg which has not been able to have it for roughly 4 years due to change in girth of the stump site. Currently patient uses a sliding board discussion and he can
self transfer himself to wheelchair. This was attempted here with physical therapy although patient declined as he does not have the wheelchair that he needs. Discussed with patient that in order to make sure patient can safely be discharged back
to preadmission level care we need the wheelchair. Friend/acquaintance likely to bring wheelchair on Tuesday. Now has wheelchair
DVT proph-- SCDs, lovenox
Code status--FULL CODE
General: Well Developed, Well Nourished and Morbidly Obese
HEENT: Oxygen
Cardiac: Regular Rhythm and S1/S2
GI: Soft, Nontender, Nondistended and Normal Bowel Sounds
Musculoskeletal: No Clubbing, No Cyanosis, Edema, Right Lower Extrem, Edema, Left Lower Extrem and Other (Left BKA)
Neuro: Awake, Alert and Oriented
Psych: Calm
Anticipated Discharge: 24 - 48 hours
Subjective/Interval History
-
Date of Service: December 22, 2024
Denies pain
Objective Data
-
Labs:
Laboratory Results
12/22/24
06:09
WBC 4.3 L
Hgb 9.3 L
Hct 28.1 L
Plt Count 108 L
Sodium 137
Potassium 3.4 L
Chloride 97 L
Carbon Dioxide 32 H
BUN 66 H
Creatinine 1.6 H
Glucose 238 H
Calcium 9.5
Total Bilirubin 0.9
AST 24
ALT 24
Alkaline Phosphatase 207 H
Vital Signs:
Vital Signs
Temp Pulse Resp BP Pulse Ox
97.9 F 61 16 131/58 94
12/22/24 11:10 12/22/24 11:10 12/22/24 11:10 12/22/24 11:10 12/22/24 11:10
I&O
12/21/24 12/22/24 12/23/24
06:59 06:59 06:59
Intake Total 890 / 890 1500 / 1500
Output Total 4950 / 4950 4670 / 4670
Balance -4060 / -4060 -3170 / -3170
[2024-12-22 15:05] VITALS: BP 133/59
[2024-12-22 16:39] LABS: Glucose - Point of Care 232 mg/dl (70-99)
[2024-12-22] MEDS: VITAMIN B-12 1000 MCG PO (16:59)
[2024-12-22] MEDS: LOVENOX 40 MG SC (16:59)
[2024-12-22] MEDS: BUMEX 2 MG PO (16:59)
[2024-12-22] MEDS: NOVOLOG FLEXPEN 22 UNITS SC (17:36)
[2024-12-22] MEDS: NOVOLOG FLEXPEN-MODERATE RESISTANCE 3 UNITS SC (17:36)
[2024-12-22 19:23] VITALS: BP 119/57
[2024-12-22] MEDS: DILAUDID 8 MG PO (19:58)
[2024-12-22 21:05] LABS: Glucose - Point of Care 181 mg/dl (70-99)
[2024-12-22] MEDS: LIPITOR 40 MG PO (21:13)
[2024-12-22] MEDS: FLOMAX 0.8 MG PO (21:14)
[2024-12-22 23:20] VITALS: BP 112/58
[2024-12-23 03:19] VITALS: BP 118/59
[2024-12-23 04:54] VITALS: BMI 38.9
[2024-12-23] MEDS: SYNTHROID 137 MCG PO (05:27)
[2024-12-23 06:15] LABS: % Basophils 0.7 % (0-2); % Eosinophils 5.9 % (0-6); % Immature Granulocytes 0.9 % (0-0.5); % Lymphocytes 21.2 % (20.5-51.1); % Monocytes 8.7 % (1.7-9.3); % Neutrophils 62.6 % (42.2-75.2); Absolute Eosinophils 0.3 10^3/uL (0-0.7); Absolute Immature Granulocytes 0.1 10^3/uL (0-0.05); Absolute Lymphocytes 1.2 10^3/uL (1.2-3.4); Absolute Monocytes 0.5 10^3/uL (0.1-0.6); Absolute Neutrophils 3.4 10^3/uL (1.4-6.5); Hemoglobin 9.8 g/dL (13.0-18.0); Mean Corp Hgb Conc. 33.8 g/dL (33.0-37.0); Mean Corpuscular Hgb 29.6 pg (27.0-31.0); Mean Corpuscular Volume 87.6 fL (80.0-94.0); Mean Platelet Volume 10.1 fL (7.4-10.4); Nucleated Red Blood Cells % 0 % (-); Platelet Count 116 10^3/uL (130-400); Red Blood Cell Count 3.31 10^6/uL (4.70-6.10); Red Cell Dist. Width 14.9 % (11.5-14.5); White Blood Cell Count 5.4 10^3/uL (4.8-10.8)
[2024-12-23 06:44] LABS: ALT (SGPT) 27 U/L (0-50); AST (SGOT) 27 U/L (17-59); Albumin 3.8 g/dl (3.5-5.0); Alkaline Phosphatase 218 U/L (38-126); Blood Urea Nitrogen 68 mg/dl (9-20); Calcium 9.3 mg/dl (8.4-10.2); Carbon Dioxide 28 mmol/L (22-30); Chloride 97 mmol/L (98-107); Estimated Creatinine Clearance 58 ml/min; Glucose 225 mg/dl (70-99); Potassium 3.6 mmol/L (3.5-5.1); Sodium 137 mmol/L (135-145); Total Bilirubin 0.9 mg/dl (0.2-1.3); Total Protein 6.8 g/dl (6.3-8.2); eGFR 47.82
[2024-12-23 07:15] VITALS: BP 115/53
[2024-12-23 07:21] LABS: Glucose - Point of Care 259 mg/dl (70-99)
[2024-12-23] MEDS: NOVOLOG FLEXPEN 22 UNITS SC ×2 (08:43→11:53)
[2024-12-23] MEDS: NOVOLOG FLEXPEN-MODERATE RESISTANCE 5 UNITS SC (08:43)
[2024-12-23] MEDS: ROCALTROL 0.25 MCG PO (08:44)
[2024-12-23] MEDS: CARDIZEM CD 180 MG PO (08:44)
[2024-12-23] MEDS: TOPROL XL 75 MG PO ×2 (08:45→19:50)
[2024-12-23] MEDS: XIFAXAN 550 MG PO ×2 (08:46→19:50)
[2024-12-23] MEDS: ALDACTONE 25 MG PO (08:46)
[2024-12-23] MEDS: DESENEX/MITRAZOL/ZEASORB 1 APPLIC TOPICAL ×2 (08:46→19:48)
[2024-12-23] MEDS: ASPIR LOW (ENTERIC COATED) 81 MG PO (08:46)
[2024-12-23] MEDS: FARXIGA 10 MG PO (08:46)
[2024-12-23] MEDS: BUMEX 2 MG PO (08:46)
[2024-12-23] MEDS: NEURONTIN 300 MG PO ×2 (08:46→19:49)
[2024-12-23] MEDS: LANTUS 0.65 UNITS SC (08:47)
[2024-12-23 11:10] VITALS: BP 150/80
--- NOTE | 2024-12-23 11:11 | W.PN.HOSP.TC ---
Today's Communication/Plan
-
monitor vitals
see plan
cw PO bumex and monitor renal function
maintain duran; needs urology follow-up outpatient
possible dc tomorrow
Assessment / Plan
Assessment / Plan
SOB with acute hypoxic respiratory insufficiency--on 2-3L O2-- etiologies likely exacerbation of HFpEF (despite pro BNP of 512), Decompensated alcoholic liver cirrhosis not likely as INR WNL and no ascites to tap, gradual weight gain from
immobility? ineffective meds and dose change needed?--apprec renal-patient was on Lasix drip and then pushes. Trial of p.o. Bumex per nephro.
Aspiration episode 12/16 -patient was having mashed potatoes/peas when choked on the food, most of the things patient coughed out although feels may have some food stuck and went into the lungs. Chest x-ray did not show any atelectasis suggestive of
bronchial obstruction. CT with probable developing mid to right lower lobe aspiration pneumonia, switch Zosyn to Augmentin to complete course. Also showed fluid-filled esophagus. GI following. EGD 12/17 without any stricture. Small amount of
food in the stomach. Patient will follow-up with GI outpatient for repeat MRI. Currently tolerating regular diet
Acute hypoxic respiratory insufficiency secondary to aspiration
Monitor, nasal cannula as needed
Wean oxygen as tolerated, now on room air
Hypokalemia
monitor, replete
Urinary Retention secondary to BPH--had st cath--continue Flomax. Duran DC'd 12/20, started retaining again. If retains second time then we will insert Duran again. Will need to follow-up with urology outpatient
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
Chronic anemia--Normocytic anemia with thrombocytopenia--likely from liver disease--follow
Paroxysmal SVT/Aflutter-- cont home diltiazem
type 2 IDDM--increase insulin-- cont home Jardiance.
HTN/HLD- cont statin, metoprolol
Hypothyroidism- cont home levothyroxine
CKD stage 3a-- avoid nephrotoxic agents--apprec renal consult
History of left BKA -this has been done 5 years back. Patient was provided prosthetic leg which has not been able to have it for roughly 4 years due to change in girth of the stump site. Currently patient uses a sliding board discussion and he can
self transfer himself to wheelchair. This was attempted here with physical therapy although patient declined as he does not have the wheelchair that he needs. Discussed with patient that in order to make sure patient can safely be discharged back
to preadmission level care we need the wheelchair. Friend/acquaintance brought wheelchair. Now he has no way to go home today and reporting feeling week. Discharge possibly tomorrow
DVT proph-- SCDs, lovenox
Code status--FULL CODE
General: Well Developed, Well Nourished and Morbidly Obese
HEENT: Oxygen
Cardiac: Regular Rhythm and S1/S2
GI: Soft, Nontender, Nondistended and Normal Bowel Sounds
Musculoskeletal: Edema, Right Lower Extrem, Edema, Left Lower Extrem and Other (Left BKA)
Neuro: Awake, Alert and Oriented
Psych: Calm
Anticipated Discharge: Today
Subjective/Interval History
-
Date of Service: December 23, 2024
denies pain
Objective Data
-
Labs:
Laboratory Results
12/23/24
05:30
WBC 5.4
Hgb 9.8 L
Hct 29.0 L
Plt Count 116 L
Sodium 137
Potassium 3.6
Chloride 97 L
Carbon Dioxide 28
BUN 68 H
Creatinine 1.6 H
Glucose 225 H
Calcium 9.3
Total Bilirubin 0.9
AST 27
ALT 27
Alkaline Phosphatase 218 H
Vital Signs:
Vital Signs
Temp Pulse Resp BP Pulse Ox
97.6 F 62 16 115/53 97
12/23/24 07:15 12/23/24 08:46 12/23/24 07:15 12/23/24 08:46 12/23/24 08:00
I&O
12/22/24 12/23/24 12/24/24
06:59 06:59 06:59
Intake Total 1500 / 1500 2370 / 2370
Output Total 4670 / 4670 3800 / 3800
Balance -3170 / -3170 -1430 / -1430
--- NOTE | 2024-12-23 11:12 | W.PN.NEPH.PH ---
Today's Communication / Plan
-
reduce bumex
Assessment/Plan
-
IMP:
HFpEF - acute on chronic
CKD 3a cr 1.2-1.4
Type II DM
ETOH Cirrhosis
Lymphedema
Obesity, BMI 46
Intraductal papillary mucinous neoplasm -pancreatic cyst
Anemia
Hypothyroidism
h/o Urinary retention-BPH
Severe PAD, S/P left AKA
HLD
Plan:
follow BMP
no metolazone
reduce bumex to /
continue high dose flomax
maintain duran, will need OP urology f/u
-
-
Date of Service: December 23, 2024
CC / HPI / ROS
-
Chief Complaint:
CKD
History of Present Illness:
Cr stable at 1.6
K low 3.4
BP stable
hgb stable
diuresing with po bumex
Review of Systems:
Off oxygen
no cp
no n/v
duran replaced 12/21 for retention, failed voiding trial
Labs
-
Labs:
WBC 5.4 10^3/uL (4.8-10.8) 12/23/24 05:30
RBC 3.31 10^6/uL (4.70-6.10) L 12/23/24 05:30
Hgb 9.8 g/dL (13.0-18.0) L 12/23/24 05:30
Hct 29.0 % (39.0-52.0) L 12/23/24 05:30
Plt Count 116 10^3/uL (130-400) L 12/23/24 05:30
Sodium 137 mmol/L (135-145) 12/23/24 05:30
Potassium 3.6 mmol/L (3.5-5.1) 12/23/24 05:30
Chloride 97 mmol/L (98-107) L 12/23/24 05:30
Carbon Dioxide 28 mmol/L (22-30) 12/23/24 05:30
BUN 68 mg/dl (9-20) H 12/23/24 05:30
Creatinine 1.6 mg/dL (0.7-1.3) H 12/23/24 05:30
eGFR 47.82 12/23/24 05:30
Glucose 225 mg/dl (70-99) H 12/23/24 05:30
Calcium 9.3 mg/dl (8.4-10.2) 12/23/24 05:30
Kuh-K-Dysugnypuhe Pept 512 pg/ml 12/08/24 08:51
Albumin 3.8 g/dl (3.5-5.0) 12/23/24 05:30
Physical Exam
-
Vital Signs:
Vital Signs
Temp Pulse Resp BP Pulse Ox
97.6 F 62 16 115/53 97
12/23/24 07:15 12/23/24 08:46 12/23/24 07:15 12/23/24 08:46 12/23/24 08:00
Cardiovascular:: Regular rate and rhythm
Respiratory:: Bilateral: CTA
Lung Excursion:: Normal
Abdomen:: Nontender and Soft
Bowel Sounds:: Normal
Extremity Edema:: +1: Bilateral:
[2024-12-23] MEDS: NOVOLOG FLEXPEN-MODERATE RESISTANCE 7 UNITS SC (11:51)
[2024-12-23 11:52] LABS: Glucose - Point of Care 323 mg/dl (70-99)
[2024-12-23 15:10] VITALS: BP 130/59
[2024-12-23 17:04] LABS: Glucose - Point of Care 201 mg/dl (70-99)
[2024-12-23] MEDS: NOVOLOG FLEXPEN 24 UNITS SC (17:09)
[2024-12-23] MEDS: BUMEX 1 MG PO (17:09)
[2024-12-23] MEDS: NOVOLOG FLEXPEN-MODERATE RESISTANCE 3 UNITS SC (17:11)
[2024-12-23] MEDS: VITAMIN B-12 1000 MCG PO (17:14)
[2024-12-23] MEDS: LOVENOX 40 MG SC (17:14)
[2024-12-23 19:43] VITALS: BP 121/56
[2024-12-23 21:09] LABS: Glucose - Point of Care 241 mg/dl (70-99)
[2024-12-23] MEDS: FLOMAX 0.8 MG PO (22:47)
[2024-12-23] MEDS: LIPITOR 40 MG PO (22:47)
[2024-12-23 23:06] VITALS: BP 134/61
[2024-12-24 03:07] VITALS: BP 123/54
[2024-12-24 05:08] VITALS: BMI 38.8
[2024-12-24 06:58] LABS: % Basophils 0.6 % (0-2); % Eosinophils 4.1 % (0-6); % Immature Granulocytes 0.7 % (0-0.5); % Lymphocytes 17.4 % (20.5-51.1); % Monocytes 7.9 % (1.7-9.3); % Neutrophils 69.3 % (42.2-75.2); Absolute Eosinophils 0.2 10^3/uL (0-0.7); Absolute Lymphocytes 0.9 10^3/uL (1.2-3.4); Absolute Monocytes 0.4 10^3/uL (0.1-0.6); Absolute Neutrophils 3.7 10^3/uL (1.4-6.5); Hemoglobin 10.1 g/dL (13.0-18.0); Mean Corp Hgb Conc. 33.7 g/dL (33.0-37.0); Mean Corpuscular Hgb 29.7 pg (27.0-31.0); Mean Corpuscular Volume 88.2 fL (80.0-94.0); Mean Platelet Volume 10.9 fL (7.4-10.4); Nucleated Red Blood Cells % 0 % (-); Platelet Count 127 10^3/uL (130-400); White Blood Cell Count 5.3 10^3/uL (4.8-10.8)
[2024-12-24 07:00] VITALS: BP 126/55
[2024-12-24 07:24] LABS: ALT (SGPT) 28 U/L (0-50); AST (SGOT) 28 U/L (17-59); Albumin 3.8 g/dl (3.5-5.0); Alkaline Phosphatase 218 U/L (38-126); Blood Urea Nitrogen 78 mg/dl (9-20); Calcium 9.7 mg/dl (8.4-10.2); Carbon Dioxide 29 mmol/L (22-30); Chloride 98 mmol/L (98-107); Estimated Creatinine Clearance 58 ml/min; Glucose 195 mg/dl (70-99); Potassium 3.4 mmol/L (3.5-5.1); Sodium 138 mmol/L (135-145); Total Bilirubin 0.8 mg/dl (0.2-1.3); eGFR 47.82
[2024-12-24] MEDS: XIFAXAN 550 MG PO (08:08)
[2024-12-24] MEDS: ASPIR LOW (ENTERIC COATED) 81 MG PO (08:08)
[2024-12-24] MEDS: FARXIGA 10 MG PO (08:08)
[2024-12-24] MEDS: SYNTHROID 137 MCG PO (08:08)
[2024-12-24] MEDS: ROCALTROL 0.25 MCG PO (08:08)
[2024-12-24] MEDS: NEURONTIN 300 MG PO (08:08)
[2024-12-24 08:14] LABS: Glucose - Point of Care 229 mg/dl (70-99)
[2024-12-24] MEDS: CARDIZEM CD 180 MG PO (08:15)
[2024-12-24] MEDS: ALDACTONE 25 MG PO (08:15)
[2024-12-24] MEDS: TOPROL XL 75 MG PO (08:15)
[2024-12-24] MEDS: BUMEX 2 MG PO (08:17)
[2024-12-24] MEDS: NOVOLOG FLEXPEN-MODERATE RESISTANCE 3 UNITS SC (08:17)
[2024-12-24] MEDS: NOVOLOG FLEXPEN 24 UNITS SC ×2 (08:18→13:05)
[2024-12-24] MEDS: LANTUS 0.68 UNITS SC (08:19)
[2024-12-24] MEDS: BUMEX 1 MG PO (08:20)
[2024-12-24] MEDS: DESENEX/MITRAZOL/ZEASORB 1 APPLIC TOPICAL (08:21)
[2024-12-24 11:14] VITALS: BP 130/58
[2024-12-24 11:48] LABS: Glucose - Point of Care 196 mg/dl (70-99)
[2024-12-24] MEDS: NOVOLOG FLEXPEN-MODERATE RESISTANCE 1 UNITS SC (13:04)
--- NOTE | 2024-12-24 13:28 | W.DCSUMMARY ---
Discharge Summary
Discharge Data
Date of Admission: 12/08/24
Date of Discharge: 12/24/24
-
Pending Results: No
Hospital Course
SOB with acute hypoxic respiratory insufficiency--on 2-3L O2-- etiologies likely exacerbation of HFpEF (despite pro BNP of 512), Decompensated alcoholic liver cirrhosis not likely as INR WNL and no ascites to tap, gradual weight gain from
immobility? ineffective meds and dose change needed?--apprec renal-patient was on Lasix drip and then pushes. Trial of p.o. Bumex per nephro.
Aspiration episode 12/16 -patient was having mashed potatoes/peas when choked on the food, most of the things patient coughed out although feels may have some food stuck and went into the lungs. Chest x-ray did not show any atelectasis suggestive of
bronchial obstruction. CT with probable developing mid to right lower lobe aspiration pneumonia, switch Zosyn to Augmentin to complete course. Also showed fluid-filled esophagus. GI following. EGD 12/17 without any stricture. Small amount of
food in the stomach. Patient will follow-up with GI outpatient for repeat MRI. Currently tolerating regular diet
Acute hypoxic respiratory insufficiency secondary to aspiration
Monitor, nasal cannula as needed
Wean oxygen as tolerated, now on room air
Hypokalemia
monitor, replete
Urinary Retention secondary to BPH--had st cath--continue Flomax. Theodore DC'd 12/20, started retaining again. If retains second time then we will insert Theodore again. Will need to follow-up with urology outpatient
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
Chronic anemia--Normocytic anemia with thrombocytopenia--likely from liver disease--follow
Paroxysmal SVT/Aflutter-- cont home diltiazem
type 2 IDDM--increase insulin-- cont home Jardiance.
HTN/HLD- cont statin, metoprolol
Hypothyroidism- cont home levothyroxine
CKD stage 3a-- avoid nephrotoxic agents--apprec renal consult
Discharge Plan
-
Patient Disposition: Home with Home Care
Discharge Diagnosis/Procedures: Shortness of breath with acute hypoxic respiratory insufficiency secondary to congestive heart failure exacerbation and cirrhosis
Food impaction with possible aspiration
Urinary retention
Diabetes mellitus
Diet: 2 Gram Sodium, Diabetic, Carb Controlled and Restrict fluids to 48 oz
Activity: With assistance and As tolerated
Driving Restrictions: Not until seen by your Dr
Blood Work: BMP with primary care provider
Instructions: *PCP/Other Curriculum Coach Heart Failure Instructions
Referrals:
Fely Gabriel MD [Active, Pulmonary Medicine] - in one to two months
Referral Note: Sleep clinic for oxygen testing, nocturnal oxygen testing and/or HST
Erasmo Calero DO [Family Provider, Physical Medicine / Rehab] - in less than 1 week
Chip Chaves MD [Active, Urology] - in one week
Cata Wade MD [Active, Gastroenterology]
Rosio Early MD [Active, Nephrology]
Prescriptions:
New
bumetanide 1 mg Tablet
1 mg PO DAILY Qty: 30 0RF
bumetanide 2 mg Tablet
2 mg PO DAILY Qty: 30 0RF
Continued
atorvastatin 40 MG tablet
40 mg PO HS
aspirin 81 MG tablet,delayed release (DR/EC)
81 mg PO DAILY
calcitriol 0.25 MCG capsule
0.25 mcg PO DAILY
insulin degludec [Tresiba FlexTouch U-200] 200 unit/mL (3 mL) insulin pen
60 unit SC DAILY
magnesium oxide 500 mg Tablet
500 mg PO DAILY
Centrum Silver Men [id number] mcg Tablet
1 tab PO DAILY
Xifaxan 550 mg tablet
550 mg PO BID
cyanocobalamin (vitamin B-12) 1,000 mcg Tablet
1,000 mcg PO QPM
gabapentin 300 mg capsule
300 mg PO BID
levothyroxine 137 mcg tablet
137 mcg PO DAILY@0700
Jardiance 10 mg Tablet
10 mg PO DAILY 30 Days Qty: 30 0RF
tamsulosin 0.4 mg capsule
0.8 mg PO HS Qty: 30 0RF
hydromorphone 8 mg Tablet
8 mg PO TIDPRN PRN (Reason: severe pain)
insulin aspart U-100 [Novolog FlexPen U-100 Insulin] 100 unit/mL (3 mL) insulin pen
22 sliding scale dose SC AC
diltiazem HCl 180 mg Capsule,Extended Release 24hr
180 mg PO DAILY Qty: 30 0RF
metoprolol succinate 50 mg Tablet Extended Release 24 Hr
75 mg PO BID
polyethylene glycol 3350 17 gram powder in packet
17 g PO DAILYPRN PRN (Reason: constipation)
Changed
spironolactone 25 mg Tablet
25 mg PO DAILY Qty: 30 2RF
Discontinued
bumetanide 1 mg Tablet
2 mg PO DAILY
Discharge Orders:
Discharge Patient (As Directed); Ordered 12/24/24
Ordered By: Federico Waller
Discharge Date and Time
Print Language: COMORAN
--- NOTE | 2024-12-24 13:35 | CM ---
CM following re: discharge planning.
Reviewed pt's chart, met with pt.
Discharge order noted.
Pt is aware, expressed his agreement with discharge and he stated his brother will transport home. Pt is aware, he will have [facility] services upon the discharge.
Updated clinical faxed to [facility]
Please fax discharge instructions to [facility] at [phone]
D/C plan: return back to [facility] with [facility]. Brother to transport.
--- NOTE | 2024-12-24 13:36 | W.DS.TRANS ---
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
-
Discharge Instructions:
Sleep Apnea Risk High
Discharge Diagnosis/Procedures Shortness of breath with acute hypoxic
respiratory insufficiency secondary to
congestive heart failure exacerbation and
cirrhosis
Food impaction with possible aspiration
Urinary retention
Diabetes mellitus
Diet 2 Gram Sodium,Restrict fluids to 48 oz,Diabetic,
Carb Controlled
Activity With assistance,As tolerated
Driving Restrictions Not until seen by your Dr
Blood Work BMP with primary care provider
Instructions: *PCP/Other Architectural Sales Consultant Heart Failure Instructions
Stand-Alone Forms:
Changes to Home Medications: Yes
Discharge Medications:
DC Medications w/original date entered in [employer]
aspirin 81 mg tablet,delayed release 81 mg PO DAILY Blood clot prevention/tx 09/25/19
atorvastatin 40 mg tablet 40 mg PO HS High cholesterol 09/25/19
calcitriol 0.25 mcg capsule 0.25 mcg PO DAILY Kidney Disease 09/25/19
insulin degludec 200 unit/mL (3 mL) subcutaneous pen (Tresiba FlexTouch U-200 insulin) 60 unit SC DAILY Diabetes 09/20/22
magnesium oxide 500 mg PO DAILY Supplement 05/05/23
fxvjdxne-uq-bxtrq 300 mcg-K 60 mcg-lycop 600 mcg-lutein 300 mcg tablet (Centrum Silver Men) 1 tab PO DAILY Supplement 07/22/23
rifaximin 550 mg tablet (Xifaxan) 550 mg PO BID Liver Issues 08/18/23
cyanocobalamin (vitamin B-12) 1,000 mcg tablet 1,000 mcg PO QPM Supplement 09/02/23
gabapentin 300 mg capsule 300 mg PO BID Neurological Condition 09/02/23
levothyroxine 137 mcg tablet 137 mcg PO DAILY@0700 Thyroid 09/02/23
empagliflozin 10 mg tablet (Jardiance) 10 mg PO DAILY CHF 1 month #30 tabs 02/26/24
tamsulosin 0.4 mg capsule 0.8 mg (2 x 0.4 mg) PO HS prostate #30 caps 08/17/24
hydromorphone 8 mg tablet 8 mg PO TIDPRN PRN severe pain 08/06/24
insulin aspart U-100 100 unit/mL (3 mL) subcutaneous pen (Novolog FlexPen U-100 Insulin aspart) 22 sliding scale dose SC AC Diabetes 08/06/24
diltiazem HCl 180 mg capsule,extended release 24 hr 180 mg PO DAILY #30 caps 08/11/24
metoprolol succinate 50 mg tablet,extended release 24 hr 75 mg PO BID Blood Pressure 10/09/24
polyethylene glycol 3350 17 gram oral powder packet 17 g PO DAILYPRN PRN constipation 10/09/24
bumetanide 1 mg tablet 1 mg PO DAILY #30 tabs 12/24/24
bumetanide 2 mg tablet 2 mg PO DAILY #30 tabs 12/24/24
spironolactone 25 mg tablet 25 mg PO DAILY #30 tabs 12/24/24
Home Medication Changes
Bumex dose changed
Pending Results: No
--- NOTE | 2024-12-24 14:10 | W.PN.NEPH.PH ---
Today's Communication / Plan
-
Stable for discharge creatinine at 1.6
We will arrange follow-up in nephrology office with Dr. Velazquez
Assessment/Plan
-
IMP:
HFpEF - acute on chronic
CKD 3a cr 1.2-1.4
Type II DM
ETOH Cirrhosis
Lymphedema
Obesity, BMI 46
Intraductal papillary mucinous neoplasm -pancreatic cyst
Anemia
Hypothyroidism
h/o Urinary retention-BPH
Severe PAD, S/P left AKA
HLD
Plan:
follow BMP
Replete potassium
no metolazone
reduce bumex to 2/1 at discharge today
continue high dose flomax
maintain duran, will need OP urology f/u
-
-
Date of Service: December 24, 2024
CC / HPI / ROS
-
Chief Complaint:
CKD
History of Present Illness:
Cr stable at 1.6
K low 3.4
BP stable
hgb stable
diuresing with po bumex
Review of Systems:
Off oxygen
no cp
no n/v
duran replaced 12/21 for retention, failed voiding trial
Labs
-
Labs:
WBC 5.3 10^3/uL (4.8-10.8) 12/24/24 06:01
RBC 3.40 10^6/uL (4.70-6.10) L 12/24/24 06:01
Hgb 10.1 g/dL (13.0-18.0) L 12/24/24 06:01
Hct 30.0 % (39.0-52.0) L 12/24/24 06:01
Plt Count 127 10^3/uL (130-400) L 12/24/24 06:01
Sodium 138 mmol/L (135-145) 12/24/24 06:01
Potassium 3.4 mmol/L (3.5-5.1) L 12/24/24 06:01
Chloride 98 mmol/L (98-107) 12/24/24 06:01
Carbon Dioxide 29 mmol/L (22-30) 12/24/24 06:01
BUN 78 mg/dl (9-20) H 12/24/24 06:01
Creatinine 1.6 mg/dL (0.7-1.3) H 12/24/24 06:01
eGFR 47.82 12/24/24 06:01
Glucose 195 mg/dl (70-99) H 12/24/24 06:01
Calcium 9.7 mg/dl (8.4-10.2) 12/24/24 06:01
Atj-V-Ubzgnwrvloq Pept 512 pg/ml 12/08/24 08:51
Albumin 3.8 g/dl (3.5-5.0) 12/24/24 06:01
Physical Exam
-
Vital Signs:
Vital Signs
Temp Pulse Resp BP Pulse Ox
98.3 F 67 16 130/58 95
12/24/24 11:14 12/24/24 11:14 12/24/24 11:14 12/24/24 11:14 12/24/24 11:14
Cardiovascular:: Regular rate and rhythm
Respiratory:: Bilateral: CTA
Lung Excursion:: Normal
Abdomen:: Nontender and Soft
Bowel Sounds:: Normal
Extremity Edema:: +1: Bilateral:
Duran Catheter: Yes
[2024-12-24 15:17] VITALS: BP 128/59
== END 2024-12-24 16:56 | disposition home health service (06) | DRG 291 ==
LOC: 2 NORTH 13:48
PROVIDERS: Internal Medicine; Nurse Practitioner Family; Registered Nurse; ADMITTING PHYSICIAN Internal Medicine; ATTENDING PHYSICIAN Internal Medicine; CONSULT PHYSICIAN Internal Medicine; CONSULT PHYSICIAN Internal Medicine Gastroenterology; EMERGENCY PHYSICIAN Emergency Medicine; FAMILY PHYSICIAN Physical Medicine & Rehabilitation
PROC: 0DJ08ZZ Inspection of Upper Intestinal Tract, Via Natural or Artificial Opening Endoscopic (ICD-10-PCS; 2024-12-17)
DX: I13.0 Hypertensive heart and chronic kidney disease with heart failure and stage 1 through stage 4 chronic kidney disease, or unspecified chronic kidney disease (principal); I50.33 Acute on chronic diastolic (congestive) heart failure; J69.0 Pneumonitis due to inhalation of food and vomit; I48.92 Unspecified atrial flutter; I47.19 Other supraventricular tachycardia; J98.11 Atelectasis; K86.2 Cyst of pancreas; Z68.42 Body mass index [BMI] 45.0-49.9, adult; K70.31 Alcoholic cirrhosis of liver with ascites; E66.01 Morbid (severe) obesity due to excess calories; E03.9 Hypothyroidism, unspecified; E11.40 Type 2 diabetes mellitus with diabetic neuropathy, unspecified; Z79.4 Long term (current) use of insulin; N18.31 Chronic kidney disease, stage 3a; E11.22 Type 2 diabetes mellitus with diabetic chronic kidney disease; D69.6 Thrombocytopenia, unspecified; E78.00 Pure hypercholesterolemia, unspecified; W44.F3XA Food entering into or through a natural orifice, initial encounter; T18.128A Food in esophagus causing other injury, initial encounter; R06.89 Other abnormalities of breathing; R09.02 Hypoxemia; E87.6 Hypokalemia; Z79.899 Other long term (current) drug therapy; Z79.82 Long term (current) use of aspirin
CPT/HCPCS: 51701; 51798; 71045; 71046; 71250; 74178; 80048; 80053; 82728; 82805; 82962; 83540; 83550; 83690; 83735; 83880; 84484; 85025; 85027; 85610; 85730; 93005; 93970; 96374; 97110; 97163; 97167; 97530; 99285; J2916; Q9967